=== PATIENT | male | born 1970 | race Caucasian/White ===

== ENCOUNTER → 2018-05-03 07:13 | Outpatient (CLI) | payer OTHER, MEDICAID, SELFPAY ==
[2018-05-03 08:32] LABS: Add Manual Diff / Slide Review NO; Basophils Percent Auto 0.5 % (0-2); Eosinophils Percent Auto 1.8 % (2-4); Hematocrit 37.7 % (41-53); Lymphocytes Percent Auto 32.8 % (25-40); Mean Corpuscular HGB Conc 31.7 % (30-36); Mean Corpuscular Volume 78.8 fL (80-100); Monocytes Percent Auto 7.7 % (3-14); Neutrophils Absolute Auto 6000 /uL (3000-5900); Neutrophils Percent Auto 57.2 % (50-75); Platelet Count 242 X10^3/uL (150-400); Red Blood Cell Count 4.79 X10^6/uL (4.5-5.9); Red Cell Distribution Width 16.2 % (11.6-14.8); White Blood Cell Count 10.5 X10^3/uL (4.5-11.0)
[2018-05-03 09:06] LABS: Alanine Aminotransferase 36 IU/L (21-72); Albumin 4.3 g/dL (3.5-5.0); Albumin Globulin Ratio 1.4 (1.0-2.8); Alkaline Phosphatase 90 U/L (38-126); Aspartate Aminotransferase 20 IU/L (17-59); Bilirubin Total 0.4 mg/dL (0.2-1.3); Blood Urea Nitrogen 20 mg/dL (9-20); Calcium 9.6 mg/dL (8.4-10.2); Carbon Dioxide 34 mmol/L (22-32); Chloride 99 mmol/L (98-107); Cholesterol 257 mg/dL (140-199); Estimated Glomerular Filt Rate > 60.0 mL/min (>60); Globulin 3.1 g/dL (1.7-4.1); Glucose 134 mg/dL (70-100); HDL Cholesterol 50 mg/dL (40-60); HEMOLYSIS < 15 (0-50); LDL Cholesterol Calculated 161 mg/dL (<100); Sodium 141 mmol/L (137-145); Total Protein 7.4 g/dL (6.3-8.2); Triglycerides 228 mg/dL (35-150)
[2018-05-03 09:20] LABS: Hemoglobin A1C% w Est Avg Glu 7.1 % (4.0-6.0)
[2018-05-03 09:35] LABS: Prostate Specific Antigen Scrn 0.573 ng/mL (0.1-4.0); Thyroid Stimulating Hormone 1.79 uIU/mL (0.47-4.68)
== END ==
PROVIDERS: PCP Family Medicine; Visit Provider Family Medicine
DX: E11.9 Type 2 diabetes mellitus without complications (principal)
CPT/HCPCS: 36415; 80053; 80061; 83036; 84443; 85025; G0103

== ENCOUNTER 2018-06-30 11:10 | Emergency (ER) | payer OTHER, MEDICAID, SELFPAY ==
[2018-06-30 11:20] VITALS: BP 183/95; PULSE 110; RESP 18; TEMP 37; O2SAT 98; BMI 51.5
--- NOTE | 2018-06-30 11:39 | ED.SKABFB ---
HPI - Skin/Abscess/Foreign Bdy General Chief complaint: Skin/Abscess/Foreign Body Stated complaint: BLEED OUT ON L LEG Time Seen by Provider: 06/30/18 11:29 Source: patient Mode of arrival: ambulatory Limitations: no limitations History of Present Illness HPI narrative: patient is a 48-year-old male here for evaluation of a bleeding varicose vein in his left lower extremity. Patient states that it started this morning when he is in the shower. States that it bled for approximately 30 min. He did put pressure over the area however blood through all the dressings that he had. He called 911 and they put a pressure dressing on it. Patient arrived here to the emergency department by POV. Related Data Home Medications Medication Instructions Recorded Confirmed mometasone-formoterol [Dulera] 2 spray INH BID #0 02/24/17 06/30/18 Disabled Parking Permit / . PRN 06/30/18 06/30/18 albuterol sulfate [ProAir HFA] 1 puff INHALATION DIRECTED 06/30/18 06/30/18 budesonide [Pulmicort Flexhaler] 1 puff INHALATION DIRECTED 06/30/18 06/30/18 cyclobenzaprine 10 mg PO TID PRN 06/30/18 06/30/18 furosemide 1 tab PO QDAY 06/30/18 06/30/18 glimepiride [Amaryl] 8 mg PO QDAY 06/30/18 06/30/18 metformin [Glucophage] 2 tab PO BIDCC 06/30/18 06/30/18 montelukast 1 tab PO DAILY 06/30/18 06/30/18 tiotropium bromide [Spiriva with 1 cap INHALATION DAILY 06/30/18 06/30/18 HandiHaler] Previous Rx's Medication Instructions Recorded Glucose: Test Strips str SQ TID #270 02/04/17 Lancets box SQ TID #3 02/04/17 Glucose: Home Monitor ea #1 02/05/17 nystatin 100,000 unit PO SEE INSTRUCTIONS 04/07/17 #140 ml Nebulizer: Home Unit units Q4HP PRN #1 05/06/17 epinephrine [EpiPen 2-Nura] 0.3 mg IM SEE INSTRUCTIONS #1 kit 07/13/17 prednisone 10 mg PO QDAY #100 tab 09/08/17 amlodipine 10 mg PO QDAY #90 tab 10/12/17 finasteride 5 mg PO QDAY #30 tab 10/19/17 omeprazole 40 mg PO QAM #90 cap 02/02/18 diazepam 5 mg tablet 5 mg PO BEDTIME #30 tab 03/07/18 oxycodone 20 mg tablet 20 mg PO QDAY #30 tab 03/07/18 losartan [Cozaar] 50 mg PO QDAY #90 tab 05/03/18 atorvastatin 20 mg tablet 20 mg PO HS #90 tab 05/09/18 gabapentin 300 mg capsule 900 mg PO TID #270 cap 05/09/18 ipratropium-albuterol 0.5 mg-3 3 ml INHALATION Q4HP PRN #90 each 05/09/18 mg(2.5 mg base)/3 mL nebulization soln fentanyl 12 mcg/hr transdermal 1 patch TOPICAL Q72H #5 patch 06/02/18 patch oxycodone-acetaminophen 10 mg-325 2 tab PO Q4H PRN #180 tab 06/02/18 mg tablet Allergies Allergy/AdvReac Type Severity Reaction Status Date / Time Cephalosporins Allergy Severe ANAPHYLAXIS Unverified 05/20/18 15:43 [CEPHALOSPORINS] Penicillins [PENICILLINS] Allergy Severe ANAPHYLAXIS Unverified 05/20/18 15:43 cephalexin [CEPHALEXIN] Allergy Mild FACIAL Unverified 05/20/18 15:43 SWELLING doxycycline [DOXYCYCLINE] Allergy Mild HIVES Unverified 05/20/18 15:43 terbinafine [TERBINAFINE] Allergy Unknown Unverified 05/20/18 15:43 Beta-Blockers AdvReac Mild ASTHMA Unverified 05/20/18 15:43 (Beta-Adrenergic Bloc nadolol [NADOLOL] AdvReac Mild AGGREVATES Unverified 05/20/18 15:43 ASTHMA Sulfa (Sulfonamide AdvReac Mild VOMITING Unverified 05/20/18 15:43 Antibiotics) [SULFA (SULFONAMIDE ANTIBIOTICS)] Review of Systems Musculoskeletal Denies myalgias and Denies arthralgias Integumentary/Breasts Comments: Bleeding varicose vein Neurologic Comments: no tingling left lower extremity Hematologic/Lymphatic Denies easy bleeding and Denies easy bruising PFSH Medical History Hyperlipidemia (Acute) Hypertension (Acute) Varicose vein of leg (Acute) Surgical History No pertinent past surgical history (Acute) Social History Smoking Status: Current every day smoker Exam Initial Vital Signs Initial Vital Signs: Vital Signs Temperature 98.6 F 06/30/18 11:20 Pulse Rate 110 H 06/30/18 11:20 Respiratory Rate 18 06/30/18 11:20 Blood Pressure 183/95 H 06/30/18 11:20 Pulse Oximetry 98 06/30/18 11:20 Const General: cooperative, healthy appearing, comfortable, well developed, well groomed and No acute distress Orientation: alert, awake and oriented x3 HENMT Head: normal to inspection and normocephalic Cardio Rate: tachycardic Pulses: dorsalis pedis present on the left Skin Other: multiple varicose veins however no new lesions Neuro Other: sensation intact to light touch left lower extremity Extrem General: normal to inspection and capillary refill normal Psych Appearance: grossly normal and well kempt Course Vital Signs - 8 hr 06/30/18 11:20 Temperature 98.6 F Pulse Rate 110 H Respiratory Rate 18 Blood Pressure 183/95 H Pulse Oximetry 98 MDM - Skin/Abscess/Foreign Bdy MDM Narrative Medical decision making narrative: removed the pressure dressing that was on his left lower extremity and there was no active bleeding. He was observed here in the emergency department for period of time with no return of the bleeding. Patient was given dressings just in case this happened again. He is given return precautions. He expressed understanding and agreement with plan. Discharge Plan Departure Patient Disposition: Home Clinical Impression: Varicose vein of leg Instructions: DI for Varicose Veins Activity Restrictions/Additional Instructions: if the bleeding starts again put pressure over the area like we discussed. Call your primary care doctor for a follow-up. Return to the emergency department for any new or worsening symptoms Prescriptions: No Action Glucose: Test Strips SQ TID Qty: 270 RF: 3 Lancets SQ TID Qty: 3 RF: 3 Glucose: Home Monitor Qty: 1 RF: 0 mometasone-formoterol [Dulera] 200 MCG/5 MCG HFA aerosol inhaler 2 spray INH BID Qty: 0 RF: 0 nystatin 100,000 UNIT/1 ML suspension 100,000 unit PO SEE INSTRUCTIONS Qty: 140 RF: 2 Nebulizer: Home Unit Q4HP PRNQty: 1 RF: 0 epinephrine [EpiPen 2-Nura] 0.3 MG/0.3 ML auto-injector 0.3 mg IM SEE INSTRUCTIONS Qty: 1 RF: 0 prednisone 10 MG tablet 10 mg PO QDAY Qty: 100 RF: 5 amlodipine 10 MG tablet 10 mg PO QDAY Qty: 90 RF: 3 finasteride 5 MG tablet 5 mg PO QDAY Qty: 30 RF: 11 omeprazole 40 mg capsule,delayed release(DR/EC) 40 mg PO QAM Qty: 90 RF: 3 losartan [Cozaar] 50 mg tablet 50 mg PO QDAY Qty: 90 RF: 3 gabapentin [Neurontin] 300 mg capsule 900 mg PO TID Qty: 270 RF: 5 ipratropium-albuterol 0.5 mg-3 mg(2.5 mg base)/3 mL solution for nebulization 3 ml INHALATION Q4HP PRN (Reason: shortness of breath, wheezing) Qty: 90 RF: 5 atorvastatin [Lipitor] 20 mg tablet 20 mg PO HS Qty: 90 RF: 1 diazepam [Valium] 5 mg tablet 5 mg PO BEDTIME Qty: 30 RF: 5 oxycodone 20 mg tablet 20 mg PO QDAY Qty: 30 RF: 0 oxycodone-acetaminophen 10-325 mg tablet 2 tab PO Q4H PRN (Reason: pain) Qty: 180 RF: 0 fentanyl 12 mcg/hr patch 72 hour 1 patch Topical Q72H Qty: 5 RF: 0 cyclobenzaprine 10 mg tablet 10 mg PO TID PRN (Reason: Spasms) RF: 0 montelukast 10 mg tablet 1 tab PO DAILY RF: 0 albuterol sulfate [ProAir HFA] 90 mcg/actuation HFA aerosol inhaler 1 puff Inhalation DIRECTED RF: 0 tiotropium bromide [Spiriva with HandiHaler] 18 mcg capsule, w/inhalation device 1 cap Inhalation DAILY RF: 0 budesonide [Pulmicort Flexhaler] 180 mcg/actuation aerosol powdr breath activated 1 puff Inhalation DIRECTED RF: 0 furosemide 40 mg tablet 1 tab PO QDAY RF: 0 metformin [Glucophage] 500 mg tablet 2 tab PO BIDCC RF: 0 glimepiride [Amaryl] 4 MG tablet 8 mg PO QDAY RF: 0 Disabled Parking Permit 1 / . PRN RF: 0
--- NOTE | 2018-06-30 11:49 | PC.NURSE ---
assisted in washing pts feet
--- NOTE | 2018-06-30 12:19 | PC.NURSE ---
pt has a varicose vein that popped on his left ankle. bleeding has stopped upon arrival to ER
[2018-06-30 12:21] VITALS: BP 158/104; PULSE 95; RESP 18; O2SAT 97
== END 2018-06-30 12:21 | disposition home or self-care (01) ==
PROVIDERS: Emergency Provider Emergency Medicine; Family Provider Family Medicine; PCP Family Medicine
DX: I83.92 Asymptomatic varicose veins of left lower extremity (principal)
CPT/HCPCS: 99282

== ENCOUNTER → 2018-12-29 10:50 | Outpatient (CLI) | payer OTHER, MEDICAID, SELFPAY | PROVIDERS: PCP Family Medicine; Visit Provider Family Medicine | DX: M54.12 Radiculopathy, cervical region (principal) | CPT/HCPCS: 95885; 95886; 95912 ==

== ENCOUNTER → 2019-02-03 09:29 | Outpatient (CLI) | payer OTHER, MEDICAID, SELFPAY ==
[2019-02-03 10:51] LABS: Add Manual Diff / Slide Review NO; Basophils Absolute Auto 100 /uL (0-100); Basophils Percent Auto 0.5 % (0-2); Eosinophils Absolute Auto 200 /uL (0-450); Eosinophils Percent Auto 1.9 % (2-4); Hematocrit 37.6 % (41-53); Lymphocytes Absolute Auto 3300 /uL (1100-4500); Lymphocytes Percent Auto 32.9 % (25-40); Mean Corpuscular HGB Conc 32.1 % (30-36); Mean Corpuscular Hemoglobin 24.9 PG (26-34); Mean Corpuscular Volume 77.8 fL (80-100); Monocytes Absolute Auto 800 /uL (0-900); Monocytes Percent Auto 7.7 % (3-14); Neutrophils Absolute Auto 5700 /uL (1500-7000); Platelet Count 239 X10^3/uL (150-400); Red Blood Cell Count 4.83 X10^6/uL (4.5-5.9); Red Cell Distribution Width 16.8 % (11.6-14.8); White Blood Cell Count 9.9 X10^3/uL (4.5-11.0)
[2019-02-03 10:52] LABS: Hemoglobin A1C% w Est Avg Glu 7.5 % (4.0-6.0)
[2019-02-03 11:05] LABS: Alanine Aminotransferase 35 IU/L (21-72); Albumin 4.3 g/dL (3.5-5.0); Albumin Globulin Ratio 1.4 (1.0-2.8); Alkaline Phosphatase 95 U/L (38-126); Aspartate Aminotransferase 18 IU/L (17-59); BUN Creatinine Ratio 26.3 (6-22); Bilirubin Total 0.4 mg/dL (0.2-1.3); Blood Urea Nitrogen 21 mg/dL (9-20); Calcium 9.7 mg/dL (8.4-10.2); Carbon Dioxide 33 mmol/L (22-32); Chloride 98 mmol/L (98-107); Cholesterol 275 mg/dL (140-199); Estimated Glomerular Filt Rate > 60.0 mL/min (>60); Globulin 3.1 g/dL (1.7-4.1); Glucose 150 mg/dL (70-100); HDL Cholesterol 47 mg/dL (40-60); HEMOLYSIS < 15 (0-50); LDL Cholesterol Calculated 175 mg/dL (<100); Potassium 4.1 mmol/L (3.4-5.1); Sodium 138 mmol/L (137-145); Total Protein 7.4 g/dL (6.3-8.2); Triglycerides 267 mg/dL (35-150)
[2019-02-03 11:37] LABS: Thyroid Stimulating Hormone 1.28 uIU/mL (0.47-4.68)
[2019-02-03 15:13] LABS: Creatinine Urine Random 52.9 mg/dL
[2019-02-03 15:36] LABS: Microalbumi Creatinin Ratio Ur 1865.7 ug/mg CR (<30); Microalbumin Urine Random 98.7 mg/dL (0-1.6)
== END ==
PROVIDERS: PCP Family Medicine; Visit Provider Family Medicine
DX: E11.9 Type 2 diabetes mellitus without complications (principal); Z12.5 Encounter for screening for malignant neoplasm of prostate
CPT/HCPCS: 36415; 80053; 80061; 82043; 82570; 83036; 84443; 85025; G0103

== ENCOUNTER → 2019-05-17 07:26 | Outpatient (CLI) | payer OTHER, MEDICAID, SELFPAY ==
[2019-05-17 08:33] LABS: Alanine Aminotransferase 31 IU/L (21-72); Albumin 4.3 g/dL (3.5-5.0); Albumin Globulin Ratio 1.4 (1.0-2.8); Alkaline Phosphatase 101 U/L (38-126); Aspartate Aminotransferase 20 IU/L (17-59); BUN Creatinine Ratio 28.6 (6-22); Bilirubin Total 0.4 mg/dL (0.2-1.3); Blood Urea Nitrogen 20 mg/dL (9-20); Calcium 9.7 mg/dL (8.4-10.2); Carbon Dioxide 32 mmol/L (22-32); Chloride 99 mmol/L (98-107); Cholesterol 270 mg/dL (140-199); Estimated Glomerular Filt Rate > 60.0 mL/min (>60); Globulin 3.1 g/dL (1.7-4.1); Glucose 135 mg/dL (70-100); HDL Cholesterol 47 mg/dL (40-60); HEMOLYSIS < 15 (0-50); LDL Cholesterol Calculated 168 mg/dL (<100); Potassium 3.9 mmol/L (3.4-5.1); Sodium 140 mmol/L (137-145); Total Protein 7.4 g/dL (6.3-8.2); Triglycerides 277 mg/dL (35-150)
[2019-05-17 08:41] LABS: Add Manual Diff / Slide Review NO; Basophils Absolute Auto 100 /uL (0-100); Basophils Percent Auto 0.6 % (0-2); Eosinophils Absolute Auto 300 /uL (0-450); Eosinophils Percent Auto 2.6 % (2-4); Hematocrit 36.7 % (41-53); Hemoglobin 11.7 g/dL (13.5-17.5); Lymphocytes Absolute Auto 3400 /uL (1100-4500); Lymphocytes Percent Auto 35.3 % (25-40); Mean Corpuscular Hemoglobin 24.2 PG (26-34); Mean Corpuscular Volume 75.7 fL (80-100); Monocytes Absolute Auto 700 /uL (0-900); Monocytes Percent Auto 6.7 % (3-14); Neutrophils Absolute Auto 5300 /uL (1500-7000); Neutrophils Percent Auto 54.8 % (50-75); Platelet Count 246 X10^3/uL (150-400); Red Blood Cell Count 4.85 X10^6/uL (4.5-5.9); Red Cell Distribution Width 17.1 % (11.6-14.8); White Blood Cell Count 9.7 X10^3/uL (4.5-11.0)
[2019-05-17 08:49] LABS: Hemoglobin A1C% w Est Avg Glu 7.9 % (4.0-6.0)
[2019-05-17 09:02] LABS: Prostate Specific Antigen Scrn 0.275 ng/mL (0.1-4.0)
[2019-05-17 09:11] LABS: Thyroid Stimulating Hormone 1.22 uIU/mL (0.47-4.68)
== END ==
PROVIDERS: PCP Family Medicine; Visit Provider Family Medicine
DX: E11.9 Type 2 diabetes mellitus without complications (principal)
CPT/HCPCS: 36415; 80053; 80061; 83036; 84443; 85025; G0103

== ENCOUNTER → 2019-08-25 07:06 | Outpatient (CLI) | payer OTHER, MEDICAID, SELFPAY ==
[2019-08-25 09:00] LABS: Hemoglobin A1C% w Est Avg Glu 7.8 % (4.0-6.0)
[2019-08-25 09:11] LABS: BUN Creatinine Ratio 27.5 (6-22); Blood Urea Nitrogen 22 mg/dL (9-20); Calcium 9.5 mg/dL (8.4-10.2); Carbon Dioxide 32 mmol/L (22-32); Chloride 98 mmol/L (98-107); Cholesterol 291 mg/dL (140-199); Estimated Glomerular Filt Rate > 60.0 mL/min (>60); Glucose 127 mg/dL (70-100); HDL Cholesterol 46 mg/dL (40-60); HEMOLYSIS < 15 (0-50); LDL Cholesterol Calculated 179 mg/dL (<100); Potassium 4.1 mmol/L (3.4-5.1); Sodium 138 mmol/L (137-145); Triglycerides 331 mg/dL (35-150)
[2019-08-25 09:39] LABS: Creatinine Urine Random 41.1 mg/dL
[2019-08-25 10:22] LABS: Microalbumi Creatinin Ratio Ur 2846.7 ug/mg CR (<30)
== END ==
PROVIDERS: PCP Family Medicine; Visit Provider Family Medicine
DX: E11.9 Type 2 diabetes mellitus without complications (principal)
CPT/HCPCS: 36415; 80048; 80061; 82043; 82570; 83036

== ENCOUNTER → 2020-03-12 09:46 | Outpatient (CLI) | payer OTHER, MEDICAID, SELFPAY ==
[2020-03-12 10:16] LABS: Hemoglobin A1C% w Est Avg Glu 8.3 % (4.0-6.0)
[2020-03-12 10:32] LABS: BUN Creatinine Ratio 23.4 (6-22); Blood Urea Nitrogen 18 mg/dL (9-20); Calcium 9.7 mg/dL (8.4-10.2); Carbon Dioxide 32 mmol/L (22-32); Chloride 101 mmol/L (98-107); Cholesterol 267 mg/dL (140-199); Estimated Glomerular Filt Rate > 60.0 mL/min (>60); Glucose 155 mg/dL (70-100); HDL Cholesterol 52 mg/dL (40-60); HEMOLYSIS < 15 (0-50); LDL Cholesterol Calculated 164 mg/dL (<100); Potassium 4.2 mmol/L (3.4-5.1); Sodium 137 mmol/L (137-145); Triglycerides 253 mg/dL (35-150)
== END ==
PROVIDERS: PCP Family Medicine; Referring Provider Family Medicine; Visit Provider Family Medicine
DX: E11.9 Type 2 diabetes mellitus without complications (principal)
CPT/HCPCS: 36415; 80048; 80061; 83036

== ENCOUNTER → 2020-08-30 11:41 | Outpatient (CLI) | payer OTHER, MEDICAID, SELFPAY ==
[2020-08-30 13:06] LABS: Hemoglobin A1C% w Est Avg Glu 8.9 % (4.0-6.0)
[2020-08-30 13:10] LABS: BUN Creatinine Ratio 28.9 (6-22); Blood Urea Nitrogen 24 mg/dL (9-20); Calcium 9.7 mg/dL (8.4-10.2); Carbon Dioxide 31 mmol/L (22-32); Chloride 99 mmol/L (98-107); Estimated Glomerular Filt Rate > 60.0 mL/min (>60); Glucose 198 mg/dL (70-100); HEMOLYSIS < 15 (0-50); Potassium 4.6 mmol/L (3.4-5.1); Sodium 136 mmol/L (137-145)
== END ==
PROVIDERS: PCP Family Medicine; Referring Provider Family Medicine; Visit Provider Family Medicine
DX: E11.9 Type 2 diabetes mellitus without complications (principal); M54.12 Radiculopathy, cervical region; M54.2 Cervicalgia
CPT/HCPCS: 36415; 80048; 83036

== ENCOUNTER 2022-12-16 13:45 | Outpatient (RCR) | payer OTHER, MEDICAID, SELFPAY ==
--- NOTE | 2022-11-11 17:57 | PT.OIE ---
Current Diagnoses Obesity, unspecified (11/11/22) Chronic pain syndrome (11/11/22) Spinal stenosis, cervical region (11/11/22) Past Medical History (Last Reviewed 11/12/22 @ 12:47 by JARON Hernandez) Cervical stenosis of spinal canal Chronic pain syndrome Hyperlipidemia Hypertension Myocarditis Varicose vein of leg Past Surgical History (Last Reviewed 11/12/22 @ 12:47 by JARON Hernandez) No pertinent past surgical history Visit Care Team Role Provider Type Ricardo Victoria MD Attending Provider Physician Family Provider Primary Care Provider Referring Provider Specialty: Family Practice Address: [address] [place] [address] Email: [email or web address] Physical Therapy Initial Evaluation PT-OP-A Visit Information Start: 11/11/22 17:59 Freq: Status: Active Protocol: Document 11/11/22 16:45 DCW (Rec: 11/11/22 18:05 DCW [id number]) Out-Patient Physical Therapy Visit Information Visit Information Visit Type Initial Evaluation Visit Start Time 16:45 Visit Stop Time 17:30 Total Visit Minutes 45 Visit Number 1 Number of MATURITY CHECKER Visits 0 Evaluation Information Evaluation Date 11/11/22 PT-OP-B Current Condition Start: 11/11/22 17:59 Freq: Status: Active Protocol: Document 11/11/22 16:45 DCW (Rec: 11/12/22 17:57 DCW [id number]) Current Condition History of Current Condition Onset Date Since at least 2009 Current Complaints Severe cervical and shoulder pain, immobility, worsening posture History of Current Condition Pt is a 52 year old male presenting with a 13+ year history of severe cervical pain, stiffness, shoulder pain , worsening posture, and general weakness. 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 Reports he is not a surgical candidate due to location of the bulges. Reports he has had a harder and harder time keeping his neck up straight. Reports pain is typically fairly consistently an 8-9/10, but will get breakthrough pain that is very severe and completely debilitating. Only thing at all pt reports to have found help with the pain is drugs. Gets small amounts of relief with ice packs. Pain limits his ability to lie on his back or right side, is only comfortable lying on his left side with good cervical support. Prior Treatments and Tests Pt notes he has attempted PT multiple times in the past. Treatment Goals Patient/Caregiver Goals Pt's goal is to work with therapy enough to get approval for a new MRI, but would love to get decreased tone in cervical spine, as well as improve forward head/rounded shoulder posture. PT-OP-C Subjective Start: 11/11/22 17:59 Freq: Status: Active Protocol: Document 11/11/22 16:45 DCW (Rec: 11/11/22 18:05 DCW [id number]) OP-PT Subjective Patient Comments Patient Comments Pt notes he has had PT in the past, but has always been asked to quit due to chronic pain issues. Patient Questionnaires Neck Disability Index NDI Score 42/50 = 84% Quick Dash- Upper Extremity Quick Dash UE Score 79.55% Quick Dash UE Impairment 60 to 79% Impaired (Score 60- 79) OP-PT Pain Assessment Pain Assessment Grid Paper Pain Assessment Grid Completed Yes Location Posterior Neck Intensity 9 Scale Used Numeric (0 - 10) Frequency Constant PT-OP-F Manual Assessment Start: 11/11/22 17:59 Freq: Status: Active Protocol: Document 11/11/22 16:45 DCW (Rec: 11/12/22 17:36 DCW [id number]) Manual Assessments Soft Tissue Assessment Soft Tissue Mobility Assessment Tenderness to Palpation: 4/4: Palpation not allowed bilateral suboccipitals, upper traps, levator scap. Tenderness to palpation 3/4: Wincing and withdraw bilateral rhomboids, parascapulars PT-OP-J Posture/Palpation/Skin Start: 11/11/22 17:59 Freq: Status: Active Protocol: Document 11/11/22 16:45 DCW (Rec: 11/12/22 17:36 DCW [id number]) Posture Evaluation Position Sitting Evaluation View Lateral Head/C-Spine Posture Forward Head T-Spine Posture Increased Kyphosis Shoulder Posture (L) Rounded,(R) Rounded PT-OP-K Range of Motion Start: 11/11/22 17:59 Freq: Status: Active Protocol: Document 11/11/22 16:45 DCW (Rec: 11/12/22 17:36 DCW [id number]) Cervical Spine Range of Motion Cervical Spine Active Degrees Testing Position Sitting Flexion 30 Extension 15 Rotation Left 23 Rotation Right 30 Lateral Flexion Left 18 Lateral Flexion Right 15 ROM Limitations Soft Tissue Tightness,Muscle Weakness,Muscle Tone,Pain Shoulder Goniometric Range of Motion Shoulder Right Active Shoulder ROM WFL No Testing Position Sitting Flexion 100 Abduction 110 Left Active Shoulder ROM WFL No Testing Position Sitting Flexion 90 Abduction 115 PT-OP-L Special Tests Start: 11/11/22 17:59 Freq: Status: Active Protocol: Document 11/11/22 16:45 DCW (Rec: 11/12/22 17:36 DCW [id number]) Special Tests Cervical Spine Special Tests Traction Test Results Positive for cervical pain Passive Neck Flexion Test Results Positive for cervical pain PT-OP-M Strength Start: 11/11/22 17:59 Freq: Status: Active Protocol: Document 11/11/22 16:45 DCW (Rec: 11/12/22 17:36 DCW [id number]) Shoulder Strength Shoulder Manual Muscle Testing Right Flexion 3- Fair- Abduction (C5) 3- Fair- External Rotation 3+ Fair+ Internal Rotation 3+ Fair+ Left Flexion 3- Fair- Abduction (C5) 3- Fair- External Rotation 3+ Fair+ Internal Rotation 3+ Fair+ PT-OP-Q Treatments Start: 11/11/22 17:59 Freq: Status: Active Protocol: Document 11/11/22 16:45 DCW (Rec: 11/11/22 18:05 DCW [id number]) Therapeutic Exercises Sitting Exercises Scapular retraction Sitting Exercise Name Scapular retraction Chin tucks Sitting Exercise Name Chin tucks PT-OP-T Assessment and Plan Start: 11/11/22 17:59 Freq: Status: Active Protocol: Document 11/11/22 16:45 DCW (Rec: 11/12/22 17:57 DCW [id number]) Physical Therapy Assessment Rehab Potential Rehabilitation Potential Fair Evaluation Complexity Number of Personal Factors/Comorbidities 3 or More Number of Body Systems Impaired 4 or More Clinical Presentation at Evaluation Unstable Impairments Impairments Activity Tolerance,Functional Activities,Functional Mobility ,Pain,Posture,ROM,Soft Tissue Mobility,Strength,Tone Goals Three Impairment Pt experiencing worsening forward head/rounded shoulder posture Retirement Goal (LTG) Pt to demonstrate improved cervical flexion and scapular retraction strength by presenting with a neutral cervical spine, eliminating current forward head/rounded shoulders posture LTG Duration 02/09/23 Two Impairment Pt unable to sleep through the night due to severe pain Retirement Goal (LTG) Pt to report reduction in average pain from an 8-9/10 to 5/10 in order to improve ability to sleep throughout a full night. LTG Duration 02/09/23 One Impairment Pt does not have an appropriate home exercise program Short Term Goal (STG) Pt to be independent and compliant with an appropriate HEP STG Duration 12/26/22 Assessment Summary Assessment Pt is a highly-complex patient suffering from chronic pain in his cervical spine and shoulder, limiting most daily functional activities. Biggest deficits, per initial evaluation, include a presentation of upper cross syndrome, severe tone with very high levels of pain throughout his cervical spine, limited ROM, global weakness, worsening mobility, and poor pain control. Pt should benefit from skilled therapy, initially focusing on improving posture, as well as gentle strengthening/ flexibility in an effort to decrease effects from upper cross syndrome. Pt would additionally benefit from MRI for comparison of prior MRI to determine level of degeneration over the past 6-7 years. If pt responds well to treatment, may eventually be able to initiate more involved strengthening and tone management to increase pt's participation in daily functional mobility. Physical Therapy Plan Frequency and Duration Frequency of Treatment 1-2x/week Plan of Care Start Date 11/11/22 Plan of Care End Date 02/09/23 Therapeutic Interventions Therapeutic Interventions Home Exercise Program,Joint Mobilizations,Manual Therapy, Neuromuscular Re-education, Patient/Caregiver Education, Self-Care/Home Management,Soft Tissue Mobilization, Therapeutic Activities, Therapeutic Exercises Modalities Cold Pack/Ice Massage,Hot Packs,Ultrasound Next Visit Focus/Plan Next Note Type Treatment Note Next Visit Plan Gentle STM, strengthening as tolerated
--- NOTE | 2022-11-11 17:57 | PT.OPPOC ---
Physical, Occupational & Speech Therapy At [facility] Current Diagnoses Obesity, unspecified (11/11/22) Chronic pain syndrome (11/11/22) Spinal stenosis, cervical region (11/11/22) Visit Care Team Role Provider Type Ricardo Victoria MD Attending Provider Physician Family Provider Primary Care Provider Referring Provider Specialty: Family Practice Address: [address] [place] [address] Email: [email or web address] Plan Of Care PT-OP-T Assessment and Plan Start: 11/11/22 17:59 Freq: Status: Active Protocol: Document 11/11/22 16:45 DCW (Rec: 11/12/22 17:57 DCW [id number]) Physical Therapy Assessment Rehab Potential Rehabilitation Potential Fair Evaluation Complexity Number of Personal Factors/Comorbidities 3 or More Number of Body Systems Impaired 4 or More Clinical Presentation at Evaluation Unstable Impairments Impairments Activity Tolerance,Functional Activities,Functional Mobility ,Pain,Posture,ROM,Soft Tissue Mobility,Strength,Tone Goals Three Impairment Pt experiencing worsening forward head/rounded shoulder posture Long-Term Goal (LTG) Pt to demonstrate improved cervical flexion and scapular retraction strength by presenting with a neutral cervical spine, eliminating current forward head/rounded shoulders posture LTG Duration 02/09/23 Two Impairment Pt unable to sleep through the night due to severe pain Long-Term Goal (LTG) Pt to report reduction in average pain from an 8-9/10 to 5/10 in order to improve ability to sleep throughout a full night. LTG Duration 02/09/23 One Impairment Pt does not have an appropriate home exercise program Short Term Goal (STG) Pt to be independent and compliant with an appropriate HEP STG Duration 12/26/22 Assessment Summary Assessment Pt is a highly-complex patient suffering from chronic pain in his cervical spine and shoulder, limiting most daily functional activities. Biggest deficits, per initial evaluation, include a presentation of upper cross syndrome, severe tone with very high levels of pain throughout his cervical spine, limited ROM, global weakness, worsening mobility, and poor pain control. Pt should benefit from skilled therapy, initially focusing on improving posture, as well as gentle strengthening/ flexibility in an effort to decrease effects from upper cross syndrome. Pt would additionally benefit from MRI for comparison of prior MRI to determine level of degeneration over the past 6-7 years. If pt responds well to treatment, may eventually be able to initiate more involved strengthening and tone management to increase pt's participation in daily functional mobility. Physical Therapy Plan Frequency and Duration Frequency of Treatment 1-2x/week Plan of Care Start Date 11/11/22 Plan of Care End Date 02/09/23 Therapeutic Interventions Therapeutic Interventions Home Exercise Program,Joint Mobilizations,Manual Therapy, Neuromuscular Re-education, Patient/Caregiver Education, Self-Care/Home Management,Soft Tissue Mobilization, Therapeutic Activities, Therapeutic Exercises Modalities Cold Pack/Ice Massage,Hot Packs,Ultrasound Next Visit Focus/Plan Next Note Type Treatment Note Next Visit Plan Gentle STM, strengthening as tolerated Plan of Care Dates Plan of Care Start Date 11/11/22 Plan of Care End Date 02/09/23 Electronically Signed by: Gerard Caicedo, PT 11/12/22 1371 If you are in agreement with this Plan of Care, please return a signed and dated copy. I have reviewed this Plan of Care and certify that the skilled therapy services above are required to meet the patient?s needs. Physician Signature Date Printed Name and Credentials Clinical Instructor Signature Printed Name and Credentials
--- NOTE | 2022-11-17 15:15 | PT.OTN ---
Current Diagnoses Obesity, unspecified (11/17/22) Chronic pain syndrome (11/17/22) Spinal stenosis, cervical region (11/17/22) Physical Therapy Treatment Note PT-OP-A Visit Information Start: 11/11/22 17:59 Freq: Status: Active Protocol: Document 11/17/22 14:31 DCW (Rec: 11/17/22 15:15 DCW [id number]) Out-Patient Physical Therapy Visit Information Visit Information Visit Type Treatment Note Visit Start Time 14:31 Visit Stop Time 15:15 Total Visit Minutes 44 Visit Number 2 Number of EDGE BANDER OPERATOR Visits 0 Evaluation Information Evaluation Date 11/11/22 PT-OP-B Current Condition Start: 11/11/22 17:59 Freq: Status: Active Protocol: Document 11/11/22 16:45 DCW (Rec: 11/12/22 17:57 DCW [id number]) Current Condition History of Current Condition Onset Date Since at least 2009 Current Complaints Severe cervical and shoulder pain, immobility, worsening posture History of Current Condition Pt is a 52 year old male presenting with a 13+ year history of severe cervical pain, stiffness, shoulder pain , worsening posture, and general weakness. 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 Reports he is not a surgical candidate due to location of the bulges. Reports he has had a harder and harder time keeping his neck up straight. Reports pain is typically fairly consistently an 8-9/10, but will get breakthrough pain that is very severe and completely debilitating. Only thing at all pt reports to have found help with the pain is drugs. Gets small amounts of relief with ice packs. Pain limits his ability to lie on his back or right side, is only comfortable lying on his left side with good cervical support. Prior Treatments and Tests Pt notes he has attempted PT multiple times in the past. Treatment Goals Patient/Caregiver Goals Pt's goal is to work with therapy enough to get approval for a new MRI, but would love to get decreased tone in cervical spine, as well as improve forward head/rounded shoulder posture. PT-OP-C Subjective Start: 11/11/22 17:59 Freq: Status: Active Protocol: Document 11/17/22 14:31 DCW (Rec: 11/17/22 15:15 DCW [id number]) OP-PT Subjective Patient Comments Patient Comments It always varies day to day, and today is kind of a rough one. PT-OP-F Manual Assessment Start: 11/11/22 17:59 Freq: Status: Active Protocol: Document 11/11/22 16:45 DCW (Rec: 11/12/22 17:36 DCW [id number]) Manual Assessments Soft Tissue Assessment Soft Tissue Mobility Assessment Tenderness to Palpation: 4/4: Palpation not allowed bilateral suboccipitals, upper traps, levator scap. Tenderness to palpation 3/4: Wincing and withdraw bilateral rhomboids, parascapulars PT-OP-J Posture/Palpation/Skin Start: 11/11/22 17:59 Freq: Status: Active Protocol: Document 11/11/22 16:45 DCW (Rec: 11/12/22 17:36 DCW [id number]) Posture Evaluation Position Sitting Evaluation View Lateral Head/C-Spine Posture Forward Head T-Spine Posture Increased Kyphosis Shoulder Posture (L) Rounded,(R) Rounded PT-OP-K Range of Motion Start: 11/11/22 17:59 Freq: Status: Active Protocol: Document 11/11/22 16:45 DCW (Rec: 11/12/22 17:36 DCW [id number]) Cervical Spine Range of Motion Cervical Spine Active Degrees Testing Position Sitting Flexion 30 Extension 15 Rotation Left 23 Rotation Right 30 Lateral Flexion Left 18 Lateral Flexion Right 15 ROM Limitations Soft Tissue Tightness,Muscle Weakness,Muscle Tone,Pain Shoulder Goniometric Range of Motion Shoulder Right Active Shoulder ROM WFL No Testing Position Sitting Flexion 100 Abduction 110 Left Active Shoulder ROM WFL No Testing Position Sitting Flexion 90 Abduction 115 PT-OP-L Special Tests Start: 11/11/22 17:59 Freq: Status: Active Protocol: Document 11/11/22 16:45 DCW (Rec: 11/12/22 17:36 DCW [id number]) Special Tests Cervical Spine Special Tests Traction Test Results Positive for cervical pain Passive Neck Flexion Test Results Positive for cervical pain PT-OP-M Strength Start: 11/11/22 17:59 Freq: Status: Active Protocol: Document 11/11/22 16:45 DCW (Rec: 11/12/22 17:36 DCW [id number]) Shoulder Strength Shoulder Manual Muscle Testing Right Flexion 3- Fair- Abduction (C5) 3- Fair- External Rotation 3+ Fair+ Internal Rotation 3+ Fair+ Left Flexion 3- Fair- Abduction (C5) 3- Fair- External Rotation 3+ Fair+ Internal Rotation 3+ Fair+ PT-OP-Q Treatments Start: 11/11/22 17:59 Freq: Status: Active Protocol: Document 11/17/22 14:31 DCW (Rec: 11/17/22 15:15 DCW [id number]) Therapeutic Exercises Standing Exercises IR Standing Exercise Name Shoulder IR Side bilateral Resistance Lv 2 Flexion Standing Exercise Name Shoulder Flexion Side bilateral Resistance 2# Abduction Standing Exercise Name Shoulder Abduction Side bilateral Resistance 2# Extension Standing Exercise Name Shoulder Extension Side bilateral Resistance Lv 2 Rows Standing Exercise Name Rows Side bilateral Resistance Lv 2 Other Exercises Resisted Ambulation Other Exercise Name Resisted UE side-stepping Resistance Yellow Manual Therapy Treatment Soft Tissue Mobilization Pecs Body Location B Pecs Mobilization Type Sustained Pressure,Trigger Point Release Body Position Semi-reclined Parascapulars Body Location B Parascapulars Mobilization Type Sustained Pressure,Trigger Point Release Body Position Semi-reclined Upper Trap Body Location B Upper Trap Mobilization Type Sustained Pressure,Trigger Point Release Body Position Semi-reclined PT-OP-T Assessment and Plan Start: 11/11/22 17:59 Freq: Status: Active Protocol: Document 11/17/22 14:31 DCW (Rec: 11/17/22 15:15 DCW [id number]) Physical Therapy Assessment Impairments Impairments Activity Tolerance,Functional Activities,Functional Mobility ,Pain,Posture,ROM,Soft Tissue Mobility,Strength,Tone Goals Three Impairment Pt experiencing worsening forward head/rounded shoulder posture Senior Care Goal (LTG) Pt to demonstrate improved cervical flexion and scapular retraction strength by presenting with a neutral cervical spine, eliminating current forward head/rounded shoulders posture LTG Duration 02/09/23 Two Impairment Pt unable to sleep through the night due to severe pain Associate Doctor Goal (LTG) Pt to report reduction in average pain from an 8-9/10 to 5/10 in order to improve ability to sleep throughout a full night. LTG Duration 02/09/23 One Impairment Pt does not have an appropriate home exercise program Short Term Goal (STG) Pt to be independent and compliant with an appropriate HEP STG Duration 12/26/22 Assessment Summary Assessment Pt tolerated treatment very well, noted some difficulty, but did not felt like anything was over done today, like he has had with prior attempts with PT. Will continue HEP from last visit, discuss next visit response to today's treatment. Physical Therapy Plan Frequency and Duration Frequency of Treatment 1-2x/week Plan of Care Start Date 11/11/22 Plan of Care End Date 02/09/23 Therapeutic Interventions Therapeutic Interventions Home Exercise Program,Joint Mobilizations,Manual Therapy, Neuromuscular Re-education, Patient/Caregiver Education, Self-Care/Home Management,Soft Tissue Mobilization, Therapeutic Activities, Therapeutic Exercises Modalities Cold Pack/Ice Massage,Hot Packs,Ultrasound Next Visit Focus/Plan Next Note Type Treatment Note Next Visit Plan Gentle STM, strengthening as tolerated
--- NOTE | 2022-11-19 16:44 | PT.OTN ---
Current Diagnoses Obesity, unspecified (11/19/22) Chronic pain syndrome (11/19/22) Spinal stenosis, cervical region (11/19/22) Physical Therapy Treatment Note PT-OP-A Visit Information Start: 11/11/22 17:59 Freq: Status: Active Protocol: Document 11/19/22 16:00 DCW (Rec: 11/19/22 16:44 DCW [id number]) Out-Patient Physical Therapy Visit Information Visit Information Visit Type Treatment Note Visit Start Time 16:00 Visit Stop Time 16:45 Total Visit Minutes 45 Visit Number 3 Number of TRENCH SHOVEL OPERATOR Visits 0 Evaluation Information Evaluation Date 11/11/22 PT-OP-B Current Condition Start: 11/11/22 17:59 Freq: Status: Active Protocol: Document 11/11/22 16:45 DCW (Rec: 11/12/22 17:57 DCW [id number]) Current Condition History of Current Condition Onset Date Since at least 2009 Current Complaints Severe cervical and shoulder pain, immobility, worsening posture History of Current Condition Pt is a 52 year old male presenting with a 13+ year history of severe cervical pain, stiffness, shoulder pain , worsening posture, and general weakness. 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 Reports he is not a surgical candidate due to location of the bulges. Reports he has had a harder and harder time keeping his neck up straight. Reports pain is typically fairly consistently an 8-9/10, but will get breakthrough pain that is very severe and completely debilitating. Only thing at all pt reports to have found help with the pain is drugs. Gets small amounts of relief with ice packs. Pain limits his ability to lie on his back or right side, is only comfortable lying on his left side with good cervical support. Prior Treatments and Tests Pt notes he has attempted PT multiple times in the past. Treatment Goals Patient/Caregiver Goals Pt's goal is to work with therapy enough to get approval for a new MRI, but would love to get decreased tone in cervical spine, as well as improve forward head/rounded shoulder posture. PT-OP-C Subjective Start: 11/11/22 17:59 Freq: Status: Active Protocol: Document 11/19/22 16:00 DCW (Rec: 11/19/22 16:44 DCW [id number]) OP-PT Subjective Patient Comments Patient Comments Pt admits he was just a tiny bit, not even worth mentioning more flared up after his last visit. Also notes that since he has been spacing out his fentynol patches, he has been experiencing increased pain. PT-OP-F Manual Assessment Start: 11/11/22 17:59 Freq: Status: Active Protocol: Document 11/11/22 16:45 DCW (Rec: 11/12/22 17:36 DCW [id number]) Manual Assessments Soft Tissue Assessment Soft Tissue Mobility Assessment Tenderness to Palpation: 4: Palpation not allowed bilateral suboccipitals, upper traps, levator scap. Tenderness to palpation 3/4: Wincing and withdraw bilateral rhomboids, parascapulars PT-OP-J Posture/Palpation/Skin Start: 11/11/22 17:59 Freq: Status: Active Protocol: Document 11/11/22 16:45 DCW (Rec: 11/12/22 17:36 DCW [id number]) Posture Evaluation Position Sitting Evaluation View Lateral Head/C-Spine Posture Forward Head T-Spine Posture Increased Kyphosis Shoulder Posture (L) Rounded,(R) Rounded PT-OP-K Range of Motion Start: 11/11/22 17:59 Freq: Status: Active Protocol: Document 11/11/22 16:45 DCW (Rec: 11/12/22 17:36 DCW [id number]) Cervical Spine Range of Motion Cervical Spine Active Degrees Testing Position Sitting Flexion 30 Extension 15 Rotation Left 23 Rotation Right 30 Lateral Flexion Left 18 Lateral Flexion Right 15 ROM Limitations Soft Tissue Tightness,Muscle Weakness,Muscle Tone,Pain Shoulder Goniometric Range of Motion Shoulder Right Active Shoulder ROM WFL No Testing Position Sitting Flexion 100 Abduction 110 Left Active Shoulder ROM WFL No Testing Position Sitting Flexion 90 Abduction 115 PT-OP-L Special Tests Start: 11/11/22 17:59 Freq: Status: Active Protocol: Document 11/11/22 16:45 DCW (Rec: 11/12/22 17:36 DCW [id number]) Special Tests Cervical Spine Special Tests Traction Test Results Positive for cervical pain Passive Neck Flexion Test Results Positive for cervical pain PT-OP-M Strength Start: 11/11/22 17:59 Freq: Status: Active Protocol: Document 11/11/22 16:45 DCW (Rec: 11/12/22 17:36 DCW [id number]) Shoulder Strength Shoulder Manual Muscle Testing Right Flexion 3- Fair- Abduction (C5) 3- Fair- External Rotation 3+ Fair+ Internal Rotation 3+ Fair+ Left Flexion 3- Fair- Abduction (C5) 3- Fair- External Rotation 3+ Fair+ Internal Rotation 3+ Fair+ PT-OP-Q Treatments Start: 11/11/22 17:59 Freq: Status: Active Protocol: Document 11/19/22 16:00 DCW (Rec: 11/19/22 16:44 DCW [id number]) Therapeutic Exercises Standing Exercises IR Standing Exercise Name Shoulder IR/ER Side bilateral Resistance Lv 2 Flexion Standing Exercise Name Shoulder Flexion Side bilateral Resistance 2# Abduction Standing Exercise Name Shoulder Abduction Side bilateral Resistance 2# Extension Standing Exercise Name Shoulder Extension Side bilateral Resistance Lv 2 Rows Standing Exercise Name Rows Side bilateral Resistance Lv 2 Manual Therapy Treatment Soft Tissue Mobilization Pecs Body Location B Pecs Mobilization Type Sustained Pressure,Trigger Point Release Body Position Semi-reclined Parascapulars Body Location B Parascapulars Mobilization Type Sustained Pressure,Trigger Point Release Body Position Semi-reclined Upper Trap Body Location B Upper Trap Mobilization Type Sustained Pressure,Trigger Point Release Body Position Semi-reclined PT-OP-T Assessment and Plan Start: 11/11/22 17:59 Freq: Status: Active Protocol: Document 11/19/22 16:00 DCW (Rec: 11/19/22 16:44 DCW [id number]) Physical Therapy Assessment Impairments Impairments Activity Tolerance,Functional Activities,Functional Mobility ,Pain,Posture,ROM,Soft Tissue Mobility,Strength,Tone Goals Three Impairment Pt experiencing worsening forward head/rounded shoulder posture Traffic Observer Goal (LTG) Pt to demonstrate improved cervical flexion and scapular retraction strength by presenting with a neutral cervical spine, eliminating current forward head/rounded shoulders posture LTG Duration 02/09/23 Two Impairment Pt unable to sleep through the night due to severe pain Fdc Goal (LTG) Pt to report reduction in average pain from an 8-9/10 to 5/10 in order to improve ability to sleep throughout a full night. LTG Duration 02/09/23 One Impairment Pt does not have an appropriate home exercise program Short Term Goal (STG) Pt to be independent and compliant with an appropriate HEP STG Duration 12/26/22 Assessment Summary Assessment Pt noted a sharp pain initially with his T-band exercises, but it went away quickly, and pt tolerated the rest of his exercise without complaint. Was a little more high-tone and was even displaying some protective spasming during STM, but was able to relax some. Physical Therapy Plan Frequency and Duration Frequency of Treatment 1-2x/week Plan of Care Start Date 11/11/22 Plan of Care End Date 02/09/23 Therapeutic Interventions Therapeutic Interventions Home Exercise Program,Joint Mobilizations,Manual Therapy, Neuromuscular Re-education, Patient/Caregiver Education, Self-Care/Home Management,Soft Tissue Mobilization, Therapeutic Activities, Therapeutic Exercises Modalities Cold Pack/Ice Massage,Hot Packs,Ultrasound Next Visit Focus/Plan Next Note Type Treatment Note Next Visit Plan Gentle STM, strengthening as tolerated
--- NOTE | 2022-11-24 16:44 | PT.OTN ---
Current Diagnoses Obesity, unspecified (11/24/22) Chronic pain syndrome (11/24/22) Spinal stenosis, cervical region (11/24/22) Physical Therapy Treatment Note PT-OP-A Visit Information Start: 11/11/22 17:59 Freq: Status: Active Protocol: Document 11/24/22 16:02 DCW (Rec: 11/24/22 16:44 DCW [id number]) Out-Patient Physical Therapy Visit Information Visit Information Visit Type Treatment Note Visit Start Time 16:02 Visit Stop Time 16:45 Total Visit Minutes 43 Visit Number 4 Number of TIE MILL OPERATOR Visits 0 Evaluation Information Evaluation Date 11/11/22 PT-OP-B Current Condition Start: 11/11/22 17:59 Freq: Status: Active Protocol: Document 11/11/22 16:45 DCW (Rec: 11/12/22 17:57 DCW [id number]) Current Condition History of Current Condition Onset Date Since at least 2009 Current Complaints Severe cervical and shoulder pain, immobility, worsening posture History of Current Condition Pt is a 52 year old male presenting with a 13+ year history of severe cervical pain, stiffness, shoulder pain , worsening posture, and general weakness. 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 Reports he is not a surgical candidate due to location of the bulges. Reports he has had a harder and harder time keeping his neck up straight. Reports pain is typically fairly consistently an 8-9/10, but will get breakthrough pain that is very severe and completely debilitating. Only thing at all pt reports to have found help with the pain is drugs. Gets small amounts of relief with ice packs. Pain limits his ability to lie on his back or right side, is only comfortable lying on his left side with good cervical support. Prior Treatments and Tests Pt notes he has attempted PT multiple times in the past. Treatment Goals Patient/Caregiver Goals Pt's goal is to work with therapy enough to get approval for a new MRI, but would love to get decreased tone in cervical spine, as well as improve forward head/rounded shoulder posture. PT-OP-C Subjective Start: 11/11/22 17:59 Freq: Status: Active Protocol: Document 11/24/22 16:02 DCW (Rec: 11/24/22 16:44 DCW [id number]) OP-PT Subjective Patient Comments Patient Comments Pt notes a little more tender , I don't know if is just that I'm moving it more, or what. PT-OP-F Manual Assessment Start: 11/11/22 17:59 Freq: Status: Active Protocol: Document 11/11/22 16:45 DCW (Rec: 11/12/22 17:36 DCW [id number]) Manual Assessments Soft Tissue Assessment Soft Tissue Mobility Assessment Tenderness to Palpation: 4/4: Palpation not allowed bilateral suboccipitals, upper traps, levator scap. Tenderness to palpation 3/4: Wincing and withdraw bilateral rhomboids, parascapulars PT-OP-J Posture/Palpation/Skin Start: 11/11/22 17:59 Freq: Status: Active Protocol: Document 11/11/22 16:45 DCW (Rec: 11/12/22 17:36 DCW [id number]) Posture Evaluation Position Sitting Evaluation View Lateral Head/C-Spine Posture Forward Head T-Spine Posture Increased Kyphosis Shoulder Posture (L) Rounded,(R) Rounded PT-OP-K Range of Motion Start: 11/11/22 17:59 Freq: Status: Active Protocol: Document 11/11/22 16:45 DCW (Rec: 11/12/22 17:36 DCW [id number]) Cervical Spine Range of Motion Cervical Spine Active Degrees Testing Position Sitting Flexion 30 Extension 15 Rotation Left 23 Rotation Right 30 Lateral Flexion Left 18 Lateral Flexion Right 15 ROM Limitations Soft Tissue Tightness,Muscle Weakness,Muscle Tone,Pain Shoulder Goniometric Range of Motion Shoulder Right Active Shoulder ROM WFL No Testing Position Sitting Flexion 100 Abduction 110 Left Active Shoulder ROM WFL No Testing Position Sitting Flexion 90 Abduction 115 PT-OP-L Special Tests Start: 11/11/22 17:59 Freq: Status: Active Protocol: Document 11/11/22 16:45 DCW (Rec: 11/12/22 17:36 DCW [id number]) Special Tests Cervical Spine Special Tests Traction Test Results Positive for cervical pain Passive Neck Flexion Test Results Positive for cervical pain PT-OP-M Strength Start: 11/11/22 17:59 Freq: Status: Active Protocol: Document 11/11/22 16:45 DCW (Rec: 11/12/22 17:36 DCW [id number]) Shoulder Strength Shoulder Manual Muscle Testing Right Flexion 3- Fair- Abduction (C5) 3- Fair- External Rotation 3+ Fair+ Internal Rotation 3+ Fair+ Left Flexion 3- Fair- Abduction (C5) 3- Fair- External Rotation 3+ Fair+ Internal Rotation 3+ Fair+ PT-OP-Q Treatments Start: 11/11/22 17:59 Freq: Status: Active Protocol: Document 11/24/22 16:02 DCW (Rec: 11/24/22 16:44 DC [id number]) Therapeutic Exercises Standing Exercises Pallof Press Standing Exercise Name Pallof Press Side bilateral Resistance Lv 2 IR Standing Exercise Name Shoulder IR/ER Side bilateral Resistance Lv 2 Flexion Standing Exercise Name Shoulder Flexion Side bilateral Resistance 2# Abduction Standing Exercise Name Shoulder Abduction Side bilateral Resistance 2# Extension Standing Exercise Name Shoulder Extension Side bilateral Resistance Lv 2 Rows Standing Exercise Name Rows Side bilateral Resistance Lv 2 Other Exercises Resisted Ambulation Other Exercise Name Resisted UE side-stepping Resistance Yellow Manual Therapy Treatment Soft Tissue Mobilization Pecs Body Location B Pecs Mobilization Type Sustained Pressure,Trigger Point Release Body Position Semi-reclined Parascapulars Body Location B Parascapulars Mobilization Type Sustained Pressure,Trigger Point Release Body Position Semi-reclined Upper Trap Body Location B Upper Trap Mobilization Type Sustained Pressure,Trigger Point Release Body Position Semi-reclined PT-OP-T Assessment and Plan Start: 11/11/22 17:59 Freq: Status: Active Protocol: Document 11/24/22 16:02 DCW (Rec: 11/24/22 16:44 [facility] [id number]) Physical Therapy Assessment Impairments Impairments Activity Tolerance,Functional Activities,Functional Mobility ,Pain,Posture,ROM,Soft Tissue Mobility,Strength,Tone Goals Three Impairment Pt experiencing worsening forward head/rounded shoulder posture Mcfp Goal (LTG) Pt to demonstrate improved cervical flexion and scapular retraction strength by presenting with a neutral cervical spine, eliminating current forward head/rounded shoulders posture LTG Duration 02/09/23 Two Impairment Pt unable to sleep through the night due to severe pain Mcfp Goal (LTG) Pt to report reduction in average pain from an 8-9/10 to 5/10 in order to improve ability to sleep throughout a full night. LTG Duration 02/09/23 One Impairment Pt does not have an appropriate home exercise program Short Term Goal (STG) Pt to be independent and compliant with an appropriate HEP STG Duration 12/26/22 Assessment Summary Assessment Pt tolerated treatment better today, no wincing or noticeable pain response with STM, improved quality of TherEx, will hopefully begin to notice a decrease in symptoms and better controlled pain with daily activity. Physical Therapy Plan Frequency and Duration Frequency of Treatment 1-2x/week Plan of Care Start Date 11/11/22 Plan of Care End Date 02/09/23 Therapeutic Interventions Therapeutic Interventions Home Exercise Program,Joint Mobilizations,Manual Therapy, Neuromuscular Re-education, Patient/Caregiver Education, Self-Care/Home Management,Soft Tissue Mobilization, Therapeutic Activities, Therapeutic Exercises Modalities Cold Pack/Ice Massage,Hot Packs,Ultrasound Next Visit Focus/Plan Next Note Type Treatment Note Next Visit Plan Gentle STM, strengthening as tolerated
--- NOTE | 2022-12-03 16:44 | PT.OTN ---
Current Diagnoses Obesity, unspecified (12/03/22) Chronic pain syndrome (12/03/22) Spinal stenosis, cervical region (12/03/22) Physical Therapy Treatment Note PT-OP-A Visit Information Start: 11/11/22 17:59 Freq: Status: Active Protocol: Document 12/03/22 16:00 DCW (Rec: 12/03/22 16:44 DCW [id number]) Out-Patient Physical Therapy Visit Information Visit Information Visit Type Treatment Note Visit Start Time 16:00 Visit Stop Time 16:45 Total Visit Minutes 45 Visit Number 6 Number of KNOCK UP ASSEMBLER Visits 0 Evaluation Information Evaluation Date 11/11/22 PT-OP-B Current Condition Start: 11/11/22 17:59 Freq: Status: Active Protocol: Document 11/11/22 16:45 DCW (Rec: 11/12/22 17:57 DCW [id number]) Current Condition History of Current Condition Onset Date Since at least 2009 Current Complaints Severe cervical and shoulder pain, immobility, worsening posture History of Current Condition Pt is a 52 year old male presenting with a 13+ year history of severe cervical pain, stiffness, shoulder pain , worsening posture, and general weakness. 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 Reports he is not a surgical candidate due to location of the bulges. Reports he has had a harder and harder time keeping his neck up straight. Reports pain is typically fairly consistently an 8-9/10, but will get breakthrough pain that is very severe and completely debilitating. Only thing at all pt reports to have found help with the pain is drugs. Gets small amounts of relief with ice packs. Pain limits his ability to lie on his back or right side, is only comfortable lying on his left side with good cervical support. Prior Treatments and Tests Pt notes he has attempted PT multiple times in the past. Treatment Goals Patient/Caregiver Goals Pt's goal is to work with therapy enough to get approval for a new MRI, but would love to get decreased tone in cervical spine, as well as improve forward head/rounded shoulder posture. PT-OP-C Subjective Start: 11/11/22 17:59 Freq: Status: Active Protocol: Document 12/03/22 16:00 DCW (Rec: 12/03/22 16:44 DCW [id number]) OP-PT Subjective Patient Comments Patient Comments Pt admits he is in the middle of a flare-up, feels like it really shuts me down. PT-OP-F Manual Assessment Start: 11/11/22 17:59 Freq: Status: Active Protocol: Document 11/11/22 16:45 DCW (Rec: 11/12/22 17:36 DCW [id number]) Manual Assessments Soft Tissue Assessment Soft Tissue Mobility Assessment Tenderness to Palpation: 4/4: Palpation not allowed bilateral suboccipitals, upper traps, levator scap. Tenderness to palpation 3/4: Wincing and withdraw bilateral rhomboids, parascapulars PT-OP-J Posture/Palpation/Skin Start: 11/11/22 17:59 Freq: Status: Active Protocol: Document 11/11/22 16:45 DCW (Rec: 11/12/22 17:36 DCW [id number]) Posture Evaluation Position Sitting Evaluation View Lateral Head/C-Spine Posture Forward Head T-Spine Posture Increased Kyphosis Shoulder Posture (L) Rounded,(R) Rounded PT-OP-K Range of Motion Start: 11/11/22 17:59 Freq: Status: Active Protocol: Document 11/11/22 16:45 DCW (Rec: 11/12/22 17:36 DCW [id number]) Cervical Spine Range of Motion Cervical Spine Active Degrees Testing Position Sitting Flexion 30 Extension 15 Rotation Left 23 Rotation Right 30 Lateral Flexion Left 18 Lateral Flexion Right 15 ROM Limitations Soft Tissue Tightness,Muscle Weakness,Muscle Tone,Pain Shoulder Goniometric Range of Motion Shoulder Right Active Shoulder ROM WFL No Testing Position Sitting Flexion 100 Abduction 110 Left Active Shoulder ROM WFL No Testing Position Sitting Flexion 90 Abduction 115 PT-OP-L Special Tests Start: 11/11/22 17:59 Freq: Status: Active Protocol: Document 11/11/22 16:45 DCW (Rec: 11/12/22 17:36 DCW [id number]) Special Tests Cervical Spine Special Tests Traction Test Results Positive for cervical pain Passive Neck Flexion Test Results Positive for cervical pain PT-OP-M Strength Start: 11/11/22 17:59 Freq: Status: Active Protocol: Document 11/11/22 16:45 DCW (Rec: 11/12/22 17:36 DCW [id number]) Shoulder Strength Shoulder Manual Muscle Testing Right Flexion 3- Fair- Abduction (C5) 3- Fair- External Rotation 3+ Fair+ Internal Rotation 3+ Fair+ Left Flexion 3- Fair- Abduction (C5) 3- Fair- External Rotation 3+ Fair+ Internal Rotation 3+ Fair+ PT-OP-Q Treatments Start: 11/11/22 17:59 Freq: Status: Active Protocol: Document 12/03/22 16:00 DCW (Rec: 12/03/22 16:44 DCW [id number]) Cardio Equipment Upper Body Ergometer (UBE) Duration (Minutes) 5 Seat Position 13 Height 3.5 Other 2.5' fwd, 2.5' bkwd Therapeutic Exercises Standing Exercises Pallof Press Standing Exercise Name Pallof Press Side bilateral Resistance Lv 3 Flexion Standing Exercise Name Shoulder Flexion Side bilateral Resistance 3# Abduction Standing Exercise Name Shoulder Abduction Side bilateral Resistance 3# Extension Standing Exercise Name Shoulder Extension Side bilateral Resistance Lv 3 Rows Standing Exercise Name Rows Side bilateral Resistance Lv 2 Other Exercises Wall push-ups Other Exercise Name Wall push-ups Reps/Minutes x10 each Comments <> and w hand positions Resisted Ambulation Other Exercise Name Resisted UE side-stepping Resistance Yellow Manual Therapy Treatment Soft Tissue Mobilization Pecs Body Location B Pecs Mobilization Type Sustained Pressure,Trigger Point Release Body Position Semi-reclined Parascapulars Body Location B Parascapulars Mobilization Type Sustained Pressure,Trigger Point Release Body Position Semi-reclined Upper Trap Body Location B Upper Trap Mobilization Type Sustained Pressure,Trigger Point Release Body Position Semi-reclined PT-OP-T Assessment and Plan Start: 11/11/22 17:59 Freq: Status: Active Protocol: Document 12/03/22 16:00 DCW (Rec: 12/03/22 16:44 [facility] [id number]) Physical Therapy Assessment Impairments Impairments Activity Tolerance,Functional Activities,Functional Mobility ,Pain,Posture,ROM,Soft Tissue Mobility,Strength,Tone Goals Three Impairment Pt experiencing worsening forward head/rounded shoulder posture Parking Lot Signaler Goal (LTG) Pt to demonstrate improved cervical flexion and scapular retraction strength by presenting with a neutral cervical spine, eliminating current forward head/rounded shoulders posture LTG Duration 02/09/23 Two Impairment Pt unable to sleep through the night due to severe pain Usp Goal (LTG) Pt to report reduction in average pain from an 8-9/10 to 5/10 in order to improve ability to sleep throughout a full night. LTG Duration 02/09/23 One Impairment Pt does not have an appropriate home exercise program Short Term Goal (STG) Pt to be independent and compliant with an appropriate HEP STG Duration 12/26/22 Assessment Summary Assessment Pt felt pretty good with the level of challenge given by the UBE, does note that despite his recent increases in pain, he doesn't feel like it is caused by his work in PT . Physical Therapy Plan Frequency and Duration Frequency of Treatment 1-2x/week Plan of Care Start Date 11/11/22 Plan of Care End Date 02/09/23 Therapeutic Interventions Therapeutic Interventions Home Exercise Program,Joint Mobilizations,Manual Therapy, Neuromuscular Re-education, Patient/Caregiver Education, Self-Care/Home Management,Soft Tissue Mobilization, Therapeutic Activities, Therapeutic Exercises Modalities Cold Pack/Ice Massage,Hot Packs,Ultrasound Next Visit Focus/Plan Next Note Type Treatment Note Next Visit Plan Gentle STM, strengthening as tolerated
--- NOTE | 2022-12-08 16:55 | PT.OTN ---
Current Diagnoses Obesity, unspecified (12/08/22) Chronic pain syndrome (12/08/22) Spinal stenosis, cervical region (12/08/22) Physical Therapy Treatment Note PT-OP-A Visit Information Start: 11/11/22 17:59 Freq: Status: Active Protocol: Document 12/08/22 16:01 NBM (Rec: 12/08/22 16:54 NBM [id number]) Out-Patient Physical Therapy Visit Information Visit Information Visit Type Treatment Note Visit Start Time 16:03 Visit Stop Time 16:43 Total Visit Minutes 40 Visit Number 7 Number of DUMP MOTORMAN Visits 1 PT-OP-B Current Condition Start: 11/11/22 17:59 Freq: Status: Active Protocol: Document 11/11/22 16:45 DCW (Rec: 11/12/22 17:57 DCW [id number]) Current Condition History of Current Condition Onset Date Since at least 2009 Current Complaints Severe cervical and shoulder pain, immobility, worsening posture History of Current Condition Pt is a 52 year old male presenting with a 13+ year history of severe cervical pain, stiffness, shoulder pain , worsening posture, and general weakness. 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 Reports he is not a surgical candidate due to location of the bulges. Reports he has had a harder and harder time keeping his neck up straight. Reports pain is typically fairly consistently an 8-9/10, but will get breakthrough pain that is very severe and completely debilitating. Only thing at all pt reports to have found help with the pain is drugs. Gets small amounts of relief with ice packs. Pain limits his ability to lie on his back or right side, is only comfortable lying on his left side with good cervical support. Prior Treatments and Tests Pt notes he has attempted PT multiple times in the past. Treatment Goals Patient/Caregiver Goals Pt's goal is to work with therapy enough to get approval for a new MRI, but would love to get decreased tone in cervical spine, as well as improve forward head/rounded shoulder posture. PT-OP-C Subjective Start: 11/11/22 17:59 Freq: Status: Active Protocol: Document 12/08/22 16:01 NBM (Rec: 12/08/22 16:54 NB [id number]) OP-PT Subjective Patient Comments Patient Comments Pt states he still feels like he's in a flare-up due to pain patch spacing - he starts next one tomorrow and wonders if he should coordinate PT with start days - I can do so much more. Pt states he did ex Sat and Sun but not [place] or yesterday. PT-OP-F Manual Assessment Start: 11/11/22 17:59 Freq: Status: Active Protocol: Document 11/11/22 16:45 DCW (Rec: 11/12/22 17:36 DCW [id number]) Manual Assessments Soft Tissue Assessment Soft Tissue Mobility Assessment Tenderness to Palpation: 44: Palpation not allowed bilateral suboccipitals, upper traps, levator scap. Tenderness to palpation 3/4: Wincing and withdraw bilateral rhomboids, parascapulars PT-OP-J Posture/Palpation/Skin Start: 11/11/22 17:59 Freq: Status: Active Protocol: Document 11/11/22 16:45 DCW (Rec: 11/12/22 17:36 DCW [id number]) Posture Evaluation Position Sitting Evaluation View Lateral Head/C-Spine Posture Forward Head T-Spine Posture Increased Kyphosis Shoulder Posture (L) Rounded,(R) Rounded PT-OP-K Range of Motion Start: 11/11/22 17:59 Freq: Status: Active Protocol: Document 11/11/22 16:45 DCW (Rec: 11/12/22 17:36 DCW [id number]) Cervical Spine Range of Motion Cervical Spine Active Degrees Testing Position Sitting Flexion 30 Extension 15 Rotation Left 23 Rotation Right 30 Lateral Flexion Left 18 Lateral Flexion Right 15 ROM Limitations Soft Tissue Tightness,Muscle Weakness,Muscle Tone,Pain Shoulder Goniometric Range of Motion Shoulder Right Active Shoulder ROM WFL No Testing Position Sitting Flexion 100 Abduction 110 Left Active Shoulder ROM WFL No Testing Position Sitting Flexion 90 Abduction 115 PT-OP-L Special Tests Start: 11/11/22 17:59 Freq: Status: Active Protocol: Document 11/11/22 16:45 DCW (Rec: 11/12/22 17:36 DCW [id number]) Special Tests Cervical Spine Special Tests Traction Test Results Positive for cervical pain Passive Neck Flexion Test Results Positive for cervical pain PT-OP-M Strength Start: 11/11/22 17:59 Freq: Status: Active Protocol: Document 11/11/22 16:45 DCW (Rec: 11/12/22 17:36 DCW [id number]) Shoulder Strength Shoulder Manual Muscle Testing Right Flexion 3- Fair- Abduction (C5) 3- Fair- External Rotation 3+ Fair+ Internal Rotation 3+ Fair+ Left Flexion 3- Fair- Abduction (C5) 3- Fair- External Rotation 3+ Fair+ Internal Rotation 3+ Fair+ PT-OP-Q Treatments Start: 11/11/22 17:59 Freq: Status: Active Protocol: Document 12/08/22 16:01 [facility] (Rec: 12/08/22 16:54 [facility] [id number]) Therapeutic Exercises Standing Exercises shoulder shrugs Standing Exercise Name fwd/bwd Pallof Press Standing Exercise Name Pallof Press Side bilateral Resistance Lv 3 IR Standing Exercise Name Shoulder IR/ER Side bilateral Resistance Lv 2 Extension Standing Exercise Name Shoulder Extension Side bilateral Resistance Lv 3 Rows Standing Exercise Name Rows Side bilateral Resistance Lv 2 Other Exercises Wall push-ups Other Exercise Name Wall push-ups Reps/Minutes x10 each Comments <> and w hand positions, cues for chin tuck Resisted Ambulation Other Exercise Name Resisted UE side-stepping Resistance Yellow Manual Therapy Treatment Soft Tissue Mobilization Upper Trap Body Location B Upper Trap Mobilization Type Sustained Pressure,Trigger Point Release Intensity/Depth Moderate Body Position Semi-reclined Self-Care/Home Management Treatment Education Patient Education Home Exercise Program,Pain Management,Posture Other Education Discussed role of chin tucks in improving forward head posture by strengthening cervical extensors and reducing pressure on cervical spine. PT-OP-T Assessment and Plan Start: 11/11/22 17:59 Freq: Status: Active Protocol: Document 12/08/22 16:01 [facility] (Rec: 12/08/22 16:54 [facility] [id number]) Physical Therapy Assessment Impairments Impairments Activity Tolerance,Functional Activities,Functional Mobility ,Pain,Posture,ROM,Soft Tissue Mobility,Strength,Tone Goals Three Impairment Pt experiencing worsening forward head/rounded shoulder posture Fire Protection Equipment Technician Goal (LTG) Pt to demonstrate improved cervical flexion and scapular retraction strength by presenting with a neutral cervical spine, eliminating current forward head/rounded shoulders posture LTG Duration 02/09/23 Two Impairment Pt unable to sleep through the night due to severe pain Fire Protection Equipment Technician Goal (LTG) Pt to report reduction in average pain from an 8-9/10 to 5/10 in order to improve ability to sleep throughout a full night. LTG Duration 02/09/23 One Impairment Pt does not have an appropriate home exercise program Short Term Goal (STG) Pt to be independent and compliant with an appropriate HEP STG Duration 12/26/22 Assessment Summary Assessment One visit scheduled 12/10. Bandar's treatment was pain- limited this session - pt due for new pain patch tomorrow and anticipates tolerating more activity next session. Shoulder flexion and abduction ex's not attempted today due to pt's complaint of increasing pain. Pt requires consistent cues for chin tuck and occasional cues for scapular setting prior to ex. R Upper trapezius spasm occurs with R shoulder IR. Discussed with pt the role of chin tucks in improving forward head posture by strengthening cervical extensors and reducing pressure on cervical spine. Physical Therapy Plan Frequency and Duration Frequency of Treatment 1-2x/week Plan of Care Start Date 11/11/22 Plan of Care End Date 02/09/23 Therapeutic Interventions Therapeutic Interventions Home Exercise Program,Joint Mobilizations,Manual Therapy, Neuromuscular Re-education, Patient/Caregiver Education, Self-Care/Home Management,Soft Tissue Mobilization, Therapeutic Activities, Therapeutic Exercises Modalities Cold Pack/Ice Massage,Hot Packs,Ultrasound Next Visit Focus/Plan Next Note Type Treatment Note Next Visit Plan Gentle STM, strengthening as tolerated
--- NOTE | 2022-12-10 16:45 | PT.OTN ---
Current Diagnoses Obesity, unspecified (12/10/22) Chronic pain syndrome (12/10/22) Spinal stenosis, cervical region (12/10/22) Physical Therapy Treatment Note PT-OP-A Visit Information Start: 11/11/22 17:59 Freq: Status: Active Protocol: Document 12/10/22 16:02 DCW (Rec: 12/10/22 16:45 DCW [id number]) Out-Patient Physical Therapy Visit Information Visit Information Visit Type Treatment Note Visit Start Time 16:02 Visit Stop Time 16:45 Total Visit Minutes 43 Visit Number 8 Number of BRIM FLEXER Visits 0 Evaluation Information Evaluation Date 11/11/22 PT-OP-B Current Condition Start: 11/11/22 17:59 Freq: Status: Active Protocol: Document 11/11/22 16:45 DCW (Rec: 11/12/22 17:57 DCW [id number]) Current Condition History of Current Condition Onset Date Since at least 2009 Current Complaints Severe cervical and shoulder pain, immobility, worsening posture History of Current Condition Pt is a 52 year old male presenting with a 13+ year history of severe cervical pain, stiffness, shoulder pain , worsening posture, and general weakness. 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 Reports he is not a surgical candidate due to location of the bulges. Reports he has had a harder and harder time keeping his neck up straight. Reports pain is typically fairly consistently an 8-9/10, but will get breakthrough pain that is very severe and completely debilitating. Only thing at all pt reports to have found help with the pain is drugs. Gets small amounts of relief with ice packs. Pain limits his ability to lie on his back or right side, is only comfortable lying on his left side with good cervical support. Prior Treatments and Tests Pt notes he has attempted PT multiple times in the past. Treatment Goals Patient/Caregiver Goals Pt's goal is to work with therapy enough to get approval for a new MRI, but would love to get decreased tone in cervical spine, as well as improve forward head/rounded shoulder posture. PT-OP-C Subjective Start: 11/11/22 17:59 Freq: Status: Active Protocol: Document 12/10/22 16:02 DCW (Rec: 12/10/22 16:45 DCW [id number]) OP-PT Subjective Patient Comments Patient Comments The pain is up there, but that's just kind of how it is, it's nothing abnormal. PT-OP-F Manual Assessment Start: 11/11/22 17:59 Freq: Status: Active Protocol: Document 11/11/22 16:45 DCW (Rec: 11/12/22 17:36 DCW [id number]) Manual Assessments Soft Tissue Assessment Soft Tissue Mobility Assessment Tenderness to Palpation: 4/4: Palpation not allowed bilateral suboccipitals, upper traps, levator scap. Tenderness to palpation 3/4: Wincing and withdraw bilateral rhomboids, parascapulars PT-OP-J Posture/Palpation/Skin Start: 11/11/22 17:59 Freq: Status: Active Protocol: Document 11/11/22 16:45 DCW (Rec: 11/12/22 17:36 DCW [id number]) Posture Evaluation Position Sitting Evaluation View Lateral Head/C-Spine Posture Forward Head T-Spine Posture Increased Kyphosis Shoulder Posture (L) Rounded,(R) Rounded PT-OP-K Range of Motion Start: 11/11/22 17:59 Freq: Status: Active Protocol: Document 11/11/22 16:45 DCW (Rec: 11/12/22 17:36 DCW [id number]) Cervical Spine Range of Motion Cervical Spine Active Degrees Testing Position Sitting Flexion 30 Extension 15 Rotation Left 23 Rotation Right 30 Lateral Flexion Left 18 Lateral Flexion Right 15 ROM Limitations Soft Tissue Tightness,Muscle Weakness,Muscle Tone,Pain Shoulder Goniometric Range of Motion Shoulder Right Active Shoulder ROM WFL No Testing Position Sitting Flexion 100 Abduction 110 Left Active Shoulder ROM WFL No Testing Position Sitting Flexion 90 Abduction 115 PT-OP-L Special Tests Start: 11/11/22 17:59 Freq: Status: Active Protocol: Document 11/11/22 16:45 DCW (Rec: 11/12/22 17:36 DCW [id number]) Special Tests Cervical Spine Special Tests Traction Test Results Positive for cervical pain Passive Neck Flexion Test Results Positive for cervical pain PT-OP-M Strength Start: 11/11/22 17:59 Freq: Status: Active Protocol: Document 11/11/22 16:45 DCW (Rec: 11/12/22 17:36 DCW [id number]) Shoulder Strength Shoulder Manual Muscle Testing Right Flexion 3- Fair- Abduction (C5) 3- Fair- External Rotation 3+ Fair+ Internal Rotation 3+ Fair+ Left Flexion 3- Fair- Abduction (C5) 3- Fair- External Rotation 3+ Fair+ Internal Rotation 3+ Fair+ PT-OP-Q Treatments Start: 11/11/22 17:59 Freq: Status: Active Protocol: Document 12/10/22 16:02 DCW (Rec: 12/10/22 16:45 DCW [id number]) Cardio Equipment Upper Body Ergometer (UBE) Duration (Minutes) 5 Seat Position 14 Height 3.5 Other 2.5' fwd, 2.5' bkwd Therapeutic Exercises Standing Exercises Pallof Press Standing Exercise Name Pallof Press Side bilateral Resistance Green LF Flexion Standing Exercise Name Shoulder Flexion Side bilateral Resistance 3# Abduction Standing Exercise Name Shoulder Abduction Side bilateral Resistance 3# Extension Standing Exercise Name Shoulder Extension Side bilateral Resistance Green LF Rows Standing Exercise Name Rows Side bilateral Resistance Green LF Other Exercises Wall Slides Other Exercise Name UE Wall slides Side bilateral Resistance Yellow Wall push-ups Other Exercise Name Wall push-ups Reps/Minutes x10 each Comments <> and w hand positions, cues for chin tuck Resisted Ambulation Other Exercise Name Resisted UE side-stepping Resistance Yellow Manual Therapy Treatment Soft Tissue Mobilization Pecs Body Location B Pecs Mobilization Type Sustained Pressure,Trigger Point Release Body Position Semi-reclined Parascapulars Body Location B Parascapulars Mobilization Type Sustained Pressure,Trigger Point Release Body Position Semi-reclined Upper Trap Body Location B Upper Trap Mobilization Type Sustained Pressure,Trigger Point Release Body Position Semi-reclined PT-OP-T Assessment and Plan Start: 11/11/22 17:59 Freq: Status: Active Protocol: Document 12/10/22 16:02 DCW (Rec: 12/10/22 16:45 [facility] [id number]) Physical Therapy Assessment Impairments Impairments Activity Tolerance,Functional Activities,Functional Mobility ,Pain,Posture,ROM,Soft Tissue Mobility,Strength,Tone Goals Three Impairment Pt experiencing worsening forward head/rounded shoulder posture Long-Term Goal (LTG) Pt to demonstrate improved cervical flexion and scapular retraction strength by presenting with a neutral cervical spine, eliminating current forward head/rounded shoulders posture LTG Duration 02/09/23 Two Impairment Pt unable to sleep through the night due to severe pain Sharepoint Administrator Goal (LTG) Pt to report reduction in average pain from an 8-9/10 to 5/10 in order to improve ability to sleep throughout a full night. LTG Duration 02/09/23 One Impairment Pt does not have an appropriate home exercise program Short Term Goal (STG) Pt to be independent and compliant with an appropriate HEP STG Duration 12/26/22 Assessment Summary Assessment Pt has made minimal overall progress, but was feeling slightly better with his mobility and participation in PT today with his pain level. Physical Therapy Plan Frequency and Duration Frequency of Treatment 1-2x/week Plan of Care Start Date 11/11/22 Plan of Care End Date 02/09/23 Therapeutic Interventions Therapeutic Interventions Home Exercise Program,Joint Mobilizations,Manual Therapy, Neuromuscular Re-education, Patient/Caregiver Education, Self-Care/Home Management,Soft Tissue Mobilization, Therapeutic Activities, Therapeutic Exercises Modalities Cold Pack/Ice Massage,Hot Packs,Ultrasound Next Visit Focus/Plan Next Note Type Treatment Note Next Visit Plan Gentle STM, strengthening as tolerated
--- NOTE | 2022-12-14 14:31 | PT.OTN ---
Current Diagnoses Obesity, unspecified (12/14/22) Chronic pain syndrome (12/14/22) Spinal stenosis, cervical region (12/14/22) Physical Therapy Treatment Note PT-OP-A Visit Information Start: 11/11/22 17:59 Freq: Status: Active Protocol: Document 12/14/22 13:45 DCW (Rec: 12/14/22 14:31 DCW [id number]) Out-Patient Physical Therapy Visit Information Visit Information Visit Type Treatment Note Visit Start Time 13:45 Visit Stop Time 14:30 Total Visit Minutes 45 Visit Number 9 Number of MACHINE FORMER Visits 0 Evaluation Information Evaluation Date 11/11/22 PT-OP-B Current Condition Start: 11/11/22 17:59 Freq: Status: Active Protocol: Document 11/11/22 16:45 DCW (Rec: 11/12/22 17:57 DCW [id number]) Current Condition History of Current Condition Onset Date Since at least 2009 Current Complaints Severe cervical and shoulder pain, immobility, worsening posture History of Current Condition Pt is a 52 year old male presenting with a 13+ year history of severe cervical pain, stiffness, shoulder pain , worsening posture, and general weakness. 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 Reports he is not a surgical candidate due to location of the bulges. Reports he has had a harder and harder time keeping his neck up straight. Reports pain is typically fairly consistently an 8-9/10, but will get breakthrough pain that is very severe and completely debilitating. Only thing at all pt reports to have found help with the pain is drugs. Gets small amounts of relief with ice packs. Pain limits his ability to lie on his back or right side, is only comfortable lying on his left side with good cervical support. Prior Treatments and Tests Pt notes he has attempted PT multiple times in the past. Treatment Goals Patient/Caregiver Goals Pt's goal is to work with therapy enough to get approval for a new MRI, but would love to get decreased tone in cervical spine, as well as improve forward head/rounded shoulder posture. PT-OP-C Subjective Start: 11/11/22 17:59 Freq: Status: Active Protocol: Document 12/14/22 13:45 DCW (Rec: 12/14/22 14:31 DCW [id number]) OP-PT Subjective Patient Comments Patient Comments It's hurting right now, but it comes and goes. PT-OP-F Manual Assessment Start: 11/11/22 17:59 Freq: Status: Active Protocol: Document 11/11/22 16:45 DCW (Rec: 11/12/22 17:36 DCW [id number]) Manual Assessments Soft Tissue Assessment Soft Tissue Mobility Assessment Tenderness to Palpation: 4/4: Palpation not allowed bilateral suboccipitals, upper traps, levator scap. Tenderness to palpation 3/4: Wincing and withdraw bilateral rhomboids, parascapulars PT-OP-J Posture/Palpation/Skin Start: 11/11/22 17:59 Freq: Status: Active Protocol: Document 11/11/22 16:45 DCW (Rec: 11/12/22 17:36 DCW [id number]) Posture Evaluation Position Sitting Evaluation View Lateral Head/C-Spine Posture Forward Head T-Spine Posture Increased Kyphosis Shoulder Posture (L) Rounded,(R) Rounded PT-OP-K Range of Motion Start: 11/11/22 17:59 Freq: Status: Active Protocol: Document 11/11/22 16:45 DCW (Rec: 11/12/22 17:36 DCW [id number]) Cervical Spine Range of Motion Cervical Spine Active Degrees Testing Position Sitting Flexion 30 Extension 15 Rotation Left 23 Rotation Right 30 Lateral Flexion Left 18 Lateral Flexion Right 15 ROM Limitations Soft Tissue Tightness,Muscle Weakness,Muscle Tone,Pain Shoulder Goniometric Range of Motion Shoulder Right Active Shoulder ROM WFL No Testing Position Sitting Flexion 100 Abduction 110 Left Active Shoulder ROM WFL No Testing Position Sitting Flexion 90 Abduction 115 PT-OP-L Special Tests Start: 11/11/22 17:59 Freq: Status: Active Protocol: Document 11/11/22 16:45 DCW (Rec: 11/12/22 17:36 DCW [id number]) Special Tests Cervical Spine Special Tests Traction Test Results Positive for cervical pain Passive Neck Flexion Test Results Positive for cervical pain PT-OP-M Strength Start: 11/11/22 17:59 Freq: Status: Active Protocol: Document 11/11/22 16:45 DCW (Rec: 11/12/22 17:36 DCW [id number]) Shoulder Strength Shoulder Manual Muscle Testing Right Flexion 3- Fair- Abduction (C5) 3- Fair- External Rotation 3+ Fair+ Internal Rotation 3+ Fair+ Left Flexion 3- Fair- Abduction (C5) 3- Fair- External Rotation 3+ Fair+ Internal Rotation 3+ Fair+ PT-OP-Q Treatments Start: 11/11/22 17:59 Freq: Status: Active Protocol: Document 12/14/22 13:45 DCW (Rec: 12/14/22 14:31 DCW [id number]) Cardio Equipment Upper Body Ergometer (UBE) Duration (Minutes) 6 Seat Position 14 Height 4 Other 2.5' fwd, 2.5' bkwd Therapeutic Exercises Supine Exercises press Supine Exercise Name press Side bilateral Resistance 5# AAROM Supine Exercise Name AAROM->AROM shoulder flexion / c PVC Side bilateral Resistance added 5# Comments Semi-recumbent Standing Exercises Pallof Press Standing Exercise Name Pallof Press Side bilateral Resistance Green LF Flexion Standing Exercise Name Shoulder Flexion Side bilateral Resistance 3# Abduction Standing Exercise Name Shoulder Abduction Side bilateral Resistance 3# Extension Standing Exercise Name Shoulder Extension Side bilateral Resistance Green LF Rows Standing Exercise Name Rows Side bilateral Resistance Green LF PT-OP-T Assessment and Plan Start: 11/11/22 17:59 Freq: Status: Active Protocol: Document 12/14/22 13:45 DCW (Rec: 12/14/22 14:31 DCW [id number]) Physical Therapy Assessment Impairments Impairments Activity Tolerance,Functional Activities,Functional Mobility ,Pain,Posture,ROM,Soft Tissue Mobility,Strength,Tone Goals Three Impairment Pt experiencing worsening forward head/rounded shoulder posture Vending Attendant Goal (LTG) Pt to demonstrate improved cervical flexion and scapular retraction strength by presenting with a neutral cervical spine, eliminating current forward head/rounded shoulders posture LTG Duration 02/09/23 Two Impairment Pt unable to sleep through the night due to severe pain Vending Attendant Goal (LTG) Pt to report reduction in average pain from an 8-9/10 to 5/10 in order to improve ability to sleep throughout a full night. LTG Duration 02/09/23 One Impairment Pt does not have an appropriate home exercise program Short Term Goal (STG) Pt to be independent and compliant with an appropriate HEP STG Duration 12/26/22 Assessment Summary Assessment Pt felt weaker today, struggled more with flexion and abduction bilaterally. Noticeably higher tone in left upper trap. Physical Therapy Plan Frequency and Duration Frequency of Treatment 1-2x/week Plan of Care Start Date 11/11/22 Plan of Care End Date 02/09/23 Therapeutic Interventions Therapeutic Interventions Home Exercise Program,Joint Mobilizations,Manual Therapy, Neuromuscular Re-education, Patient/Caregiver Education, Self-Care/Home Management,Soft Tissue Mobilization, Therapeutic Activities, Therapeutic Exercises Modalities Cold Pack/Ice Massage,Hot Packs,Ultrasound Next Visit Focus/Plan Next Note Type Treatment Note Next Visit Plan Gentle STM, strengthening as tolerated
--- NOTE | 2022-12-16 14:30 | PT.OTN ---
Current Diagnoses Obesity, unspecified (12/16/22) Chronic pain syndrome (12/16/22) Spinal stenosis, cervical region (12/16/22) Physical Therapy Treatment Note PT-OP-A Visit Information Start: 11/11/22 17:59 Freq: Status: Active Protocol: Document 12/16/22 13:50 DCW (Rec: 12/16/22 14:30 DCW [id number]) Out-Patient Physical Therapy Visit Information Visit Information Visit Type Discharge Summary Visit Start Time 13:50 Visit Stop Time 14:30 Total Visit Minutes 40 Visit Number 10 Number of GLASS BEVELLER Visits 0 Evaluation Information Evaluation Date 11/11/22 PT-OP-B Current Condition Start: 11/11/22 17:59 Freq: Status: Active Protocol: Document 11/11/22 16:45 DCW (Rec: 11/12/22 17:57 DCW [id number]) Current Condition History of Current Condition Onset Date Since at least 2009 Current Complaints Severe cervical and shoulder pain, immobility, worsening posture History of Current Condition Pt is a 52 year old male presenting with a 13+ year history of severe cervical pain, stiffness, shoulder pain , worsening posture, and general weakness. 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 Reports he is not a surgical candidate due to location of the bulges. Reports he has had a harder and harder time keeping his neck up straight. Reports pain is typically fairly consistently an 8-9/10, but will get breakthrough pain that is very severe and completely debilitating. Only thing at all pt reports to have found help with the pain is drugs. Gets small amounts of relief with ice packs. Pain limits his ability to lie on his back or right side, is only comfortable lying on his left side with good cervical support. Prior Treatments and Tests Pt notes he has attempted PT multiple times in the past. Treatment Goals Patient/Caregiver Goals Pt's goal is to work with therapy enough to get approval for a new MRI, but would love to get decreased tone in cervical spine, as well as improve forward head/rounded shoulder posture. PT-OP-C Subjective Start: 11/11/22 17:59 Freq: Status: Active Protocol: Document 12/16/22 13:50 DCW (Rec: 12/16/22 14:30 DCW [id number]) OP-PT Subjective Patient Comments Patient Comments Pt having difficulty with pain control, struggling to refill medications, just overall having a very hard time. PT-OP-F Manual Assessment Start: 11/11/22 17:59 Freq: Status: Active Protocol: Document 11/11/22 16:45 DCW (Rec: 11/12/22 17:36 DCW [id number]) Manual Assessments Soft Tissue Assessment Soft Tissue Mobility Assessment Tenderness to Palpation: 4/4: Palpation not allowed bilateral suboccipitals, upper traps, levator scap. Tenderness to palpation 3/4: Wincing and withdraw bilateral rhomboids, parascapulars PT-OP-J Posture/Palpation/Skin Start: 11/11/22 17:59 Freq: Status: Active Protocol: Document 11/11/22 16:45 DCW (Rec: 11/12/22 17:36 DCW [id number]) Posture Evaluation Position Sitting Evaluation View Lateral Head/C-Spine Posture Forward Head T-Spine Posture Increased Kyphosis Shoulder Posture (L) Rounded,(R) Rounded PT-OP-K Range of Motion Start: 11/11/22 17:59 Freq: Status: Active Protocol: Document 11/11/22 16:45 DCW (Rec: 11/12/22 17:36 DCW [id number]) Cervical Spine Range of Motion Cervical Spine Active Degrees Testing Position Sitting Flexion 30 Extension 15 Rotation Left 23 Rotation Right 30 Lateral Flexion Left 18 Lateral Flexion Right 15 ROM Limitations Soft Tissue Tightness,Muscle Weakness,Muscle Tone,Pain Shoulder Goniometric Range of Motion Shoulder Right Active Shoulder ROM WFL No Testing Position Sitting Flexion 100 Abduction 110 Left Active Shoulder ROM WFL No Testing Position Sitting Flexion 90 Abduction 115 PT-OP-L Special Tests Start: 11/11/22 17:59 Freq: Status: Active Protocol: Document 11/11/22 16:45 DCW (Rec: 11/12/22 17:36 DCW [id number]) Special Tests Cervical Spine Special Tests Traction Test Results Positive for cervical pain Passive Neck Flexion Test Results Positive for cervical pain PT-OP-M Strength Start: 11/11/22 17:59 Freq: Status: Active Protocol: Document 11/11/22 16:45 DCW (Rec: 11/12/22 17:36 DCW [id number]) Shoulder Strength Shoulder Manual Muscle Testing Right Flexion 3- Fair- Abduction (C5) 3- Fair- External Rotation 3+ Fair+ Internal Rotation 3+ Fair+ Left Flexion 3- Fair- Abduction (C5) 3- Fair- External Rotation 3+ Fair+ Internal Rotation 3+ Fair+ PT-OP-Q Treatments Start: 11/11/22 17:59 Freq: Status: Active Protocol: Document 12/16/22 13:50 DCW (Rec: 12/16/22 14:30 DCW [id number]) Cardio Equipment Upper Body Ergometer (UBE) Duration (Minutes) 6 Seat Position 14 Height 4 Other 3' fwd, 3' bkwd Gym Equipment Cable Column (Body Solid) Lat Pull Down Resistance 20# Therapeutic Exercises Standing Exercises Press Standing Exercise Name press Side bilateral Resistance 5# PVC Pallof Press Standing Exercise Name Pallof Press Side bilateral Resistance Green LF Flexion Standing Exercise Name Shoulder Flexion Side bilateral Resistance 5# PVC Abduction Standing Exercise Name Shoulder Abduction Side bilateral Resistance 3# Extension Standing Exercise Name Shoulder Extension Side bilateral Resistance Green LF Rows Standing Exercise Name Rows Side bilateral Resistance Green LF Manual Therapy Treatment Soft Tissue Mobilization Pecs Body Location B Pecs Mobilization Type Sustained Pressure,Trigger Point Release Body Position Semi-reclined Parascapulars Body Location B Parascapulars Mobilization Type Sustained Pressure,Trigger Point Release Body Position Semi-reclined Upper Trap Body Location B Upper Trap Mobilization Type Sustained Pressure,Trigger Point Release Body Position Semi-reclined PT-OP-T Assessment and Plan Start: 11/11/22 17:59 Freq: Status: Active Protocol: Document 12/16/22 13:50 DCW (Rec: 12/16/22 14:30 DCW [id number]) Physical Therapy Assessment Impairments Impairments Activity Tolerance,Functional Activities,Functional Mobility ,Pain,Posture,ROM,Soft Tissue Mobility,Strength,Tone Goals Three Impairment Pt experiencing worsening forward head/rounded shoulder posture Care Home Goal (LTG) Pt to demonstrate improved cervical flexion and scapular retraction strength by presenting with a neutral cervical spine, eliminating current forward head/rounded shoulders posture LTG Duration 02/09/23 Two Impairment Pt unable to sleep through the night due to severe pain Stage Settings Painter Goal (LTG) Pt to report reduction in average pain from an 8-9/10 to 5/10 in order to improve ability to sleep throughout a full night. LTG Duration 02/09/23 One Impairment Pt does not have an appropriate home exercise program Short Term Goal (STG) Pt to be independent and compliant with an appropriate HEP STG Duration 4/15/23 Progress Towards Goals Progress Towards Goals Slow Progress due to Medical Issues Assessment Summary Assessment Pt not responding well to PT, not progressing, significantly limited with severe pain levels. Recommend pt returning to PCP for next step, would likely benefit from up-dated imaging. Physical Therapy Plan Frequency and Duration Frequency of Treatment 1-2x/week Plan of Care Start Date 11/11/22 Plan of Care End Date 02/09/23 Therapeutic Interventions Therapeutic Interventions Home Exercise Program,Joint Mobilizations,Manual Therapy, Neuromuscular Re-education, Patient/Caregiver Education, Self-Care/Home Management,Soft Tissue Mobilization, Therapeutic Activities, Therapeutic Exercises Modalities Cold Pack/Ice Massage,Hot Packs,Ultrasound Discharge Physical Therapy Discharge Reasons Plateau in Progress Next Visit Focus/Plan Next Note Type Discharge Summary
== END 2022-12-17 11:37 | disposition home or self-care (01) ==
LOC: PHYS 13:45
PROVIDERS: Family Provider Family Medicine; PCP Family Medicine; Referring Provider Family Medicine; Visit Provider Family Medicine
DX: G89.4 Chronic pain syndrome (principal); M48.02 Spinal stenosis, cervical region; E66.9 Obesity, unspecified
CPT/HCPCS: 97110; 97140; 97163; 97535

== ENCOUNTER → 2023-02-17 06:57 | Outpatient (CLI) | payer OTHER, MEDICAID, SELFPAY ==
[2023-02-17 08:27] LABS: Add Manual Diff / Slide Review NO; Basophils Absolute Auto 100 /uL (0-100); Basophils Percent Auto 0.5 % (0-2); Eosinophils Absolute Auto 200 /uL (0-450); Eosinophils Percent Auto 1.8 % (2-4); Hematocrit 33.1 % (41-53); Hemoglobin 10.5 g/dL (13.5-17.5); Lymphocytes Absolute Auto 3500 /uL (1100-4500); Lymphocytes Percent Auto 34.2 % (25-40); Mean Corpuscular HGB Conc 31.7 % (30-36); Mean Corpuscular Hemoglobin 22.8 PG (26-34); Mean Corpuscular Volume 71.9 fL (80-100); Monocytes Absolute Auto 800 /uL (0-900); Monocytes Percent Auto 7.8 % (3-14); Neutrophils Absolute Auto 5700 /uL (1500-7000); Neutrophils Percent Auto 55.7 % (50-75); Platelet Count 269 X10^3/uL (150-400); Red Blood Cell Count 4.61 X10^6/uL (4.5-5.9); Red Cell Distribution Width 18.4 % (11.6-14.8); White Blood Cell Count 10.3 X10^3/uL (4.5-11.0)
[2023-02-17 08:46] LABS: Alanine Aminotransferase 27 IU/L (<50); Albumin 4.2 g/dL (3.5-5.0); Albumin Globulin Ratio 1.4 (1.0-2.8); Alkaline Phosphatase 107 U/L (38-126); Aspartate Aminotransferase 19 IU/L (17-59); Bilirubin Total 0.3 mg/dL (0.2-1.3); Blood Urea Nitrogen 23 mg/dL (9-20); Calcium 9.3 mg/dL (8.4-10.2); Carbon Dioxide 32 mmol/L (22-32); Chloride 93 mmol/L (98-107); Cholesterol 250 mg/dL (140-199); Estimated Glomerular Filt Rate > 60 mL/min (>60); Glucose 139 mg/dL (70-100); HDL Cholesterol 59 mg/dL (40-60); HEMOLYSIS < 15 (0-50); LDL Cholesterol Calculated 136 mg/dL (<100); Potassium 4.4 mmol/L (3.4-5.1); Sodium 133 mmol/L (137-145); Total Protein 7.2 g/dL (6.3-8.2); Triglycerides 274 mg/dL (35-150)
[2023-02-17 09:34] LABS: TSH w/ Reflex to FT4 1.11 uIU/mL (0.47-4.68)
[2023-02-17 12:29] LABS: Creatinine Urine Random 29.5 mg/dL
[2023-02-17 12:53] LABS: Microalbumi Creatinin Ratio Ur 1172.8 ug/mg CR (<30); Microalbumin Urine Random 34.6 mg/dL (0-1.6)
[2023-02-18 04:26] LABS: x Labcorp Estim. Avg Glu (eAG) 163 mg/dL (.); x Labcorp Hemoglobin A1c 7.3 % (4.8-5.6)
== END ==
PROVIDERS: Family Provider Family Medicine; PCP Family Medicine; Referring Provider Family Medicine; Visit Provider Family Medicine
DX: E11.9 Type 2 diabetes mellitus without complications (principal); E66.9 Obesity, unspecified; I10 Essential (primary) hypertension
CPT/HCPCS: 36415; 80053; 80061; 82043; 82570; 83036; 84443; 85025

== ENCOUNTER → 2023-09-15 11:45 | Outpatient (CLI) | payer OTHER, MEDICAID, SELFPAY ==
[2023-09-15 16:27] LABS: Protein (Total) Urine Random 118 mg/dL (0-12)
[2023-09-15 17:39] LABS: Creatinine Urine Random 43.2 mg/dL; Protein Creatinine Ratio Urine 2.73 GRAM/24H
== END ==
PROVIDERS: Family Provider Family Medicine; PCP Family Medicine; Referring Provider Internal Medicine Nephrology; Visit Provider Internal Medicine Nephrology
DX: E11.9 Type 2 diabetes mellitus without complications (principal); I10 Essential (primary) hypertension; R80.9 Proteinuria, unspecified
CPT/HCPCS: 82570; 84156

== ENCOUNTER 2023-11-22 00:12 | Emergency (ER) | payer OTHER, MEDICAID, SELFPAY ==
[2023-11-22] VITALS (13 sets, daily range): BP systolic 101–137; BP diastolic 55–68; PULSE 87–124; RESP 16–20; TEMP 36.8–37.4; O2SAT 92–98
--- NOTE | 2023-11-22 00:26 | ED.LOWEXIN ---
HPI - Extremity Injury (Lower) General Chief Complaint: Extremity Injury, Lower Stated Complaint: varicose vein popped. Time Seen by Provider: 11/22/23 00:15 Source: patient Mode of arrival: EMS History of Present Illness HPI Narrative: Spontaneous ruptured varicose vein just prior to arrival. Denies use of blood thinners. Copious bleeding. Bandage prior to arrival by EMS Related Data Home Medications Medication Instructions Recorded Confirmed Disabled Parking Permit / . PRN 06/30/18 11/23/23 dapagliflozin propanediol [Farxiga] PO 10/07/23 11/23/23 spironolactone PO 10/07/23 11/23/23 Previous Rx's Medication Instructions Recorded Glucose: Home Monitor ea ##1 02/05/17 Nebulizer: Home Unit units Q4HP PRN ##1 05/06/17 epinephrine 0.3 mg/0.3 mL 0.3 mg (0.3 mL) IM SEE 07/17/19 injection, auto-injector (EpiPen INSTRUCTIONS #2 ea 2-Nura) Glucose: Test Strips See Rx Instructions percutaneous 11/07/19 DAILY #100 strips Lancets See Rx Instructions percutaneous 11/07/19 DAILY #100 strips naloxone 0.4 mg/mL injection 0.4 mg IM ONCE #1 mL 10/04/20 syringe Parking Permit... #1 ea 11/28/21 furosemide 40 mg tablet See Rx Instructions .Route 11/05/22 .COMPLEX #180 tabs losartan 100 mg tablet 100 mg PO DAILY #90 tabs 03/22/23 albuterol sulfate 90 mcg/actuation See Rx Instructions .Route 09/07/23 aerosol inhaler .COMPLEX #8.5 grams prednisone 10 mg tablet 10 mg PO DAILY #100 tabs 09/09/23 tiotropium bromide 18 mcg capsule See Rx Instructions .Route 09/22/23 with inhalation device (Spiriva .COMPLEX #30 caps with HandiHaler) amlodipine 10 mg tablet See Rx Instructions .Route 10/05/23 .COMPLEX #90 tabs beclomethasone dipropionate 80 See Rx Instructions .Route 10/05/23 mcg/actuation HFA breath activated .COMPLEX #10.6 grams aerosol (Qvar RediHaler) metformin 500 mg tablet See Rx Instructions .Route 10/05/23 .COMPLEX #360 tabs bupropion HCl 150 mg 24 hr tablet, 150 mg PO QAM #90 tabs 10/07/23 extended release (Wellbutrin XL) diazepam 5 mg tablet See Rx Instructions .Route 10/07/23 .COMPLEX #15 tabs cyclobenzaprine 10 mg tablet See Rx Instructions .Route 10/08/23 .COMPLEX #270 tabs gabapentin 600 mg tablet 1,200 mg (2 x 600 mg) PO 3XD #240 10/08/23 tabs peg 3350-electrolytes 236 240 ml PO Q10M #4,000 mL 10/11/23 gram-22.74 gram-6.74 gram-5.86 gram solution (Golytely) glimepiride 4 mg tablet See Rx Instructions .Route 11/03/23 .COMPLEX #120 tabs mometasone-formoterol HFA 200 See Rx Instructions .Route 11/08/23 mcg-5 mcg/actuation aerosol .COMPLEX #13 grams inhaler (Dulera) finasteride 5 mg tablet See Rx Instructions .Route 11/18/23 .COMPLEX #90 tabs fentanyl 12 mcg/hr transdermal 1 patch transdermal Q96H #5 ea 11/23/23 patch fentanyl 12 mcg/hr transdermal 1 patch transdermal Q96H #5 ea 11/23/23 patch fentanyl 12 mcg/hr transdermal 1 patch transdermal Q96H #5 ea 11/23/23 patch ferrous gluconate 324 mg (37.5 mg 324 mg PO DAILY #90 tabs 11/23/23 iron) tablet oxycodone-acetaminophen 10 mg-325 See Rx Instructions PO .COMPLEX 11/23/23 mg tablet (Percocet) PRN pain #180 tabs oxycodone-acetaminophen 10 mg-325 See Rx Instructions PO .COMPLEX 11/23/23 mg tablet (Percocet) PRN pain #180 tabs Allergies Allergy/AdvReac Type Severity Reaction Status Date / Time Cephalosporins Allergy Severe ANAPHYLAXIS Verified 11/23/23 11:34 [CEPHALOSPORINS] Penicillins [PENICILLINS] Allergy Severe ANAPHYLAXIS Verified 11/23/23 11:34 cephalexin [CEPHALEXIN] Allergy Mild FACIAL Verified 11/23/23 11:34 SWELLING doxycycline [DOXYCYCLINE] Allergy Mild HIVES Verified 11/23/23 11:34 terbinafine [TERBINAFINE] Allergy Unknown Verified 11/23/23 11:34 nut - unspecified Allergy Verified 11/23/23 11:34 Beta-Blockers AdvReac Mild ASTHMA Verified 11/23/23 11:34 (Beta-Adrenergic Bloc nadolol [NADOLOL] AdvReac Mild AGGREVATES Verified 11/23/23 11:34 ASTHMA Sulfa (Sulfonamide AdvReac Mild VOMITING Verified 11/23/23 11:34 Antibiotics) [SULFA (SULFONAMIDE ANTIBIOTICS)] Review of Systems Review of Systems Narrative: Otherwise negative Patient History Medical History Cervical stenosis of spinal canal Chronic pain syndrome Hyperlipidemia Hypertension Myocarditis Varicose vein of leg Surgical History No pertinent past surgical history Social History (System 04/04/18 @ 15:39 by Billy Ramos) Smoking Status: Current every day smoker Smoking Status: Current every day smoker alcohol intake frequency: 0-2 drinks per day Substance Use Type: does not use Exam Initial Vital Signs Initial Vital Signs: Vital Signs Temperature 99.3 F 11/22/23 00:19 Pulse Rate 122 H 11/22/23 00:19 Respiratory Rate 20 11/22/23 00:19 Blood Pressure 126/55 L 11/22/23 00:19 Pulse Oximetry 98 11/22/23 00:19 Oxygen Delivery Method Room Air 11/22/23 00:19 Const: Awake, alert, anxious, nontoxic Cardiac: r tachycardia, regular rhythm RESP: unlabored, clear bilaterally, no wheezing GI: Soft, nontender, nondistended, no rebound, no guarding MSK: Extensive varicose veins Skin: Large Bleeding varicose vein inner left phillips Neuro: AO x3, CN II-XII grossly intact, moves all extremities Procedures Laceration Repair Laceration 1: Site: lower extremity Side (If applicable): left Size (cm): 1 Description: clean and other (bleeding varicose vein) Depth: simple, single layer Local Anesthetic: lidocaine 1% and with epi Amount of anesthesia used (mL): 5 Skin layer closed with: nylon Skin layer suture size: 3-0 Number of sutures: 1 Technique: other (figure of 8) Course Orders Ordered: ED Orders 11/22/23 00:51 HH [Hemoglobin and Hematocrit] Stat 11/22/23 02:54 HH [Hemoglobin and Hematocrit] Stat Vital Signs Vital signs: Vital Signs - 8 hr 11/22/23 00:19 11/22/23 00:22 11/22/23 00:45 Temperature 99.3 F Pulse Rate 122 H 124 H Pulse Rate [Left Dorsalis Pedis] 120 H Respiratory Rate 20 18 Blood Pressure 126/55 L 101/55 L Pulse Oximetry 98 96 Oxygen Delivery Method Room Air Room Air 11/22/23 01:00 11/22/23 01:56 11/22/23 02:00 Temperature Pulse Rate 113 H 103 H 102 H Pulse Rate [Left Dorsalis Pedis] Respiratory Rate 18 Blood Pressure 117/57 L Pulse Oximetry 96 95 96 Oxygen Delivery Method 11/22/23 02:00 11/22/23 02:36 11/22/23 02:36 Temperature Pulse Rate 107 H Pulse Rate [Left Dorsalis Pedis] Respiratory Rate Blood Pressure 106/58 L 118/62 Pulse Oximetry 97 Oxygen Delivery Method Room Air 11/22/23 03:00 11/22/23 03:00 11/22/23 03:30 Temperature Pulse Rate 95 H 93 H Pulse Rate [Left Dorsalis Pedis] Respiratory Rate Blood Pressure 110/65 Pulse Oximetry 96 97 Oxygen Delivery Method 11/22/23 03:30 11/22/23 04:00 11/22/23 04:00 Temperature Pulse Rate 87 Pulse Rate [Left Dorsalis Pedis] Respiratory Rate Blood Pressure 112/58 L 114/68 Pulse Oximetry 97 Oxygen Delivery Method 11/22/23 04:30 11/22/23 04:30 11/22/23 05:00 Temperature Pulse Rate 88 87 Pulse Rate [Left Dorsalis Pedis] Respiratory Rate Blood Pressure 118/64 Pulse Oximetry 94 95 Oxygen Delivery Method Room Air 11/22/23 05:00 11/22/23 05:30 11/22/23 05:30 Temperature 98.2 F Pulse Rate 100 H Pulse Rate [Left Dorsalis Pedis] Respiratory Rate 16 Blood Pressure 108/66 137/60 Pulse Oximetry 96 92 Oxygen Delivery Method Room Air 11/22/23 05:30 Temperature Pulse Rate Pulse Rate [Left Dorsalis Pedis] Respiratory Rate Blood Pressure 137/60 Pulse Oximetry Oxygen Delivery Method MDM - Extremity Injury (Lower) Differential Diagnosis Differential diagnosis: Likely ankle sprain and strain, acute internal derangement of knee and fracture of femur Lab Data 11/22/23 02:54 Labs: Lab Results 11/22/23 11/22/23 Range/Units 00:51 02:54 Hgb 9.3 L 8.6 L (13.5-17.5) g/dL Hct 29.6 L 27.3 L (41-53) % MDM Narrative Medical decision making narrative: Large bleeding varicose vein. Repaired per procedure note with figure of 8 stitch with excellent hemostasis. Patient was noted to be tachycardic with a heart rate variable between 110 and 120 beats per minute, however patient states that this is his baseline heart rate and he was always tachycardic. He states that he felt somewhat lightheaded and shaky. Patient did have down trending hemoglobin, however he did not meet transfusion threshold and the source of patient's blood loss has been sutured closed. Patient monitored for several hours, subsequently felt much better and ready to go home. Patient was counseled to follow up with vascular surgery for his varicose veins. ED return precautions discussed at bedside. Patient expressed understanding of the plan and is in agreement at this time. All questions answered at the time of discharge. Discharge Plan Departure Patient Disposition: Home Clinical Impression: Bleeding from varicose veins of right lower extremity Anemia Qualifiers: Anemia type: unspecified type Qualified Code(s): D64.9 - Anemia, unspecified Instructions: DI for Varicose Veins Activity Restrictions/Additional Instructions: Keep the suture area clean and dry. If you get it wet pat it, do not rub it. It should be removed in approximately 7-10 days, follow up with your primary care physician as well. Prescriptions: No Action Glucose: Home Monitor Qty: 1 0RF Nebulizer: Home Unit Q4HP PRNQty: 1 0RF (DME) Parking Permit... See Rx Instructions .Route .MEDSUPPLY Qty: 1 0RF Rx Instructions: I find this patient to be medically disabled and qualified for Disabled parking as indicated , and signed, on the accompanying Disabled Parking Application for Individuals. furosemide 40 mg tablet See Rx Instructions .ROUTE .COMPLEX Qty: 180 3RF Dose Instruction: take 1 to 2 tablets by mouth if needed for SWELLING Rx Instructions: take 1 to 2 tablets by mouth if needed for SWELLING losartan 100 mg tablet 100 mg PO DAILY Qty: 90 3RF albuterol sulfate 90 mcg/actuation HFA aerosol inhaler See Rx Instructions .ROUTE .COMPLEX Qty: 8.5 5RF Dose Instruction: inhale 2 puffs by mouth every 6 hours if needed for shortness of breath or wheezing Rx Instructions: inhale 2 puffs by mouth every 6 hours if needed for shortness of breath or wheezing prednisone 10 mg tablet 10 mg PO DAILY Qty: 100 0RF Spiriva with HandiHaler 18 mcg capsule, w/inhalation device See Rx Instructions .ROUTE .COMPLEX Qty: 30 3RF Dose Instruction: inhale THE contents of 1 capsule in THE HANDIHALER once daily Rx Instructions: inhale THE contents of 1 capsule in THE HANDIHALER once daily Qvar RediHaler 80 mcg/actuation HFA aerosol breath activated See Rx Instructions .ROUTE .COMPLEX Qty: 10.6 3RF Dose Instruction: inhale 1 puff by mouth every 12 hours Rx Instructions: inhale 1 puff by mouth every 12 hours metformin 500 mg tablet See Rx Instructions .ROUTE .COMPLEX Qty: 360 3RF Dose Instruction: take 2 tablets by mouth twice a day with meals Rx Instructions: take 2 tablets by mouth twice a day with meals amlodipine 10 mg tablet See Rx Instructions .ROUTE .COMPLEX Qty: 90 3RF Dose Instruction: take 1 tablet by mouth once daily Rx Instructions: take 1 tablet by mouth once daily cyclobenzaprine 10 mg tablet See Rx Instructions .ROUTE .COMPLEX Qty: 270 0RF Dose Instruction: take 1 tablet by mouth three times a day if needed for SPASM(S) Rx Instructions: take 1 tablet by mouth three times a day if needed for SPASM(S) gabapentin 600 mg tablet 1,200 mg PO 3XD Qty: 240 0RF peg 3350-electrolytes [Golytely] 236-22.74-6.74 -5.86 gram recon soln 240 ml PO Q10M Qty: 4000 0RF Rx Instructions: take as directed by Physician glimepiride 4 mg tablet See Rx Instructions .ROUTE .COMPLEX Qty: 120 0RF Dose Instruction: TAKE TWO TABLETS BY MOUTH TWICE DAILY Rx Instructions: TAKE TWO TABLETS BY MOUTH TWICE DAILY Dulera 200-5 mcg/actuation HFA aerosol inhaler See Rx Instructions .ROUTE .COMPLEX Qty: 13 6RF Dose Instruction: inhale 2 puffs by mouth and INTO THE LUNGS twice a day Rx Instructions: inhale 2 puffs by mouth and INTO THE LUNGS twice a day finasteride 5 mg tablet See Rx Instructions .ROUTE .COMPLEX Qty: 90 3RF Dose Instruction: take 1 tablet by mouth once daily Rx Instructions: take 1 tablet by mouth once daily epinephrine [EpiPen 2-Nura] 0.3 mg/0.3 mL auto-injector 0.3 mg IM SEE INSTRUCTIONS Qty: 2 5RF Glucose: Test Strips See Rx Instructions percutaneous DAILY Qty: 100 3RF Rx Instructions: percutaneous daily; Lancets See Rx Instructions percutaneous DAILY Qty: 100 3RF Rx Instructions: percutaneous daily; naloxone 0.4 mg/mL syringe 0.4 mg IM ONCE Qty: 1 0RF Rx Instructions: Inject if found down. dapagliflozin propanediol [Farxiga] PO spironolactone PO diazepam 5 mg tablet See Rx Instructions .ROUTE .COMPLEX Qty: 15 1RF Rx Instructions: Take 1 tablet at bedtime as needed for sleep. to last 30 days bupropion HCl [Wellbutrin XL] 150 mg tablet extended release 24 hr 150 mg PO QAM Qty: 90 1RF oxycodone-acetaminophen [Percocet] 10-325 mg tablet See Rx Instructions PO .COMPLEX PRN (Reason: pain) Qty: 180 0RF Rx Instructions: take 2 tablets by mouth every 4 hours if needed for pain. oxycodone-acetaminophen [Percocet] 10-325 mg tablet See Rx Instructions PO .COMPLEX PRN (Reason: pain) Qty: 180 0RF Rx Instructions: take 2 tablets by mouth every 4 hours if needed for pain. fentanyl 12 mcg/hr patch 72 hour 1 patch transdermal Q96H Qty: 5 0RF fentanyl 12 mcg/hr patch 72 hour 1 patch transdermal Q96H Qty: 5 0RF fentanyl 12 mcg/hr patch 72 hour 1 patch transdermal Q96H Qty: 5 0RF ferrous gluconate 324 mg (37.5 mg iron) tablet 324 mg PO DAILY Qty: 90 3RF Disabled Parking Permit . PRN Referrals: Ricardo Victoria MD [Primary Care Provider] - Stand Alone Forms: Patient Portal/API
[2023-11-22 01:01] LABS: Hematocrit 29.6 % (41-53); Hemoglobin 9.3 g/dL (13.5-17.5)
--- NOTE | 2023-11-22 02:02 | PC.NURSE ---
Pt stating he is still feeling slightly dizzy. MD aware. Pt is waiting until this feeling decreases.
--- NOTE | 2023-11-22 02:39 | PC.NURSE ---
Pt ambulated to doorway in room and after about 15second of standing still in doorway, stated he started to feel dizzy again. This is farther than he has been prior to now. VSS. MD Blackman aware.
[2023-11-22 03:03] LABS: Hematocrit 27.3 % (41-53); Hemoglobin 8.6 g/dL (13.5-17.5)
--- NOTE | 2023-11-22 03:52 | PC.NURSE ---
Attempted to have pt ambulate. Pt was able to stand still and states it s not as severe at before but does still have some dizziness. Pt instructed to sit back down. Pt is now resting in bed. MD Blackman aware. Pt vital signs stable.
== END 2023-11-22 05:39 | disposition home or self-care (01) ==
PROVIDERS: Emergency Provider Emergency Medicine; Family Provider Family Medicine; PCP Family Medicine
DX: I83.891 Varicose veins of right lower extremity with other complications (principal); D64.9 Anemia, unspecified
CPT/HCPCS: 12001; 36415; 85014; 85018; 99281; 99283

== ENCOUNTER → 2023-12-05 11:03 | Outpatient (CLI) | payer OTHER, MEDICAID, SELFPAY | PROVIDERS: Family Provider Family Medicine; PCP Family Medicine; Visit Provider Nurse Practitioner Family | DX: T14.8XXA Other injury of unspecified body region, initial encounter (principal) | CPT/HCPCS: 87070; 87075; 87077; 87186; 87205 ==

== ENCOUNTER 2023-12-09 09:47 | Emergency (ER) | payer OTHER, MEDICAID, SELFPAY ==
[2023-12-09 10:06] VITALS: BP 173/72; PULSE 101; RESP 18; TEMP 36.6; O2SAT 99; BMI 44.1
[2023-12-09 10:38] VITALS: BP 175/90
--- NOTE | 2023-12-09 10:42 | ED.SKABFB ---
HPI - Skin/Abscess/Foreign Bdy General Chief complaint: Skin/Abscess/Foreign Body Stated complaint: lt leg infection red Time Seen by Provider: 12/09/23 10:33 Source: patient Mode of arrival: Ambulatory History of Present Illness HPI narrative: 53-year-old male presents for evaluation of left leg redness. Patient was seen in the emergency department on 11/21 for popped varicose vein. This was sutured by myself and he was discharged after a close monitoring period. Patient was seen in the office on 12/02 for suture removal. Patient states that this took quite some time as the suture was difficult to remove. On 12/04 patient presented to the walk-in clinic out of concerns that it was red and swelling. A culture was taken of the wound but he was not discharged on any antibiotics. He states his leg has continued to become more red and he was concerned that there may be infection. Denies any further bleeding. Related Data Home Medications Medication Instructions Recorded Confirmed dapagliflozin propanediol [Farxiga] 10 mg PO DAILY 10/07/23 12/09/23 spironolactone PO 10/07/23 11/23/23 Previous Rx's Medication Instructions Recorded epinephrine 0.3 mg/0.3 mL 0.3 mg (0.3 mL) IM SEE 07/17/19 injection, auto-injector (EpiPen INSTRUCTIONS #2 ea 2-Nura) furosemide 40 mg tablet See Rx Instructions .Route 11/05/22 .COMPLEX #180 tabs losartan 100 mg tablet 100 mg PO DAILY #90 tabs 03/22/23 tiotropium bromide 18 mcg capsule See Rx Instructions .Route 09/22/23 with inhalation device (Spiriva .COMPLEX #30 caps with HandiHaler) amlodipine 10 mg tablet See Rx Instructions .Route 10/05/23 .COMPLEX #90 tabs beclomethasone dipropionate 80 See Rx Instructions .Route 10/05/23 mcg/actuation HFA breath activated .COMPLEX #10.6 grams aerosol (Qvar RediHaler) metformin 500 mg tablet See Rx Instructions .Route 10/05/23 .COMPLEX #360 tabs diazepam 5 mg tablet See Rx Instructions .Route 10/07/23 .COMPLEX #15 tabs cyclobenzaprine 10 mg tablet See Rx Instructions .Route 10/08/23 .COMPLEX #270 tabs gabapentin 600 mg tablet 1,200 mg (2 x 600 mg) PO 3XD #240 10/08/23 tabs mometasone-formoterol HFA 200 See Rx Instructions .Route 11/08/23 mcg-5 mcg/actuation aerosol .COMPLEX #13 grams inhaler (Dulera) finasteride 5 mg tablet See Rx Instructions .Route 11/18/23 .COMPLEX #90 tabs fentanyl 12 mcg/hr transdermal 1 patch transdermal Q96H #5 ea 11/23/23 patch ferrous gluconate 324 mg (37.5 mg 324 mg PO DAILY #90 tabs 11/23/23 iron) tablet oxycodone-acetaminophen 10 mg-325 See Rx Instructions PO .COMPLEX 11/23/23 mg tablet (Percocet) PRN pain #180 tabs glimepiride 4 mg tablet See Rx Instructions .Route 12/02/23 .COMPLEX #120 tabs prednisone 10 mg tablet 10 mg PO DAILY #100 tabs 12/06/23 albuterol sulfate 90 mcg/actuation See Rx Instructions .Route 12/08/23 aerosol inhaler .COMPLEX #8.5 grams Allergies Allergy/AdvReac Type Severity Reaction Status Date / Time Cephalosporins Allergy Severe ANAPHYLAXIS Verified 12/09/23 10:09 [CEPHALOSPORINS] Penicillins [PENICILLINS] Allergy Severe ANAPHYLAXIS Verified 12/09/23 10:09 cephalexin [CEPHALEXIN] Allergy Mild FACIAL Verified 12/09/23 10:09 SWELLING doxycycline [DOXYCYCLINE] Allergy Mild HIVES Verified 12/09/23 10:09 terbinafine [TERBINAFINE] Allergy Unknown Verified 12/09/23 10:09 nut - unspecified Allergy Verified 12/09/23 10:09 Beta-Blockers AdvReac Mild ASTHMA Verified 12/09/23 10:09 (Beta-Adrenergic Bloc nadolol [NADOLOL] AdvReac Mild AGGREVATES Verified 12/09/23 10:09 ASTHMA Sulfa (Sulfonamide AdvReac Mild VOMITING Verified 12/09/23 10:09 Antibiotics) [SULFA (SULFONAMIDE ANTIBIOTICS)] Review of Systems Review of Systems Narrative: Negative except as noted above Patient History Medical History Cervical stenosis of spinal canal Chronic pain syndrome Hyperlipidemia Hypertension Myocarditis Varicose vein of leg Surgical History No pertinent past surgical history Social History (System 04/04/18 @ 15:39 by Billy Ramos) Smoking Status: Current every day smoker Smoking Status: Current every day smoker alcohol intake frequency: other Substance Use Type: does not use Exam Initial Vital Signs Initial Vital Signs: Vital Signs Temperature 97.8 F 12/09/23 10:06 Pulse Rate 101 H 12/09/23 10:06 Respiratory Rate 18 12/09/23 10:06 Blood Pressure 173/72 H 12/09/23 10:06 Pulse Oximetry 99 12/09/23 10:06 Oxygen Delivery Method Room Air 12/09/23 10:06 Const: Awake, alert, no acute distress, nontoxic appearing MSK: Atraumatic, full range of motion, pulses equal Skin: Warm, Dry, mild erythema and warmth over medial aspect of left lower extremity Neuro: AO x3, CN II-XII grossly intact, moves all extremities Course Orders Ordered: ED Orders 12/09/23 10:58 BMP [Basic Metabolic Panel] Stat CBC Auto Diff [Complete Blood Count AUTO DIFF] Stat Vital Signs Vital signs: Vital Signs - 8 hr 12/09/23 10:06 12/09/23 10:38 12/09/23 11:00 Temperature 97.8 F Pulse Rate 101 H 98 H Respiratory Rate 18 Blood Pressure 173/72 H 175/90 H Pulse Oximetry 99 100 Oxygen Delivery Method Room Air 12/09/23 11:03 12/09/23 11:03 Temperature Pulse Rate 102 H Respiratory Rate Blood Pressure 131/62 Pulse Oximetry 100 Oxygen Delivery Method Room Air MDM - Skin/Abscess/Foreign Bdy Lab Data 12/09/23 10:58 12/09/23 10:58 Labs: Lab Results 12/09/23 Range/Units 10:58 WBC 8.8 (4.5-11.0) X10^3/uL RBC 3.66 L (4.5-5.9) X10^6/uL Hgb 8.2 L (13.5-17.5) g/dL Hct 26.7 L (41-53) % MCV 73.0 L (80-100) fL MCH 22.4 L (26-34) PG MCHC 30.6 (30-36) % RDW 18.1 H (11.6-14.8) % Plt Count 343 (150-400) X10^3/uL Neut % (Auto) 88.2 H (50-75) % Lymph % (Auto) 7.2 L (25-40) % [place] % (Auto) 3.9 (3-14) % Eos % (Auto) 0.2 L (2-4) % Baso % (Auto) 0.5 (0-2) % Neut # (Auto) 7700 H (9016-0370) /uL Lymph # (Auto) 600 L (5257-9405) /uL [place] # (Auto) 300 (0-900) /uL Eos # (Auto) 0 (0-450) /uL Baso # (Auto) 0 (0-100) /uL Sodium 135 L (137-145) mmol/L Potassium 4.9 (3.4-5.1) mmol/L Chloride 102 (98-107) mmol/L Carbon Dioxide 28 (22-32) mmol/L BUN 29 H (9-20) mg/dL Creatinine 0.93 (0.66-1.25) mg/dL Estimated GFR > 60 (>60) mL/min BUN/Creatinine Ratio 31.2 H (6-22) Glucose 207 H (70-100) mg/dL Calcium 9.8 (8.4-10.2) mg/dL MDM Narrative Medical decision making narrative: Patient presenting out of concern that he may have an infected suture removal site. On exam the area does appear to be somewhat erythematous with warmth. Also reports lightheadedness and is concerned that he may have an infection. Patient is being monitored for anemia and was started on iron supplements recently. Patient denies any further bleeding other than his varicose vein 2 weeks prior. Laboratory work is reviewed, hemoglobin has decreased from 8.6 to 8.2. Not transfusion threshold, patient was ambulatory to and from the bathroom without any difficulty. Patient was informed of his hemoglobin results. He was counseled to continue to take iron supplements as instructed by his primary care physician and to continue to follow up to see if they can get to the bottom of his anemia. Discharge Plan Departure Patient Disposition: Home Clinical Impression: Cellulitis Instructions: DI for Cellulitis -- Adult Activity Restrictions/Additional Instructions: Take all antibiotics as prescribed. Elevate your lower extremity to help prevent swelling. Your hemoglobin seems to be slowly downtrending. Keep taking the iron supplements your primary care doctor prescribed and follow up in their clinic. Prescriptions: No Action furosemide 40 mg tablet See Rx Instructions .ROUTE .COMPLEX Qty: 180 3RF Dose Instruction: take 1 to 2 tablets by mouth if needed for SWELLING Rx Instructions: take 1 to 2 tablets by mouth if needed for SWELLING losartan 100 mg tablet 100 mg PO DAILY Qty: 90 3RF Spiriva with HandiHaler 18 mcg capsule, w/inhalation device See Rx Instructions .ROUTE .COMPLEX Qty: 30 3RF Dose Instruction: inhale THE contents of 1 capsule in THE HANDIHALER once daily Rx Instructions: inhale THE contents of 1 capsule in THE HANDIHALER once daily Qvar RediHaler 80 mcg/actuation HFA aerosol breath activated See Rx Instructions .ROUTE .COMPLEX Qty: 10.6 3RF Dose Instruction: inhale 1 puff by mouth every 12 hours Rx Instructions: inhale 1 puff by mouth every 12 hours metformin 500 mg tablet See Rx Instructions .ROUTE .COMPLEX Qty: 360 3RF Dose Instruction: take 2 tablets by mouth twice a day with meals Rx Instructions: take 2 tablets by mouth twice a day with meals amlodipine 10 mg tablet See Rx Instructions .ROUTE .COMPLEX Qty: 90 3RF Dose Instruction: take 1 tablet by mouth once daily Rx Instructions: take 1 tablet by mouth once daily cyclobenzaprine 10 mg tablet See Rx Instructions .ROUTE .COMPLEX Qty: 270 0RF Dose Instruction: take 1 tablet by mouth three times a day if needed for SPASM(S) Rx Instructions: take 1 tablet by mouth three times a day if needed for SPASM(S) gabapentin 600 mg tablet 1,200 mg PO 3XD Qty: 240 0RF Dulera 200-5 mcg/actuation HFA aerosol inhaler See Rx Instructions .ROUTE .COMPLEX Qty: 13 6RF Dose Instruction: inhale 2 puffs by mouth and INTO THE LUNGS twice a day Rx Instructions: inhale 2 puffs by mouth and INTO THE LUNGS twice a day finasteride 5 mg tablet See Rx Instructions .ROUTE .COMPLEX Qty: 90 3RF Dose Instruction: take 1 tablet by mouth once daily Rx Instructions: take 1 tablet by mouth once daily glimepiride 4 mg tablet See Rx Instructions .ROUTE .COMPLEX Qty: 120 2RF Dose Instruction: TAKE TWO TABLETS BY MOUTH TWICE DAILY Rx Instructions: TAKE TWO TABLETS BY MOUTH TWICE DAILY prednisone 10 mg tablet 10 mg PO DAILY Qty: 100 3RF albuterol sulfate 90 mcg/actuation HFA aerosol inhaler See Rx Instructions .ROUTE .COMPLEX Qty: 8.5 5RF Dose Instruction: inhale 2 puffs by mouth every 6 hours if needed for shortness of breath or wheezing Rx Instructions: inhale 2 puffs by mouth every 6 hours if needed for shortness of breath or wheezing epinephrine [EpiPen 2-Nura] 0.3 mg/0.3 mL auto-injector 0.3 mg IM SEE INSTRUCTIONS Qty: 2 5RF dapagliflozin propanediol [Farxiga] 10 mg PO DAILY spironolactone PO diazepam 5 mg tablet See Rx Instructions .ROUTE .COMPLEX Qty: 15 1RF Rx Instructions: Take 1 tablet at bedtime as needed for sleep. to last 30 days oxycodone-acetaminophen [Percocet] 10-325 mg tablet See Rx Instructions PO .COMPLEX PRN (Reason: pain) Qty: 180 0RF Rx Instructions: take 2 tablets by mouth every 4 hours if needed for pain. fentanyl 12 mcg/hr patch 72 hour 1 patch transdermal Q96H Qty: 5 0RF ferrous gluconate 324 mg (37.5 mg iron) tablet 324 mg PO DAILY Qty: 90 3RF Referrals: Ricardo Victoria MD [Primary Care Provider] - Stand Alone Forms: Patient Portal/API
[2023-12-09 11:00] VITALS: PULSE 98; O2SAT 100
[2023-12-09 11:03] VITALS: BP 131/62; PULSE 102; O2SAT 100
[2023-12-09 11:03] LABS: Add Manual Diff / Slide Review NO; Basophils Absolute Auto 0 /uL (0-100); Basophils Percent Auto 0.5 % (0-2); Eosinophils Absolute Auto 0 /uL (0-450); Eosinophils Percent Auto 0.2 % (2-4); Hematocrit 26.7 % (41-53); Hemoglobin 8.2 g/dL (13.5-17.5); Lymphocytes Absolute Auto 600 /uL (1100-4500); Lymphocytes Percent Auto 7.2 % (25-40); Mean Corpuscular HGB Conc 30.6 % (30-36); Mean Corpuscular Hemoglobin 22.4 PG (26-34); Monocytes Absolute Auto 300 /uL (0-900); Monocytes Percent Auto 3.9 % (3-14); Neutrophils Absolute Auto 7700 /uL (1500-7000); Neutrophils Percent Auto 88.2 % (50-75); Platelet Count 343 X10^3/uL (150-400); Red Blood Cell Count 3.66 X10^6/uL (4.5-5.9); Red Cell Distribution Width 18.1 % (11.6-14.8); White Blood Cell Count 8.8 X10^3/uL (4.5-11.0)
--- NOTE | 2023-12-09 11:15 | PC.NURSE ---
Pt reports having a stitch put in 3x weeks ago, having stitch removed last wednesday. Since then pt reports nausea, redness and increased pain with ambulation. States fevers yesterday. Pt has a fentanyl patch on his left arm. Denies pain except when he walks, reports pain is worse with walking 4/10.
[2023-12-09 11:18] LABS: BUN Creatinine Ratio 31.2 (6-22); Blood Urea Nitrogen 29 mg/dL (9-20); Calcium 9.8 mg/dL (8.4-10.2); Carbon Dioxide 28 mmol/L (22-32); Chloride 102 mmol/L (98-107); Estimated Glomerular Filt Rate > 60 mL/min (>60); Glucose 207 mg/dL (70-100); HEMOLYSIS < 15 (0-50); Potassium 4.9 mmol/L (3.4-5.1); Sodium 135 mmol/L (137-145)
== END 2023-12-09 11:45 | disposition home or self-care (01) ==
PROVIDERS: Emergency Provider Emergency Medicine; Family Provider Family Medicine; PCP Family Medicine
DX: L03.116 Cellulitis of left lower limb (principal)
CPT/HCPCS: 36415; 80048; 85025; 99281; 99283

== ENCOUNTER → 2023-12-23 07:02 | Outpatient (CLI) | payer OTHER, MEDICAID, SELFPAY ==
[2023-12-23 08:14] LABS: Alanine Aminotransferase 22 IU/L (<50); Albumin 4.1 g/dL (3.5-5.0); Albumin Globulin Ratio 1.5 (1.0-2.8); Alkaline Phosphatase 99 U/L (38-126); Aspartate Aminotransferase 17 IU/L (17-59); BUN Creatinine Ratio 30.7 (6-22); Bilirubin Total 0.3 mg/dL (0.2-1.3); Blood Urea Nitrogen 27 mg/dL (9-20); Calcium 9.6 mg/dL (8.4-10.2); Carbon Dioxide 26 mmol/L (22-32); Chloride 104 mmol/L (98-107); Estimated Glomerular Filt Rate > 60 mL/min (>60); Globulin 2.7 g/dL (1.7-4.1); Glucose 142 mg/dL (70-100); HEMOLYSIS < 15 (0-50); Sodium 136 mmol/L (137-145); Total Protein 6.8 g/dL (6.3-8.2)
[2023-12-23 08:49] LABS: Ferritin 5 ng/mL (18-464)
[2023-12-23 08:58] LABS: HEMOLYSIS < 15 (0-50); Iron 29 ug/dL (49-181)
[2023-12-23 09:04] LABS: Hemoglobin A1C% w Est Avg Glu 6.5 % (4.0-6.0)
[2023-12-23 09:06] LABS: Hep C Virus Ab w/Reflex Quant NEGATIVE s/c (NEGATIVE)
[2023-12-23 09:13] LABS: Percent Iron Saturation 7 % (20-50); Total Iron Binding Capacity 414 ug/dL (261-462); Transferrin 337 mg/dL (206-381)
[2023-12-23 09:20] LABS: Add Manual Diff / Slide Review NO; Basophils Absolute Auto 100 /uL (0-100); Basophils Percent Auto 0.7 % (0-2); Eosinophils Absolute Auto 200 /uL (0-450); Hematocrit 27.4 % (41-53); Hemoglobin 8.2 g/dL (13.5-17.5); Lymphocytes Absolute Auto 3500 /uL (1100-4500); Lymphocytes Percent Auto 31.1 % (25-40); Mean Corpuscular Hemoglobin 21.9 PG (26-34); Mean Corpuscular Volume 72.8 fL (80-100); Monocytes Absolute Auto 1100 /uL (0-900); Monocytes Percent Auto 9.6 % (3-14); Neutrophils Absolute Auto 6300 /uL (1500-7000); Neutrophils Percent Auto 56.6 % (50-75); Platelet Count 329 X10^3/uL (150-400); Red Blood Cell Count 3.77 X10^6/uL (4.5-5.9); Red Cell Distribution Width 17.3 % (11.6-14.8); White Blood Cell Count 11.2 X10^3/uL (4.5-11.0)
== END ==
LOC: LAB 07:03
PROVIDERS: Physician Assistant; Family Provider Family Medicine; PCP Family Medicine; Referring Provider Family Medicine; Visit Provider Family Medicine
DX: E11.9 Type 2 diabetes mellitus without complications (principal); D64.9 Anemia, unspecified; E11.21 Type 2 diabetes mellitus with diabetic nephropathy; G89.4 Chronic pain syndrome; M48.02 Spinal stenosis, cervical region; F17.200 Nicotine dependence, unspecified, uncomplicated; M54.12 Radiculopathy, cervical region; F41.9 Anxiety disorder, unspecified
CPT/HCPCS: 36415; 80053; 82728; 83036; 83540; 83550; 85025; 86803

== ENCOUNTER → 2024-06-06 10:10 | Outpatient (CLI) | payer OTHER, MEDICAID, SELFPAY ==
[2024-06-06 10:43] LABS: Add Manual Diff / Slide Review NO; Basophils Absolute Auto 0 /uL (0-100); Basophils Percent Auto 0.2 % (0-2); Eosinophils Absolute Auto 0 /uL (0-450); Hematocrit 33.9 % (41-53); Hemoglobin 10.6 g/dL (13.5-17.5); Lymphocytes Absolute Auto 1400 /uL (1100-4500); Lymphocytes Percent Auto 13.6 % (25-40); Mean Corpuscular HGB Conc 31.3 % (30-36); Mean Corpuscular Hemoglobin 22.2 PG (26-34); Mean Corpuscular Volume 70.7 fL (80-100); Monocytes Absolute Auto 1000 /uL (0-900); Neutrophils Absolute Auto 8100 /uL (1500-7000); Neutrophils Percent Auto 77.2 % (50-75); Platelet Count 264 X10^3/uL (150-400); Red Blood Cell Count 4.79 X10^6/uL (4.5-5.9); Red Cell Distribution Width 18.9 % (11.6-14.8); White Blood Cell Count 10.5 X10^3/uL (4.5-11.0)
[2024-06-06 11:08] LABS: HEMOLYSIS < 15 (0-50); Iron 38 ug/dL (49-181)
[2024-06-06 11:11] LABS: Albumin 4.4 g/dL (3.5-5.0); BUN Creatinine Ratio 29.2 (6-22); Blood Urea Nitrogen 26 mg/dL (9-20); Calcium 9.7 mg/dL (8.4-10.2); Carbon Dioxide 26 mmol/L (22-32); Chloride 100 mmol/L (98-107); Estimated Glomerular Filt Rate > 60 mL/min (>60); Glucose 190 mg/dL (70-100); HEMOLYSIS < 15 (0-50); Potassium 4.7 mmol/L (3.4-5.1); Sodium 136 mmol/L (137-145)
[2024-06-06 11:12] LABS: Creatinine Urine Random 37.63 mg/dL; Protein (Total) Urine Random 37 mg/dL (0-12); Protein Creatinine Ratio Urine 0.98 GRAM/24H
[2024-06-06 11:17] LABS: Microalbumin Urine Random 16.3 mg/dL (0-1.6)
[2024-06-06 11:19] LABS: Percent Iron Saturation 10 % (20-50); Total Iron Binding Capacity 389 ug/dL (261-462); Transferrin 317 mg/dL (206-381)
[2024-06-06 16:34] LABS: Ferritin 6 ng/mL (18-464)
== END ==
PROVIDERS: Family Provider Family Medicine; PCP Family Medicine; Referring Provider Internal Medicine Nephrology; Visit Provider Internal Medicine Nephrology
DX: N18.1 Chronic kidney disease, stage 1 (principal); I83.90 Asymptomatic varicose veins of unspecified lower extremity; F17.200 Nicotine dependence, unspecified, uncomplicated; E11.9 Type 2 diabetes mellitus without complications; I10 Essential (primary) hypertension; D50.9 Iron deficiency anemia, unspecified
CPT/HCPCS: 36415; 80048; 82040; 82043; 82570; 82728; 83540; 83550; 84156; 85025

== ENCOUNTER 2024-06-10 18:55 | Inpatient (IN) | payer OTHER, MEDICAID, SELFPAY ==
[2024-06-10] VITALS (14 sets, daily range): BP systolic 124–175; BP diastolic 56–79; PULSE 114–133; RESP 17–46; TEMP 36.5–37.7; O2SAT 87–100; BMI 43.0
--- NOTE | 2024-06-10 19:04 | DI.RAD.S_ITS ---
PROCEDURE: XR CHEST 1V INDICATIONS: Shortness of breath TECHNIQUE: One view of the chest was acquired. COMPARISON: None. FINDINGS: Surgical changes and devices: None. Lungs and pleura: Increased interstitial markings may represent mild pulmonary edema. No focal dense airspace consolidation. No pleural effusions or pneumothorax. Mediastinum: Mediastinal contours appear normal. Heart size is normal. Bones and chest wall: No suspicious bony lesions. Overlying soft tissues appear unremarkable. IMPRESSION: Increased interstitial markings may represent mild pulmonary edema. No focal airspace consolidation. Approved by: Kriss Perdue M.D.,Ph.D. on 06/10/2024 at 19:57
--- NOTE | 2024-06-10 19:04 | EKG_ITS ---
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
--- NOTE | 2024-06-10 19:20 | ED.GENADULT ---
HPI - General Adult General Chief complaint: Shortness of Breath/Dyspnea Stated complaint: SOB Time Seen by Provider: 06/10/24 18:56 Source: patient Mode of arrival: Ambulatory Limitations: no limitations History of Present Illness HPI narrative: Patient is a 54-year-old male. Has a history of chronic neck and back pain, asthma, hypertension, anxiety, anemia, diabetes here for evaluation of shortness of breath. Patient states his symptoms started this morning. He does have a cough. No fevers. No chest pain. No change in any lower extremity edema. No abdominal pain or nausea or vomiting. He stated that he has been using his inhalers at home without improvement of symptoms. Also has sinus congestion but no sore throat. No skin rashes. Related Data Home Medications Medication Instructions Recorded Confirmed dapagliflozin propanediol [Farxiga] 10 mg PO DAILY 10/07/23 06/10/24 spironolactone 25 mg tablet 25 mg PO BID 12/28/23 06/10/24 amlodipine 10 mg tablet 10 mg PO DAILY 06/10/24 06/10/24 cyclobenzaprine 10 mg tablet 10 mg PO TID 06/10/24 06/10/24 diazepam 5 mg tablet 5 mg PO Q OTHER DAY 06/10/24 06/10/24 finasteride 5 mg tablet 5 mg PO DAILY 06/10/24 06/10/24 furosemide 40 mg tablet See Rx Instructions .Route 06/10/24 06/10/24 .COMPLEX PRN Swelling gabapentin 600 mg tablet 1,200 mg PO BID 06/10/24 06/10/24 metformin 500 mg tablet See Rx Instructions .Route .COMPLEX 06/10/24 06/10/24 oxycodone-acetaminophen 10 mg-325 10 - 325 tab PO Q4-5H PRN pain 06/10/24 06/10/24 mg tablet (Percocet) prednisone 10 mg tablet 10 mg PO BEDTIME 06/10/24 06/10/24 Previous Rx's Medication Instructions Recorded epinephrine 0.3 mg/0.3 mL 0.3 mg (0.3 mL) IM SEE 07/17/19 injection, auto-injector (EpiPen INSTRUCTIONS #2 ea 2-Nura) ferrous gluconate 324 mg (37.5 mg 324 mg PO DAILY #90 tabs 11/23/23 iron) tablet benralizumab 30 mg/mL subcutaneous 30 mg SUBCUT Q8W 12 months #1 mL 01/05/24 auto-injector (Fasenra Pen) beclomethasone dipropionate 80 See Rx Instructions .Route 02/11/24 mcg/actuation HFA breath activated .COMPLEX #10.6 grams aerosol (Qvar RediHaler) losartan 100 mg tablet 100 mg PO DAILY #90 tabs 02/11/24 albuterol sulfate 90 mcg/actuation See Rx Instructions .Route 03/20/24 aerosol inhaler .COMPLEX #8.5 grams tiotropium bromide 18 mcg capsule See Rx Instructions .Route 05/17/24 with inhalation device (Spiriva .COMPLEX #30 caps with HandiHaler) fentanyl 12 mcg/hr transdermal 1 patch transdermal Q96H #5 ea 05/25/24 patch glimepiride 4 mg tablet 8 mg (2 x 4 mg) PO BID #120 tabs 05/31/24 mometasone-formoterol HFA 200 See Rx Instructions .Route 06/10/24 mcg-5 mcg/actuation aerosol .COMPLEX #13 grams inhaler (Dulera) Allergies Allergy/AdvReac Type Severity Reaction Status Date / Time Cephalosporins Allergy Severe ANAPHYLAXIS Verified 05/01/24 13:25 [CEPHALOSPORINS] Penicillins [PENICILLINS] Allergy Severe ANAPHYLAXIS Verified 05/01/24 13:25 cephalexin [CEPHALEXIN] Allergy Mild FACIAL Verified 05/01/24 13:25 SWELLING doxycycline [DOXYCYCLINE] Allergy Mild HIVES Verified 05/01/24 13:25 terbinafine [TERBINAFINE] Allergy Unknown Verified 05/01/24 13:25 nut - unspecified Allergy Verified 05/01/24 13:25 Beta-Blockers AdvReac Mild ASTHMA Verified 05/01/24 13:25 (Beta-Adrenergic Bloc nadolol [NADOLOL] AdvReac Mild AGGREVATES Verified 05/01/24 13:25 ASTHMA Sulfa (Sulfonamide AdvReac Mild VOMITING Verified 05/01/24 13:25 Antibiotics) [SULFA (SULFONAMIDE ANTIBIOTICS)] Review of Systems Review of Systems ROS Unobtainable: All systems reviewed & are unremarkable except as noted in HPI and below Patient History Medical History 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 Iron deficiency anemia Chronic pain syndrome Cervical stenosis of spinal canal Hypertension Hyperlipidemia Varicose vein of leg Myocarditis Surgical History No pertinent past surgical history Social History household members: significant other Smoking Status: Current every day smoker Smoking Status: Current every day smoker alcohol intake frequency: other Substance Use Type: does not use Exam Initial Vital Signs Initial Vital Signs: Vital Signs Pulse Rate 128 H 06/10/24 19:00 Pulse Oximetry 89 L 06/10/24 19:00 Const General: cooperative, anxious and ill appearing (Chronically ill-appearing) HENMT Head: normal to inspection Resp Effort & Inspection: cough, no retractions and tachypneic Auscultation: clear to auscultation bilaterally Cardio Rate: tachycardic Rhythm: regular rhythm GI Inspection: non-distended Skin Other: No acute rashes. Does have slight cyanosis of both of his hands which he states happens when he ?gets sick? Neuro General: patient alert, patient awake and moves all extremities Extrem General: capillary refill normal Scores GCS [place] coma scale eye opening: Spontaneous [place] coma scale verbal response: Orientated [place] coma scale motor response: Obey commands [place] coma scale total score: 15 Course Orders Ordered: ED Orders 06/10/24 19:04 XR chest 1V Stat EKG-12 Lead Stat Measure peak expiratory flow ONCE RT Consult Eval and Treat NOW 06/10/24 19:25 Respiratory Panel (Film Array) Stat 06/10/24 19:27 Complete Blood Count AUTO DIFF Stat Comprehensive Metabolic Panel Stat D Dimer Stat Lactate (Lactic Acid) Stat NT-proBNP (BNP-Adult 18+) Stat Procalcitonin Stat Troponin & CK Cardiac Panel Stat 06/10/24 20:13 CT angio chest PE protocol Stat 06/10/24 20:40 Blood Culture Stat Albuterol (Albuterol 2.5 Mg/3 Ml Neb (Adult)) 2.5 mg INH Q2H PRN PRN Reason: Shortness Of Breath Albuterol (Albuterol 2.5 Mg/3 Ml Neb (Adult)) 2.5 mg INH Q4HRWA BC Albuterol/Ipratropium (Albuterol/Ipratropium 3 Ml Ampul) 3 ml INH RTQ6HR PRN PRN Reason: Shortness Of Breath Amlodipine Besylate (Amlodipine 5 Mg Tablet) 10 mg PO DAILY COUNTS INCLUDE 234 BEDS AT THE [facility] Budesonide (Budesonide 0.5 Mg/2 Ml Neb) 0.5 mg INH RTBID BC Cyclobenzaprine HCl (Cyclobenzaprine 10 Mg Tablet) 10 mg PO TID PRN PRN Reason: spasms Diazepam (Diazepam 5 Mg Tablet) 5 mg PO BEDTIME PRN PRN Reason: sleep Enoxaparin Sodium (Enoxaparin 40 Mg/0.4 Ml Syringe) 40 mg SUBCUT DAILY COUNTS INCLUDE 234 BEDS AT THE [facility] Fentanyl (Fentanyl 12 Mcg/Patch) mcg TOP Q96H COUNTS INCLUDE 234 BEDS AT THE [facility] Ferrous Sulfate (Ferrous Sulfate 325 Mg Tablet) 325 mg PO DAILY COUNTS INCLUDE 234 BEDS AT THE [facility] Finasteride (Finasteride 5 Mg Tablet) 5 mg PO DAILY COUNTS INCLUDE 234 BEDS AT THE [facility] Furosemide (Furosemide 40 Mg Tablet) 0 mg PO .COMPLEX PRN PRN Reason: Swelling Gabapentin (Gabapentin 600 Mg Tablet) 1,200 mg PO BID COUNTS INCLUDE 234 BEDS AT THE [facility] Last Admin: 06/11/24 00:58 Dose: 1,200 mg Documented By: ISHAN Glimepiride (Glimepiride 2 Mg Tablet) 8 mg PO BID COUNTS INCLUDE 234 BEDS AT THE [facility] Last Admin: 06/11/24 00:57 Dose: Not Given Documented By: ISHAN Levofloxacin (Levaquin) 500 mg in 100 mls @ 100 mls/hr IV Q24H COUNTS INCLUDE 234 BEDS AT THE [facility] Dextrose (D10w) 100 mls @ 999 mls/hr IV PRN PRN PRN Reason: Hypoglycemia Insulin Human Lispro (Insulin Lispro 100 Unit/Ml 3ml Vial) 0 unit SUBCUT ACHS BC; Protocol Ipratropium [place] (Ipratropium 0.5 Mg/2.5 Ml Neb) 0.5 mg INH Q4HRWA COUNTS INCLUDE 234 BEDS AT THE [facility] Ipratropium [place] (Ipratropium 0.5 Mg/2.5 Ml Neb) 0.5 mg INH Q2HR PRN PRN Reason: Shortness Of Breath Losartan Potassium (Losartan 50 Mg Tablet) 100 mg PO DAILY COUNTS INCLUDE 234 BEDS AT THE [facility] Methylprednisolone (Methylprednisolone 40 Mg/Ml Vial) 40 mg IV Q6HR BC Naloxone HCl (Naloxone 0.4 Mg/Ml Vial) 0.2 mg IV Q2MIN PRN PRN Reason: Opiate Reversal Non-Formulary Medication (Benralizumab [Fasenra Pen]) 30 mg SUBCUT Q8W BC (Dapagliflozin (Propanediol 10 Mg)) 10 mg PO DAILY COUNTS INCLUDE 234 BEDS AT THE [facility] Oxycodone HCl (Oxycodone Ir 5 Mg Tablet) 5 mg PO Q4HR PRN PRN Reason: Pain, Moderate (4-6) Oxycodone/Acetaminophen (Oxycodone/Acetaminophen 5/325 Tablet) 1 tab PO Q4HR PRN PRN Reason: Pain, Moderate (4-6) Prednisone (Prednisone 5 Mg Tablet) 10 mg PO BEDTIME BC Spironolactone (Spironolactone 25 Mg Tablet) 25 mg PO BID BC Discontinued Medications Acetaminophen (Acetaminophen 325 Mg Tablet) 650 mg PO Q6H PRN PRN Reason: Fever/Mild Pain (1-3) Sodium Chloride (Normal Saline 0.9%) 1,000 mls @ 1,000 mls/hr IV BOLUS ONE Stop: 06/10/24 20:53 Last Infusion: 06/10/24 22:57 Dose: Infused Documented By: Admin: 06/10/24 21:01 Dose: 1,000 mls/hr Documented By: OMER Azithromycin 500 mg/ Dextrose 250 mls @ 250 mls/hr IV NOW ONE Stop: 06/10/24 19:55 Last Infusion: 06/10/24 22:02 Dose: Infused Documented By: Admin: 06/10/24 21:00 Dose: 250 mls/hr Documented By: OMER Levofloxacin (Levaquin) 750 mg in 150 mls @ 100 mls/hr IV NOW ONE Stop: 06/10/24 22:40 Last Infusion: 06/11/24 00:22 Dose: Infused Documented By: Infusion: 06/10/24 23:00 Dose: 100 mls/hr Documented By: Infusion: 06/10/24 22:50 Dose: 0 mls/hr Documented By: Admin: 06/10/24 22:03 Dose: 100 mls/hr Documented By: TOMY Lorazepam (Lorazepam 2 Mg/Ml Inj) 1 mg IV NOW ONE Stop: 06/10/24 19:23 Last Admin: 06/10/24 19:34 Dose: 1 mg Documented By: TOMY Oxycodone HCl (Oxycodone Ir 5 Mg Tablet) 5 mg PO Q4HR PRN PRN Reason: Pain, Moderate (4-6) Oxycodone HCl (Oxycodone 5 Mg/5 Ml Oral Solution) 10 mg PO Q4HR PRN PRN Reason: Pain, Moderate (4-6) Oxycodone/Acetaminophen (Oxycodone/Acetaminophen 5/325 Tablet) 2 tab PO Q4HR PRN PRN Reason: Pain, Severe (7-10) Last Admin: 06/11/24 00:40 Dose: 2 tab Documented By: CM Vital Signs Vital signs: Vital Signs - 8 hr 06/10/24 19:00 06/10/24 19:01 06/10/24 19:01 Temperature Pulse Rate 128 H 130 H Respiratory Rate Blood Pressure 173/79 H Pulse Oximetry 89 L 91 Oxygen Delivery Method Oxygen Flow Rate 06/10/24 19:03 06/10/24 19:09 06/10/24 19:30 Temperature 97.7 F Pulse Rate 133 H 124 H Respiratory Rate 24 31 H Blood Pressure 173/79 H 143/56 H Pulse Oximetry 96 89 L Oxygen Delivery Method Room Air Oxygen Flow Rate 06/10/24 19:30 06/10/24 20:00 06/10/24 20:00 Temperature Pulse Rate 114 H Respiratory Rate 23 Blood Pressure 151/72 H 175/74 H Pulse Oximetry 89 L Oxygen Delivery Method Oxygen Flow Rate 06/10/24 20:30 06/10/24 20:59 06/10/24 20:59 Temperature Pulse Rate 120 H 123 H Respiratory Rate 28 H 32 H Blood Pressure 171/75 H Pulse Oximetry 89 L 90 L Oxygen Delivery Method Oxygen Flow Rate 06/10/24 21:00 06/10/24 21:30 06/10/24 22:00 Temperature Pulse Rate 122 H 128 H Respiratory Rate 46 H 27 H Blood Pressure 166/74 H Pulse Oximetry 90 L 87 L Oxygen Delivery Method Nasal Cannula Oxygen Flow Rate 3 06/10/24 22:00 Temperature Pulse Rate 128 H Respiratory Rate 26 H Blood Pressure Pulse Oximetry 95 Oxygen Delivery Method Heated High Flow Oxygen Flow Rate 50 Medical Decision Making Medical Records Medical records reviewed: Yes I reviewed the patient's medical records. Lab Data Lab results reviewed: Yes I reviewed the patient's lab results. 06/10/24 19:27 06/10/24 19:27 Labs: Lab Results 06/10/24 06/10/24 06/10/24 Range/Units 19:25 19:27 19:27 WBC 20.1 H (4.5-11.0) X10^3/uL RBC 5.06 (4.5-5.9) X10^6/uL Hgb 11.1 L (13.5-17.5) g/dL Hct 36.0 L (41-53) % MCV 71.2 L (80-100) fL MCH 21.9 L (26-34) PG MCHC 30.7 (30-36) % RDW 19.1 H (11.6-14.8) % Plt Count 300 (150-400) X10^3/uL Neut % (Auto) 86.6 H (50-75) % Lymph % (Auto) 7.2 L (25-40) % Reynolds % (Auto) 5.9 (3-14) % Eos % (Auto) 0.0 L (2-4) % Baso % (Auto) 0.3 (0-2) % Neut # (Auto) 85415 H (8741-3707) /uL Lymph # (Auto) 1400 (0934-3175) /uL Reynolds # (Auto) 1200 H (0-900) /uL Eos # (Auto) 0 (0-450) /uL Baso # (Auto) 100 (0-100) /uL D-Dimer 650 H (<500) ng/ml Sodium 138 (137-145) mmol/L Potassium 4.4 (3.4-5.1) mmol/L Chloride 102 (98-107) mmol/L Carbon Dioxide 27 (22-32) mmol/L BUN 29 H (9-20) mg/dL Creatinine 0.86 (0.66-1.25) mg/dL Estimated GFR > 60 (>60) mL/min BUN/Creatinine Ratio 33.7 H (6-22) Glucose 169 H (70-100) mg/dL Lactate 1.7 (0.7-2.1) mmol/L Calcium 9.8 (8.4-10.2) mg/dL Total Bilirubin 0.3 (0.2-1.3) mg/dL AST 20 (17-59) IU/L ALT 25 (<50) IU/L Alkaline Phosphatase 97 (38-126) U/L Total Creatine Kinase 63 (55-170) U/L Troponin I Cancelled < 0.012 NT-Pro-B Natriuret Pep 62 (<125) pg/mL Total Protein 8.1 (6.3-8.2) g/dL Albumin 4.8 (3.5-5.0) g/dL Globulin 3.3 (1.7-4.1) g/dL Albumin/Globulin Ratio 1.5 (1.0-2.8) Procalcitonin 0.058 (<0.5) ng/mL Chlamy pneumoniae PCR Not detected (Not Detect) Adenovirus (PCR) Not detected (Not Detect) B. pertussis DNA (PCR) Not detected (Not Detect) B.parapertussis DNA PCR Not detected (Not Detecte) Coronavirus OC43 (PCR) Not detected (Not Detect) Coronavirus HKU1 (PCR) Not detected (Not Detect) Coronavirus 229E (PCR) Not detected (Not Detect) SARS-CoV-2 (PCR) Not detected (Not Detecte) Coronavirus NL63 (PCR) Not detected (Not Detect) Human Metapneumovir PCR Not detected (Not Detect) Influenza Type A (PCR) Not detected (Not Detect) Influenza Type B (PCR) Not detected (Not Detect) M. pneumoniae (PCR) Not detected (Not Detect) Parainfluenza 1 (PCR) Not detected (Not Detect) Parainfluenza 2 (PCR) Not detected (Not Detect) Parainfluenza 3 (PCR) Not detected (Not Detect) Parainfluenza 4 (PCR) Not detected (Not Detect) RSV (PCR) Not detected (Not Detect) Entero/Rhino (PCR) Not detected (Not Detect) Imaging Data Chest x-ray: Radiologist's Impression: PROCEDURE: XR CHEST 1V INDICATIONS: Shortness of breath TECHNIQUE: One view of the chest was acquired. COMPARISON: None. FINDINGS: Surgical changes and devices: None. Lungs and pleura: Increased interstitial markings may represent mild pulmonary edema. No focal dense airspace consolidation. No pleural effusions or pneumothorax. Mediastinum: Mediastinal contours appear normal. Heart size is normal. Bones and chest wall: No suspicious bony lesions. Overlying soft tissues appear unremarkable. IMPRESSION: Increased interstitial markings may represent mild pulmonary edema. No focal airspace consolidation. CT scan - chest: Radiologist's Impression: PROCEDURE: CT ANGIO CHEST PE PROTOCOL INDICATIONS: Chest pain, shortness of breath, tachycardia TECHNIQUE: After the administration of intravenous contrast, 2 mm thick sections acquired from the pulmonary apices to the posterior costophrenic angles. 3-dimensional maximum intensity projection (MIP) coronal and sagittal reformats were then acquired through the thorax. For radiation dose reduction, the following was used: automated exposure control, adjustment of mA and/or kV according to patient size. COMPARISON: [facility], CR, XR CHEST 1V, 06/10/2024, 19:03. FINDINGS: Image quality: Suboptimal; poor opacification of the pulmonary arteries, aortic and pulmonary venous contamination Thyroid: The thyroid gland is within normal limits. Cardiac: The heart size is within normal limits. There is no pericardial effusion. Aorta: The thoracic aortic diameter is within normal limits. There is no aneurysmal dilatation or dissection. Pulmonary Artery: The main pulmonary artery diameter is within normal limits. There is no aneurysmal dilatation in the main pulmonary trunk or left/right pulmonary arteries. There is no large filling defect in the main pulmonary trunk or saddle region. Further distal evaluation is limited due to suboptimal opacification. Lungs: Areas of multifocal , nodular opacification are present in the anterior segment of the right upper lobe, (6/137), right middle lobe (6/237), lingula (6/163), and bilateral lower lobes (6/236). Pleura: There is no pneumothorax or pleural effusion. Airways: The trachea and mainstem bronchi are patent. Bibasilar, deep and and bronchiolectasis is present (6/224). Lymph Nodes: Multiple , nonenlarged mediastinal nodes are present. A few calcified right hilar nodes are present, likely secondary to prior granulomatous disease or infection. Esophagus: Mildly dilated and patulous esophagus. Bones: There is no acute osseous abnormality. Upper Abdomen: The visualized upper abdomen is within normal limits. IMPRESSION: 1. No pulmonary embolism in the main pulmonary trunk. Further evaluation is limited due to technical factors. 2. Bilateral parenchymal opacification, slightly patulous esophagus, bibasilar bronchiolectasis, and multiple non-enlarged mediastinal nodes. These constellation of findings can be seen in the setting of aspiration pneumonia. Consider CT chest with contrast follow-up in 2-3 months following clinical resolution to confirm resolution of the radiographic abnormalities. ECG Data Attestation: I personally reviewed and interpreted this ECG as follows: Interpretation: Sinus tachycardia Ventricular rate 118 Normal axis Normal QRS No ST T wave changes MDM Narrative Medical decision making narrative: He was in moderate respiratory distress with a oxygen saturation in the mid upper 80s and tachypnea. He was placed on oxygen by nasal cannula which did improve his saturations however during his time in the emergency department he needed an increase in is respiratory support to the point where he was placed on high-flow nasal cannula. He was obviously anxious upon arrival and he admitted to being anxious. Was given Ativan for anxiolysis. His heart rate improved with this. Has a leukocytosis. Normal lactate. Not hypotensive. Blood cultures obtained. Does have an elevated D-dimer. CT scan shows more infectious etiology. No pulmonary embolism. Nonischemic EKG. Denies chest pain. Respiratory panel was negative. Initially patient was given a dose of azithromycin however once he required increasing respiratory support and the multifocal pneumonia on the chest x-ray he was also given a dose of Levaquin. He was multiple drug allergies which does limit his antibiotics somewhat. Given the fact that the patient now is requiring oxygen to maintain saturations admission to the hospital was warranted. Discussed the case with Dr. Smith hospitalist on-call who will admit. Discussed the need for admission with the patient. He expressed understanding and agreement as well. Critical Care Time Critical Care Time Critical Care Time: Yes Total Critical Care Time: 40 Attestation: The high probability of a clinically significant, sudden or life threatening deterioration of the [respiratory] system(s) required my full and direct attention, intervention and personal management. The aggregate critical care time was [40] minutes. This time is in addition to time spent performing reported procedures but includes the following: [x] Data Review and interpretation [x] Patient assessment and monitoring of vital signs [x] Documentation [x] Medication orders and management Discharge Plan Departure Patient Disposition: Admitted As Inpatient Clinical Impression: Pneumonia, Hypoxia, Tachycardia, Anxiety Admit Date/Time: 06/10/24 22:29 Admit Provider: Francisco Smith
[2024-06-10] MEDS: LORazepam 2 MG/ML INJ 1 MG IV (19:34)
[2024-06-10 19:39] LABS: Add Manual Diff / Slide Review NO; Basophils Absolute Auto 100 /uL (0-100); Basophils Percent Auto 0.3 % (0-2); Eosinophils Absolute Auto 0 /uL (0-450); Hemoglobin 11.1 g/dL (13.5-17.5); Lymphocytes Absolute Auto 1400 /uL (1100-4500); Lymphocytes Percent Auto 7.2 % (25-40); Mean Corpuscular HGB Conc 30.7 % (30-36); Mean Corpuscular Hemoglobin 21.9 PG (26-34); Mean Corpuscular Volume 71.2 fL (80-100); Monocytes Absolute Auto 1200 /uL (0-900); Monocytes Percent Auto 5.9 % (3-14); Neutrophils Absolute Auto 17400 /uL (1500-7000); Neutrophils Percent Auto 86.6 % (50-75); Platelet Count 300 X10^3/uL (150-400); Red Blood Cell Count 5.06 X10^6/uL (4.5-5.9); Red Cell Distribution Width 19.1 % (11.6-14.8); White Blood Cell Count 20.1 X10^3/uL (4.5-11.0)
[2024-06-10 19:50] LABS: D Dimer 650 ng/ml (<500)
[2024-06-10 19:52] LABS: Creatine Kinase 63 U/L (55-170)
[2024-06-10 19:58] LABS: Alanine Aminotransferase 25 IU/L (<50); Albumin 4.8 g/dL (3.5-5.0); Albumin Globulin Ratio 1.5 (1.0-2.8); Alkaline Phosphatase 97 U/L (38-126); Aspartate Aminotransferase 20 IU/L (17-59); BUN Creatinine Ratio 33.7 (6-22); Bilirubin Total 0.3 mg/dL (0.2-1.3); Blood Urea Nitrogen 29 mg/dL (9-20); Calcium 9.8 mg/dL (8.4-10.2); Carbon Dioxide 27 mmol/L (22-32); Chloride 102 mmol/L (98-107); Estimated Glomerular Filt Rate > 60 mL/min (>60); Globulin 3.3 g/dL (1.7-4.1); Glucose 169 mg/dL (70-100); HEMOLYSIS < 15 (0-50); Potassium 4.4 mmol/L (3.4-5.1); Sodium 138 mmol/L (137-145); Total Protein 8.1 g/dL (6.3-8.2)
[2024-06-10 20:05] LABS: Troponin I < 0.012 ng/mL (0.01-0.034)
[2024-06-10 20:06] LABS: NT-proBNP (BNP-Adult 18+) 62 pg/mL (<125)
[2024-06-10 20:12] LABS: Lactate (Lactic Acid) 1.7 mmol/L (0.7-2.1)
--- NOTE | 2024-06-10 20:13 | DI.CT.S_ITS ---
PROCEDURE: CT ANGIO CHEST PE PROTOCOL INDICATIONS: Chest pain, shortness of breath, tachycardia TECHNIQUE: After the administration of intravenous contrast, 2 mm thick sections acquired from the pulmonary apices to the posterior costophrenic angles. 3-dimensional maximum intensity projection (MIP) coronal and sagittal reformats were then acquired through the thorax. For radiation dose reduction, the following was used: automated exposure control, adjustment of mA and/or kV according to patient size. COMPARISON: [facility], CR, XR CHEST 1V, 06/10/2024, 19:03. FINDINGS: Image quality: Suboptimal; poor opacification of the pulmonary arteries, aortic and pulmonary venous contamination Thyroid: The thyroid gland is within normal limits. Cardiac: The heart size is within normal limits. There is no pericardial effusion. Aorta: The thoracic aortic diameter is within normal limits. There is no aneurysmal dilatation or dissection. Pulmonary Artery: The main pulmonary artery diameter is within normal limits. There is no aneurysmal dilatation in the main pulmonary trunk or left/right pulmonary arteries. There is no large filling defect in the main pulmonary trunk or saddle region. Further distal evaluation is limited due to suboptimal opacification. Lungs: Areas of multifocal , nodular opacification are present in the anterior segment of the right upper lobe, (6/137), right middle lobe (6/237), lingula (6/163), and bilateral lower lobes (6/236). Pleura: There is no pneumothorax or pleural effusion. Airways: The trachea and mainstem bronchi are patent. Bibasilar, deep and and bronchiolectasis is present (6/224). Lymph Nodes: Multiple , nonenlarged mediastinal nodes are present. A few calcified right hilar nodes are present, likely secondary to prior granulomatous disease or infection. Esophagus: Mildly dilated and patulous esophagus. Bones: There is no acute osseous abnormality. Upper Abdomen: The visualized upper abdomen is within normal limits. IMPRESSION: 1. No pulmonary embolism in the main pulmonary trunk. Further evaluation is limited due to technical factors. 2. Bilateral parenchymal opacification, slightly patulous esophagus, bibasilar bronchiolectasis, and multiple non-enlarged mediastinal nodes. These constellation of findings can be seen in the setting of aspiration pneumonia. Consider CT chest with contrast follow-up in 2-3 months following clinical resolution to confirm resolution of the radiographic abnormalities. Dictated by: Dash Fish M.D. on 06/10/2024 at 21:36 Approved by: Dash Fish M.D. on 06/10/2024 at 21:47
[2024-06-10 20:30] LABS: Procalcitonin 0.058 ng/mL (<0.5)
[2024-06-10 20:33] LABS: Adenovirus Not Detected (Not Detect); B. parapertussis Not Detected (Not Detecte); Bordetella pertussis Not Detected (Not Detect); Chlamydophila pneumoniae Not Detected (Not Detect); Coronavirus 229E Not Detected (Not Detect); Coronavirus HKU1 Not Detected (Not Detect); Coronavirus NL 63 Not Detected (Not Detect); Coronavirus OC43 Not Detected (Not Detect); Human Metapneumovirus Not Detected (Not Detect); Human Rhinovirus/Enterovirus Not Detected (Not Detect); Influenza A Not Detected (Not Detect); Influenza B Not Detected (Not Detect); Mycoplasma pneumoniae Not Detected (Not Detect); Parainfluenza Virus 1 Not Detected (Not Detect); Parainfluenza Virus 2 Not Detected (Not Detect); Parainfluenza Virus 3 Not Detected (Not Detect); Parainfluenza Virus 4 Not Detected (Not Detect); Respiratory Syncytial Virus Not Detected (Not Detect); SARS- CoV-2 Not Detected (Not Detecte)
[2024-06-10] MEDS: AZITHROMYCIN 500 MG in DEXTROSE 5% IN WATER 250 ML 250 MG IV (21:00)
[2024-06-10] MEDS: SODIUM CHLORIDE 0.9% 1,000 ML 1000 ML IV (21:01)
[2024-06-10] MEDS: levoFLOXacin 750 MG/150 ML PIGGYBACK 100 MG IV (22:03)
[2024-06-11] VITALS (16 sets, daily range): BP systolic 122–151; BP diastolic 63–77; PULSE 92–110; RESP 12–25; TEMP 36.4–38.1; O2SAT 93–100
[2024-06-11] MEDS: OXYCODONE/ACETAMINOPHEN 5/325 TABLET 2 TAB PO ×4 (00:40→21:10)
[2024-06-11] MEDS: GABAPENTIN 600 MG TABLET 1200 MG PO ×3 (00:58→21:11)
--- NOTE | 2024-06-11 01:18 | PM.HP.1 ---
History of Present Illness History of Present Illness Chief complaint: SOB Narrative: 54 year old with past medical history of HTN, HLD, Asthma and BPH presents with complaints of shortness of breath. Per the patient's report, the patient started to have worsening shortness of breath since yesterday. The patient reports of a productive cough though he was not able to bring much up. The patient denies any chest pain, fever, chills, nausea, vomiting or diarrhea. In our ER, the patient was requiring high flow 50% FiO2. The patient WBC was 20 and D dimer was slightly elevated. CTA chest did not shows PE but did show findinng suggestive of possible aspiration pneumonia. The patient was given IV Levaquin and nebs. 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 Iron deficiency anemia Chronic pain syndrome Cervical stenosis of spinal canal Hypertension Hyperlipidemia Varicose vein of leg Myocarditis Surgical History No pertinent past surgical history Social History (System 04/04/18 @ 15:39 by Billy Ramos) household members: significant other Smoking Status: Current every day smoker Meds Home Medications and Allergies Home Medications Medication Instructions Recorded Confirmed Type epinephrine 0.3 mg/0.3 mL 0.3 mg (0.3 mL) IM SEE 07/17/19 06/10/24 Rx injection, auto-injector (EpiPen INSTRUCTIONS #2 ea 2-Nura) dapagliflozin propanediol [Farxiga] 10 mg PO DAILY 10/07/23 06/10/24 History ferrous gluconate 324 mg (37.5 mg 324 mg PO DAILY #90 tabs 11/23/23 06/10/24 Rx iron) tablet spironolactone 25 mg tablet 25 mg PO BID 12/28/23 06/10/24 History benralizumab 30 mg/mL subcutaneous 30 mg SUBCUT Q8W 12 months #1 mL 01/05/24 06/10/24 Rx auto-injector (Fasenra Pen) beclomethasone dipropionate 80 See Rx Instructions .Route 02/11/24 06/10/24 Rx mcg/actuation HFA breath activated .COMPLEX #10.6 grams aerosol (Qvar RediHaler) losartan 100 mg tablet 100 mg PO DAILY #90 tabs 02/11/24 06/10/24 Rx albuterol sulfate 90 mcg/actuation See Rx Instructions .Route 03/20/24 06/10/24 Rx aerosol inhaler .COMPLEX #8.5 grams tiotropium bromide 18 mcg capsule See Rx Instructions .Route 05/17/24 06/10/24 Rx with inhalation device (Spiriva .COMPLEX #30 caps with HandiHaler) fentanyl 12 mcg/hr transdermal 1 patch transdermal Q96H #5 ea 05/25/24 06/10/24 Rx patch glimepiride 4 mg tablet 8 mg (2 x 4 mg) PO BID #120 tabs 05/31/24 06/10/24 Rx amlodipine 10 mg tablet 10 mg PO DAILY 06/10/24 06/10/24 History cyclobenzaprine 10 mg tablet 10 mg PO TID 06/10/24 06/10/24 History diazepam 5 mg tablet 5 mg PO Q OTHER DAY 06/10/24 06/10/24 History finasteride 5 mg tablet 5 mg PO DAILY 06/10/24 06/10/24 History furosemide 40 mg tablet See Rx Instructions .Route 06/10/24 06/10/24 History .COMPLEX PRN Swelling gabapentin 600 mg tablet 1,200 mg PO BID 06/10/24 06/10/24 History metformin 500 mg tablet See Rx Instructions .Route .COMPLEX 06/10/24 06/10/24 History mometasone-formoterol HFA 200 See Rx Instructions .Route 06/10/24 06/10/24 Rx mcg-5 mcg/actuation aerosol .COMPLEX #13 grams inhaler (Dulera) oxycodone-acetaminophen 10 mg-325 10 - 325 tab PO Q4-5H PRN pain 06/10/24 06/10/24 History mg tablet (Percocet) prednisone 10 mg tablet 10 mg PO BEDTIME 06/10/24 06/10/24 History Allergies Allergy/AdvReac Type Severity Reaction Status Date / Time Cephalosporins Allergy Severe ANAPHYLAXIS Verified 05/01/24 13:25 [CEPHALOSPORINS] Penicillins [PENICILLINS] Allergy Severe ANAPHYLAXIS Verified 05/01/24 13:25 cephalexin [CEPHALEXIN] Allergy Mild FACIAL Verified 05/01/24 13:25 SWELLING doxycycline [DOXYCYCLINE] Allergy Mild HIVES Verified 05/01/24 13:25 terbinafine [TERBINAFINE] Allergy Unknown Verified 05/01/24 13:25 nut - unspecified Allergy Verified 05/01/24 13:25 Beta-Blockers AdvReac Mild ASTHMA Verified 05/01/24 13:25 (Beta-Adrenergic Bloc nadolol [NADOLOL] AdvReac Mild AGGREVATES Verified 05/01/24 13:25 ASTHMA Sulfa (Sulfonamide AdvReac Mild VOMITING Verified 05/01/24 13:25 Antibiotics) [SULFA (SULFONAMIDE ANTIBIOTICS)] Review of Systems Review of Systems ROS: Yes All systems reviewed with the patient and are negative except as otherwise documented Exam Vital Signs (past 8 hours): - 06/10/24 19:00 06/10/24 19:01 06/10/24 19:01 Temperature Pulse Rate 128 H 130 H Respiratory Rate Blood Pressure 173/79 H Pulse Oximetry 89 L 91 Oxygen Delivery Method Oxygen Flow Rate Fraction of Inspired Oxygen 06/10/24 19:03 06/10/24 19:09 06/10/24 19:30 Temperature 97.7 F Pulse Rate 133 H 124 H Respiratory Rate 24 31 H Blood Pressure 173/79 H 143/56 H Pulse Oximetry 96 89 L Oxygen Delivery Method Room Air Oxygen Flow Rate Fraction of Inspired Oxygen 06/10/24 19:30 06/10/24 20:00 06/10/24 20:00 Temperature Pulse Rate 114 H Respiratory Rate 23 Blood Pressure 151/72 H 175/74 H Pulse Oximetry 89 L Oxygen Delivery Method Oxygen Flow Rate Fraction of Inspired Oxygen 06/10/24 20:30 06/10/24 20:59 06/10/24 20:59 Temperature Pulse Rate 120 H 123 H Respiratory Rate 28 H 32 H Blood Pressure 171/75 H Pulse Oximetry 89 L 90 L Oxygen Delivery Method Oxygen Flow Rate Fraction of Inspired Oxygen 06/10/24 21:00 06/10/24 21:30 06/10/24 22:00 Temperature Pulse Rate 122 H 128 H Respiratory Rate 46 H 27 H Blood Pressure 166/74 H Pulse Oximetry 90 L 87 L Oxygen Delivery Method Nasal Cannula Oxygen Flow Rate 3 Fraction of Inspired Oxygen 06/10/24 22:00 06/10/24 22:30 06/10/24 22:35 Temperature Pulse Rate 128 H 118 H Respiratory Rate 26 H 17 Blood Pressure Pulse Oximetry 95 96 Oxygen Delivery Method Heated High Flow Heated High Flow Oxygen Flow Rate 50 Fraction of Inspired Oxygen 06/10/24 23:48 Temperature 99.8 F H Pulse Rate 118 H Respiratory Rate 24 Blood Pressure 124/76 Pulse Oximetry 100 Oxygen Delivery Method Oxygen Flow Rate 50 Fraction of Inspired Oxygen 50 Fraction of Inspired Oxygen 50 Oxygen Delivery Method Heated High Flow Oxygen Flow Rate 50 Objective Labs 06/10/24 19:27 06/10/24 19:27 Labs: Laboratory Results - last 24 hr 06/10/24 06/10/24 06/10/24 19:25 19:27 19:27 WBC 20.1 H RBC 5.06 Hgb 11.1 L Hct 36.0 L MCV 71.2 L MCH 21.9 L MCHC 30.7 RDW 19.1 H Plt Count 300 Neut % (Auto) 86.6 H Lymph % (Auto) 7.2 L [place] % (Auto) 5.9 Eos % (Auto) 0.0 L Baso % (Auto) 0.3 Neut # (Auto) 60853 H Lymph # (Auto) 1400 [place] # (Auto) 1200 H Eos # (Auto) 0 Baso # (Auto) 100 D-Dimer 650 H Sodium 138 Potassium 4.4 Chloride 102 Carbon Dioxide 27 BUN 29 H Creatinine 0.86 Estimated GFR > 60 BUN/Creatinine Ratio 33.7 H Glucose 169 H Lactate 1.7 Calcium 9.8 Total Bilirubin 0.3 AST 20 ALT 25 Alkaline Phosphatase 97 Total Creatine Kinase 63 Troponin I Cancelled < 0.012 NT-Pro-B Natriuret Pep 62 Total Protein 8.1 Albumin 4.8 Globulin 3.3 Albumin/Globulin Ratio 1.5 Procalcitonin 0.058 Chlamy pneumoniae PCR Not detected Adenovirus (PCR) Not detected B. pertussis DNA (PCR) Not detected B.parapertussis DNA PCR Not detected Coronavirus OC43 (PCR) Not detected Coronavirus HKU1 (PCR) Not detected Coronavirus 229E (PCR) Not detected SARS-CoV-2 (PCR) Not detected Coronavirus NL63 (PCR) Not detected Human Metapneumovir PCR Not detected Influenza Type A (PCR) Not detected Influenza Type B (PCR) Not detected M. pneumoniae (PCR) Not detected Parainfluenza 1 (PCR) Not detected Parainfluenza 2 (PCR) Not detected Parainfluenza 3 (PCR) Not detected Parainfluenza 4 (PCR) Not detected RSV (PCR) Not detected Entero/Rhino (PCR) Not detected Assessment & Plan Assessment & Plan narrative: Aspiration pneumonia. Admit to medical telemetry. NPO. IVF. Swallow evaluation and continue IV Levaquin. Possible asthma exacerbation. Likely triggered by above. Treat as above and also will give IV solumedrol and nebs. Acute respiratory failure with hypoxemia. Likely from above. Currently on 50% high flow FiO2. Treat as above and wean down O2 as able. NIDDM. Hold home Metformin. SQ insulin for now. HTN. Monitor BP and resume home medicaitons accordingly. DVT PPx Lovenox Code status full code Disposition home in 2-3 days Time-Based Coding :: [TOTAL MINUTES] spent with patient and on the chart (including review of chart, obtaining history, exam, reviewing outside data, placing orders, documenting exam and treatment plan, and counseling patient) on [DATE].
[2024-06-11] MEDS: CYCLOBENZAPRINE 10 MG TABLET PO (01:25)
--- NOTE | 2024-06-11 02:25 | PC.NURSE ---
Addendum entered by Oly López R.N. 06/11/24 05:00: Notified RT of SpO2 at 100%, titrating FiO2 until O2 target goal reached. Original Note: surveillance dual rate officer: Patient arrived @ approximately 2300 via wheelchair, able to ambulate with 1 PA & FWW. Patient is AxOx4, tachycardic at rest (HR 120's), MD notified. Denies chest pain. Cont tele placed. SpO2 in mid-high 90's on heated hi-flow. Reports that breathing has improved. Requesting pain medications for 04/22 chronic back pain. MD Smith spoke with patient, patient placed on NPO for speech eval in morning. Ice chips & meds with sips of water OK per MD. Patient sitting in chair rather than bed as requested, typically sleeps in recliner at home. Oriented to call-light, agrees to call when needing to get out of chair. Plan of care ongoing.
[2024-06-11 06:04] LABS: Add Manual Diff / Slide Review NO; Basophils Absolute Auto 0 /uL (0-100); Basophils Percent Auto 0.1 % (0-2); Eosinophils Absolute Auto 0 /uL (0-450); Hematocrit 35.9 % (41-53); Lymphocytes Absolute Auto 1800 /uL (1100-4500); Lymphocytes Percent Auto 8.3 % (25-40); Mean Corpuscular HGB Conc 30.5 % (30-36); Mean Corpuscular Hemoglobin 21.9 PG (26-34); Mean Corpuscular Volume 71.8 fL (80-100); Monocytes Absolute Auto 2200 /uL (0-900); Monocytes Percent Auto 9.9 % (3-14); Neutrophils Absolute Auto 18000 /uL (1500-7000); Neutrophils Percent Auto 81.7 % (50-75); Platelet Count 235 X10^3/uL (150-400); Red Blood Cell Count 5.01 X10^6/uL (4.5-5.9); Red Cell Distribution Width 18.3 % (11.6-14.8)
[2024-06-11 06:10] LABS: BUN Creatinine Ratio 25.9 (6-22); Blood Urea Nitrogen 21 mg/dL (9-20); Carbon Dioxide 26 mmol/L (22-32); Chloride 103 mmol/L (98-107); Estimated Glomerular Filt Rate > 60 mL/min (>60); Glucose 131 mg/dL (70-100); HEMOLYSIS < 15 (0-50); Potassium 4.4 mmol/L (3.4-5.1); Sodium 136 mmol/L (137-145)
[2024-06-11] MEDS: OXYCODONE/ACETAMINOPHEN 5/325 TABLET 1 TAB PO (06:40)
[2024-06-11] MEDS: OXYCODONE IR 5 MG TABLET PO (06:40)
[2024-06-11] MEDS: BUDESONIDE 0.5 MG/2 ML NEB INH ×2 (07:18→19:18)
[2024-06-11] MEDS: ALBUTEROL/IPRATROPIUM 3 ML AMPUL INH ×4 (07:18→23:13)
[2024-06-11] MEDS: OXYCODONE IR 10 MG TABLET PO ×4 (07:49→21:32)
[2024-06-11] MEDS: LOSARTAN 50 MG TABLET 100 MG PO (10:02)
[2024-06-11] MEDS: FERROUS SULFATE 325 MG TABLET PO (10:02)
[2024-06-11] MEDS: AMLODIPINE 5 MG TABLET 10 MG PO (10:02)
[2024-06-11] MEDS: SPIRONOLACTONE 25 MG TABLET PO ×2 (10:02→21:11)
[2024-06-11] MEDS: NICOTINE 14 PATCH 14 MG TOP (10:03)
[2024-06-11] MEDS: FINASTERIDE 5 MG TABLET PO (10:03)
[2024-06-11] MEDS: ENOXAPARIN 40 MG/0.4 ML SYRINGE SUBCUT ×2 (10:03→21:09)
[2024-06-11] MEDS: fentaNYL 12 MCG/PATCH TOP (10:04)
--- NOTE | 2024-06-11 11:01 | P.PN_ITS ---
Subjective Subjective Date Patient Seen: 06/11/24 Time Patient Seen: 07:40 Interval history: 54 year old with past medical history of HTN, HLD, Asthma and BPH presents with complaints of shortness of breath. Per the patient's report, the patient started to have worsening shortness of breath since yesterday. The patient reports of a productive cough though he was not able to bring much up. The patient denies any chest pain, fever, chills, nausea, vomiting or diarrhea. In our ER, the patient was requiring high flow 50% FiO2. The patient WBC was 20 and D dimer was slightly elevated. CTA chest did not shows PE but did show findinng suggestive of possible aspiration pneumonia. The patient was given IV Levaquin and nebs. Interval history: The patient states he is comfortable. He remains on high- flow oxygen. He denies episodes of aspiration, difficulty swallowing or excessive sedation. He has been on a stable regimen of chronic opioids for many years. He did have a coughing spell about 4 days ago when he had a small amount of water go down ?the wrong tube?, but says this resolved within 2 or 3 minutes and he felt fine afterwards until he developed symptoms he yesterday. He notes he has had several episodes of pneumonia in the past but none that have required hospitalization or oxygen. Exam Vital Signs (past 8 hours): - 06/11/24 04:45 06/11/24 05:01 06/11/24 06:21 Temperature 98.6 F Pulse Rate 92 H 92 H Respiratory Rate 20 20 Blood Pressure 151/77 H 151/77 H Pulse Oximetry 100 93 93 Oxygen Delivery Method Oxygen Flow Rate 50 50 Fraction of Inspired Oxygen 40 28 06/11/24 07:00 06/11/24 07:18 06/11/24 07:32 Temperature Pulse Rate 101 H 101 H Respiratory Rate 20 20 Blood Pressure 151/77 H Pulse Oximetry 97 97 Oxygen Delivery Method Heated High Flow Heated High Flow Oxygen Flow Rate Fraction of Inspired Oxygen 28 06/11/24 09:00 06/11/24 10:02 Temperature 97.6 F Pulse Rate 105 H 101 H Respiratory Rate 25 H Blood Pressure 151/77 H 151/77 H Pulse Oximetry 95 Oxygen Delivery Method Oxygen Flow Rate 50 Fraction of Inspired Oxygen 28 Fraction of Inspired Oxygen 28 SaO2/FiO2 Ratio 346 Oxygen Delivery Method Heated High Flow Oxygen Flow Rate 50 Narrative Exam Narrative: GENERAL: This is a pleasant obese male patient, high-flow oxygen in place, speaking 4-5 words between breath, no accessory muscle use. EYES: Pupils equal round and reactive. Extraocular motions intact. No scleral icterus. No injection or drainage. ENT: Mucous membranes pink and moist. NECK: Trachea midline. No JVD, bruits or lymphadenopathy. Supple, nontender, no meningeal signs. CARDIOVASCULAR: Regular rate and rhythm without murmurs, gallops, or rubs. RESPIRATORY: Decreased breath sounds and rhonchi bilateral bases. GASTROINTESTINAL: Abdomen soft, non-tender, nondistended. EXTREMITIES: Trace edema, with mild left leg chronic dependent rubor. NEUROLOGIC: Alert, oriented, speech fluent, full upper and lower motor strength, no focal deficits evident. DERMATOLOGIC: No rashes or skin lesions. Objective ECG Impression: Sinus tachycardia at 118bpm, no ischemic changes Imaging Chest x-ray: Radiologist's impression: Increased interstitial markings may represent mild pulmonary edema. No focal airspace consolidation. CT scan - chest: Radiologist's impression: 1. No pulmonary embolism in the main pulmonary trunk. Further evaluation is limited due to technical factors. 2. Bilateral parenchymal opacification, slightly patulous esophagus, bibasilar bronchiolectasis, and multiple non-enlarged mediastinal nodes. These constellation of findings can be seen in the setting of aspiration pneumonia. Consider CT chest with contrast follow-up in 2-3 months following clinical resolution to confirm resolution of the radiographic abnormalities. Labs 06/11/24 04:50 06/11/24 04:50 Labs: Laboratory Results - last 24 hr 06/10/24 06/10/24 06/10/24 19:25 19:27 19:27 WBC 20.1 H RBC 5.06 Hgb 11.1 L Hct 36.0 L MCV 71.2 L MCH 21.9 L MCHC 30.7 RDW 19.1 H Plt Count 300 Neut % (Auto) 86.6 H Lymph % (Auto) 7.2 L [place] % (Auto) 5.9 Eos % (Auto) 0.0 L Baso % (Auto) 0.3 Neut # (Auto) 54439 H Lymph # (Auto) 1400 [place] # (Auto) 1200 H Eos # (Auto) 0 Baso # (Auto) 100 D-Dimer 650 H Sodium 138 Potassium 4.4 Chloride 102 Carbon Dioxide 27 BUN 29 H Creatinine 0.86 Estimated GFR > 60 BUN/Creatinine Ratio 33.7 H Glucose 169 H Lactate 1.7 Calcium 9.8 Total Bilirubin 0.3 AST 20 ALT 25 Alkaline Phosphatase 97 Total Creatine Kinase 63 Troponin I Cancelled < 0.012 NT-Pro-B Natriuret Pep 62 Total Protein 8.1 Albumin 4.8 Globulin 3.3 Albumin/Globulin Ratio 1.5 Procalcitonin 0.058 Chlamy pneumoniae PCR Not detected Adenovirus (PCR) Not detected B. pertussis DNA (PCR) Not detected B.parapertussis DNA PCR Not detected Coronavirus OC43 (PCR) Not detected Coronavirus HKU1 (PCR) Not detected Coronavirus 229E (PCR) Not detected SARS-CoV-2 (PCR) Not detected Coronavirus NL63 (PCR) Not detected Human Metapneumovir PCR Not detected Influenza Type A (PCR) Not detected Influenza Type B (PCR) Not detected M. pneumoniae (PCR) Not detected Parainfluenza 1 (PCR) Not detected Parainfluenza 2 (PCR) Not detected Parainfluenza 3 (PCR) Not detected Parainfluenza 4 (PCR) Not detected RSV (PCR) Not detected Entero/Rhino (PCR) Not detected 06/11/24 04:50 WBC 22.0 H RBC 5.01 Hgb 11.0 L Hct 35.9 L MCV 71.8 L MCH 21.9 L MCHC 30.5 RDW 18.3 H Plt Count 235 Neut % (Auto) 81.7 H Lymph % (Auto) 8.3 L [place] % (Auto) 9.9 Eos % (Auto) 0.0 L Baso % (Auto) 0.1 Neut # (Auto) 82865 H Lymph # (Auto) 1800 [place] # (Auto) 2200 H Eos # (Auto) 0 Baso # (Auto) 0 D-Dimer Sodium 136 L Potassium 4.4 Chloride 103 Carbon Dioxide 26 BUN 21 H Creatinine 0.81 Estimated GFR > 60 BUN/Creatinine Ratio 25.9 H Glucose 131 H Lactate Calcium 9.0 Total Bilirubin AST ALT Alkaline Phosphatase Total Creatine Kinase Troponin I NT-Pro-B Natriuret Pep Total Protein Albumin Globulin Albumin/Globulin Ratio Procalcitonin Chlamy pneumoniae PCR Adenovirus (PCR) B. pertussis DNA (PCR) B.parapertussis DNA PCR Coronavirus OC43 (PCR) Coronavirus HKU1 (PCR) Coronavirus 229E (PCR) SARS-CoV-2 (PCR) Coronavirus NL63 (PCR) Human Metapneumovir PCR Influenza Type A (PCR) Influenza Type B (PCR) M. pneumoniae (PCR) Parainfluenza 1 (PCR) Parainfluenza 2 (PCR) Parainfluenza 3 (PCR) Parainfluenza 4 (PCR) RSV (PCR) Entero/Rhino (PCR) PFSH Medical History 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 Iron deficiency anemia Chronic pain syndrome Cervical stenosis of spinal canal Hypertension Hyperlipidemia Varicose vein of leg Myocarditis Surgical History No pertinent past surgical history Social History household members: significant other Smoking Status: Current every day smoker Assessment & Plan Assessment & Plan narrative: 1. Community-acquired pneumonia. Unlikely aspiration pneumonia despite radiographic impression. Admit to medical telemetry. Monitor for recurrent hypoxemia and consider swallowing evaluation if aspiration suspected clinically. Continue IV Levaquin. 2. Possible asthma exacerbation. Likely triggered by above. Treat as above and also will continue IV solumedrol and nebs. 3. Acute respiratory failure with hypoxemia. Likely from above. Currently on 50% high flow FiO2. Treat as above and wean down O2 as able. 4. NIDDM. Hold home Metformin. SQ insulin for now. 5. HTN. Monitor BP and resume home medicaitons accordingly. 6. DVT PPx Lovenox Plan: -IV antibiotics -IV steroids -oxygen -monitor clinically for evidence of aspiration, evaluate further as indicated -sliding scale insulin coverage -Lovenox -Code status full code. This is discussed with the patient and confirmed today. Disposition home in 2-3 days [facility] Charge codes Subsequent inpatient/observation care: [id number]
[2024-06-11] MEDS: INSULIN LISPRO 100 UNIT/ML 3ML VIAL SUBCUT ×3 (11:58→21:36)
--- NOTE | 2024-06-11 14:19 | CM.DANOTE ---
DCP Assessment note Pt is a 54yo M here with respiratory failure with pneumonia currently on IV abx, PCP Dr. Esme Edwards and Medicaid HYDRAULICS TEACHER reviewed EMR. pt on heated high flow oxygen. Per hospitalist in morning rounds, even though chest CT suggested it might be aspiration pneumonia, he thinks it is community-acquired pneumonia. Speech eval pending to confirm if any speech needs. likely here a few days. HYDRAULICS TEACHER met with pt in room. Pt confirms living with partner Silvestre ([phone]) in [place]. Is on chronic pain meds managed by PCP and is on disability. Denies any DCP/CM needs at this time. Anticipates home with partner to transport. P: anticipate home with partner to transport when stable and OP f/u. CM team will contact OP TCM team if needed closer to dc for f/u information. CM team will continue to follow closely OLIVER Caputo Discharge Planning/Care Management CM Discharge Assessment Start: 06/11/24 14:17 Freq: Status: Active Protocol: Document 06/11/24 14:17 (Rec: 06/11/24 14:19 [id number]) Discharge Planning Assessment Assigned Blanket Winder Operator OLIVER Fay DPOA/Assigned Designee Name Silvestre, partner Contact Information [phone] Advance Directives? No History Provided By Patient Prior Living Arrangements House Household Members significant other Independent with ADL's Yes Is patient alert and oriented? Yes Discharge Plan Home Referrals Initiated None needed Whiteboard Updated in Patient Room with Yes name and ext. # of Blanket Winder Operator Review Status In Process Please Provide Date Initial DC 06/11/24 Assessment Was Performed Next Review Type Continued Stay Review
[2024-06-11] MEDS: levoFLOXacin 500 MG/100 ML PIGGYBACK 100 MG IV (21:09)
[2024-06-11] MEDS: SODIUM CHLORIDE 0.9% FLUSH 10 ML IV (21:11)
[2024-06-11] MEDS: PANTOPRAZOLE DR 20 MG TABLET PO (21:21)
[2024-06-11] MEDS: diazePAM 5 MG TABLET PO (21:21)
[2024-06-12] VITALS: BP 118/61; PULSE 105; RESP 13; TEMP 36.6; O2SAT 97
[2024-06-12] MEDS: OXYCODONE/ACETAMINOPHEN 5/325 TABLET 2 TAB PO ×3 (01:40→09:36)
[2024-06-12] MEDS: OXYCODONE IR 10 MG TABLET PO ×3 (01:40→09:36)
[2024-06-12 04:00] VITALS: BP 121/71; PULSE 96; RESP 13; TEMP 36.6; O2SAT 97
[2024-06-12] MEDS: PANTOPRAZOLE DR 20 MG TABLET PO (05:35)
[2024-06-12 07:10] VITALS: PULSE 96; RESP 16; O2SAT 100
[2024-06-12] MEDS: ALBUTEROL/IPRATROPIUM 3 ML AMPUL INH (07:10)
[2024-06-12] MEDS: BUDESONIDE 0.5 MG/2 ML NEB INH (07:10)
[2024-06-12] MEDS: INSULIN LISPRO 100 UNIT/ML 3ML VIAL SUBCUT (07:59)
[2024-06-12 08:00] VITALS: BP 135/62; PULSE 95; RESP 12; TEMP 36.4; O2SAT 100
[2024-06-12] MEDS: INSULIN GLARGINE 100 UNIT/ML 3ML PEN 15 UNIT SUBCUT (08:00)
[2024-06-12 08:07] VITALS: BP 135/62; PULSE 101
[2024-06-12] MEDS: LOSARTAN 50 MG TABLET 100 MG PO (08:07)
[2024-06-12] MEDS: FERROUS SULFATE 325 MG TABLET PO (08:08)
[2024-06-12] MEDS: AMLODIPINE 5 MG TABLET 10 MG PO (08:08)
[2024-06-12] MEDS: GABAPENTIN 600 MG TABLET 1200 MG PO (08:08)
[2024-06-12] MEDS: SPIRONOLACTONE 25 MG TABLET PO (08:08)
[2024-06-12] MEDS: ENOXAPARIN 40 MG/0.4 ML SYRINGE SUBCUT (08:08)
[2024-06-12] MEDS: FINASTERIDE 5 MG TABLET PO (08:09)
[2024-06-12] MEDS: NICOTINE 14 PATCH 14 MG TOP (08:09)
[2024-06-12] MEDS: SODIUM CHLORIDE 0.9% FLUSH 10 ML IV (08:10)
[2024-06-12] MEDS: CYCLOBENZAPRINE 10 MG TABLET PO (08:17)
[2024-06-12] MEDS: polyethylene glycoL 3350 17 GM POWD.PACK PO (09:36)
--- NOTE | 2024-06-12 11:00 | P.DS_ITS ---
History of Present Illness History of Present Illness Chief complaint: SOB Narrative: From H&P: 54 year old with past medical history of HTN, HLD, Asthma and BPH presents with complaints of shortness of breath. Per the patient's report, the patient started to have worsening shortness of breath since yesterday. The patient reports of a productive cough though he was not able to bring much up. The patient denies any chest pain, fever, chills, nausea, vomiting or diarrhea. In our ER, the patient was requiring high flow 50% FiO2. The patient WBC was 20 and D dimer was slightly elevated. CTA chest did not shows PE but did show findinng suggestive of possible aspiration pneumonia. The patient was given IV Levaquin and nebs. Discharge Providers Provider Date of admission: 06/10/24 22:29 Discharge Date: 06/12/24 Primary care physician: Ricardo Victoria MD Consults: 06/11/24 01:20 Consult to Speech Therapy Evaluate & Treat Comment: Swallow eval due to concern of asp pneumonia Physician Instructions: Evaluate and treat Discharge provider: Tanner Kerr MD Summary Hospital Course Discharge Diagnosis: 1. Community-acquired pneumonia. Unlikely aspiration pneumonia despite radiographic impression. Present on admission and improved. 2. Possible asthma exacerbation. Present on admission and improved. 3. Acute respiratory failure with hypoxemia. Present on admission and resolved. 4. NIDDM. Hold home Metformin. SQ insulin for now. Present on admission and stable. 5. HTN. Monitor BP and resume home medicaitons accordingly. Present on admission and stable. 6. DVT PPx Lovenox Hospital Course: He was admitted for hypoxemia and pneumonia. He was treated with oxygen, and IV antibiotics. Rapidly came off from oxygen and in the morning of discharge felt at his baseline. He was also given prednisone 40 mg a day while in the hospital. He had no wheezing on exam in the day of discharge was able to speak and walk comfortably. Status at Discharge Cognitive/behavioral status at discharge: oriented Functional status at discharge: independent ambulation Overall status at discharge: patient is back to baseline Time Spent with Patient Time spent: Greater than 30 minutes Exam Vital Signs (past 8 hours): - 06/12/24 04:00 06/12/24 07:10 06/12/24 08:00 Temperature 97.8 F 97.5 F L Pulse Rate 96 H 96 H 95 H Respiratory Rate 13 16 12 Blood Pressure 121/71 135/62 Pulse Oximetry 97 100 100 Oxygen Delivery Method Room Air Oxygen Flow Rate 0 0 0 Fraction of Inspired Oxygen 21 06/12/24 08:07 Temperature Pulse Rate 101 H Respiratory Rate Blood Pressure 135/62 Pulse Oximetry Oxygen Delivery Method Oxygen Flow Rate Fraction of Inspired Oxygen Fraction of Inspired Oxygen 21 SaO2/FiO2 Ratio 476 Oxygen Delivery Method Room Air Oxygen Flow Rate 0 Narrative Exam Narrative: NAD, alert and oriented. Fluent speech. Lungs are clear, normal rate and effort. Heart is regular, no murmur gallop or rub. Abdomen is soft, non distended. Extremities are free of edema. Objective Imaging Multiple studies:: Radiologist's impression: Chest x-ray: Increased interstitial markings may represent mild pulmonary edema. No focal airspace consolidation. Chest CTA:. No pulmonary embolism in the main pulmonary trunk. Further evaluation is limited due to technical factors. 2. Bilateral parenchymal opacification, slightly patulous esophagus, bibasilar bronchiolectasis, and multiple non-enlarged mediastinal nodes. These constellation of findings can be seen in the setting of aspiration pneumonia. Consider CT chest with contrast follow-up in 2-3 months following clinical resolution to confirm resolution of the radiographic abnormalities. 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 Community-acquired pneumonia. Unlikely aspiration pneumonia despite radiographic impression. Present on admission and improved. 2. Possible asthma exacerbation. Present on admission and improved. 3. Acute respiratory failure with hypoxemia. Present on admission and resolved. 4. NIDDM. Hold home Metformin. SQ insulin for now. Present on admission and stable. 5. HTN. Monitor BP and resume home medicaitons accordingly. Present on admission and stable. 6. DVT PPx Lovenox Plan of Treatment: Stable for discharge home with ongoing antibiotics for total of 5 days and prednisone 40 mg daily for a total of 5 days. Discharge Plan Discharge Plan Patient Disposition: Home Provider Discharge Comment: Stable for discharge home, on room air. Follow up PCP within 6 days, 5 days of antibiotics will be completed as well as 5 days of prednisone. He was also given DuoNebs per his request. Discharge orders & Medications Prescriptions: New ipratropium-albuterol 0.5 mg-3 mg(2.5 mg base)/3 mL Solution For Nebulization 3 ml INH [id number] PRN (Reason: Shortness Of Breath) Qty: 120 2RF levofloxacin 750 mg tablet 750 mg PO DAILY Qty: 4 0RF prednisone 20 mg tablet 40 mg PO DAILY Qty: 10 0RF nicotine [Nicoderm CQ] 14 mg/24 hr patch 24 hour 1 patch transdermal DAILY Qty: 14 2RF Continued Qvar RediHaler 80 mcg/actuation HFA aerosol breath activated See Rx Instructions .ROUTE .COMPLEX Qty: 10.6 3RF Dose Instruction: inhale 1 puff by mouth every 12 hours Rx Instructions: inhale 1 puff by mouth every 12 hours losartan 100 mg tablet 100 mg PO DAILY Qty: 90 3RF albuterol sulfate 90 mcg/actuation HFA aerosol inhaler See Rx Instructions .ROUTE .COMPLEX Qty: 8.5 5RF Dose Instruction: inhale 2 puffs by mouth every 6 hours if needed for shortness of breath or wheezing Rx Instructions: inhale 2 puffs by mouth every 6 hours if needed for shortness of breath or wheezing Spiriva with HandiHaler 18 mcg capsule, w/inhalation device See Rx Instructions .ROUTE .COMPLEX Qty: 30 3RF Dose Instruction: inhale THE contents of 1 capsule in THE HANDIHALER once daily Rx Instructions: inhale THE contents of 1 capsule in THE HANDIHALER once daily fentanyl 12 mcg/hr patch 72 hour 1 patch transdermal Q96H Qty: 5 0RF Rx Instructions: Q4days glimepiride 4 mg tablet 8 mg PO BID Qty: 120 0RF Dulera 200-5 mcg/actuation HFA aerosol inhaler See Rx Instructions .ROUTE .COMPLEX Qty: 13 6RF Dose Instruction: inhale 2 puffs by mouth and INTO THE LUNGS twice a day Rx Instructions: inhale 2 puffs by mouth and INTO THE LUNGS twice a day epinephrine [EpiPen 2-Nura] 0.3 mg/0.3 mL auto-injector 0.3 mg IM SEE INSTRUCTIONS Qty: 2 5RF spironolactone 25 mg tablet 25 mg PO BID dapagliflozin propanediol [Farxiga] 10 mg PO DAILY ferrous gluconate 324 mg (37.5 mg iron) tablet 324 mg PO DAILY Qty: 90 3RF cyclobenzaprine 10 mg tablet 10 mg PO TID Rx Instructions: take 1 tablet by mouth three times a day if needed for SPASM(S) furosemide 40 mg tablet See Rx Instructions .ROUTE .COMPLEX PRN (Reason: Swelling) Rx Instructions: 1-2 tabs as needed for swelling metformin 500 mg tablet See Rx Instructions .ROUTE .COMPLEX Rx Instructions: take 2 tablets by mouth twice a day with meals prednisone 10 mg tablet 10 mg PO BEDTIME gabapentin 600 mg tablet 1,200 mg PO BID oxycodone-acetaminophen [Percocet] 10-325 mg tablet 10 - 325 tab PO Q4-5H PRN (Reason: pain) Rx Instructions: take 2 tablets by mouth every 4 hours if needed for pain. amlodipine 10 mg tablet 10 mg PO DAILY Rx Instructions: take 1 tablet by mouth once daily finasteride 5 mg tablet 5 mg PO DAILY Rx Instructions: take 1 tablet by mouth once daily diazepam 5 mg tablet 5 mg PO Q OTHER DAY Rx Instructions: Take 1 tablet at bedtime as needed for sleep. to last 30 days Fasenra Pen 30 mg/mL auto-injector 30 mg SUBCUT Q8W 360 Days Qty: 1 6RF Rx Instructions: to start after 3 loading doses Follow up/Referrals: Ricardo Victoria MD [Primary Care Provider] - Diet/Activity/Treatments Diet: Carb-consistent/Diabetic Activity: As tolerated Skin/Wound/Dressing Care Report to your healthcare provider any signs of infection, such as:: chills, fever Visit Report/Discharge Packet Instructions: DI for Pneumonia -- Adult Stand Alone Forms: Patient Portal/API, Stroke Signs & Symptoms Discharge Data Primary Care Provider: Ricardo Victoria
--- NOTE | 2024-06-12 11:40 | PC.NURSE ---
Day shift: Discharge instructions gone over with patient. All questions answered, patient stated understanding. PIV and tele removed prior to d/c. All belongings with patient. This RN escorted patient to main entrance via wheelchair where his partner picked him up.
== END 2024-06-12 11:35 | disposition home or self-care (01) | DRG 139 ==
LOC: ED 22:12 → AC 22:30
PROVIDERS: Admitting Provider Internal Medicine; Emergency Provider Emergency Medicine; Family Provider Family Medicine; PCP Family Medicine; Referring Provider Emergency Medicine; Visit Provider Internal Medicine
DX: J18.9 Pneumonia, unspecified organism (principal); J96.01 Acute respiratory failure with hypoxia; J45.901 Unspecified asthma with (acute) exacerbation; E11.9 Type 2 diabetes mellitus without complications; I10 Essential (primary) hypertension; N40.0 Benign prostatic hyperplasia without lower urinary tract symptoms; D50.9 Iron deficiency anemia, unspecified; F17.200 Nicotine dependence, unspecified, uncomplicated; Z79.84 Long term (current) use of oral hypoglycemic drugs; Z79.891 Long term (current) use of opiate analgesic
CPT/HCPCS: 36415; 71045; 71275; 80048; 80053; 82550; 82962; 83605; 83880; 84145; 84484; 85025; 85379; 87040; 87070; 87077; 87186; 87205; 87633; 93005; 93010; 94640; 94762; 96365; 96367; 96375; 99285; 99291; J1650; J1815; J1956; J2060; J2919; Q9967

== ENCOUNTER 2024-06-15 14:45 | Emergency (ER) | payer OTHER, MEDICAID, SELFPAY ==
[2024-06-10 22:35] VITALS: BMI 43.0
[2024-06-15 14:54] VITALS: BP 144/74; PULSE 117; RESP 24; TEMP 37.2; O2SAT 97; BMI 42.7
--- NOTE | 2024-06-15 14:59 | DI.RAD.S_ITS ---
PROCEDURE: XR CHEST 1V INDICATIONS: Shortness of breath TECHNIQUE: One view of the chest was acquired. COMPARISON: [facility], [place], XR CHEST 1V, 06/10/2024, 19:03. [facility], [place], CHEST 1 VIEW, 03/01/2017, 22:49. FINDINGS: Surgical changes and devices: None. Lungs and pleura: Opacity in the right mid and lower lung field consistent with pneumonia. No pleural effusions or pneumothorax. Mediastinum: Mediastinal contours appear normal. Heart size is normal. Bones and chest wall: No suspicious bony lesions. Overlying soft tissues appear unremarkable. IMPRESSION: Opacity in the right mid and lower lung field consistent with pneumonia. Recommend follow-up radiograph in 6-8 weeks to ensure resolution. Dictated by: Shlomo Coleman M.D. on 06/15/2024 at 16:13 Approved by: Shlomo Coleman M.D. on 06/15/2024 at 16:13
--- NOTE | 2024-06-15 15:31 | ED.SOB ---
HPI - SOB/Dyspnea General Chief Complaint: Shortness of Breath/Dyspnea Stated Complaint: diff breathing, fever 102 Time Seen by Provider: 06/15/24 15:25 Source: patient Mode of arrival: Ambulatory Limitations: no limitations History of Present Illness HPI Narrative: Patient is a 54-year-old male with a past medical history hypertension diabetes, presents to the emergency department for persistent shortness of breath fever. He states that he was recently seen and discharged from the hospital after being admitted for pneumonia a few days ago. States that he is completing his course of antibiotics for this pneumonia however today he noticed that he was having some shortness of breath again, noted a temperature of a 102? at home therefore decided come into the ED for further evaluation and treatment. He has not complaining of any other symptoms. Related Data Home Medications Medication Instructions Recorded Confirmed dapagliflozin propanediol [Farxiga] 10 mg PO DAILY 10/07/23 06/15/24 spironolactone 25 mg tablet 25 mg PO BID 12/28/23 06/15/24 amlodipine 10 mg tablet 10 mg PO DAILY 06/10/24 06/15/24 cyclobenzaprine 10 mg tablet 10 mg PO TID 06/10/24 06/15/24 diazepam 5 mg tablet 5 mg PO Q OTHER DAY 06/10/24 06/15/24 finasteride 5 mg tablet 5 mg PO DAILY 06/10/24 06/15/24 furosemide 40 mg tablet See Rx Instructions .Route 06/10/24 06/15/24 .COMPLEX PRN Swelling gabapentin 600 mg tablet 1,200 mg PO BID 06/10/24 06/15/24 metformin 500 mg tablet See Rx Instructions .Route .COMPLEX 06/10/24 06/15/24 oxycodone-acetaminophen 10 mg-325 10 - 325 tab PO Q4-5H PRN pain 06/10/24 06/15/24 mg tablet (Percocet) prednisone 10 mg tablet 10 mg PO BEDTIME 06/10/24 06/15/24 Previous Rx's Medication Instructions Recorded epinephrine 0.3 mg/0.3 mL 0.3 mg (0.3 mL) IM SEE 07/17/19 injection, auto-injector (EpiPen INSTRUCTIONS #2 ea 2-Nura) ferrous gluconate 324 mg (37.5 mg 324 mg PO DAILY #90 tabs 11/23/23 iron) tablet benralizumab 30 mg/mL subcutaneous 30 mg SUBCUT Q8W 12 months #1 mL 01/05/24 auto-injector (Fasenra Pen) losartan 100 mg tablet 100 mg PO DAILY #90 tabs 02/11/24 albuterol sulfate 90 mcg/actuation See Rx Instructions .Route 03/20/24 aerosol inhaler .COMPLEX #8.5 grams tiotropium bromide 18 mcg capsule See Rx Instructions .Route 05/17/24 with inhalation device (Spiriva .COMPLEX #30 caps with HandiHaler) glimepiride 4 mg tablet 8 mg (2 x 4 mg) PO BID #120 tabs 05/31/24 mometasone-formoterol HFA 200 See Rx Instructions .Route 06/10/24 mcg-5 mcg/actuation aerosol .COMPLEX #13 grams inhaler (Dulera) fentanyl 12 mcg/hr transdermal 1 patch transdermal Q96H #5 ea 06/12/24 patch ipratropium 0.5 mg-albuterol 3 mg 3 ml INH RTQ6HR PRN Shortness Of 06/12/24 (2.5 mg base)/3 mL nebulization Breath #120 doses soln levofloxacin 750 mg tablet 750 mg PO DAILY #4 tabs 06/12/24 nicotine 14 mg/24 hr daily 1 patch transdermal DAILY #14 ea 06/12/24 transdermal patch (Nicoderm CQ) prednisone 20 mg tablet 40 mg (2 x 20 mg) PO DAILY #10 tabs 06/12/24 beclomethasone dipropionate 80 See Rx Instructions .Route 06/13/24 mcg/actuation HFA breath activated .COMPLEX #10.6 grams aerosol (Qvar RediHaler) duloxetine 30 mg capsule,delayed 30 mg PO DAILY #90 caps 06/15/24 release levofloxacin 750 mg tablet 750 mg PO DAILY 5 days #5 tabs 06/15/24 varenicline 1 mg tablet (Chantix 1 mg PO BID #56 tabs 06/15/24 Continuing Month Box) Allergies Allergy/AdvReac Type Severity Reaction Status Date / Time cephalexin [CEPHALEXIN] Allergy Mild FACIAL Verified 06/15/24 08:26 SWELLING doxycycline [DOXYCYCLINE] Allergy Mild HIVES Verified 06/15/24 08:26 terbinafine [TERBINAFINE] Allergy Unknown Verified 06/15/24 08:26 nut - unspecified Allergy Verified 06/15/24 08:26 Cephalosporins AdvReac Intermediate Vomiting Verified 06/15/24 08:26 [CEPHALOSPORINS] Penicillins [PENICILLINS] AdvReac Intermediate Vomiting Verified 06/15/24 08:26 Beta-Blockers AdvReac Mild ASTHMA Verified 06/15/24 08:26 (Beta-Adrenergic Bloc nadolol [NADOLOL] AdvReac Mild AGGREVATES Verified 06/15/24 08:26 ASTHMA Sulfa (Sulfonamide AdvReac Mild VOMITING Verified 06/15/24 08:26 Antibiotics) [SULFA (SULFONAMIDE ANTIBIOTICS)] Review of Systems Review of Systems Narrative: General: Positive fever, denies chills, weight loss HEENT: Denies headache, eye drainage, eye irritation, head trauma, sore throat, voice change Cardiovascular: Denies any chest pain, palpitations, shortness of breath, tachycardia Respiratory: Positive shortness of breath, denies cough, wheeze, stridor GI/: Denies any abdominal pain, nausea, vomiting, diarrhea, bright red blood per rectum, melanotic stools, urinary frequency, urinary retention, dysuria, hematuria MSK: Denies any joint pain, muscle pains, swelling Skin: Denies any rashes, lesions, discoloration Neuro: Denies any headache, lightheadedness, dizziness, fainting, weakness Psych: Denies SI/HI Patient History Medical History 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 Iron deficiency anemia Chronic pain syndrome Cervical stenosis of spinal canal Hypertension Hyperlipidemia Varicose vein of leg Myocarditis Surgical History No pertinent past surgical history Social History household members: significant other Smoking Status: Current every day smoker Smoking Status: Current every day smoker tobacco type: cigarettes alcohol intake frequency: other Substance Use Type: does not use Exam Narrative Exam Narrative: General: Cooperative, comfortable, well-developed, not in acute distress HEENT: Normocephalic, atraumatic, PERRLA, normal sclera, eyelids normal, Neck: Active full range of motion, atraumatic Chest: Normal to inspection, negative crepitus, no overlying erythema ecchymosis Respiratory: Normal respiratory effort, not in acute respiratory distress, clear to auscultation bilaterally negative cough, wheeze, tachypnea, rhonchi, rales Cardiology: Regular rate rhythm negative gallop, murmur, rubs GI/: Normal to inspection, soft, nonrigid, no tenderness to palpation, exam deferred MSK: Full range of active range of motion of all 4 extremities, atraumatic Skin: No rashes lesions noted Neuro: Alert awake oriented x3, moves all 4 extremities spontaneously, cranial nerves intact, able to answer all questions appropriately follows commands appropriately Psych: Cooperative, negative suicidal or homicidal ideations Initial Vital Signs Initial Vital Signs: Vital Signs Temperature 98.9 F 06/15/24 14:54 Pulse Rate 117 H 06/15/24 14:54 Respiratory Rate 24 06/15/24 14:54 Blood Pressure 144/74 H 06/15/24 14:54 Pulse Oximetry 97 06/15/24 14:54 Oxygen Delivery Method Room Air 06/15/24 14:54 Scores CURB-65 Confusion: No BUN >19mg/dL (>7mmol/L): Yes Respiratory rate greater or equal to 30: No SBP <90mmHg or DBP less or equal to 60mmHg: No Age 65 or Older: No CURB-65 Total: 1 Score 0-1 Outpatient care, Score 2 Inpt vs. Obs, Score 3 or over Inpt admit with ICU for score of 4-5 Course Orders Ordered: ED Orders 06/15/24 14:59 XR chest 1V Stat EKG-12 Lead Stat Measure peak expiratory flow ONCE RT Consult Eval and Treat NOW 06/15/24 15:25 Complete Blood Count AUTO DIFF Stat Comprehensive Metabolic Panel Stat Lactate (Lactic Acid) Stat NT-proBNP (BNP-Adult 18+) Stat Prothrombin Time INR Stat Troponin I Stat Vital Signs Vital signs: Vital Signs - 8 hr 06/15/24 14:54 Temperature 98.9 F Pulse Rate 117 H Respiratory Rate 24 Blood Pressure 144/74 H Pulse Oximetry 97 Oxygen Delivery Method Room Air MDM - SOB/Dyspnea Differential Diagnosis Differential diagnosis: Likely congestive heart failure, community acquired pneumonia and other (Electrolyte abnormality,) Medical Records Attestation: I reviewed the patient's medical records. Lab Data Attestation: I reviewed the patient's lab results. 06/15/24 15:25 06/15/24 15:25 Labs: Lab Results 06/15/24 Range/Units 15:25 WBC 13.4 H (4.5-11.0) X10^3/uL RBC 4.45 L (4.5-5.9) X10^6/uL Hgb 9.7 L (13.5-17.5) g/dL Hct 31.3 L (41-53) % MCV 70.4 L (80-100) fL MCH 21.9 L (26-34) PG MCHC 31.1 (30-36) % RDW 18.7 H (11.6-14.8) % Plt Count 235 (150-400) X10^3/uL Neut % (Auto) 91.3 H (50-75) % Lymph % (Auto) 4.7 L (25-40) % Cherry % (Auto) 3.5 (3-14) % Eos % (Auto) 0.0 L (2-4) % Baso % (Auto) 0.5 (0-2) % Neut # (Auto) 40983 H (0587-3930) /uL Lymph # (Auto) 600 L (2007-1201) /uL Cherry # (Auto) 500 (0-900) /uL Eos # (Auto) 0 (0-450) /uL Baso # (Auto) 100 (0-100) /uL PT 12.6 H (9.4-12.5) SECONDS INR 1.1 (0.9-1.3) Sodium 134 L (137-145) mmol/L Potassium 4.8 (3.4-5.1) mmol/L Chloride 103 (98-107) mmol/L Carbon Dioxide 24 (22-32) mmol/L BUN 31 H (9-20) mg/dL Creatinine 0.86 (0.66-1.25) mg/dL Estimated GFR > 60 (>60) mL/min BUN/Creatinine Ratio 36.0 H (6-22) Glucose 328 H D (70-100) mg/dL Lactate 1.1 (0.7-2.1) mmol/L Calcium 9.4 (8.4-10.2) mg/dL Total Bilirubin 0.4 (0.2-1.3) mg/dL AST 21 (17-59) IU/L ALT 21 (<50) IU/L Alkaline Phosphatase 80 (38-126) U/L Troponin I < 0.012 (0.01-0.034) ng/mL NT-Pro-B Natriuret Pep 123 (<125) pg/mL Total Protein 7.4 (6.3-8.2) g/dL Albumin 4.1 (3.5-5.0) g/dL Globulin 3.3 (1.7-4.1) g/dL Albumin/Globulin Ratio 1.2 (1.0-2.8) Imaging Data Chest x-ray: Radiologist's Impression: PROCEDURE: XR CHEST 1V INDICATIONS: Shortness of breath TECHNIQUE: One view of the chest was acquired. COMPARISON: [facility], , XR CHEST 1V, 06/10/2024, 19:03. [facility], CR, CHEST 1 VIEW, 03/01/2017, 22:49. FINDINGS: Surgical changes and devices: None. Lungs and pleura: Opacity in the right mid and lower lung field consistent with pneumonia. No pleural effusions or pneumothorax. Mediastinum: Mediastinal contours appear normal. Heart size is normal. Bones and chest wall: No suspicious bony lesions. Overlying soft tissues appear unremarkable. IMPRESSION: Opacity in the right mid and lower lung field consistent with pneumonia. Recommend follow-up radiograph in 6-8 weeks to ensure resolution. [facility] Narrative Medical decision making narrative: Patient is a 54-year-old male who presented for shortness of breath fever after being discharged from this hospital for pneumonia. He had completed his antibiotic course yesterday. And noted that he was having shortness of breath again with fever therefore presented to the ED. at time of evaluation patient is afebrile not requiring any supplemental oxygen, well-appearing, nontoxic. Repeat lab work shows significant improvement of his leukocytosis on 06/11/2024 was 22 today it is 13.4. Chest x-ray was performed did show persistent pneumonia, patient with curb 65 score of 1, patient will be started on Levaquin for his pneumonia given allergies to multiple antibiotics. He was given strict return precautions he verbalized understanding of this and agrees to be discharged home with outpatient follow up. Discharge Plan Departure Patient Disposition: Home Clinical Impression: Pneumonia Activity Restrictions/Additional Instructions: Please read the discharge instructions sheet carefully and bring all papers to all doctor follow-up visits, as it may contain information that your doctor may want to see. Disease processes change and evolve, if your symptoms worsen or if you develop any new symptoms that are concerning to you please return for evaluation. Your evaluation today does not show any evidence of any life-threatening/serious illnesses requiring admission to the hospital or surgery. Please follow-up with your doctor for re-evaluation in approximately 1 day. Seek immediate medical attention for any worrisome symptoms. Prescriptions: New levofloxacin 750 mg tablet 750 mg PO DAILY 5 Days Qty: 5 0RF No Action losartan 100 mg tablet 100 mg PO DAILY Qty: 90 3RF albuterol sulfate 90 mcg/actuation HFA aerosol inhaler See Rx Instructions .ROUTE .COMPLEX Qty: 8.5 5RF Dose Instruction: inhale 2 puffs by mouth every 6 hours if needed for shortness of breath or wheezing Rx Instructions: inhale 2 puffs by mouth every 6 hours if needed for shortness of breath or wheezing Spiriva with HandiHaler 18 mcg capsule, w/inhalation device See Rx Instructions .ROUTE .COMPLEX Qty: 30 3RF Dose Instruction: inhale THE contents of 1 capsule in THE HANDIHALER once daily Rx Instructions: inhale THE contents of 1 capsule in THE HANDIHALER once daily glimepiride 4 mg tablet 8 mg PO BID Qty: 120 0RF Dulera 200-5 mcg/actuation HFA aerosol inhaler See Rx Instructions .ROUTE .COMPLEX Qty: 13 6RF Dose Instruction: inhale 2 puffs by mouth and INTO THE LUNGS twice a day Rx Instructions: inhale 2 puffs by mouth and INTO THE LUNGS twice a day fentanyl 12 mcg/hr patch 72 hour 1 patch transdermal Q96H Qty: 5 0RF Rx Instructions: Q4days Qvar RediHaler 80 mcg/actuation HFA aerosol breath activated See Rx Instructions .ROUTE .COMPLEX Qty: 10.6 3RF Dose Instruction: inhale 1 puff by mouth every 12 hours Rx Instructions: inhale 1 puff by mouth every 12 hours epinephrine [EpiPen 2-Nura] 0.3 mg/0.3 mL auto-injector 0.3 mg IM SEE INSTRUCTIONS Qty: 2 5RF spironolactone 25 mg tablet 25 mg PO BID dapagliflozin propanediol [Farxiga] 10 mg PO DAILY ferrous gluconate 324 mg (37.5 mg iron) tablet 324 mg PO DAILY Qty: 90 3RF duloxetine 30 mg capsule,delayed release(DR/EC) 30 mg PO DAILY Qty: 90 0RF varenicline [Chantix Continuing Month Box] 1 mg tablet 1 mg PO BID Qty: 56 0RF cyclobenzaprine 10 mg tablet 10 mg PO TID Rx Instructions: take 1 tablet by mouth three times a day if needed for SPASM(S) furosemide 40 mg tablet See Rx Instructions .ROUTE .COMPLEX PRN (Reason: Swelling) Rx Instructions: 1-2 tabs as needed for swelling metformin 500 mg tablet See Rx Instructions .ROUTE .COMPLEX Rx Instructions: take 2 tablets by mouth twice a day with meals prednisone 10 mg tablet 10 mg PO BEDTIME gabapentin 600 mg tablet 1,200 mg PO BID oxycodone-acetaminophen [Percocet] 10-325 mg tablet 10 - 325 tab PO Q4-5H PRN (Reason: pain) Rx Instructions: take 2 tablets by mouth every 4 hours if needed for pain. amlodipine 10 mg tablet 10 mg PO DAILY Rx Instructions: take 1 tablet by mouth once daily finasteride 5 mg tablet 5 mg PO DAILY Rx Instructions: take 1 tablet by mouth once daily diazepam 5 mg tablet 5 mg PO Q OTHER DAY Rx Instructions: Take 1 tablet at bedtime as needed for sleep. to last 30 days ipratropium-albuterol 0.5 mg-3 mg(2.5 mg base)/3 mL Solution For Nebulization 3 ml INH RTQ6HR PRN (Reason: Shortness Of Breath) Qty: 120 2RF levofloxacin 750 mg tablet 750 mg PO DAILY Qty: 4 0RF prednisone 20 mg tablet 40 mg PO DAILY Qty: 10 0RF nicotine [Nicoderm CQ] 14 mg/24 hr patch 24 hour 1 patch transdermal DAILY Qty: 14 2RF Fasenra Pen 30 mg/mL auto-injector 30 mg SUBCUT Q8W 360 Days Qty: 1 6RF Rx Instructions: to start after 3 loading doses Referrals: Ricardo Victoria MD [Primary Care Provider] - Stand Alone Forms: Patient Portal/API
[2024-06-15 15:34] LABS: Add Manual Diff / Slide Review NO; Basophils Absolute Auto 100 /uL (0-100); Basophils Percent Auto 0.5 % (0-2); Eosinophils Absolute Auto 0 /uL (0-450); Hematocrit 31.3 % (41-53); Hemoglobin 9.7 g/dL (13.5-17.5); Lymphocytes Absolute Auto 600 /uL (1100-4500); Lymphocytes Percent Auto 4.7 % (25-40); Mean Corpuscular HGB Conc 31.1 % (30-36); Mean Corpuscular Hemoglobin 21.9 PG (26-34); Mean Corpuscular Volume 70.4 fL (80-100); Monocytes Absolute Auto 500 /uL (0-900); Monocytes Percent Auto 3.5 % (3-14); Neutrophils Absolute Auto 12200 /uL (1500-7000); Neutrophils Percent Auto 91.3 % (50-75); Platelet Count 235 X10^3/uL (150-400); Red Blood Cell Count 4.45 X10^6/uL (4.5-5.9); Red Cell Distribution Width 18.7 % (11.6-14.8); White Blood Cell Count 13.4 X10^3/uL (4.5-11.0)
[2024-06-15 15:40] VITALS: PULSE 102; RESP 18; O2SAT 97
[2024-06-15 15:42] LABS: INR 1.1 (0.9-1.3); Prothrombin Time 12.6 SECONDS (9.4-12.5)
[2024-06-15 15:47] LABS: Alanine Aminotransferase 21 IU/L (<50); Albumin 4.1 g/dL (3.5-5.0); Albumin Globulin Ratio 1.2 (1.0-2.8); Alkaline Phosphatase 80 U/L (38-126); Aspartate Aminotransferase 21 IU/L (17-59); Bilirubin Total 0.4 mg/dL (0.2-1.3); Blood Urea Nitrogen 31 mg/dL (9-20); Calcium 9.4 mg/dL (8.4-10.2); Carbon Dioxide 24 mmol/L (22-32); Chloride 103 mmol/L (98-107); Estimated Glomerular Filt Rate > 60 mL/min (>60); Globulin 3.3 g/dL (1.7-4.1); Glucose 328 mg/dL (70-100); HEMOLYSIS 26 (0-50); Potassium 4.8 mmol/L (3.4-5.1); Sodium 134 mmol/L (137-145); Total Protein 7.4 g/dL (6.3-8.2)
[2024-06-15 15:48] LABS: Lactate (Lactic Acid) 1.1 mmol/L (0.7-2.1)
--- NOTE | 2024-06-15 15:53 | EKG_ITS ---
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
[2024-06-15 15:59] LABS: NT-proBNP (BNP-Adult 18+) 123 pg/mL (<125); Troponin I < 0.012 ng/mL (0.01-0.034)
[2024-06-15 19:10] VITALS: BP 142/70; PULSE 83; RESP 18; TEMP 36.9; O2SAT 98
== END 2024-06-15 19:11 | disposition home or self-care (01) ==
PROVIDERS: Emergency Provider Student in an Organized Health Care Education/Training Program; Family Provider Family Medicine; PCP Family Medicine
DX: J18.9 Pneumonia, unspecified organism (principal); R50.9 Fever, unspecified; R06.02 Shortness of breath; R79.89 Other specified abnormal findings of blood chemistry
CPT/HCPCS: 36415; 71045; 80053; 83605; 83880; 84484; 85025; 85610; 93005; 93010; 99283; 99284

== ENCOUNTER → 2024-07-05 09:03 | Outpatient (CLI) | payer OTHER, MEDICAID, SELFPAY ==
[2024-06-10 22:35] VITALS: BMI 43.0
[2024-07-05 10:04] LABS: Hemoglobin A1C% w Est Avg Glu 7.8 % (4.0-6.0)
== END ==
PROVIDERS: Family Provider Family Medicine; PCP Family Medicine; Referring Provider Family Medicine; Visit Provider Family Medicine
DX: F41.9 Anxiety disorder, unspecified (principal); R00.0 Tachycardia, unspecified; R09.02 Hypoxemia; G89.4 Chronic pain syndrome; E11.9 Type 2 diabetes mellitus without complications; I10 Essential (primary) hypertension
CPT/HCPCS: 36415; 83036

== ENCOUNTER 2024-07-23 17:54 | Emergency (ER) | payer OTHER, MEDICAID, SELFPAY ==
[2024-06-10 22:35] VITALS: BMI 43.0
[2024-07-23] VITALS (16 sets, daily range): BP systolic 114–161; BP diastolic 61–74; PULSE 87–117; RESP 12–30; TEMP 36.4–36.6; O2SAT 91–100; BMI 43.0
--- NOTE | 2024-07-23 17:56 | DI.RAD.S_ITS ---
PROCEDURE: XR CHEST 1V INDICATIONS: chest pain TECHNIQUE: One view of the chest was acquired. COMPARISON: [facility], CR, XR CHEST 1V, 06/15/2024, 15:20. [facility], CR, XR CHEST 1V, 06/10/2024, 19:03. FINDINGS: Surgical changes and devices: None. Lungs and pleura: There is improved aeration of the right middle lobe in the area of previous consolidation. Increased interstitial markings throughout are unchanged compared to multiple prior exams, as is pulmonary vascular prominence.. Mediastinum: Mediastinal contours appear normal. Heart size is normal. Bones and chest wall: No suspicious bony lesions. Overlying soft tissues appear unremarkable. IMPRESSION: Constellation of findings suggestive of pulmonary edema. Dictated by: Yamilet Carr M.D. on 07/23/2024 at 17:28 Approved by: Yamilet Carr M.D. on 07/23/2024 at 17:32
--- NOTE | 2024-07-23 18:03 | EKG_ITS ---
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
[2024-07-23 18:12] LABS: Add Manual Diff / Slide Review NO; Basophils Absolute Auto 0 /uL (0-100); Basophils Percent Auto 0.4 % (0-2); Eosinophils Absolute Auto 0 /uL (0-450); Hematocrit 35.4 % (41-53); Hemoglobin 10.9 g/dL (13.5-17.5); Lymphocytes Absolute Auto 1900 /uL (1100-4500); Lymphocytes Percent Auto 18.3 % (25-40); Mean Corpuscular HGB Conc 30.7 % (30-36); Mean Corpuscular Volume 71.5 fL (80-100); Monocytes Absolute Auto 700 /uL (0-900); Neutrophils Absolute Auto 7700 /uL (1500-7000); Neutrophils Percent Auto 74.3 % (50-75); Platelet Count 282 X10^3/uL (150-400); Red Blood Cell Count 4.95 X10^6/uL (4.5-5.9); Red Cell Distribution Width 18.1 % (11.6-14.8); White Blood Cell Count 10.4 X10^3/uL (4.5-11.0)
[2024-07-23 18:19] LABS: Prothrombin Time 11.3 SECONDS (9.4-12.5)
[2024-07-23 18:21] LABS: PTT Partial Thromboplastin Tim 41 SECONDS (25.1-36.5)
--- NOTE | 2024-07-23 18:21 | ED_ITS ---
HPI - Chest Pain General Chief Complaint: Chest Pain Stated Complaint: SOB, chest tightness Time Seen by Provider: 07/23/24 18:21 Source: patient Mode of arrival: Ambulatory Limitations: no limitations History of Present Illness HPI narrative: Patient is a 54-year-old male with a history of hypertension, diabetes, presents to the emergency department for persistent shortness of breath. He states that this started around Wednesday after he got his COVID vaccine. He states that since then he has been feeling flu-like symptoms. Describing shortness breath, palpitations as well as muscle aches. He states that he does use nebulizers at home for history of asthma. Patient states that he has been having intermittent diagnosis of pneumonia therefore he has had 2 take antibiotics last time was approximately 1 month ago. He has not on any blood thinners denies any other symptoms at this time. Related Data Home Medications Medication Instructions Recorded Confirmed dapagliflozin propanediol [Farxiga] 10 mg PO DAILY 10/07/23 07/07/24 spironolactone 25 mg tablet 25 mg PO BID 12/28/23 07/07/24 amlodipine 10 mg tablet 10 mg PO DAILY 06/10/24 07/07/24 cyclobenzaprine 10 mg tablet 10 mg PO TID 06/10/24 07/07/24 finasteride 5 mg tablet 5 mg PO DAILY 06/10/24 07/07/24 furosemide 40 mg tablet See Rx Instructions .Route 06/10/24 07/07/24 .COMPLEX PRN Swelling gabapentin 600 mg tablet 1,200 mg PO BID 06/10/24 07/07/24 metformin 500 mg tablet See Rx Instructions .Route .COMPLEX 06/10/24 07/07/24 prednisone 10 mg tablet 10 mg PO BEDTIME 06/10/24 07/07/24 Previous Rx's Medication Instructions Recorded epinephrine 0.3 mg/0.3 mL 0.3 mg (0.3 mL) IM SEE 07/17/19 injection, auto-injector (EpiPen INSTRUCTIONS #2 ea 2-Nura) ferrous gluconate 324 mg (37.5 mg 324 mg PO DAILY #90 tabs 11/23/23 iron) tablet benralizumab 30 mg/mL subcutaneous 30 mg SUBCUT Q8W 12 months #1 mL 01/05/24 auto-injector (Fasenra Pen) losartan 100 mg tablet 100 mg PO DAILY #90 tabs 02/11/24 tiotropium bromide 18 mcg capsule See Rx Instructions .Route 05/17/24 with inhalation device (Spiriva .COMPLEX #30 caps with HandiHaler) mometasone-formoterol HFA 200 See Rx Instructions .Route 06/10/24 mcg-5 mcg/actuation aerosol .COMPLEX #13 grams inhaler (Dulera) ipratropium 0.5 mg-albuterol 3 mg 3 ml INH RTQ6HR PRN Shortness Of 06/12/24 (2.5 mg base)/3 mL nebulization Breath #120 doses soln levofloxacin 750 mg tablet 750 mg PO DAILY #4 tabs 06/12/24 nicotine 14 mg/24 hr daily 1 patch transdermal DAILY #14 ea 06/12/24 transdermal patch (Nicoderm CQ) prednisone 20 mg tablet 40 mg (2 x 20 mg) PO DAILY #10 tabs 06/12/24 beclomethasone dipropionate 80 See Rx Instructions .Route 06/13/24 mcg/actuation HFA breath activated .COMPLEX #10.6 grams aerosol (Qvar RediHaler) duloxetine 30 mg capsule,delayed 30 mg PO DAILY #90 caps 06/15/24 release varenicline 1 mg tablet (Chantix 1 mg PO BID #56 tabs 06/15/24 Continuing Month Box) diazepam 5 mg tablet See Rx Instructions .Route 06/26/24 .COMPLEX #15 tabs glimepiride 4 mg tablet 8 mg (2 x 4 mg) PO BID #120 tabs 06/29/24 albuterol sulfate 90 mcg/actuation See Rx Instructions .Route 07/03/24 aerosol inhaler .COMPLEX #8.5 grams oxycodone-acetaminophen 10 mg-325 See Rx Instructions PO .COMPLEX 07/07/24 mg tablet (Percocet) PRN pain #180 tabs semaglutide 0.25 mg or 0.5 mg (2 0.25 mg (0.368 mL) SUBCUT QWEEK #3 07/07/24 mg/3 mL) subcutaneous pen injector mL (Ozempic) semaglutide 1 mg/dose (4 mg/3 mL) 1 mg (0.75 mL) SUBCUT QWEEK #3 mL 07/07/24 subcutaneous pen injector (Ozempic) fentanyl 12 mcg/hr transdermal 1 patch transdermal Q96H #5 ea 07/21/24 patch Allergies Allergy/AdvReac Type Severity Reaction Status Date / Time cephalexin [CEPHALEXIN] Allergy Mild FACIAL Verified 07/07/24 07:54 SWELLING doxycycline [DOXYCYCLINE] Allergy Mild HIVES Verified 07/07/24 07:54 terbinafine [TERBINAFINE] Allergy Unknown Verified 07/07/24 07:54 nut - unspecified Allergy Verified 07/07/24 07:54 Cephalosporins AdvReac Intermediate Vomiting Verified 07/07/24 07:54 [CEPHALOSPORINS] Penicillins [PENICILLINS] AdvReac Intermediate Vomiting Verified 07/07/24 07:54 Beta-Blockers AdvReac Mild ASTHMA Verified 07/07/24 07:54 (Beta-Adrenergic Bloc nadolol [NADOLOL] AdvReac Mild AGGREVATES Verified 07/07/24 07:54 ASTHMA Sulfa (Sulfonamide AdvReac Mild VOMITING Verified 07/07/24 07:54 Antibiotics) [SULFA (SULFONAMIDE ANTIBIOTICS)] Review of Systems Review of Systems Narrative: General: Positive myalgias, Denies fever, chills, weight loss HEENT: Denies headache, eye drainage, eye irritation, head trauma, sore throat, voice change Cardiovascular: Denies any chest pain, palpitations, shortness of breath, tachycardia Respiratory: Positive shortness of breath, denies cough, wheeze, stridor GI/: Denies any abdominal pain, nausea, vomiting, diarrhea, bright red blood per rectum, melanotic stools, urinary frequency, urinary retention, dysuria, hematuria MSK: Denies any joint pain, muscle pains, swelling Skin: Denies any rashes, lesions, discoloration Neuro: Denies any headache, lightheadedness, dizziness, fainting, weakness Psych: Denies SI/HI Patient History Medical History 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 Iron deficiency anemia Chronic pain syndrome Cervical stenosis of spinal canal Hypertension Hyperlipidemia Varicose vein of leg Myocarditis Surgical History No pertinent past surgical history Social History household members: significant other Smoking Status: Current every day smoker Smoking Status: Current every day smoker tobacco type: cigarettes alcohol intake frequency: other Substance Use Type: does not use Exam Narrative Exam Narrative: General: Cooperative, comfortable, well-developed, not in acute distress HEENT: Normocephalic, atraumatic, PERRLA, normal sclera, eyelids normal, Neck: Active full range of motion, atraumatic Chest: Normal to inspection, negative crepitus, no overlying erythema ecchymosis Respiratory: Normal respiratory effort, not in acute respiratory distress, clear to auscultation bilaterally negative cough, wheeze, tachypnea, rhonchi, rales Cardiology: Regular rate rhythm negative gallop, murmur, rubs GI/: Normal to inspection, soft, nonrigid, no tenderness to palpation, exam deferred MSK: Full range of active range of motion of all 4 extremities, atraumatic Skin: No rashes lesions noted Neuro: Alert awake oriented x3, moves all 4 extremities spontaneously, cranial nerves intact, able to answer all questions appropriately follows commands appropriately Psych: Cooperative, negative suicidal or homicidal ideations Initial Vital Signs Initial Vital Signs: Vital Signs Pulse Rate 114 H 07/23/24 18:01 Blood Pressure 161/74 H 07/23/24 18:01 Pulse Oximetry 100 07/23/24 18:01 Course Orders Ordered: ED Orders 07/23/24 17:56 XR chest 1V Stat EKG-12 Lead Stat 07/23/24 18:05 Complete Blood Count AUTO DIFF Stat Comprehensive Metabolic Panel Stat D Dimer Stat Lipase Stat Magnesium Stat NT-proBNP (BNP-Adult 18+) Stat PTT Partial Thromboplastin Emanuel Stat Prothrombin Time INR Stat Troponin & CK Cardiac Panel Stat 07/23/24 18:48 CT angio chest PE protocol Stat Discontinued Medications Albuterol/Ipratropium (Albuterol/Ipratropium 3 Ml Ampul) 3 ml INH NOW ONE Stop: 07/23/24 18:36 Last Admin: 07/23/24 18:49 Dose: 3 ml Documented By: DAWNA Vital Signs Vital signs: Vital Signs - 8 hr 07/23/24 18:01 07/23/24 18:01 07/23/24 18:02 Temperature 97.6 F Pulse Rate 114 H 117 H Respiratory Rate 22 Blood Pressure 161/74 H 161/74 H Pulse Oximetry 100 100 Oxygen Delivery Method Room Air 07/23/24 18:30 07/23/24 18:31 07/23/24 18:31 Temperature Pulse Rate 104 H 104 H Respiratory Rate 17 14 Blood Pressure 114/62 Pulse Oximetry 97 97 Oxygen Delivery Method 07/23/24 18:51 07/23/24 19:09 07/23/24 19:31 Temperature Pulse Rate 113 H 114 H 116 H Respiratory Rate 19 18 30 H Blood Pressure Pulse Oximetry 94 96 Oxygen Delivery Method 07/23/24 19:32 07/23/24 19:33 07/23/24 19:33 Temperature Pulse Rate 112 H 110 H Respiratory Rate Blood Pressure 131/61 Pulse Oximetry 96 95 Oxygen Delivery Method Room Air 07/23/24 20:00 07/23/24 20:30 07/23/24 21:00 Temperature Pulse Rate 110 H 97 H 92 H Respiratory Rate 23 13 Blood Pressure Pulse Oximetry 95 91 Oxygen Delivery Method MDM - Chest Pain Differential Diagnosis Differential diagnosis: Likely pneumothorax and other (ACS, pulmonary embolism, electrolyte abnormalities, pneumonia) Lab Data 07/23/24 18:05 07/23/24 18:05 Labs: Lab Results 07/23/24 Range/Units 18:05 WBC 10.4 (4.5-11.0) X10^3/uL RBC 4.95 (4.5-5.9) X10^6/uL Hgb 10.9 L (13.5-17.5) g/dL Hct 35.4 L (41-53) % MCV 71.5 L (80-100) fL MCH 22.0 L (26-34) PG MCHC 30.7 (30-36) % RDW 18.1 H (11.6-14.8) % Plt Count 282 (150-400) X10^3/uL Neut % (Auto) 74.3 (50-75) % Lymph % (Auto) 18.3 L (25-40) % [place] % (Auto) 7.0 (3-14) % Eos % (Auto) 0.0 L (2-4) % Baso % (Auto) 0.4 (0-2) % Neut # (Auto) 7700 H (1486-9805) /uL Lymph # (Auto) 1900 (9246-9868) /uL [place] # (Auto) 700 (0-900) /uL Eos # (Auto) 0 (0-450) /uL Baso # (Auto) 0 (0-100) /uL PT 11.3 (9.4-12.5) SECONDS INR 1.0 (0.9-1.3) APTT 41 H (25.1-36.5) SECONDS D-Dimer 554 H (<500) ng/ml Sodium 137 (137-145) mmol/L Potassium 4.0 (3.4-5.1) mmol/L Chloride 101 (98-107) mmol/L Carbon Dioxide 25 (22-32) mmol/L BUN 30 H (9-20) mg/dL Creatinine 0.91 (0.66-1.25) mg/dL Estimated GFR > 60 (>60) mL/min BUN/Creatinine Ratio 33.0 H (6-22) Glucose 171 H (70-100) mg/dL Calcium 9.9 (8.4-10.2) mg/dL Magnesium 1.6 (1.6-2.3) mg/dL Total Bilirubin 0.3 (0.2-1.3) mg/dL AST 21 (17-59) IU/L ALT 27 (<50) IU/L Alkaline Phosphatase 106 (38-126) U/L Total Creatine Kinase 59 (55-170) U/L Troponin I < 0.012 (0.01-0.034) ng/mL NT-Pro-B Natriuret Pep 47 (<125) pg/mL Total Protein 8.3 H (6.3-8.2) g/dL Albumin 4.7 (3.5-5.0) g/dL Globulin 3.6 (1.7-4.1) g/dL Albumin/Globulin Ratio 1.3 (1.0-2.8) Lipase 53 (23-300) U/L Imaging Data Chest x-ray: Radiologist's Impression: [address] [address] XRay Report Signed Patient: Bandar George MR#: [id number] : 1970 Acct:[id number] Age/Sex: 54 / M Date of Service: 07/23/24 Loc: ED Accession Number: [id number] Procedure: XR chest 1V Ordering Provider: Cait Bonilla D.O. PROCEDURE: XR CHEST 1V INDICATIONS: chest pain TECHNIQUE: One view of the chest was acquired. COMPARISON: [facility], CR, XR CHEST 1V, 06/15/2024, 15:20. [facility], CR, XR CHEST 1V, 06/10/2024, 19:03. FINDINGS: Surgical changes and devices: None. Lungs and pleura: There is improved aeration of the right middle lobe in the area of previous consolidation. Increased interstitial markings throughout are unchanged compared to multiple prior exams, as is pulmonary vascular prominence.. Mediastinum: Mediastinal contours appear normal. Heart size is normal. Bones and chest wall: No suspicious bony lesions. Overlying soft tissues appear unremarkable. IMPRESSION: Constellation of findings suggestive of pulmonary edema. CT scan - chest: Radiologist's Impression: Impression: No central pulmonary embolus. Distal branches can not be evaluated and small emboli can not be excluded. Borderline enlarged mediastinal lymph nodes. These could be reactive in nature MDM Narrative Medical decision making narrative: Patient is a 54-year-old male with history hypertension, diabetes, asthma, on chronic steroids, comes into the ED from home for evaluation of shortness of breath. States that this started several days ago after he got his COVID vaccine. States that he has been also complaining of some mild flu-like symptoms/myalgias. States that those have improved significantly over the past few days but he is noticed that he is having to use his inhaler little bit more than normal therefore decided come into the ED for further evaluation treatment. He states that he has been treated for pneumonia over the past several months he is worried he might have this again. He denies any fevers. Here in the emergency department CT without any indication/findings of pulmonary emboli. Patient not requiring any supplemental oxygen. Most likely patient experiencing shortness of breath secondary to his asthma. He had complete resolution of his symptoms after administration of breathing treatment here. He was instructed to follow up with his stone trimmer in his primary care doctor in outpatient setting he was given strict return precautions he is safe for discharge home with outpatient follow up Discharge Plan Departure Patient Disposition: Home Clinical Impression: Shortness of breath Activity Restrictions/Additional Instructions: Please follow up with pulmonology and primary care doctor Please read the discharge instructions sheet carefully and bring all papers to all doctor follow-up visits, as it may contain information that your doctor may want to see. Disease processes change and evolve, if your symptoms worsen or if you develop any new symptoms that are concerning to you please return for evaluation. Your evaluation today does not show any evidence of any life- threatening/serious illnesses requiring admission to the hospital or surgery. Please follow-up with your doctor for re-evaluation in approximately 1 day. Seek immediate medical attention for any worrisome symptoms. Prescriptions: No Action losartan 100 mg tablet 100 mg PO DAILY Qty: 90 3RF Spiriva with HandiHaler 18 mcg capsule, w/inhalation device See Rx Instructions .ROUTE .COMPLEX Qty: 30 3RF Dose Instruction: inhale THE contents of 1 capsule in THE HANDIHALER once daily Rx Instructions: inhale THE contents of 1 capsule in THE HANDIHALER once daily Dulera 200-5 mcg/actuation HFA aerosol inhaler See Rx Instructions .ROUTE .COMPLEX Qty: 13 6RF Dose Instruction: inhale 2 puffs by mouth and INTO THE LUNGS twice a day Rx Instructions: inhale 2 puffs by mouth and INTO THE LUNGS twice a day Qvar RediHaler 80 mcg/actuation HFA aerosol breath activated See Rx Instructions .ROUTE .COMPLEX Qty: 10.6 3RF Dose Instruction: inhale 1 puff by mouth every 12 hours Rx Instructions: inhale 1 puff by mouth every 12 hours diazepam 5 mg tablet See Rx Instructions .ROUTE .COMPLEX Qty: 15 1RF Rx Instructions: Take 1 tablet at bedtime as needed for sleep. to last 30 days glimepiride 4 mg tablet 8 mg PO BID Qty: 120 0RF albuterol sulfate 90 mcg/actuation HFA aerosol inhaler See Rx Instructions .ROUTE .COMPLEX Qty: 8.5 5RF Dose Instruction: inhale 2 puffs by mouth every 6 hours if needed for shortness of breath or wheezing Rx Instructions: inhale 2 puffs by mouth every 6 hours if needed for shortness of breath or wheezing fentanyl 12 mcg/hr patch 72 hour 1 patch transdermal Q96H Qty: 5 0RF Rx Instructions: Q4days epinephrine [EpiPen 2-Nura] 0.3 mg/0.3 mL auto-injector 0.3 mg IM SEE INSTRUCTIONS Qty: 2 5RF spironolactone 25 mg tablet 25 mg PO BID dapagliflozin propanediol [Farxiga] 10 mg PO DAILY ferrous gluconate 324 mg (37.5 mg iron) tablet 324 mg PO DAILY Qty: 90 3RF oxycodone-acetaminophen [Percocet] 10-325 mg tablet See Rx Instructions PO .COMPLEX PRN (Reason: pain) Qty: 180 0RF Rx Instructions: take 2 tablets by mouth every 4 hours if needed for pain. Ozempic 0.25 mg or 0.5 mg (2 mg/3 mL) pen injector 0.25 mg SUBCUT QWEEK Qty: 3 1RF Rx Instructions: for 4 weeks; then increase to 0.5 mg every week Ozempic 1 mg/dose (4 mg/3 mL) pen injector 1 mg SUBCUT QWEEK Qty: 3 1RF Rx Instructions: start after 1 month of 0.5mg ozempic duloxetine 30 mg capsule,delayed release(DR/EC) 30 mg PO DAILY Qty: 90 0RF varenicline [Chantix Continuing Month Box] 1 mg tablet 1 mg PO BID Qty: 56 0RF cyclobenzaprine 10 mg tablet 10 mg PO TID Rx Instructions: take 1 tablet by mouth three times a day if needed for SPASM(S) furosemide 40 mg tablet See Rx Instructions .ROUTE .COMPLEX PRN (Reason: Swelling) Rx Instructions: 1-2 tabs as needed for swelling metformin 500 mg tablet See Rx Instructions .ROUTE .COMPLEX Rx Instructions: take 2 tablets by mouth twice a day with meals prednisone 10 mg tablet 10 mg PO BEDTIME gabapentin 600 mg tablet 1,200 mg PO BID amlodipine 10 mg tablet 10 mg PO DAILY Rx Instructions: take 1 tablet by mouth once daily finasteride 5 mg tablet 5 mg PO DAILY Rx Instructions: take 1 tablet by mouth once daily ipratropium-albuterol 0.5 mg-3 mg(2.5 mg base)/3 mL Solution For Nebulization 3 ml INH RTQ6HR PRN (Reason: Shortness Of Breath) Qty: 120 2RF levofloxacin 750 mg tablet 750 mg PO DAILY Qty: 4 0RF prednisone 20 mg tablet 40 mg PO DAILY Qty: 10 0RF nicotine [Nicoderm CQ] 14 mg/24 hr patch 24 hour 1 patch transdermal DAILY Qty: 14 2RF Fasenra Pen 30 mg/mL auto-injector 30 mg SUBCUT Q8W 360 Days Qty: 1 6RF Rx Instructions: to start after 3 loading doses Referrals: Ricardo Victoria MD [Primary Care Provider] - Stand Alone Forms: Patient Portal/API/Survey
[2024-07-23 18:23] LABS: Alanine Aminotransferase 27 IU/L (<50); Albumin 4.7 g/dL (3.5-5.0); Albumin Globulin Ratio 1.3 (1.0-2.8); Alkaline Phosphatase 106 U/L (38-126); Aspartate Aminotransferase 21 IU/L (17-59); Bilirubin Total 0.3 mg/dL (0.2-1.3); Blood Urea Nitrogen 30 mg/dL (9-20); Calcium 9.9 mg/dL (8.4-10.2); Carbon Dioxide 25 mmol/L (22-32); Chloride 101 mmol/L (98-107); Creatine Kinase 59 U/L (55-170); Estimated Glomerular Filt Rate > 60 mL/min (>60); Globulin 3.6 g/dL (1.7-4.1); Glucose 171 mg/dL (70-100); HEMOLYSIS < 15 (0-50); Lipase 53 U/L (23-300); Magnesium 1.6 mg/dL (1.6-2.3); Sodium 137 mmol/L (137-145); Total Protein 8.3 g/dL (6.3-8.2)
[2024-07-23 18:35] LABS: NT-proBNP (BNP-Adult 18+) 47 pg/mL (<125); Troponin I < 0.012 ng/mL (0.01-0.034)
[2024-07-23 18:41] LABS: D Dimer 554 ng/ml (<500)
--- NOTE | 2024-07-23 18:48 | DI.CT.S_ITS ---
PROCEDURE: CT ANGIO CHEST PE PROTOCOL INDICATIONS: SOB positive ddimer TECHNIQUE: After the administration of intravenous contrast, 2 mm thick sections acquired from the pulmonary apices to the posterior costophrenic angles. 3-dimensional maximum intensity projection (MIP) coronal and sagittal reformats were then acquired through the thorax. For radiation dose reduction, the following was used: automated exposure control, adjustment of mA and/or kV according to patient size. COMPARISON: [facility], CT, CT ANGIO CHEST PE PROTOCOL, 06/10/2024, 20:34. FINDINGS: Image quality: Injection timing limits evaluation of segmental pulmonary branches. Pulmonary arteries: Pulmonary arteries are normal in size, and demonstrate no intraluminal filling defects to suggest central pulmonary embolism. Branches distal to the main pulmonary arteries are suboptimally evaluated secondary to injection timing. Lower Neck: No enlarged lymph nodes. Thyroid: No thyroid nodules which require sonographic follow up, per consensus guidelines. Axillae: No enlarged lymph nodes. Chest Wall: Unremarkable. Bones: Old posterior 10th rib fracture. Lungs and Pleura: No pneumothorax or pleural effusions. No consolidation or suspicious nodules. Heart: Heart size is normal. No pericardial effusion. Thoracic Vessels: No aortic aneurysm. Mediastinum and Lulu: Borderline enlarged mediastinal lymph nodes are present. Esophagus: No wall thickening. Mild hiatal hernia. Upper Abdomen: Visualized upper abdomen solid organs and bowel loops appear normal. IMPRESSION: No central pulmonary embolus. Distal branches cannot be evaluated and small emboli cannot be excluded. Borderline enlarged mediastinal lymph nodes. These could be reactive in nature. Dictated by: Natalie Lion M.D. on 07/23/2024 at 19:51 Approved by: Natalie Lion M.D. on 07/23/2024 at 19:56
[2024-07-23] MEDS: ALBUTEROL/IPRATROPIUM 3 ML AMPUL INH (18:49)
== END 2024-07-23 22:41 | disposition home or self-care (01) ==
PROVIDERS: Emergency Medicine; Emergency Provider Student in an Organized Health Care Education/Training Program; Family Provider Family Medicine; PCP Family Medicine
DX: R06.02 Shortness of breath (principal); R07.9 Chest pain, unspecified
CPT/HCPCS: 36415; 71045; 71275; 80053; 82550; 83690; 83735; 83880; 84484; 85025; 85379; 85610; 85730; 93005; 93010; 94640; 99284; Q9967

== ENCOUNTER 2024-09-02 21:06 | Emergency (ER) | payer OTHER, SELFPAY ==
[2024-06-10 22:35] VITALS: BMI 43.0
[2024-09-02 21:08] VITALS: BP 164/74; PULSE 95; RESP 18; TEMP 36.9; O2SAT 100; BMI 42.6
== END 2024-09-02 22:45 | disposition left against medical advice (07) ==
PROVIDERS: Emergency Provider Emergency Medicine; Family Provider Family Medicine; PCP Family Medicine
DX: R10.9 Unspecified abdominal pain (principal)
CPT/HCPCS: 99281

== ENCOUNTER 2024-09-03 13:32 | Emergency (ER) | payer OTHER, SELFPAY ==
[2024-06-10 22:35] VITALS: BMI 43.0
[2024-09-03] VITALS (7 sets, daily range): BP systolic 136–169; BP diastolic 64–77; PULSE 31–103; RESP 14–18; TEMP 36.6; O2SAT 92–100; BMI 42.6
--- NOTE | 2024-09-03 14:05 | DI.RAD.S_ITS ---
PROCEDURE: XR KUB INDICATIONS: constipation TECHNIQUE: One view of the abdomen acquired. COMPARISON: [facility], CT, CT ANGIO CHEST PE PROTOCOL, 07/23/2024, 18:56. [facility], CR, XR CHEST 1V, 07/23/2024, 17:54. FINDINGS: Surgical changes and devices: None. Bowel: No dilated loops of small bowel are seen. A moderate to prominent volume of stool is seen within the colon. Soft tissues: No suspicious abdominal calcifications. Visualized solid organ contours appear normal in size. Bones: No suspicious bony lesions. IMPRESSION: There is a moderate to prominent volume of stool seen within the colon, which is consistent with clinically suspected history of constipation. Dictated by: Theo Landa M.D. on 09/03/2024 at 13:41 Approved by: Theo Landa M.D. on 09/03/2024 at 13:42
[2024-09-03] MEDS: ONDANSETRON 4 MG/2 ML INJ IV (15:31)
[2024-09-03 15:35] LABS: Add Manual Diff / Slide Review NO; Basophils Absolute Auto 0 /uL (0-100); Basophils Percent Auto 0.4 % (0-2); Eosinophils Absolute Auto 0 /uL (0-450); Hematocrit 34.6 % (41-53); Hemoglobin 10.9 g/dL (13.5-17.5); Lymphocytes Absolute Auto 2300 /uL (1100-4500); Lymphocytes Percent Auto 21.1 % (25-40); Mean Corpuscular HGB Conc 31.4 % (30-36); Mean Corpuscular Hemoglobin 22.2 PG (26-34); Mean Corpuscular Volume 70.8 fL (80-100); Monocytes Absolute Auto 1000 /uL (0-900); Monocytes Percent Auto 9.5 % (3-14); Neutrophils Absolute Auto 7500 /uL (1500-7000); Platelet Count 299 X10^3/uL (150-400); Red Blood Cell Count 4.89 X10^6/uL (4.5-5.9); Red Cell Distribution Width 17.9 % (11.6-14.8); White Blood Cell Count 10.9 X10^3/uL (4.5-11.0)
[2024-09-03 15:47] LABS: Alanine Aminotransferase 36 IU/L (<50); Albumin 4.6 g/dL (3.5-5.0); Albumin Globulin Ratio 1.5 (1.0-2.8); Alkaline Phosphatase 107 U/L (38-126); Aspartate Aminotransferase 25 IU/L (17-59); BUN Creatinine Ratio 27.5 (6-22); Bilirubin Total 0.2 mg/dL (0.2-1.3); Blood Urea Nitrogen 25 mg/dL (9-20); Calcium 9.2 mg/dL (8.4-10.2); Carbon Dioxide 30 mmol/L (22-32); Chloride 95 mmol/L (98-107); Estimated Glomerular Filt Rate > 60 mL/min (>60); Glucose 170 mg/dL (70-100); HEMOLYSIS < 15 (0-50); Lipase 52 U/L (23-300); Potassium 4.4 mmol/L (3.4-5.1); Sodium 133 mmol/L (137-145); Total Protein 7.6 g/dL (6.3-8.2)
--- NOTE | 2024-09-03 15:59 | ED_ITS ---
HPI - Abdominal Pain <Tika Ojeda PA-C - Last Filed: 09/03/24 20:15> General Chief Complaint: Abdominal Pain Stated Complaint: stomach px BRBPR Time Seen by Provider: 09/03/24 14:52 Source: patient Mode of arrival: Ambulatory History of Present Illness HPI narrative: Mr. George is a very pleasant 54-year-old male with a past medical history of chronic pain on pain management, type 2 diabetes on Ozempic, asthma, anemia, hypertension, obesity who presents to the emergency department for 1 week of abdominal pain and constipation. Patient states because of his chronic opioid use he often suffers from constipation. He did not have a bowel movement for 1 week however he did pass small pellets earlier today and reports there were some bright red blood when wiping from hemorrhoids. He has been having some left- sided lower quadrant abdominal pain. States that yesterday he took magnesium citrate, Dulcolax. He does feel nauseous but no vomiting. He took last dose of Ozempic about 8 days ago. No fevers, chills, chest pain, shortness of breath, dysuria. Related Data Home Medications Medication Instructions Recorded Confirmed dapagliflozin propanediol [Farxiga] 10 mg PO DAILY 10/07/23 08/24/24 spironolactone 25 mg tablet 25 mg PO BID 12/28/23 08/24/24 cyclobenzaprine 10 mg tablet 10 mg PO TID 06/10/24 08/24/24 finasteride 5 mg tablet 5 mg PO DAILY 06/10/24 08/24/24 furosemide 40 mg tablet See Rx Instructions .Route 06/10/24 08/24/24 .COMPLEX PRN Swelling metformin 500 mg tablet See Rx Instructions .Route .COMPLEX 06/10/24 08/24/24 prednisone 10 mg tablet 10 mg PO BEDTIME 06/10/24 08/24/24 Previous Rx's Medication Instructions Recorded epinephrine 0.3 mg/0.3 mL 0.3 mg (0.3 mL) IM SEE 07/17/19 injection, auto-injector (EpiPen INSTRUCTIONS #2 ea 2-Nura) ferrous gluconate 324 mg (37.5 mg 324 mg PO DAILY #90 tabs 11/23/23 iron) tablet benralizumab 30 mg/mL subcutaneous 30 mg SUBCUT Q8W 12 months #1 mL 01/05/24 auto-injector (Fasenra Pen) losartan 100 mg tablet 100 mg PO DAILY #90 tabs 02/11/24 tiotropium bromide 18 mcg capsule See Rx Instructions .Route 05/17/24 with inhalation device (Spiriva .COMPLEX #30 caps with HandiHaler) mometasone-formoterol HFA 200 See Rx Instructions .Route 06/10/24 mcg-5 mcg/actuation aerosol .COMPLEX #13 grams inhaler (Dulera) ipratropium 0.5 mg-albuterol 3 mg 3 ml INH RTQ6HR PRN Shortness Of 06/12/24 (2.5 mg base)/3 mL nebulization Breath #120 doses soln levofloxacin 750 mg tablet 750 mg PO DAILY #4 tabs 06/12/24 nicotine 14 mg/24 hr daily 1 patch transdermal DAILY #14 ea 06/12/24 transdermal patch (Nicoderm CQ) prednisone 20 mg tablet 40 mg (2 x 20 mg) PO DAILY #10 tabs 06/12/24 albuterol sulfate 90 mcg/actuation See Rx Instructions .Route 07/03/24 aerosol inhaler .COMPLEX #8.5 grams semaglutide 1 mg/dose (4 mg/3 mL) 1 mg (0.75 mL) SUBCUT QWEEK #3 mL 07/07/24 subcutaneous pen injector (Ozempic) gabapentin 600 mg tablet 1,200 mg (2 x 600 mg) PO BID #240 07/27/24 tabs semaglutide 0.25 mg or 0.5 mg (2 0.25 mg (0.368 mL) SUBCUT QWEEK #3 07/28/24 mg/3 mL) subcutaneous pen injector mL (Ozempic) glimepiride 4 mg tablet 8 mg (2 x 4 mg) PO BID #120 tabs 07/30/24 beclomethasone dipropionate 80 See Rx Instructions .Route 08/02/24 mcg/actuation HFA breath activated .COMPLEX #10.6 grams aerosol (Qvar RediHaler) escitalopram oxalate 10 mg tablet See Rx Instructions .Route 08/16/24 (Lexapro) .COMPLEX #30 tabs dupilumab 300 mg/2 mL subcutaneous 300 mg (2 mL) SUBCUT Q2W #4 mL 08/18/24 pen injector (Dupixent) diazepam 5 mg tablet See Rx Instructions .Route 08/25/24 .COMPLEX #15 tabs fentanyl 12 mcg/hr transdermal 1 patch transdermal Q96H #5 ea 08/30/24 patch oxycodone-acetaminophen 10 mg-325 See Rx Instructions PO .COMPLEX 08/30/24 mg tablet (Percocet) PRN pain #180 tabs amlodipine 10 mg tablet 10 mg PO DAILY #90 tabs 09/01/24 ciprofloxacin HCl 500 mg tablet 500 mg PO Q12H 7 days #14 tabs 09/03/24 (Cipro) metronidazole 500 mg tablet 500 mg PO Q12H 7 days #14 tabs 09/03/24 Allergies Allergy/AdvReac Type Severity Reaction Status Date / Time cephalexin [CEPHALEXIN] Allergy Mild FACIAL Verified 08/24/24 09:16 SWELLING doxycycline [DOXYCYCLINE] Allergy Mild HIVES Verified 08/24/24 09:16 terbinafine [TERBINAFINE] Allergy Unknown Verified 08/24/24 09:16 nut - unspecified Allergy Verified 08/24/24 09:16 benralizumab [From Fasenra] AdvReac Severe SOB Verified 08/24/24 09:16 Cephalosporins AdvReac Intermediate Vomiting Verified 08/24/24 09:16 [CEPHALOSPORINS] Penicillins [PENICILLINS] AdvReac Intermediate Vomiting Verified 08/24/24 09:16 Beta-Blockers AdvReac Mild ASTHMA Verified 08/24/24 09:16 (Beta-Adrenergic Bloc nadolol [NADOLOL] AdvReac Mild AGGREVATES Verified 08/24/24 09:16 ASTHMA Sulfa (Sulfonamide AdvReac Mild VOMITING Verified 08/24/24 09:16 Antibiotics) [SULFA (SULFONAMIDE ANTIBIOTICS)] Review of Systems <Tika Ojeda PA-C - Last Filed: 09/03/24 20:15> Review of Systems ROS Unobtainable: All systems reviewed & are unremarkable except as noted in HPI and below Patient History <Tika Ojeda PA-C - Last Filed: 09/03/24 20:15> Medical History Tobacco use disorder EMA (generalized anxiety disorder) OCD (obsessive compulsive disorder) 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 Iron deficiency anemia Chronic pain syndrome Cervical stenosis of spinal canal Hypertension Hyperlipidemia Varicose vein of leg Myocarditis Surgical History No pertinent past surgical history Social History marital status: unmarried,single household members: significant other lives independently: Yes occupational status: disabled Smoking Status: Current every day smoker alcohol intake: never substance use type: does not use Smoking Status: Current every day smoker tobacco type: cigarettes alcohol intake frequency: other Exam <Tika Ojeda PA-C - Last Filed: 09/03/24 20:15> Narrative Exam Narrative: GENERAL: 54 year old patient appears stated age. Obese patient, in no acute distress. NECK: Trachea midline. Cervical ROM intact. CARDIOVASCULAR: Regular rate and rhythm. RESPIRATORY: ?Nonlabored respirations. ?Speaking in clear, full sentences. ?Clear to auscultation. Breath sounds equal bilaterally. No wheezes, rales, or rhonchi. ? GASTROINTESTINAL: Protuberant abdomen. Soft. Left lower quadrant tenderness. No rebound or guarding. Normal bowel sounds. : Patient gave consent for external rectal exam only. Nurse triage clinician present. No external hemorrhoids or anal fissure. EXTREMITIES: No edema or joint tenderness. NEURO: AOx3. ?Clear speech. ?Moves all 4 extremities appropriately. SKIN: No rash or erythema of visible areas Initial Vital Signs Initial Vital Signs: Vital Signs Temperature 97.8 F 09/03/24 13:55 Pulse Rate 100 H 09/03/24 13:55 Respiratory Rate 18 09/03/24 13:55 Blood Pressure 164/77 H 09/03/24 13:55 Pulse Oximetry 93 09/03/24 13:55 Oxygen Delivery Method Room Air 09/03/24 13:55 <Ramón Lopez MD - Last Filed: 09/03/24 20:26> Initial Vital Signs Initial Vital Signs: Vital Signs Temperature 97.8 F 09/03/24 13:55 Pulse Rate 100 H 09/03/24 13:55 Respiratory Rate 18 09/03/24 13:55 Blood Pressure 164/77 H 09/03/24 13:55 Pulse Oximetry 93 09/03/24 13:55 Oxygen Delivery Method Room Air 09/03/24 13:55 Course <Tika Ojeda PA-C - Last Filed: 09/03/24 20:15> Orders Ordered: ED Orders 09/03/24 14:05 XR KUB Stat 09/03/24 15:20 Complete Blood Count AUTO DIFF Stat Comprehensive Metabolic Panel Stat Lipase Stat 09/03/24 16:13 CT abdomen pelvis w con Stat 09/03/24 16:30 Chlamydia Gonorrhea PCR -URINE Stat Urine Microscopic Stat Discontinued Medications Ciprofloxacin (Ciprofloxacin 250 Mg Tablet) 500 mg PO NOW ONE Stop: 09/03/24 18:58 Last Admin: 09/03/24 19:09 Dose: 500 mg Documented By: JOJO Metronidazole (Metronidazole 500 Mg Tablet) 500 mg PO NOW ONE Stop: 09/03/24 18:58 Last Admin: 09/03/24 19:08 Dose: 500 mg Documented By: JOJO Morphine Sulfate (Morphine 4 Mg/Ml Inj) 4 mg IV NOW ONE Stop: 09/03/24 16:14 Last Admin: 09/03/24 16:40 Dose: 4 mg Documented By: MYNOR Ondansetron HCl (Ondansetron 4 Mg/2 Ml Inj) 4 mg IV NOW PRN PRN Reason: Nausea And Vomiting Last Admin: 09/03/24 15:31 Dose: 4 mg Documented By: Ondansetron HCl (Ondansetron 4 Mg Odt) 4 mg PO NOW PRN PRN Reason: Nausea And Vomiting Vital Signs Vital signs: Vital Signs - 8 hr 09/03/24 13:55 09/03/24 15:53 09/03/24 15:54 Temperature 97.8 F Pulse Rate 100 H 103 H Respiratory Rate 18 Blood Pressure 164/77 H 169/74 H Pulse Oximetry 93 99 Oxygen Delivery Method Room Air 09/03/24 15:54 09/03/24 16:00 09/03/24 16:00 Temperature Pulse Rate 100 H 87 Respiratory Rate Blood Pressure 159/64 H Pulse Oximetry 100 100 Oxygen Delivery Method Room Air 09/03/24 16:41 09/03/24 16:43 09/03/24 16:43 Temperature Pulse Rate 31 L 94 H Respiratory Rate Blood Pressure 148/73 H Pulse Oximetry 92 94 Oxygen Delivery Method 09/03/24 18:48 Temperature Pulse Rate 76 Respiratory Rate 14 Blood Pressure 136/72 Pulse Oximetry 100 Oxygen Delivery Method Room Air <Ramón Lopez MD - Last Filed: 09/03/24 20:26> Orders Ordered: ED Orders 09/03/24 14:05 XR KUB Stat 09/03/24 15:20 Complete Blood Count AUTO DIFF Stat Comprehensive Metabolic Panel Stat Lipase Stat 09/03/24 16:13 CT abdomen pelvis w con Stat 09/03/24 16:30 Chlamydia Gonorrhea PCR -URINE Stat Urine Microscopic Stat Discontinued Medications Ciprofloxacin (Ciprofloxacin 250 Mg Tablet) 500 mg PO NOW ONE Stop: 09/03/24 18:58 Last Admin: 09/03/24 19:09 Dose: 500 mg Documented By: JOJO Metronidazole (Metronidazole 500 Mg Tablet) 500 mg PO NOW ONE Stop: 09/03/24 18:58 Last Admin: 09/03/24 19:08 Dose: 500 mg Documented By: JOJO Morphine Sulfate (Morphine 4 Mg/Ml Inj) 4 mg IV NOW ONE Stop: 09/03/24 16:14 Last Admin: 09/03/24 16:40 Dose: 4 mg Documented By: MYNOR Ondansetron HCl (Ondansetron 4 Mg/2 Ml Inj) 4 mg IV NOW PRN PRN Reason: Nausea And Vomiting Last Admin: 09/03/24 15:31 Dose: 4 mg Documented By: Ondansetron HCl (Ondansetron 4 Mg Odt) 4 mg PO NOW PRN PRN Reason: Nausea And Vomiting Vital Signs Vital signs: Vital Signs - 8 hr 09/03/24 13:55 09/03/24 15:53 09/03/24 15:54 Temperature 97.8 F Pulse Rate 100 H 103 H Respiratory Rate 18 Blood Pressure 164/77 H 169/74 H Pulse Oximetry 93 99 Oxygen Delivery Method Room Air 09/03/24 15:54 09/03/24 16:00 09/03/24 16:00 Temperature Pulse Rate 100 H 87 Respiratory Rate Blood Pressure 159/64 H Pulse Oximetry 100 100 Oxygen Delivery Method Room Air 09/03/24 16:41 09/03/24 16:43 09/03/24 16:43 Temperature Pulse Rate 31 L 94 H Respiratory Rate Blood Pressure 148/73 H Pulse Oximetry 92 94 Oxygen Delivery Method 09/03/24 18:48 Temperature Pulse Rate 76 Respiratory Rate 14 Blood Pressure 136/72 Pulse Oximetry 100 Oxygen Delivery Method Room Air MDM - Abdominal Pain <Tika Ojeda PA-C - Last Filed: 09/03/24 20:15> Medical Records Attestation: I reviewed the patient's medical records. Lab Data 12/22/24 15:20 09/03/24 15:20 Labs: Lab Results 09/03/24 09/03/24 Range/Units 15:20 16:30 WBC 10.9 (4.5-11.0) X10^3/uL RBC 4.89 (4.5-5.9) X10^6/uL Hgb 10.9 L (13.5-17.5) g/dL Hct 34.6 L (41-53) % MCV 70.8 L (80-100) fL MCH 22.2 L (26-34) PG MCHC 31.4 (30-36) % RDW 17.9 H (11.6-14.8) % Plt Count 299 (150-400) X10^3/uL Neut % (Auto) 69.0 (50-75) % Lymph % (Auto) 21.1 L (25-40) % [place] % (Auto) 9.5 (3-14) % Eos % (Auto) 0.0 L (2-4) % Baso % (Auto) 0.4 (0-2) % Neut # (Auto) 7500 H (5507-8596) /uL Lymph # (Auto) 2300 (2275-8682) /uL [place] # (Auto) 1000 H (0-900) /uL Eos # (Auto) 0 (0-450) /uL Baso # (Auto) 0 (0-100) /uL Sodium 133 L (137-145) mmol/L Potassium 4.4 (3.4-5.1) mmol/L Chloride 95 L (98-107) mmol/L Carbon Dioxide 30 (22-32) mmol/L BUN 25 H (9-20) mg/dL Creatinine 0.91 (0.66-1.25) mg/dL Estimated GFR > 60 (>60) mL/min BUN/Creatinine Ratio 27.5 H (6-22) Glucose 170 H (70-100) mg/dL Calcium 9.2 (8.4-10.2) mg/dL Total Bilirubin 0.2 (0.2-1.3) mg/dL AST 25 (17-59) IU/L ALT 36 (<50) IU/L Alkaline Phosphatase 107 (38-126) U/L Total Protein 7.6 (6.3-8.2) g/dL Albumin 4.6 (3.5-5.0) g/dL Globulin 3.0 (1.7-4.1) g/dL Albumin/Globulin Ratio 1.5 (1.0-2.8) Lipase 52 (23-300) U/L Urine RBC None seen (0-5/HPF) Urine WBC None seen (0-5/HPF) Ur Squamous Epith Cells None seen (0-5/HPF) Urine Bacteria None seen (None) Ur Culture Indicated? Cult not indicated Vol Urine Centrifuged 10ml (spun) Ur Chlamydia DNA (PCR) Not detected N gonorrhoeae DNA (PCR) Not detected Point of care testing: Urine Dip Bedside Urine Glucose 250 mg/dl Bedside Urine Bilirubin - Negative Bedside Urine Ketone - Negative Urine Specific [place] 1.010 Bedside Urine Occult Blood - Negative Bedside Urine pH 6.5 Bedside Urine Protein +/- 15 Bedside Urine Urobilinogen - Negative Bedside Urine Nitrite - Negative Bedside Urine Leukocytes - Negative Esterase Imaging Data CT scan - abdomen/pelvis: Radiologist's Impression: PROCEDURE: CT ABDOMEN PELVIS W CON INDICATIONS: LLQ abd pain; constipation; BRB in stool TECHNIQUE: After the administration of intravenous contrast, axial sections acquired from the lung bases to the pubic symphysis. Coronal and sagittal reformats were performed. For radiation dose reduction, the following was used: automated exposure control, adjustment of mA and/or kV according to patient size. COMPARISON: [facility], CT, CT ANGIO CHEST PE PROTOCOL, 07/23/2024, 18:56. [facility], CR, XR KUB, 09/03/2024, 14:04. FINDINGS: Image quality: Diagnostic. Lower Chest: No significant findings. ABDOMEN: Liver: No solid mass. The liver is enlarged. Gallbladder: No radiopaque gallstones or wall thickening. Biliary ducts: No biliary dilation. Pancreas: No ductal dilation. Spleen: Size is within normal limits. Adrenal Glands: No adrenal nodules. Kidneys and Ureters: No hydronephrosis. No solid mass. No complex renal cystic lesion which requires follow up. Focal areas of volume loss can be seen involving the right kidney. Stomach and Bowel: A moderate volume of stool is seen within the colon. Moderate generalized wall thickening can be seen involving the rectum. No dilated loops of small bowel are seen. Normal appendix. Peritoneum: No abnormal intraperitoneal fluid. No free air. Ventral Wall: No significant ventral hernia. Abdominal Nodes: No retroperitoneal or mesenteric adenopathy by size criteria. Vessels: Aorta and inferior vena cava are normal in size. PELVIS: Pelvic Organs: Unremarkable. Bladder: No bladder wall thickening, accounting for underdistention. Pelvic Nodes: No enlarged lymph nodes. Miscellaneous: No inguinal hernias are seen. Bones: No aggressive osseous abnormality. IMPRESSION: Moderate generalized wall thickening can be seen involving the rectum. Please consider proctitis. Please consider lower endoscopy for further evaluation, when clinically appropriate. A moderate volume of stool seen within the colon, which is consistent with the given clinical history of constipation. There are focal areas of volume loss seen involving the right kidney. Please correlate with prior episodes of infarction or infection. Additional findings: Hepatomegaly Normal appendix MDM Narrative Medical decision making narrative: 54-year-old male with a past medical history of chronic pain on pain management, type 2 diabetes on Ozempic, asthma, anemia, hypertension, obesity who presents to the emergency department for 1 week of abdominal pain and constipation. Differential diagnosis includes but is not limited to constipation, diverticulitis, bowel obstruction, medication side effect, electrolyte abnormality, intra-abdominal abscess, other. On exam the patient is in no acute distress, nontoxic appearing. He is afebrile. He has a protuberant abdomen that is tender in the left lower quadrant with no rebound or guarding. Proceed with abdominal labs and CT abdomen pelvis. Labs revealed WBC count 10.9. Stable anemia hemoglobin 10.9 hematocrit 34.6. Sodium 133. Chloride 95. Potassium 4.4. BUN 25, creatinine 0.91. BUN down from 30 1 month ago. Glucose 170. Urinalysis negative. Urine GC negative. CT scan reveals moderate generalized wall thickening which can be seen involving the rectum. Consider proctitis. Moderate volume of stool seen within the colon which is consistent with given history of constipation. There are focal areas of volume loss seen involving the right kidney. Please correlate with prior episodes of infarction or infection. -- Patient does admit to a history of frequent right-sided kidney infections. He has been to a man for 23 years but denies any recent sexual intercourse, he also does not engage in receptive anal sex. Does not wish to be tested for STDs rectal at this time. Reports allergies to penicillins and doxycycline. External rectal exam normal. We will treat with Cipro Flagyl for suspected non STI related proctitis. First dose given in the ER. Discussed black box warning of fluoroquinolones with the patient. Encouraged avoiding exercise/heavy lifting until evaluated by primary care doctor after discontinuation of antibiotics. Patient did have a bowel movement during his ER stay. Pain improved significantly. Abdomen soft and nontender repeat examinations. Recommended MiraLax or magnesium citrate in addition to completing the full course of antibiotics. ER return precautions discussed. Patient verbalized understanding of all information and is stable for discharge home. <Ramón Lopez MD - Last Filed: 09/03/24 20:26> Lab Data Labs: Lab Results 09/03/24 09/03/24 Range/Units 15:20 16:30 WBC 10.9 (4.5-11.0) X10^3/uL RBC 4.89 (4.5-5.9) X10^6/uL Hgb 10.9 L (13.5-17.5) g/dL Hct 34.6 L (41-53) % MCV 70.8 L (80-100) fL MCH 22.2 L (26-34) PG MCHC 31.4 (30-36) % RDW 17.9 H (11.6-14.8) % Plt Count 299 (150-400) X10^3/uL Neut % (Auto) 69.0 (50-75) % Lymph % (Auto) 21.1 L (25-40) % [place] % (Auto) 9.5 (3-14) % Eos % (Auto) 0.0 L (2-4) % Baso % (Auto) 0.4 (0-2) % Neut # (Auto) 7500 H (7043-7687) /uL Lymph # (Auto) 2300 (7497-5211) /uL [place] # (Auto) 1000 H (0-900) /uL Eos # (Auto) 0 (0-450) /uL Baso # (Auto) 0 (0-100) /uL Sodium 133 L (137-145) mmol/L Potassium 4.4 (3.4-5.1) mmol/L Chloride 95 L (98-107) mmol/L Carbon Dioxide 30 (22-32) mmol/L BUN 25 H (9-20) mg/dL Creatinine 0.91 (0.66-1.25) mg/dL Estimated GFR > 60 (>60) mL/min BUN/Creatinine Ratio 27.5 H (6-22) Glucose 170 H (70-100) mg/dL Calcium 9.2 (8.4-10.2) mg/dL Total Bilirubin 0.2 (0.2-1.3) mg/dL AST 25 (17-59) IU/L ALT 36 (<50) IU/L Alkaline Phosphatase 107 (38-126) U/L Total Protein 7.6 (6.3-8.2) g/dL Albumin 4.6 (3.5-5.0) g/dL Globulin 3.0 (1.7-4.1) g/dL Albumin/Globulin Ratio 1.5 (1.0-2.8) Lipase 52 (23-300) U/L Urine RBC None seen (0-5/HPF) Urine WBC None seen (0-5/HPF) Ur Squamous Epith Cells None seen (0-5/HPF) Urine Bacteria None seen (None) Ur Culture Indicated? Cult not indicated Vol Urine Centrifuged 10ml (spun) Ur Chlamydia DNA (PCR) Not detected N gonorrhoeae DNA (PCR) Not detected Point of care testing: Urine Dip Bedside Urine Glucose 250 mg/dl Bedside Urine Bilirubin - Negative Bedside Urine Ketone - Negative Urine Specific [place] 1.010 Bedside Urine Occult Blood - Negative Bedside Urine pH 6.5 Bedside Urine Protein +/- 15 Bedside Urine Urobilinogen - Negative Bedside Urine Nitrite - Negative Bedside Urine Leukocytes - Negative Esterase Discharge Plan Departure Patient Disposition: Home Clinical Impression: Acute proctitis Constipation Qualifiers: Constipation type: unspecified constipation type Qualified Code(s): K59.00 - Constipation, unspecified Instructions: DI for Constipation Activity Restrictions/Additional Instructions: Today you were evaluated for abdominal pain and constipation. Your CT scan revealed proctitis which is inflammation/infection of the rectum. I have prescribed two antibiotics for you to take over the next week. You may also use MiraLax if needed for constipation. You may take 195 to 300 mL of magnesium citrate once daily if needed for constipation as well. Return to the ER if you have any new or worsening symptoms, fevers, severe pain, vomiting / inability to keep down antibiotics, any other concerns. Please follow up with your primary care doctor within the next 2-3 days for ER follow-up. (If you do not have a PCP you can call [phone]. to schedule an appointment with an [facility] Primary Care Provider) IF YOU DEVELOP ANY NEW OR WORSENING SYMPTOMS, RETURN TO THE ER! Please read the attached instructions, they highlight more specific treatments and interventions for you at home. Thank you for letting me participate in your care, Tika Ojeda PA-C Prescriptions: New ciprofloxacin HCl [Cipro] 500 mg tablet 500 mg PO Q12H 7 Days Qty: 14 0RF metronidazole 500 mg tablet 500 mg PO Q12H 7 Days Qty: 14 0RF No Action escitalopram oxalate [Lexapro] 10 mg tablet See Rx Instructions .Route .COMPLEX Qty: 30 2RF Rx Instructions: Take half a tablet (5mg) by mouth daily for 6 days, then increase to full tablet (10mg) by mouth daily thereafter; losartan 100 mg tablet 100 mg PO DAILY Qty: 90 3RF Spiriva with HandiHaler 18 mcg capsule, w/inhalation device See Rx Instructions .ROUTE .COMPLEX Qty: 30 3RF Dose Instruction: inhale THE contents of 1 capsule in THE HANDIHALER once daily Rx Instructions: inhale THE contents of 1 capsule in THE HANDIHALER once daily Dulera 200-5 mcg/actuation HFA aerosol inhaler See Rx Instructions .ROUTE .COMPLEX Qty: 13 6RF Dose Instruction: inhale 2 puffs by mouth and INTO THE LUNGS twice a day Rx Instructions: inhale 2 puffs by mouth and INTO THE LUNGS twice a day albuterol sulfate 90 mcg/actuation HFA aerosol inhaler See Rx Instructions .ROUTE .COMPLEX Qty: 8.5 5RF Dose Instruction: inhale 2 puffs by mouth every 6 hours if needed for shortness of breath or wheezing Rx Instructions: inhale 2 puffs by mouth every 6 hours if needed for shortness of breath or wheezing gabapentin 600 mg tablet 1,200 mg PO BID Qty: 240 0RF Ozempic 0.25 mg or 0.5 mg (2 mg/3 mL) pen injector 0.25 mg SUBCUT QWEEK Qty: 3 1RF Rx Instructions: for 4 weeks; then increase to 0.5 mg every week glimepiride 4 mg tablet 8 mg PO BID Qty: 120 0RF Qvar RediHaler 80 mcg/actuation HFA aerosol breath activated See Rx Instructions .ROUTE .COMPLEX Qty: 10.6 3RF Dose Instruction: inhale 1 puff by mouth every 12 hours Rx Instructions: inhale 1 puff by mouth every 12 hours diazepam 5 mg tablet See Rx Instructions .ROUTE .COMPLEX Qty: 15 1RF Rx Instructions: Take 1 tablet at bedtime as needed for sleep. to last 30 days oxycodone-acetaminophen [Percocet] 10-325 mg tablet See Rx Instructions PO .COMPLEX PRN (Reason: pain) Qty: 180 0RF Rx Instructions: take 2 tablets by mouth every 4 hours if needed for pain. fentanyl 12 mcg/hr patch 72 hour 1 patch transdermal Q96H Qty: 5 0RF Rx Instructions: Q4days amlodipine 10 mg tablet 10 mg PO DAILY Qty: 90 1RF Rx Instructions: take 1 tablet by mouth once daily epinephrine [EpiPen 2-Nura] 0.3 mg/0.3 mL auto-injector 0.3 mg IM SEE INSTRUCTIONS Qty: 2 5RF spironolactone 25 mg tablet 25 mg PO BID dapagliflozin propanediol [Farxiga] 10 mg PO DAILY ferrous gluconate 324 mg (37.5 mg iron) tablet 324 mg PO DAILY Qty: 90 3RF Ozempic 1 mg/dose (4 mg/3 mL) pen injector 1 mg SUBCUT QWEEK Qty: 3 1RF Rx Instructions: start after 1 month of 0.5mg ozempic cyclobenzaprine 10 mg tablet 10 mg PO TID Rx Instructions: take 1 tablet by mouth three times a day if needed for SPASM(S) furosemide 40 mg tablet See Rx Instructions .ROUTE .COMPLEX PRN (Reason: Swelling) Rx Instructions: 1-2 tabs as needed for swelling metformin 500 mg tablet See Rx Instructions .ROUTE .COMPLEX Rx Instructions: take 2 tablets by mouth twice a day with meals prednisone 10 mg tablet 10 mg PO BEDTIME finasteride 5 mg tablet 5 mg PO DAILY Rx Instructions: take 1 tablet by mouth once daily ipratropium-albuterol 0.5 mg-3 mg(2.5 mg base)/3 mL Solution For Nebulization 3 ml INH [id number] PRN (Reason: Shortness Of Breath) Qty: 120 2RF levofloxacin 750 mg tablet 750 mg PO DAILY Qty: 4 0RF prednisone 20 mg tablet 40 mg PO DAILY Qty: 10 0RF nicotine [Nicoderm CQ] 14 mg/24 hr patch 24 hour 1 patch transdermal DAILY Qty: 14 2RF Fasenra Pen 30 mg/mL auto-injector 30 mg SUBCUT Q8W 360 Days Qty: 1 6RF Rx Instructions: to start after 3 loading doses Dupixent Pen 300 mg/2 mL pen injector 300 mg SUBCUT Q2W Qty: 4 12RF Rx Instructions: 600 mg once then 300 mg every 2 weeks Referrals: Ricardo Victoria MD [Primary Care Provider] - Stand Alone Forms: Patient Portal/API/Survey ED Sign-out <Ramón Lopez MD - Last Filed: 09/03/24 20:26> Cosign ED Attending Cosignature Attestation: I was immediately available in the department for consultation. This documentation has been reviewed and I agree with assessment and plan. Supervised by Ramón Lopez MD
--- NOTE | 2024-09-03 16:13 | DI.CT.S_ITS ---
PROCEDURE: CT ABDOMEN PELVIS W CON INDICATIONS: LLQ abd pain; constipation; BRB in stool TECHNIQUE: After the administration of intravenous contrast, axial sections acquired from the lung bases to the pubic symphysis. Coronal and sagittal reformats were performed. For radiation dose reduction, the following was used: automated exposure control, adjustment of mA and/or kV according to patient size. COMPARISON: [facility], CT, CT ANGIO CHEST PE PROTOCOL, 07/23/2024, 18:56. [facility], CR, XR KUB, 09/03/2024, 14:04. FINDINGS: Image quality: Diagnostic. Lower Chest: No significant findings. ABDOMEN: Liver: No solid mass. The liver is enlarged. Gallbladder: No radiopaque gallstones or wall thickening. Biliary ducts: No biliary dilation. Pancreas: No ductal dilation. Spleen: Size is within normal limits. Adrenal Glands: No adrenal nodules. Kidneys and Ureters: No hydronephrosis. No solid mass. No complex renal cystic lesion which requires follow up. Focal areas of volume loss can be seen involving the right kidney. Stomach and Bowel: A moderate volume of stool is seen within the colon. Moderate generalized wall thickening can be seen involving the rectum. No dilated loops of small bowel are seen. Normal appendix. Peritoneum: No abnormal intraperitoneal fluid. No free air. Ventral Wall: No significant ventral hernia. Abdominal Nodes: No retroperitoneal or mesenteric adenopathy by size criteria. Vessels: Aorta and inferior vena cava are normal in size. PELVIS: Pelvic Organs: Unremarkable. Bladder: No bladder wall thickening, accounting for underdistention. Pelvic Nodes: No enlarged lymph nodes. Miscellaneous: No inguinal hernias are seen. Bones: No aggressive osseous abnormality. IMPRESSION: Moderate generalized wall thickening can be seen involving the rectum. Please consider proctitis. Please consider lower endoscopy for further evaluation, when clinically appropriate. A moderate volume of stool seen within the colon, which is consistent with the given clinical history of constipation. There are focal areas of volume loss seen involving the right kidney. Please correlate with prior episodes of infarction or infection. Additional findings: Hepatomegaly Normal appendix Dictated by: Theo Landa M.D. on 09/03/2024 at 15:48 Approved by: Theo Landa M.D. on 09/03/2024 at 15:51
[2024-09-03] MEDS: MORPHINE 4 MG/ML INJ IV (16:40)
[2024-09-03 18:38] LABS: Bacteria Urine None Seen; Culture Indicated Urine Cult Not Indicated; RBC Urine None Seen (0-5/HPF); Squamous Epithelial Cell Urine None Seen (0-5/HPF); Urine Volume 10mL (spun); WBC Urine None Seen (0-5/HPF)
[2024-09-03] MEDS: metroNIDAZOLE 500 MG TABLET PO (19:08)
[2024-09-03] MEDS: CIPROFLOXACIN 250 MG TABLET 500 MG PO (19:09)
[2024-09-03 19:57] LABS: Urine N gonorrhoeae NOT DETECTED
[2024-09-03 20:01] LABS: Urine Chlamydia NOT DETECTED
== END 2024-09-03 19:35 | disposition home or self-care (01) ==
PROVIDERS: Emergency Medicine; Emergency Provider Physician Assistant; Family Provider Family Medicine; PCP Family Medicine
DX: K59.00 Constipation, unspecified (principal); K62.89 Other specified diseases of anus and rectum; G89.29 Other chronic pain; Z79.891 Long term (current) use of opiate analgesic
CPT/HCPCS: 36415; 74018; 74177; 80053; 81003; 81015; 83690; 85025; 87491; 87591; 96374; 99284; J2270; J2405; Q9967

== ENCOUNTER → 2024-10-11 09:41 | Outpatient (CLI) | payer OTHER, SELFPAY ==
[2024-06-10 22:35] VITALS: BMI 43.0
[2024-10-13 20:40] LABS: Immunoglobulin E 66 IU/mL (6-495)
== END ==
PROVIDERS: Family Provider Family Medicine; PCP Family Medicine; Referring Provider Internal Medicine; Visit Provider Internal Medicine
DX: J45.50 Severe persistent asthma, uncomplicated (principal)
CPT/HCPCS: 36415; 82785

== ENCOUNTER 2024-11-19 11:29 | Emergency (ER) | payer OTHER, SELFPAY ==
[2024-06-10 22:35] VITALS: BMI 43.0
[2024-11-19 11:36] VITALS: BP 156/106; PULSE 104; RESP 17; TEMP 36.9; O2SAT 98; BMI 41.7
--- NOTE | 2024-11-19 13:09 | ED.WOUNDLAC ---
HPI - Wound/Laceration <Tika Ojeda PA-C - Last Filed: 11/19/24 15:18> General Chief Complaint: Wound/Laceration Stated Complaint: vein busted on left foot- bleeding Time Seen by Provider: 11/19/24 12:47 Source: patient Mode of arrival: Wheelchair History of Present Illness HPI narrative: Mr. George is a very pleasant 54-year-old male with a past medical history of bilateral lower extremity varicose veins, chronic pain, diabetes, hypertension who presents to the emergency department for bleeding varicose vein on his left foot that started this morning. Patient denies any direct trauma to the foot but states that after taking a shower and putting his socks on he noticed a vein started bleeding on the top of his left foot. He has had bleeding varicose veins in the past that have required cautery, suture closure and other management. He is currently in the process of seeing a vascular surgeon for definitive management of his varicose veins. At this time there is a pressure dressing on the left foot with no bleeding through. States that when it did start bleeding it was coming out quite rapidly. At this time he denies any pain, any lightheadedness shortness of breath or any other symptoms or concerns. He is not on any blood thinners. Related Data Home Medications Medication Instructions Recorded Confirmed dapagliflozin propanediol [Farxiga] 10 mg PO DAILY 10/07/23 10/03/24 spironolactone 25 mg tablet 25 mg PO BID 12/28/23 10/03/24 furosemide 40 mg tablet See Rx Instructions .Route 06/10/24 10/03/24 .COMPLEX PRN Swelling prednisone 10 mg tablet 10 mg PO BEDTIME 06/10/24 10/03/24 Previous Rx's Medication Instructions Recorded epinephrine 0.3 mg/0.3 mL 0.3 mg (0.3 mL) IM SEE 07/17/19 injection, auto-injector (EpiPen INSTRUCTIONS #2 ea 2-Nura) ferrous gluconate 324 mg (37.5 mg 324 mg PO DAILY #90 tabs 11/23/23 iron) tablet losartan 100 mg tablet 100 mg PO DAILY #90 tabs 02/11/24 ipratropium 0.5 mg-albuterol 3 mg 3 ml INH [id number] PRN Shortness Of 06/12/24 (2.5 mg base)/3 mL nebulization Breath #120 doses soln levofloxacin 750 mg tablet 750 mg PO DAILY #4 tabs 06/12/24 nicotine 14 mg/24 hr daily 1 patch transdermal DAILY #14 ea 06/12/24 transdermal patch (Nicoderm CQ) albuterol sulfate 90 mcg/actuation See Rx Instructions .Route 07/03/24 aerosol inhaler .COMPLEX #8.5 grams beclomethasone dipropionate 80 See Rx Instructions .Route 08/02/24 mcg/actuation HFA breath activated .COMPLEX #10.6 grams aerosol (Qvar RediHaler) dupilumab 300 mg/2 mL subcutaneous 300 mg (2 mL) SUBCUT Q2W #4 mL 08/18/24 pen injector (DupixDroid system master) amlodipine 10 mg tablet 10 mg PO DAILY #90 tabs 09/01/24 tiotropium bromide 18 mcg capsule See Rx Instructions .Route 09/05/24 with inhalation device (Spiriva .COMPLEX #30 caps with HandiHaler) metformin 500 mg tablet See Rx Instructions .Route 09/25/24 .COMPLEX #360 tabs tirzepatide 2.5 mg/0.5 mL 2.5 mg (0.5 mL) SUBCUT QWEEK #2 mL 10/03/24 subcutaneous pen injector (Mounjaro) tirzepatide 5 mg/0.5 mL 5 mg (0.5 mL) SUBCUT QWEEK #2 mL 10/03/24 subcutaneous pen injector (Mounjaro) escitalopram oxalate 20 mg tablet 20 mg PO DAILY #90 tabs 10/09/24 glimepiride 4 mg tablet 8 mg (2 x 4 mg) PO BID #120 tabs 10/25/24 diazepam 5 mg tablet See Rx Instructions .Route 10/27/24 .COMPLEX #15 tabs finasteride 5 mg tablet 5 mg PO DAILY #90 tabs 10/30/24 fentanyl 12 mcg/hr transdermal 1 patch transdermal Q96H #5 ea 11/02/24 patch gabapentin 600 mg tablet 1,200 mg (2 x 600 mg) PO BID #240 11/06/24 tabs cyclobenzaprine 10 mg tablet 10 mg PO TID #180 tabs 11/07/24 mometasone-formoterol HFA 200 See Rx Instructions .Route 11/14/24 mcg-5 mcg/actuation aerosol .COMPLEX #13 grams inhaler (Dulera) oxycodone-acetaminophen 10 mg-325 See Rx Instructions PO .COMPLEX 11/14/24 mg tablet (Percocet) PRN pain #180 tabs Allergies Allergy/AdvReac Type Severity Reaction Status Date / Time cephalexin [CEPHALEXIN] Allergy Mild FACIAL Verified 11/19/24 11:36 SWELLING terbinafine [TERBINAFINE] Allergy Unknown Unknown Verified 11/19/24 11:36 nut - unspecified Allergy Anaphylaxis Verified 11/19/24 11:36 benralizumab [From Fasenra] AdvReac Severe SOB Verified 11/19/24 11:36 Cephalosporins AdvReac Intermediate Vomiting Verified 11/19/24 11:36 [CEPHALOSPORINS] Penicillins [PENICILLINS] AdvReac Intermediate Vomiting Verified 11/19/24 11:36 Beta-Blockers AdvReac Mild ASTHMA Verified 11/19/24 11:36 (Beta-Adrenergic Bloc doxycycline [DOXYCYCLINE] AdvReac Mild HIVES Verified 11/19/24 11:36 nadolol [NADOLOL] AdvReac Mild AGGREVATES Verified 11/19/24 11:36 ASTHMA semaglutide [From Ozempic] AdvReac Mild CONSTIPATIO Verified 11/19/24 11:36 N Sulfa (Sulfonamide AdvReac Mild VOMITING Verified 11/19/24 11:36 Antibiotics) [SULFA (SULFONAMIDE ANTIBIOTICS)] Review of Systems <Tika Ojeda PA-C - Last Filed: 11/19/24 15:18> Review of Systems ROS Unobtainable: All systems reviewed & are unremarkable except as noted in HPI and below Patient History <Tika Ojeda PA-C - Last Filed: 11/19/24 15:18> Medical History Tobacco use disorder EMA (generalized anxiety disorder) OCD (obsessive compulsive disorder) 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 Iron deficiency anemia Chronic pain syndrome Cervical stenosis of spinal canal Hypertension Hyperlipidemia Varicose vein of leg Myocarditis Surgical History No pertinent past surgical history Social History marital status: unmarried,single household members: significant other lives independently: Yes occupational status: disabled Smoking Status: Current every day smoker alcohol intake: never substance use type: does not use Smoking Status: Current every day smoker tobacco type: cigarettes alcohol intake frequency: other Exam <MARCELLE Dawkins Last Filed: 11/19/24 15:18> Narrative Exam Narrative: GENERAL: 54 year old patient appears stated age. Overweight patient, in no acute distress. HEAD: Atraumatic. Normocephalic. RESPIRATORY: ?Nonlabored respirations. ?Speaking in clear, full sentences. EXTREMITIES: Extensive bilateral lower extremity varicose veins. On the dorsal lateral aspect of the left foot there is a pinpoint area of scabbing where patient had bleeding earlier today however it has stopped at this time. After cleansing this area and with some movement of the foot, slow bleeding trickle did resume. No pulsatile bleeding. There strong DP and PT pulses bilaterally and brisk capillary refills on the toes. NEURO: AOx3. ?Clear speech. ?Moves all 4 extremities appropriately. Sensation intact to light touch on distal toes. SKIN: No rash or erythema of visible areas Initial Vital Signs Initial Vital Signs: Vital Signs Temperature 98.5 F 11/19/24 11:36 Pulse Rate 104 H 11/19/24 11:36 Respiratory Rate 17 11/19/24 11:36 Blood Pressure 156/106 H 11/19/24 11:36 Pulse Oximetry 98 11/19/24 11:36 Oxygen Delivery Method Room Air 11/19/24 11:36 <Cait Bonilla DO - Last Filed: 11/20/24 08:33> Initial Vital Signs Initial Vital Signs: Vital Signs Temperature 98.5 F 11/19/24 11:36 Pulse Rate 104 H 11/19/24 11:36 Respiratory Rate 17 11/19/24 11:36 Blood Pressure 156/106 H 11/19/24 11:36 Pulse Oximetry 98 11/19/24 11:36 Oxygen Delivery Method Room Air 11/19/24 11:36 Procedures <Tika Ojeda PA-C - Last Filed: 11/19/24 15:18> [facility] [place] Procedure: Cessation of Varicose Vein Bleeding. Side (if applicable): left Location: dorsal foot Technique/Description of procedure performed: Dorsal aspect of the left foot was cleansed extensively with chlorhexidine. 1 mL of lidocaine 1% with epinephrine was used to anesthetize the wound. A 5-0 Ethilon suture was used to make a figure of 8 stitch to stop the bleeding varicose vein. There was immediate cessation of bleeding. Patient tolerated procedure well. Course <Tika Ojeda PA-C - Last Filed: 11/19/24 15:18> Vital Signs Vital signs: Vital Signs - 8 hr 11/19/24 11:36 11/19/24 14:05 Temperature 98.5 F Pulse Rate 104 H 85 Respiratory Rate 17 16 Blood Pressure 156/106 H 140/69 Pulse Oximetry 98 99 Oxygen Delivery Method Room Air Room Air <Cait Bonilla DO - Last Filed: 11/20/24 08:33> Vital Signs Vital signs: Vital Signs - 8 hr 11/19/24 11:36 11/19/24 14:05 Temperature 98.5 F Pulse Rate 104 H 85 Respiratory Rate 17 16 Blood Pressure 156/106 H 140/69 Pulse Oximetry 98 99 Oxygen Delivery Method Room Air Room Air MDM - Wound/Laceration <Tika Ojeda PA-C - Last Filed: 11/19/24 15:18> Medical Records Attestation: I reviewed the patient's medical records. MDM Narrative Medical decision making narrative: 54-year-old male with a past medical history of bilateral lower extremity varicose veins, chronic pain, diabetes, hypertension who presents to the emergency department for bleeding varicose vein on his left foot that started this morning. Differential diagnosis includes but isn't limited to bleeding varicose vein, wound, laceration, etc. On exam the patient is in no acute distress, nontoxic appearing. On his left dorsal foot there is a pinpoint scab, after having the patient move his foot around and after cleansing the foot this bleeding did resume. After shared decision-making with the patient, lidocaine with epinephrine was used to anesthetize the wound and then a [id number] stitch was used to stop the bleeding. There was immediate cessation of bleeding. Surgicel was then applied with a gentle pressure dressing. No return of bleeding during his ED stay. We discussed proper wound care, proper pressure dressing, signs and symptoms to return to ED for. Advised he have the suture removed in about a week. Patient is currently in the process of following up with a vascular surgeon for further management of his varicose veins. ED return precautions discussed. He verbalized understanding all information is agreeable to the plan. He is stable for discharge home. Discharge Plan Departure Patient Disposition: Home Clinical Impression: Bleeding from varicose veins of left lower extremity Instructions: How to Care for a Laceration After Repair Activity Restrictions/Additional Instructions: Today you had a bleeding varicose vein on the left foot. We have placed one figure of eight suture to stop they bleeding. This need to be removed in about 7 days. . You may do this in your doctor's office, the [id number], or here if necessary. Please keep the dressing on your wound clean, dry, and intact for the next 24 hours. After this time, you may remove the dressing and gently clean the wound with soap and water, then pat dry. Keep the wound clean and covered with antibiotic ointment and a pressure dressing at all times.. Avoid soaking the wound in any water such as a bath, pool, or the ocean. If you develop any signs of wound infection such as increased redness, pus drainage, streaking redness, or fevers, please return to the ER immediately for evaluation. Once sutures are removed and the wound has healed, apply sunscreen daily to reduce the appearance of scars. If your wound starts to bleed again, apply direct pressure for 15 minutes. If you continue to have profuse bleeding, come to the emergency department immediately. Please follow up with your primary care doctor within the next 2-3 days for ER follow-up. (If you do not have a PCP you can call [phone]. ?to schedule an appointment with an [facility] Primary Care Provider) IF YOU DEVELOP ANY NEW OR WORSENING SYMPTOMS, RETURN TO THE ER! Please read the attached instructions, they highlight more specific treatments and interventions for you at home. Thank you for letting me participate in your care, Tika Ojeda PA-C Prescriptions: No Action escitalopram oxalate 20 mg tablet 20 mg PO DAILY Qty: 90 1RF losartan 100 mg tablet 100 mg PO DAILY Qty: 90 3RF albuterol sulfate 90 mcg/actuation HFA aerosol inhaler See Rx Instructions .ROUTE .COMPLEX Qty: 8.5 5RF Dose Instruction: inhale 2 puffs by mouth every 6 hours if needed for shortness of breath or wheezing Rx Instructions: inhale 2 puffs by mouth every 6 hours if needed for shortness of breath or wheezing Qvar RediHaler 80 mcg/actuation HFA aerosol breath activated See Rx Instructions .ROUTE .COMPLEX Qty: 10.6 3RF Dose Instruction: inhale 1 puff by mouth every 12 hours Rx Instructions: inhale 1 puff by mouth every 12 hours amlodipine 10 mg tablet 10 mg PO DAILY Qty: 90 1RF Rx Instructions: take 1 tablet by mouth once daily tiotropium bromide [Spiriva with HandiHaler] 18 mcg capsule, w/inhalation device See Rx Instructions .ROUTE .COMPLEX Qty: 30 3RF Dose Instruction: inhale THE contents of 1 capsule in THE HANDIHALER once daily Rx Instructions: inhale THE contents of 1 capsule in THE HANDIHALER once daily metformin 500 mg tablet See Rx Instructions .ROUTE .COMPLEX Qty: 360 1RF Rx Instructions: take 2 tablets by mouth twice a day with meals glimepiride 4 mg tablet 8 mg PO BID Qty: 120 0RF diazepam 5 mg tablet See Rx Instructions .ROUTE .COMPLEX Qty: 15 0RF Rx Instructions: Take 1 tablet at bedtime as needed for sleep. to last 30 days finasteride 5 mg tablet 5 mg PO DAILY Qty: 90 1RF Rx Instructions: take 1 tablet by mouth once daily fentanyl 12 mcg/hr patch 72 hour 1 patch transdermal Q96H Qty: 5 0RF Rx Instructions: Q4days gabapentin 600 mg tablet 1,200 mg PO BID Qty: 240 0RF cyclobenzaprine 10 mg tablet 10 mg PO TID Qty: 180 0RF Rx Instructions: take 1 tablet by mouth three times a day if needed for SPASM(S) Dulera 200-5 mcg/actuation HFA aerosol inhaler See Rx Instructions .ROUTE .COMPLEX Qty: 13 6RF Dose Instruction: inhale 2 puffs by mouth and INTO THE LUNGS twice a day Rx Instructions: inhale 2 puffs by mouth and INTO THE LUNGS twice a day oxycodone-acetaminophen [Percocet] 10-325 mg tablet See Rx Instructions PO .COMPLEX PRN (Reason: pain) Qty: 180 0RF Rx Instructions: take 2 tablets by mouth every 4 hours if needed for pain. epinephrine [EpiPen 2-Nura] 0.3 mg/0.3 mL auto-injector 0.3 mg IM SEE INSTRUCTIONS Qty: 2 5RF spironolactone 25 mg tablet 25 mg PO BID Mounjaro 2.5 mg/0.5 mL pen injector 2.5 mg SUBCUT QWEEK Qty: 2 0RF Rx Instructions: for 4 weeks. Did not tolerate ozempic due to constipation Mounjaro 5 mg/0.5 mL pen injector 5 mg SUBCUT QWEEK Qty: 2 0RF Rx Instructions: take weekly after finishing 2.5mg dosage. dapagliflozin propanediol [Farxiga] 10 mg PO DAILY ferrous gluconate 324 mg (37.5 mg iron) tablet 324 mg PO DAILY Qty: 90 3RF furosemide 40 mg tablet See Rx Instructions .ROUTE .COMPLEX PRN (Reason: Swelling) Rx Instructions: 1-2 tabs as needed for swelling prednisone 10 mg tablet 10 mg PO BEDTIME ipratropium-albuterol 0.5 mg-3 mg(2.5 mg base)/3 mL Solution For Nebulization 3 ml INH RTQ6HR PRN (Reason: Shortness Of Breath) Qty: 120 2RF levofloxacin 750 mg tablet 750 mg PO DAILY Qty: 4 0RF nicotine [Nicoderm CQ] 14 mg/24 hr patch 24 hour 1 patch transdermal DAILY Qty: 14 2RF Dupixent Pen 300 mg/2 mL pen injector 300 mg SUBCUT Q2W Qty: 4 12RF Rx Instructions: 600 mg once then 300 mg every 2 weeks Referrals: Ricardo Victoria MD [Primary Care Provider] - Stand Alone Forms: Patient Portal/API/Survey ED Sign-out <Cait Bonilla DO - Last Filed: 11/20/24 08:33> Cosign ED Attending Cosignature Attestation: I was available for consultation.
[2024-11-19 14:05] VITALS: BP 140/69; PULSE 85; RESP 16; O2SAT 99
== END 2024-11-19 14:05 | disposition home or self-care (01) ==
PROVIDERS: Emergency Provider Physician Assistant; Family Provider Family Medicine; PCP Family Medicine
DX: I83.892 Varicose veins of left lower extremity with other complications (principal)
CPT/HCPCS: 37799; 99283; 99284

== ENCOUNTER → 2024-12-27 06:56 | Outpatient (CLI) | payer OTHER, SELFPAY ==
[2024-06-10 22:35] VITALS: BMI 43.0
[2024-12-27 07:40] LABS: Appearance Urine UA CLEAR; Bilirubin Urine UA NEGATIVE (NEGATIVE); Color Urine UA YELLOW; Glucose Urine UA 3+ g/dL (Negative); Ketones Urine UA NEGATIVE (NEGATIVE); Leukocyte Esterase Urine UA NEGATIVE (NEGATIVE); Nitrite Urine UA NEGATIVE (Negative); Occult Blood Urine UA NEGATIVE (Negative); Protein Urine UA NEGATIVE (Negative); Specific Gravity Urine UA <=1.005 (1.000-1.035); Urobilinogen Urine UA 0.2 E.U./dL (0.2)
[2024-12-27 07:44] LABS: Add Manual Diff / Slide Review NO; Basophils Absolute Auto 0 /uL (0-100); Basophils Percent Auto 0.4 % (0-2); Eosinophils Absolute Auto 100 /uL (0-450); Eosinophils Percent Auto 1.4 % (2-4); Hemoglobin 11.9 g/dL (13.5-17.5); Lymphocytes Absolute Auto 2900 /uL (1100-4500); Lymphocytes Percent Auto 27.6 % (25-40); Mean Corpuscular HGB Conc 32.2 % (30-36); Mean Corpuscular Hemoglobin 24.4 PG (26-34); Mean Corpuscular Volume 75.6 fL (80-100); Monocytes Absolute Auto 900 /uL (0-900); Monocytes Percent Auto 8.2 % (3-14); Neutrophils Absolute Auto 6600 /uL (1500-7000); Neutrophils Percent Auto 62.4 % (50-75); Platelet Count 249 X10^3/uL (150-400); Red Blood Cell Count 4.89 X10^6/uL (4.5-5.9); Red Cell Distribution Width 18.9 % (11.6-14.8); White Blood Cell Count 10.6 X10^3/uL (4.5-11.0)
[2024-12-27 07:45] LABS: Urine Volume 10mL (spun)
[2024-12-27 07:46] LABS: Bacteria Urine None Seen; RBC Urine None Seen (0-5/HPF); Squamous Epithelial Cell Urine None Seen (0-5/HPF); WBC Urine None Seen (0-5/HPF)
[2024-12-27 07:52] LABS: Hemoglobin A1C% w Est Avg Glu 7.9 % (4.0-6.0)
[2024-12-27 07:55] LABS: Creatinine Urine Random 43.87 mg/dL; Protein (Total) Urine Random 24 mg/dL (0-12); Protein Creatinine Ratio Urine 0.54 GRAM/24H
[2024-12-27 07:57] LABS: Albumin 4.4 g/dL (3.5-5.0); BUN Creatinine Ratio 25.8 (6-22); Blood Urea Nitrogen 24 mg/dL (9-20); Calcium 9.6 mg/dL (8.4-10.2); Carbon Dioxide 26 mmol/L (22-32); Chloride 98 mmol/L (98-107); Estimated Glomerular Filt Rate > 60 mL/min (>60); Glucose 187 mg/dL (70-100); HEMOLYSIS < 15 (0-50); Phosphorous 4.1 mg/dL (2.5-4.5); Potassium 4.7 mmol/L (3.4-5.1); Sodium 134 mmol/L (137-145)
[2024-12-27 07:59] LABS: Microalbumin Urine Random 7.7 mg/dL (0-1.6)
[2024-12-27 08:05] LABS: HEMOLYSIS < 15 (0-50); Iron 36 ug/dL (49-181)
[2024-12-27 08:06] LABS: Alanine Aminotransferase 24 IU/L (<50); Albumin 4.5 g/dL (3.5-5.0); Albumin Globulin Ratio 1.6 (1.0-2.8); Alkaline Phosphatase 124 U/L (38-126); Aspartate Aminotransferase 19 IU/L (17-59); BUN Creatinine Ratio 25.5 (6-22); Bilirubin Total 0.4 mg/dL (0.2-1.3); Blood Urea Nitrogen 24 mg/dL (9-20); Calcium 9.6 mg/dL (8.4-10.2); Carbon Dioxide 27 mmol/L (22-32); Chloride 98 mmol/L (98-107); Estimated Glomerular Filt Rate > 60 mL/min (>60); Globulin 2.8 g/dL (1.7-4.1); Glucose 187 mg/dL (70-100); HEMOLYSIS < 15 (0-50); Potassium 4.7 mmol/L (3.4-5.1); Sodium 134 mmol/L (137-145); Total Protein 7.3 g/dL (6.3-8.2)
[2024-12-27 08:15] LABS: Percent Iron Saturation 10 % (20-50); Total Iron Binding Capacity 347 ug/dL (261-462); Transferrin 291 mg/dL (206-381)
[2024-12-27 08:40] LABS: Ferritin 8 ng/mL (18-464)
== END ==
PROVIDERS: Family Provider Family Medicine; PCP Family Medicine; Referring Provider Internal Medicine Nephrology; Visit Provider Internal Medicine Nephrology
DX: R80.9 Proteinuria, unspecified (principal); E11.9 Type 2 diabetes mellitus without complications; I10 Essential (primary) hypertension; G89.4 Chronic pain syndrome; M48.02 Spinal stenosis, cervical region; J45.50 Severe persistent asthma, uncomplicated; D50.9 Iron deficiency anemia, unspecified
CPT/HCPCS: 36415; 80053; 80069; 81001; 82043; 82570; 82728; 83036; 83540; 83550; 84156; 85025

== ENCOUNTER 2025-01-24 10:31 | Emergency (ER) | payer OTHER, SELFPAY ==
[2024-06-10 22:35] VITALS: BMI 43.0
[2025-01-24 10:52] VITALS: BP 161/71; PULSE 101; RESP 18; TEMP 36.6; O2SAT 99; BMI 38.3
--- NOTE | 2025-01-24 11:43 | ED_ITS ---
<Statement entered by Tika Ojeda PA-C - 01/24/25 19:17> Please see my full H&P note from same day for patient encounter details. HPI - Neck Pain/Injury General Chief Complaint: Neck Pain/Injury Stated Complaint: Nausea, leg cramps ,neck pain x 2 weeks Time Seen by Provider: 01/24/25 11:43 Source: patient, RN notes reviewed and old records reviewed Mode of arrival: Ambulatory Limitations: no limitations Related Data Home Medications Medication Instructions Recorded Confirmed dapagliflozin propanediol [Farxiga] 10 mg PO DAILY 10/07/23 12/29/24 spironolactone 25 mg tablet 25 mg PO BID 12/28/23 12/29/24 furosemide 40 mg tablet See Rx Instructions .Route 06/10/24 12/29/24 .COMPLEX PRN Swelling Previous Rx's Medication Instructions Recorded epinephrine 0.3 mg/0.3 mL 0.3 mg (0.3 mL) IM SEE 07/17/19 injection, auto-injector (EpiPen INSTRUCTIONS #2 ea 2-Nura) ferrous gluconate 324 mg (37.5 mg 324 mg PO DAILY #90 tabs 11/23/23 iron) tablet losartan 100 mg tablet 100 mg PO DAILY #90 tabs 02/11/24 ipratropium 0.5 mg-albuterol 3 mg 3 ml INH RTQ6HR PRN Shortness Of 06/12/24 (2.5 mg base)/3 mL nebulization Breath #120 doses soln levofloxacin 750 mg tablet 750 mg PO DAILY #4 tabs 06/12/24 nicotine 14 mg/24 hr daily 1 patch transdermal DAILY #14 ea 06/12/24 transdermal patch (Nicoderm CQ) dupilumab 300 mg/2 mL subcutaneous 300 mg (2 mL) SUBCUT Q2W #4 mL 08/18/24 pen injector (Dupixent) metformin 500 mg tablet See Rx Instructions .Route 09/25/24 .COMPLEX #360 tabs escitalopram oxalate 20 mg tablet 20 mg PO DAILY #90 tabs 10/09/24 glimepiride 4 mg tablet 8 mg (2 x 4 mg) PO BID #120 tabs 10/25/24 finasteride 5 mg tablet 5 mg PO DAILY #90 tabs 10/30/24 gabapentin 600 mg tablet 1,200 mg (2 x 600 mg) PO BID #240 11/06/24 tabs cyclobenzaprine 10 mg tablet 10 mg PO TID #180 tabs 11/07/24 mometasone-formoterol HFA 200 See Rx Instructions .Route 11/14/24 mcg-5 mcg/actuation aerosol .COMPLEX #13 grams inhaler (Dulera) beclomethasone dipropionate 80 See Rx Instructions .Route 11/22/24 mcg/actuation HFA breath activated .COMPLEX #10.6 grams aerosol (Qvar RediHaler) varenicline tartrate 0.5 mg (11)-1 See Rx Instructions PO PER PKG DIR 12/04/24 mg (42) tablets in a dose pack #53 ea varenicline tartrate 1 mg tablet 1 mg PO BID #56 tabs 12/04/24 albuterol sulfate 90 mcg/actuation See Rx Instructions .Route 12/06/24 aerosol inhaler .COMPLEX #8.5 grams tirzepatide 7.5 mg/0.5 mL 7.5 mg (0.5 mL) SUBCUT QWEEK #2 mL 12/29/24 subcutaneous pen injector (Mounjaro) buprenorphine 2 mg-naloxone 0.5 mg See Rx Instructions buccal 01/04/25 sublingual film (Suboxone) .COMPLEX #30 ea amlodipine 10 mg tablet 10 mg PO DAILY #90 tabs 01/11/25 tiotropium bromide 18 mcg capsule See Rx Instructions .Route 01/11/25 with inhalation device (Spiriva .COMPLEX #30 caps with HandiHaler) oxycodone-acetaminophen 10 mg-325 See Rx Instructions PO .COMPLEX 01/19/25 mg tablet (Percocet) PRN pain #180 tabs prednisone 10 mg tablet 10 mg PO BEDTIME #90 tabs 01/19/25 diazepam 2 mg tablet 4 mg (2 x 2 mg) PO BEDTIME PRN 01/23/25 sleep #60 tabs lidocaine 5 % topical patch 1 patch topical DAILY #30 ea 01/24/25 (Lidoderm) ondansetron 4 mg disintegrating 4 mg PO Q8H PRN nausea and 01/24/25 tablet vomiting #14 tabs Allergies Allergy/AdvReac Type Severity Reaction Status Date / Time cephalexin [CEPHALEXIN] Allergy Mild FACIAL Verified 12/29/24 10:05 SWELLING terbinafine [TERBINAFINE] Allergy Unknown Unknown Verified 12/29/24 10:05 nut - unspecified Allergy Anaphylaxis Verified 12/29/24 10:05 benralizumab [From Fasenra] AdvReac Severe SOB Verified 12/29/24 10:05 Cephalosporins AdvReac Intermediate Vomiting Verified 12/29/24 10:05 [CEPHALOSPORINS] Penicillins [PENICILLINS] AdvReac Intermediate Vomiting Verified 12/29/24 10:05 Beta-Blockers AdvReac Mild ASTHMA Verified 12/29/24 10:05 (Beta-Adrenergic Bloc doxycycline [DOXYCYCLINE] AdvReac Mild HIVES Verified 12/29/24 10:05 nadolol [NADOLOL] AdvReac Mild AGGREVATES Verified 12/29/24 10:05 ASTHMA semaglutide [From Ozempic] AdvReac Mild CONSTIPATIO Verified 12/29/24 10:05 N Sulfa (Sulfonamide AdvReac Mild VOMITING Verified 12/29/24 10:05 Antibiotics) [SULFA (SULFONAMIDE ANTIBIOTICS)] Review of Systems Review of Systems ROS Unobtainable: All systems reviewed & are unremarkable except as noted in HPI and below Patient History Medical History Tobacco use disorder EMA (generalized anxiety disorder) OCD (obsessive compulsive disorder) 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 Iron deficiency anemia Chronic pain syndrome Cervical stenosis of spinal canal Hypertension Hyperlipidemia Varicose vein of leg Myocarditis Surgical History No pertinent past surgical history Social History marital status: unmarried,single household members: significant other lives independently: Yes occupational status: disabled alcohol intake: never substance use type: does not use tobacco type: cigarettes alcohol intake frequency: other Exam Initial Vital Signs Initial Vital Signs: Vital Signs Temperature 98 F 01/24/25 10:52 Pulse Rate 101 H 01/24/25 10:52 Respiratory Rate 18 01/24/25 10:52 Blood Pressure 161/71 H 01/24/25 10:52 Pulse Oximetry 99 01/24/25 10:52 Oxygen Delivery Method Room Air 01/24/25 10:52 Course Orders Ordered: Discontinued Medications Sodium Chloride (Normal Saline 0.9%) 1,000 mls @ 1,000 mls/hr IV BOLUS ONE Stop: 01/24/25 13:57 Last Infusion: 01/24/25 14:36 Dose: Infused Documented By: Admin: 01/24/25 13:34 Dose: 1,000 mls/hr Documented By: SHIRA Lidocaine (Lidocaine 5% Patch) 1 each TOP NOW ONE Stop: 01/24/25 12:07 Last Admin: 01/24/25 12:28 Dose: 1 each Documented By: MADELIN Ondansetron HCl (Ondansetron 4 Mg/2 Ml Inj) 4 mg IV NOW ONE Stop: 01/24/25 12:07 Last Admin: 01/24/25 12:27 Dose: 4 mg Documented By: MADELIN Vital Signs Vital signs: Vital Signs - 8 hr 01/24/25 10:52 Temperature 98 F Pulse Rate 101 H Respiratory Rate 18 Blood Pressure 161/71 H Pulse Oximetry 99 Oxygen Delivery Method Room Air MDM - Neck Pain/Injury Lab Data 01/24/25 12:20 01/24/25 12:20 Labs: Lab Results 01/24/25 Range/Units 12:20 WBC 10.6 (4.5-11.0) X10^3/uL RBC 4.62 (4.5-5.9) X10^6/uL Hgb 11.5 L (13.5-17.5) g/dL Hct 35.3 L (41-53) % MCV 76.5 L (80-100) fL MCH 24.9 L (26-34) PG MCHC 32.6 (30-36) % RDW 18.1 H (11.6-14.8) % Plt Count 257 (150-400) X10^3/uL Neut % (Auto) 86.9 H (50-75) % Lymph % (Auto) 7.4 L (25-40) % Luna % (Auto) 4.8 (3-14) % Eos % (Auto) 0.4 L (2-4) % Baso % (Auto) 0.5 (0-2) % Neut # (Auto) 9200 H (2703-5960) /uL Lymph # (Auto) 800 L (0870-4173) /uL Luna # (Auto) 500 (0-900) /uL Eos # (Auto) 0 (0-450) /uL Baso # (Auto) 100 (0-100) /uL Sodium 131 L (137-145) mmol/L Potassium 5.2 H (3.4-5.1) mmol/L Chloride 97 L (98-107) mmol/L Carbon Dioxide 24 (22-32) mmol/L BUN 29 H (9-20) mg/dL Creatinine 0.92 (0.66-1.25) mg/dL Estimated GFR > 60 (>60) mL/min BUN/Creatinine Ratio 31.5 H (6-22) Glucose 230 H (70-99) mg/dL Calcium 9.3 (8.4-10.2) mg/dL Magnesium 1.8 (1.6-2.3) mg/dL Total Bilirubin 0.3 (0.2-1.3) mg/dL AST 23 (17-59) IU/L ALT 29 (<50) IU/L Alkaline Phosphatase 114 (38-126) U/L Total Protein 7.6 (6.3-8.2) g/dL Albumin 4.5 (3.5-5.0) g/dL Globulin 3.1 (1.7-4.1) g/dL Albumin/Globulin Ratio 1.5 (1.0-2.8) Lipase 37 (23-300) U/L MDM Narrative Medical decision making narrative: Patient was not seen by myself. Was seen by PA and they have documented their encounter on a separate chart. Unable to cancel this document. Discharge Plan Departure Patient Disposition: Home Clinical Impression: Nausea, Bilateral leg cramps, Hyponatremia, Hyperkalemia Instructions: DI for Nausea -- Adult, DI for Nocturnal Leg Cramps Activity Restrictions/Additional Instructions: Dear Mr. George, Thank you for coming to the emergency department. Today you were evaluated for neck pain, nausea, leg cramping. Your lab work did reveal that your sodium was low and your potassium was slightly elevated. You received IV fluids, IV nausea medication. I would like you to use the prescribed nausea medication if needed for breakthrough nausea, and also make sure to hydrate frequently. I do recommend that you have repeat labs with your primary care doctor to recheck your electrolyte abnormalities. Please return to the ER if you develop any new or worsening symptoms, continue your home pain management regimen, use the nausea medication as needed you may also use topical lidocaine patches as well. Please follow up with your primary care doctor within the next 2-3 days for ER follow-up. (If you do not have a PCP you can call [phone]. ?to schedule an appointment with an [facility] Primary Care Provider) IF YOU DEVELOP ANY NEW OR WORSENING SYMPTOMS, RETURN TO THE ER! Please read the attached instructions, they highlight more specific treatments and interventions for you at home. Thank you for letting me participate in your care, Tkia Ojeda PA-C Prescriptions: New ondansetron 4 mg tablet,disintegrating 4 mg PO Q8H PRN (Reason: nausea and vomiting) Qty: 14 0RF lidocaine [Lidoderm] 5 % adhesive patch,medicated 1 patch topical DAILY Qty: 30 0RF Rx Instructions: leave on most painful area for up to 12 hrs No Action escitalopram oxalate 20 mg tablet 20 mg PO DAILY Qty: 90 1RF varenicline tartrate 0.5 mg (11)- 1 mg (42) tablets,dose pack See Rx Instructions PO PER PKG DIR Qty: 53 0RF Rx Instructions: PO PER PKG DIR varenicline tartrate 1 mg tablet 1 mg PO BID Qty: 56 2RF Rx Instructions: start after completing initial titration starter pack losartan 100 mg tablet 100 mg PO DAILY Qty: 90 3RF metformin 500 mg tablet See Rx Instructions .ROUTE .COMPLEX Qty: 360 1RF Rx Instructions: take 2 tablets by mouth twice a day with meals glimepiride 4 mg tablet 8 mg PO BID Qty: 120 0RF finasteride 5 mg tablet 5 mg PO DAILY Qty: 90 1RF Rx Instructions: take 1 tablet by mouth once daily gabapentin 600 mg tablet 1,200 mg PO BID Qty: 240 0RF cyclobenzaprine 10 mg tablet 10 mg PO TID Qty: 180 0RF Rx Instructions: take 1 tablet by mouth three times a day if needed for SPASM(S) Dulera 200-5 mcg/actuation HFA aerosol inhaler See Rx Instructions .ROUTE .COMPLEX Qty: 13 6RF Dose Instruction: inhale 2 puffs by mouth and INTO THE LUNGS twice a day Rx Instructions: inhale 2 puffs by mouth and INTO THE LUNGS twice a day Qvar RediHaler 80 mcg/actuation HFA aerosol breath activated See Rx Instructions .ROUTE .COMPLEX Qty: 10.6 3RF Dose Instruction: inhale 1 puff by mouth every 12 hours Rx Instructions: inhale 1 puff by mouth every 12 hours albuterol sulfate 90 mcg/actuation HFA aerosol inhaler See Rx Instructions .ROUTE .COMPLEX Qty: 8.5 5RF Dose Instruction: inhale 2 puffs by mouth every 6 hours if needed for shortness of breath or wheezing Rx Instructions: inhale 2 puffs by mouth every 6 hours if needed for shortness of breath or wheezing buprenorphine-naloxone [Suboxone] 2-0.5 mg film See Rx Instructions buccal .COMPLEX Qty: 30 0RF Rx Instructions: place 1/4 strip/tab under side of tongue twice daily for 1 week, then place 1/4 strip/tab under side of tongue three times daily for 1 week thereafter. Stop fentanyl. Patient under close supervision of PCP, specialist, and skilled nursing case manager tiotropium bromide [Spiriva with HandiHaler] 18 mcg capsule, w/inhalation device See Rx Instructions .ROUTE .COMPLEX Qty: 30 3RF Dose Instruction: inhale THE contents of 1 capsule in THE HANDIHALER once daily Rx Instructions: inhale THE contents of 1 capsule in THE HANDIHALER once daily amlodipine 10 mg tablet 10 mg PO DAILY Qty: 90 1RF Rx Instructions: take 1 tablet by mouth once daily prednisone 10 mg tablet 10 mg PO BEDTIME Qty: 90 3RF oxycodone-acetaminophen [Percocet] 10-325 mg tablet See Rx Instructions PO .COMPLEX PRN (Reason: pain) Qty: 180 0RF Rx Instructions: take 2 tablets by mouth every 4 hours if needed for pain. diazepam 2 mg tablet 4 mg PO BEDTIME PRN (Reason: sleep) Qty: 60 0RF epinephrine [EpiPen 2-Nura] 0.3 mg/0.3 mL auto-injector 0.3 mg IM SEE INSTRUCTIONS Qty: 2 5RF spironolactone 25 mg tablet 25 mg PO BID dapagliflozin propanediol [Farxiga] 10 mg PO DAILY ferrous gluconate 324 mg (37.5 mg iron) tablet 324 mg PO DAILY Qty: 90 3RF Mounjaro 7.5 mg/0.5 mL pen injector 7.5 mg SUBCUT QWEEK Qty: 2 1RF furosemide 40 mg tablet See Rx Instructions .ROUTE .COMPLEX PRN (Reason: Swelling) Rx Instructions: 1-2 tabs as needed for swelling ipratropium-albuterol 0.5 mg-3 mg(2.5 mg base)/3 mL Solution For Nebulization 3 ml INH RTQ6HR PRN (Reason: Shortness Of Breath) Qty: 120 2RF levofloxacin 750 mg tablet 750 mg PO DAILY Qty: 4 0RF nicotine [Nicoderm CQ] 14 mg/24 hr patch 24 hour 1 patch transdermal DAILY Qty: 14 2RF Dupixent Pen 300 mg/2 mL pen injector 300 mg SUBCUT Q2W Qty: 4 12RF Rx Instructions: 600 mg once then 300 mg every 2 weeks Referrals: Ricardo Victoria MD [Primary Care Provider] - Stand Alone Forms: Patient Portal/API/Survey
--- NOTE | 2025-01-24 12:06 | ED.NECK ---
HPI - Neck Pain/Injury <Tika Ojeda PA-C - Last Filed: 01/24/25 14:57> General Chief Complaint: Neck Pain/Injury Stated Complaint: Nausea, leg cramps ,neck pain x 2 weeks Time Seen by Provider: 01/24/25 11:43 Mode of arrival: Ambulatory Limitations: no limitations History of Present Illness HPI Narrative: Mr. George is a very pleasant 54-year-old gentleman with a past medical history of chronic pain, T2 DM on Mounjaro, anemia, hypertension, depression who presents to the emergency department for nausea, leg cramps, neck pain x2 weeks. Patient is concerned that his symptoms are related to opioid withdrawal as he was previously on fentanyl patch for 17 years but about 2.5 weeks ago his PCP discontinued his fentanyl patches and switched him to Suboxone in addition he has oxycodone every 4 hours. Patient also uses medications such as Flexeril, Valium. Patient presents to the ED as these symptoms have been extremely debilitating for the last 2 weeks and are preventing him from sleeping. He is less concerned about the neck pain and more concerned about the constant nausea and the lower leg cramps. Symptoms started about 3 days after his medication change. No chest pain, shortness of breath, fevers, chills, cough, flu-like symptoms. Related Data Home Medications Medication Instructions Recorded Confirmed dapagliflozin propanediol [Farxiga] 10 mg PO DAILY 10/07/23 12/29/24 spironolactone 25 mg tablet 25 mg PO BID 12/28/23 12/29/24 furosemide 40 mg tablet See Rx Instructions .Route 06/10/24 12/29/24 .COMPLEX PRN Swelling Previous Rx's Medication Instructions Recorded epinephrine 0.3 mg/0.3 mL 0.3 mg (0.3 mL) IM SEE 07/17/19 injection, auto-injector (EpiPen INSTRUCTIONS #2 ea 2-Nura) ferrous gluconate 324 mg (37.5 mg 324 mg PO DAILY #90 tabs 11/23/23 iron) tablet losartan 100 mg tablet 100 mg PO DAILY #90 tabs 02/11/24 ipratropium 0.5 mg-albuterol 3 mg 3 ml INH [id number] PRN Shortness Of 06/12/24 (2.5 mg base)/3 mL nebulization Breath #120 doses soln levofloxacin 750 mg tablet 750 mg PO DAILY #4 tabs 06/12/24 nicotine 14 mg/24 hr daily 1 patch transdermal DAILY #14 ea 06/12/24 transdermal patch (Nicoderm CQ) dupilumab 300 mg/2 mL subcutaneous 300 mg (2 mL) SUBCUT Q2W #4 mL 08/18/24 pen injector (Dupixent) metformin 500 mg tablet See Rx Instructions .Route 09/25/24 .COMPLEX #360 tabs escitalopram oxalate 20 mg tablet 20 mg PO DAILY #90 tabs 10/09/24 glimepiride 4 mg tablet 8 mg (2 x 4 mg) PO BID #120 tabs 10/25/24 finasteride 5 mg tablet 5 mg PO DAILY #90 tabs 10/30/24 gabapentin 600 mg tablet 1,200 mg (2 x 600 mg) PO BID #240 11/06/24 tabs cyclobenzaprine 10 mg tablet 10 mg PO TID #180 tabs 11/07/24 mometasone-formoterol HFA 200 See Rx Instructions .Route 11/14/24 mcg-5 mcg/actuation aerosol .COMPLEX #13 grams inhaler (Dulera) beclomethasone dipropionate 80 See Rx Instructions .Route 11/22/24 mcg/actuation HFA breath activated .COMPLEX #10.6 grams aerosol (Qvar RediHaler) varenicline tartrate 0.5 mg (11)-1 See Rx Instructions PO PER PKG DIR 12/04/24 mg (42) tablets in a dose pack #53 ea varenicline tartrate 1 mg tablet 1 mg PO BID #56 tabs 12/04/24 albuterol sulfate 90 mcg/actuation See Rx Instructions .Route 12/06/24 aerosol inhaler .COMPLEX #8.5 grams tirzepatide 7.5 mg/0.5 mL 7.5 mg (0.5 mL) SUBCUT QWEEK #2 mL 12/29/24 subcutaneous pen injector (Mounjaro) buprenorphine 2 mg-naloxone 0.5 mg See Rx Instructions buccal 01/04/25 sublingual film (Suboxone) .COMPLEX #30 ea amlodipine 10 mg tablet 10 mg PO DAILY #90 tabs 01/11/25 tiotropium bromide 18 mcg capsule See Rx Instructions .Route 01/11/25 with inhalation device (Spiriva .COMPLEX #30 caps with HandiHaler) oxycodone-acetaminophen 10 mg-325 See Rx Instructions PO .COMPLEX 01/19/25 mg tablet (Percocet) PRN pain #180 tabs prednisone 10 mg tablet 10 mg PO BEDTIME #90 tabs 01/19/25 diazepam 2 mg tablet 4 mg (2 x 2 mg) PO BEDTIME PRN 01/23/25 sleep #60 tabs lidocaine 5 % topical patch 1 patch topical DAILY #30 ea 01/24/25 (Lidoderm) ondansetron 4 mg disintegrating 4 mg PO Q8H PRN nausea and 01/24/25 tablet vomiting #14 tabs Allergies Allergy/AdvReac Type Severity Reaction Status Date / Time cephalexin [CEPHALEXIN] Allergy Mild FACIAL Verified 12/29/24 10:05 SWELLING terbinafine [TERBINAFINE] Allergy Unknown Unknown Verified 12/29/24 10:05 nut - unspecified Allergy Anaphylaxis Verified 12/29/24 10:05 benralizumab [From Fasenra] AdvReac Severe SOB Verified 12/29/24 10:05 Cephalosporins AdvReac Intermediate Vomiting Verified 12/29/24 10:05 [CEPHALOSPORINS] Penicillins [PENICILLINS] AdvReac Intermediate Vomiting Verified 12/29/24 10:05 Beta-Blockers AdvReac Mild ASTHMA Verified 12/29/24 10:05 (Beta-Adrenergic Bloc doxycycline [DOXYCYCLINE] AdvReac Mild HIVES Verified 12/29/24 10:05 nadolol [NADOLOL] AdvReac Mild AGGREVATES Verified 12/29/24 10:05 ASTHMA semaglutide [From Ozempic] AdvReac Mild CONSTIPATIO Verified 12/29/24 10:05 N Sulfa (Sulfonamide AdvReac Mild VOMITING Verified 12/29/24 10:05 Antibiotics) [SULFA (SULFONAMIDE ANTIBIOTICS)] Review of Systems <Tika Ojeda PA-C - Last Filed: 01/24/25 14:57> Review of Systems ROS Unobtainable: All systems reviewed & are unremarkable except as noted in HPI and below Patient History <Tika Ojeda PA-C - Last Filed: 01/24/25 14:57> Medical History Tobacco use disorder EMA (generalized anxiety disorder) OCD (obsessive compulsive disorder) 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 Well-developed patient, in no acute distress. HEAD: Atraumatic. Normocephalic. EYES: No scleral icterus. No injection or drainage. NECK: Trachea midline. Cervical ROM intact. CARDIOVASCULAR: Mildly increased rate and rhythm. RESPIRATORY: ?Nonlabored respirations. ?Speaking in clear, full sentences. ?Clear to auscultation. Breath sounds equal bilaterally. No wheezes, rales, or rhonchi. ? GASTROINTESTINAL: Abdomen soft, non-tender, nondistended. EXTREMITIES: Chronic bilateral varicose veins, no unilateral leg swelling or calf tenderness. NEURO: AOx3. ?Clear speech. ?Moves all 4 extremities appropriately. SKIN: No rash or erythema of visible areas Initial Vital Signs Initial Vital Signs: Vital Signs Temperature 98 F 01/24/25 10:52 Pulse Rate 101 H 01/24/25 10:52 Respiratory Rate 18 01/24/25 10:52 Blood Pressure 161/71 H 01/24/25 10:52 Pulse Oximetry 99 01/24/25 10:52 Oxygen Delivery Method Room Air 01/24/25 10:52 <Valeria Hunter DO - Last Filed: 01/26/25 10:23> Initial Vital Signs Initial Vital Signs: Vital Signs Temperature 98 F 01/24/25 10:52 Pulse Rate 101 H 01/24/25 10:52 Respiratory Rate 18 01/24/25 10:52 Blood Pressure 161/71 H 01/24/25 10:52 Pulse Oximetry 99 01/24/25 10:52 Oxygen Delivery Method Room Air 01/24/25 10:52 Course <Tika Ojeda PA-C - Last Filed: 01/24/25 14:57> Orders Ordered: Discontinued Medications Sodium Chloride (Normal Saline 0.9%) 1,000 mls @ 1,000 mls/hr IV BOLUS ONE Stop: 01/24/25 13:57 Last Infusion: 01/24/25 14:36 Dose: Infused Documented By: Admin: 01/24/25 13:34 Dose: 1,000 mls/hr Documented By: SHIRA Lidocaine (Lidocaine 5% Patch) 1 each TOP NOW ONE Stop: 01/24/25 12:07 Last Admin: 01/24/25 12:28 Dose: 1 each Documented By: MADELIN Ondansetron HCl (Ondansetron 4 Mg/2 Ml Inj) 4 mg IV NOW ONE Stop: 01/24/25 12:07 Last Admin: 01/24/25 12:27 Dose: 4 mg Documented By: MADELIN Vital Signs Vital signs: Vital Signs - 8 hr 01/24/25 10:52 01/24/25 14:55 Temperature 98 F Pulse Rate 101 H 80 Respiratory Rate 18 20 Blood Pressure 161/71 H 115/62 Pulse Oximetry 99 97 Oxygen Delivery Method Room Air <Valeria Hunter DO - Last Filed: 01/26/25 10:23> Orders Ordered: Discontinued Medications Sodium Chloride (Normal Saline 0.9%) 1,000 mls @ 1,000 mls/hr IV BOLUS ONE Stop: 01/24/25 13:57 Last Infusion: 01/24/25 14:36 Dose: Infused Documented By: Admin: 01/24/25 13:34 Dose: 1,000 mls/hr Documented By: SHIRA Lidocaine (Lidocaine 5% Patch) 1 each TOP NOW ONE Stop: 01/24/25 12:07 Last Admin: 01/24/25 12:28 Dose: 1 each Documented By: MADELIN Ondansetron HCl (Ondansetron 4 Mg/2 Ml Inj) 4 mg IV NOW ONE Stop: 01/24/25 12:07 Last Admin: 01/24/25 12:27 Dose: 4 mg Documented By: MADELIN Vital Signs Vital signs: Vital Signs - 8 hr 01/24/25 10:52 01/24/25 14:55 Temperature 98 F Pulse Rate 101 H 80 Respiratory Rate 18 20 Blood Pressure 161/71 H 115/62 Pulse Oximetry 99 97 Oxygen Delivery Method Room Air MDM - Neck Pain/Injury <Tika Ojeda PA-C - Last Filed: 01/24/25 14:57> Medical Records Attestation: I reviewed the patient's medical records. Lab Data 01/24/25 12:20 01/24/25 12:20 Labs: Lab Results 01/24/25 Range/Units 12:20 WBC 10.6 (4.5-11.0) X10^3/uL RBC 4.62 (4.5-5.9) X10^6/uL Hgb 11.5 L (13.5-17.5) g/dL Hct 35.3 L (41-53) % MCV 76.5 L (80-100) fL MCH 24.9 L (26-34) PG MCHC 32.6 (30-36) % RDW 18.1 H (11.6-14.8) % Plt Count 257 (150-400) X10^3/uL Neut % (Auto) 86.9 H (50-75) % Lymph % (Auto) 7.4 L (25-40) % [place] % (Auto) 4.8 (3-14) % Eos % (Auto) 0.4 L (2-4) % Baso % (Auto) 0.5 (0-2) % Neut # (Auto) 9200 H (6067-4155) /uL Lymph # (Auto) 800 L (5946-3343) /uL [place] # (Auto) 500 (0-900) /uL Eos # (Auto) 0 (0-450) /uL Baso # (Auto) 100 (0-100) /uL Sodium 131 L (137-145) mmol/L Potassium 5.2 H (3.4-5.1) mmol/L Chloride 97 L (98-107) mmol/L Carbon Dioxide 24 (22-32) mmol/L BUN 29 H (9-20) mg/dL Creatinine 0.92 (0.66-1.25) mg/dL Estimated GFR > 60 (>60) mL/min BUN/Creatinine Ratio 31.5 H (6-22) Glucose 230 H (70-99) mg/dL Calcium 9.3 (8.4-10.2) mg/dL Magnesium 1.8 (1.6-2.3) mg/dL Total Bilirubin 0.3 (0.2-1.3) mg/dL AST 23 (17-59) IU/L ALT 29 (<50) IU/L Alkaline Phosphatase 114 (38-126) U/L Total Protein 7.6 (6.3-8.2) g/dL Albumin 4.5 (3.5-5.0) g/dL Globulin 3.1 (1.7-4.1) g/dL Albumin/Globulin Ratio 1.5 (1.0-2.8) Lipase 37 (23-300) U/L [facility] Narrative Medical decision making narrative: 54-year-old gentleman with a past medical history of chronic pain, T2 DM on Mounjaro, anemia, hypertension, depression who presents to the emergency department for nausea, leg cramps, neck pain x2 weeks. Differential diagnosis includes but is not limited to medication side effect, medication withdrawal, electrolyte abnormality, [place], dehydration, etc. On exam patient is in no acute distress, nontoxic appearing, vital signs appropriate except for mildly elevated blood pressure and heart rate. Patient's abdomen is soft and nontender. His lower extremities so no signs of DVT or cellulitis. Concerned for possible withdrawal versus side effect versus electrolyte abnormality, we will check CBC, CMP, lipase, treat with IV Zofran, he is tolerating oral fluids. Labs reveal normal WBC count of 10.6, slightly low hemoglobin 11.5, decreased MCV 76.5, RDW elevated 18.1, consistent with microcytic anemia. Sodium is decreased at 131, potassium slightly increased at 5.2, chloride slightly decreased at 97, BUN elevated at 29, creatinine baseline is 0.92. Glucose elevated to 30. Normal calcium and magnesium. We will treat electrolyte abnormalities an elevated BUN creatinine ratio with 1 L IV fluids. Patient feeling extremely improved after ED treatment of 1 L IV fluids and Zofran & lidoderm. Prescribe him Zofran to use as needed, encouraged hydration and follow up with PCP for repeat labs and for further discussion of medication management. Patient is tolerating p.o. All VS WNL. Discussed strict ED return precautions. Patient verbalized understanding of all information and is agreeable with the plan, he is stable for discharge home. <Valeria Hunter, - Last Filed: 01/26/25 10:23> Lab Data Labs: Lab Results 01/24/25 Range/Units 12:20 WBC 10.6 (4.5-11.0) X10^3/uL RBC 4.62 (4.5-5.9) X10^6/uL Hgb 11.5 L (13.5-17.5) g/dL Hct 35.3 L (41-53) % MCV 76.5 L (80-100) fL MCH 24.9 L (26-34) PG MCHC 32.6 (30-36) % RDW 18.1 H (11.6-14.8) % Plt Count 257 (150-400) X10^3/uL Neut % (Auto) 86.9 H (50-75) % Lymph % (Auto) 7.4 L (25-40) % [place] % (Auto) 4.8 (3-14) % Eos % (Auto) 0.4 L (2-4) % Baso % (Auto) 0.5 (0-2) % Neut # (Auto) 9200 H (1808-2290) /uL Lymph # (Auto) 800 L (5601-6182) /uL [place] # (Auto) 500 (0-900) /uL Eos # (Auto) 0 (0-450) /uL Baso # (Auto) 100 (0-100) /uL Sodium 131 L (137-145) mmol/L Potassium 5.2 H (3.4-5.1) mmol/L Chloride 97 L (98-107) mmol/L Carbon Dioxide 24 (22-32) mmol/L BUN 29 H (9-20) mg/dL Creatinine 0.92 (0.66-1.25) mg/dL Estimated GFR > 60 (>60) mL/min BUN/Creatinine Ratio 31.5 H (6-22) Glucose 230 H (70-99) mg/dL Calcium 9.3 (8.4-10.2) mg/dL Magnesium 1.8 (1.6-2.3) mg/dL Total Bilirubin 0.3 (0.2-1.3) mg/dL AST 23 (17-59) IU/L ALT 29 (<50) IU/L Alkaline Phosphatase 114 (38-126) U/L Total Protein 7.6 (6.3-8.2) g/dL Albumin 4.5 (3.5-5.0) g/dL Globulin 3.1 (1.7-4.1) g/dL Albumin/Globulin Ratio 1.5 (1.0-2.8) Lipase 37 (23-300) U/L Discharge Plan Departure Patient Disposition: Home Clinical Impression: Nausea, Bilateral leg cramps, Hyponatremia, Hyperkalemia Instructions: DI for Nausea -- Adult, DI for Nocturnal Leg Cramps Activity Restrictions/Additional Instructions: Dear Mr. George, Thank you for coming to the emergency department. Today you were evaluated for neck pain, nausea, leg cramping. Your lab work did reveal that your sodium was low and your potassium was slightly elevated. You received IV fluids, IV nausea medication. I would like you to use the prescribed nausea medication if needed for breakthrough nausea, and also make sure to hydrate frequently. I do recommend that you have repeat labs with your primary care doctor to recheck your electrolyte abnormalities. Please return to the ER if you develop any new or worsening symptoms, continue your home pain management regimen, use the nausea medication as needed you may also use topical lidocaine patches as well. Please follow up with your primary care doctor within the next 2-3 days for ER follow-up. (If you do not have a PCP you can call [phone]. ?to schedule an appointment with an [facility] Primary Care Provider) IF YOU DEVELOP ANY NEW OR WORSENING SYMPTOMS, RETURN TO THE ER! Please read the attached instructions, they highlight more specific treatments and interventions for you at home. Thank you for letting me participate in your care, Tika Ojeda PA-C Prescriptions: New ondansetron 4 mg tablet,disintegrating 4 mg PO Q8H PRN (Reason: nausea and vomiting) Qty: 14 0RF lidocaine [Lidoderm] 5 % adhesive patch,medicated 1 patch topical DAILY Qty: 30 0RF Rx Instructions: leave on most painful area for up to 12 hrs No Action escitalopram oxalate 20 mg tablet 20 mg PO DAILY Qty: 90 1RF varenicline tartrate 0.5 mg (11)- 1 mg (42) tablets,dose pack See Rx Instructions PO PER PKG DIR Qty: 53 0RF Rx Instructions: PO PER PKG DIR varenicline tartrate 1 mg tablet 1 mg PO BID Qty: 56 2RF Rx Instructions: start after completing initial titration starter pack losartan 100 mg tablet 100 mg PO DAILY Qty: 90 3RF metformin 500 mg tablet See Rx Instructions .ROUTE .COMPLEX Qty: 360 1RF Rx Instructions: take 2 tablets by mouth twice a day with meals glimepiride 4 mg tablet 8 mg PO BID Qty: 120 0RF finasteride 5 mg tablet 5 mg PO DAILY Qty: 90 1RF Rx Instructions: take 1 tablet by mouth once daily gabapentin 600 mg tablet 1,200 mg PO BID Qty: 240 0RF cyclobenzaprine 10 mg tablet 10 mg PO TID Qty: 180 0RF Rx Instructions: take 1 tablet by mouth three times a day if needed for SPASM(S) Dulera 200-5 mcg/actuation HFA aerosol inhaler See Rx Instructions .ROUTE .COMPLEX Qty: 13 6RF Dose Instruction: inhale 2 puffs by mouth and INTO THE LUNGS twice a day Rx Instructions: inhale 2 puffs by mouth and INTO THE LUNGS twice a day Qvar RediHaler 80 mcg/actuation HFA aerosol breath activated See Rx Instructions .ROUTE .COMPLEX Qty: 10.6 3RF Dose Instruction: inhale 1 puff by mouth every 12 hours Rx Instructions: inhale 1 puff by mouth every 12 hours albuterol sulfate 90 mcg/actuation HFA aerosol inhaler See Rx Instructions .ROUTE .COMPLEX Qty: 8.5 5RF Dose Instruction: inhale 2 puffs by mouth every 6 hours if needed for shortness of breath or wheezing Rx Instructions: inhale 2 puffs by mouth every 6 hours if needed for shortness of breath or wheezing buprenorphine-naloxone [Suboxone] 2-0.5 mg film See Rx Instructions buccal .COMPLEX Qty: 30 0RF Rx Instructions: place 1/4 strip/tab under side of tongue twice daily for 1 week, then place 1/4 strip/tab under side of tongue three times daily for 1 week thereafter. Stop fentanyl. Patient under close supervision of PCP, specialist, and case advocate tiotropium bromide [Spiriva with HandiHaler] 18 mcg capsule, w/inhalation device See Rx Instructions .ROUTE .COMPLEX Qty: 30 3RF Dose Instruction: inhale THE contents of 1 capsule in THE HANDIHALER once daily Rx Instructions: inhale THE contents of 1 capsule in THE HANDIHALER once daily amlodipine 10 mg tablet 10 mg PO DAILY Qty: 90 1RF Rx Instructions: take 1 tablet by mouth once daily prednisone 10 mg tablet 10 mg PO BEDTIME Qty: 90 3RF oxycodone-acetaminophen [Percocet] 10-325 mg tablet See Rx Instructions PO .COMPLEX PRN (Reason: pain) Qty: 180 0RF Rx Instructions: take 2 tablets by mouth every 4 hours if needed for pain. diazepam 2 mg tablet 4 mg PO BEDTIME PRN (Reason: sleep) Qty: 60 0RF epinephrine [EpiPen 2-Nura] 0.3 mg/0.3 mL auto-injector 0.3 mg IM SEE INSTRUCTIONS Qty: 2 5RF spironolactone 25 mg tablet 25 mg PO BID dapagliflozin propanediol [Farxiga] 10 mg PO DAILY ferrous gluconate 324 mg (37.5 mg iron) tablet 324 mg PO DAILY Qty: 90 3RF Mounjaro 7.5 mg/0.5 mL pen injector 7.5 mg SUBCUT QWEEK Qty: 2 1RF furosemide 40 mg tablet See Rx Instructions .ROUTE .COMPLEX PRN (Reason: Swelling) Rx Instructions: 1-2 tabs as needed for swelling ipratropium-albuterol 0.5 mg-3 mg(2.5 mg base)/3 mL Solution For Nebulization 3 ml INH [id number] PRN (Reason: Shortness Of Breath) Qty: 120 2RF levofloxacin 750 mg tablet 750 mg PO DAILY Qty: 4 0RF nicotine [Nicoderm CQ] 14 mg/24 hr patch 24 hour 1 patch transdermal DAILY Qty: 14 2RF Dupixent Pen 300 mg/2 mL pen injector 300 mg SUBCUT Q2W Qty: 4 12RF Rx Instructions: 600 mg once then 300 mg every 2 weeks Referrals: Ricardo Victoria MD [Primary Care Provider] - Stand Alone Forms: Patient Portal/API/Survey ED Sign-out <Valeria Hunter DO - Last Filed: 01/26/25 10:23> Cosign ED Attending Cosignature Attestation: I was immediately available in the department for consultation.
[2025-01-24 12:27] LABS: Add Manual Diff / Slide Review NO; Basophils Absolute Auto 100 /uL (0-100); Basophils Percent Auto 0.5 % (0-2); Eosinophils Absolute Auto 0 /uL (0-450); Eosinophils Percent Auto 0.4 % (2-4); Hematocrit 35.3 % (41-53); Hemoglobin 11.5 g/dL (13.5-17.5); Lymphocytes Absolute Auto 800 /uL (1100-4500); Lymphocytes Percent Auto 7.4 % (25-40); Mean Corpuscular HGB Conc 32.6 % (30-36); Mean Corpuscular Hemoglobin 24.9 PG (26-34); Mean Corpuscular Volume 76.5 fL (80-100); Monocytes Absolute Auto 500 /uL (0-900); Monocytes Percent Auto 4.8 % (3-14); Neutrophils Absolute Auto 9200 /uL (1500-7000); Neutrophils Percent Auto 86.9 % (50-75); Platelet Count 257 X10^3/uL (150-400); Red Blood Cell Count 4.62 X10^6/uL (4.5-5.9); Red Cell Distribution Width 18.1 % (11.6-14.8); White Blood Cell Count 10.6 X10^3/uL (4.5-11.0)
[2025-01-24] MEDS: ONDANSETRON 4 MG/2 ML INJ IV (12:27)
[2025-01-24] MEDS: LIDOCAINE 5% PATCH 1 EACH TOP (12:28)
--- NOTE | 2025-01-24 12:29 | PC.NURSE ---
was present with student nurse during all treatments and reviewed all patient charting and agree with assessment.
[2025-01-24 12:49] LABS: Alanine Aminotransferase 29 IU/L (<50); Albumin 4.5 g/dL (3.5-5.0); Albumin Globulin Ratio 1.5 (1.0-2.8); Alkaline Phosphatase 114 U/L (38-126); Aspartate Aminotransferase 23 IU/L (17-59); BUN Creatinine Ratio 31.5 (6-22); Bilirubin Total 0.3 mg/dL (0.2-1.3); Blood Urea Nitrogen 29 mg/dL (9-20); Calcium 9.3 mg/dL (8.4-10.2); Carbon Dioxide 24 mmol/L (22-32); Chloride 97 mmol/L (98-107); Estimated Glomerular Filt Rate > 60 mL/min (>60); Globulin 3.1 g/dL (1.7-4.1); Glucose 230 mg/dL (70-99); HEMOLYSIS < 15 (0-50); Lipase 37 U/L (23-300); Potassium 5.2 mmol/L (3.4-5.1); Sodium 131 mmol/L (137-145); Total Protein 7.6 g/dL (6.3-8.2)
[2025-01-24 13:29] LABS: Magnesium 1.8 mg/dL (1.6-2.3)
[2025-01-24] MEDS: SODIUM CHLORIDE 0.9% 1,000 ML 1000 ML IV (13:34)
[2025-01-24 14:55] VITALS: BP 115/62; PULSE 80; RESP 20; O2SAT 97
== END 2025-01-24 15:16 | disposition home or self-care (01) ==
PROVIDERS: Emergency Provider Physician Assistant; Family Provider Family Medicine; PCP Family Medicine
DX: R25.2 Cramp and spasm (principal); R11.0 Nausea; E87.1 Hypo-osmolality and hyponatremia; E87.5 Hyperkalemia
CPT/HCPCS: 80053; 83690; 83735; 85025; 96361; 96374; 99283; 99284; J2405

== ENCOUNTER 2025-02-19 11:12 | Emergency (ER) | payer OTHER, SELFPAY ==
[2024-06-10 22:35] VITALS: BMI 43.0
[2025-02-19 11:16] VITALS: BP 145/93; PULSE 109; RESP 18; TEMP 37.1; O2SAT 99; BMI 38.7
[2025-02-19] MEDS: OXYCODONE/ACETAMINOPHEN 5/325 TABLET 4 TAB PO (12:06)
--- NOTE | 2025-02-19 12:13 | ED_ITS ---
HPI - Neck Pain/Injury <Thomas Bowling PA-C - Last Filed: 02/19/25 12:17> General Chief Complaint: Neck Pain/Injury Stated Complaint: Neck pain 3 Days Time Seen by Provider: 02/19/25 11:27 Mode of arrival: Ambulatory History of Present Illness HPI Narrative: 54-year-old male with chronic neck pain due to spinal stenosis presents to the ED with breakthrough neck pain for the last 3 days. Patient sees his PCP Dr. Victoria who is working with the patient to transition him off of fentanyl to Suboxone and Percocet. Patient has been following the titration plan that Dr. Victoria as outlined. However, patient noted that he started experiencing severe breakthrough pain over the last 3 days. No new injuries or trauma. No numbness, tingling, weakness. No other symptoms reported. Related Data Home Medications ?Medication ?Instructions ?Recorded ?Confirmed dapagliflozin propanediol [Farxiga] 10 mg PO DAILY 02/01/25 spironolactone 25 mg tablet 25 mg PO BID 12/28/2301/12 furosemide 40 mg tablet See Rx Instructions .Route 0 06/10/24 02/01/25 .COMPLEX PRN Swelling Previous Rx's ?Medication ?Instructions ?Recorded epinephrine 0.3 mg/0.3 mL 0.3 mg (0.3 mL) IM SEE 07/17 injection, auto-injector (EpiPen INSTRUCTIONS #2 ea 2-Nura) ipratropium 0.5 mg-albuterol 3 mg 3 ml INH RTQ6HR PRN Shortness Of 06/12/24 (2.5 mg base)/3 mL nebulization Breath #120 doses soln levofloxacin 750 mg tablet 750 mg PO DAILY #4 tabs nicotine 14 mg/24 hr daily 1 patch transdermal DAILY # 14 ea 06/12/24 transdermal patch (Nicoderm CQ) dupilumab 300 mg/2 mL subcutaneous 300 mg (2 mL) SUBCU T Q2W #4 mL 08/18/24 pen injector (Dupixent) escitalopram oxalate 20 mg tablet 20 mg PO DAILY #90 t abs 10/09/24 mometasone-formoterol HFA 200 See Rx Instructions .Rou te 11/14/24 mcg-5 mcg/actuation aerosol .COMPLEX #13 grams inhaler (Dulera) varenicline tartrate 0.5 mg (11)-1 See Rx Instructions PO PER PKG DIR 12/04/24 mg (42) tablets in a dose pack #53 ea varenicline tartrate 1 mg tablet 1 mg PO BID #56 tabs 12/04/24 tirzepatide 7.5 mg/0.5 mL 7.5 mg (0.5 mL) SUBCUT QWEEK #2 mL 12/29/24 subcutaneous pen injector (Maheshunjohnie) diazepam 2 mg tablet 4 mg (2 x 2 mg) PO BEDTIME P RN 01/23/25 sleep #60 tabs lidocaine 5 % topical patch 1 patch topical DAILY #30 ea 01/24/25 (Lidoderm) ondansetron 4 mg disintegrating 4 mg PO Q8H PRN nausea and 01/24/25 tablet vomiting #14 tabs albuterol sulfate 90 mcg/actuation See Rx Instructions .Route 01/31/25 aerosol inhaler .COMPLEX #8.5 grams amlodipine 10 mg tablet 10 mg PO DAILY #90 tabs 01/12 10/07 beclomethasone dipropionate 80 See Rx Instructions .Ro radha 01/31/25 mcg/actuation HFA breath activated .COMPLEX #10.6 gram s aerosol (Qvar RediHaler) ferrous gluconate 324 mg (37.5 mg 324 mg PO DAILY #90 tabs 01/31/25 iron) tablet finasteride 5 mg tablet 5 mg PO DAILY #90 tabs 01/31 gabapentin 600 mg tablet 1,200 mg (2 x 600 mg) PO BID #240 01/31/25 tabs glimepiride 4 mg tablet 8 mg (2 x 4 mg) PO BID #120 tabs 01/31/25 losartan 100 mg tablet 100 mg PO DAILY #90 tabs metformin 500 mg tablet See Rx Instructions .Route 0 01/31/25 .COMPLEX #360 tabs prednisone 10 mg tablet 10 mg PO BEDTIME #90 tabs tiotropium bromide 18 mcg capsule See Rx Instructions .Route 01/31/25 with inhalation device (Spiriva .COMPLEX #30 caps with HandiHaler) buprenorphine 2 mg-naloxone 0.5 mg See Rx Instructions buccal 02/01/25 sublingual film (Suboxone) .COMPLEX #30 ea cyclobenzaprine 10 mg tablet 10 mg PO TID PRN muscle s pasm #180 02/01/25 tabs oxycodone-acetaminophen 10 mg-325 See Rx Instructions PO .COMPLEX 02/06/25 mg tablet (Percocet) PRN pain #180 tabs Allergies Allergy/AdvReac Type Severity Reaction Status Date / Time cephalexin (CEPHALEXIN) Allergy Mild FACIAL Verified 02/01/25 13:56 SWELLING terbinafine (TERBINAFINE) Allergy Unknown Unknown Verified 02/01/25 13:56 nut - unspecified Allergy Anaphylaxis Verified 02/01/25 13:56 benralizumab (From Fasenra) AdvReac Severe SOB Verified 02/01/25 13:56 Cephalosporins AdvReac Intermediate Vomiting Verified 02/01/25 13:56 (CEPHALOSPORINS) Penicillins (PENICILLINS) AdvReac Intermediate Vomiting Verified 02/01/25 13:56 Beta-Blockers AdvReac Mild ASTHMA Verified 02/01/25 13:56 (Beta-Adrenergic Bloc doxycycline (DOXYCYCLINE) AdvReac Mild HIVES Verified 02/01/25 13:56 nadolol (NADOLOL) AdvReac Mild AGGREVATES Verified 02/01/25 13:56 ASTHMA semaglutide (From Ozempic) AdvReac Mild CONSTIPATIO Verified 02/01/25 13:56 N Sulfa (Sulfonamide AdvReac Mild VOMITING Verified 02/01/25 13:56 Antibiotics) (SULFA (SULFONAMIDE ANTIBIOTICS)) Review of Systems <Thomas Bowling PA-C - Last Filed: 02/19/25 12:17> Constitutional Constitutional: Denies chills, Denies fatigue, Denies fever(s), Denies frequent falls, Denies lethargy and Denies weakness Eyes Eyes: Denies change in vision, Denies eye discharge, Denies irritation and Denies loss of vision ENT Ears, Nose, Mouth, and Throat: Denies change in voice, Denies dizziness, Reports neck pain, Denies sore throat and Denies throat swelling Cardiovascular Cardiovascular: Denies chest pain, Denies irregular heart rhythm, Denies lightheadedness, Denies palpitations, Denies dyspnea, Denies dyspnea on exertion and Denies orthopnea Respiratory Respiratory: Denies cough, Denies dyspnea, Denies dyspnea on exertion and Denies wheezing Gastrointestinal Gastrointestinal: Denies abdominal pain, Denies change in bowel habits, Denies diarrhea, Denies nausea and Denies vomiting Musculoskeletal Musculoskeletal: Reports neck pain and Denies numbness Integumentary/Breasts Skin/Breast: Denies pruritus, Denies erythema, Denies rash and Denies wounds Neurologic Neurologic: Denies behavioral changes, Denies confusion, Denies dizziness, Denies frequent falls, Denies loss of vision, Denies numbness and Denies weakness Psychiatric Psychiatric: Denies anxiety, Denies behavioral changes, Denies confusion, Denies depression, Denies homicidal ideation and Denies suicidal ideation Endocrine Endocrine: Denies fatigue, Denies flushing and Denies palpitations Hematologic/Lymphatic Hematologic/Lymphatic: Denies easy bruising Allergic/Immunologic Allergic/Immunologic: Denies urticaria, Denies throat swelling and Denies wheezing Patient History <Thomas Bowling PA-C - Last Filed: 02/19/25 12:17> Medical History Tobacco use disorder EMA (generalized anxiety disorder) OCD (obsessive compulsive disorder) 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 Iron deficiency anemia Chronic pain syndrome Cervical stenosis of spinal canal Hypertension Hyperlipidemia Varicose vein of leg Myocarditis Surgical History No pertinent past surgical history Social History marital status: unmarried,single household members: significant other lives independently: Yes occupational status: disabled Smoking Status: Current every day smoker alcohol intake: never substance use type: does not use Smoking Status: Current every day smoker tobacco type: cigarettes alcohol intake frequency: other Exam <Thomas Bowling PA-C - Last Filed: 02/19/25 12:17> Narrative Exam Narrative: Const General:?cooperative, healthy appearing and comfortable [facility] Head:?normal to inspection Ears:?hearing grossly normal bilaterally Nose:?external nose normal Face and sinus:?normal facial exam and sinuses nontender Mouth:?oral mucosae normal Throat:?posterior oropharynx normal Eyes General:?appearance normal, both eyes and all related structures Neck Neck:?normal visual inspection and no lymphadenopathy noted; no midline tenderness to palpation; neurovascularly intact Resp Effort & Inspection:?normal respiratory effort Auscultation:?clear to auscultation bilaterally Cardio Rate:?regular rate Rhythm:?regular rhythm Neuro General:?patient alert, patient awake and patient oriented x3 Initial Vital Signs Initial Vital Signs: Vital Signs Temperature 98.8 F 02/19/25 11:16 Pulse Rate 109 H 02/19/25 11:16 Respiratory Rate 18 02/19/25 11:16 Blood Pressure 145/93 H 02/19/25 11:16 Pulse Oximetry 99 02/19/25 11:16 Oxygen Delivery Method Room Air 02/19/25 11:16 <Aldo Lee MD - Last Filed: 02/20/25 07:48> Initial Vital Signs Initial Vital Signs: Vital Signs Temperature 98.8 F 02/19/25 11:16 Pulse Rate 109 H 02/19/25 11:16 Respiratory Rate 18 02/19/25 11:16 Blood Pressure 145/93 H 02/19/25 11:16 Pulse Oximetry 99 02/19/25 11:16 Oxygen Delivery Method Room Air 02/19/25 11:16 Course <Thomas Bowling PA-C - Last Filed: 02/19/25 12:17> Orders Ordered: Discontinued Medications Oxycodone/Acetaminophen (Oxycodone/Acetaminophen 5/325 Tablet) 4 tab PO NOW ONE Stop: 02/19/25 12:00 Last Admin: 02/19/25 12:06 Dose: 4 tab Documented By: JACKIE Vital Signs Vital signs: Vital Signs - 8 hr 02/19/25 11:16 Temperature 98.8 F Pulse Rate 109 H Respiratory Rate 18 Blood Pressure 145/93 H Pulse Oximetry 99 Oxygen Delivery Method Room Air <Aldo Lee MD - Last Filed: 02/20/25 07:48> Orders Ordered: Discontinued Medications Oxycodone/Acetaminophen (Oxycodone/Acetaminophen 5/325 Tablet) 4 tab PO NOW ONE Stop: 02/19/25 12:00 Last Admin: 02/19/25 12:06 Dose: 4 tab Documented By: JACKIE Vital Signs Vital signs: Vital Signs - 8 hr 02/19/25 11:16 Temperature 98.8 F Pulse Rate 109 H Respiratory Rate 18 Blood Pressure 145/93 H Pulse Oximetry 99 Oxygen Delivery Method Room Air MDM - Neck Pain/Injury <Thomas Bowling PA-C - Last Filed: 02/19/25 12:17> MDM Narrative Medical decision making narrative: 54-year-old male with chronic neck pain due to spinal stenosis presents to the ED with breakthrough neck pain for the last 3 days. It is reassuring to note that there is no new trauma or injuries. Pain most likely breakthrough from titrating the medications down. Patient is advised to up the Percocet back to the levels that he was taking last week prior to the reductions. Recommend follow-up with Dr. Victoria for further evaluation. ED return precautions discussed with patient. Patient verbalized understanding. Medical records reviewed: Yes Discharge Plan Departure Patient Disposition: Home Clinical Impression: Neck pain Instructions: Chronic Neck Pain Activity Restrictions/Additional Instructions: You were evaluated in the ED today for breakthrough neck pain. You were given a dose of Percocet in the ED. It is advisable for you to go back to the Percocet dose you were on prior to last week's dose reduction. Please also follow up with your PCP Dr. Victoria as soon as possible for further evaluation. Return to the ED if you have worsening symptoms, tingling, numbness, weakness. Prescriptions: No Action escitalopram oxalate 20 mg tablet 20 mg PO DAILY Qty: 90 1RF varenicline tartrate 0.5 mg (11)- 1 mg (42) tablets,dose pack See Rx Instructions PO PER PKG DIR Qty: 53 0RF Rx Instructions: PO PER PKG DIR varenicline tartrate 1 mg tablet 1 mg PO BID Qty: 56 2RF Rx Instructions: start after completing initial titration starter pack Dulera 200-5 mcg/actuation HFA aerosol inhaler See Rx Instructions .ROUTE .COMPLEX Qty: 13 6RF Dose Instruction: inhale 2 puffs by mouth and INTO THE LUNGS twice a day Rx Instructions: inhale 2 puffs by mouth and INTO THE LUNGS twice a day diazepam 2 mg tablet 4 mg PO BEDTIME PRN (Reason: sleep) Qty: 60 0RF albuterol sulfate 90 mcg/actuation HFA aerosol inhaler See Rx Instructions .ROUTE .COMPLEX Qty: 8.5 5RF Dose Instruction: inhale 2 puffs by mouth every 6 hours if needed for shortness of breath or wheezing Rx Instructions: inhale 2 puffs by mouth every 6 hours if needed for shortness of breath or wheezing Qvar RediHaler 80 mcg/actuation HFA aerosol breath activated See Rx Instructions .ROUTE .COMPLEX Qty: 10.6 3RF Dose Instruction: inhale 1 puff by mouth every 12 hours Rx Instructions: inhale 1 puff by mouth every 12 hours amlodipine 10 mg tablet 10 mg PO DAILY Qty: 90 1RF Rx Instructions: take 1 tablet by mouth once daily ferrous gluconate 324 mg (37.5 mg iron) tablet 324 mg PO DAILY Qty: 90 3RF finasteride 5 mg tablet 5 mg PO DAILY Qty: 90 1RF Rx Instructions: take 1 tablet by mouth once daily gabapentin 600 mg tablet 1,200 mg PO BID Qty: 240 0RF glimepiride 4 mg tablet 8 mg PO BID Qty: 120 0RF losartan 100 mg tablet 100 mg PO DAILY Qty: 90 3RF metformin 500 mg tablet See Rx Instructions .ROUTE .COMPLEX Qty: 360 1RF Rx Instructions: take 2 tablets by mouth twice a day with meals prednisone 10 mg tablet 10 mg PO BEDTIME Qty: 90 3RF tiotropium bromide [Spiriva with HandiHaler] 18 mcg capsule, w/inhalation device See Rx Instructions .ROUTE .COMPLEX Qty: 30 3RF Dose Instruction: inhale THE contents of 1 capsule in THE HANDIHALER once daily Rx Instructions: inhale THE contents of 1 capsule in THE HANDIHALER once daily oxycodone-acetaminophen [Percocet] 10-325 mg tablet See Rx Instructions PO .COMPLEX PRN (Reason: pain) Qty: 180 0RF Rx Instructions: take 2 tablets by mouth every 4 hours if needed for pain for 1 week, then start tapering schedule as discussed with provider epinephrine [EpiPen 2-Nura] 0.3 mg/0.3 mL auto-injector 0.3 mg IM SEE INSTRUCTIONS Qty: 2 5RF spironolactone 25 mg tablet 25 mg PO BID cyclobenzaprine 10 mg tablet 10 mg PO TID PRN (Reason: muscle spasm) Qty: 180 3RF Rx Instructions: take 1 tablet by mouth three times a day if needed for SPASM(S) buprenorphine-naloxone [Suboxone] 2-0.5 mg film See Rx Instructions buccal .COMPLEX Qty: 30 0RF Rx Instructions: then place 1/4 strip/tab under side of tongue three times daily for 2 weeks, then place 1/2 strip/tab under side of tongue three times daily for 2 weeks until you see provider. Patient under close supervision of PCP, specialist, and case monitor dapagliflozin propanediol [Farxiga] 10 mg PO DAILY Mounjaro 7.5 mg/0.5 mL pen injector 7.5 mg SUBCUT QWEEK Qty: 2 1RF furosemide 40 mg tablet See Rx Instructions .ROUTE .COMPLEX PRN (Reason: Swelling) Rx Instructions: 1-2 tabs as needed for swelling ipratropium-albuterol 0.5 mg-3 mg(2.5 mg base)/3 mL Solution For Nebulization 3 ml INH RTQ6HR PRN (Reason: Shortness Of Breath) Qty: 120 2RF levofloxacin 750 mg tablet 750 mg PO DAILY Qty: 4 0RF nicotine [Nicoderm CQ] 14 mg/24 hr patch 24 hour 1 patch transdermal DAILY Qty: 14 2RF ondansetron 4 mg tablet,disintegrating 4 mg PO Q8H PRN (Reason: nausea and vomiting) Qty: 14 0RF lidocaine [Lidoderm] 5 % adhesive patch,medicated 1 patch topical DAILY Qty: 30 0RF Rx Instructions: leave on most painful area for up to 12 hrs Dupixent Pen 300 mg/2 mL pen injector 300 mg SUBCUT Q2W Qty: 4 12RF Rx Instructions: 600 mg once then 300 mg every 2 weeks Referrals: Ricardo Victoria MD [Primary Care Provider, Family Practice] Stand Alone Forms: Patient Portal/API ED Sign-out <Aldo Lee MD - Last Filed: 02/20/25 07:48> Cosign ED Attending Cosignature Attestation: I was immediately available in the department for consultation. ?This documentation has been reviewed and I agree with assessment and plan. Supervised by Aldo Lee MD
== END 2025-02-19 12:17 | disposition home or self-care (01) ==
PROVIDERS: Emergency Provider Student in an Organized Health Care Education/Training Program; Family Provider Family Medicine; PCP Family Medicine
DX: M54.2 Cervicalgia (principal)
CPT/HCPCS: 99283

== ENCOUNTER → 2025-03-30 11:07 | Outpatient (CLI) | payer OTHER, SELFPAY ==
[2024-06-10 22:35] VITALS: BMI 43.0
--- NOTE | 2025-03-30 11:08 | DI.RAD.S_ITS ---
PROCEDURE: XR CERVICAL SPINE 4V OR 5V INDICATIONS: NECK PAIN TECHNIQUE: 6 views of the cervical spine acquired. COMPARISON: [facility], CR, SPINE CERVICAL MIN 4VW, 10/25/2014, 14:59. FINDINGS: Bones: No acute fractures or dislocations to the superior endplate of T1 level. Oblique images demonstrate no bony foraminal stenoses. Mild spondylitic changes at C4-5 and C6-7. Craniocervical junction appears intact. C1-C2 relationship is maintained. Soft tissues: No prevertebral soft tissue swelling. IMPRESSION: Cervical spine without acute fracture or traumatic malalignment. Mild multilevel cervical spondylosis not significantly changed compared to prior imaging. Dictated by: González Machuca M.D. on 03/30/2025 at 12:21 Approved by: González Machuca M.D. on 03/30/2025 at 12:23
== END ==
PROVIDERS: PCP Family Medicine; Referring Provider Physical Medicine & Rehabilitation; Visit Provider Physical Medicine & Rehabilitation
DX: M47.22 Other spondylosis with radiculopathy, cervical region (principal); M48.02 Spinal stenosis, cervical region
CPT/HCPCS: 72050

== ENCOUNTER → 2025-04-25 07:52 | Outpatient (CLI) | payer OTHER, SELFPAY ==
[2024-06-10 22:35] VITALS: BMI 43.0
[2025-04-25 09:05] LABS: Add Manual Diff / Slide Review NO; Hematocrit 36.6 % (41-53); Hemoglobin 11.9 g/dL (13.5-17.5); Lymphocytes Absolute Auto 2500 /uL (1100-4500); Mean Corpuscular HGB Conc 32.7 % (30-36); Mean Corpuscular Hemoglobin 26.1 PG (26-34); Mean Corpuscular Volume 79.9 fL (80-100); Platelet Count 258 X10^3/uL (150-400)
[2025-04-25 09:28] LABS: Cholesterol 188 mg/dL (140-199); HDL Cholesterol 57 mg/dL (40-60); HEMOLYSIS < 15 (0-50); Iron 37 ug/dL (49-181); Triglycerides 167 mg/dL (35-150)
[2025-04-25 09:39] LABS: Hemoglobin A1C% w Est Avg Glu 8.0 % (4.0-6.0)
[2025-04-25 09:40] LABS: Percent Iron Saturation 11 % (20-50); Total Iron Binding Capacity 337 ug/dL (261-462); Transferrin 285 mg/dL (206-381)
[2025-04-25 10:01] LABS: Thyroid Stimulating Hormone 0.495 uIU/mL (0.47-4.68)
[2025-04-25 10:04] LABS: Ferritin 10 ng/mL (18-464)
== END ==
PROVIDERS: PCP Family Medicine; Referring Provider Family Medicine; Visit Provider Family Medicine
DX: Z00.00 Encounter for general adult medical examination without abnormal findings (principal); D50.9 Iron deficiency anemia, unspecified; E11.9 Type 2 diabetes mellitus without complications; I10 Essential (primary) hypertension; E66.9 Obesity, unspecified; Z68.43 Body mass index [BMI] 50.0-59.9, adult; Z12.5 Encounter for screening for malignant neoplasm of prostate
CPT/HCPCS: 36415; 80061; 82728; 83036; 83540; 83550; 84443; 85025; G0103

== ENCOUNTER 2025-05-18 10:00 | Inpatient (IN) | payer MEDICAID, OTHER, SELFPAY ==
[2024-06-10 22:35] VITALS: BMI 43.0
[2025-05-18 10:24] VITALS: BP 133/66; PULSE 75; RESP 18; TEMP 38.2; O2SAT 92; BMI 37.3
--- NOTE | 2025-05-18 11:33 | ED_ITS ---
<Statement entered by Dereck Renee, DO - 05/18/25 18:45> Dr. Renee cosign statement attestation: I was available for consultation during this patient's emergency department visit. This chart is being signed by myself for administrative purposes only. I did not have direct contact with this patient during this visit. They were seen independently by the [facility] HPI - Skin/Abscess/Foreign Bdy General Chief complaint: Skin/Abscess/Foreign Body Stated complaint: Left leg red and swollen Time Seen by Provider: 05/18/25 10:06 Source: patient Mode of arrival: Family Vehicle Limitations: no limitations History of Present Illness HPI narrative: 55-year-old male, with history of diabetes and chronic pain syndrome, presents to the emergency department with complaints of left lower leg redness, warmth and swelling upon wakening. Patient denies any trauma to that leg or history of blood clots. Patient was recently seen in the walk-in clinic for suspected right hand cellulitis on May 14 and placed on clindamycin. Patient presented to the emergency department on May 15 with worsening swelling accompanied with a fever. Assessment did not reveal anything new and recommended continued use of the clindamycin. Patient has been adding Tylenol and occasional ibuprofen to treat his fever. Patient with 100.8 fever today. Related Data Home Medications ?Medication ?Instructions ?Recorded ?Confirmed dapagliflozin propanediol [Farxiga] 10 mg PO DAILY 05/14/25 spironolactone 25 mg tablet 25 mg PO BID 12/28/2310/07 furosemide 40 mg tablet See Rx Instructions .Route 0 06/10/24 05/14/25 .COMPLEX PRN Swelling Previous Rx's ?Medication ?Instructions ?Recorded epinephrine 0.3 mg/0.3 mL 0.3 mg (0.3 mL) IM SEE 07/17 injection, auto-injector (EpiPen INSTRUCTIONS #2 ea 2-Nura) ipratropium 0.5 mg-albuterol 3 mg 3 ml INH RTQ6HR PRN Shortness Of 06/12/24 (2.5 mg base)/3 mL nebulization Breath #120 doses soln levofloxacin 750 mg tablet 750 mg PO DAILY #4 tabs nicotine 14 mg/24 hr daily 1 patch transdermal DAILY # 14 ea 06/12/24 transdermal patch (Nicoderm CQ) dupilumab 300 mg/2 mL subcutaneous 300 mg (2 mL) SUBCU T Q2W #4 mL 08/18/24 pen injector (Dupixent) ondansetron 4 mg disintegrating 4 mg PO Q8H PRN nausea and 01/24/25 tablet vomiting #14 tabs albuterol sulfate 90 mcg/actuation See Rx Instructions .Route 01/31/25 aerosol inhaler .COMPLEX #8.5 grams beclomethasone dipropionate 80 See Rx Instructions .Ro radha 01/31/25 mcg/actuation HFA breath activated .COMPLEX #10.6 gram s aerosol (Qvar RediHaler) ferrous gluconate 324 mg (37.5 mg 324 mg PO DAILY #90 tabs 01/31/25 iron) tablet finasteride 5 mg tablet 5 mg PO DAILY #90 tabs 01/31 glimepiride 4 mg tablet 8 mg (2 x 4 mg) PO BID #120 tabs 01/31/25 losartan 100 mg tablet 100 mg PO DAILY #90 tabs prednisone 10 mg tablet 10 mg PO BEDTIME #90 tabs cyclobenzaprine 10 mg tablet 10 mg PO TID PRN muscle s pasm #180 02/01/25 tabs gabapentin 600 mg tablet 1,200 mg (2 x 600 mg) PO TID #240 02/27/25 tabs lidocaine 5 % topical patch 1 patch topical DAILY #30 ea 02/27/25 (Lidoderm) metformin 500 mg tablet See Rx Instructions .Route 0 03/07/25 .COMPLEX #360 tabs diazepam 2 mg tablet 4 mg (2 x 2 mg) PO BEDTIME P RN 04/10/25 sleep #60 tabs venlafaxine 75 mg tablet,extended 225 mg (3 x 75 mg) P O DAILY #90 04/10/25 release 24 hr tabs tirzepatide 10 mg/0.5 mL 10 mg (0.5 mL) SUBCUT QWEEK #2 mL 04/26/25 subcutaneous pen injector (Mounjaro) tirzepatide 12.5 mg/0.5 mL 12.5 mg (0.5 mL) SUBCUT QWE EK #2 mL 04/26/25 subcutaneous pen injector (Mounjaro) amlodipine 10 mg tablet 10 mg PO DAILY #90 tabs 08 5/25 mometasone-formoterol HFA 200 See Rx Instructions .Rou te 05/07/25 mcg-5 mcg/actuation aerosol .COMPLEX #13 grams inhaler (Dulera) tiotropium bromide 18 mcg capsule See Rx Instructions .Route 05/07/25 with inhalation device (Spiriva .COMPLEX #30 caps with HandiHaler) oxycodone-acetaminophen 10 mg-325 See Rx Instructions PO .COMPLEX 05/10/25 mg tablet (Percocet) PRN pain #180 tabs clindamycin HCl 300 mg capsule 300 mg PO BID #14 caps 05/14/25 mupirocin 2 % topical ointment 1 applic topical TID #1 5 grams 05/14/25 nicotine (polacrilex) 2 mg buccal 2 mg buccal Q2-4H TN N nicotine 05/16/25 mini lozenge cravings #81 ea nicotine 14 mg/24 hr daily 1 patch transdermal DAILY # 28 ea 05/16/25 transdermal patch trazodone 150 mg tablet 150 mg PO BEDTIME PRN insomn ia #30 05/16/25 tabs buprenorphine 2 mg-naloxone 0.5 mg See Rx Instructions buccal 05/18/25 sublingual film (Suboxone) .COMPLEX #30 ea Allergies Allergy/AdvReac Type Severity Reaction Status Date / Time cephalexin (CEPHALEXIN) Allergy Mild FACIAL Verified 05/18/25 10:25 SWELLING terbinafine (TERBINAFINE) Allergy Unknown Unknown Verified 05/18/25 10:25 nut - unspecified Allergy Anaphylaxis Verified 05/18/25 10:25 benralizumab (From Fasenra) AdvReac Severe SOB Verified 05/18/25 10:25 Cephalosporins AdvReac Intermediate Vomiting Verified 05/18/25 10:25 (CEPHALOSPORINS) Penicillins (PENICILLINS) AdvReac Intermediate Vomiting Verified 05/18/25 10:25 Beta-Blockers AdvReac Mild ASTHMA Verified 05/18/25 10:25 (Beta-Adrenergic Bloc doxycycline (DOXYCYCLINE) AdvReac Mild HIVES Verified 05/18/25 10:25 nadolol (NADOLOL) AdvReac Mild AGGREVATES Verified 05/18/25 10:25 ASTHMA semaglutide (From Ozempic) AdvReac Mild CONSTIPATIO Verified 05/18/25 10:25 N Sulfa (Sulfonamide AdvReac Mild VOMITING Verified 05/18/25 10:25 Antibiotics) (SULFA (SULFONAMIDE ANTIBIOTICS)) Review of Systems Review of Systems Narrative: Narrative: See HPI. GENERAL: Denies chills, fatigue, sweats. Endorses fever. HEENT: Denies sinus pain, ear pain, sore throat, difficulty swallowing, dizziness. RESPIRATORY: Denies dyspnea, cough, wheezing, sputum. CARDIOVASCULAR: Denies chest pain, palpitations, edema. GASTROINTESTINAL: Denies vomiting, abdominal pain, diarrhea, constipation. Endorses mild nausea. : Denies dysuria, frequency, incontinence, hematuria, urinary retention, flank pain. MSK: Denies weakness, joint pain, or bony pain. SKIN: Denies rash, skin lesions, or pruritis. Endorses redness, warmth and swelling of left lower leg. NEUROLOGIC: Denies weakness, dizziness, headache, numbness, confusion. Patient History Medical History Tobacco use disorder EMA (generalized anxiety disorder) OCD (obsessive compulsive disorder) 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 Iron deficiency anemia Chronic pain syndrome Cervical stenosis of spinal canal Hypertension Hyperlipidemia Varicose vein of leg Myocarditis Surgical History No pertinent past surgical history Social History marital status: unmarried,single household members: significant other lives independently: Yes occupational status: disabled Smoking Status: Current every day smoker alcohol intake: never substance use type: does not use Smoking Status: Current every day smoker tobacco type: cigarettes alcohol intake frequency: other Exam Narrative Exam Narrative: Exam Narrative: GENERAL: This is a well-nourished, well-developed patient, in no acute distress. HEAD: Atraumatic. Normocephalic. EYES: Pupils equal round and reactive. Extraocular motions intact. No scleral icterus, injection or drainage. ENT: Nose without bleeding, purulent drainage. Airway patent. NECK: Trachea midline. No JVD or lymphadenopathy. Nontender. CARDIOVASCULAR: Regular rate and rhythm without murmurs, peripheral pulses intact, cap refill <2 sec. RESPIRATORY: Breath sounds equal and clear bilaterally. No wheezes, rales, or rhonchi. No cough. No increased respiratory effort. No accessory muscle use. GASTROINTESTINAL: Abdomen soft, non-tender, nondistended without guarding or rebound. No suprapubic pain. MSK: Moves all extremities. Normal range of motion, no clubbing or edema. Neurovascularly intact. NEURO: A&O x 3. SKIN: Warm, dry, no rashes or lesions noted. Left lower leg is red, warm and swollen from mid calf down to ankle. No signs of trauma or break in skin. Initial Vital Signs Initial Vital Signs: Vital Signs Temperature 100.8 F H 05/18/25 10:24 Pulse Rate 75 05/18/25 10:24 Respiratory Rate 18 05/18/25 10:24 Blood Pressure 133/66 05/18/25 10:24 Pulse Oximetry 92 05/18/25 10:24 Oxygen Delivery Method Room Air 05/18/25 10:24 Reviewed Course Orders Ordered: ED Orders 05/18/25 11:18 CBC Auto Diff [Complete Blood Count AUTO DIFF] Stat CMP [Comprehensive Metabolic Panel] Stat CRP [C-Reactive Protein Quant] Stat Lactate (Lactic Acid) Stat 05/18/25 11:20 Blood Culture Stat 05/18/25 12:17 US periph venous low extrem lt Stat 05/18/25 12:18 XR tibia fibula LT 2V Stat 05/18/25 13:14 ESR [Erythrocyte Sedimentation Rate] Stat Discontinued Medications Ibuprofen (Ibuprofen 400 Mg Tablet) 400 mg PO NOW ONE Stop: 05/18/25 11:37 Last Admin: 05/18/25 11:44 Dose: 400 mg Documented By: SB Consultations Consultation #1: Dr. Welch, Hospitalist. Accepted for admission. Vital Signs Vital signs: Vital Signs - 8 hr 05/18/25 10:24 05/18/25 12:28 Temperature 100.8 F H 98.0 F Pulse Rate 75 99 H Respiratory Rate 18 18 Blood Pressure 133/66 123/63 Pulse Oximetry 92 96 Oxygen Delivery Method Room Air Room Air MDM - Skin/Abscess/Foreign Bdy Differential Diagnosis Differential diagnosis: Likely cellulitis and other (sepsis) Lab Data 05/18/25 11:18 05/18/25 11:18 Labs: Lab Results 05/18/25 05/18/25 Range/Units 11:18 13:14 WBC 9.4 (4.5-11.0) X10^3/uL RBC 4.32 L (4.5-5.9) X10^6/uL Hgb 11.8 L (13.5-17.5) g/dL Hct 34.6 L (41-53) % MCV 80.0 (80-100) fL MCH 27.3 (26-34) PG MCHC 34.1 (30-36) % RDW 16.1 H (11.6-14.8) % Plt Count 169 (150-400) X10^3/uL Neut % (Auto) 85.3 H (50-75) % Lymph % (Auto) 4.3 L (25-40) % [place] % (Auto) 8.7 (3-14) % Eos % (Auto) 1.3 L (2-4) % Baso % (Auto) 0.4 (0-2) % Neut # (Auto) 8000 H (3983-1811) /uL Lymph # (Auto) 400 L (0284-1986) /uL [place] # (Auto) 800 (0-900) /uL Eos # (Auto) 100 (0-450) /uL Baso # (Auto) 0 (0-100) /uL ESR 56 H (0-15) MM/HR Sodium 123 L (137-145) mmol/L Potassium 5.1 (3.4-5.1) mmol/L Chloride 89 L (98-107) mmol/L Carbon Dioxide 23 (22-32) mmol/L BUN 23 H (9-20) mg/dL Creatinine 0.84 (0.66-1.25) mg/dL Estimated GFR > 60 (>60) mL/min BUN/Creatinine Ratio 27.4 H (6-22) Glucose 163 H (70-99) mg/dL Lactate 1.2 (0.7-2.1) mmol/L Calcium 8.7 (8.4-10.2) mg/dL Total Bilirubin 0.3 (0.2-1.3) mg/dL AST 32 (17-59) IU/L ALT 22 (<50) IU/L Alkaline Phosphatase 99 (38-126) U/L C-Reactive Protein 17.6 H (<1.0) mg/dL Total Protein 7.6 (6.3-8.2) g/dL Albumin 4.4 (3.5-5.0) g/dL Globulin 3.2 (1.7-4.1) g/dL Albumin/Globulin Ratio 1.4 (1.0-2.8) Imaging Data Extremity x-ray #1: Radiologist's Impression: [address] [address] XRay Report Signed Patient: Bandar George MR#: [id number] : 1970 Acct:[id number] Age/Sex: 55 / M Date of Service: 05/18/25 Loc: ED Accession Number: [id number] Procedure: XR tibia fibula LT 2V Ordering Provider: Maico Burns PROCEDURE: XR TIBIA FIBULA LT 2V INDICATIONS: Left lower leg pain. TECHNIQUE: 2 views of the tibia and fibula were acquired. COMPARISON: None. FINDINGS: Bones: No fractures or dislocations. No suspicious bony lesions. Medial and lateral compartment degenerative arthrosis of the knee. Small plantar calcaneal spur can be seen with plantar fasciitis in the appropriate context. Soft tissues: No suspicious soft tissue calcifications or masses. Soft tissue swelling of the lower leg without radiopaque retained foreign body or gas foci. Varicose veins. IMPRESSION: No acute bony abnormality. Dictated by: Mehul Contreras M.D. on 05/18/2025 at 13:10 Approved by: Mehul Contreras M.D. on 05/18/2025 at 13:10 US - DVT: Radiologist's Impression: [address] [address] Ultrasound Report Signed Patient: Bandar George MR#: [id number] : 1970 Acct:[id number] Age/Sex: 55 / M Date of Service: 05/18/25 Loc: 90A-1 Accession Number: [id number] Procedure: US periph venous low extrem lt Ordering Provider: Maico Bruns PROCEDURE: US PERIPH VENOUS LOW EXTREM LT INDICATIONS: SWELLING TECHNIQUE: Real-time imaging, as well as color and pulse Doppler interrogation, were performed of the lower extremity deep veins from the inguinal ligament to the popliteal fossa, with documentation of the visualized calf veins. COMPARISON: [facility], , XR TIBIA FIBULA LT 2V, 05/18/2025, 12:34. FINDINGS: The common femoral, femoral, popliteal, and the visualized calf veins are normally compressible, and free of intraluminal thrombus. Color and pulse Doppler demonstrate normal phasic intraluminal flow. There is normal augmentation response to distal compression maneuver. Distal soft tissue edema can be seen. IMPRESSION: No findings of lower extremity deep venous thrombosis. Dictated by: Theo Landa M.D. on 05/18/2025 at 13:28 Approved by: Theo Landa M.D. on 05/18/2025 at 13:28 MDM Narrative Medical decision making narrative: 55-year-old male with left lower leg redness, warmth and swelling. Clinical findings were consistent with cellulitis. As patient appears to have developed cellulitis of a different extremity, and is already on clindamycin, will obtain baseline labs and cultures. Discussed case with Dr. Renee. Once we have the results, will contact the hospitalist for admission. Concerning labs reveal a sodium of 123, chloride of 89, ESR of 56 and CRP of 17.6. Left tib-fib x-ray was negative. Ultrasound for DVT was negative. Contacted hospitalist, Dr. Welch, who will accept the patient for admission. Discharge Plan Departure Patient Disposition: Admitted As Inpatient Clinical Impression: Cellulitis Qualifiers: Site of cellulitis: extremity Site of cellulitis of extremity: lower extremity Laterality: left Qualified Code(s): L03.116 - Cellulitis of left lower limb Admit Date/Time: 05/18/25 14:19 Admit Provider: Baltazar Welch V
[2025-05-18] MEDS: IBUPROFEN 400 MG TABLET PO (11:44)
[2025-05-18 11:46] LABS: Add Manual Diff / Slide Review NO; Hematocrit 34.6 % (41-53); Hemoglobin 11.8 g/dL (13.5-17.5); Lymphocytes Absolute Auto 400 /uL (1100-4500); Mean Corpuscular HGB Conc 34.1 % (30-36); Mean Corpuscular Hemoglobin 27.3 PG (26-34); Mean Corpuscular Volume 80.0 fL (80-100); Platelet Count 169 X10^3/uL (150-400)
[2025-05-18 11:56] LABS: Lactate (Lactic Acid) 1.2 mmol/L (0.7-2.1)
[2025-05-18 11:58] LABS: Alanine Aminotransferase 22 IU/L (<50); Albumin 4.4 g/dL (3.5-5.0); Albumin Globulin Ratio 1.4 (1.0-2.8); Alkaline Phosphatase 99 U/L (38-126); Blood Urea Nitrogen 23 mg/dL (9-20); Calcium 8.7 mg/dL (8.4-10.2); Carbon Dioxide 23 mmol/L (22-32); Chloride 89 mmol/L (98-107); Estimated Glomerular Filt Rate > 60 mL/min (>60); Globulin 3.2 g/dL (1.7-4.1); Glucose 163 mg/dL (70-99); HEMOLYSIS < 15 (0-50); Potassium 5.1 mmol/L (3.4-5.1); Sodium 123 mmol/L (137-145); Total Protein 7.6 g/dL (6.3-8.2)
--- NOTE | 2025-05-18 12:17 | DI.US.S_ITS ---
PROCEDURE: US PERIPH VENOUS LOW EXTREM LT INDICATIONS: SWELLING TECHNIQUE: Real-time imaging, as well as color and pulse Doppler interrogation, were performed of the lower extremity deep veins from the inguinal ligament to the popliteal fossa, with documentation of the visualized calf veins. COMPARISON: [facility], CR, XR TIBIA FIBULA LT 2V, 05/18/2025, 12:34. FINDINGS: The common femoral, femoral, popliteal, and the visualized calf veins are normally compressible, and free of intraluminal thrombus. Color and pulse Doppler demonstrate normal phasic intraluminal flow. There is normal augmentation response to distal compression maneuver. Distal soft tissue edema can be seen. IMPRESSION: No findings of lower extremity deep venous thrombosis. Dictated by: Theo Landa M.D. on 05/18/2025 at 13:28 Approved by: Theo Landa M.D. on 05/18/2025 at 13:28
--- NOTE | 2025-05-18 12:18 | DI.RAD.S_ITS ---
PROCEDURE: XR TIBIA FIBULA LT 2V INDICATIONS: Left lower leg pain. TECHNIQUE: 2 views of the tibia and fibula were acquired. COMPARISON: None. FINDINGS: Bones: No fractures or dislocations. No suspicious bony lesions. Medial and lateral compartment degenerative arthrosis of the knee. Small plantar calcaneal spur can be seen with plantar fasciitis in the appropriate context. Soft tissues: No suspicious soft tissue calcifications or masses. Soft tissue swelling of the lower leg without radiopaque retained foreign body or gas foci. Varicose veins. IMPRESSION: No acute bony abnormality. Dictated by: Mehul Contreras M.D. on 05/18/2025 at 13:10 Approved by: Mehul Contreras M.D. on 05/18/2025 at 13:10
[2025-05-18 12:28] VITALS: BP 123/63; PULSE 99; RESP 18; TEMP 36.7; O2SAT 96
[2025-05-18 15:12] VITALS: BMI 37.7
[2025-05-18 15:30] VITALS: BP 116/62; PULSE 94; RESP 16; TEMP 35.6; O2SAT 91
--- NOTE | 2025-05-18 17:15 | P.HP_ITS ---
History of Present Illness History of Present Illness Date Patient Seen: 05/18/25 Chief complaint: Left leg red and swollen Narrative: Chief complaint: Painful redness and swelling of left lower leg due to cellulitis History of present illness: 55-year-old with multiple chronic medical problems morbid obesity chronic venous insufficiency 5 days ago developed a hand cellulitis after a skin abrasion on his right forearm treated with oral clindamycin outpatient. The hand cellulitis seemed to improve but 5 days after developed this redness swelling and pain of his left lower leg. Today he developed temperature to 100.8 has been using Tylenol and ibuprofen to treat his fever Patient has multiple medication allergies In the emergency department: Labs reveal a sodium of 123, chloride of 89, ESR of 56 and CRP of 17.6. Left tib-fib x-ray was negative. Ultrasound for DVT was negative. Past medical history: Chronic pain on chronic opiates Tobacco use disorder EMA (generalized anxiety disorder) OCD (obsessive compulsive disorder) 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 Iron deficiency anemia Chronic pain syndrome Cervical stenosis of spinal canal Hypertension Hyperlipidemia Varicose vein of leg Myocarditis Review of systems: No unusual weight loss or weight No chest pain shortness for breath No nausea vomiting diarrhea no abdominal pain No paresthesia paresis No urinary symptoms Physical exam: Obese chronically ill-appearing male with apparent dramatic recent weight loss HEENT unremarkable Heart rate and rhythm regular no murmurs Lungs clear to auscultation Abdomen nondistended Neuro nonfocal Extremities: Right upper extremities some minimal and residual cellulitis of the right upper extremity Bilateral lower extremities have extensive very large varicose veins Left lower leg has above the calf to the ankle erythema edema without bullus formation For objective laboratory and imaging studies please see the bottom of the note: Assessment and plan: Cellulitis of left lower leg 5 days after cellulitis of the right hand; the hand improved with clindamycin however this other cellulitis of left leg appeared afterwards suggesting development of resistance * Vancomycin for MRSA coverage * Ciprofloxacin for Pseudomonas coverage * Blood cultures * Multiple allergies to cephalosporins and penicillins * Consider imipenem if there is not response * Consider daptomycin if there is not response Hyponatremia with infection and while taking ibuprofen, spironolactone and losartan which could all inhibits sodium retention * Hold losartan spironolactone and ibuprofen until sodium normalizes * Gentle hydration with normal saline * Daily monitoring of basic metabolic Chronic Medical problems: * Chronic pain on chronic opiates * Tobacco use disorder * EMA (generalized anxiety disorder) * OCD (obsessive compulsive disorder) * 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 * Iron deficiency anemia * Chronic pain syndrome * Cervical stenosis of spinal canal * Hypertension * Hyperlipidemia * Varicose vein of leg * Myocarditis DVT prophylaxis: * Subcutaneous heparin PFSH Medical History Tobacco use disorder EMA (generalized anxiety disorder) OCD (obsessive compulsive disorder) 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 Iron deficiency anemia Chronic pain syndrome Cervical stenosis of spinal canal Hypertension Hyperlipidemia Varicose vein of leg Myocarditis Surgical History No pertinent past surgical history Social History marital status: unmarried,single household members: significant other lives independently: Yes occupational status: disabled Smoking Status: Current every day smoker alcohol intake: never substance use type: does not use Meds Home Medications and Allergies Home Medications ?Medication ?Instructions ?Recorded ?Confirmed ?Type epinephrine 0.3 mg/0.3 mL 0.3 mg (0.3 mL) IM SEE 07/1705/18/25 Rx injection, auto-injector (EpiPen INSTRUCTIONS #2 ea 2-Nura) spironolactone 25 mg tablet 25 mg PO BID 12/28/2302/04 History furosemide 40 mg tablet See Rx Instructions .Route 0 06/10/24 05/18/25 History .COMPLEX PRN Swelling ipratropium 0.5 mg-albuterol 3 mg 3 ml INH RTQ6HR PRN Shortness Of 06/12/24 05/18/25 Rx (2.5 mg base)/3 mL nebulization Breath #120 doses soln nicotine 14 mg/24 hr daily 1 patch transdermal DAILY # 14 ea 06/12/24 05/18/25 Rx transdermal patch (Nicoderm CQ) ondansetron 4 mg disintegrating 4 mg PO Q8H PRN nausea and 01/24/25 05/18/25 Rx tablet vomiting #14 tabs albuterol sulfate 90 mcg/actuation See Rx Instructions .Route 01/31/25 05/18/25 Rx aerosol inhaler .COMPLEX #8.5 grams ferrous gluconate 324 mg (37.5 mg 324 mg PO DAILY #90 tabs 01/31/25 05/18/25 Rx iron) tablet finasteride 5 mg tablet 5 mg PO DAILY #90 tabs 01/3105/18/25 Rx losartan 100 mg tablet 100 mg PO DAILY #90 tabs 05/18/25 Rx prednisone 10 mg tablet 10 mg PO BEDTIME #90 tabs 05/18/25 Rx cyclobenzaprine 10 mg tablet 10 mg PO TID PRN muscle s pasm #180 02/01/25 05/18/25 Rx tabs gabapentin 600 mg tablet 1,200 mg (2 x 600 mg) PO TID #240 02/27/25 05/18/25 Rx tabs lidocaine 5 % topical patch 1 patch topical DAILY #30 ea 02/27/25 05/18/25 Rx (Lidoderm) metformin 500 mg tablet See Rx Instructions .Route 0 03/07/25 05/18/25 Rx .COMPLEX #360 tabs diazepam 2 mg tablet 4 mg (2 x 2 mg) PO BEDTIME P RN 04/10/25 05/18/25 Rx sleep #60 tabs tirzepatide 10 mg/0.5 mL 10 mg (0.5 mL) SUBCUT QWEEK #2 mL 04/26/25 05/18/25 Rx subcutaneous pen injector (Mounjaro) amlodipine 10 mg tablet 10 mg PO DAILY #90 tabs 04/1405/18/25 Rx mometasone-formoterol HFA 200 See Rx Instructions .Rou te 05/07/25 05/18/25 Rx mcg-5 mcg/actuation aerosol .COMPLEX #13 grams inhaler (Dulera) oxycodone-acetaminophen 10 mg-325 See Rx Instructions PO .COMPLEX 05/10/25 05/18/25 Rx mg tablet (Percocet) PRN pain #180 tabs mupirocin 2 % topical ointment 1 applic topical TID #1 5 grams 05/14/25 05/18/25 Rx nicotine (polacrilex) 2 mg buccal 2 mg buccal Q2-4H NH N nicotine 05/16/25 05/18/25 Rx mini lozenge cravings #81 ea nicotine 14 mg/24 hr daily 1 patch transdermal DAILY # 28 ea 05/16/25 05/18/25 Rx transdermal patch trazodone 150 mg tablet 150 mg PO BEDTIME PRN insomn ia #30 05/16/25 05/18/25 Rx tabs beclomethasone dipropionate 80 See Rx Instructions .Ro radha .COMPLEX 05/18/25 05/18/25 History mcg/actuation HFA breath activated aerosol (Qvar RediHaler) buprenorphine 2 mg-naloxone 0.5 mg See Rx Instructions buccal 05/18/25 05/18/25 Rx sublingual film (Suboxone) .COMPLEX #30 ea tiotropium bromide 18 mcg capsule See Rx Instructions .Route .COMPLEX 05/18/25 05/18/25 History with inhalation device (Spiriva with HandiHaler) venlafaxine 75 mg tablet,extended 25 mg PO DAILY 05/1805/18/25 History release 24 hr Allergies Allergy/AdvReac Type Severity Reaction Status Date / Time cephalexin (CEPHALEXIN) Allergy Mild FACIAL Verified 05/18/25 10:25 SWELLING terbinafine (TERBINAFINE) Allergy Unknown Unknown Verified 05/18/25 10:25 nut - unspecified Allergy Anaphylaxis Verified 05/18/25 10:25 benralizumab (From Fasenra) AdvReac Severe SOB Verified 05/18/25 10:25 Cephalosporins AdvReac Intermediate Vomiting Verified 05/18/25 10:25 (CEPHALOSPORINS) Penicillins (PENICILLINS) AdvReac Intermediate Vomiting Verified 05/18/25 10:25 Beta-Blockers AdvReac Mild ASTHMA Verified 05/18/25 10:25 (Beta-Adrenergic Bloc doxycycline (DOXYCYCLINE) AdvReac Mild HIVES Verified 05/18/25 10:25 nadolol (NADOLOL) AdvReac Mild AGGREVATES Verified 05/18/25 10:25 ASTHMA semaglutide (From Ozempic) AdvReac Mild CONSTIPATIO Verified 05/18/25 10:25 N Sulfa (Sulfonamide AdvReac Mild VOMITING Verified 05/18/25 10:25 Antibiotics) (SULFA (SULFONAMIDE ANTIBIOTICS)) Exam Vital Signs (past 8 hours): - 05/18/25 10:24 05/18/25 12:28 05/18/25 16:00 Temperature 100.8 F H 98.0 F Pulse Rate 75 99 H Respiratory Rate 18 18 Blood Pressure 133/66 123/63 Pulse Oximetry 92 96 Oxygen Delivery Method Room Air Room Air Room Air Oxygen Delivery Method Room Air Objective Labs 05/18/25 11:18 05/18/25 11:18 Labs: Laboratory Results - last 24 hr 05/18/25 05/18/25 11:18 13:14 WBC 9.4 RBC 4.32 L Hgb 11.8 L Hct 34.6 L MCV 80.0 MCH 27.3 MCHC 34.1 RDW 16.1 H Plt Count 169 Neut % (Auto) 85.3 H Lymph % (Auto) 4.3 L [place] % (Auto) 8.7 Eos % (Auto) 1.3 L Baso % (Auto) 0.4 Neut # (Auto) 8000 H Lymph # (Auto) 400 L [place] # (Auto) 800 Eos # (Auto) 100 Baso # (Auto) 0 ESR 56 H Sodium 123 L Potassium 5.1 Chloride 89 L Carbon Dioxide 23 BUN 23 H Creatinine 0.84 Estimated GFR > 60 BUN/Creatinine Ratio 27.4 H Glucose 163 H Lactate 1.2 Calcium 8.7 Total Bilirubin 0.3 AST 32 ALT 22 Alkaline Phosphatase 99 C-Reactive Protein 17.6 H Total Protein 7.6 Albumin 4.4 Globulin 3.2 Albumin/Globulin Ratio 1.4 Assessment & Plan Time-Based Coding :: [TOTAL MINUTES] spent with patient and on the chart (including review of chart, obtaining history, exam, reviewing outside data, placing orders, documenting exam and treatment plan, and counseling patient) on [DATE]. Quality VTE Deep Vein Thrombosis/Pulmonary Embolism Present on Admission: No
[2025-05-18] MEDS: CIPROFLOXACIN 400 MG/200 ML PIGGYBACK 200 MG IV (17:27)
[2025-05-18] MEDS: SODIUM CHLORIDE 0.9% 1,000 ML 84 ML IV (18:02)
--- NOTE | 2025-05-18 18:13 | PC.ADMIT ---
[email or web address] Admission Note: The patient,Bandar George,55 y/o, was given written information regarding hospital policies, unit procedures and contact persons. Patient's smoking status: Current every day smoker. Vital Signs - 8 hr 05/18/25 10:24 05/18/25 12:28 05/18/25 16:00 Temperature 100.8 F H 98.0 F Pulse Rate 75 99 H Respiratory Rate 18 18 Blood Pressure 133/66 123/63 Pulse Oximetry 92 96 Oxygen Delivery Method Room Air Room Air Room Air PT ARRIVED FROM ED AT 1528. 91% SPO2 ON ROOM AIR. NO C/O SOB OR S/S OF RESPI DISTRESS. ALERT/ ORIENTEDX4. R FA AC IV. PT WITH HOME MEDICATIONS IN MED MINDER AT BEDSIDE/ REFUSING PLACEMENT OF MEDS IN PHARMACY SAFE. EDUCATED PT ON HOME MEDICATION POLICY AND IMPORTANCE OF NOT TAKING HOME MEDS FOR SAFETY. ORIENTED TO ROOM. DR VILLARREAL MADE AWARE OF PT ARRIVAL. STATES DR RILEY IS TO COME IN AND REVIEW PATIENT CHART. [id number] MADE MD RILEY AWARE OF PATIENT WITH NO ORDERS ON CHART AND PT REQUESTING PAIN MEDICATIONS BE RESTARTED D/T CHRONIC PAIN AND EXTENSIVE PAIN MED REGIMEN. TO REVIEW AND PLACE ORDERS. ROSEMARY ROUNDED ON PATIENT AND DISCUSSED POC.
[2025-05-18 18:28] VITALS: BP 106/51; PULSE 79; RESP 16; TEMP 35.9; O2SAT 93
[2025-05-18] MEDS: VANCOMYCIN 1,250 MG/250 ML PIGGYBACK 250 MG IV (18:59)
[2025-05-18 20:00] VITALS: BP 100/54; PULSE 79; RESP 17; TEMP 36.5; O2SAT 91
[2025-05-18] MEDS: BUPRENORPHINE NALOXONE 1 EACH SL (20:49)
[2025-05-18] MEDS: GABAPENTIN 600 MG TABLET 1200 MG PO (20:49)
[2025-05-18] MEDS: CYCLOBENZAPRINE 10 MG TABLET PO (20:50)
[2025-05-18] MEDS: HEPARIN 5,000 UNIT/ML VIAL 5000 UNIT SUBCUT (20:51)
[2025-05-18] MEDS: BUDESONIDE 0.5 MG/2 ML NEB INH (20:57)
[2025-05-18] MEDS: ALBUTEROL/IPRATROPIUM 3 ML AMPUL INH (20:57)
[2025-05-18 20:59] VITALS: PULSE 92; RESP 16; O2SAT 95
[2025-05-19] VITALS (11 sets, daily range): BP systolic 114–129; BP diastolic 44–66; PULSE 66–120; RESP 14–20; TEMP 36.2–39.6; O2SAT 91–95
[2025-05-19] MEDS: VANCOMYCIN 1,250 MG/250 ML PIGGYBACK 250 MG IV ×3 (02:44→18:47)
[2025-05-19] MEDS: SODIUM CHLORIDE 0.9% 1,000 ML 84 ML IV ×2 (04:22→15:58)
[2025-05-19] MEDS: CIPROFLOXACIN 400 MG/200 ML PIGGYBACK 200 MG IV ×2 (04:23→17:05)
[2025-05-19] MEDS: NICOTINE 14 PATCH 14 MG TOP (04:26)
[2025-05-19] MEDS: BUPRENORPHINE NALOXONE 1 EACH SL ×3 (06:48→20:25)
[2025-05-19] MEDS: INSULIN LISPRO 100 UNIT/ML 3ML VIAL SUBCUT ×3 (08:56→17:05)
[2025-05-19] MEDS: FERROUS SULFATE 325 MG TABLET PO (08:57)
[2025-05-19] MEDS: HEPARIN 5,000 UNIT/ML VIAL 5000 UNIT SUBCUT ×2 (08:58→20:24)
[2025-05-19] MEDS: BUDESONIDE 0.5 MG/2 ML NEB INH ×2 (08:58→19:32)
[2025-05-19] MEDS: FINASTERIDE 5 MG TABLET PO (08:58)
[2025-05-19] MEDS: ALBUTEROL/IPRATROPIUM 3 ML AMPUL INH ×4 (08:58→23:36)
[2025-05-19] MEDS: GABAPENTIN 600 MG TABLET 1200 MG PO ×2 (08:58→15:48)
[2025-05-19] MEDS: CYCLOBENZAPRINE 10 MG TABLET PO ×2 (09:11→15:49)
--- NOTE | 2025-05-19 09:22 | P.PN_ITS ---
Subjective Subjective Date Patient Seen: 05/19/25 Interval history: Chief complaint: Painful redness and swelling of left lower leg due to cellulitis History of present illness: 55-year-old with multiple chronic medical problems morbid obesity chronic venous insufficiency 5 days ago developed a hand cellulitis after a skin abrasion on his right forearm treated with oral clindamycin outpatient. The hand cellulitis seemed to improve but 5 days after developed this redness swelling and pain of his left lower leg. Today he developed temperature to 100.8 has been using Tylenol and ibuprofen to treat his fever Patient has multiple medication allergies In the emergency department: Labs reveal a sodium of 123, chloride of 89, ESR of 56 and CRP of 17.6. Left tib-fib x-ray was negative. Ultrasound for DVT was negative. Hospital course: 05/19: Patient is feeling better tolerating diet sodium improved to 128 leg has less pain Review of systems: No unusual weight loss or weight No chest pain shortness for breath No nausea vomiting diarrhea no abdominal pain No paresthesia paresis No urinary symptoms Physical exam: Obese chronically ill-appearing male with apparent dramatic recent weight loss HEENT unremarkable Heart rate and rhythm regular no murmurs Lungs clear to auscultation Abdomen nondistended Neuro nonfocal Extremities: Right upper extremities some minimal and residual cellulitis of the right upper extremity Bilateral lower extremities have extensive very large varicose veins Left lower leg has above the calf to the ankle erythema edema less edema today without bullus formation For objective laboratory and imaging studies please see the bottom of the note: Assessment and plan: Cellulitis of left lower leg 5 days after cellulitis of the right hand; the hand improved with clindamycin however this other cellulitis of left leg appeared afterwards suggesting development of resistance * Vancomycin for MRSA coverage * Ciprofloxacin for Pseudomonas coverage * Blood cultures no growth in 24 hour * Multiple allergies to cephalosporins and penicillins * Consider imipenem if there is not response * Consider daptomycin if there is not response * At time of discharge may do well on doxycycline ciprofloxacin Hyponatremia with infection and while taking ibuprofen, spironolactone and losartan which could all inhibits sodium retention * Hold losartan spironolactone and ibuprofen until sodium normalizes * Gentle hydration with normal saline * Daily monitoring of basic metabolic Chronic Medical problems: * Chronic pain on chronic opiates * Tobacco use disorder * EMA (generalized anxiety disorder) * OCD (obsessive compulsive disorder) * 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 * Iron deficiency anemia * Chronic pain syndrome * Cervical stenosis of spinal canal * Hypertension * Hyperlipidemia * Varicose vein of leg * Myocarditis DVT prophylaxis: * Subcutaneous heparin Disposition: * Anticipate 24-48 hours with probable discharge either a 05/20 or 05/21/2005 Code status: * Full code blue Time based billin minutes were involved in the management of this patient including [id number] evaluation with the patient direct physical examination review of objective findings and discussion with nursing team Exam Vital Signs (past 8 hours): - 05/19/25 06:00 05/19/25 08:01 05/19/25 08:58 Temperature 97.2 F L 97.7 F Pulse Rate 88 94 H 99 H Respiratory Rate 16 18 14 Blood Pressure 114/60 120/56 L Pulse Oximetry 92 95 93 Oxygen Delivery Method Room Air Oxygen Flow Rate 0 Fraction of Inspired Oxygen 21 SaO2/FiO2 Ratio 457 Oxygen Delivery Method Room Air Oxygen Flow Rate 0 Objective Labs 05/18/25 11:18 05/18/25 11:18 Labs: Laboratory Results - last 24 hr 05/18/25 05/18/25 05/18/25 11:18 13:14 20:43 WBC 9.4 RBC 4.32 L Hgb 11.8 L Hct 34.6 L MCV 80.0 MCH 27.3 MCHC 34.1 RDW 16.1 H Plt Count 169 Neut % (Auto) 85.3 H Lymph % (Auto) 4.3 L [place] % (Auto) 8.7 Eos % (Auto) 1.3 L Baso % (Auto) 0.4 Neut # (Auto) 8000 H Lymph # (Auto) 400 L [place] # (Auto) 800 Eos # (Auto) 100 Baso # (Auto) 0 ESR 56 H Sodium 123 L Potassium 5.1 Chloride 89 L Carbon Dioxide 23 BUN 23 H Creatinine 0.84 Estimated GFR > 60 BUN/Creatinine Ratio 27.4 H Glucose 163 H POC Whole Bld Glucose 121 H Lactate 1.2 Calcium 8.7 Total Bilirubin 0.3 AST 32 ALT 22 Alkaline Phosphatase 99 C-Reactive Protein 17.6 H Total Protein 7.6 Albumin 4.4 Globulin 3.2 Albumin/Globulin Ratio 1.4 05/19/25 08:20 WBC RBC Hgb Hct MCV MCH MCHC RDW Plt Count Neut % (Auto) Lymph % (Auto) [place] % (Auto) Eos % (Auto) Baso % (Auto) Neut # (Auto) Lymph # (Auto) [place] # (Auto) Eos # (Auto) Baso # (Auto) ESR Sodium Potassium Chloride Carbon Dioxide BUN Creatinine Estimated GFR BUN/Creatinine Ratio Glucose POC Whole Bld Glucose 155 H Lactate Calcium Total Bilirubin AST ALT Alkaline Phosphatase C-Reactive Protein Total Protein Albumin Globulin Albumin/Globulin Ratio PFSH Medical History Tobacco use disorder EMA (generalized anxiety disorder) OCD (obsessive compulsive disorder) 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 Iron deficiency anemia Chronic pain syndrome Cervical stenosis of spinal canal Hypertension Hyperlipidemia Varicose vein of leg Myocarditis Surgical History No pertinent past surgical history Social History marital status: unmarried,single household members: significant other lives independently: Yes occupational status: disabled Smoking Status: Current every day smoker alcohol intake: never substance use type: does not use Assessment & Plan Time-Based Coding :: [TOTAL MINUTES] spent with patient and on the chart (including review of chart, obtaining history, exam, reviewing outside data, placing orders, documenting exam and treatment plan, and counseling patient) on [DATE]. Quality VTE Deep Vein Thrombosis/Pulmonary Embolism Present on Admission: No
[2025-05-19 09:25] LABS: Blood Urea Nitrogen 14 mg/dL (9-20); Calcium 8.6 mg/dL (8.4-10.2); Carbon Dioxide 23 mmol/L (22-32); Chloride 95 mmol/L (98-107); Estimated Glomerular Filt Rate > 60 mL/min (>60); Glucose 170 mg/dL (70-99); HEMOLYSIS < 15 (0-50); Potassium 4.2 mmol/L (3.4-5.1); Sodium 128 mmol/L (137-145)
--- NOTE | 2025-05-19 18:30 | PC.NURSE ---
PATIENT REMAINED A/OX4 ON ROOM AIR WITH NO C/O SOB OR S/S OF RESPI DISTRESS NOTED. L LEG APPEARS LESS RED/ SWOLLEN UPON ASSESSMENT. PT STATES RELIEF OF PAIN TO LEG. SNEDECKER/ KOTAL ROUNDED ON PATIENT. BLOOD PRESSURE MEDICATIONS HELD. IV ATBX CONTINUED. SEE EMAR FOR MEDICATIONS GIVEN. PATIENT RECEIVING HOME DOSE OF PAIN MEDICATIONS. ROBERT IN PHARMACY NOTIFIED OF ERROR WITH SUBOXONE LABEL WHEN SCANNING. PT IS TO RECIEVE 1/2 THE FILM IN PACKAGING. ROBERT TO ADJUST MEDICATION. POSSIBLE D/C HOME TOMORROW. 1828: PHARMACY OUT OF PATIENT'S HOME SUBOXONE MEDICATION AFTER NIGHT DOSE ON 05/19. PATIENT'S PARTNER BROUGHT TWO MORE FILMS FROM HOME. PHARMACY GONE FOR THE DAY AND UNABLE TO LABEL. MEDICATION PLACED IN COORDINATOR OFFICE LOCKED SAFE BY FRANCIA SANDOVAL AND ROBERT IN PHARMACY WILL LABEL IN AM.
[2025-05-19] MEDS: VANCOMYCIN TROUGH 1 REQUEST MISC (18:45)
[2025-05-20] VITALS (44 sets, daily range): BP systolic 113–158; BP diastolic 55–69; PULSE 98–132; RESP 10–47; TEMP 31.1–39.4; O2SAT 77–99
[2025-05-20] MEDS: ACETAMINOPHEN 325 MG TABLET 650 MG PO (00:08)
--- NOTE | 2025-05-20 00:13 | PC.NURSE ---
2000: Patient febrile with oral temp of 101-102. Patient stated he felt better besides feeling flushed. Contacted Dr. Rojas and PRN acetaminophen ordered and administered. Patient resting comfortably in reclining chair with call light within reach. 2345: Patient febrile with oral temp of 103. Applied cool wash cloths and icepacks and patient given ice cold water. Patient stated he feels fine other than being warm. Notified Dr. Rojas of increased temp and advised to continue with current cooling methods. Notified patient of MD communication. Patient was increasingly anxious due to elevated temp. Diazepam offered for patient to rest more comfortably, patient accepted. Patient now resting in reclining chair comfortably.
[2025-05-20] MEDS: VANCOMYCIN 1,250 MG/250 ML PIGGYBACK 250 MG IV ×3 (02:19→17:31)
[2025-05-20] MEDS: CIPROFLOXACIN 400 MG/200 ML PIGGYBACK 200 MG IV (04:46)
[2025-05-20 07:11] LABS: Blood Urea Nitrogen 13 mg/dL (9-20); Calcium 8.7 mg/dL (8.4-10.2); Carbon Dioxide 19 mmol/L (22-32); Chloride 94 mmol/L (98-107); Estimated Glomerular Filt Rate > 60 mL/min (>60); Glucose 197 mg/dL (70-99); HEMOLYSIS < 15 (0-50); Potassium 4.4 mmol/L (3.4-5.1); Sodium 125 mmol/L (137-145)
[2025-05-20] MEDS: BUDESONIDE 0.5 MG/2 ML NEB INH ×2 (08:25→19:08)
[2025-05-20] MEDS: ALBUTEROL/IPRATROPIUM 3 ML AMPUL INH ×5 (08:25→23:08)
[2025-05-20] MEDS: HEPARIN 5,000 UNIT/ML VIAL 5000 UNIT SUBCUT ×2 (08:26→19:51)
[2025-05-20] MEDS: GABAPENTIN 600 MG TABLET 1200 MG PO ×3 (08:27→19:50)
[2025-05-20] MEDS: FINASTERIDE 5 MG TABLET PO (08:27)
[2025-05-20] MEDS: FERROUS SULFATE 325 MG TABLET PO (08:27)
[2025-05-20] MEDS: FUROSEMIDE 40 MG/4 ML VIAL IV ×2 (08:29→14:58)
[2025-05-20] MEDS: INSULIN LISPRO 100 UNIT/ML 3ML VIAL SUBCUT ×4 (08:30→20:17)
[2025-05-20] MEDS: NICOTINE 14 PATCH 14 MG TOP (08:31)
[2025-05-20] MEDS: BUPRENORPHINE NALOXONE 1 EACH SL ×3 (09:38→19:50)
--- NOTE | 2025-05-20 09:48 | DI.CT.S_ITS ---
PROCEDURE: CT ANGIO CHEST PE PROTOCOL INDICATIONS: hypoxia TECHNIQUE: After the administration of intravenous contrast, 2 mm thick sections acquired from the pulmonary apices to the posterior costophrenic angles. This patient was scanned twice, secondary to bolus timing. 3-dimensional maximum intensity projection (MIP) coronal and sagittal reformats were then acquired through the thorax. For radiation dose reduction, the following was used: automated exposure control, adjustment of mA and/or kV according to patient size. COMPARISON: [facility], US, US PERIPH VENOUS LOW EXTREM LT, 05/18/2025, 14:00. [facility], CT, CT ANGIO CHEST PE PROTOCOL, 07/23/2024, 18:56. FINDINGS: Image quality: Limited by bolus timing. Pulmonary arteries: The pulmonary arteries are poorly opacified. No large or central pulmonary embolism can be seen. The pulmonary arteries demonstrate normal size. Lower Neck: No enlarged lymph nodes. Thyroid: No thyroid nodules which require sonographic follow up, per consensus guidelines. Axillae: No enlarged lymph nodes. Chest Wall: Unremarkable. Bones: Unremarkable. Lungs and Pleura: Extensive patchy pulmonary infiltrates are seen with dense consolidation with air bronchograms within the left lower lobe. Heart: Heart size is normal. No pericardial effusion. Mild coronary artery calcification can be seen. Thoracic Vessels: No aortic aneurysm. Mediastinum and Lulu: Enlarged mediastinal lymph nodes are seen, including a precarinal lymph node measuring 15 x 13 mm. Esophagus: No wall thickening. No hiatal hernia. Upper Abdomen: The liver is enlarged. Irregularity is seen of the right kidney. The visualized portions of the upper abdominal structures are otherwise unremarkable for imaging technique. IMPRESSION: Study limited by bolus timing, yet without a large or central pulmonary embolism. Extensive pulmonary infiltrates are seen, including dense consolidation within the left lower lobe. - Followup chest chest CT in 4-8 weeks would be recommended to monitor for resolution. Mildly enlarged mediastinal lymph nodes are seen, which may be reactive. Additional findings: Mild coronary artery calcification Hepatomegaly Dictated by: Theo Landa M.D. on 05/20/2025 at 10:48 Approved by: Theo Landa M.D. on 05/20/2025 at 10:51
[2025-05-20] MEDS: SODIUM CHLORIDE 0.9% 1,000 ML 84 ML IV (12:01)
--- NOTE | 2025-05-20 12:49 | P.PN_ITS ---
Subjective Subjective Date Patient Seen: 05/20/25 Time Patient Seen: 07:50 Interval history: Chief complaint: Painful redness and swelling of left lower leg due to cellulitis History of present illness: 55-year-old with multiple chronic medical problems morbid obesity chronic venous insufficiency 5 days ago developed a hand cellulitis after a skin abrasion on his right forearm treated with oral clindamycin outpatient. The hand cellulitis seemed to improve but 5 days after developed this redness swelling and pain of his left lower leg. Today he developed temperature to 100.8 has been using Tylenol and ibuprofen to treat his fever Patient has multiple medication allergies In the emergency department: Labs reveal a sodium of 123, chloride of 89, ESR of 56 and CRP of 17.6. Left tib-fib x-ray was negative. Ultrasound for DVT was negative. Hospital course: 05/19: Patient is feeling better tolerating diet sodium improved to 128 leg has less pain 05/20: The patient is noted to be hypoxic this morning, with oxygen saturations of 85% on 6 L nasal cannula oxygen. He denies any cough, shortness breath or aspiration events but does note that he feels weak and lightheaded today. Feels his cellulitis has resolved. His sodium was 125. He had over 5 L of fluid intake yesterday. He was administered 40 of IV furosemide and a CT angiogram obtained which showed diffuse bilateral infiltrates worse on the left. He has a history of cervical myelopathy and has been determined to be a nonsurgical candidate. He denies dysphagia symptoms but states he has trouble swallowing pills sometimes. He continues on high-dose opioid therapy. He is seen with his partner at bedside. They are unaware of excessive sedation or aspiration events. Exam Vital Signs (past 8 hours): - 05/20/25 05:00 05/20/25 08:25 05/20/25 08:56 Temperature 98.9 F 98.9 F Pulse Rate 102 H 107 H Respiratory Rate 16 25 H Blood Pressure 127/66 Pulse Oximetry 99 97 Oxygen Delivery Method Nasal Cannula Oxygen Flow Rate 3.5 05/20/25 11:56 05/20/25 12:26 Temperature Pulse Rate 98 H 107 H Respiratory Rate 20 18 Blood Pressure 140/65 Pulse Oximetry 91 88 L Oxygen Delivery Method Nasal Cannula Oxygen Flow Rate 3.5 Fraction of Inspired Oxygen 3 SaO2/FiO2 Ratio 3066 Oxygen Delivery Method Nasal Cannula Oxygen Flow Rate 3.5 Narrative Exam Narrative: Chronically ill-appearing male in mild respiratory distress HEENT unremarkable Heart rate and rhythm regular no murmurs Lungs diffuse coars rhonchi, crackles posteriorly and anteriorly Abdomen nondistended Neuro nonfocal Extremities: Right upper extremities some minimal and residual cellulitis of the right upper extremity Bilateral lower extremities have extensive very large varicose veins Left lower leg has mild distal erythema anteriorly. Objective Imaging *: Radiologist's impression: 1. Left leg venous ultrasound 05/18/2025: No findings of lower extremity deep venous thrombosis. 2. Tibia-fibula x-ray 05/18/2025: No acute bony abnormality. 3. Chest CTA 05/20/2025: Study limited by bolus timing, yet without a large or central pulmonary embolism. Extensive pulmonary infiltrates are seen, including dense consolidation within the left lower lobe. - Followup chest chest CT in 4-8 weeks would be recommended to monitor for resolution. Mildly enlarged mediastinal lymph nodes are seen, which may be reactive. Additional findings: Mild coronary artery calcification Hepatomegaly Labs 05/18/25 11:18 05/20/25 06:45 Labs: Laboratory Results - last 24 hr 05/19/25 05/19/25 05/19/25 16:35 17:45 20:14 Sodium Potassium Chloride Carbon Dioxide BUN Creatinine Estimated GFR BUN/Creatinine Ratio Glucose POC Whole Bld Glucose 165 H 102 H Calcium Vancomycin Trough 12.9 05/20/25 05/20/25 05/20/25 00:07 06:45 08:08 Sodium 125 L Potassium 4.4 Chloride 94 L Carbon Dioxide 19 L BUN 13 Creatinine 0.78 Estimated GFR > 60 BUN/Creatinine Ratio 16.7 Glucose 197 H POC Whole Bld Glucose 161 H 188 H Calcium 8.7 Vancomycin Trough 05/20/25 11:46 Sodium Potassium Chloride Carbon Dioxide BUN Creatinine Estimated GFR BUN/Creatinine Ratio Glucose POC Whole Bld Glucose 235 H Calcium Vancomycin Trough [facility] Medical History Cervical stenosis of spinal canal Chronic pain syndrome EMA (generalized anxiety disorder) 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 Hyperlipidemia Hypertension Iron deficiency anemia Myocarditis OCD (obsessive compulsive disorder) Tobacco use disorder Varicose vein of leg Surgical History No pertinent past surgical history Social History marital status: unmarried,single household members: significant other lives independently: Yes occupational status: disabled alcohol intake: never substance use type: does not use Assessment & Plan Assessment & Plan narrative: 1. Cellulitis of left lower leg 5 days after cellulitis of the right hand; the hand improved with clindamycin however this other cellulitis of left leg appeared afterwards suggesting development of resistance * Vancomycin for MRSA coverage * Ciprofloxacin for Pseudomonas coverage - switch to Moxifloxacin 05/20 for aspiration coverage - see below * Multiple allergies to cephalosporins and penicillins * Much improved and essentially resolved. 2. Hyponatremia with infection and while taking ibuprofen, spironolactone and losartan which could all inhibits sodium retention * Hold losartan spironolactone and ibuprofen until sodium normalizes * Furosemide 40mg IV x 1 today * Daily monitoring 3. Bilateral pulmonary infiltrates, new onset 05/20 likely silent aspiration event * Probable aspiration related to cervical myelopathy, possibly related to chronic high dose opioid therapy * Transfer to ICU * Swallowing evaluation * Switch Ciprofloxacin to Moxifloxacin 400mg IV daily on 05/20 4. Acute hypoxemic respiratory failure due to presumed aspiration * Transfer to ICU * ABG, RT consult * BiPAP/CPAP, possible intubation if worsening or refractory 5. Dysphagia * Consult speech therapy * Wean chronic oxycodone dosing * Note he continues on chronic Suboxone therapy which may need to be adjusted Chronic Medical problems: * Chronic pain on chronic opiates * Tobacco use disorder * EMA (generalized anxiety disorder) * OCD (obsessive compulsive disorder) * 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 * Iron deficiency anemia * Chronic pain syndrome * Cervical stenosis of spinal canal * Hypertension * Hyperlipidemia * Varicose vein of leg * Myocarditis DVT prophylaxis: * Subcutaneous heparin Disposition: * Anticipate prolonged hospitalization given onset of acute aspiration and hypoxemic respiratory failure Code status: * Full code. Care was reviewed with his partner Silvestre Croft at bedside who is his Surrogate decision maker. Time-Based Coding :: 60 minutes spent of critical care time spent. Quality VTE Deep Vein Thrombosis/Pulmonary Embolism Present on Admission: No IH PROFEE Fashion Coordinator Document charge(s): No
--- NOTE | 2025-05-20 13:01 | CM.DANOTE ---
Initial DCP Assessment Note Pt is a 55 yo male, resident of [place], admitted for leg cellulitis. Patient is moving from rm 225-->227 today due to resp failure, suspected PNA. PCP: Ricadro Victoria Payer: Jerry Reviewed chart, Patient lives independently with partner Silvestre who is able to assist as needed with IADLS- meal prep, chores, driving/errands and med management as needed. Patient is disabled and suffers from severe spinal cord stenosis in the cervical spine as well as radiculopathy for which he is on Suboxone (started recently). PMH includes OCD and Generalized Anxiety Disorder. Patient plans to return home upon discharge, w/partner. Patient is likely not considered homebound; if HH is recommended by provider, discuss with patient and SO closer to DC. No barriers identified at this time to patient's safe discharge home w/SO to assist as needed; close outpatient f/u recommended. Social work team will plan to follow clinical course closely in case any DC needs or concerns arise. OLIVER Ramachandran Discharge Planning/Care Management CM Discharge Assessment Start: 05/18/25 14:21 Freq: Status: Active Protocol: Document 05/20/25 12:57 CASSIE (Rec: 05/20/25 13:01 CASSIE [id number]) Discharge Planning Assessment Assigned Discharge OLIVER [facility] Applications Analyst Provider Ricardo Victoria Insurance Comment Jerry DPOA/Assigned Silvestre Lang, partner Designee Name Contact Information P [phone] home P [phone] work Advance Directives? No History Provided By Patient,Family Member,Medical Record Expected Length of 4 Stay Prior Living House Arrangements Household Members significant other Type of Relies on Others transporation used prior to admit Independent with ADL Yes 's Is patient alert and Yes oriented? Needs Assistance Meal Prep,Home Chores / Shopping With Discharge Plan Home Transportation Partner Arrangement Referrals Initiated None needed
--- NOTE | 2025-05-20 13:11 | PC.NURSE ---
Patient is alert and oriented x4. His sats have been in the low 80s to about 88% on 3.5-5L of oxygen. Lung sounds are decreased. Patient down and back from CT to r/o PE earlier. Results given to patient by . Patient has been struggling to catch his breath this morning. Given 10mg of oxycodone and 10mg of po percocet for discomfort, patient takes 20mg of po percocet at home throughout the day, this is his home routine.new He is also on Suboxone and that has been given this morning. Patient just recently moved to ICU, where he can be monitored closely.
[2025-05-20 13:12] LABS: Base Excess VBG -1.3 mmol/L (0-4); HCO3 VBG 22 mmol/L (24-28); Oxygen Saturation VBG 87 % (70-75); PCO2 VBG 31.0 mmHg (45-50); PO2 VBG 50 mmHg (35-45); Total CO2 VBG 20 mmol/L (24-29); pH VBG 7.45 (7.33-7.43)
--- NOTE | 2025-05-20 13:35 | PC.NURSE ---
Addendum entered by Olivia Michelle RN 05/20/25 17:53: Pt intermittently on BiPAP. On 6L NC during dinner for approximately 45 mins, saturations 86%-94%. On BiPAP at 1750, tolerating. Oxygentation currently 90%, RT notified. Pt preferring to sit in chair d/t chronic back discomfort. Call light within reach. Care ongoing. Original Note: Transfer to room 227 in ICU. Pt A&Ox4, tachypneic, RR 30, o2 88% on 6L NC, HR elevated. Pt endorses SOB and back pain. provider at bedside. Pt oriented to room. Care ongoing.
--- NOTE | 2025-05-20 14:18 | PM.CN.EICU ---
History of Present Illness Consult details IF CAMERA ACTIVATED, patient seen via real-time interactive audiovisual communication: Camera activated Chief complaint: Left leg red and swollen Consent obtained for tele-corporate risk analyst care: Yes Patient Location: ICU Provider location (State): Other participants/roles: RN, RT Narrative: 55-year-old with H/O, morbid obesity, cervical myelopathy, on high-dose opioid therapy, chronic venous insufficiency, admitted 05/18 for LLE cellulites, improved after treated with antibiotic , today pt was found to be hypoxic requiring 6 L of N[place] , CTA chest showed diffuse bilateral infiltrates worse on the left concerning for aspiration PNA, pt was transferred to ICU for close monitoring. Acute hypoxemic resp failure, Aspiration PNA/ HAP Hyponatremai 2/2 hypervolemic VS SIADH Sepsis 2/2 PNA & LLE cellulites Morbid obesity Cervical myelopathy on high-dose opioid therapy chronic venous insufficiency High flow o2 for sat goal >92% Adding flagyl to vanc, switching Cipro to levaquin for tinight as pt is orderd Moxifloxacin but will be available tomorrow, follow up blood abd resp cx Additional IV lasix 40 mg x 1 Check 2 D echo Heparin for VTE ppx BMP Q12H PFSH Medical History Cervical stenosis of spinal canal Chronic pain syndrome EMA (generalized anxiety disorder) 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 Hyperlipidemia Hypertension Iron deficiency anemia Myocarditis OCD (obsessive compulsive disorder) Tobacco use disorder Varicose vein of leg Surgical History No pertinent past surgical history Social History marital status: unmarried,single household members: significant other lives independently: Yes occupational status: disabled Smoking Status: Current every day smoker alcohol intake: never substance use type: does not use Current Medications Current Medications Medications: Home Medications epinephrine 0.3 mg/0.3 mL injection, auto-injector (EpiPen 2-Nura) 0.3 mg (0.3 mL) IM SEE INSTRUCTIONS #2 ea 07/17/19 [Rx Confirmed 05/18/25] spironolactone 25 mg tablet 25 mg PO BID 12/28/23 [History Confirmed 05/18/25] furosemide 40 mg tablet See Rx Instructions .Route .COMPLEX PRN Swelling 06/10/24 [History Confirmed 05/18/25] ipratropium 0.5 mg-albuterol 3 mg (2.5 mg base)/3 mL nebulization soln 3 ml INH [id number] PRN Shortness Of Breath #120 doses 06/12/24 [Rx Confirmed 05/18/25] nicotine 14 mg/24 hr daily transdermal patch (Nicoderm CQ) 1 patch transdermal DAILY #14 ea 06/12/24 [Rx Confirmed 05/18/25] ondansetron 4 mg disintegrating tablet 4 mg PO Q8H PRN nausea and vomiting #14 tabs 01/24/25 [Rx Confirmed 05/18/25] albuterol sulfate 90 mcg/actuation aerosol inhaler See Rx Instructions .Route .COMPLEX #8.5 grams 01/31/25 [Rx Confirmed 05/18/25] ferrous gluconate 324 mg (37.5 mg iron) tablet 324 mg PO DAILY #90 tabs 01/31/25 [Rx Confirmed 05/18/25] finasteride 5 mg tablet 5 mg PO DAILY #90 tabs 01/31/25 [Rx Confirmed 05/18/25] losartan 100 mg tablet 100 mg PO DAILY #90 tabs 01/31/25 [Rx Confirmed 05/18/25] prednisone 10 mg tablet 10 mg PO BEDTIME #90 tabs 01/31/25 [Rx Confirmed 05/18/25] cyclobenzaprine 10 mg tablet 10 mg PO TID PRN muscle spasm #180 tabs 02/01/25 [Rx Confirmed 05/18/25] gabapentin 600 mg tablet 1,200 mg (2 x 600 mg) PO TID #240 tabs 02/27/25 [Rx Confirmed 05/18/25] lidocaine 5 % topical patch (Lidoderm) 1 patch topical DAILY #30 ea 02/27/25 [Rx Confirmed 05/18/25] metformin 500 mg tablet See Rx Instructions .Route .COMPLEX #360 tabs 03/07/25 [Rx Confirmed 05/18/25] diazepam 2 mg tablet 4 mg (2 x 2 mg) PO BEDTIME PRN sleep #60 tabs 04/10/25 [Rx Confirmed 05/18/25] tirzepatide 10 mg/0.5 mL subcutaneous pen injector (Mounjaro) 10 mg (0.5 mL) SUBCUT QWEEK #2 mL 04/26/25 [Rx Confirmed 05/18/25] amlodipine 10 mg tablet 10 mg PO DAILY #90 tabs 05/07/25 [Rx Confirmed 05/18/25] mometasone-formoterol HFA 200 mcg-5 mcg/actuation aerosol inhaler (Dulera) See Rx Instructions .Route .COMPLEX #13 grams 05/07/25 [Rx Confirmed 05/18/25] oxycodone-acetaminophen 10 mg-325 mg tablet (Percocet) See Rx Instructions PO .COMPLEX PRN pain #180 tabs 05/10/25 [Rx Confirmed 05/18/25] mupirocin 2 % topical ointment 1 applic topical TID #15 grams 05/14/25 [Rx Confirmed 05/18/25] nicotine (polacrilex) 2 mg buccal mini lozenge 2 mg buccal Q2-4H PRN nicotine cravings #81 ea 05/16/25 [Rx Confirmed 05/18/25] nicotine 14 mg/24 hr daily transdermal patch 1 patch transdermal DAILY #28 ea 05/16/25 [Rx Confirmed 05/18/25] trazodone 150 mg tablet 150 mg PO BEDTIME PRN insomnia #30 tabs 05/16/25 [Rx Confirmed 05/18/25] beclomethasone dipropionate 80 mcg/actuation HFA breath activated aerosol (Qvar RediHaler) See Rx Instructions .Route .COMPLEX 05/18/25 [History Confirmed 05/18/25] buprenorphine 2 mg-naloxone 0.5 mg sublingual film (Suboxone) See Rx Instructions buccal .COMPLEX #30 ea 05/18/25 [Rx Confirmed 05/18/25] tiotropium bromide 18 mcg capsule with inhalation device (Spiriva with HandiHaler) See Rx Instructions .Route .COMPLEX 05/18/25 [History Confirmed 05/18/25] venlafaxine 75 mg tablet,extended release 24 hr 25 mg PO DAILY 05/18/25 [History Confirmed 05/18/25] Visit Medications (administered) Generic Name Dose Route Start Last Admin Trade Name Freq PRN Reason Stop Dose Admin Acetaminophen 650 mg 05/19/25 20:22 05/20/25 00:08 Acetaminophen 325 Mg Tablet PO 650 mg Q4H PRN Administration Fever/Mild Pain (1-3) Albuterol/Ipratropium 3 ml 05/18/25 19:00 05/20/25 14:08 Albuterol/Ipratropium 3 Ml Ampul INH 3 ml [id number] BC Administration Amlodipine Besylate 10 mg 05/19/25 09:00 05/20/25 08:27 Amlodipine 5 Mg Tablet PO 10 mg DAILY BC Administration Budesonide 0.5 mg 05/18/25 20:00 05/20/25 08:25 Budesonide 0.5 Mg/2 Ml Neb INH 0.5 mg RTBID BC Administration Cyclobenzaprine HCl 10 mg 05/18/25 16:56 05/19/25 15:49 Cyclobenzaprine 10 Mg Tablet PO 10 mg TID PRN Administration Muscle Spasm Diazepam 4 mg 05/18/25 16:56 05/20/25 00:08 Diazepam 2 Mg Tablet PO 4 mg BEDTIME PRN Administration Sleep Ferrous Sulfate 325 mg 05/19/25 09:00 05/20/25 08:27 Ferrous Sulfate 325 Mg Tablet PO 325 mg DAILY BC Administration Finasteride 5 mg 05/19/25 09:00 05/20/25 08:27 Finasteride 5 Mg Tablet PO 5 mg DAILY BC Administration Gabapentin 1,200 mg 05/18/25 17:00 05/20/25 08:27 Gabapentin 600 Mg Tablet PO 1,200 mg TID BC Administration Heparin Sodium (Porcine) 5,000 unit 05/18/25 21:00 05/20/25 08:26 Heparin 5,000 Unit/Ml Vial SUBCUT 5,000 unit BID BC Administration Hydralazine HCl 25 mg 05/19/25 08:00 05/20/25 08:27 Hydralazine 25 Mg Tablet PO 25 mg BIDWM BC Administration Ciprofloxacin 400 mg in 200 mls @ 200 mls/hr 05/18/25 17:01 05/20/25 06:08 Cipro IV Infused Q12H BC Infusion Sodium Chloride 1,000 mls @ 84 mls/hr 05/18/25 17:30 05/20/25 12:01 Normal Saline 0.9% IV 84 mls/hr CONT BC Administration Vancomycin HCl 1,250 mg in 250 mls @ 250 mls/hr 05/18/25 18:00 05/20/25 13:32 Vancomycin IV Infused Q8H BC Infusion Insulin Human Lispro 0 unit 05/18/25 21:00 05/20/25 11:57 Insulin Lispro 100 Unit/Ml 3ml Vial SUBCUT 2 unit ACHS BC Administration Protocol Lidocaine 1 each 05/19/25 09:00 05/20/25 08:31 Lidocaine 5% Patch TOP Not Given DAILY BC Nicotine 14 mg 05/19/25 03:59 05/20/25 08:31 Nicotine 14 Patch TOP 14 mg DAILY BC Administration Buprenorphine- 1 mg 05/18/25 21:00 05/20/25 09:38 Naloxone [Suboxone] SL 1 mg 2-0.5 Mg Film TID BC Administration Oxycodone HCl 10 mg 05/18/25 17:40 05/20/25 08:26 Oxycodone Ir 10 Mg Tablet PO 10 mg Q4H PRN Administration Pain, Moderate (4-6) Prednisone 10 mg 05/18/25 21:00 05/19/25 20:24 Prednisone 5 Mg Tablet PO 10 mg BEDTIME BC Administration Exam Vital Signs (past 8 hours): - 05/20/25 08:25 05/20/25 08:56 05/20/25 11:56 Temperature 98.9 F Pulse Rate 102 H 107 H 98 H Respiratory Rate 16 25 H 20 Blood Pressure 127/66 Pulse Oximetry 99 97 91 Oxygen Delivery Method Nasal Cannula Nasal Cannula Oxygen Flow Rate 3.5 3.5 05/20/25 12:26 05/20/25 13:59 Temperature 102.2 F H Pulse Rate 107 H Respiratory Rate 18 Blood Pressure 140/65 Pulse Oximetry 88 L Oxygen Delivery Method Oxygen Flow Rate Fraction of Inspired Oxygen 3 SaO2/FiO2 Ratio 3066 Oxygen Delivery Method Nasal Cannula Oxygen Flow Rate 3.5 Objective Labs 05/20/25 14:18 05/20/25 14:18 Labs: Laboratory Results - last 24 hr 05/19/25 05/19/25 05/19/25 16:35 17:45 20:14 VBG pH VBG pCO2 VBG pO2 VBG HCO3 VBG Total CO2 VBG O2 Saturation VBG Base Excess Sodium Potassium Chloride Carbon Dioxide BUN Creatinine Estimated GFR BUN/Creatinine Ratio Glucose POC Whole Bld Glucose 165 H 102 H Calcium Vancomycin Trough 12.9 05/20/25 05/20/25 05/20/25 00:07 06:45 08:08 VBG pH VBG pCO2 VBG pO2 VBG HCO3 VBG Total CO2 VBG O2 Saturation VBG Base Excess Sodium 125 L Potassium 4.4 Chloride 94 L Carbon Dioxide 19 L BUN 13 Creatinine 0.78 Estimated GFR > 60 BUN/Creatinine Ratio 16.7 Glucose 197 H POC Whole Bld Glucose 161 H 188 H Calcium 8.7 Vancomycin Trough 05/20/25 05/20/25 11:46 13:08 VBG pH 7.45 H VBG pCO2 31.0 L VBG pO2 50 H VBG HCO3 22 L VBG Total CO2 20 L VBG O2 Saturation 87 H VBG Base Excess -1.3 L Sodium Potassium Chloride Carbon Dioxide BUN Creatinine Estimated GFR BUN/Creatinine Ratio Glucose POC Whole Bld Glucose 235 H Calcium Vancomycin Trough Assessment & Plan Time-Based Coding :: [TOTAL MINUTES] spent with patient and on the chart (including review of chart, obtaining history, exam, reviewing outside data, placing orders, documenting exam and treatment plan, and counseling patient) on [DATE].
[2025-05-20 14:30] LABS: Add Manual Diff / Slide Review NO; Hematocrit 35.2 % (41-53); Hemoglobin 11.8 g/dL (13.5-17.5); Lymphocytes Absolute Auto 700 /uL (1100-4500); Mean Corpuscular HGB Conc 33.4 % (30-36); Mean Corpuscular Hemoglobin 26.5 PG (26-34); Mean Corpuscular Volume 79.1 fL (80-100); Platelet Count 182 X10^3/uL (150-400)
[2025-05-20 14:34] LABS: Blood Urea Nitrogen 11 mg/dL (9-20); Calcium 7.5 mg/dL (8.4-10.2); Carbon Dioxide 19 mmol/L (22-32); Chloride 97 mmol/L (98-107); Estimated Glomerular Filt Rate > 60 mL/min (>60); Glucose 178 mg/dL (70-99); HEMOLYSIS < 15 (0-50); Potassium 3.1 mmol/L (3.4-5.1); Sodium 126 mmol/L (137-145)
--- NOTE | 2025-05-20 14:42 | DI.ECHO.S_ITS ---
:Name: MARISELA MONSALVE Study Date: 05/21/2025 Height: 70 in : :Hospital Reading Location: Weight: 263 lb : : Gender: Male BSA: 2.3 m2 : :: 1970 Age: 55 yrs BP: 142/67 mmHg: :Reason For Study: HYPOXIA : :Ordering Physician: LYNDSEY FORRESTER Performed By: Dean Peterson : :Referring: [email or web address] : + + Interpretation Summary The study quality was technically difficult. The patient was in sinus tachycardia with heart rates between 102-104 bpm during the exam. The ejection fraction is estimated to be 45-50%. Grade I diastolic dysfunction with normal left atrial pressure. The right ventricle is mildly dilated. The right ventricular systolic function is normal. Pulmonary artery pressures cannot be estimated because of the lack of a measurable TR jet velocity but the IVC suggests a CVP of around 8 mmHg. Compared to the prior study 02/24/2017, the left ventricle appears less dynamic. Procedure: A two-dimensional transthoracic echocardiogram with color flow and Doppler was performed. A contrast injection of Definity was performed to improve assessment of LV function. The study quality was technically difficult. Comparison is made with the echocardiogram of 02/24/2017. The patient was in sinus tachycardia with heart rates between 102-104 bpm during the exam. Left Ventricle: The left ventricle is normal in size. There is normal left ventricular wall thickness. There is no ventricular septal defect visualized. The ejection fraction is estimated to be 45-50%. There is mild global hypokinesis of the left ventricle. Grade I diastolic dysfunction with normal left atrial pressure. Right Ventricle: The right ventricle is mildly dilated. The right ventricular systolic function is normal. Atria: The left atrial size is normal. Right atrial size is normal. The interatrial septum is not well visualized. Mitral Valve: The mitral valve leaflets appear mildly thickened. There is no mitral regurgitation noted. Aortic Valve: The aortic valve is mildly calcified. The aortic valve opens well. There is no aortic valve stenosis. No aortic regurgitation is present. Tricuspid Valve: The tricuspid valve leaflets are thin and pliable. No tricuspid regurgitation. Pulmonary artery pressures cannot be estimated because of the lack of a measurable TR jet velocity but the IVC suggests a CVP of around 8 mmHg. Pulmonic Valve: The pulmonic valve leaflets are thin and pliable; valve motion is normal. There is no pulmonic valvular regurgitation. Great Vessels: The aortic root is normal size. The dimensions of the ascending aorta are normal. The pulmonary artery is normal size. The IVC is dilated (diameter is greater than 2.1 cm) yet it collapses greater than 50% with a sniff. This suggests a right atrial pressure of 8 mm Hg. Pericardium/ Pleura There is no pericardial effusion. MMode/2D Measurements & Calculations LVIDd: 5.7 cm LVOT diam: 2.4 cm LVIDs: 4.5 cm Ao root diam: 4.0 cm FS: 21.4 % asc Aorta Diam: 3.5 cm EPSS: 0.83 cm IVSd: 0.94 cm LVPWd: 0.75 cm LV aguilera. diameter/BSA (cm/m^2): 2.4 LV sys. diameter/BSA (cm/m^2): 1.9 LA A2 area: 22.6 cm2 RA long axis: 5.4 cm LA A4 area: 18.2 cm2 RA area: 17.0 cm2 LA length (vol): 5.2 cm RA vol: 45.7 ml LA vol: 66.7 ml RA : 19.5 ml/m2 LA vol index: 28.5 ml/m2 IVC diam: 2.4 cm RVD1 (basal): 4.5 cm RVD2 (mid): 3.6 cm TAPSE: 3.4 cm Doppler Measurements & Calculations Ao V2 max: 203.9 cm/sec LVOT Max Handy: 132.3 cm/sec Ao V2 mean: 155.3 cm/sec LV V1 max P.0 mmHg Ao max P.6 mmHg LV V1 VTI: 35.0 cm Ao mean P.4 mmHg LINUS(I,D): 4.0 cm2 Ao V2 VTI: 37.8 cm LINUS(V,D): 2.8 cm2 sev ratio: 0.92 LINUS indexed to BSA (cm^2/m^2): 1.7 MV E max handy: 105.6 cm/sec PA V2 max: 160.8 cm/sec MV A max handy: 113.7 cm/sec PA V2 mean: 123.3 cm/sec MV E/A: 0.93 PA mean P.7 mmHg Med Peak E' Handy: 11.8 cm/sec PA pr(Accel): 37.9 mmHg E/E' med: 8.9 Lat Peak E' Handy: 12.2 cm/sec E/E' lat: 8.7 E/e' average: 8.8 MV dec time: 0.18 sec SV(LVOT): 152.0 ml Reading Physician:09:43 AM
[2025-05-20] MEDS: metroNIDAZOLE 500 MG/100 ML PIGGYBACK 100 MG IV ×2 (14:58→22:53)
[2025-05-20 15:03] LABS: Lactate (Lactic Acid) 1.1 mmol/L (0.7-2.1)
[2025-05-20] MEDS: POTASSIUM CHLORIDE 20 MEQ/15 ML UDC 40 MEQ PO (15:26)
[2025-05-20] MEDS: CYCLOBENZAPRINE 10 MG TABLET PO (20:16)
[2025-05-21] VITALS (58 sets, daily range): BP systolic 109–154; BP diastolic 59–92; PULSE 93–128; RESP 10–31; TEMP 31–37.2; O2SAT 77–100
[2025-05-21] MEDS: VANCOMYCIN 1,250 MG/250 ML PIGGYBACK 250 MG IV ×3 (01:13→17:38)
[2025-05-21] MEDS: IPRATROPIUM 0.5 MG/2.5 ML NEB INH (03:24)
--- NOTE | 2025-05-21 05:05 | RT ---
Patient tolerated BIPAP all shift. FIO2 increased from 35% to 55% after SPO2 probe moved from ear to finger and SPO2 dropped to 85%. SPO2 verified on 2nd site and FIOw subsequently increased. All other settings the same. ST back up rate of 10 breathing 22-25, IPAP of 14, EPAP of 10 with tidal volumes of 550-950 with good leak. Heat turned off at first check of shift due to patient complaining of being to warm and wanting to remove mask. Tolerated much better with heat off. BS with fine crackels and diminished bases at start of shift. Increasing to rhonchi to bases and then just course. Duoneb given in line via aerogen Q4W/A and Albuterol given at 0320.
[2025-05-21 05:31] LABS: Add Manual Diff / Slide Review NO; Hematocrit 36.1 % (41-53); Hemoglobin 11.9 g/dL (13.5-17.5); Lymphocytes Absolute Auto 700 /uL (1100-4500); Mean Corpuscular HGB Conc 33.0 % (30-36); Mean Corpuscular Hemoglobin 26.4 PG (26-34); Mean Corpuscular Volume 79.9 fL (80-100); Platelet Count 170 X10^3/uL (150-400)
[2025-05-21 05:43] LABS: Alanine Aminotransferase 22 IU/L (<50); Albumin 3.7 g/dL (3.5-5.0); Albumin Globulin Ratio 1.2 (1.0-2.8); Alkaline Phosphatase 72 U/L (38-126); Blood Urea Nitrogen 16 mg/dL (9-20); Calcium 8.3 mg/dL (8.4-10.2); Carbon Dioxide 18 mmol/L (22-32); Chloride 96 mmol/L (98-107); Estimated Glomerular Filt Rate > 60 mL/min (>60); Globulin 3.2 g/dL (1.7-4.1); Glucose 183 mg/dL (70-99); HEMOLYSIS 31 (0-50); Potassium 4.0 mmol/L (3.4-5.1); Sodium 126 mmol/L (137-145); Total Protein 6.9 g/dL (6.3-8.2)
[2025-05-21] MEDS: CYCLOBENZAPRINE 10 MG TABLET PO ×3 (05:45→20:21)
--- NOTE | 2025-05-21 06:52 | PC.NURSE ---
pt very restless and anxious at start of shift, c/o pain/spasms in back, prn meds given with effect, BIPAP on and pt tolerated well with trazadone given at HS, O2 sats 90-94%, pt desats to low 80s off bipap with oximask at 10L, pt requested to sleep in recliner for comfort, voiding large amts of clear corina urine in urinal while standing with SBY assist, meds and labs as ordered, call andre within reach, care on going
[2025-05-21] MEDS: GABAPENTIN 600 MG TABLET 1200 MG PO ×3 (08:03→20:21)
[2025-05-21] MEDS: metroNIDAZOLE 500 MG/100 ML PIGGYBACK 100 MG IV (08:03)
[2025-05-21] MEDS: HEPARIN 5,000 UNIT/ML VIAL 5000 UNIT SUBCUT ×2 (08:03→20:19)
[2025-05-21] MEDS: FERROUS SULFATE 325 MG TABLET PO (08:03)
--- NOTE | 2025-05-21 08:03 | P.PN_ITS ---
Subjective Subjective Interval history: Hospital course: 05/19: Patient is feeling better tolerating diet sodium improved to 128 leg has less pain 05/20: The patient is noted to be hypoxic this morning, with oxygen saturations of 85% on 6 L nasal cannula oxygen. He denies any cough, shortness breath or aspiration events but does note that he feels weak and lightheaded today. Feels his cellulitis has resolved. His sodium was 125. He had over 5 L of fluid intake yesterday. He was administered 40 of IV furosemide and a CT angiogram obtained which showed diffuse bilateral infiltrates worse on the left. He has a history of cervical myelopathy and has been determined to be a nonsurgical candidate. He denies dysphagia symptoms but states he has trouble swallowing pills sometimes. He continues on high-dose opioid therapy. He is seen with his partner at bedside. They are unaware of excessive sedation or aspiration events. S: He was on BiPAP overnight, it was on high-flow this morning. He was relatively comfortable. He was still coughing, primarily unproductive. His leg redness has improved. O: NAD, alert and oriented. Fluent speech. Lungs are clear, normal rate and effort. Heart is regular, no murmur gallop or rub. Abdomen is soft, non distended. Extremities are free of edema. A/P: 1. Cellulitis of left lower leg 5 days after cellulitis of the right hand; the hand improved with clindamycin however this other cellulitis of left leg appeared afterwards. * Vancomycin for MRSA coverage * Ciprofloxacin for Pseudomonas coverage - switch to Levoquin (moxy not on formulary or obtainable). * Multiple allergies to cephalosporins and penicillins (reports of nausea) 2. Hyponatremia with infection and while taking ibuprofen, spironolactone and losartan which could all inhibits sodium retention * Hold losartan spironolactone and ibuprofen until sodium normalizes (remains at 126). * Furosemide 40mg IV 05/20. * Daily monitoring, check Ur Na. 3. Bilateral pulmonary infiltrates, new onset 05/20 likely silent aspiration event * Probable aspiration related to cervical myelopathy, possibly related to chronic high dose opioid therapy * Transfer to ICU * [place] [place] * Switch Ciprofloxacin to Levoquin 750 IV QD. 4. Acute hypoxemic respiratory failure due to presumed aspiration * Transfer to ICU * ABG, RT consult * BiPAP/CPAP, possible intubation if worsening or refractory. High flow for periods of time as requested. 5. Dysphagia * Consult speech therapy * Wean chronic oxycodone dosing * Note he continues on chronic Suboxone therapy which may need to be adjusted Chronic Medical problems: * Chronic pain on chronic opiates * Tobacco use disorder * EMA (generalized anxiety disorder) * OCD (obsessive compulsive disorder) * 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 * Iron deficiency anemia * Chronic pain syndrome * Cervical stenosis of spinal canal * Hypertension * Hyperlipidemia * Varicose vein of leg * Myocarditis PLAN: -continue IV antibiotics. -check urine sodium. -elevate leg. -BiPAP as needed, wean FiO2 as able. DVT prophylaxis: * Subcutaneous heparin Disposition: * Anticipate prolonged hospitalization given onset of acute aspiration and hypoxemic respiratory failure Code status: * Full code. Care was reviewed with his partner Silvestre Croft at bedside who is his Surrogate decision maker. Exam Vital Signs (past 8 hours): - 05/21/25 00:30 05/21/25 01:00 05/21/25 01:30 Temperature Pulse Rate 104 H 101 H 108 H Respiratory Rate 22 22 25 H Blood Pressure Pulse Oximetry 93 94 92 Oxygen Delivery Method Fraction of Inspired Oxygen 05/21/25 02:00 05/21/25 02:01 05/21/25 02:01 Temperature Pulse Rate 103 H 104 H Respiratory Rate 23 21 Blood Pressure 154/70 H Pulse Oximetry 92 91 Oxygen Delivery Method Fraction of Inspired Oxygen 05/21/25 02:30 05/21/25 03:00 05/21/25 03:20 Temperature Pulse Rate 103 H 108 H Respiratory Rate 22 24 Blood Pressure 154/70 H Pulse Oximetry 94 86 L Oxygen Delivery Method Fraction of Inspired Oxygen 55 05/21/25 03:30 05/21/25 04:00 05/21/25 04:00 Temperature 98.6 F Pulse Rate 98 H Respiratory Rate 19 Blood Pressure 146/66 H Pulse Oximetry 93 Oxygen Delivery Method BiPAP Fraction of Inspired Oxygen 05/21/25 04:00 05/21/25 04:30 05/21/25 05:00 Temperature Pulse Rate 100 H 97 H 94 H Respiratory Rate 19 21 20 Blood Pressure Pulse Oximetry 91 95 89 L Oxygen Delivery Method Fraction of Inspired Oxygen 05/21/25 05:30 05/21/25 06:00 05/21/25 06:00 Temperature Pulse Rate 93 H 100 H Respiratory Rate 21 25 H Blood Pressure 142/67 H Pulse Oximetry 92 79 L Oxygen Delivery Method Fraction of Inspired Oxygen 05/21/25 06:30 Temperature Pulse Rate 94 H Respiratory Rate 23 Blood Pressure Pulse Oximetry 100 Oxygen Delivery Method Fraction of Inspired Oxygen Fraction of Inspired Oxygen 55 SaO2/FiO2 Ratio 268 Oxygen Delivery Method BiPAP Oxygen Flow Rate 6 Objective Labs 05/21/25 04:44 05/21/25 04:44 Labs: Laboratory Results - last 24 hr 05/20/25 05/20/25 05/20/25 08:08 11:46 13:08 WBC RBC Hgb Hct MCV MCH MCHC RDW Plt Count Neut % (Auto) Lymph % (Auto) [place] % (Auto) Eos % (Auto) Baso % (Auto) Neut # (Auto) Lymph # (Auto) [place] # (Auto) Eos # (Auto) Baso # (Auto) VBG pH 7.45 H VBG pCO2 31.0 L VBG pO2 50 H VBG HCO3 22 L VBG Total CO2 20 L VBG O2 Saturation 87 H VBG Base Excess -1.3 L Sodium Potassium Chloride Carbon Dioxide BUN Creatinine Estimated GFR BUN/Creatinine Ratio Glucose POC Whole Bld Glucose 188 H 235 H Lactate Calcium Total Bilirubin AST ALT Alkaline Phosphatase Total Protein Albumin Globulin Albumin/Globulin Ratio 05/20/25 05/20/25 05/20/25 14:18 14:30 16:55 WBC 12.5 H RBC 4.45 L Hgb 11.8 L Hct 35.2 L MCV 79.1 L MCH 26.5 MCHC 33.4 RDW 16.6 H Plt Count 182 Neut % (Auto) 89.3 H Lymph % (Auto) 5.8 L [place] % (Auto) 4.4 Eos % (Auto) 0.1 L Baso % (Auto) 0.4 Neut # (Auto) 02713 H Lymph # (Auto) 700 L [place] # (Auto) 600 Eos # (Auto) 0 Baso # (Auto) 0 VBG pH VBG pCO2 VBG pO2 VBG HCO3 VBG Total CO2 VBG O2 Saturation VBG Base Excess Sodium 126 L Potassium 3.1 L D Chloride 97 L Carbon Dioxide 19 L BUN 11 Creatinine 0.77 Estimated GFR > 60 BUN/Creatinine Ratio 14.3 Glucose 178 H POC Whole Bld Glucose 213 H Lactate 1.1 Calcium 7.5 L Total Bilirubin AST ALT Alkaline Phosphatase Total Protein Albumin Globulin Albumin/Globulin Ratio 05/20/25 05/21/25 05/21/25 20:05 04:44 07:57 WBC 12.6 H RBC 4.52 Hgb 11.9 L Hct 36.1 L MCV 79.9 L MCH 26.4 MCHC 33.0 RDW 16.3 H Plt Count 170 Neut % (Auto) 87.7 H Lymph % (Auto) 5.4 L [place] % (Auto) 6.7 Eos % (Auto) 0.0 L Baso % (Auto) 0.2 Neut # (Auto) 05806 H Lymph # (Auto) 700 L [place] # (Auto) 800 Eos # (Auto) 0 Baso # (Auto) 0 VBG pH VBG pCO2 VBG pO2 VBG HCO3 VBG Total CO2 VBG O2 Saturation VBG Base Excess Sodium 126 L Potassium 4.0 Chloride 96 L Carbon Dioxide 18 L BUN 16 Creatinine 0.99 Estimated GFR > 60 BUN/Creatinine Ratio 16.2 Glucose 183 H POC Whole Bld Glucose 241 H 193 H Lactate Calcium 8.3 L Total Bilirubin 0.5 AST 44 ALT 22 Alkaline Phosphatase 72 Total Protein 6.9 Albumin 3.7 Globulin 3.2 Albumin/Globulin Ratio 1.2 PFSH Medical History Cervical stenosis of spinal canal Chronic pain syndrome EMA (generalized anxiety disorder) 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 Hyperlipidemia Hypertension Iron deficiency anemia Myocarditis OCD (obsessive compulsive disorder) Tobacco use disorder Varicose vein of leg Surgical History No pertinent past surgical history Social History marital status: unmarried,single household members: significant other lives independently: Yes occupational status: disabled Smoking Status: Current every day smoker alcohol intake: never substance use type: does not use Assessment & Plan Time-Based Coding :: [TOTAL MINUTES] spent with patient and on the chart (including review of chart, obtaining history, exam, reviewing outside data, placing orders, documenting exam and treatment plan, and counseling patient) on [DATE]. Quality VTE Deep Vein Thrombosis/Pulmonary Embolism Present on Admission: No
[2025-05-21] MEDS: INSULIN LISPRO 100 UNIT/ML 3ML VIAL SUBCUT ×4 (08:04→20:22)
[2025-05-21] MEDS: NICOTINE 14 PATCH 14 MG TOP (08:21)
[2025-05-21] MEDS: BUDESONIDE 0.5 MG/2 ML NEB INH ×2 (08:55→18:16)
[2025-05-21] MEDS: ALBUTEROL/IPRATROPIUM 3 ML AMPUL INH ×5 (08:55→22:25)
--- NOTE | 2025-05-21 09:24 | PM.PN.EICU ---
Subjective Subjective IF CAMERA ACTIVATED, patient seen via real-time interactive audiovisual communication: Camera activated Date Patient Seen: 05/21/25 Consent obtained for tele-pad machine offbearer care: Yes Patient Location: ICU Provider location (State): [place] Other participants/roles: RN, patient Interval history: Following up on this 55-year-old M with H/O, morbid obesity, cervical myelopathy, on high-dose opioid therapy, chronic venous insufficiency, admitted 05/18 for LLE cellulitis, improved after treated with antibiotic , subsequently developed resp failure requiring 6 L of [place] - escalating to bipap yesterday-, CTA chest showed diffuse bilateral infiltrates worse on the left concerning for aspiration PNA, pt was transferred to ICU for close monitoring. Today is off bipap, on NC, but still satting in high 80's is awake/alert and appears to be ventilating well no conversational dyspnea NAD Current Medications Current Medications Medications: Home Medications epinephrine 0.3 mg/0.3 mL injection, auto-injector (EpiPen 2-Nura) 0.3 mg (0.3 mL) IM SEE INSTRUCTIONS #2 ea 07/17/19 [Rx Confirmed 05/18/25] spironolactone 25 mg tablet 25 mg PO BID 12/28/23 [History Confirmed 05/18/25] furosemide 40 mg tablet See Rx Instructions .Route .COMPLEX PRN Swelling 06/10/24 [History Confirmed 05/18/25] ipratropium 0.5 mg-albuterol 3 mg (2.5 mg base)/3 mL nebulization soln 3 ml INH [id number] PRN Shortness Of Breath #120 doses 06/12/24 [Rx Confirmed 05/18/25] nicotine 14 mg/24 hr daily transdermal patch (Nicoderm CQ) 1 patch transdermal DAILY #14 ea 06/12/24 [Rx Confirmed 05/18/25] ondansetron 4 mg disintegrating tablet 4 mg PO Q8H PRN nausea and vomiting #14 tabs 01/24/25 [Rx Confirmed 05/18/25] albuterol sulfate 90 mcg/actuation aerosol inhaler See Rx Instructions .Route .COMPLEX #8.5 grams 01/31/25 [Rx Confirmed 05/18/25] ferrous gluconate 324 mg (37.5 mg iron) tablet 324 mg PO DAILY #90 tabs 01/31/25 [Rx Confirmed 05/18/25] finasteride 5 mg tablet 5 mg PO DAILY #90 tabs 01/31/25 [Rx Confirmed 05/18/25] losartan 100 mg tablet 100 mg PO DAILY #90 tabs 01/31/25 [Rx Confirmed 05/18/25] prednisone 10 mg tablet 10 mg PO BEDTIME #90 tabs 01/31/25 [Rx Confirmed 05/18/25] cyclobenzaprine 10 mg tablet 10 mg PO TID PRN muscle spasm #180 tabs 02/01/25 [Rx Confirmed 05/18/25] gabapentin 600 mg tablet 1,200 mg (2 x 600 mg) PO TID #240 tabs 02/27/25 [Rx Confirmed 05/18/25] lidocaine 5 % topical patch (Lidoderm) 1 patch topical DAILY #30 ea 02/27/25 [Rx Confirmed 05/18/25] metformin 500 mg tablet See Rx Instructions .Route .COMPLEX #360 tabs 03/07/25 [Rx Confirmed 05/18/25] diazepam 2 mg tablet 4 mg (2 x 2 mg) PO BEDTIME PRN sleep #60 tabs 04/10/25 [Rx Confirmed 05/18/25] tirzepatide 10 mg/0.5 mL subcutaneous pen injector (Mounjaro) 10 mg (0.5 mL) SUBCUT QWEEK #2 mL 04/26/25 [Rx Confirmed 05/18/25] amlodipine 10 mg tablet 10 mg PO DAILY #90 tabs 05/07/25 [Rx Confirmed 05/18/25] mometasone-formoterol HFA 200 mcg-5 mcg/actuation aerosol inhaler (Dulera) See Rx Instructions .Route .COMPLEX #13 grams 05/07/25 [Rx Confirmed 05/18/25] oxycodone-acetaminophen 10 mg-325 mg tablet (Percocet) See Rx Instructions PO .COMPLEX PRN pain #180 tabs 05/10/25 [Rx Confirmed 05/18/25] mupirocin 2 % topical ointment 1 applic topical TID #15 grams 05/14/25 [Rx Confirmed 05/18/25] nicotine (polacrilex) 2 mg buccal mini lozenge 2 mg buccal Q2-4H PRN nicotine cravings #81 ea 05/16/25 [Rx Confirmed 05/18/25] nicotine 14 mg/24 hr daily transdermal patch 1 patch transdermal DAILY #28 ea 05/16/25 [Rx Confirmed 05/18/25] trazodone 150 mg tablet 150 mg PO BEDTIME PRN insomnia #30 tabs 05/16/25 [Rx Confirmed 05/18/25] beclomethasone dipropionate 80 mcg/actuation HFA breath activated aerosol (Qvar RediHaler) See Rx Instructions .Route .COMPLEX 05/18/25 [History Confirmed 05/18/25] buprenorphine 2 mg-naloxone 0.5 mg sublingual film (Suboxone) See Rx Instructions buccal .COMPLEX #30 ea 05/18/25 [Rx Confirmed 05/18/25] tiotropium bromide 18 mcg capsule with inhalation device (Spiriva with HandiHaler) See Rx Instructions .Route .COMPLEX 05/18/25 [History Confirmed 05/18/25] venlafaxine 75 mg tablet,extended release 24 hr 25 mg PO DAILY 05/18/25 [History Confirmed 05/18/25] Visit Medications (administered) Generic Name Dose Route Start Last Admin Trade Name Freq PRN Reason Stop Dose Admin Acetaminophen 650 mg 05/19/25 20:22 05/20/25 00:08 Acetaminophen 325 Mg Tablet PO 650 mg Q4H PRN Administration Fever/Mild Pain (1-3) Albuterol/Ipratropium 3 ml 05/18/25 19:00 05/21/25 08:55 Albuterol/Ipratropium 3 Ml Ampul INH 3 ml [id number] BC Administration Amlodipine Besylate 10 mg 05/19/25 09:00 05/21/25 08:03 Amlodipine 5 Mg Tablet PO 10 mg DAILY BC Administration Budesonide 0.5 mg 05/18/25 20:00 05/21/25 08:55 Budesonide 0.5 Mg/2 Ml Neb INH 0.5 mg RTBID BC Administration Cyclobenzaprine HCl 10 mg 05/18/25 16:56 05/21/25 05:45 Cyclobenzaprine 10 Mg Tablet PO 10 mg TID PRN Administration Muscle Spasm Diazepam 4 mg 05/18/25 16:56 05/21/25 01:13 Diazepam 2 Mg Tablet PO 4 mg BEDTIME PRN Administration Sleep Ferrous Sulfate 325 mg 05/19/25 09:00 05/21/25 08:03 Ferrous Sulfate 325 Mg Tablet PO 325 mg DAILY BC Administration Finasteride 5 mg 05/19/25 09:00 05/20/25 08:27 Finasteride 5 Mg Tablet PO 5 mg DAILY BC Administration Gabapentin 1,200 mg 05/18/25 17:00 05/21/25 08:03 Gabapentin 600 Mg Tablet PO 1,200 mg TID BC Administration Heparin Sodium (Porcine) 5,000 unit 05/18/25 21:00 05/21/25 08:03 Heparin 5,000 Unit/Ml Vial SUBCUT 5,000 unit BID BC Administration Hydralazine HCl 25 mg 05/19/25 08:00 05/21/25 08:22 Hydralazine 25 Mg Tablet PO Not Given BIDWM BC Vancomycin HCl 1,250 mg in 250 mls @ 250 mls/hr 05/18/25 18:00 05/21/25 02:13 Vancomycin IV Infused Q8H BC Infusion Metronidazole 500 mg in 100 mls @ 100 mls/hr 05/20/25 15:00 05/21/25 08:03 Flagyl IV 100 mls/hr Q8H [facility] Administration Insulin Human Lispro 0 unit 05/18/25 21:00 05/21/25 08:04 Insulin Lispro 100 Unit/Ml 3ml Vial SUBCUT 2 unit ACHS [facility] Administration Protocol Ipratropium [place] 0.5 mg 05/18/25 17:14 05/21/25 03:24 Ipratropium 0.5 Mg/2.5 Ml Neb INH 0.5 mg Q2H PRN Administration Shortness Of Breath Lidocaine 1 each 05/19/25 09:00 05/21/25 08:24 Lidocaine 5% Patch TOP Not Given DAILY BC Nicotine 14 mg 05/19/25 03:59 05/21/25 08:21 Nicotine 14 Patch TOP 14 mg DAILY BC Administration Buprenorphine- 1 mg 05/18/25 21:00 05/20/25 19:50 Naloxone [Suboxone] SL 1 mg 2-0.5 Mg Film TID [facility] Administration Oxycodone HCl 10 mg 05/18/25 17:40 05/21/25 05:44 Oxycodone Ir 10 Mg Tablet PO 10 mg Q4H PRN Administration Pain, Moderate (4-6) Pantoprazole Sodium 20 mg 05/20/25 21:00 05/20/25 21:[address] 20 Mg Tablet PO Not Given 2100 [facility] Prednisone 10 mg 05/18/25 21:00 05/20/25 19:50 Prednisone 5 Mg Tablet PO 10 mg BEDTIME BC Administration Trazodone HCl 150 mg 05/18/25 16:56 05/20/25 19:50 Trazodone 50 Mg Tablet PO 150 mg BEDTIME PRN Administration Insomnia Objective Labs 05/21/25 04:44 05/21/25 04:44 Labs: Laboratory Results - last 24 hr 05/20/25 05/20/25 05/20/25 11:46 13:08 14:18 WBC 12.5 H RBC 4.45 L Hgb 11.8 L Hct 35.2 L MCV 79.1 L MCH 26.5 MCHC 33.4 RDW 16.6 H Plt Count 182 Neut % (Auto) 89.3 H Lymph % (Auto) 5.8 L [place] % (Auto) 4.4 Eos % (Auto) 0.1 L Baso % (Auto) 0.4 Neut # (Auto) 37080 H Lymph # (Auto) 700 L [place] # (Auto) 600 Eos # (Auto) 0 Baso # (Auto) 0 VBG pH 7.45 H VBG pCO2 31.0 L VBG pO2 50 H VBG HCO3 22 L VBG Total CO2 20 L VBG O2 Saturation 87 H VBG Base Excess -1.3 L Sodium 126 L Potassium 3.1 L D Chloride 97 L Carbon Dioxide 19 L BUN 11 Creatinine 0.77 Estimated GFR > 60 BUN/Creatinine Ratio 14.3 Glucose 178 H POC Whole Bld Glucose 235 H Lactate Calcium 7.5 L Total Bilirubin AST ALT Alkaline Phosphatase Total Protein Albumin Globulin Albumin/Globulin Ratio 05/20/25 05/20/25 05/20/25 14:30 16:55 20:05 WBC RBC Hgb Hct MCV MCH MCHC RDW Plt Count Neut % (Auto) Lymph % (Auto) [place] % (Auto) Eos % (Auto) Baso % (Auto) Neut # (Auto) Lymph # (Auto) [place] # (Auto) Eos # (Auto) Baso # (Auto) VBG pH VBG pCO2 VBG pO2 VBG HCO3 VBG Total CO2 VBG O2 Saturation VBG Base Excess Sodium Potassium Chloride Carbon Dioxide BUN Creatinine Estimated GFR BUN/Creatinine Ratio Glucose POC Whole Bld Glucose 213 H 241 H Lactate 1.1 Calcium Total Bilirubin AST ALT Alkaline Phosphatase Total Protein Albumin Globulin Albumin/Globulin Ratio 05/21/25 05/21/25 04:44 07:57 WBC 12.6 H RBC 4.52 Hgb 11.9 L Hct 36.1 L MCV 79.9 L MCH 26.4 MCHC 33.0 RDW 16.3 H Plt Count 170 Neut % (Auto) 87.7 H Lymph % (Auto) 5.4 L [place] % (Auto) 6.7 Eos % (Auto) 0.0 L Baso % (Auto) 0.2 Neut # (Auto) 79051 H Lymph # (Auto) 700 L [place] # (Auto) 800 Eos # (Auto) 0 Baso # (Auto) 0 VBG pH VBG pCO2 VBG pO2 VBG HCO3 VBG Total CO2 VBG O2 Saturation VBG Base Excess Sodium 126 L Potassium 4.0 Chloride 96 L Carbon Dioxide 18 L BUN 16 Creatinine 0.99 Estimated GFR > 60 BUN/Creatinine Ratio 16.2 Glucose 183 H POC Whole Bld Glucose 193 H Lactate Calcium 8.3 L Total Bilirubin 0.5 AST 44 ALT 22 Alkaline Phosphatase 72 Total Protein 6.9 Albumin 3.7 Globulin 3.2 Albumin/Globulin Ratio 1.2 Exam Vital Signs (past 8 hours): - 05/21/25 01:30 05/21/25 02:00 05/21/25 02:01 Temperature Pulse Rate 108 H 103 H 104 H Respiratory Rate 25 H 23 21 Blood Pressure Pulse Oximetry 92 92 91 Oxygen Delivery Method Oxygen Flow Rate Fraction of Inspired Oxygen 05/21/25 02:01 05/21/25 02:30 05/21/25 03:00 Temperature Pulse Rate 103 H 108 H Respiratory Rate 22 24 Blood Pressure 154/70 H Pulse Oximetry 94 86 L Oxygen Delivery Method Oxygen Flow Rate Fraction of Inspired Oxygen 05/21/25 03:20 05/21/25 03:30 05/21/25 04:00 Temperature Pulse Rate 98 H Respiratory Rate 19 Blood Pressure 154/70 H Pulse Oximetry 93 Oxygen Delivery Method BiPAP Oxygen Flow Rate Fraction of Inspired Oxygen 55 05/21/25 04:00 05/21/25 04:00 05/21/25 04:30 Temperature 98.6 F Pulse Rate 100 H 97 H Respiratory Rate 19 21 Blood Pressure 146/66 H Pulse Oximetry 91 95 Oxygen Delivery Method Oxygen Flow Rate Fraction of Inspired Oxygen 05/21/25 05:00 05/21/25 05:30 05/21/25 06:00 Temperature Pulse Rate 94 H 93 H Respiratory Rate 20 21 Blood Pressure 142/67 H Pulse Oximetry 89 L 92 Oxygen Delivery Method Oxygen Flow Rate Fraction of Inspired Oxygen 05/21/25 06:00 05/21/25 06:30 05/21/25 07:00 Temperature Pulse Rate 100 H 94 H 96 H Respiratory Rate 25 H 23 19 Blood Pressure Pulse Oximetry 79 L 100 98 Oxygen Delivery Method Oxygen Flow Rate Fraction of Inspired Oxygen 05/21/25 07:30 05/21/25 08:00 05/21/25 08:00 Temperature Pulse Rate 103 H 112 H Respiratory Rate 21 27 H Blood Pressure 134/62 Pulse Oximetry 98 99 Oxygen Delivery Method Oxygen Flow Rate Fraction of Inspired Oxygen 05/21/25 08:30 05/21/25 08:55 05/21/25 08:57 Temperature 98.7 F Pulse Rate 111 H 118 H Respiratory Rate 31 H 20 Blood Pressure 134/62 Pulse Oximetry 84 L 96 Oxygen Delivery Method Heated High Flow Oxygen Flow Rate 45 Fraction of Inspired Oxygen 55 Fraction of Inspired Oxygen 55 SaO2/FiO2 Ratio 172 Oxygen Delivery Method Heated High Flow Oxygen Flow Rate 45 Narrative Exam Narrative: states he is feeling better breathing comfortably, less SOB sore from hospital bed/lying around Resp Other: non labored breathing Quality TeleICU VTE Deep Vein Thrombosis/Pulmonary Embolism Present on Admission: No Assessment & Plan Assessment & Plan narrative: Acute hypoxemic resp failure, Aspiration PNA/ HAP Hyponatremia 2/2 hypervolemic VS SIADH Sepsis 2/2 PNA & LLE cellulitis Morbid obesity Cervical myelopathy on high-dose opioid therapy, suboxone chronic venous insufficiency High flow o2 for sat goal >92% continue nebs check vbg this am on high flow would continue bipap for sleeping continue broad spectrum abx: flagyl vanc, Moxifloxacin , follow up blood abd resp cx consider additonal dose of lasix today check BNp follow up repeat CXR Check 2 D echo- done, result pending Heparin for VTE ppx ppi BMP Q12H trend cr, uop replete lytes prn Time-Based Coding :: [30 minutes] spent with patient and on the chart (including review of chart, obtaining history, exam, reviewing outside data, placing orders, documenting exam and treatment plan, and counseling patient) on 05/21/25].
--- NOTE | 2025-05-21 09:37 | DI.RAD.S_ITS ---
PROCEDURE: XR CHEST 1V INDICATIONS: follow up PNA TECHNIQUE: One view of the chest was acquired. COMPARISON: [facility], CT, CT ANGIO CHEST PE PROTOCOL, 05/20/2025, 11:18. [facility], CR, XR CHEST 1V, 07/23/2024, 17:54. FINDINGS: Surgical changes and devices: None. Lungs and pleura: Extensive airspace opacities are noted throughout bilateral lung johnson. No pleural effusions or pneumothorax. Mediastinum: Mediastinal contours appear normal. Heart size is enlarged. Bones and chest wall: No suspicious bony lesions. Overlying soft tissues appear unremarkable. IMPRESSION: Extensive bilateral pulmonary infiltrates not significantly changed from previous CT angiogram of chest study. No gross pneumothorax. No significant pleural effusion. Dictated by: Juice Hankins M.D. on 05/21/2025 at 10:04 Approved by: Juice Hankins M.D. on 05/21/2025 at 10:06
[2025-05-21] MEDS: FINASTERIDE 5 MG TABLET PO (09:41)
[2025-05-21 09:51] LABS: Allen Test for ABG Passed? Positive; Blood Gas Collection Site Right Radial; HCO3 ABG 22 mmol/L (23-27); Oxygen Saturation ABG 87 % (95-100); PCO2 ABG 31.0 mmHg (35-45); PO2 ABG 50 mmHg (80-100); TCO2 ABG 20 mmol/L (23-27)
[2025-05-21 10:08] LABS: NT-proBNP (BNP-Adult 18+) 826 pg/mL (<125)
[2025-05-21 10:15] LABS: Coronavirus NL 63 Not Detected (Not Detect); SARS- CoV-2 Not Detected (Not Detecte)
[2025-05-21] MEDS: BUPRENORPHINE NALOXONE 1 EACH SL ×3 (10:54→20:21)
--- NOTE | 2025-05-21 11:20 | PC.NURSE ---
Addendum entered by Shelby Millan RN 05/21/25 12:04: Disregard previous note. Entered in error. Original Note: Skin note: large area of excoriation over groin and buttocks. Zinc barrier cream, mepilex applied, turns q2hr. Unstageable pressure injuries noted to R and L heels, see pictures. R > L. Heels floated with offloading devices. Area of blanchable erythema noted on L elbow, mepilex applied and elbow floated.
--- NOTE | 2025-05-21 12:04 | CM.DPNOTE ---
YAHIR Cont Reviewed chart. Patient discussed in multidisciplinary rounds. Patient expected to remain admitted for at least 48hrs for continued medical management. Now ICU status. Plan remains discharge home w/SO w/close outpatient follow up. Social work team following clinical course closely in case any discharge needs or concerns arise. CASSIE
--- NOTE | 2025-05-21 12:27 | ST.IPCSEOM ---
Visit Care Team Role Provider Type Ricardo Victoria MD Primary Care Provider Physician Specialty: Family Practice Address: [address] [place] [address], [address] Email: [email or web address] Shante Ocampo MD Other Providers Physician Specialty: Medical Address: Phone: Fax: Email: Yesi Courtney MD Other Providers Physician Specialty: Medical Address: Phone: Fax: Email: JARON Handley Other Providers Registered Nurse Specialty: Nursing Address: Phone: Fax: Email: Sia Ramirez MD Other Providers Physician Specialty: Anesthesiology Address: Phone: Fax: Email: JARON Marcano Other Providers Registered Nurse Specialty: Nursing Address: [address], [place], [address] Fax: Email: Maryanne Celeste LPN Other Providers Licensed Practical Nurse Specialty: Nursing Address: [address], [place], [address] Phone: Fax: Email: Mika Hamilton MD Other Providers Physician Specialty: Medical Address: [facility] [place], [address] Phone: Fax: Email: JARON Anna Other Providers Registered Nurse Specialty: Nursing Address: [address] [place] [address], [address] Fax: Email: Gail Elaine DO Other Providers Physician Specialty: Internal Medicine Address: [address] [place] [address], [address] Phone: Fax: Email: Cleopatra Noonan MD Other Providers Physician Specialty: Internal Medicine Address: Phone: Fax: Email: JARON Sampson Other Providers Registered Nurse Specialty: Nursing Address: [address], [place], [address] Fax: Email: Maico Noonan MD Other Providers Physician Specialty: Medical Address: Phone: Fax: Email: Davon Shahid MD Other Providers Physician Specialty: Internal Medicine Address: [address] [place] [address], [address] Fax: Email: Sue Woods DO Other Providers Physician Specialty: Internal Medicine Address: [address] [place], [address] Phone: Fax: Email: Leia Dubose MD Other Providers Physician Specialty: Anesthesiology Internal Medicine Address: [address] [place] [address], [address] Fax: Email: [email or web address] JARON Templeton Other Providers Advanced Software Sales Manager Specialty: Nursing Address: [address], [place], [address] Fax: Email: Kenny Forde DO Other Providers Physician Specialty: Hospitalist Address: Phone: Fax: Email: Fernanda Aaron MD Other Providers Physician Specialty: Internal Medicine Address: [address] [place], [address] Phone: Fax: Email: [email or web address] Sylvester MD Other Providers Physician Specialty: Internal Medicine Address: Phone: Fax: Email: Deyvi Westbrook MD Other Providers Physician Specialty: Pulmonology Address: [address] , [place], [address] Phone: Fax: Email: [email or web address] Eileen Vanegas MD Other Providers Physician Specialty: Anesthesiology Address: [address], [place], [address] Fax: Email: Subhsah Bhatt MD Other Providers Physician Specialty: Medical Address: Phone: Fax: Email: Talat Hdez MD Other Providers Physician Specialty: Internal Medicine Address: [address] [place], [address] Phone: Fax: Email: Juancarlos Anderson MD Other Providers Physician Specialty: Medical Address: [address], [address] Phone: Fax: Email: Nani Bae MD Other Providers Physician Specialty: Medical Address: Phone: Fax: Email: JARON Rehman Other Providers Advanced Software Sales Manager Specialty: Nursing Address: [address] [place] [address], [address] Phone: Fax: Email: Eri Gotti Other Providers Physician Specialty: Medical Address: Phone: Fax: Email: JARON Mcmanus Other Providers Advanced Software Sales Manager Specialty: Nursing Address: [address], [place], [address] Fax: Email: Claudine Ortiz MD Other Providers Physician Specialty: Internal Medicine Address: Phone: Fax: Email: Sohail Govea MD Other Providers Physician Specialty: Internal Medicine Address: [address], [place], [address] Fax: Email: Augustus Levin MD Other Providers Physician Specialty: Hospitalist Address: [address] [place] [address], [address] Phone: Fax: Email: David Hill MD Other Providers Physician Specialty: Anesthesiology Address: Phone: Fax: Email: JARON Llanos Other Providers Registered Nurse Specialty: Nursing Address: [address] [place] [address], [address] Phone: Fax: Email: JARON Hernandez Emergency Provider Advanced Software Sales Manager Referring Provider Specialty: Emergency Medicine Address: [facility] [place], [address] Email: [email or web address] Attending Provider Physician Other Providers Specialty: Internal Medicine Address: [address] [place] [address], [address] Email: [email or web address] Maico Rojas MD Admit Provider Physician Specialty: Internal Medicine Address: [address] [place] [address], [address] Fax: Email: [email or web address] Current Diagnoses Cellulitis of left lower limb (05/18/25) Past Medical History (Last Reviewed 05/20/25 @ 12:56 by Baltazar Welch MD) Cervical stenosis of spinal canal (Medical) Chronic pain syndrome (Medical) EMA (generalized anxiety disorder) (Medical) 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 (Medical) Hyperlipidemia (Medical) Hypertension (Medical) Iron deficiency anemia (Medical) Myocarditis (Medical) OCD (obsessive compulsive disorder) (Medical) Tobacco use disorder (Medical) Varicose vein of leg (Medical) Speech-Language Pathology Swallow Evaluation PANEL EDGE PAINTER Clinical Swallow Evaluation Start: 05/21/25 12:12 Freq: Status: Active Protocol: Document 05/21/25 12:13 MA (Rec: 05/21/25 12:27 MA Desktop) Clinical Swallow Evaluation Session Time Visit Start Time 11:00 Visit Stop Time 11:20 Total Visit Minutes 20 Visit Information Visit Number [address] Welch Reason for Referral Possible aspiration PNA Setting Assessment Location Acute Care Visit Type Note Type Initial evaluation Next Note Type Next Note Type Treatment Note Patient Information Identification Type Name,Wristband History Per H&P: 05/19: Patient is feeling better tolerating diet sodium improved to 128 leg has less pain 05/20: The patient is noted to be hypoxic this morning, with oxygen saturations of 85% on 6 L nasal cannula oxygen. He denies any cough, shortness breath or aspiration events but does note that he feels weak and lightheaded today. Feels his cellulitis has resolved. His sodium was 125. He had over 5 L of fluid intake yesterday. He was administered 40 of IV furosemide and a CT angiogram obtained which showed diffuse bilateral infiltrates worse on the left. He has a history of cervical myelopathy and has been determined to be a nonsurgical candidate. He denies dysphagia symptoms but states he has trouble swallowing pills sometimes. He continues on high-dose opioid therapy. He is seen with his partner at bedside. They are unaware of excessive sedation or aspiration events O: NAD, alert and oriented. Fluent speech. Lungs are clear, normal rate and effort. Heart is regular, no murmur gallop or rub. Abdomen is soft, non distended. Extremities are free of edema. A/P: 1. Cellulitis of left lower leg 5 days after cellulitis of the right hand; the hand improved with clindamycin however this other cellulitis of left leg appeared afterwards suggesting development of resistance Vancomycin for MRSA coverage Ciprofloxacin for Pseudomonas coverage - switch to Moxifloxacin 05/20 for aspiration coverage - see below Multiple allergies to cephalosporins and penicillins Much improved and essentially resolved. 2. Hyponatremia with infection and while taking ibuprofen, spironolactone and losartan which could all inhibits sodium retention Hold losartan spironolactone and ibuprofen until sodium normalizes Furosemide 40mg IV x 1 today Daily monitoring 3. Bilateral pulmonary infiltrates, new onset 05/20 likely silent aspiration event Probable aspiration related to cervical myelopathy, possibly related to chronic high dose opioid therapy Transfer to ICU Swallowing evaluation Switch Ciprofloxacin to Moxifloxacin 400mg IV daily on 05/20 4. Acute hypoxemic respiratory failure due to presumed aspiration Transfer to ICU ABG, RT consult BiPAP/CPAP, possible intubation if worsening or refractory 5. Dysphagia Consult speech therapy Wean chronic oxycodone dosing Note he continues on chronic Suboxone therapy which may need to be adjusted ST referred for ST evaluation d/t Pt reporting sometimes difficulties swallowing pills and Pt with left lower lob infiltrates shown on CT scan d/t Pt O2 sats dropping. Subjective Pt sitting upright in room with O2 in place via nasal Observations cannula. Pt had a visitor sitting on EOB. Pt Ox3 and denies any swallowing difficulties at home, except for occasional trouble with his Metformin medication. Pt compliant with swallow evaluation. ST reviewed Pt's chart prior to evaluation and spoke with his nurse who states he is negative for COVID and reports Pt has spinal stenosis, which may cause him to not have his head postured in neutral position when swallowing. Reported by Patient/Caregiver Current Diet Regular (IDDSI 7) Baseline Feeding Independent in self-feeding Method The IDDSI Framework Protocol: IDDSI.1 Objective Assessment Mental Status Alert,Responsive,Cooperative Oral Integrity WFL Dentition Within normal limits Comment Oral motor exam WFL. Food and Liquid Trials Position During Upright (90 degrees) Assessment Liquids Trialed Thin (IDDSI 0) Solid Trials Regular (IDDSI 7) Administration Type Straw,Self-feeding Oral Impairment Within functional limits Oral Phase Comments Pt consumed jeanie crackers and thin water via straw. Pt able to feed self, however slight tremor. Pt visitor reports he has always had a slight tremor. For jeanie cracker, Pt exhibited adequate bite size and rate, adequate mastication time, mild oral residue, no overt s/s of aspiration such as choking or coughing with clear vocal quality post swallow. Pt denied any swallow difficulties. For thin water via straw Pt exhibited adequate suction, good oral acceptance and containment, clear vocal quality post swallow, no overt s/s of aspiration. Pt head in neutral position for all PO trials. Pharyngeal Within functional limits Impairment Pharyngeal Phase See oral phase comments. Comments Fatigue/Endurance Endurance WNL The IDDSI Framework Protocol: IDDSI.1 Findings Swallowing Function Within functional limits Severity of Swallow Within functional limits Impairment Prognosis Good Recommendations Instrumental Yes Assessment Swallowing Treatment Yes Frequency 1x/f/u following MBS Recommended Solids Regular (IDDSI 7) Recommended Liquids Thin (IDDSI 0) Other ST recommends IDDSI 7 and IDDSI 0. Pt did not exhibit Recommendations any s/s of aspiration such as choking or coughing or reports of food feeling stuck in throat. ST cannot result out aspiration PNA without an instrumental. ST recommends Modified Barium Swallow ordered in order to rule out aspiration. ST communicated recommendation with MD. ST educated Pt on safe swallowing strategies, such as remaining upright for all meals, and for at least 30 minutes after eating, small bites, slow sip, alternating liquids/solids. Safety Precautions/ Remain upright (90 degrees) during all oral intake, Swallowing Upright position at least 30 minutes after meals,Small Recommendations bites and sips when eating,Slow rate; swallow between bites,Alternate liquids and solids Medication As Tolerated Recommendations Education Patient/Caregiver Described results of evaluation,Patient expressed Education understanding of evaluation,Patient expressed agreement with goals & treatment plans,Patient requires further education/training,Family/caregivers require further education/training Goals Short-term Goals STG 1: Pt will participate in MBS in order to further analyze oral and pharyngeal phases of the swallow. STG 2: Pt will tolerate prescribed diet with <5% overt s/s of aspiration/dysphagia with use of compensatory swallowing strategies and minimal cues. Long-term Goals LTG 1: Patient will consume safest and most efficient least restrictive diet with no clinical s/s of aspiration or dysphagia 100% of the time in order to meet primary nutrition/hydration needs.
--- NOTE | 2025-05-21 16:09 | PC.NURSE ---
Day shift: Pt A&Ox4 up in chair, declining the bed at this time due to chronic back pain and discomfort. On BiPAP at change of shift and until breakfast. Tolerating meals. On heated high flow per eICU recommendation. Pt denies dizziness upon standing but does report mild SOB. Oxygenation decreasing to low 80's pulse oximetry, RT notified and changes made by RT. Pt oxygenation currently 88%-91% on heated high flow, Stach HR, BP 115/92. Care ongoing.
[2025-05-21] MEDS: INSULIN GLARGINE 100 UNIT/ML 3ML PEN 10 UNIT SUBCUT (20:21)
[2025-05-21] MEDS: PANTOPRAZOLE DR 20 MG TABLET PO (21:06)
[2025-05-22] VITALS (64 sets, daily range): BP systolic 119–140; BP diastolic 60–64; PULSE 101–122; RESP 10–27; TEMP 36.5–37.1; O2SAT 82–99
[2025-05-22] MEDS: VANCOMYCIN 1,250 MG/250 ML PIGGYBACK 250 MG IV (01:29)
[2025-05-22] MEDS: CYCLOBENZAPRINE 10 MG TABLET PO ×3 (06:04→20:19)
--- NOTE | 2025-05-22 07:47 | P.PN_ITS ---
Subjective Subjective Interval history: Hospital course: 05/19: Patient is feeling better tolerating diet sodium improved to 128 leg has less pain 05/20: The patient is noted to be hypoxic this morning, with oxygen saturations of 85% on 6 L nasal cannula oxygen. He denies any cough, shortness breath or aspiration events but does note that he feels weak and lightheaded today. Feels his cellulitis has resolved. His sodium was 125. He had over 5 L of fluid intake yesterday. He was administered 40 of IV furosemide and a CT angiogram obtained which showed diffuse bilateral infiltrates worse on the left. He has a history of cervical myelopathy and has been determined to be a nonsurgical candidate. He denies dysphagia symptoms but states he has trouble swallowing pills sometimes. He continues on high-dose opioid therapy. He is seen with his partner at bedside. They are unaware of excessive sedation or aspiration events. 05/21: Stable on a combination of BiPAP at night and HFO2 during the day. S: He was on BiPAP overnight, and is on high-flow this morning. He did desaturate requiring a transient increase in FiO2 but now as had lowered settings in his feeling relatively good. ICU team did add IV Lasix this morning and a blood gas for several hours from now to prove stability of ventilation on high-flow. He otherwise feels well in his still coughing, this is primarily dry. O: VS below. NAD, alert and oriented. Fluent speech. Lungs are clear, normal rate and effort. Heart is regular, no murmur gallop or rub. Abdomen is soft, non distended. Extremities are free of edema. A/P: 1. Cellulitis of left lower leg 5 days after cellulitis of the right hand; the hand improved with clindamycin however this other cellulitis of left leg appeared afterwards. * Vancomycin for MRSA coverage * Ciprofloxacin for Pseudomonas coverage - switch to Levoquin 05/21 (moxy not on formulary or obtainable). * Multiple allergies to cephalosporins and penicillins (reports of nausea) 2. Hyponatremia with infection and while taking ibuprofen, spironolactone and losartan which could all inhibits sodium retention. 126 to 127. * Hold losartan spironolactone and ibuprofen until sodium normalizes (remains at 126). * Furosemide 40mg IV 05/20. * Daily monitoring, check Ur Na. 3. Bilateral pulmonary infiltrates (pneumonia), new onset 05/20 likely silent aspiration event * Probable aspiration related to cervical myelopathy, possibly related to chronic high dose opioid therapy * Transfer to ICU * Swallowing evaluation ([facility] 05/22). * Switch Ciprofloxacin to Levoquin 750 IV QD. 4. Acute hypoxemic respiratory failure due to presumed aspiration. * ABG, RT consult * BiPAP/CPAP, possible intubation if worsening or refractory. High flow for periods of time as requested. 5. Dysphagia * Consult speech therapy, they felt he was low risk of aspiration but did recommend a modified barium study when he was improved clinically. * Wean chronic oxycodone dosing * Note he continues on chronic Suboxone therapy which may need to be adjusted Chronic Medical problems: * Chronic pain on chronic opiates * Tobacco use disorder * EMA (generalized anxiety disorder) * OCD (obsessive compulsive disorder) * 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 * Iron deficiency anemia * Chronic pain syndrome * Cervical stenosis of spinal canal * Hypertension * Hyperlipidemia * Varicose vein of leg * Myocarditis PLAN: -continue IV antibiotics. -check urine sodium. -elevate leg. -BiPAP as needed, wean FiO2 as able. -Ur Na DVT prophylaxis: * Subcutaneous heparinDisposition: * Anticipate prolonged hospitalization given onset of acute aspiration and hypoxemic respiratory failureCode status: * Full code. Care was reviewed with his partner Silvestre Croft at bedside who is his Surrogate decision maker. Exam Vital Signs (past 8 hours): - 05/22/25 00:00 05/22/25 00:00 05/22/25 00:30 Temperature Pulse Rate 115 H 117 H Respiratory Rate 23 22 Blood Pressure Pulse Oximetry 91 89 L Oxygen Delivery Method BiPAP Fraction of Inspired Oxygen 05/22/25 01:00 05/22/25 01:29 05/22/25 01:30 Temperature Pulse Rate 116 H 117 H Respiratory Rate 21 21 Blood Pressure Pulse Oximetry 86 L 91 Oxygen Delivery Method Fraction of Inspired Oxygen 75 05/22/25 02:00 05/22/25 02:30 05/22/25 03:00 Temperature 97.9 F Pulse Rate 116 H 114 H 114 H Respiratory Rate 22 22 22 Blood Pressure Pulse Oximetry 93 93 92 Oxygen Delivery Method Fraction of Inspired Oxygen 05/22/25 03:17 05/22/25 03:17 05/22/25 03:30 Temperature Pulse Rate 114 H 113 H Respiratory Rate 23 23 Blood Pressure 123/61 Pulse Oximetry 93 92 Oxygen Delivery Method Fraction of Inspired Oxygen 05/22/25 04:00 05/22/25 04:00 05/22/25 04:30 Temperature Pulse Rate 115 H 115 H Respiratory Rate 23 22 Blood Pressure Pulse Oximetry 92 92 Oxygen Delivery Method BiPAP Fraction of Inspired Oxygen 05/22/25 05:00 05/22/25 05:30 05/22/25 06:00 Temperature Pulse Rate 113 H 112 H 122 H Respiratory Rate 22 22 23 Blood Pressure Pulse Oximetry 93 93 88 L Oxygen Delivery Method Fraction of Inspired Oxygen Fraction of Inspired Oxygen 75 SaO2/FiO2 Ratio 170 Oxygen Delivery Method BiPAP Oxygen Flow Rate 50 Objective Labs 05/21/25 04:44 05/22/25 09:39 Labs: Laboratory Results - last 24 hr 05/20/25 05/21/25 05/21/25 13:08 04:44 07:57 ABG Sample Site Right radial ABG pH 7.45 ABG pCO2 31.0 L ABG pO2 50 L ABG HCO3 22 L ABG Total CO2 20 L ABG O2 Saturation 87 L ABG Base Excess -1.3 Tanner Test Positive POC Whole Bld Glucose 193 H NT-Pro-B Natriuret Pep 826 H Chlamy pneumoniae PCR Adenovirus (PCR) B. pertussis DNA (PCR) B.parapertussis DNA PCR Coronavirus OC43 (PCR) Coronavirus HKU1 (PCR) Coronavirus 229E (PCR) SARS-CoV-2 (PCR) Coronavirus NL63 (PCR) Human Metapneumovir PCR Influenza Type A (PCR) Influenza Type B (PCR) M. pneumoniae (PCR) Parainfluenza 1 (PCR) Parainfluenza 2 (PCR) Parainfluenza 3 (PCR) Parainfluenza 4 (PCR) RSV (PCR) Entero/Rhino (PCR) 05/21/25 05/21/25 05/21/25 09:00 11:55 16:41 ABG Sample Site ABG pH ABG pCO2 ABG pO2 ABG HCO3 ABG Total CO2 ABG O2 Saturation ABG Base Excess Tanner Test POC Whole Bld Glucose 211 H 244 H NT-Pro-B Natriuret Pep Chlamy pneumoniae PCR Not detected Adenovirus (PCR) Not detected B. pertussis DNA (PCR) Not detected B.parapertussis DNA PCR Not detected Coronavirus OC43 (PCR) Not detected Coronavirus HKU1 (PCR) Not detected Coronavirus 229E (PCR) Not detected SARS-CoV-2 (PCR) Not detected Coronavirus NL63 (PCR) Not detected Human Metapneumovir PCR Not detected Influenza Type A (PCR) Not detected Influenza Type B (PCR) Not detected M. pneumoniae (PCR) Not detected Parainfluenza 1 (PCR) Not detected Parainfluenza 2 (PCR) Not detected Parainfluenza 3 (PCR) Not detected Parainfluenza 4 (PCR) Not detected RSV (PCR) Not detected Entero/Rhino (PCR) Not detected 05/21/25 20:13 ABG Sample Site ABG pH ABG pCO2 ABG pO2 ABG HCO3 ABG Total CO2 ABG O2 Saturation ABG Base Excess Tanner Test POC Whole Bld Glucose 237 H NT-Pro-B Natriuret Pep Chlamy pneumoniae PCR Adenovirus (PCR) B. pertussis DNA (PCR) B.parapertussis DNA PCR Coronavirus OC43 (PCR) Coronavirus HKU1 (PCR) Coronavirus 229E (PCR) SARS-CoV-2 (PCR) Coronavirus NL63 (PCR) Human Metapneumovir PCR Influenza Type A (PCR) Influenza Type B (PCR) M. pneumoniae (PCR) Parainfluenza 1 (PCR) Parainfluenza 2 (PCR) Parainfluenza 3 (PCR) Parainfluenza 4 (PCR) RSV (PCR) Entero/Rhino (PCR) [facility] Medical History Cervical stenosis of spinal canal Chronic pain syndrome EMA (generalized anxiety disorder) 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 Hyperlipidemia Hypertension Iron deficiency anemia Myocarditis OCD (obsessive compulsive disorder) Tobacco use disorder Varicose vein of leg Surgical History No pertinent past surgical history Social History marital status: unmarried,single household members: significant other lives independently: Yes occupational status: disabled Smoking Status: Current every day smoker alcohol intake: never substance use type: does not use Assessment & Plan Time-Based Coding :: [TOTAL MINUTES] spent with patient and on the chart (including review of chart, obtaining history, exam, reviewing outside data, placing orders, documenting exam and treatment plan, and counseling patient) on [DATE]. Quality VTE Deep Vein Thrombosis/Pulmonary Embolism Present on Admission: No
[2025-05-22] MEDS: BUDESONIDE 0.5 MG/2 ML NEB INH ×2 (07:50→19:25)
[2025-05-22] MEDS: ALBUTEROL/IPRATROPIUM 3 ML AMPUL INH ×4 (07:50→19:25)
--- NOTE | 2025-05-22 08:19 | PC.NURSE ---
Day shift: Pt reporting increased SOB, fatigue, and concern over oxygenation. RT at bedside adjusting HHF, pt reports mild improvement in symptoms. Provider at bedside, oxygenation 89% on increased HHF settings of 70% 50L. Pt up in chair, agreeable to potential BiPAP after breakfast. Care ongoing.
[2025-05-22] MEDS: GABAPENTIN 600 MG TABLET 1200 MG PO ×3 (08:36→20:20)
[2025-05-22] MEDS: HEPARIN 5,000 UNIT/ML VIAL 5000 UNIT SUBCUT ×3 (08:36→21:13)
[2025-05-22] MEDS: INSULIN LISPRO 100 UNIT/ML 3ML VIAL SUBCUT ×4 (08:36→21:12)
[2025-05-22] MEDS: FINASTERIDE 5 MG TABLET PO (08:37)
[2025-05-22] MEDS: NICOTINE 14 PATCH 14 MG TOP (08:39)
[2025-05-22] MEDS: SODIUM CHLORIDE 0.9% FLUSH 10 ML IV ×2 (08:39→21:13)
[2025-05-22] MEDS: BUPRENORPHINE NALOXONE 1 EACH SL ×3 (09:30→20:20)
[2025-05-22] MEDS: FERROUS SULFATE 325 MG TABLET PO (09:31)
--- NOTE | 2025-05-22 09:43 | PM.PN.EICU ---
Subjective Subjective IF CAMERA ACTIVATED, patient seen via real-time interactive audiovisual communication: Camera activated Consent obtained for tele-commercial real estate manager care: Yes Patient Location: ICU Provider location (State): [place] Other participants/roles: RN Interval history: Following up on this 55 yo M w/ acute hypoxic respiratory failure due to postulated CHF exacerbation +/- aspiration pneumonia as well as LLE cellulitis. INTERIM EVENTS: (-) 1250 mL Current Medications Current Medications Medications: Home Medications epinephrine 0.3 mg/0.3 mL injection, auto-injector (EpiPen 2-Nura) 0.3 mg (0.3 mL) IM SEE INSTRUCTIONS #2 ea 07/17/19 [Rx Confirmed 05/18/25] spironolactone 25 mg tablet 25 mg PO BID 12/28/23 [History Confirmed 05/18/25] furosemide 40 mg tablet See Rx Instructions .Route .COMPLEX PRN Swelling 06/10/24 [History Confirmed 05/18/25] ipratropium 0.5 mg-albuterol 3 mg (2.5 mg base)/3 mL nebulization soln 3 ml INH [id number] PRN Shortness Of Breath #120 doses 06/12/24 [Rx Confirmed 05/18/25] nicotine 14 mg/24 hr daily transdermal patch (Nicoderm CQ) 1 patch transdermal DAILY #14 ea 06/12/24 [Rx Confirmed 05/18/25] ondansetron 4 mg disintegrating tablet 4 mg PO Q8H PRN nausea and vomiting #14 tabs 01/24/25 [Rx Confirmed 05/18/25] albuterol sulfate 90 mcg/actuation aerosol inhaler See Rx Instructions .Route .COMPLEX #8.5 grams 01/31/25 [Rx Confirmed 05/18/25] ferrous gluconate 324 mg (37.5 mg iron) tablet 324 mg PO DAILY #90 tabs 01/31/25 [Rx Confirmed 05/18/25] finasteride 5 mg tablet 5 mg PO DAILY #90 tabs 01/31/25 [Rx Confirmed 05/18/25] losartan 100 mg tablet 100 mg PO DAILY #90 tabs 01/31/25 [Rx Confirmed 05/18/25] prednisone 10 mg tablet 10 mg PO BEDTIME #90 tabs 01/31/25 [Rx Confirmed 05/18/25] cyclobenzaprine 10 mg tablet 10 mg PO TID PRN muscle spasm #180 tabs 02/01/25 [Rx Confirmed 05/18/25] gabapentin 600 mg tablet 1,200 mg (2 x 600 mg) PO TID #240 tabs 02/27/25 [Rx Confirmed 05/18/25] lidocaine 5 % topical patch (Lidoderm) 1 patch topical DAILY #30 ea 02/27/25 [Rx Confirmed 05/18/25] metformin 500 mg tablet See Rx Instructions .Route .COMPLEX #360 tabs 03/07/25 [Rx Confirmed 05/18/25] diazepam 2 mg tablet 4 mg (2 x 2 mg) PO BEDTIME PRN sleep #60 tabs 04/10/25 [Rx Confirmed 05/18/25] tirzepatide 10 mg/0.5 mL subcutaneous pen injector (Mounjaro) 10 mg (0.5 mL) SUBCUT QWEEK #2 mL 04/26/25 [Rx Confirmed 05/18/25] amlodipine 10 mg tablet 10 mg PO DAILY #90 tabs 05/07/25 [Rx Confirmed 05/18/25] mometasone-formoterol HFA 200 mcg-5 mcg/actuation aerosol inhaler (Dulera) See Rx Instructions .Route .COMPLEX #13 grams 05/07/25 [Rx Confirmed 05/18/25] oxycodone-acetaminophen 10 mg-325 mg tablet (Percocet) See Rx Instructions PO .COMPLEX PRN pain #180 tabs 05/10/25 [Rx Confirmed 05/18/25] mupirocin 2 % topical ointment 1 applic topical TID #15 grams 05/14/25 [Rx Confirmed 05/18/25] nicotine (polacrilex) 2 mg buccal mini lozenge 2 mg buccal Q2-4H PRN nicotine cravings #81 ea 05/16/25 [Rx Confirmed 05/18/25] nicotine 14 mg/24 hr daily transdermal patch 1 patch transdermal DAILY #28 ea 05/16/25 [Rx Confirmed 05/18/25] trazodone 150 mg tablet 150 mg PO BEDTIME PRN insomnia #30 tabs 05/16/25 [Rx Confirmed 05/18/25] beclomethasone dipropionate 80 mcg/actuation HFA breath activated aerosol (Qvar RediHaler) See Rx Instructions .Route .COMPLEX 05/18/25 [History Confirmed 05/18/25] buprenorphine 2 mg-naloxone 0.5 mg sublingual film (Suboxone) See Rx Instructions buccal .COMPLEX #30 ea 05/18/25 [Rx Confirmed 05/18/25] tiotropium bromide 18 mcg capsule with inhalation device (Spiriva with HandiHaler) See Rx Instructions .Route .COMPLEX 05/18/25 [History Confirmed 05/18/25] venlafaxine 75 mg tablet,extended release 24 hr 25 mg PO DAILY 05/18/25 [History Confirmed 05/18/25] Visit Medications (administered) Generic Name Dose Route Start Last Admin Trade Name Freq PRN Reason Stop Dose Admin Acetaminophen 650 mg 05/19/25 20:22 05/20/25 00:08 Acetaminophen 325 Mg Tablet PO 650 mg Q4H PRN Administration Fever/Mild Pain (1-3) Albuterol/Ipratropium 3 ml 05/18/25 19:00 05/22/25 07:50 Albuterol/Ipratropium 3 Ml Ampul INH 3 ml [id number] BC Administration Amlodipine Besylate 10 mg 05/19/25 09:00 05/21/25 08:03 Amlodipine 5 Mg Tablet PO 10 mg DAILY BC Administration Budesonide 0.5 mg 05/18/25 20:00 05/22/25 07:50 Budesonide 0.5 Mg/2 Ml Neb INH 0.5 mg RTBID BC Administration Cyclobenzaprine HCl 10 mg 05/18/25 16:56 05/22/25 06:04 Cyclobenzaprine 10 Mg Tablet PO 10 mg TID PRN Administration Muscle Spasm Diazepam 4 mg 05/18/25 16:56 05/21/25 01:13 Diazepam 2 Mg Tablet PO 4 mg BEDTIME PRN Administration Sleep Ferrous Sulfate 325 mg 05/19/25 09:00 05/22/25 09:31 Ferrous Sulfate 325 Mg Tablet PO 325 mg DAILY BC Administration Finasteride 5 mg 05/19/25 09:00 05/22/25 08:37 Finasteride 5 Mg Tablet PO 5 mg DAILY BC Administration Gabapentin 1,200 mg 05/18/25 17:00 05/22/25 08:36 Gabapentin 600 Mg Tablet PO 1,200 mg TID BC Administration Heparin Sodium (Porcine) 5,000 unit 05/18/25 21:00 05/22/25 08:36 Heparin 5,000 Unit/Ml Vial SUBCUT 5,000 unit BID BC Administration Hydralazine HCl 25 mg 05/19/25 08:00 05/21/25 17:48 Hydralazine 25 Mg Tablet PO Not Given BIDWM BC Vancomycin HCl 1,250 mg in 250 mls @ 250 mls/hr 05/18/25 18:00 05/22/25 02:29 Vancomycin IV Infused Q8H BC Infusion Levofloxacin 750 mg in 150 mls @ 100 mls/hr 05/21/25 13:30 05/21/25 15:05 Levaquin IV Infused Q24H BC Infusion Insulin Glargine 10 unit 05/21/25 21:00 05/21/25 20:21 Insulin Glargine 100 Unit/Ml 3ml Pen SUBCUT 10 unit BEDTIME BC Administration Insulin Human Lispro 0 unit 05/18/25 21:00 05/22/25 08:36 Insulin Lispro 100 Unit/Ml 3ml Vial SUBCUT 3 unit ACHS BC Administration Protocol Ipratropium [place] 0.5 mg 05/18/25 17:14 05/21/25 03:24 Ipratropium 0.5 Mg/2.5 Ml Neb INH 0.5 mg Q2H PRN Administration Shortness Of Breath Lidocaine 1 each 05/19/25 09:00 05/22/25 09:16 Lidocaine 5% Patch TOP Not Given DAILY BC Nicotine 14 mg 05/19/25 03:59 05/22/25 08:39 Nicotine 14 Patch TOP 14 mg DAILY BC Administration Buprenorphine- 1 mg 05/18/25 21:00 05/22/25 09:30 Naloxone [Suboxone] SL 1 mg 2-0.5 Mg Film TID BC Administration Oxycodone HCl 10 mg 05/18/25 17:40 05/22/25 06:04 Oxycodone Ir 10 Mg Tablet PO 10 mg Q4H PRN Administration Pain, Moderate (4-6) Pantoprazole Sodium 20 mg 05/20/25 21:00 05/21/25 21:[address] 20 Mg Tablet PO 20 mg 2100 BC Administration Prednisone 10 mg 05/22/25 09:00 05/22/25 08:37 Prednisone 5 Mg Tablet PO 10 mg DAILY BC Administration Sodium Chloride 10 ml 05/22/25 09:00 05/22/25 08:39 Sodium Chloride 0.9% Flush IV 10 ml BID BC Administration Trazodone HCl 150 mg 05/18/25 16:56 05/21/25 20:20 Trazodone 50 Mg Tablet PO 150 mg BEDTIME PRN Administration Insomnia Objective Labs 05/21/25 04:44 05/21/25 04:44 Labs: Laboratory Results - last 24 hr 05/20/25 05/21/25 05/21/25 13:08 04:44 09:00 ABG Sample Site Right radial ABG pH 7.45 ABG pCO2 31.0 L ABG pO2 50 L ABG HCO3 22 L ABG Total CO2 20 L ABG O2 Saturation 87 L ABG Base Excess -1.3 Tanner Test Positive POC Whole Bld Glucose NT-Pro-B Natriuret Pep 826 H Chlamy pneumoniae PCR Not detected Adenovirus (PCR) Not detected B. pertussis DNA (PCR) Not detected B.parapertussis DNA PCR Not detected Coronavirus OC43 (PCR) Not detected Coronavirus HKU1 (PCR) Not detected Coronavirus 229E (PCR) Not detected SARS-CoV-2 (PCR) Not detected Coronavirus NL63 (PCR) Not detected Human Metapneumovir PCR Not detected Influenza Type A (PCR) Not detected Influenza Type B (PCR) Not detected M. pneumoniae (PCR) Not detected Parainfluenza 1 (PCR) Not detected Parainfluenza 2 (PCR) Not detected Parainfluenza 3 (PCR) Not detected Parainfluenza 4 (PCR) Not detected RSV (PCR) Not detected Entero/Rhino (PCR) Not detected 05/21/25 05/21/25 05/21/25 11:55 16:41 20:13 ABG Sample Site ABG pH ABG pCO2 ABG pO2 ABG HCO3 ABG Total CO2 ABG O2 Saturation ABG Base Excess Tanner Test POC Whole Bld Glucose 211 H 244 H 237 H NT-Pro-B Natriuret Pep Chlamy pneumoniae PCR Adenovirus (PCR) B. pertussis DNA (PCR) B.parapertussis DNA PCR Coronavirus OC43 (PCR) Coronavirus HKU1 (PCR) Coronavirus 229E (PCR) SARS-CoV-2 (PCR) Coronavirus NL63 (PCR) Human Metapneumovir PCR Influenza Type A (PCR) Influenza Type B (PCR) M. pneumoniae (PCR) Parainfluenza 1 (PCR) Parainfluenza 2 (PCR) Parainfluenza 3 (PCR) Parainfluenza 4 (PCR) RSV (PCR) Entero/Rhino (PCR) 05/22/25 07:47 ABG Sample Site ABG pH ABG pCO2 ABG pO2 ABG HCO3 ABG Total CO2 ABG O2 Saturation ABG Base Excess Tanner Test POC Whole Bld Glucose 255 H NT-Pro-B Natriuret Pep Chlamy pneumoniae PCR Adenovirus (PCR) B. pertussis DNA (PCR) B.parapertussis DNA PCR Coronavirus OC43 (PCR) Coronavirus HKU1 (PCR) Coronavirus 229E (PCR) SARS-CoV-2 (PCR) Coronavirus NL63 (PCR) Human Metapneumovir PCR Influenza Type A (PCR) Influenza Type B (PCR) M. pneumoniae (PCR) Parainfluenza 1 (PCR) Parainfluenza 2 (PCR) Parainfluenza 3 (PCR) Parainfluenza 4 (PCR) RSV (PCR) Entero/Rhino (PCR) Exam Vital Signs (past 8 hours): - 05/22/25 02:00 05/22/25 02:30 05/22/25 03:00 Temperature 97.9 F Pulse Rate 116 H 114 H 114 H Respiratory Rate 22 22 22 Blood Pressure Pulse Oximetry 93 93 92 Oxygen Delivery Method Fraction of Inspired Oxygen 05/22/25 03:17 05/22/25 03:17 05/22/25 03:30 Temperature Pulse Rate 114 H 113 H Respiratory Rate 23 23 Blood Pressure 123/61 Pulse Oximetry 93 92 Oxygen Delivery Method Fraction of Inspired Oxygen 05/22/25 04:00 05/22/25 04:00 05/22/25 04:30 Temperature Pulse Rate 115 H 115 H Respiratory Rate 23 22 Blood Pressure Pulse Oximetry 92 92 Oxygen Delivery Method BiPAP Fraction of Inspired Oxygen 05/22/25 05:00 05/22/25 05:30 05/22/25 06:00 Temperature Pulse Rate 113 H 112 H 122 H Respiratory Rate 22 22 23 Blood Pressure Pulse Oximetry 93 93 88 L Oxygen Delivery Method Fraction of Inspired Oxygen 05/22/25 07:00 05/22/25 07:10 05/22/25 07:20 Temperature Pulse Rate 114 H 113 H 112 H Respiratory Rate 19 18 18 Blood Pressure Pulse Oximetry 87 L 88 L 88 L Oxygen Delivery Method Fraction of Inspired Oxygen 05/22/25 07:30 05/22/25 07:40 05/22/25 07:50 Temperature Pulse Rate 109 H 107 H 112 H Respiratory Rate 20 20 24 Blood Pressure Pulse Oximetry 87 L 88 L 86 L Oxygen Delivery Method Fraction of Inspired Oxygen 05/22/25 07:53 05/22/25 08:00 05/22/25 08:10 Temperature Pulse Rate 111 H 110 H 118 H Respiratory Rate 18 21 27 H Blood Pressure Pulse Oximetry 92 92 84 L Oxygen Delivery Method Heated High Flow Fraction of Inspired Oxygen 70 05/22/25 08:20 Temperature Pulse Rate 114 H Respiratory Rate 21 Blood Pressure Pulse Oximetry 90 L Oxygen Delivery Method Fraction of Inspired Oxygen Fraction of Inspired Oxygen 70 SaO2/FiO2 Ratio 128 Oxygen Delivery Method Heated High Flow Oxygen Flow Rate 50 Const General: cooperative and comfortable Resp Effort & Inspection: normal respiratory effort and able to speak in complete sentences Cardio Rate: tachycardic Rhythm: regular rhythm Neuro General: patient alert, patient awake and patient oriented x3 Other: RASS 0, clear speech Quality TeleICU VTE Deep Vein Thrombosis/Pulmonary Embolism Present on Admission: No Assessment & Plan Assessment and plan (1) Acute hypoxic respiratory failure: Status: Acute Plan: -Wean HFNC as tolerated -Continue diuresis given elevated BNP in 800s; target negative 1 to 2 L/day-->ordered Lasix 40 mg IVP x 1; follow up 2D echo -Check MRSA status -Continue vancomycin/levofloxacin -Continue Duonebs -Continue prednisone 10 mg/day (2) Cellulitis of left leg: Status: Acute Plan: -See antibiotics/MRSA screen above (3) Hyperglycemia: Status: Acute Plan: -Increase glargine to 14 units QHS given suboptimal control Time-Based Coding :: I spent a total of 35 minutes of aggregate critical care time on this patient's care today; this time includes chart review, obtaining history, exam, reviewing outside data, placing orders, documenting exam and treatment plan, and counseling patient and excludes all procedural time.
[2025-05-22 10:05] LABS: Blood Urea Nitrogen 24 mg/dL (9-20); Calcium 8.8 mg/dL (8.4-10.2); Carbon Dioxide 18 mmol/L (22-32); Chloride 97 mmol/L (98-107); Estimated Glomerular Filt Rate > 60 mL/min (>60); Glucose 234 mg/dL (70-99); HEMOLYSIS < 15 (0-50); Potassium 4.2 mmol/L (3.4-5.1); Sodium 127 mmol/L (137-145)
[2025-05-22] MEDS: FUROSEMIDE 40 MG/4 ML VIAL IV (10:50)
[2025-05-22] MEDS: VANCOMYCIN TROUGH 1 REQUEST MISC (10:51)
[2025-05-22 12:55] LABS: MRSA (Nasal) PCR NOT DETECTED (Not Detect)
--- NOTE | 2025-05-22 14:40 | ST.IPDYTX ---
Visit Care Team Role Provider Type Ricardo Victoria MD Primary Care Provider Physician Specialty: Family Practice Address: [address] [place] [address], [address] Email: [email or web address] Shante Ocampo MD Other Providers Physician Specialty: Medical Address: Phone: Fax: Email: Yesi Courtney MD Other Providers Physician Specialty: Medical Address: Phone: Fax: Email: JARON Handley Other Providers Registered Nurse Specialty: Nursing Address: Phone: Fax: Email: Sia Ramirez MD Other Providers Physician Specialty: Anesthesiology Address: Phone: Fax: Email: JARON Marcano Other Providers Registered Nurse Specialty: Nursing Address: [address], [place], [address] Fax: Email: Maryanne Celeste LPN Other Providers Licensed Practical Nurse Specialty: Nursing Address: [address], [place], [address] Phone: Fax: Email: Mika Hamilton MD Other Providers Physician Specialty: Medical Address: [facility] [place], [address] Phone: Fax: Email: JARON Anna Other Providers Registered Nurse Specialty: Nursing Address: [address] [place] [address], [address] Fax: Email: Gail Elaine DO Other Providers Physician Specialty: Internal Medicine Address: [address] [place] [address], [address] Phone: Fax: Email: Cleopatra Noonan MD Other Providers Physician Specialty: Internal Medicine Address: Phone: Fax: Email: JARON Sampson Other Providers Registered Nurse Specialty: Nursing Address: [address], [place], [address] Fax: Email: Maico Noonan MD Other Providers Physician Specialty: Medical Address: Phone: Fax: Email: Davon Shahid MD Other Providers Physician Specialty: Internal Medicine Address: [address] [place] [address], [address] Fax: Email: Sue Woods DO Other Providers Physician Specialty: Internal Medicine Address: [address] [place], [address] Phone: Fax: Email: Leia Dubose MD Other Providers Physician Specialty: Anesthesiology Internal Medicine Address: [address] [place] [address], [address] Fax: Email: [email or web address] JARON Templeton Other Providers Advanced Nursing Professor Specialty: Nursing Address: [address], [place], [address] Fax: Email: Kenny Forde DO Other Providers Physician Specialty: Hospitalist Address: Phone: Fax: Email: Fernanda Aaron MD Other Providers Physician Specialty: Internal Medicine Address: [address] [place], [address] Phone: Fax: Email: [email or web address] Sylvester MD Other Providers Physician Specialty: Internal Medicine Address: Phone: Fax: Email: Deyvi Westbrook MD Other Providers Physician Specialty: Pulmonology Address: [address] , [place], [address] Phone: Fax: Email: [email or web address] Eileen Vanegas MD Other Providers Physician Specialty: Anesthesiology Address: [address], [place], [address] Fax: Email: Subhash Bhatt MD Other Providers Physician Specialty: Medical Address: Phone: Fax: Email: Talat Hdez MD Other Providers Physician Specialty: Internal Medicine Address: [address] [place], [address] Phone: Fax: Email: Juancarlos Anderson MD Other Providers Physician Specialty: Medical Address: [address], [address] Phone: Fax: Email: Nani Bae MD Other Providers Physician Specialty: Medical Address: Phone: Fax: Email: JARON Rehman Other Providers Advanced Nursing Professor Specialty: Nursing Address: [address] [place] [address], [address] Phone: Fax: Email: Eri Gotti Other Providers Physician Specialty: Medical Address: Phone: Fax: Email: JARON Mcmanus Other Providers Advanced Nursing Professor Specialty: Nursing Address: [address], [place], [address] Fax: Email: Claudine Ortiz MD Other Providers Physician Specialty: Internal Medicine Address: Phone: Fax: Email: Sohail Govea MD Other Providers Physician Specialty: Internal Medicine Address: [address], [place], [address] Fax: Email: Augustus Levin MD Other Providers Physician Specialty: Hospitalist Address: [address] [place] [address], [address] Phone: Fax: Email: David Hill MD Other Providers Physician Specialty: Anesthesiology Address: Phone: Fax: Email: JARON Llanos Other Providers Registered Nurse Specialty: Nursing Address: [address] [place] [address], [address] Phone: Fax: Email: JARON Hernandez Emergency Provider Advanced Nursing Professor Referring Provider Specialty: Emergency Medicine Address: [facility] [place], [address] Email: [email or web address] Welch MD Attending Provider Physician Other Providers Specialty: Internal Medicine Address: [address] [place] [address], [address] Email: [email or web address] Maico Rojas MD Admit Provider Physician Specialty: Internal Medicine Address: [address] [place] [address], [address] Fax: Email: [email or web address] 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 Pt denies any swallowing difficulties. Nurse present during session. ST communicated with Pt MD's recommendations to hold off on MBS at this time d/t the Pt's medical status. Pt verbalized understanding. Pt with lunch tray on tray table in front of him upon ST entering room. Treatment Liquids Trialed Thin (IDDSI 0) Solids Trialed Regular (IDDSI 7) Administration Type Straw Oral Strategies Upright at 90 degrees Treatment Activities Assessment of swallow function with PO trials of regular solids and thin liquids in order to determine safest and most efficient least restrictive diet The IDDSI Framework Protocol: IDDSI.1 Assessment Patient Response to Excellent Treatment Rehab Potential Excellent Assessment of Pt consumed some macaroni and cheese and a cheeseburger Improvement without the bun and thin water via straw. He was able to feed self, however slow with hand tremor. High flow nasal cannula in place during meal. Pt with open mouth posture while eating d/t him breathing through mouth during meals d/t nasal cannula. Pt with small bites and slow rate with all trials, adequate bolus formation and control, minimal oral stasis, no overt s/s of aspiration with all PO trials such as coughing or choking. For thin water via straw, Pt exhibited adequate suction, good oral acceptance and containment, clear vocal quality, no overt s/s of aspiration. ST recommends Pt participate in MBS when cleared to do so. ST recommends continuation of current diet. Recommendations Recommendations Continue Current Diet Liquids Order Thin (IDDSI 0) Diet Order Regular (IDDSI 7) Medication As Tolerated Recommendations
--- NOTE | 2025-05-22 15:16 | CM.DPNOTE ---
DCP note DOCUMENT SPECIALIST reviewed EMR per RN, pt on heated high flow. may likely need to be intubated. no new CM needs at this time. potentially per spouse has a caregiver at home? P: anticiapte return home with spouse when medically stable. will continue to follow closely in case any DCP needs should arise Ethel Reich, OLIVER
[2025-05-22 15:56] LABS: Allen Test for ABG Passed? Negative; Blood Gas Collection Site Right Radial; Delivery System High Flow Nas Cannul; HCO3 ABG 20 mmol/L (23-27); Oxygen Saturation ABG 85 % (95-100); PCO2 ABG 36.5 mmHg (35-45); PO2 ABG 52 mmHg (80-100); TCO2 ABG 19 mmol/L (23-27)
[2025-05-22] MEDS: VANCOMYCIN 2,000 MG/400 ML PIGGYBACK 200 MG IV (17:50)
--- NOTE | 2025-05-22 20:13 | PM.ICURNDS ---
- Date Patient Seen: 05/22/25 Time Patient Seen: 20:14 :: This patient was seen via real time interactive two-way audiovisual telecommunication. Note: patient seen on camera chart/labs/imaging reviewed sleeping on high flow, no distress no acute change per nurse would do precedex over benzos for agiation and low threhold for intubatoin consider pulmonary eval in am please call eICU if condition changes total ccm time 20 mins
[2025-05-22] MEDS: PANTOPRAZOLE DR 20 MG TABLET PO (20:20)
[2025-05-22] MEDS: INSULIN GLARGINE 100 UNIT/ML 3ML PEN 14 UNIT SUBCUT (21:12)
[2025-05-23] VITALS (55 sets, daily range): BP systolic 91–151; BP diastolic 50–73; PULSE 96–119; RESP 10–35; TEMP 32–38.2; O2SAT 76–98
[2025-05-23] MEDS: ALBUTEROL/IPRATROPIUM 3 ML AMPUL INH ×5 (01:38→19:34)
[2025-05-23] MEDS: dexmedeTOMIDine in 0.9 % NaCL 400 MCG/100 ML PLAST..BAG 5.965 MCG IV (03:21)
[2025-05-23] MEDS: HEPARIN 5,000 UNIT/ML VIAL 5000 UNIT SUBCUT ×2 (05:53→15:24)
--- NOTE | 2025-05-23 06:37 | PC.NURSE ---
pt initially on HHF with sats in the 80s, pt not able to keep mouth closed when sleeping on HHF, RT placed him on BIPAP at HS after med pass, pt requesting multiple breaks from mask for drinks and attempting to stand up for back pain relief, pt desats to 70s off of bipap and very SOBOE, HR 120s and BP 150s/80s, RR 20-30s,EICU injection molding operator update and orders recieved to start precedex, precedex started and pt became more relaxed in the recliner, HR in 100s, BP lowered, RR 15-20, and pt more compliant with mask, call andre within reach, meds and labs as ordered, care on going
[2025-05-23 07:34] LABS: Add Manual Diff / Slide Review NO; Hematocrit 32.4 % (41-53); Hemoglobin 10.5 g/dL (13.5-17.5); Lymphocytes Absolute Auto 500 /uL (1100-4500); Mean Corpuscular HGB Conc 32.6 % (30-36); Mean Corpuscular Hemoglobin 25.9 PG (26-34); Mean Corpuscular Volume 79.6 fL (80-100); Platelet Count 212 X10^3/uL (150-400)
[2025-05-23 07:49] LABS: Blood Urea Nitrogen 36 mg/dL (9-20); Calcium 8.6 mg/dL (8.4-10.2); Carbon Dioxide 17 mmol/L (22-32); Chloride 99 mmol/L (98-107); Estimated Glomerular Filt Rate 52 mL/min (>60); Glucose 213 mg/dL (70-99); HEMOLYSIS < 15 (0-50); Potassium 4.1 mmol/L (3.4-5.1); Sodium 127 mmol/L (137-145)
--- NOTE | 2025-05-23 08:40 | DI.RAD.S_ITS ---
PROCEDURE: XR CHEST 1V INDICATIONS: pna pulmonary edema TECHNIQUE: One view of the chest was acquired. COMPARISON: [facility], CR, XR CHEST 1V, 05/21/2025, 9:36. FINDINGS: Surgical changes and devices: None. Lungs and pleura: Extensive airspace opacities are again noted throughout bilateral lung johnson. No pleural effusions or pneumothorax. Mediastinum: Mediastinal contours appear normal. Heart size is enlarged. Bones and chest wall: No suspicious bony lesions. Overlying soft tissues appear unremarkable. IMPRESSION: Extensive bilateral airspace opacities suggestive of extensive pulmonary infiltrates versus pulmonary edema. No pleural effusion or pneumothorax. Dictated by: Juice Hankins M.D. on 05/23/2025 at 9:13 Approved by: Juice Hankins M.D. on 05/23/2025 at 9:14
[2025-05-23] MEDS: BUDESONIDE 0.5 MG/2 ML NEB INH ×2 (08:49→19:34)
--- NOTE | 2025-05-23 09:19 | P.TELICUPN_ITS ---
Subjective Subjective IF CAMERA ACTIVATED, patient seen via real-time interactive audiovisual communication: Camera activated Consent obtained for tele-sand mixer care: Yes Patient Location: ICU Provider location (State): [place] Other participants/roles: RN Interval history: Following up on this 55 yo M w/ acute hypoxic respiratory failure due to postulated CHF exacerbation +/- pneumonia as well as LLE cellulitis. Was on bipap overnight, required low dose precedex gtt for anxiety- Turned precedex off this am, as patient too somnolent- Transitioned to high flow NC 60% /50 L this am, sat 93%, planning to obtain abg on these settings Cr uptrending with diuresis. diuretic held today cxr with continued bilateral opacities MRSA neg Current Medications Current Medications Medications: Home Medications epinephrine 0.3 mg/0.3 mL injection, auto-injector (EpiPen 2-Nura) 0.3 mg (0.3 mL) IM SEE INSTRUCTIONS #2 ea 07/17/19 [Rx Confirmed 05/18/25] spironolactone 25 mg tablet 25 mg PO BID 12/28/23 [History Confirmed 05/18/25] furosemide 40 mg tablet See Rx Instructions .Route .COMPLEX PRN Swelling 06/10/24 [History Confirmed 05/18/25] ipratropium 0.5 mg-albuterol 3 mg (2.5 mg base)/3 mL nebulization soln 3 ml INH RTQ6HR PRN Shortness Of Breath #120 doses 06/12/24 [Rx Confirmed 05/18/25] nicotine 14 mg/24 hr daily transdermal patch (Nicoderm CQ) 1 patch transdermal DAILY #14 ea 06/12/24 [Rx Confirmed 05/18/25] ondansetron 4 mg disintegrating tablet 4 mg PO Q8H PRN nausea and vomiting #14 tabs 01/24/25 [Rx Confirmed 05/18/25] albuterol sulfate 90 mcg/actuation aerosol inhaler See Rx Instructions .Route .COMPLEX #8.5 grams 01/31/25 [Rx Confirmed 05/18/25] ferrous gluconate 324 mg (37.5 mg iron) tablet 324 mg PO DAILY #90 tabs 01/31/25 [Rx Confirmed 05/18/25] finasteride 5 mg tablet 5 mg PO DAILY #90 tabs 01/31/25 [Rx Confirmed 05/18/25] losartan 100 mg tablet 100 mg PO DAILY #90 tabs 01/31/25 [Rx Confirmed 05/18/25] prednisone 10 mg tablet 10 mg PO BEDTIME #90 tabs 01/31/25 [Rx Confirmed 05/18/25] cyclobenzaprine 10 mg tablet 10 mg PO TID PRN muscle spasm #180 tabs 02/01/25 [Rx Confirmed 05/18/25] gabapentin 600 mg tablet 1,200 mg (2 x 600 mg) PO TID #240 tabs 02/27/25 [Rx Confirmed 05/18/25] lidocaine 5 % topical patch (Lidoderm) 1 patch topical DAILY #30 ea 02/27/25 [Rx Confirmed 05/18/25] metformin 500 mg tablet See Rx Instructions .Route .COMPLEX #360 tabs 03/07/25 [Rx Confirmed 05/18/25] diazepam 2 mg tablet 4 mg (2 x 2 mg) PO BEDTIME PRN sleep #60 tabs 04/10/25 [Rx Confirmed 05/18/25] tirzepatide 10 mg/0.5 mL subcutaneous pen injector (Mounjaro) 10 mg (0.5 mL) SUBCUT QWEEK #2 mL 04/26/25 [Rx Confirmed 05/18/25] amlodipine 10 mg tablet 10 mg PO DAILY #90 tabs 05/07/25 [Rx Confirmed 05/18/25] mometasone-formoterol HFA 200 mcg-5 mcg/actuation aerosol inhaler (Dulera) See Rx Instructions .Route .COMPLEX #13 grams 05/07/25 [Rx Confirmed 05/18/25] oxycodone-acetaminophen 10 mg-325 mg tablet (Percocet) See Rx Instructions PO .COMPLEX PRN pain #180 tabs 05/10/25 [Rx Confirmed 05/18/25] mupirocin 2 % topical ointment 1 applic topical TID #15 grams 05/14/25 [Rx Confirmed 05/18/25] nicotine (polacrilex) 2 mg buccal mini lozenge 2 mg buccal Q2-4H PRN nicotine cravings #81 ea 05/16/25 [Rx Confirmed 05/18/25] nicotine 14 mg/24 hr daily transdermal patch 1 patch transdermal DAILY #28 ea 05/16/25 [Rx Confirmed 05/18/25] trazodone 150 mg tablet 150 mg PO BEDTIME PRN insomnia #30 tabs 05/16/25 [Rx Confirmed 05/18/25] beclomethasone dipropionate 80 mcg/actuation HFA breath activated aerosol (Qvar RediHaler) See Rx Instructions .Route .COMPLEX 05/18/25 [History Confirmed 05/18/25] buprenorphine 2 mg-naloxone 0.5 mg sublingual film (Suboxone) See Rx Instructions buccal .COMPLEX #30 ea 05/18/25 [Rx Confirmed 05/18/25] tiotropium bromide 18 mcg capsule with inhalation device (Spiriva with HandiHaler) See Rx Instructions .Route .COMPLEX 05/18/25 [History Confirmed 05/18/25] venlafaxine 75 mg tablet,extended release 24 hr 25 mg PO DAILY 05/18/25 [History Confirmed 05/18/25] Visit Medications (administered) Generic Name Dose Route Start Last Admin Trade Name Freq PRN Reason Stop Dose Admin Acetaminophen 650 mg 05/19/25 20:22 05/20/25 00:08 Acetaminophen 325 Mg Tablet PO 650 mg Q4H PRN Administration Fever/Mild Pain (1-3) Albuterol/Ipratropium 3 ml 05/18/25 19:00 05/23/25 08:49 Albuterol/Ipratropium 3 Ml Ampul INH 3 ml [id number] BC Administration Amlodipine Besylate 10 mg 05/19/25 09:00 05/23/25 08:50 Amlodipine 5 Mg Tablet PO Not Given DAILY BC Budesonide 0.5 mg 05/18/25 20:00 05/23/25 08:49 Budesonide 0.5 Mg/2 Ml Neb INH 0.5 mg RTBID BC Administration Cyclobenzaprine HCl 10 mg 05/18/25 16:56 05/22/25 20:19 Cyclobenzaprine 10 Mg Tablet PO 10 mg TID PRN Administration Muscle Spasm Diazepam 4 mg 05/18/25 16:56 05/22/25 23:45 Diazepam 2 Mg Tablet PO 4 mg BEDTIME PRN Administration Sleep Ferrous Sulfate 325 mg 05/19/25 09:00 05/22/25 09:31 Ferrous Sulfate 325 Mg Tablet PO 325 mg DAILY BC Administration Finasteride 5 mg 05/19/25 09:00 05/22/25 08:37 Finasteride 5 Mg Tablet PO 5 mg DAILY BC Administration Gabapentin 1,200 mg 05/18/25 17:00 05/22/25 20:20 Gabapentin 600 Mg Tablet PO 1,200 mg TID BC Administration Heparin Sodium (Porcine) 5,000 unit 05/22/25 14:00 05/23/25 05:53 Heparin 5,000 Unit/Ml Vial SUBCUT 5,000 unit Q8HR BC Administration Hydralazine HCl 25 mg 05/19/25 08:00 05/23/25 08:50 Hydralazine 25 Mg Tablet PO Not Given BIDWM BC Levofloxacin 750 mg in 150 mls @ 100 mls/hr 05/21/25 13:30 05/22/25 15:57 Levaquin IV Infused Q24H BC Infusion Vancomycin HCl/Dextrose 2,000 mg in 400 mls @ 200 mls/hr 05/22/25 18:00 05/22/25 19:50 Vancomycin IV Infused Q18H BC Infusion dexmedeTOMIDine in 0.9 % NaCL 400 mcg in 100 mls @ 5.965 mls/hr 05/23/25 03:15 05/23/25 08:51 Precedex IV 0.1 mcg/kg/hr TITRATE BC 2.982 mls/hr Protocol Titration 0.2 MCG/KG/HR Insulin Glargine 14 unit 05/22/25 09:48 05/22/25 21:12 Insulin Glargine 100 Unit/Ml 3ml Pen SUBCUT 14 unit BEDTIME BC Administration Insulin Human Lispro 0 unit 05/18/25 21:00 05/22/25 21:12 Insulin Lispro 100 Unit/Ml 3ml Vial SUBCUT 1 unit ACHS [facility] Administration Protocol Ipratropium [place] 0.5 mg 05/18/25 17:14 05/21/25 03:24 Ipratropium 0.5 Mg/2.5 Ml Neb INH 0.5 mg Q2H PRN Administration Shortness Of Breath Lidocaine 1 each 05/19/25 09:00 05/23/25 08:50 Lidocaine 5% Patch TOP Not Given DAILY [facility] Nicotine 14 mg 05/19/25 03:59 05/22/25 08:39 Nicotine 14 Patch TOP 14 mg DAILY BC Administration Buprenorphine- 1 mg 05/18/25 21:00 05/22/25 20:20 Naloxone [Suboxone] SL 1 mg 2-0.5 Mg Film TID BC Administration Oxycodone HCl 10 mg 05/18/25 17:40 05/22/25 23:49 Oxycodone Ir 10 Mg Tablet PO 10 mg Q4H PRN Administration Pain, Moderate (4-6) Pantoprazole Sodium 20 mg 05/20/25 21:00 05/22/25 20:[address] 20 Mg Tablet PO 20 mg 2100 BC Administration Prednisone 10 mg 05/22/25 09:00 05/22/25 08:37 Prednisone 5 Mg Tablet PO 10 mg DAILY BC Administration Sodium Chloride 10 ml 05/22/25 09:00 05/22/25 21:13 Sodium Chloride 0.9% Flush IV 10 ml BID BC Administration Trazodone HCl 150 mg 05/18/25 16:56 05/22/25 20:20 Trazodone 50 Mg Tablet PO 150 mg BEDTIME PRN Administration Insomnia Objective Labs 05/23/25 06:50 05/23/25 06:50 Labs: Laboratory Results - last 24 hr 05/22/25 05/22/25 05/22/25 09:39 10:45 11:48 WBC RBC Hgb Hct MCV MCH MCHC RDW Plt Count Neut % (Auto) Lymph % (Auto) [place] % (Auto) Eos % (Auto) Baso % (Auto) Neut # (Auto) Lymph # (Auto) [place] # (Auto) Eos # (Auto) Baso # (Auto) ABG Sample Site ABG pH ABG pCO2 ABG pO2 ABG HCO3 ABG Total CO2 ABG O2 Saturation ABG Base Excess Tanner Test O2 Delivery Device FiO2 % Sodium 127 L Potassium 4.2 Chloride 97 L Carbon Dioxide 18 L BUN 24 H Creatinine 1.35 H Estimated GFR > 60 BUN/Creatinine Ratio 17.8 Glucose 234 H POC Whole Bld Glucose 248 H Calcium 8.8 Ur Random Sodium Nasal Screen MRSA (PCR) Not detected Vancomycin Trough 22.8 H* 05/22/25 05/22/25 05/22/25 13:49 17:01 20:30 WBC RBC Hgb Hct MCV MCH MCHC RDW Plt Count Neut % (Auto) Lymph % (Auto) [place] % (Auto) Eos % (Auto) Baso % (Auto) Neut # (Auto) Lymph # (Auto) [place] # (Auto) Eos # (Auto) Baso # (Auto) ABG Sample Site Right radial ABG pH 7.35 ABG pCO2 36.5 ABG pO2 52 L ABG HCO3 20 L ABG Total CO2 19 L ABG O2 Saturation 85 L* ABG Base Excess -5.1 L Tanner Test Negative O2 Delivery Device High flow melissa cannul FiO2 % 40 % Sodium Potassium Chloride Carbon Dioxide BUN Creatinine Estimated GFR BUN/Creatinine Ratio Glucose POC Whole Bld Glucose 242 H 198 H Calcium Ur Random Sodium Nasal Screen MRSA (PCR) Vancomycin Trough 05/23/25 05/23/25 05/23/25 02:55 05:14 06:50 WBC 12.4 H RBC 4.07 L Hgb 10.5 L Hct 32.4 L MCV 79.6 L MCH 25.9 L MCHC 32.6 RDW 16.5 H Plt Count 212 Neut % (Auto) 89.0 H Lymph % (Auto) 4.1 L [place] % (Auto) 6.0 Eos % (Auto) 0.7 L Baso % (Auto) 0.2 Neut # (Auto) 13712 H Lymph # (Auto) 500 L [place] # (Auto) 700 Eos # (Auto) 100 Baso # (Auto) 0 ABG Sample Site ABG pH ABG pCO2 ABG pO2 ABG HCO3 ABG Total CO2 ABG O2 Saturation ABG Base Excess Tanner Test O2 Delivery Device FiO2 % Sodium 127 L Potassium 4.1 Chloride 99 Carbon Dioxide 17 L BUN 36 H Creatinine 1.56 H Estimated GFR 52 L BUN/Creatinine Ratio 23.1 H Glucose 213 H POC Whole Bld Glucose 216 H Calcium 8.6 Ur Random Sodium 26 L Nasal Screen MRSA (PCR) Vancomycin Trough 05/23/25 07:56 WBC RBC Hgb Hct MCV MCH MCHC RDW Plt Count Neut % (Auto) Lymph % (Auto) [place] % (Auto) Eos % (Auto) Baso % (Auto) Neut # (Auto) Lymph # (Auto) [place] # (Auto) Eos # (Auto) Baso # (Auto) ABG Sample Site ABG pH ABG pCO2 ABG pO2 ABG HCO3 ABG Total CO2 ABG O2 Saturation ABG Base Excess Tanner Test O2 Delivery Device FiO2 % Sodium Potassium Chloride Carbon Dioxide BUN Creatinine Estimated GFR BUN/Creatinine Ratio Glucose POC Whole Bld Glucose 210 H Calcium Ur Random Sodium Nasal Screen MRSA (PCR) Vancomycin Trough Exam Vital Signs (past 8 hours): - 05/23/25 01:30 05/23/25 01:39 05/23/25 02:00 Temperature Pulse Rate 119 H 102 H 115 H Respiratory Rate 26 H 22 22 Blood Pressure Pulse Oximetry 76 L 97 96 Oxygen Delivery Method High Flow Nasal Cannula Oxygen Flow Rate 50 Fraction of Inspired Oxygen 55 05/23/25 02:30 05/23/25 03:00 05/23/25 03:29 Temperature Pulse Rate 117 H 118 H 117 H Respiratory Rate 21 20 21 Blood Pressure Pulse Oximetry 96 98 97 Oxygen Delivery Method Oxygen Flow Rate Fraction of Inspired Oxygen 05/23/25 03:29 05/23/25 03:30 05/23/25 04:00 Temperature Pulse Rate 117 H 110 H Respiratory Rate 19 19 Blood Pressure 135/62 Pulse Oximetry 95 97 Oxygen Delivery Method Oxygen Flow Rate Fraction of Inspired Oxygen 05/23/25 04:00 05/23/25 04:00 05/23/25 04:00 Temperature Pulse Rate Respiratory Rate Blood Pressure 121/60 Pulse Oximetry Oxygen Delivery Method BiPAP Oxygen Flow Rate Fraction of Inspired Oxygen 50 05/23/25 04:30 05/23/25 05:00 05/23/25 05:00 Temperature Pulse Rate 107 H 106 H Respiratory Rate 18 18 Blood Pressure 113/59 L Pulse Oximetry 97 96 Oxygen Delivery Method Oxygen Flow Rate Fraction of Inspired Oxygen 05/23/25 05:13 05/23/25 05:13 05/23/25 05:30 Temperature Pulse Rate 115 H 109 H Respiratory Rate 20 20 Blood Pressure 104/57 L Pulse Oximetry 95 95 Oxygen Delivery Method Oxygen Flow Rate Fraction of Inspired Oxygen 05/23/25 06:00 05/23/25 06:00 05/23/25 06:00 Temperature 100.7 F H Pulse Rate 104 H Respiratory Rate 19 Blood Pressure 110/57 L Pulse Oximetry 96 Oxygen Delivery Method Oxygen Flow Rate Fraction of Inspired Oxygen 05/23/25 06:30 05/23/25 07:00 05/23/25 07:00 Temperature Pulse Rate 103 H 101 H Respiratory Rate 17 18 Blood Pressure 111/56 L Pulse Oximetry 96 96 Oxygen Delivery Method Oxygen Flow Rate Fraction of Inspired Oxygen 05/23/25 07:30 05/23/25 08:49 Temperature Pulse Rate 100 H 101 H Respiratory Rate 17 20 Blood Pressure Pulse Oximetry 97 92 Oxygen Delivery Method Heated High Flow Oxygen Flow Rate 50 Fraction of Inspired Oxygen 60 Fraction of Inspired Oxygen 60 SaO2/FiO2 Ratio 153 Oxygen Delivery Method Heated High Flow Oxygen Flow Rate 50 Narrative Exam Narrative: somnolent, but breathign non labored,- not tachypneic- wearing high flow NC- sat 93%, HR 100 SR on monitor Quality TeleICU VTE Deep Vein Thrombosis/Pulmonary Embolism Present on Admission: No Assessment & Plan Assessment and plan (1) Acute hypoxic respiratory failure: Status: Acute Plan: -Wean HFNC as tolerated -Hold diuresis today, given uptrending of cr past 2 days, elevated vanco level- - follow up 2D echo- has been done, but still not read -Check MRSA status- can consider d/c vanco if negative -try to obtain sputum sample if able- if no true allergy to pCN would broaden him to zosyn abx -Continue Duonebs -Continue prednisone 10 mg/day -repeat covid 19 r/o -pulm consult- if unable to obtain, consider transfer out to higher LOC -depending on echo may also need cardiology consult - continue to trend cxr, abg's, BNP (2) Cellulitis of left leg: Status: Acute Plan: -See antibiotics/MRSA screen above (3) Hyperglycemia: Status: Acute Plan: -continue to uptitrate long acting insulin PRN to maintain bg <180- -ISS (4) SCARLETT (acute kidney injury): Status: Acute Plan: hold lasix today- renally dose meds vanco level is high, dose adjust if too sleepy for urinal will need catheter placed for i/o Plan PPX: heparin SQ PPI- for GERD Time-Based Coding :: [34 min] spent with patient and on the chart (including review of chart, obtaining history, exam, reviewing outside data, placing orders, documenting exam and treatment plan, and counseling patient) on [05/23/25].
[2025-05-23 09:46] LABS: Procalcitonin 7.94 ng/mL (<0.5)
[2025-05-23] MEDS: INSULIN LISPRO 100 UNIT/ML 3ML VIAL SUBCUT ×5 (10:00→17:42)
[2025-05-23] MEDS: SODIUM CHLORIDE 0.9% FLUSH 10 ML IV (10:02)
[2025-05-23] MEDS: FERROUS SULFATE 325 MG TABLET PO (10:02)
[2025-05-23] MEDS: FINASTERIDE 5 MG TABLET PO (10:02)
[2025-05-23] MEDS: GABAPENTIN 600 MG TABLET 1200 MG PO ×2 (10:02→15:25)
[2025-05-23] MEDS: BUPRENORPHINE NALOXONE 1 EACH SL ×2 (10:03→15:25)
[2025-05-23] MEDS: NICOTINE 14 PATCH 14 MG TOP (10:03)
[2025-05-23 10:44] LABS: Allen Test for ABG Passed? Positive; Blood Gas Collection Site Left Radial; Delivery System HHFNC 50L; HCO3 ABG 21 mmol/L (23-27); Oxygen Saturation ABG 88 % (95-100); PCO2 ABG 40.5 mmHg (35-45); PO2 ABG 59 mmHg (80-100); TCO2 ABG 20 mmol/L (23-27)
[2025-05-23 10:49] LABS: Influenza A - CEPHEID Flu A NEGATIVE (NEGATIVE); Influenza B - CEPHEID Flu B NEGATIVE (NEGATIVE)
[2025-05-23 10:51] LABS: COVID-19 CEPHEID 4-PLEX PCR Negative (Negative)
[2025-05-23] MEDS: PIPERACILLIN/TAZO 4.5 GM in SODIUM CHLORIDE 0.9% 100 ML IV (12:57)
[2025-05-23] MEDS: methylPREDNISolone succ 125 MG/2 ML VIAL 60 MG IV ×2 (12:57→17:37)
--- NOTE | 2025-05-23 14:14 | SLP.IPNOTE ---
Pt not seen this date d/t ST recommending Pt have MBS when clinically able. Pt with no overt s/s of aspiration during bedside treatment, however cannot rule out silent aspiration without use of an instrumental.
--- NOTE | 2025-05-23 15:06 | DIET.CONS ---
Dietary Consultation Note Admission Date: 05/18/2025 14:19 Assessment: 55 y M admitted for resp failure/cellulitis. Dietitian screened for MNA. EMR reviewed, pt on Elevated BG, lantus is being titrated up per protocol, on prednisone. A1c 8.0%. Per PCP note review - pt on Mon[place]aro likely resulting in weight loss seen below. Low recorded PO intakes, 25-50%. DFM reviewed for meal composition. Ht: 177.8 cm Wt: 119.295 kg BMI: 37.7 UBW: 150 kg in 2022, 134-138 kg in 2023, 136.645 kg on 10/03/24 (-13% weight loss in 8 months, non-severe), 124.738 kg on 01/24/25 (-4% weight loss in 4 months, non-severe), 04/06/25 at 117.934 kg Last BM: 05/18/25 (05/18/25 15:12) MNA: 8 Sean Score: 15 Diet: 05/22/25 Breakfast Carbohydrate Consistent Diet Diet Modifications: Carbohydrate level: Large (4 CHO) Reflex DM orders: No Food Texture: Level 7 - Regular Liquid Consistency: Level 0 - Thin Nutrition Percent Meal Consumed 25% 05/22/25 18:06 Percent Meal Consumed 50% 05/22/25 13:00 Percent Meal Consumed 25% 05/22/25 09:30 Percent Meal Consumed 50% 05/21/25 18:00 Labs: RBC 4.07 X10^6/uL (4.5-5.9) L 05/23/25 06:50 Hgb 10.5 g/dL (13.5-17.5) L 05/23/25 06:50 Hct 32.4 % (41-53) L 05/23/25 06:50 Creatinine 1.56 mg/dL (0.66-1.25) H 05/23/25 06:50 Lactate 1.1 mmol/L (0.7-2.1) 05/20/25 14:30 NT-Pro-B Natriuret Pep 826 pg/mL (<125) H 05/21/25 04:44 Nutrition Diagnosis: Altered nutrition related lab values (A1c, BG) r/t endocrine dysfunction aeb A1c 8.0% Interventions: -Diet was changed to carb consistent 05/22 -Ensure max BID added to help supplement kcal/protein needs EER: 95g protein (1.2 g/kg of adjusted IBW per ICU) Monitoring/Evaluations: PO intakes, BG, f/u for DM educ when appropriate Electronically Signed by: Meena Stephenson 05/23/25 15:06 Clinical Dietitian [address] [id number]
--- NOTE | 2025-05-23 15:13 | P.PN_ITS ---
Subjective Subjective Date Patient Seen: 05/23/25 Interval history: Hospital course: 05/19: Patient is feeling better tolerating diet sodium improved to 128 leg has less pain 05/20: The patient is noted to be hypoxic this morning, with oxygen saturations of 85% on 6 L nasal cannula oxygen. He denies any cough, shortness breath or aspiration events but does note that he feels weak and lightheaded today. Feels his cellulitis has resolved. His sodium was 125. He had over 5 L of fluid intake yesterday. He was administered 40 of IV furosemide and a CT angiogram obtained which showed diffuse bilateral infiltrates worse on the left. He has a history of cervical myelopathy and has been determined to be a nonsurgical candidate. He denies dysphagia symptoms but states he has trouble swallowing pills sometimes. He continues on high-dose opioid therapy. He is seen with his partner at bedside. They are unaware of excessive sedation or aspiration events. 05/21: Stable on a combination of BiPAP at night and HFO2 during the day. 05/22: He was on BiPAP overnight, and is on high-flow this morning. He did desaturate requiring a transient increase in FiO2 but now as had lowered settings in his feeling relatively good. ICU team did add IV Lasix this morning and a blood gas for several hours from now to prove stability of ventilation on high-flow. He otherwise feels well in his still coughing, this is primarily dry. 05/23: Has been managed per ER ICU does now on heated high-flow at 50 L and 60% FiO2 sputum came back with Gram-negative rods and yeast antibiotics changed to Zosyn and Diflucan started on Solu-Medrol 60 and referred for transfer to a facility with pulmonology service A/P: 1. Cellulitis of left lower leg 5 days after cellulitis of the right hand; the hand improved with clindamycin however this other cellulitis of left leg appeared afterwards. * Vancomycin for MRSA coverage * Ciprofloxacin for Pseudomonas coverage - switch to Levoquin 05/21 (moxy not on formulary or obtainable). * Multiple allergies to cephalosporins and penicillins (reports of nausea)2. Hyponatremia with infection and while taking ibuprofen, spironolactone and losartan which could all inhibits sodium retention. 126 to 127. * Hold losartan spironolactone and ibuprofen until sodium normalizes (remains at 126). * Furosemide 40mg IV 05/20. * Daily monitoring, check Ur Na. 3. Bilateral pulmonary infiltrates (pneumonia), new onset 05/20 likely silent aspiration event * Probable aspiration related to cervical myelopathy, possibly related to chronic high dose opioid therapy * Transfer to ICU * Swallowing evaluation ([facility] 05/22). * Switch Ciprofloxacin to Levoquin 750 IV QD.4. Acute hypoxemic respiratory failure due to presumed aspiration. * ABG, RT consult * BiPAP/CPAP, possible intubation if worsening or refractory. High flow for periods of time as requested. 5. Dysphagia * Consult speech therapy, they felt he was low risk of aspiration but did recommend a modified barium study when he was improved clinically. * Wean chronic oxycodone dosing * Note he continues on chronic Suboxone therapy which may need to be adjusted Chronic Medical problems: * Chronic pain on chronic opiates * Tobacco use disorder * EMA (generalized anxiety disorder) * OCD (obsessive compulsive disorder) * 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 * Iron deficiency anemia * Chronic pain syndrome * Cervical stenosis of spinal canal * Hypertension * Hyperlipidemia * Varicose vein of leg * MyocarditisPLAN: -continue IV antibiotics. -check urine sodium. -elevate leg. -BiPAP as needed, wean FiO2 as able. -Ur Na DVT prophylaxis: * Subcutaneous heparinDisposition: * Anticipate prolonged hospitalization given onset of acute aspiration and hypoxemic respiratory failureCode status: * Full code. Care was reviewed with his partner Silvestre Croft at bedside who is his Surrogate decision maker. Exam Vital Signs (past 8 hours): - 05/23/25 07:30 05/23/25 07:56 05/23/25 07:56 Temperature Pulse Rate 100 H 100 H Respiratory Rate 17 21 Blood Pressure 104/57 L Pulse Oximetry 97 97 Oxygen Delivery Method Oxygen Flow Rate Fraction of Inspired Oxygen 05/23/25 08:00 05/23/25 08:00 05/23/25 08:30 Temperature Pulse Rate 100 H 99 H Respiratory Rate 18 19 Blood Pressure 99/50 L Pulse Oximetry 97 97 Oxygen Delivery Method Oxygen Flow Rate Fraction of Inspired Oxygen 05/23/25 08:49 05/23/25 09:00 05/23/25 09:00 Temperature Pulse Rate 101 H 101 H Respiratory Rate 20 20 Blood Pressure 102/55 L Pulse Oximetry 92 85 L Oxygen Delivery Method Heated High Flow Oxygen Flow Rate 50 Fraction of Inspired Oxygen 60 05/23/25 09:00 05/23/25 09:30 05/23/25 10:00 Temperature Pulse Rate 105 H Respiratory Rate 18 Blood Pressure 100/55 L Pulse Oximetry 90 L Oxygen Delivery Method Heated High Flow BiPAP Oxygen Flow Rate Fraction of Inspired Oxygen 05/23/25 10:00 05/23/25 10:28 05/23/25 10:30 Temperature Pulse Rate 98 H 99 H 101 H Respiratory Rate 19 20 21 Blood Pressure 100/55 L Pulse Oximetry 91 93 88 L Oxygen Delivery Method Heated High Flow Oxygen Flow Rate 50 Fraction of Inspired Oxygen 60 05/23/25 11:00 05/23/25 11:30 05/23/25 11:58 Temperature Pulse Rate 106 H 112 H Respiratory Rate 19 27 H Blood Pressure 103/73 Pulse Oximetry 90 L 91 Oxygen Delivery Method Oxygen Flow Rate Fraction of Inspired Oxygen 05/23/25 11:58 05/23/25 12:00 05/23/25 12:00 Temperature Pulse Rate 101 H 101 H Respiratory Rate 17 18 Blood Pressure 91/54 L Pulse Oximetry 92 92 Oxygen Delivery Method Oxygen Flow Rate Fraction of Inspired Oxygen 05/23/25 12:30 05/23/25 13:00 05/23/25 13:00 Temperature Pulse Rate 103 H 100 H Respiratory Rate 30 H 19 Blood Pressure Pulse Oximetry 94 91 Oxygen Delivery Method Heated High Flow BiPAP Oxygen Flow Rate Fraction of Inspired Oxygen 05/23/25 13:01 05/23/25 13:01 05/23/25 13:30 Temperature Pulse Rate 101 H 104 H Respiratory Rate 21 24 Blood Pressure 108/56 L Pulse Oximetry 91 92 Oxygen Delivery Method Oxygen Flow Rate Fraction of Inspired Oxygen 05/23/25 13:40 05/23/25 14:00 05/23/25 14:00 Temperature Pulse Rate 101 H 107 H Respiratory Rate 20 25 H Blood Pressure 103/56 L 122/52 L Pulse Oximetry 92 88 L Oxygen Delivery Method Heated High Flow Oxygen Flow Rate 50 Fraction of Inspired Oxygen 60 05/23/25 14:10 Temperature 99.1 F Pulse Rate Respiratory Rate Blood Pressure Pulse Oximetry Oxygen Delivery Method Oxygen Flow Rate Fraction of Inspired Oxygen Fraction of Inspired Oxygen 60 SaO2/FiO2 Ratio 148 Oxygen Delivery Method Heated High Flow Oxygen Flow Rate 50 Objective Labs 05/23/25 06:50 05/23/25 06:50 Labs: Laboratory Results - last 24 hr 09/06/0705/22/25 05/22/25 13:49 17:01 20:30 WBC RBC Hgb Hct MCV MCH MCHC RDW Plt Count Neut % (Auto) Lymph % (Auto) [place] % (Auto) Eos % (Auto) Baso % (Auto) Neut # (Auto) Lymph # (Auto) [place] # (Auto) Eos # (Auto) Baso # (Auto) ABG Sample Site Right radial ABG pH 7.35 ABG pCO2 36.5 ABG pO2 52 L ABG HCO3 20 L ABG Total CO2 19 L ABG O2 Saturation 85 L* ABG Base Excess -5.1 L Tanner Test Negative O2 Delivery Device High flow melissa cannul FiO2 % 40 % Sodium Potassium Chloride Carbon Dioxide BUN Creatinine Estimated GFR BUN/Creatinine Ratio Glucose POC Whole Bld Glucose 242 H 198 H Calcium Procalcitonin Ur Random Sodium SARS-CoV-2 (PCR) Influenza A (RT-PCR) Influenza B (RT-PCR) 05/23/25 05/23/25 05/23/25 02:55 05:14 06:50 WBC 12.4 H RBC 4.07 L Hgb 10.5 L Hct 32.4 L MCV 79.6 L MCH 25.9 L MCHC 32.6 RDW 16.5 H Plt Count 212 Neut % (Auto) 89.0 H Lymph % (Auto) 4.1 L [place] % (Auto) 6.0 Eos % (Auto) 0.7 L Baso % (Auto) 0.2 Neut # (Auto) 76944 H Lymph # (Auto) 500 L [place] # (Auto) 700 Eos # (Auto) 100 Baso # (Auto) 0 ABG Sample Site ABG pH ABG pCO2 ABG pO2 ABG HCO3 ABG Total CO2 ABG O2 Saturation ABG Base Excess Tanner Test O2 Delivery Device FiO2 % Sodium 127 L Potassium 4.1 Chloride 99 Carbon Dioxide 17 L BUN 36 H Creatinine 1.56 H Estimated GFR 52 L BUN/Creatinine Ratio 23.1 H Glucose 213 H POC Whole Bld Glucose 216 H Calcium 8.6 Procalcitonin 7.94 H Ur Random Sodium 26 L SARS-CoV-2 (PCR) Influenza A (RT-PCR) Influenza B (RT-PCR) 05/23/25 05/23/25 05/23/25 07:56 09:33 10:40 WBC RBC Hgb Hct MCV MCH MCHC RDW Plt Count Neut % (Auto) Lymph % (Auto) [place] % (Auto) Eos % (Auto) Baso % (Auto) Neut # (Auto) Lymph # (Auto) [place] # (Auto) Eos # (Auto) Baso # (Auto) ABG Sample Site Left radial ABG pH 7.33 L ABG pCO2 40.5 ABG pO2 59 L ABG HCO3 21 L ABG Total CO2 20 L ABG O2 Saturation 88 L ABG Base Excess -4.5 L Tanner Test Positive O2 Delivery Device Hhfnc 50l FiO2 % 60.0 % Sodium Potassium Chloride Carbon Dioxide BUN Creatinine Estimated GFR BUN/Creatinine Ratio Glucose POC Whole Bld Glucose 210 H Calcium Procalcitonin Ur Random Sodium SARS-CoV-2 (PCR) Negative Influenza A (RT-PCR) Flu a negative Influenza B (RT-PCR) Flu b negative 05/23/25 11:56 WBC RBC Hgb Hct MCV MCH MCHC RDW Plt Count Neut % (Auto) Lymph % (Auto) [place] % (Auto) Eos % (Auto) Baso % (Auto) Neut # (Auto) Lymph # (Auto) [place] # (Auto) Eos # (Auto) Baso # (Auto) ABG Sample Site ABG pH ABG pCO2 ABG pO2 ABG HCO3 ABG Total CO2 ABG O2 Saturation ABG Base Excess Tanner Test O2 Delivery Device FiO2 % Sodium Potassium Chloride Carbon Dioxide BUN Creatinine Estimated GFR BUN/Creatinine Ratio Glucose POC Whole Bld Glucose 180 H Calcium Procalcitonin Ur Random Sodium SARS-CoV-2 (PCR) Influenza A (RT-PCR) Influenza B (RT-PCR) [facility] Medical History Cervical stenosis of spinal canal Chronic pain syndrome EMA (generalized anxiety disorder) 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 Hyperlipidemia Hypertension Iron deficiency anemia Myocarditis OCD (obsessive compulsive disorder) Tobacco use disorder Varicose vein of leg Surgical History No pertinent past surgical history Social History marital status: unmarried,single household members: significant other lives independently: Yes occupational status: disabled Smoking Status: Current every day smoker alcohol intake: never substance use type: does not use Assessment & Plan Time-Based Coding :: [TOTAL MINUTES] spent with patient and on the chart (including review of chart, obtaining history, exam, reviewing outside data, placing orders, documenting exam and treatment plan, and counseling patient) on [DATE]. Quality VTE Deep Vein Thrombosis/Pulmonary Embolism Present on Admission: No
[2025-05-23] MEDS: PIPERACILLIN/TAZO 3.375 GM in SODIUM CHLORIDE 0.9% 100 ML IV (15:24)
[2025-05-23] MEDS: CYCLOBENZAPRINE 10 MG TABLET PO (16:07)
[2025-05-23] MEDS: FLUCONAZOLE 400 MG/200 ML PIGGYBACK 100 MG IV (17:38)
--- NOTE | 2025-05-23 18:19 | P.DS_ITS ---
History of Present Illness History of Present Illness Date Patient Seen: 05/23/25 Chief complaint: Left leg red and swollen Narrative: Chief complaint: Acute respiratory distress syndrome preceded by isolated Painful redness and swelling of left lower leg due to cellulitis History of present illness: 55-year-old with multiple chronic medical problems morbid obesity chronic venous insufficiency 5 days ago developed a hand cellulitis after a skin abrasion on his right forearm treated with oral clindamycin outpatient. The hand cellulitis seemed to improve but 5 days after developed this redness swelling and pain of his left lower leg. Today he developed temperature to 100.8 has been using Tylenol and ibuprofen to treat his fever Patient has multiple medication allergies In the emergency department: Labs reveal a sodium of 123, chloride of 89, ESR of 56 and CRP of 17.6. Left tib-fib x-ray was negative. Ultrasound for DVT was negative. Hospital course: 05/19: Patient is feeling better tolerating diet sodium improved to 128 leg has less pain 05/20: The patient is noted to be hypoxic this morning, with oxygen saturations of 85% on 6 L nasal cannula oxygen. He denies any cough, shortness breath or aspiration events but does note that he feels weak and lightheaded today. Feels his cellulitis has resolved. His sodium was 125. He had over 5 L of fluid intake yesterday. He was administered 40 of IV furosemide and a CT angiogram obtained which showed diffuse bilateral infiltrates worse on the left. He has a history of cervical myelopathy and has been determined to be a nonsurgical candidate. He denies dysphagia symptoms but states he has trouble swallowing pills sometimes. He continues on high-dose opioid therapy. He is seen with his partner at bedside. They are unaware of excessive sedation or aspiration events. 05/21: Stable on a combination of BiPAP at night and HFO2 during the day. Hypoxia escalated during the night 05/22: He was on BiPAP overnight, and is on high-flow this morning. He did desaturate requiring a transient increase in FiO2 but now as had lowered settings in his feeling relatively good. ICU team did add IV Lasix this morning and a blood gas for several hours from now to prove stability of ventilation on high-flow. He otherwise feels well in his still coughing, this is primarily dry. Arterial blood gas pH 7.35 pCO2 36.5 PO2 52 85% saturation Sodium 127 potassium 4.2 BUN 24 creatinine 1.35 Chest x-ray is an ARDS pattern 05/23: required BiPAP overnight but was switched over to heated high-flow. In the morning patient was at 40 L and 60% throughout the day patient developed progressive central cyanosis requiring increasing incrementally to 50 L and 60% FiO2 arterial blood gas was obtained Arterial blood gas pH 7.33 pCO2 40 PO2 59 bicarb 21 oxygen saturation 88 % Sodium 127 potassium 4.1 CO2 17 BUN 36 and creatinine 1.56 Chest x-ray some ARDS pattern Sputum showed Gram-positive rods and budding yeast patient given 400 mg of IV Diflucan and started on 60 mg q.6 of Solu-Medrol Case discussed with Dr. Michelle Arroyo in [place] and accepted in transfer patient will go by ALS on high-flow nasal cannula Physical exam: Awake alert conversant and interactive HEENT with has been periods of central cyanosis Marked diminished lung sounds bilaterally Heart sounds distant Abdomen benign Extremities no edema Minimal erythema of left lower extremity seems more chronic at this time Neurologic is nonfocal Assessment and plan: Acute respiratory distress syndrome with progressively increasing oxygen demand without pulmonology on-site * Change anti-infectives to Zosyn and Diflucan based on preliminary sputum culture * Continue high-flow 50 L at 60% FiO2 * Solu-Medrol 60 mg IV q.6 * Transfer to tertiary center for higher level of care * Avoid intubation if possible * Consider HIV testing Cellulitis of left lower leg 5 days after cellulitis of the right hand; the hand improved with clindamycin however this other cellulitis of left leg appeared afterwards suggesting development of resistance * Resolved Hyponatremia with infection and while taking ibuprofen, spironolactone and losartan which could all inhibits sodium retention * Hold Cecil ARB and sodium wasting diuretics Chronic Medical problems: * Chronic pain on chronic opiates * Tobacco use disorder * EMA (generalized anxiety disorder) * OCD (obsessive compulsive disorder) * 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 * Iron deficiency anemia * Chronic pain syndrome * Cervical stenosis of spinal canal * Hypertension * Hyperlipidemia * Varicose vein of leg * Myocarditis DVT prophylaxis: * Subcutaneous heparin Disposition: * Accepted in transfer to the ICU to the service of Dr. Martinez at [facility] in [place] 75 minutes were involved in the management of this patient including [id number] evaluation of the patient discussion and review with multiple specialists and intensivists Discharge Providers Provider Date of admission: 05/18/25 14:19 Discharge Date: 05/23/25 Primary care physician: Ricardo Victoria MD Consults: 05/20/25 13:05 Consult to Speech Therapy Evaluate & Treat Comment: aspiration/ MBS study Physician Instructions: Evaluate and treat 05/20/25 13:39 Consult to Tele-home economics extension worker Routine Comment: Consulting Provider: Jonathan Tele-intensivists Reason for consultation: Applied Anthropologist services Has provider been notified: No Discharge provider: Nicolás Rodriguez MD Exam Vital Signs (past 8 hours): - 05/23/25 10:28 05/23/25 10:30 05/23/25 11:00 Temperature Pulse Rate 99 H 101 H 106 H Respiratory Rate 20 21 19 Blood Pressure 100/55 L Pulse Oximetry 93 88 L 90 L Oxygen Delivery Method Heated High Flow Oxygen Flow Rate 50 Fraction of Inspired Oxygen 60 05/23/25 11:30 05/23/25 11:58 05/23/25 11:58 Temperature Pulse Rate 112 H 101 H Respiratory Rate 27 H 17 Blood Pressure 103/73 Pulse Oximetry 91 92 Oxygen Delivery Method Oxygen Flow Rate Fraction of Inspired Oxygen 05/23/25 12:00 05/23/25 12:00 05/23/25 12:30 Temperature Pulse Rate 101 H 103 H Respiratory Rate 18 30 H Blood Pressure 91/54 L Pulse Oximetry 92 94 Oxygen Delivery Method Oxygen Flow Rate Fraction of Inspired Oxygen 05/23/25 13:00 05/23/25 13:00 05/23/25 13:01 Temperature Pulse Rate 100 H 101 H Respiratory Rate 19 21 Blood Pressure Pulse Oximetry 91 91 Oxygen Delivery Method Heated High Flow BiPAP Oxygen Flow Rate Fraction of Inspired Oxygen 05/23/25 13:01 05/23/25 13:30 05/23/25 13:40 Temperature Pulse Rate 104 H 101 H Respiratory Rate 24 20 Blood Pressure 108/56 L 103/56 L Pulse Oximetry 92 92 Oxygen Delivery Method Heated High Flow Oxygen Flow Rate 50 Fraction of Inspired Oxygen 60 05/23/25 14:00 05/23/25 14:00 05/23/25 14:10 Temperature 99.1 F Pulse Rate 107 H Respiratory Rate 25 H Blood Pressure 122/52 L Pulse Oximetry 88 L Oxygen Delivery Method Oxygen Flow Rate Fraction of Inspired Oxygen 05/23/25 14:30 05/23/25 15:00 05/23/25 15:00 Temperature Pulse Rate 106 H 103 H Respiratory Rate 20 19 Blood Pressure 112/55 L Pulse Oximetry 89 L 86 L Oxygen Delivery Method Oxygen Flow Rate Fraction of Inspired Oxygen 05/23/25 15:30 05/23/25 15:51 05/23/25 16:00 Temperature Pulse Rate 108 H 96 H Respiratory Rate 20 16 Blood Pressure 124/59 L Pulse Oximetry 92 91 Oxygen Delivery Method Heated High Flow Oxygen Flow Rate Fraction of Inspired Oxygen 05/23/25 16:00 05/23/25 16:30 05/23/25 17:00 Temperature Pulse Rate 107 H 107 H Respiratory Rate 17 18 Blood Pressure Pulse Oximetry 92 88 L Oxygen Delivery Method Heated High Flow BiPAP Oxygen Flow Rate Fraction of Inspired Oxygen 05/23/25 17:00 05/23/25 17:00 05/23/25 17:12 Temperature Pulse Rate 108 H Respiratory Rate 24 Blood Pressure 113/56 L 113/56 L Pulse Oximetry 84 L Oxygen Delivery Method Oxygen Flow Rate Fraction of Inspired Oxygen 35 05/23/25 17:30 05/23/25 18:00 05/23/25 18:00 Temperature Pulse Rate 106 H 112 H Respiratory Rate 20 20 Blood Pressure 128/66 Pulse Oximetry 94 95 Oxygen Delivery Method Oxygen Flow Rate Fraction of Inspired Oxygen 05/23/25 18:10 Temperature Pulse Rate 115 H Respiratory Rate 20 Blood Pressure Pulse Oximetry 94 Oxygen Delivery Method Heated High Flow Oxygen Flow Rate 50 Fraction of Inspired Oxygen 60 Fraction of Inspired Oxygen 60 SaO2/FiO2 Ratio 156 Oxygen Delivery Method Heated High Flow Oxygen Flow Rate 50 Objective Labs 05/23/25 06:50 05/23/25 06:50 Labs: Laboratory Results - last 24 hr 05/22/25 05/23/25 05/23/25 20:30 02:55 05:14 WBC RBC Hgb Hct MCV MCH MCHC RDW Plt Count Neut % (Auto) Lymph % (Auto) [place] % (Auto) Eos % (Auto) Baso % (Auto) Neut # (Auto) Lymph # (Auto) [place] # (Auto) Eos # (Auto) Baso # (Auto) ABG Sample Site ABG pH ABG pCO2 ABG pO2 ABG HCO3 ABG Total CO2 ABG O2 Saturation ABG Base Excess Tanner Test O2 Delivery Device FiO2 % Sodium Potassium Chloride Carbon Dioxide BUN Creatinine Estimated GFR BUN/Creatinine Ratio Glucose POC Whole Bld Glucose 198 H 216 H Calcium Procalcitonin Ur Random Sodium 26 L SARS-CoV-2 (PCR) Influenza A (RT-PCR) Influenza B (RT-PCR) 05/23/25 05/23/25 05/23/25 06:50 07:56 09:33 WBC 12.4 H RBC 4.07 L Hgb 10.5 L Hct 32.4 L MCV 79.6 L MCH 25.9 L MCHC 32.6 RDW 16.5 H Plt Count 212 Neut % (Auto) 89.0 H Lymph % (Auto) 4.1 L [place] % (Auto) 6.0 Eos % (Auto) 0.7 L Baso % (Auto) 0.2 Neut # (Auto) 47510 H Lymph # (Auto) 500 L [place] # (Auto) 700 Eos # (Auto) 100 Baso # (Auto) 0 ABG Sample Site ABG pH ABG pCO2 ABG pO2 ABG HCO3 ABG Total CO2 ABG O2 Saturation ABG Base Excess Tanner Test O2 Delivery Device FiO2 % Sodium 127 L Potassium 4.1 Chloride 99 Carbon Dioxide 17 L BUN 36 H Creatinine 1.56 H Estimated GFR 52 L BUN/Creatinine Ratio 23.1 H Glucose 213 H POC Whole Bld Glucose 210 H Calcium 8.6 Procalcitonin 7.94 H Ur Random Sodium SARS-CoV-2 (PCR) Negative Influenza A (RT-PCR) Flu a negative Influenza B (RT-PCR) Flu b negative 05/23/25 05/23/25 05/23/25 10:40 11:56 17:12 WBC RBC Hgb Hct MCV MCH MCHC RDW Plt Count Neut % (Auto) Lymph % (Auto) [place] % (Auto) Eos % (Auto) Baso % (Auto) Neut # (Auto) Lymph # (Auto) [place] # (Auto) Eos # (Auto) Baso # (Auto) ABG Sample Site Left radial ABG pH 7.33 L ABG pCO2 40.5 ABG pO2 59 L ABG HCO3 21 L ABG Total CO2 20 L ABG O2 Saturation 88 L ABG Base Excess -4.5 L Tanner Test Positive O2 Delivery Device Hhfnc 50l FiO2 % 60.0 % Sodium Potassium Chloride Carbon Dioxide BUN Creatinine Estimated GFR BUN/Creatinine Ratio Glucose POC Whole Bld Glucose 180 H 284 H D Calcium Procalcitonin Ur Random Sodium SARS-CoV-2 (PCR) Influenza A (RT-PCR) Influenza B (RT-PCR) [facility] Medical History Cervical stenosis of spinal canal Chronic pain syndrome EMA (generalized anxiety disorder) 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 Hyperlipidemia Hypertension Iron deficiency anemia Myocarditis OCD (obsessive compulsive disorder) Tobacco use disorder Varicose vein of leg Surgical History No pertinent past surgical history Social History marital status: unmarried,single household members: significant other lives independently: Yes occupational status: disabled Smoking Status: Current every day smoker alcohol intake: never substance use type: does not use Discharge Plan Discharge Plan Patient Disposition: General Acute Hospital Other facility: [facility] Under care of provider: Dr. Martinez Discharge Data Primary Care Provider: Ricardo Victoria Quality VTE Deep Vein Thrombosis/Pulmonary Embolism Present on Admission: No
--- NOTE | 2025-05-23 18:33 | PC.NURSE ---
Addendum entered by Kay Oliva RN 05/23/25 19:29: Report given to [facility] receiving nurse. All questions answered. Original Note: Day Shift Note Patient initially on bipap this morning and very drowsy but awakened to touch and was able to answer questions. RT placed pt on heated HFNC 50L 60% FiO2 and precedex turned off. Pt remaining on heated high flow majority of shift with SpO2 90-94%, desatting with activity (such as urinal use) and 100% o2 flush utilized to keep SpO2 90 and above. Denies pain, denies nausea. This afternoon pt experiencing sustained desats at rest down to the low 80s and so placed on bipap for an hour before dinner, tolerated well with FIo2 35%, 26/06, sPo2 mid-90s. Currently awaiting transport time to [facility]. Partner Don updated and in room. Pt's home meds (suboxone and inhalers) retrieved from pharmacy and with pt belongings.
--- NOTE | 2025-05-23 19:38 | PC.NURSE ---
Addendum entered by Desirae Null RN 05/23/25 20:32: 2026 Patient off unit at this time. Belongings in possession. Patient transport with discharge paperwork. Addendum entered by Desirae Null RN 05/23/25 19:55: 1954 Transport and RT at the bedside. Report given to transport. Original Note: 1929 Report received from brandin FELDMAN. Patient AAO x's 4. Able to [facility]. Complaining of generalized pain 02/20 requesting pain medication. Patient awaiting transport to [facility]. Family at the bedside. Patient belongings in posession. 1939 Pain medication administered.
== END 2025-05-23 20:36 | disposition short-term general hospital (02) | DRG 871 ==
LOC: ED 11:22 → AC 14:20 → ICU 05-20 12:51
PROVIDERS: Anesthesiology Critical Care Medicine; Family Medicine; Hospitalist; Internal Medicine; Internal Medicine Critical Care Medicine; Admitting Provider Internal Medicine; Emergency Provider Registered Nurse; PCP Family Medicine; Referring Provider Registered Nurse; Visit Provider Internal Medicine
DX: A41.9 Sepsis, unspecified organism (principal); J18.9 Pneumonia, unspecified organism; J69.0 Pneumonitis due to inhalation of food and vomit; J80 Acute respiratory distress syndrome; L03.116 Cellulitis of left lower limb; E87.1 Hypo-osmolality and hyponatremia; L03.113 Cellulitis of right upper limb; G95.89 Other specified diseases of spinal cord; N17.9 Acute kidney failure, unspecified; F17.200 Nicotine dependence, unspecified, uncomplicated; I83.93 Asymptomatic varicose veins of bilateral lower extremities; R13.10 Dysphagia, unspecified; E66.01 Morbid (severe) obesity due to excess calories; I87.2 Venous insufficiency (chronic) (peripheral); R73.9 Hyperglycemia, unspecified; I50.9 Heart failure, unspecified; F41.9 Anxiety disorder, unspecified; Z88.0 Allergy status to penicillin; Z68.37 Body mass index [BMI] 37.0-37.9, adult
CPT/HCPCS: 36415; 36600; 71045; 71275; 73590; 80048; 80053; 80202; 82805; 82962; 83605; 83880; 84145; 84300; 85025; 85651; 86140; 87040; 87070; 87077; 87205; 87633; 87635; 87797; 92526; 92610; 93971; 94640; 94660; 99233; 99283; 99284; C8929; J0744; J1450; J1644; J1815; J1938; J1956; J2543; J2919; J3375; Q9957

== ENCOUNTER 2025-06-07 20:58 | Emergency (ER) | payer OTHER, SELFPAY ==
[2025-05-23 17:12] VITALS: PULSE 106; RESP 24; O2SAT 94
[2025-06-07 21:01] VITALS: BP 97/50; PULSE 109; RESP 20; TEMP 37.6; O2SAT 97; BMI 35.2
--- NOTE | 2025-06-07 21:09 | EKG_ITS ---
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
--- NOTE | 2025-06-07 21:09 | DI.RAD.S_ITS ---
PROCEDURE: XR CHEST 1V INDICATIONS: suspected sepsis TECHNIQUE: One view of the chest was acquired. COMPARISON: [facility], , XR CHEST 1V, 05/23/2025, 8:36. FINDINGS: Surgical changes and devices: None. Lungs and pleura: No pleural effusion or pneumothorax. Decreasing bilateral consolidations. Mediastinum: Mediastinal contours appear normal. Heart size is normal. Bones and chest wall: No suspicious bony lesions. Overlying soft tissues appear unremarkable. IMPRESSION: Compared to prior radiograph 05/23/2025, decreasing bilateral consolidations. Approved by: Kriss Perdue M.D.,Ph.D. on 06/07/2025 at 21:35
--- NOTE | 2025-06-07 21:23 | ED.WOUNDLAC ---
HPI - Wound/Laceration General Chief Complaint: Wound/Laceration Stated Complaint: dizzy, fever Time Seen by Provider: 06/07/25 21:09 Source: patient Mode of arrival: Wheelchair Related Data Home Medications ?Medication ?Instructions ?Recorded ?Confirmed spironolactone 25 mg tablet 25 mg PO BID 12/28/23 06/06/25 furosemide 40 mg tablet See Rx Instructions .Route 06/10/24 06/06/25 .COMPLEX PRN Swelling beclomethasone dipropionate 80 See Rx Instructions .Route .COMPLEX 05/18/25 06/06/25 mcg/actuation HFA breath activated aerosol (Qvar RediHaler) tiotropium bromide 18 mcg capsule See Rx Instructions .Route .COMPLEX 05/18/25 06/06/25 with inhalation device (Spiriva with HandiHaler) venlafaxine 75 mg tablet,extended 25 mg PO DAILY 05/18/25 06/06/25 release 24 hr Previous Rx's ?Medication ?Instructions ?Recorded epinephrine 0.3 mg/0.3 mL 0.3 mg (0.3 mL) IM SEE 07/17/19 injection, auto-injector (EpiPen INSTRUCTIONS #2 ea 2-Nura) ipratropium 0.5 mg-albuterol 3 mg 3 ml INH RTQ6HR PRN Shortness Of 06/12/24 (2.5 mg base)/3 mL nebulization Breath #120 doses soln nicotine 14 mg/24 hr daily 1 patch transdermal DAILY #14 ea 06/12/24 transdermal patch (Nicoderm CQ) ondansetron 4 mg disintegrating 4 mg PO Q8H PRN nausea and 01/24/25 tablet vomiting #14 tabs albuterol sulfate 90 mcg/actuation See Rx Instructions .Route 01/31/25 aerosol inhaler .COMPLEX #8.5 grams ferrous gluconate 324 mg (37.5 mg 324 mg PO DAILY #90 tabs 01/31/25 iron) tablet finasteride 5 mg tablet 5 mg PO DAILY #90 tabs 01/31/25 losartan 100 mg tablet 100 mg PO DAILY #90 tabs 01/31/25 prednisone 10 mg tablet 10 mg PO BEDTIME #90 tabs 01/31/25 cyclobenzaprine 10 mg tablet 10 mg PO TID PRN muscle spasm #180 02/01/25 tabs gabapentin 600 mg tablet 1,200 mg (2 x 600 mg) PO TID #240 02/27/25 tabs lidocaine 5 % topical patch 1 patch topical DAILY #30 ea 02/27/25 (Lidoderm) metformin 500 mg tablet See Rx Instructions .Route 03/07/25 .COMPLEX #360 tabs diazepam 2 mg tablet 4 mg (2 x 2 mg) PO BEDTIME PRN 04/10/25 sleep #60 tabs tirzepatide 10 mg/0.5 mL 10 mg (0.5 mL) SUBCUT QWEEK #2 mL 04/26/25 subcutaneous pen injector (Mounjaro) amlodipine 10 mg tablet 10 mg PO DAILY #90 tabs 05/07/25 mometasone-formoterol HFA 200 See Rx Instructions .Route 05/07/25 mcg-5 mcg/actuation aerosol .COMPLEX #13 grams inhaler (Dulera) oxycodone-acetaminophen 10 mg-325 See Rx Instructions PO .COMPLEX 05/10/25 mg tablet (Percocet) PRN pain #180 tabs mupirocin 2 % topical ointment 1 applic topical TID #15 grams 05/14/25 nicotine (polacrilex) 2 mg buccal 2 mg buccal Q2-4H PRN nicotine 05/16/25 mini lozenge cravings #81 ea nicotine 14 mg/24 hr daily 1 patch transdermal DAILY #28 ea 05/16/25 transdermal patch trazodone 150 mg tablet 150 mg PO BEDTIME PRN insomnia #30 05/16/25 tabs buprenorphine 2 mg-naloxone 0.5 mg See Rx Instructions buccal 05/18/25 sublingual film (Suboxone) .COMPLEX #30 ea Allergies Allergy/AdvReac Type Severity Reaction Status Date / Time clindamycin Allergy Intermediate Verified 06/06/25 10:12 cephalexin (CEPHALEXIN) Allergy Mild FACIAL Verified 06/06/25 10:12 SWELLING terbinafine (TERBINAFINE) Allergy Unknown Unknown Verified 06/06/25 10:12 nut - unspecified Allergy Anaphylaxis Verified 06/06/25 10:12 benralizumab (From Fasenra) AdvReac Severe SOB Verified 06/06/25 10:12 Penicillins (PENICILLINS) AdvReac Severe Facial/mouth Verified 06/06/25 10:12 numbness, mouth/lip swelling Cephalosporins AdvReac Intermediate Vomiting Verified 06/06/25 10:12 (CEPHALOSPORINS) Beta-Blockers AdvReac Mild ASTHMA Verified 06/06/25 10:12 (Beta-Adrenergic Bloc doxycycline (DOXYCYCLINE) AdvReac Mild HIVES Verified 06/06/25 10:12 nadolol (NADOLOL) AdvReac Mild AGGREVATES Verified 06/06/25 10:12 ASTHMA semaglutide (From Ozempic) AdvReac Mild CONSTIPATIO Verified 06/06/25 10:12 N Sulfa (Sulfonamide AdvReac Mild VOMITING Verified 06/06/25 10:12 Antibiotics) (SULFA (SULFONAMIDE ANTIBIOTICS)) Patient History Medical History Cervical stenosis of spinal canal Chronic pain syndrome EMA (generalized anxiety disorder) 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 Hyperlipidemia Hypertension Iron deficiency anemia Myocarditis OCD (obsessive compulsive disorder) Tobacco use disorder Varicose vein of leg Surgical History No pertinent past surgical history Social History marital status: unmarried,single household members: significant other lives independently: Yes occupational status: disabled alcohol intake: never substance use type: does not use tobacco type: cigarettes alcohol intake frequency: other Exam Initial Vital Signs Initial Vital Signs: Vital Signs Temperature 99.6 F 06/07/25 21:01 Pulse Rate 109 H 06/07/25 21:01 Respiratory Rate 20 06/07/25 21:01 Blood Pressure 97/50 L 06/07/25 21:01 Pulse Oximetry 97 06/07/25 21:01 Oxygen Delivery Method Room Air 06/07/25 21:01 Course Orders Ordered: ED Orders 06/07/25 21:09 XR chest 1V Stat Blood Culture Stat Complete Blood Count AUTO DIFF Stat Comprehensive Metabolic Panel Stat Lactate (Lactic Acid) Stat Lipase Stat PTT Partial Thromboplastin Emanuel Stat Procalcitonin Stat Prothrombin Time INR Stat EKG-12 Lead Stat RT Consult Eval and Treat NOW Sodium Chloride (Normal Saline 0.9%) 1,000 mls @ 1,000 mls/hr IV BOLUS ONE Stop: 06/07/25 22:08 Ondansetron HCl (Ondansetron 4 Mg/2 Ml Inj) 4 mg IV NOW PRN PRN Reason: Nausea And Vomiting Ondansetron HCl (Ondansetron 4 Mg Odt) 4 mg PO NOW PRN PRN Reason: Nausea And Vomiting Discontinued Medications Ceftriaxone Sodium 2,000 mg/ (Sodium Chloride) 100 mls @ 200 mls/hr IV NOW ONE Stop: 06/07/25 21:18 Vital Signs Vital signs: Vital Signs - 8 hr 06/07/25 21:01 Temperature 99.6 F Pulse Rate 109 H Respiratory Rate 20 Blood Pressure 97/50 L Pulse Oximetry 97 Oxygen Delivery Method Room Air Discharge Plan Departure Prescriptions: No Action mupirocin 2 % ointment 1 applic topical TID Qty: 15 0RF diazepam 2 mg tablet 4 mg PO BEDTIME PRN (Reason: sleep) Qty: 60 1RF trazodone 150 mg tablet 150 mg PO BEDTIME PRN (Reason: insomnia) Qty: 30 2RF nicotine 14 mg/24 hr patch 24 hour 1 patch transdermal DAILY Qty: 28 2RF Rx Instructions: remove one hour before bedtime nicotine (polacrilex) 2 mg mini lozenge 2 mg buccal Q2-4H PRN (Reason: nicotine cravings) Qty: 81 2RF albuterol sulfate 90 mcg/actuation HFA aerosol inhaler See Rx Instructions .ROUTE .COMPLEX Qty: 8.5 5RF Dose Instruction: inhale 2 puffs by mouth every 6 hours if needed for shortness of breath or wheezing Rx Instructions: inhale 2 puffs by mouth every 6 hours if needed for shortness of breath or wheezing ferrous gluconate 324 mg (37.5 mg iron) tablet 324 mg PO DAILY Qty: 90 3RF finasteride 5 mg tablet 5 mg PO DAILY Qty: 90 1RF Rx Instructions: take 1 tablet by mouth once daily losartan 100 mg tablet 100 mg PO DAILY Qty: 90 3RF prednisone 10 mg tablet 10 mg PO BEDTIME Qty: 90 3RF metformin 500 mg tablet See Rx Instructions .ROUTE .COMPLEX Qty: 360 1RF Rx Instructions: take 2 tablets by mouth twice a day with meals amlodipine 10 mg tablet 10 mg PO DAILY Qty: 90 1RF Rx Instructions: take 1 tablet by mouth once daily Dulera 200-5 mcg/actuation HFA aerosol inhaler See Rx Instructions .ROUTE .COMPLEX Qty: 13 6RF Dose Instruction: inhale 2 puffs by mouth and INTO THE LUNGS twice a day Rx Instructions: inhale 2 puffs by mouth and INTO THE LUNGS twice a day oxycodone-acetaminophen [Percocet] 10-325 mg tablet See Rx Instructions PO .COMPLEX PRN (Reason: pain) Qty: 180 0RF Rx Instructions: take 2 tablets by mouth every 4 hours if needed for pain buprenorphine-naloxone [Suboxone] 2-0.5 mg film See Rx Instructions buccal .COMPLEX Qty: 30 0RF Rx Instructions: place 1/2 strip/tab under side of tongue three times daily until you see provider. Patient under close supervision of PCP, specialist, and family preservation caseworker epinephrine [EpiPen 2-Nura] 0.3 mg/0.3 mL auto-injector 0.3 mg IM SEE INSTRUCTIONS Qty: 2 5RF spironolactone 25 mg tablet 25 mg PO BID cyclobenzaprine 10 mg tablet 10 mg PO TID PRN (Reason: muscle spasm) Qty: 180 3RF Rx Instructions: take 1 tablet by mouth three times a day if needed for SPASM(S) gabapentin 600 mg tablet 1,200 mg PO TID Qty: 240 3RF lidocaine [Lidoderm] 5 % adhesive patch,medicated 1 patch topical DAILY Qty: 30 2RF Rx Instructions: leave on most painful area for up to 12 hrs Mounjaro 10 mg/0.5 mL pen injector 10 mg SUBCUT QWEEK Qty: 2 0RF Rx Instructions: take for 4 weeks then switch to 12.5mg dosage furosemide 40 mg tablet See Rx Instructions .ROUTE .COMPLEX PRN (Reason: Swelling) Rx Instructions: 1-2 tabs as needed for swelling ipratropium-albuterol 0.5 mg-3 mg(2.5 mg base)/3 mL Solution For Nebulization 3 ml INH RTQ6HR PRN (Reason: Shortness Of Breath) Qty: 120 2RF nicotine [Nicoderm CQ] 14 mg/24 hr patch 24 hour 1 patch transdermal DAILY Qty: 14 2RF ondansetron 4 mg tablet,disintegrating 4 mg PO Q8H PRN (Reason: nausea and vomiting) Qty: 14 0RF tiotropium bromide [Spiriva with HandiHaler] 18 mcg capsule, w/inhalation device See Rx Instructions .ROUTE .COMPLEX Rx Instructions: inhale THE contents of 1 capsule in THE HANDIHALER once daily x2 puffs am and x2 puffs hs venlafaxine 75 mg tablet extended release 24hr 25 mg PO DAILY Qvar RediHaler 80 mcg/actuation HFA aerosol breath activated See Rx Instructions .ROUTE .COMPLEX Rx Instructions: inhale 2 puff by mouth every 12 hours Referrals: Ricardo Victoria MD [Primary Care Provider, Family Practice]
--- NOTE | 2025-06-07 21:24 | ED.SEPSIS ---
HPI - Sepsis General Chief Complaint: Wound/Laceration Mode of arrival: Wheelchair Source: patient Limitations: no limitations Evaluation Sepsis Screen: No Definite Risk Sepsis Infection Criteria Present: Suspected New Infection Narrative: 55-year-old male your diabetes, and chronic pain syndrome presents with evaluation for fever 101-102 at home for which he took Tylenol, feeling dizzy, confused, nauseated today but no blood in the stool or urine or vomiting blood. He was initially admitted for cellulitis and required blood transfusion and discharged from [facility] this past Wednesday whereby multiple subspecialities . Other than what is stated 14 point review of system is negative. 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 Well-developed patient, in mild distress. HEAD: Atraumatic. Normocephalic. EYES: Pupils equal round and reactive. Extraocular motions intact. No scleral icterus. No injection or drainage. ENT: Nose without bleeding, purulent drainage. Throat without erythema, tonsillar hypertrophy or exudate. Airway patent. NECK: Trachea midline. Non tender CARDIOVASCULAR: Regular rate and rhythm without murmurs, gallops, or rubs. RESPIRATORY: Clear to auscultation. Breath sounds equal bilaterally. No wheezes, rales, or rhonchi. GASTROINTESTINAL: Abdomen soft, non-tender, nondistended. EXTREMITIES: Left lower leg swelling warmth and redness below the left knee with minimal tenderness motor sensory intact +2 DP +2 PT cap refill less than 2 seconds BACK: Nontender without deformity or crepitance. No flank tenderness. NEURO: AOx3. SKIN: No rash or erythema of visible areas Initial Vital Signs Initial Vital Signs: Vital Signs Temperature 99.6 F 06/07/25 21:01 Pulse Rate 109 H 06/07/25 21:01 Respiratory Rate 20 06/07/25 21:01 Blood Pressure 97/50 L 06/07/25 21:01 Pulse Oximetry 97 06/07/25 21:01 Oxygen Delivery Method Room Air 06/07/25 21:01 Course Orders Ordered: Discontinued Medications Hydrocodone Bitart/Acetaminophen (Hydrocodone/Acet 5/325 Tablet) 2 tab PO NOW ONE Stop: 06/08/25 02:17 Last Admin: 06/08/25 02:48 Dose: 2 tab Documented By: ISRAEL Cyclobenzaprine HCl (Cyclobenzaprine 10 Mg Tablet) 10 mg PO NOW ONE Stop: 06/08/25 02:17 Last Admin: 06/08/25 02:49 Dose: 10 mg Documented By: ISRAEL Cyclobenzaprine HCl (Cyclobenzaprine 10 Mg Tablet) 10 mg PO NOW ONE Stop: 06/08/25 09:17 Last Admin: 06/08/25 09:44 Dose: 10 mg Documented By: MARY KATE Cyclobenzaprine HCl (Cyclobenzaprine 10 Mg Tablet) 10 mg PO NOW ONE Stop: 06/08/25 14:46 Last Admin: 06/08/25 14:59 Dose: 10 mg Documented By: MARY KATE Gabapentin (Gabapentin 600 Mg Tablet) 600 mg PO NOW ONE Stop: 06/08/25 02:17 Last Admin: 06/08/25 02:49 Dose: 600 mg Documented By: ISRAEL Gabapentin (Gabapentin 600 Mg Tablet) 1,200 mg PO TID BC Last Admin: 06/08/25 14:57 Dose: 1,200 mg Documented By: MARY KATE Admin: 06/08/25 09:42 Dose: 1,200 mg Documented By: MARY KATE Sodium Chloride (Normal Saline 0.9%) 1,000 mls @ 1,000 mls/hr IV BOLUS ONE Stop: 06/07/25 22:08 Last Infusion: 06/07/25 23:18 Dose: Infused Documented By: Admin: 06/07/25 21:45 Dose: 1,000 mls/hr Documented By: OTTONIEL Ceftriaxone Sodium 2,000 mg/ (Sodium Chloride) 100 mls @ 200 mls/hr IV NOW ONE Stop: 06/07/25 21:18 Last Infusion: 06/07/25 23:03 Dose: Infused Documented By: Admin: 06/07/25 22:12 Dose: 200 mls/hr Documented By: OTTONIEL Vancomycin HCl 1,750 mg/ (Sodium Chloride) 500 mls @ 250 mls/hr IV NOW ONE Stop: 06/07/25 22:45 Last Admin: 06/08/25 00:17 Dose: Not Given Documented By: OTTONIEL Vancomycin HCl (Vancomycin) 1,000 mg in 200 mls @ 200 mls/hr IV NOW ONE Stop: 06/08/25 01:00 Last Admin: 06/08/25 00:17 Dose: Not Given Documented By: OTTONIEL Vancomycin HCl (Vancomycin) 750 mg in 150 mls @ 150 mls/hr IV NOW ONE Stop: 06/08/25 01:01 Last Admin: 06/08/25 00:17 Dose: Not Given Documented By: OTTONIEL Vancomycin HCl/Dextrose (Vancomycin) 1,500 mg in 300 mls @ 200 mls/hr IV NOW ONE Stop: 06/08/25 01:33 Last Infusion: 06/08/25 01:54 Dose: Infused Documented By: Admin: 06/08/25 00:08 Dose: 200 mls/hr Documented By: ISRAEL Lactated Ringer's (Lactated Ringers) 1,000 mls @ 1,000 mls/hr IV BOLUS ONE Stop: 06/08/25 01:08 Last Infusion: 06/08/25 01:04 Dose: Infused Documented By: Admin: 06/08/25 00:25 Dose: 1,000 mls/hr Documented By: ISRAEL Losartan Potassium (Losartan 50 Mg Tablet) 100 mg PO NOW ONE Stop: 06/08/25 09:17 Last Admin: 06/08/25 09:50 Dose: Not Given Documented By: MARY KATE Nicotine (Nicotine 14 Patch) 14 mg TOP NOW ONE Stop: 06/08/25 09:17 Last Admin: 06/08/25 09:42 Dose: 14 mg Documented By: MARY KATE Ondansetron HCl (Ondansetron 4 Mg/2 Ml Inj) 4 mg IV NOW PRN PRN Reason: Nausea And Vomiting Ondansetron HCl (Ondansetron 4 Mg Odt) 4 mg PO NOW PRN PRN Reason: Nausea And Vomiting Oxycodone/Acetaminophen (Oxycodone/Acetaminophen 5/325 Tablet) 2 tab PO NOW ONE Stop: 06/08/25 09:15 Last Admin: 06/08/25 09:42 Dose: 2 tab Documented By: MARY KATE Oxycodone/Acetaminophen (Oxycodone/Acetaminophen 5/325 Tablet) 2 tab PO NOW ONE Stop: 06/08/25 14:46 Last Admin: 06/08/25 14:57 Dose: 2 tab Documented By: MARY KATE Vital Signs Vital signs: Vital Signs - 8 hr 06/07/25 21:01 06/07/25 22:16 06/07/25 22:17 Temperature 99.6 F Pulse Rate 109 H 98 H Respiratory Rate 20 Blood Pressure 97/50 L 90/53 L Pulse Oximetry 97 97 Oxygen Delivery Method Room Air 06/07/25 22:30 06/07/25 22:30 06/08/25 00:07 Temperature Pulse Rate 98 H 92 H Respiratory Rate Blood Pressure 94/51 L Pulse Oximetry 94 94 Oxygen Delivery Method 06/08/25 00:21 06/08/25 00:21 06/08/25 00:30 Temperature Pulse Rate 97 H Respiratory Rate Blood Pressure 115/58 L 105/55 L Pulse Oximetry 100 Oxygen Delivery Method 06/08/25 00:30 06/08/25 00:34 06/08/25 00:40 Temperature 99.1 F Pulse Rate 92 H 93 H 96 H Respiratory Rate 20 16 19 Blood Pressure 105/55 L Pulse Oximetry 100 88 L Oxygen Delivery Method 06/08/25 00:40 06/08/25 00:45 06/08/25 00:45 Temperature Pulse Rate 92 H Respiratory Rate 15 Blood Pressure 109/58 L 114/56 L Pulse Oximetry 98 Oxygen Delivery Method Sepsis Evaluation (ED) Triage Screening Sepsis Screen: No Definite Risk Level 1 - Infection Sepsis Infection Criteria Present: Suspected New Infection Response It is my opinion that this patient have a likely infectious etiology for meeting sepsis criteria: Does Fluid calculation based on 30 mL/kg within 1hr of criteria: ABW used Antibiotics initiated within 1 hr of Sepis dx: Yes Tissue Perfusion Reassessed within 6 hrs of infusion start time: No MDM - Sepsis Lab Data 06/08/25 07:03 06/07/25 21:35 Labs: Lab Results 06/07/25 06/08/2525 Range/Units 21:35 00:20 07:03 WBC 10.7 9.7 (4.5-11.0) X10^3/uL RBC 2.60 L 2.82 L (4.5-5.9) X10^6/uL Hgb 7.6 L 8.2 L (13.5-17.5) g/dL Hct 22.9 L 24.3 L (41-53) % MCV 87.9 86.3 (80-100) fL MCH 29.1 29.1 (26-34) PG MCHC 33.1 33.7 (30-36) % RDW 21.0 H 19.9 H (11.6-14.8) % Plt Count 216 205 (150-400) X10^3/uL Neut % (Auto) 78.1 H 73.0 (50-75) % Lymph % (Auto) 10.8 L 13.1 L (25-40) % [place] % (Auto) 9.3 11.9 (3-14) % Eos % (Auto) 0.9 L 1.1 L (2-4) % Baso % (Auto) 0.9 0.9 (0-2) % Neut # (Auto) 8300 H 7100 H (1040-5863) /uL Lymph # (Auto) 1200 1300 (9412-0118) /uL [place] # (Auto) 1000 H 1200 H (0-900) /uL Eos # (Auto) 100 100 (0-450) /uL Baso # (Auto) 100 100 (0-100) /uL RBC Morphology See below Anisocytosis 1+ H PT 12.4 (9.4-12.5) SECONDS INR 1.1 (0.9-1.3) APTT 30 (25.1-36.5) SECONDS Sodium 128 L (137-145) mmol/L Potassium 4.4 (3.4-5.1) mmol/L Chloride 96 L (98-107) mmol/L Carbon Dioxide 29 (22-32) mmol/L BUN 35 H (9-20) mg/dL Creatinine 1.24 (0.66-1.25) mg/dL Estimated GFR > 60 (>60) mL/min BUN/Creatinine Ratio 28.2 H (6-22) Glucose 199 H (70-99) mg/dL POC Whole Bld Glucose (70-99) mg/dL Lactate 1.6 (0.7-2.1) mmol/L Calcium 8.2 L (8.4-10.2) mg/dL Total Bilirubin 0.7 (0.2-1.3) mg/dL AST 21 (17-59) IU/L ALT 23 (<50) IU/L Alkaline Phosphatase 92 (38-126) U/L Total Protein 6.1 L (6.3-8.2) g/dL Albumin 3.3 L (3.5-5.0) g/dL Globulin 2.8 (1.7-4.1) g/dL Albumin/Globulin Ratio 1.2 (1.0-2.8) Lipase 26 (23-300) U/L Procalcitonin 0.551 H (<0.5) ng/mL Blood Type O Positive Antibody Screen Negative Crossmatch See Detail 06/08/25 Range/Units 08:55 WBC (4.5-11.0) X10^3/uL RBC (4.5-5.9) X10^6/uL Hgb (13.5-17.5) g/dL Hct (41-53) % MCV (80-100) fL MCH (26-34) PG MCHC (30-36) % RDW (11.6-14.8) % Plt Count (150-400) X10^3/uL Neut % (Auto) (50-75) % Lymph % (Auto) (25-40) % [place] % (Auto) (3-14) % Eos % (Auto) (2-4) % Baso % (Auto) (0-2) % Neut # (Auto) (1735-4584) /uL Lymph # (Auto) (7730-8720) /uL [place] # (Auto) (0-900) /uL Eos # (Auto) (0-450) /uL Baso # (Auto) (0-100) /uL RBC Morphology Anisocytosis PT (9.4-12.5) SECONDS INR (0.9-1.3) APTT (25.1-36.5) SECONDS Sodium (137-145) mmol/L Potassium (3.4-5.1) mmol/L Chloride (98-107) mmol/L Carbon Dioxide (22-32) mmol/L BUN (9-20) mg/dL Creatinine (0.66-1.25) mg/dL Estimated GFR (>60) mL/min BUN/Creatinine Ratio (6-22) Glucose (70-99) mg/dL POC Whole Bld Glucose 109 H (70-99) mg/dL Lactate (0.7-2.1) mmol/L Calcium (8.4-10.2) mg/dL Total Bilirubin (0.2-1.3) mg/dL AST (17-59) IU/L ALT (<50) IU/L Alkaline Phosphatase (38-126) U/L Total Protein (6.3-8.2) g/dL Albumin (3.5-5.0) g/dL Globulin (1.7-4.1) g/dL Albumin/Globulin Ratio (1.0-2.8) Lipase (23-300) U/L Procalcitonin (<0.5) ng/mL Blood Type Antibody Screen Crossmatch Point of Care Testing Stool Occult Blood Positive Urine Dip Bedside Urine Glucose 500 mg/dl Bedside Urine Bilirubin - Negative Bedside Urine Ketone - Negative Urine Specific [place] 1.010 Bedside Urine Occult Blood - Negative Bedside Urine pH 5.5 Bedside Urine Protein - Negative Bedside Urine Urobilinogen - Negative Bedside Urine Nitrite - Negative Bedside Urine Leukocytes - Negative Esterase Imaging Data CT scan - abdomen/pelvis: Radiologist's Impression: PROCEDURE: CT ANGIO ABD/PEL GI BLEED INDICATIONS: GI bleed TECHNIQUE: After the administration of intravenous contrast, 2.5 mm thick sections acquired from the diaphragm to the symphysis. 10 mm maximum-intensity projection (MIP) reformats were then acquired. For radiation dose reduction, the following was used: automated exposure control. COMPARISON: None. FINDINGS: Image Quality: Diagnostic. Abdominal aorta: No aortic aneurysm or evidence of acute aortic syndrome. Mesenteric arteries: Patent without hemodynamically significant stenosis. Renal arteries: Patent without hemodynamically significant stenosis. OTHER: Lower Chest: Lung consolidation. Calcified subcarinal lymph node likely representing healed granulomatous disease. Liver: No solid mass. Punctate calcified granulomas Gallbladder: No radiopaque gallstones or wall thickening. Biliary ducts: No biliary dilation. Pancreas: No ductal dilation. Spleen: Size is within normal limits. Adrenal Glands: No adrenal nodules. Kidneys and Ureters: No hydronephrosis. No solid mass. No complex renal cystic lesion which requires follow up. Stomach and Bowel: Normal colonic caliber, without significant wall thickening. Moderate fecal stasis. Peritoneum: No abnormal intraperitoneal fluid. No free air. Ventral Wall: No hernia. Abdominal Nodes: No retroperitoneal or mesenteric adenopathy by size criteria. Vessels: Aorta and inferior vena cava are normal in size. PELVIS: Pelvic Organs: Unremarkable. Bladder: Unremarkable. Pelvic Nodes: No enlarged lymph nodes. Miscellaneous: No inguinal hernias are seen. Bones: No aggressive osseous abnormality. IMPRESSION: 1. No CT evidence of gastrointestinal bleed. 2. Left lower lung consolidation concerning for pneumonia. 3. Moderate fecal stasis may represent constipation. 4. Punctate hepatic granulomas and calcified mediastinal lymph node most consistent with chronic granulomatous disease. Extremity x-ray #1: Radiologist's Impression: [address] [address] [address] Scan Report Signed Patient: Bandar George MR#: [id number] : 1970 Acct:[id number] Age/Sex: 55 / M Date of Service: 06/07/25 Loc: ED Accession Number: [id number] Procedure: CT LE LT w con Ordering Provider: Dereck Renee D.O. PROCEDURE: CT LE LT W CON INDICATIONS: Left leg pain and swellling TECHNIQUE: After the administration of intravenous contrast, 3 mm axial sections acquired of the left lower extremity , with coronal and sagittal reformats. COMPARISON: None. FINDINGS: Image quality: Excellent. Bones: No acute fracture or traumatic subluxation. No suspicious osseous abnormality. Soft tissues: Vascular structures are intact. No joint effusion. There is subcutaneous circumferential soft tissue edema of the lower extremity predominantly starting at the level of the mid tibia/fibula extending to the ankle. No subcutaneous emphysema. No organized fluid collection. IMPRESSION: Subcutaneous soft tissue edema predominantly at the level of the mid calf to the ankle most consistent with cellulitis. No evidence of deep space infection. No organized fluid collection or subcutaneous emphysema. MDM Narrative Medical decision making narrative: All lab work, vital signs, nurse triage note, medication list, previous ER visits, and all imaging studies reviewed. WBC 10.7 hemoglobin 7.6 platelet 216 INR 1.1 sodium 128 potassium 4.4 chloride 96 CO2 29 BUN 35 creatinine 1.24 glucose 199 take acid 1.[address] lower extremity showed subcutaneous soft tissue edema predominantly at the level of the mid calf to the ankle most consistent with cellulitis. No evidence of deep space infection. No organized fluid collection or subcutaneous emphysema. CT abdomen and pelvis. Showed no evidence of GI bleed. Left lung consolidation concerning for pneumonia. Moderate fecal stasis may represent constipation. Punctate hepatic granuloma and calcified mediastinal lymph node most consistent with chronic granulomatous disease. Patient given LR 1 L bolus x1 initially and then patient became hypotensive 90s over 50s given 2 L of lactated ringer bolus and started on blood transfusion. Vancomycin and Rocephin was given here. Transfuse 2 units of cross-matched blood. Case discussed with Dr. Adi Vivas Hospitalist at [facility] who has graciously accepted the patient for inpatient admission with telemetry bed. Discharge Plan Departure Patient Disposition: [facility] Clinical Impression: Anemia Qualifiers: Anemia type: unspecified type Qualified Code(s): D64.9 - Anemia, unspecified Fever Qualifiers: Fever type: unspecified Qualified Code(s): R50.9 - Fever, unspecified Pneumonia Qualifiers: Pneumonia type: due to unspecified organism Laterality: left Lung location: lower lobe of lung Qualified Code(s): J18.9 - Pneumonia, unspecified organism Prescriptions: No Action diazepam 2 mg tablet 4 mg PO BEDTIME PRN (Reason: sleep) Qty: 60 1RF trazodone 150 mg tablet 150 mg PO BEDTIME PRN (Reason: insomnia) Qty: 30 2RF nicotine 14 mg/24 hr patch 24 hour 1 patch transdermal DAILY Qty: 28 2RF Rx Instructions: remove one hour before bedtime nicotine (polacrilex) 2 mg mini lozenge 2 mg buccal Q2-4H PRN (Reason: nicotine cravings) Qty: 81 2RF albuterol sulfate 90 mcg/actuation HFA aerosol inhaler See Rx Instructions .ROUTE .COMPLEX Qty: 8.5 5RF Dose Instruction: inhale 2 puffs by mouth every 6 hours if needed for shortness of breath or wheezing Rx Instructions: inhale 2 puffs by mouth every 6 hours if needed for shortness of breath or wheezing ferrous gluconate 324 mg (37.5 mg iron) tablet 324 mg PO DAILY Qty: 90 3RF finasteride 5 mg tablet 5 mg PO DAILY Qty: 90 1RF Rx Instructions: take 1 tablet by mouth once daily losartan 100 mg tablet 100 mg PO DAILY Qty: 90 3RF prednisone 10 mg tablet 10 mg PO BEDTIME Qty: 90 3RF metformin 500 mg tablet See Rx Instructions .ROUTE .COMPLEX Qty: 360 1RF Rx Instructions: take 2 tablets by mouth twice a day with meals amlodipine 10 mg tablet 10 mg PO DAILY Qty: 90 1RF Rx Instructions: take 1 tablet by mouth once daily Dulera 200-5 mcg/actuation HFA aerosol inhaler See Rx Instructions .ROUTE .COMPLEX Qty: 13 6RF Dose Instruction: inhale 2 puffs by mouth and INTO THE LUNGS twice a day Rx Instructions: inhale 2 puffs by mouth and INTO THE LUNGS twice a day oxycodone-acetaminophen [Percocet] 10-325 mg tablet See Rx Instructions PO .COMPLEX PRN (Reason: pain) Qty: 180 0RF Rx Instructions: take 2 tablets by mouth every 4 hours if needed for pain buprenorphine-naloxone [Suboxone] 2-0.5 mg film See Rx Instructions buccal .COMPLEX Qty: 30 0RF Rx Instructions: place 1/2 strip/tab under side of tongue three times daily until you see provider. Patient under close supervision of PCP, specialist, and counseling case manager epinephrine [EpiPen 2-Nura] 0.3 mg/0.3 mL auto-injector 0.3 mg IM SEE INSTRUCTIONS Qty: 2 5RF spironolactone 25 mg tablet 25 mg PO BID cyclobenzaprine 10 mg tablet 10 mg PO TID PRN (Reason: muscle spasm) Qty: 180 3RF Rx Instructions: take 1 tablet by mouth three times a day if needed for SPASM(S) gabapentin 600 mg tablet 1,200 mg PO TID Qty: 240 3RF lidocaine [Lidoderm] 5 % adhesive patch,medicated 1 patch topical DAILY Qty: 30 2RF Rx Instructions: leave on most painful area for up to 12 hrs Mounjaro 10 mg/0.5 mL pen injector 10 mg SUBCUT QWEEK Qty: 2 0RF Rx Instructions: take for 4 weeks then switch to 12.5mg dosage furosemide 40 mg tablet See Rx Instructions .ROUTE .COMPLEX PRN (Reason: Swelling) Rx Instructions: 1-2 tabs as needed for swelling ipratropium-albuterol 0.5 mg-3 mg(2.5 mg base)/3 mL Solution For Nebulization 3 ml INH RTQ6HR PRN (Reason: Shortness Of Breath) Qty: 120 2RF nicotine [Nicoderm CQ] 14 mg/24 hr patch 24 hour 1 patch transdermal DAILY Qty: 14 2RF ondansetron 4 mg tablet,disintegrating 4 mg PO Q8H PRN (Reason: nausea and vomiting) Qty: 14 0RF tiotropium bromide [Spiriva with HandiHaler] 18 mcg capsule, w/inhalation device See Rx Instructions .ROUTE .COMPLEX Rx Instructions: inhale THE contents of 1 capsule in THE HANDIHALER once daily x2 puffs am and x2 puffs hs venlafaxine 75 mg tablet extended release 24hr 25 mg PO DAILY Qvar RediHaler 80 mcg/actuation HFA aerosol breath activated See Rx Instructions .ROUTE .COMPLEX Rx Instructions: inhale 2 puff by mouth every 12 hours Referrals: Ricardo Victoria MD [Primary Care Provider, Family Practice]
[2025-06-07] MEDS: SODIUM CHLORIDE 0.9% 1,000 ML 1000 ML IV (21:45)
--- NOTE | 2025-06-07 21:45 | PC.NURSE ---
pt feels disoriented but answers questions appropriately, moving without difficulty, recently d/c from [place],
[2025-06-07 21:51] LABS: Add Manual Diff / Slide Review NO; Hematocrit 22.9 % (41-53); Hemoglobin 7.6 g/dL (13.5-17.5); Lymphocytes Absolute Auto 1200 /uL (1100-4500); Mean Corpuscular HGB Conc 33.1 % (30-36); Mean Corpuscular Hemoglobin 29.1 PG (26-34); Mean Corpuscular Volume 87.9 fL (80-100); Platelet Count 216 X10^3/uL (150-400)
[2025-06-07 22:03] LABS: INR 1.1 (0.9-1.3); Prothrombin Time 12.4 SECONDS (9.4-12.5)
[2025-06-07 22:05] LABS: PTT Partial Thromboplastin Tim 30 SECONDS (25.1-36.5)
[2025-06-07 22:06] LABS: Alanine Aminotransferase 23 IU/L (<50); Albumin 3.3 g/dL (3.5-5.0); Albumin Globulin Ratio 1.2 (1.0-2.8); Alkaline Phosphatase 92 U/L (38-126); Blood Urea Nitrogen 35 mg/dL (9-20); Calcium 8.2 mg/dL (8.4-10.2); Carbon Dioxide 29 mmol/L (22-32); Chloride 96 mmol/L (98-107); Estimated Glomerular Filt Rate > 60 mL/min (>60); Globulin 2.8 g/dL (1.7-4.1); Glucose 199 mg/dL (70-99); HEMOLYSIS < 15 (0-50); Lipase 26 U/L (23-300); Potassium 4.4 mmol/L (3.4-5.1); Sodium 128 mmol/L (137-145); Total Protein 6.1 g/dL (6.3-8.2)
[2025-06-07 22:07] LABS: Lactate (Lactic Acid) 1.6 mmol/L (0.7-2.1)
[2025-06-07] MEDS: cefTRIAXone 2,000 MG in SODIUM CHLORIDE 0.9% 100 ML 200 MG IV (22:12)
[2025-06-07 22:16] VITALS: BP 90/53
[2025-06-07 22:17] VITALS: PULSE 98; O2SAT 97
[2025-06-07 22:23] LABS: Procalcitonin 0.551 ng/mL (<0.5)
[2025-06-07 22:30] VITALS: BP 94/51; PULSE 98; O2SAT 94
[2025-06-07 22:31] LABS: Anisocytosis 1+
--- NOTE | 2025-06-07 22:43 | DI.US.S_ITS ---
PROCEDURE: [facility] VENOUS LOW EXTREM LT INDICATIONS: Left leg pain and swelling TECHNIQUE: Real-time imaging, as well as color and pulse Doppler interrogation, were performed of the lower extremity deep veins from the inguinal ligament to the popliteal fossa, with documentation of the visualized calf veins. COMPARISON: [facility], , [facility] VENOUS LOW EXTREM LT, 05/18/2025, 14:00. FINDINGS: The common femoral, femoral, popliteal, and the visualized calf veins are normally compressible, and free of intraluminal thrombus. Color and pulse Doppler demonstrate normal phasic intraluminal flow. There is normal augmentation response to distal compression maneuver. Multiple varices seen throughout the calf some of which demonstrate occlusive and nonocclusive thrombi. IMPRESSION: No findings of lower extremity deep venous thrombosis. Superficial variceal occlusive and nonocclusive thrombi. Approved by: Kriss Perdue M.D.,Ph.D. on 06/08/2025 at 1:24
--- NOTE | 2025-06-07 22:43 | DI.CT.S_ITS ---
PROCEDURE: CT LE LT W CON INDICATIONS: Left leg pain and swellling TECHNIQUE: After the administration of intravenous contrast, 3 mm axial sections acquired of the left lower extremity , with coronal and sagittal reformats. COMPARISON: None. FINDINGS: Image quality: Excellent. Bones: No acute fracture or traumatic subluxation. No suspicious osseous abnormality. Soft tissues: Vascular structures are intact. No joint effusion. There is subcutaneous circumferential soft tissue edema of the lower extremity predominantly starting at the level of the mid tibia/fibula extending to the ankle. No subcutaneous emphysema. No organized fluid collection. IMPRESSION: Subcutaneous soft tissue edema predominantly at the level of the mid calf to the ankle most consistent with cellulitis. No evidence of deep space infection. No organized fluid collection or subcutaneous emphysema. Approved by: Kriss Perdue M.D.,Ph.D. on 06/08/2025 at 0:52
--- NOTE | 2025-06-07 22:50 | DI.CT.S_ITS ---
PROCEDURE: CT ANGIO ABD/PEL GI BLEED INDICATIONS: GI bleed TECHNIQUE: After the administration of intravenous contrast, 2.5 mm thick sections acquired from the diaphragm to the symphysis. 10 mm maximum-intensity projection (MIP) reformats were then acquired. For radiation dose reduction, the following was used: automated exposure control. COMPARISON: None. FINDINGS: Image Quality: Diagnostic. Abdominal aorta: No aortic aneurysm or evidence of acute aortic syndrome. Mesenteric arteries: Patent without hemodynamically significant stenosis. Renal arteries: Patent without hemodynamically significant stenosis. OTHER: Lower Chest: Lung consolidation. Calcified subcarinal lymph node likely representing healed granulomatous disease. Liver: No solid mass. Punctate calcified granulomas Gallbladder: No radiopaque gallstones or wall thickening. Biliary ducts: No biliary dilation. Pancreas: No ductal dilation. Spleen: Size is within normal limits. Adrenal Glands: No adrenal nodules. Kidneys and Ureters: No hydronephrosis. No solid mass. No complex renal cystic lesion which requires follow up. Stomach and Bowel: Normal colonic caliber, without significant wall thickening. Moderate fecal stasis. Peritoneum: No abnormal intraperitoneal fluid. No free air. Ventral Wall: No hernia. Abdominal Nodes: No retroperitoneal or mesenteric adenopathy by size criteria. Vessels: Aorta and inferior vena cava are normal in size. PELVIS: Pelvic Organs: Unremarkable. Bladder: Unremarkable. Pelvic Nodes: No enlarged lymph nodes. Miscellaneous: No inguinal hernias are seen. Bones: No aggressive osseous abnormality. IMPRESSION: 1. No CT evidence of gastrointestinal bleed. 2. Left lower lung consolidation concerning for pneumonia. 3. Moderate fecal stasis may represent constipation. 4. Punctate hepatic granulomas and calcified mediastinal lymph node most consistent with chronic granulomatous disease. Approved by: Kriss Perdue M.D.,Ph.D. on 06/08/2025 at 1:00
[2025-06-08] VITALS (79 sets, daily range): BP systolic 89–147; BP diastolic 42–81; PULSE 82–110; RESP 10–27; TEMP 36.6–37.3; O2SAT 88–100
[2025-06-08] MEDS: VANCOMYCIN 1,500 MG/300 ML PIGGYBACK 200 MG IV (00:08)
--- NOTE | 2025-06-08 00:10 | PC.NURSE ---
Took over care for pt. Pt moved from Rm 13 to Rm 10. pt hypotensive initially. Upon starting 2nd bag of LR, pt's BP started to rise. Pt aox4 in no signs of distress
[2025-06-08] MEDS: LACTATED RINGERS 1,000 ML 1000 ML IV (00:25)
--- NOTE | 2025-06-08 00:46 | PC.NURSE ---
Prior to RN starting emergency pRBC transfusion, lab called and reported having an immediate blood reaction with the type and screen. Recommended not to use. Blood sent back to lab with other RN. Provider aware. Pt sitting comfortable in bed. Reports he just wants a drink of pop
--- NOTE | 2025-06-08 00:47 | PC.NURSE ---
Had verified blood with primary nurse. Before blood was attached to the pt, lab called stating blood had an immediate reaction with pt's blood. Took unit back to lab. Pt did not receive any of the unmatched blood.
--- NOTE | 2025-06-08 01:07 | PC.NURSE ---
In room as fur tinter for rectal exam. Positive guiack test taken.
--- NOTE | 2025-06-08 01:22 | PC.NURSE ---
Pt with notable bruising/discoloration noted to R Elbow to wrist that he reports happened at [facility] [place] after having blood infiltrate from his IV.
--- NOTE | 2025-06-08 02:20 | INF.NOTE ---
Pt placed on recliner for comfort
[2025-06-08] MEDS: GABAPENTIN 600 MG TABLET PO (02:49)
[2025-06-08] MEDS: CYCLOBENZAPRINE 10 MG TABLET PO ×3 (02:49→14:59)
--- NOTE | 2025-06-08 02:51 | PC.NURSE ---
Pt tolerating blood administration well. Denies SOB, anxiety, pain to lower back, flushed feeling or any other symptoms
--- NOTE | 2025-06-08 04:49 | PC.NURSE ---
Pt with cough that has been ongoing for about a week per patient. Denies SOB or cough getting worse with blood administration
--- NOTE | 2025-06-08 06:01 | PC.NURSE ---
Pt resting, states he was finally able to get a little bit of sleep. Denies any issues, states I feel fine
--- NOTE | 2025-06-08 06:10 | PC.NURSE ---
Pt states accidentally pulling his R IV out while sleeping. Bleeding controlled, patients L upper IV still in use. Pt switched into new gown
[2025-06-08 07:10] LABS: Add Manual Diff / Slide Review NO; Hematocrit 24.3 % (41-53); Hemoglobin 8.2 g/dL (13.5-17.5); Lymphocytes Absolute Auto 1300 /uL (1100-4500); Mean Corpuscular HGB Conc 33.7 % (30-36); Mean Corpuscular Hemoglobin 29.1 PG (26-34); Mean Corpuscular Volume 86.3 fL (80-100); Platelet Count 205 X10^3/uL (150-400)
--- NOTE | 2025-06-08 07:38 | PC.NURSE ---
This RN met this patient. Patient denies any pain at this time. Patient able to stand independently and use urinal. Patient had 600ml output that was dumped and recorded by this RN. Call light in reach of patient.
[2025-06-08] MEDS: GABAPENTIN 600 MG TABLET 1200 MG PO ×2 (09:42→14:57)
[2025-06-08] MEDS: NICOTINE 14 PATCH 14 MG TOP (09:42)
--- NOTE | 2025-06-08 09:54 | PC.NURSE ---
Pt received medications for pain confirmed from home list and ok'ed by provider. Pain reported as 9/10 in neck. Losartan held per protocol after pt had low BP of 110/56. Pt denied any further needs at this time.
--- NOTE | 2025-06-08 10:29 | PC.NURSE ---
Patient has been having 90 saturation on oxygen. Patient placed on 2L of oxygen. Provider notified. Provider reviewed patient and ordered an additional unit of blood. This RN reviewed patient chart and noted patient does have signed consent for blood. Patient notified of provider addition blood order and approved of additional transfusion. Blood bank called and notified.
--- NOTE | 2025-06-08 10:48 | PC.NURSE ---
Patient was given 10-325mg oxycodone due to chronic pain. Patient has an order at home for every 4 hours as needed. This RN verified patient medications and informed Dr. Lee who gave this RN verbal orders for medications. Preceptee administered medications. This RN rechecked pain score after 30 minutes and patient informed this RN that it was still an 8. Patient states that it normally takes an hour to an hour an a half to work after taking. This RN will recheck pain score at that time to see if there is improvement in pain.
--- NOTE | 2025-06-08 11:49 | PC.NURSE ---
Blood transfusion started 16 minutes post administration due to need to get warmer prepped and added for patient blood infusion.
--- NOTE | 2025-06-08 15:00 | PC.NURSE ---
Addendum entered by Peterson Mejia RN 06/08/25 15:38: Help desk was able to eliminate the previous blockage to patient blood ending documentation being completed. Documentation was completed. Original Note: This RN attempted to end patient blood infusion at 14:50. Chart comes up with error The data listed below did not file into [facility] use this screen to reprocess the data in an attempt to send it to [facility] again. It lists last set of vitals that was charted for the end of the infusion. Infusion is complete at that time. No adverse reactions were noted or reported during this administration. When this RN attempted to fix or reprocess the patient blood to complete it and states the requisition is locked. Charge informed. Help desk contacted.
--- NOTE | 2025-06-08 15:09 | PC.NURSE ---
Pt received afternoon medications for pain. Reported pain 9/10 in neck and 10/10 in back. Pt informed of plan to transfer to [facility] where he was recently d/c'ed from. Pt had repeated low saturation reading on VS machine that resolved with pt performing slow and deep breathing. This RN encouraged pt to continue this to maintain O2 sat.
--- NOTE | 2025-06-08 16:28 | PC.NURSE ---
Pt discharged at 1620 with all belongings and remaining on 2L of O2. Report given to ambrose Childers prior to D/C. This RN called Dina Granda and gave report to FRANCIA Urena at 1625 after pt had discharged.
== END 2025-06-08 16:20 | disposition short-term general hospital (02) ==
PROVIDERS: Emergency Provider Family Medicine; PCP Family Medicine
DX: D64.9 Anemia, unspecified (principal); R50.9 Fever, unspecified; J18.9 Pneumonia, unspecified organism; L03.116 Cellulitis of left lower limb
CPT/HCPCS: 36415; 36430; 71045; 73701; 74174; 80053; 81003; 82272; 82962; 83605; 83690; 84145; 85025; 85610; 85730; 86850; 86900; 86901; 87040; 93005; 93010; 93971; 96365; 96366; 96367; 99285; P9016; J0696; J3375; Q9967

== ENCOUNTER 2025-06-14 22:52 | Emergency (ER) | payer OTHER, SELFPAY ==
[2025-05-23 17:12] VITALS: PULSE 106; RESP 24; O2SAT 94
[2025-06-14 23:05] VITALS: BP 108/68; PULSE 109; RESP 20; TEMP 37.3; O2SAT 98; BMI 37.3
--- NOTE | 2025-06-14 23:32 | DI.RAD.S_ITS ---
PROCEDURE: XR CHEST 1V INDICATIONS: Chest Pain TECHNIQUE: One view of the chest was acquired. COMPARISON: [facility], CR, XR CHEST 1V, 06/07/2025, 21:11. [facility], CR, XR CHEST 1V, 05/23/2025, 8:36. FINDINGS: Surgical changes and devices: None. Lungs and pleura: Suspect mild opacity at the lung bases. Not significantly changed. No pleural effusions or pneumothorax. Mediastinum: Mediastinal contours appear unchanged. Heart size is within normal limits. Bones and chest wall: No suspicious bony lesions. Overlying soft tissues appear unremarkable. IMPRESSION: Suspect mild opacity at the lung bases. Not significantly changed. Dictated by: Rio Giles M.D. on 06/15/2025 at 2:11 Approved by: Rio Giles M.D. on 06/15/2025 at 2:12
--- NOTE | 2025-06-14 23:37 | EKG_ITS ---
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
[2025-06-14 23:48] LABS: Add Manual Diff / Slide Review NO; Hematocrit 31.4 % (41-53); Hemoglobin 10.3 g/dL (13.5-17.5); Lymphocytes Absolute Auto 1600 /uL (1100-4500); Mean Corpuscular HGB Conc 32.8 % (30-36); Mean Corpuscular Hemoglobin 28.2 PG (26-34); Mean Corpuscular Volume 86.1 fL (80-100); Platelet Count 240 X10^3/uL (150-400)
[2025-06-14 23:52] LABS: INR 1.2 (0.9-1.3); Prothrombin Time 13.3 SECONDS (9.4-12.5)
[2025-06-14 23:55] LABS: PTT Partial Thromboplastin Tim 35 SECONDS (25.1-36.5)
[2025-06-15 00:02] LABS: Alanine Aminotransferase 18 IU/L (<50); Albumin 3.8 g/dL (3.5-5.0); Albumin Globulin Ratio 1.2 (1.0-2.8); Alkaline Phosphatase 113 U/L (38-126); Blood Urea Nitrogen 25 mg/dL (9-20); Calcium 8.4 mg/dL (8.4-10.2); Carbon Dioxide 29 mmol/L (22-32); Chloride 98 mmol/L (98-107); Creatine Kinase 49 U/L (55-170); Estimated Glomerular Filt Rate > 60 mL/min (>60); Globulin 3.2 g/dL (1.7-4.1); Glucose 182 mg/dL (70-99); HEMOLYSIS < 15 (0-50); Lipase 28 U/L (23-300); Magnesium 1.0 mg/dL (1.6-2.3); Potassium 3.7 mmol/L (3.4-5.1); Sodium 135 mmol/L (137-145); Total Protein 7.0 g/dL (6.3-8.2)
[2025-06-15 00:12] LABS: NT-proBNP (BNP-Adult 18+) 291 pg/mL (<125); Troponin I < 0.012 ng/mL (0.01-0.034)
[2025-06-15 01:42] VITALS: BP 147/72; PULSE 105; RESP 18; O2SAT 95
--- NOTE | 2025-06-15 01:43 | ED.DIZZY ---
HPI - Dizziness General Chief Complaint: Dizziness Stated Complaint: weakness , nausea Time Seen by Provider: 06/15/25 01:22 Source: patient Mode of arrival: Wheelchair History of Present Illness HPI Narrative: 55-year-old male patient with a history of chronic venous insufficiency/stasis along with anxiety/depression and OCD who complains of feeling short of breath and lightheaded earlier this evening for about an hour which has now resolved. He was worried about being anemic in his lab work because recently he had lengthy hospitalization both here and at [facility] in [place] for cellulitis of the lower extremities and anemia requiring transfusion for which he is being worked up. There is plans for a bone marrow biopsy. He is quite anxious about that. Currently feels better and not having shortness of breath or lightheadedness. Related Data Home Medications ?Medication ?Instructions ?Recorded ?Confirmed spironolactone 25 mg tablet 25 mg PO BID 12/28/23 06/14/25 furosemide 40 mg tablet See Rx Instructions .Route 06/10/24 06/14/25 .COMPLEX PRN Swelling beclomethasone dipropionate 80 See Rx Instructions .Route .COMPLEX 05/18/25 06/14/25 mcg/actuation HFA breath activated aerosol (Qvar RediHaler) tiotropium bromide 18 mcg capsule See Rx Instructions .Route .COMPLEX 05/18/25 06/14/25 with inhalation device (Spiriva with HandiHaler) venlafaxine 75 mg tablet,extended 25 mg PO DAILY 05/18/25 06/14/25 release 24 hr dapagliflozin propanediol 10 mg 10 mg PO DAILY 06/14/25 06/14/25 tablet dupilumab 300 mg/2 mL subcutaneous 300 mg SUBCUT Q2W 06/14/25 06/14/25 pen injector famotidine 20 mg tablet 20 mg PO BID 06/14/25 06/14/25 levofloxacin 250 mg tablet 250 mg PO DAILY 06/14/25 06/14/25 varenicline tartrate 0.5 mg (11)-1 See Rx Instructions PO PER PKG DIR 06/14/25 06/14/25 mg (42) tablets in a dose pack Previous Rx's ?Medication ?Instructions ?Recorded epinephrine 0.3 mg/0.3 mL 0.3 mg (0.3 mL) IM SEE 11/04/19 injection, auto-injector (EpiPen INSTRUCTIONS #2 ea 2-Nura) nicotine 14 mg/24 hr daily 1 patch transdermal DAILY #14 ea 06/12/24 transdermal patch (Nicoderm CQ) albuterol sulfate 90 mcg/actuation See Rx Instructions .Route 01/31/25 aerosol inhaler .COMPLEX #8.5 grams ferrous gluconate 324 mg (37.5 mg 324 mg PO DAILY #90 tabs 01/31/25 iron) tablet finasteride 5 mg tablet 5 mg PO DAILY #90 tabs 01/31/25 losartan 100 mg tablet 100 mg PO DAILY #90 tabs 01/31/25 Held on 06/14/25. Instructions: Home Medication placed on hold at Doctor's office prednisone 10 mg tablet 10 mg PO BEDTIME #90 tabs 01/31/25 cyclobenzaprine 10 mg tablet 10 mg PO TID PRN muscle spasm #180 02/01/25 tabs gabapentin 600 mg tablet 1,200 mg (2 x 600 mg) PO TID #240 02/27/25 tabs lidocaine 5 % topical patch 1 patch topical DAILY #30 ea 02/27/25 (Lidoderm) metformin 500 mg tablet See Rx Instructions .Route 03/07/25 .COMPLEX #360 tabs diazepam 2 mg tablet 4 mg (2 x 2 mg) PO BEDTIME PRN 04/10/25 sleep #60 tabs tirzepatide 10 mg/0.5 mL 10 mg (0.5 mL) SUBCUT QWEEK #2 mL 04/26/25 subcutaneous pen injector (Brunilda) amlodipine 10 mg tablet 10 mg PO DAILY #90 tabs 05/07/25 mometasone-formoterol HFA 200 See Rx Instructions .Route 05/07/25 mcg-5 mcg/actuation aerosol .COMPLEX #13 grams inhaler (Dulera) nicotine (polacrilex) 2 mg buccal 2 mg buccal Q2-4H PRN nicotine 05/16/25 mini lozenge cravings #81 ea nicotine 14 mg/24 hr daily 1 patch transdermal DAILY #28 ea 05/16/25 transdermal patch trazodone 150 mg tablet 150 mg PO BEDTIME PRN insomnia #30 05/16/25 tabs buprenorphine 2 mg-naloxone 0.5 mg See Rx Instructions buccal 05/18/25 sublingual film (Suboxone) .COMPLEX #30 ea buprenorphine 2 mg-naloxone 0.5 mg See Rx Instructions buccal 06/14/25 sublingual film (Suboxone) .COMPLEX #30 ea oxycodone-acetaminophen 10 mg-325 See Rx Instructions PO .COMPLEX 06/14/25 mg tablet (Percocet) PRN pain #120 tabs Allergies Allergy/AdvReac Type Severity Reaction Status Date / Time clindamycin Allergy Intermediate Verified 06/14/25 11:31 cephalexin (CEPHALEXIN) Allergy Mild FACIAL Verified 06/14/25 11:31 SWELLING terbinafine (TERBINAFINE) Allergy Unknown Unknown Verified 06/14/25 11:31 nut - unspecified Allergy Anaphylaxis Verified 06/14/25 11:31 benralizumab (From Fasenra) AdvReac Severe SOB Verified 06/14/25 11:31 Penicillins (PENICILLINS) AdvReac Severe Facial/mouth Verified 06/14/25 11:31 numbness, mouth/lip swelling Cephalosporins AdvReac Intermediate Vomiting Verified 06/14/25 11:31 (CEPHALOSPORINS) Beta-Blockers AdvReac Mild ASTHMA Verified 06/14/25 11:31 (Beta-Adrenergic Bloc doxycycline (DOXYCYCLINE) AdvReac Mild HIVES Verified 06/14/25 11:31 nadolol (NADOLOL) AdvReac Mild AGGREVATES Verified 06/14/25 11:31 ASTHMA semaglutide (From Ozempic) AdvReac Mild CONSTIPATIO Verified 06/14/25 11:31 N Sulfa (Sulfonamide AdvReac Mild VOMITING Verified 06/14/25 11:31 Antibiotics) (SULFA (SULFONAMIDE ANTIBIOTICS)) Review of Systems Review of Systems ROS Unobtainable: All systems reviewed & are unremarkable except as noted in HPI and below Cardiovascular Cardiovascular: Reports as per HPI Respiratory Respiratory: Reports as per HPI Psychiatric Psychiatric: Reports as per HPI Patient History Medical History Cervical stenosis of spinal canal Chronic pain syndrome EMA (generalized anxiety disorder) 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 Hyperlipidemia Hypertension Iron deficiency anemia Myocarditis OCD (obsessive compulsive disorder) Tobacco use disorder Varicose vein of leg Surgical History No pertinent past surgical history Social History marital status: unmarried,single household members: significant other lives independently: Yes occupational status: disabled alcohol intake: never substance use type: does not use Smoking Status: Former smoker tobacco type: cigarettes alcohol intake frequency: other Exam Narrative Exam Narrative: General: Alert and conversant. No distress. Mild anxiety. Appears well nourished and well hydrated Neck: No tenderness or adenopathy. No meningismus. No JVD Lungs: Clear to auscultation with good air movement. No wheezing, rales or rhonchi. No respiratory distress Cardiac: Regular rate and rhythm with no appreciable murmur or gallop Abdomen: Soft, nontender with no distention or masses. Normal bowel sounds. No rebound or guarding Neuro: Alert and oriented. Cranial nerves, motor, sensory and cerebellar all grossly intact. No focal deficit Skin: Warm and normal color. No rashes Psychological: Mild anxiety but otherwise Normal affect and interaction. No evidence of delusion or psychosis. Normal mood. Initial Vital Signs Initial Vital Signs: Vital Signs Temperature 99.1 F 06/14/25 23:05 Pulse Rate 109 H 06/14/25 23:05 Respiratory Rate 20 06/14/25 23:05 Blood Pressure 108/68 06/14/25 23:05 Pulse Oximetry 98 06/14/25 23:05 Oxygen Delivery Method Room Air 06/14/25 23:05 Course Orders Ordered: ED Orders 06/14/25 23:25 Complete Blood Count AUTO DIFF Stat Comprehensive Metabolic Panel Stat Lipase Stat Magnesium Stat NT-proBNP (BNP-Adult 18+) Stat PTT Partial Thromboplastin Emanuel Stat Prothrombin Time INR Stat Troponin & CK Cardiac Panel Stat 06/14/25 23:32 XR chest 1V Stat EKG-12 Lead Stat Vital Signs Vital signs: Vital Signs - 8 hr 06/14/25 23:05 06/15/25 01:42 Temperature 99.1 F Pulse Rate 109 H 105 H Respiratory Rate 20 18 Blood Pressure 108/68 147/72 H Pulse Oximetry 98 95 Oxygen Delivery Method Room Air Room Air MDM - Dizziness Differential Diagnosis Differential diagnosis: Likely adverse reaction to drug, orthostatic hypotension, vertebral basilar insufficiency and transient cerebral ischemia Medical Records Attestation: I reviewed the patient's medical records. Medical records narrative: History of admissions and visits. Most recently admitted for anemia, cellulitis along with anxiety. He required transfer to [facility]. Lab Data Attestation: I reviewed the patient's lab results. Lab results narrative: Improving anemia with hemoglobin 10.3. CMP with glucose of 182 but otherwise unremarkable. Troponin negative 06/14/25 23:25 06/14/25 23:25 Labs: Lab Results 06/14/25 Range/Units 23:25 WBC 6.7 (4.5-11.0) X10^3/uL RBC 3.65 L (4.5-5.9) X10^6/uL Hgb 10.3 L (13.5-17.5) g/dL Hct 31.4 L (41-53) % MCV 86.1 (80-100) fL MCH 28.2 (26-34) PG MCHC 32.8 (30-36) % RDW 18.9 H (11.6-14.8) % Plt Count 240 (150-400) X10^3/uL Neut % (Auto) 60.0 (50-75) % Lymph % (Auto) 24.8 L (25-40) % Collier % (Auto) 11.2 (3-14) % Eos % (Auto) 3.0 (2-4) % Baso % (Auto) 1.0 (0-2) % Neut # (Auto) 4000 (7038-9408) /uL Lymph # (Auto) 1600 (3180-9362) /uL Collier # (Auto) 700 (0-900) /uL Eos # (Auto) 200 (0-450) /uL Baso # (Auto) 100 (0-100) /uL PT 13.3 H (9.4-12.5) SECONDS INR 1.2 (0.9-1.3) APTT 35 (25.1-36.5) SECONDS Sodium 135 L (137-145) mmol/L Potassium 3.7 (3.4-5.1) mmol/L Chloride 98 (98-107) mmol/L Carbon Dioxide 29 (22-32) mmol/L BUN 25 H (9-20) mg/dL Creatinine 1.14 (0.66-1.25) mg/dL Estimated GFR > 60 (>60) mL/min BUN/Creatinine Ratio 21.9 (6-22) Glucose 182 H (70-99) mg/dL Calcium 8.4 (8.4-10.2) mg/dL Magnesium 1.0 L (1.6-2.3) mg/dL Total Bilirubin 0.4 (0.2-1.3) mg/dL AST 22 (17-59) IU/L ALT 18 (<50) IU/L Alkaline Phosphatase 113 (38-126) U/L Total Creatine Kinase 49 L (55-170) U/L Troponin I < 0.012 (0.01-0.034) ng/mL NT-Pro-B Natriuret Pep 291 H (<125) pg/mL Total Protein 7.0 (6.3-8.2) g/dL Albumin 3.8 (3.5-5.0) g/dL Globulin 3.2 (1.7-4.1) g/dL Albumin/Globulin Ratio 1.2 (1.0-2.8) Lipase 28 (23-300) U/L Imaging Data Chest x-ray: Attestation: I personally reviewed and interpreted this imaging study as follows: My Impression: No acute disease ECG Data Attestation: I personally reviewed and interpreted this ECG as follows: (Normal sinus rhythm. Poor R-wave progression. Rate 99. Normal axis and intervals otherwise) MDM Narrative Medical decision making narrative: Patient had symptoms consistent with probable anxiety or panic attack. Patient's EKG, lab work and physical exam overall reassuring. Does not appear to be an exacerbation of his anemia or illness that needs further workup or admission. Patient feels much better after calming down and talking about the results and his symptoms. He will monitor symptoms and follow up with his providers. Return to the ER if worse. Discharge Plan Departure Patient Disposition: Home Clinical Impression: Panic attack Instructions: Panic Disorder, DI for Dizziness-Nonvertigo Activity Restrictions/Additional Instructions: Plan: Hydration rest and anxiety/stress reduction. Monitor symptoms and follow up with your providers. Return to the ER if worse Prescriptions: No Action diazepam 2 mg tablet 4 mg PO BEDTIME PRN (Reason: sleep) Qty: 60 1RF trazodone 150 mg tablet 150 mg PO BEDTIME PRN (Reason: insomnia) Qty: 30 2RF nicotine 14 mg/24 hr patch 24 hour 1 patch transdermal DAILY Qty: 28 2RF Rx Instructions: remove one hour before bedtime nicotine (polacrilex) 2 mg mini lozenge 2 mg buccal Q2-4H PRN (Reason: nicotine cravings) Qty: 81 2RF albuterol sulfate 90 mcg/actuation HFA aerosol inhaler See Rx Instructions .ROUTE .COMPLEX Qty: 8.5 5RF Dose Instruction: inhale 2 puffs by mouth every 6 hours if needed for shortness of breath or wheezing Rx Instructions: inhale 2 puffs by mouth every 6 hours if needed for shortness of breath or wheezing ferrous gluconate 324 mg (37.5 mg iron) tablet 324 mg PO DAILY Qty: 90 3RF finasteride 5 mg tablet 5 mg PO DAILY Qty: 90 1RF Rx Instructions: take 1 tablet by mouth once daily losartan 100 mg tablet 100 mg PO DAILY Qty: 90 3RF prednisone 10 mg tablet 10 mg PO BEDTIME Qty: 90 3RF metformin 500 mg tablet See Rx Instructions .ROUTE .COMPLEX Qty: 360 1RF Rx Instructions: take 2 tablets by mouth twice a day with meals amlodipine 10 mg tablet 10 mg PO DAILY Qty: 90 1RF Rx Instructions: take 1 tablet by mouth once daily Dulera 200-5 mcg/actuation HFA aerosol inhaler See Rx Instructions .ROUTE .COMPLEX Qty: 13 6RF Dose Instruction: inhale 2 puffs by mouth and INTO THE LUNGS twice a day Rx Instructions: inhale 2 puffs by mouth and INTO THE LUNGS twice a day buprenorphine-naloxone [Suboxone] 2-0.5 mg film See Rx Instructions buccal .COMPLEX Qty: 30 0RF Rx Instructions: place 1/2 strip/tab under side of tongue three times daily until you see provider. Patient under close supervision of PCP, specialist, and case supervisor epinephrine [EpiPen 2-Nura] 0.3 mg/0.3 mL auto-injector 0.3 mg IM SEE INSTRUCTIONS Qty: 2 5RF spironolactone 25 mg tablet 25 mg PO BID cyclobenzaprine 10 mg tablet 10 mg PO TID PRN (Reason: muscle spasm) Qty: 180 3RF Rx Instructions: take 1 tablet by mouth three times a day if needed for SPASM(S) gabapentin 600 mg tablet 1,200 mg PO TID Qty: 240 3RF lidocaine [Lidoderm] 5 % adhesive patch,medicated 1 patch topical DAILY Qty: 30 2RF Rx Instructions: leave on most painful area for up to 12 hrs Mounjaro 10 mg/0.5 mL pen injector 10 mg SUBCUT QWEEK Qty: 2 0RF Rx Instructions: take for 4 weeks then switch to 12.5mg dosage levofloxacin 250 mg tablet 250 mg PO DAILY famotidine 20 mg tablet 20 mg PO BID varenicline tartrate 0.5 mg (11)- 1 mg (42) tablets,dose pack See Rx Instructions PO PER PKG DIR Rx Instructions: PO PER PKG DIR dapagliflozin propanediol 10 mg tablet 10 mg PO DAILY dupilumab 300 mg/2 mL pen injector 300 mg SUBCUT Q2W buprenorphine-naloxone [Suboxone] 2-0.5 mg film See Rx Instructions buccal .COMPLEX Qty: 30 0RF Rx Instructions: place 1/2 strip/tab under side of tongue three times daily until you see provider. Patient under close supervision of PCP, specialist, and case supervisor oxycodone-acetaminophen [Percocet] 10-325 mg tablet See Rx Instructions PO .COMPLEX PRN (Reason: pain) Qty: 120 0RF Rx Instructions: take 2 tablets by mouth every 6 hours if needed for pain furosemide 40 mg tablet See Rx Instructions .ROUTE .COMPLEX PRN (Reason: Swelling) Rx Instructions: 1-2 tabs as needed for swelling nicotine [Nicoderm CQ] 14 mg/24 hr patch 24 hour 1 patch transdermal DAILY Qty: 14 2RF tiotropium bromide [Spiriva with HandiHaler] 18 mcg capsule, w/inhalation device See Rx Instructions .ROUTE .COMPLEX Rx Instructions: inhale THE contents of 1 capsule in THE HANDIHALER once daily x2 puffs am and x2 puffs hs venlafaxine 75 mg tablet extended release 24hr 25 mg PO DAILY Qvar RediHaler 80 mcg/actuation HFA aerosol breath activated See Rx Instructions .ROUTE .COMPLEX Rx Instructions: inhale 2 puff by mouth every 12 hours Referrals: Ricardo Victoria MD [Primary Care Provider, Family Practice] Stand Alone Forms: Patient Portal/API
== END 2025-06-15 01:53 | disposition home or self-care (01) ==
PROVIDERS: Emergency Provider Emergency Medicine; PCP Family Medicine
DX: F41.0 Panic disorder [episodic paroxysmal anxiety] (principal)
CPT/HCPCS: 36415; 71045; 80053; 82550; 83690; 83735; 83880; 84484; 85025; 85610; 85730; 93005; 99283; 99284

== ENCOUNTER 2025-06-18 19:26 | Emergency (ER) | payer OTHER, SELFPAY ==
[2025-05-23 17:12] VITALS: PULSE 106; RESP 24; O2SAT 94
[2025-06-18 19:36] VITALS: BP 137/68; PULSE 97; RESP 17; TEMP 36.5; O2SAT 100; BMI 37.5
[2025-06-18 21:40] VITALS: BP 115/67; O2SAT 97
[2025-06-18 22:00] VITALS: BP 121/69; PULSE 89; RESP 16; O2SAT 99
[2025-06-18 22:30] VITALS: BP 133/65; PULSE 82; RESP 20; O2SAT 98
[2025-06-18 23:00] VITALS: BP 124/61; PULSE 84; O2SAT 92
--- NOTE | 2025-06-18 23:09 | ED.LOWEXIN ---
HPI - Extremity Injury (Lower) General Chief Complaint: Extremity Injury, Lower Stated Complaint: left leg possible infection Time Seen by Provider: 06/18/25 19:51 History of Present Illness HPI Narrative: 55-year-old male with history of chronic bilateral [id number]-right lower extremity edema, history of anemia with workup at [place] including bone marrow biopsy with results pending for follow up, had infection treatment left lower extremity with course of levofloxacin, 5 day course completed Wednesday 2 days ago. Increasing redness to the left lower extremity, some discomfort left medial thigh. Denies chest pain or shortness of breath. Denies fevers and chills. [facility], believes he had x-ray of the left lower extremity done a few days ago, no concerns known to him from the radiograph. More weeping and redness to his left leg. Allergies: Has numerous antibacterial drug allergies including to cephalosporins, sulfa antibiotics, doxycycline, clindamycin, penicillins. He has had levofloxacin before and recently as above. Related Data Home Medications ?Medication ?Instructions ?Recorded ?Confirmed spironolactone 25 mg tablet 25 mg PO BID 12/28/23 06/14/25 furosemide 40 mg tablet See Rx Instructions .Route 06/10/24 06/14/25 .COMPLEX PRN Swelling beclomethasone dipropionate 80 See Rx Instructions .Route .COMPLEX 05/18/25 06/14/25 mcg/actuation HFA breath activated aerosol (Qvar RediHaler) tiotropium bromide 18 mcg capsule See Rx Instructions .Route .COMPLEX 05/18/25 06/14/25 with inhalation device (Spiriva with HandiHaler) venlafaxine 75 mg tablet,extended 25 mg PO DAILY 05/18/25 06/14/25 release 24 hr dapagliflozin propanediol 10 mg 10 mg PO DAILY 06/14/25 06/14/25 tablet dupilumab 300 mg/2 mL subcutaneous 300 mg SUBCUT Q2W 06/14/25 06/14/25 pen injector famotidine 20 mg tablet 20 mg PO BID 06/14/25 06/14/25 levofloxacin 250 mg tablet 250 mg PO DAILY 06/14/25 06/14/25 varenicline tartrate 0.5 mg (11)-1 See Rx Instructions PO PER PKG DIR 06/14/25 06/14/25 mg (42) tablets in a dose pack Previous Rx's ?Medication ?Instructions ?Recorded epinephrine 0.3 mg/0.3 mL 0.3 mg (0.3 mL) IM SEE 07/17/19 injection, auto-injector (EpiPen INSTRUCTIONS #2 ea 2-Nura) nicotine 14 mg/24 hr daily 1 patch transdermal DAILY #14 ea 06/12/24 transdermal patch (Nicoderm CQ) albuterol sulfate 90 mcg/actuation See Rx Instructions .Route 01/31/25 aerosol inhaler .COMPLEX #8.5 grams ferrous gluconate 324 mg (37.5 mg 324 mg PO DAILY #90 tabs 01/31/25 iron) tablet finasteride 5 mg tablet 5 mg PO DAILY #90 tabs 01/31/25 losartan 100 mg tablet 100 mg PO DAILY #90 tabs 01/31/25 Held on 06/14/25. Instructions: Home Medication placed on hold at Doctor's office prednisone 10 mg tablet 10 mg PO BEDTIME #90 tabs 01/31/25 cyclobenzaprine 10 mg tablet 10 mg PO TID PRN muscle spasm #180 02/01/25 tabs gabapentin 600 mg tablet 1,200 mg (2 x 600 mg) PO TID #240 02/27/25 tabs lidocaine 5 % topical patch 1 patch topical DAILY #30 ea 02/27/25 (Lidoderm) metformin 500 mg tablet See Rx Instructions .Route 03/07/25 .COMPLEX #360 tabs diazepam 2 mg tablet 4 mg (2 x 2 mg) PO BEDTIME PRN 04/10/25 sleep #60 tabs tirzepatide 10 mg/0.5 mL 10 mg (0.5 mL) SUBCUT QWEEK #2 mL 04/26/25 subcutaneous pen injector (Brunilda) amlodipine 10 mg tablet 10 mg PO DAILY #90 tabs 05/07/25 mometasone-formoterol HFA 200 See Rx Instructions .Route 05/07/25 mcg-5 mcg/actuation aerosol .COMPLEX #13 grams inhaler (Dulera) nicotine (polacrilex) 2 mg buccal 2 mg buccal Q2-4H PRN nicotine 05/16/25 mini lozenge cravings #81 ea nicotine 14 mg/24 hr daily 1 patch transdermal DAILY #28 ea 05/16/25 transdermal patch trazodone 150 mg tablet 150 mg PO BEDTIME PRN insomnia #30 05/16/25 tabs buprenorphine 2 mg-naloxone 0.5 mg See Rx Instructions buccal 05/18/25 sublingual film (Suboxone) .COMPLEX #30 ea buprenorphine 2 mg-naloxone 0.5 mg See Rx Instructions buccal 06/14/25 sublingual film (Suboxone) .COMPLEX #30 ea oxycodone-acetaminophen 10 mg-325 See Rx Instructions PO .COMPLEX 06/14/25 mg tablet (Percocet) PRN pain #120 tabs apixaban 5 mg tablet (Eliquis) 5 mg PO BID #180 tabs 06/19/25 levofloxacin 500 mg tablet 500 mg PO DAILY #7 tabs 06/19/25 levofloxacin 500 mg tablet 500 mg PO DAILY 5 days #5 tabs 06/19/25 Allergies Allergy/AdvReac Type Severity Reaction Status Date / Time clindamycin Allergy Intermediate Verified 06/18/25 19:36 cephalexin (CEPHALEXIN) Allergy Mild FACIAL Verified 06/18/25 19:36 SWELLING terbinafine (TERBINAFINE) Allergy Unknown Unknown Verified 06/18/25 19:36 nut - unspecified Allergy Anaphylaxis Verified 06/18/25 19:36 benralizumab (From Fasenra) AdvReac Severe SOB Verified 06/18/25 19:36 Penicillins (PENICILLINS) AdvReac Severe Facial/mouth Verified 06/18/25 19:36 numbness, mouth/lip swelling Cephalosporins AdvReac Intermediate Vomiting Verified 06/18/25 19:36 (CEPHALOSPORINS) Beta-Blockers AdvReac Mild ASTHMA Verified 06/18/25 19:36 (Beta-Adrenergic Bloc doxycycline (DOXYCYCLINE) AdvReac Mild HIVES Verified 06/18/25 19:36 nadolol (NADOLOL) AdvReac Mild AGGREVATES Verified 06/18/25 19:36 ASTHMA semaglutide (From Ozempic) AdvReac Mild CONSTIPATIO Verified 06/18/25 19:36 N Sulfa (Sulfonamide AdvReac Mild VOMITING Verified 06/18/25 19:36 Antibiotics) (SULFA (SULFONAMIDE ANTIBIOTICS)) Patient History Medical History Cervical stenosis of spinal canal Chronic pain syndrome EMA (generalized anxiety disorder) 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 HEAD: Atraumatic. Normocephalic. EYES: Pupils equal round and reactive. Extraocular motions intact. No scleral icterus. No injection or drainage. ENT: Nose without bleeding, purulent drainage. Throat without erythema, tonsillar hypertrophy or exudate. Airway patent. NECK: Trachea midline. Non tender CARDIOVASCULAR: Regular rate and rhythm without murmurs, gallops, or rubs. RESPIRATORY: Clear to auscultation. Breath sounds equal bilaterally. No wheezes, rales, or rhonchi. GASTROINTESTINAL: Abdomen soft, non-tender, nondistended. EXTREMITIES: No edema or joint tenderness. BACK: Nontender without deformity or crepitance. No flank tenderness. NEURO: AOx3. Motor functions grossly nonfocal. SKIN: No rash or erythema of visible areas Initial Vital Signs Initial Vital Signs: Vital Signs Temperature 97.7 F 06/18/25 19:36 Pulse Rate 97 H 06/18/25 19:36 Respiratory Rate 17 06/18/25 19:36 Blood Pressure 137/68 06/18/25 19:36 Pulse Oximetry 100 06/18/25 19:36 Oxygen Delivery Method Room Air 06/18/25 19:36 Course Orders Ordered: ED Orders 06/18/25 23:32 CBC Auto Diff [Complete Blood Count AUTO DIFF] Stat CMP [Comprehensive Metabolic Panel] Stat CRP [C-Reactive Protein Quant] Stat ESR [Erythrocyte Sedimentation Rate] Stat 06/19/25 00:11 US periph venous low extrem lt Stat Discontinued Medications Apixaban (Apixaban 5 Mg Tablet) 5 mg PO NOW ONE Stop: 06/19/25 01:53 Last Admin: 06/19/25 02:12 Dose: 5 mg Documented By: [facility] Levofloxacin (Levofloxacin 250 Mg Tablet) 500 mg PO NOW ONE Stop: 06/19/25 00:16 Last Admin: 06/19/25 00:40 Dose: 500 mg Documented By: VALDO Vital Signs Vital signs: Vital Signs - 8 hr 06/18/25 21:40 06/18/25 21:40 06/18/25 22:00 Pulse Rate Respiratory Rate Blood Pressure 115/67 121/69 Pulse Oximetry 97 06/18/25 22:00 06/18/25 22:30 06/18/25 22:30 Pulse Rate 89 82 Respiratory Rate 16 Blood Pressure 133/65 Pulse Oximetry 99 98 06/18/25 22:30 06/18/25 22:30 06/18/25 23:00 Pulse Rate Respiratory Rate 20 Blood Pressure 133/65 133/65 124/61 Pulse Oximetry 06/18/25 23:00 06/18/25 23:30 06/19/25 00:00 Pulse Rate 84 74 86 Respiratory Rate 16 Blood Pressure Pulse Oximetry 92 95 98 06/19/25 01:18 06/19/25 01:19 06/19/25 01:19 Pulse Rate 86 Respiratory Rate 20 Blood Pressure 129/63 Pulse Oximetry 99 98 MDM - Extremity Injury (Lower) Lab Data Attestation: I reviewed the patient's lab results. Lab results narrative: White blood cell count 8900, hemoglobin 9.9, platelets adequate. Glucose 190. BUN 31 with creatinine 1.01. Serum CO2 32, potassium 4.0, sodium 135. Liver functions unremarkable. C-reactive protein 3.7 mildly elevated. ESR 46 mildly elevated. 06/19/25 00:25 06/19/25 00:25 Labs: Lab Results 06/19/25 Range/Units 00:25 WBC 8.9 (4.5-11.0) X10^3/uL RBC 3.51 L (4.5-5.9) X10^6/uL Hgb 9.9 L (13.5-17.5) g/dL Hct 29.7 L (41-53) % MCV 84.8 (80-100) fL MCH 28.2 (26-34) PG MCHC 33.3 (30-36) % RDW 18.9 H (11.6-14.8) % Plt Count 289 (150-400) X10^3/uL Neut % (Auto) 59.5 (50-75) % Lymph % (Auto) 25.5 (25-40) % Irion % (Auto) 12.2 (3-14) % Eos % (Auto) 2.0 (2-4) % Baso % (Auto) 0.8 (0-2) % Neut # (Auto) 5300 (6583-0931) /uL Lymph # (Auto) 2300 (2389-3908) /uL Irion # (Auto) 1100 H (0-900) /uL Eos # (Auto) 200 (0-450) /uL Baso # (Auto) 100 (0-100) /uL ESR 46 H (0-15) MM/HR Sodium 135 L (137-145) mmol/L Potassium 4.0 (3.4-5.1) mmol/L Chloride 95 L (98-107) mmol/L Carbon Dioxide 32 (22-32) mmol/L BUN 31 H (9-20) mg/dL Creatinine 1.01 (0.66-1.25) mg/dL Estimated GFR > 60 (>60) mL/min BUN/Creatinine Ratio 30.7 H (6-22) Glucose 190 H (70-99) mg/dL Calcium 8.3 L (8.4-10.2) mg/dL Total Bilirubin 0.2 (0.2-1.3) mg/dL AST 20 (17-59) IU/L ALT 19 (<50) IU/L Alkaline Phosphatase 124 (38-126) U/L C-Reactive Protein 3.7 H (<1.0) mg/dL Total Protein 6.7 (6.3-8.2) g/dL Albumin 3.7 (3.5-5.0) g/dL Globulin 3.0 (1.7-4.1) g/dL Albumin/Globulin Ratio 1.2 (1.0-2.8) MDM Narrative Medical decision making narrative: 55-year-old male with chronic lower extremity edema [facility], increased redness and some pain and swelling to the left medial thigh, increased redness to distal extremity and weeping. Afebrile, sirs screen negative. Recently completed course of oral levofloxacin, multiple classes of antibiotic drug allergies noted. Clinically suspect cellulitis. Has tolerated oral Levaquin, given oral dose, prescription for 5 days more. Labs pending. Ultrasound left lower extremity venous Doppler ordered. Ultrasound left lower extremity venous Doppler, shows clot in greater saphenous vein superficial system, however it does extend just 2.8 cm from the junction to deep system, high-risk due to less than 3 cm from junction. We will treat same as for DVT. Patient does not have obvious contraindications to oral anticoagulation. First dose Eliquis given, prescription sent to his pharmacy for 1st 90 days supply. Advised recheck later this week or early next week with PCP, consider repeat Doppler ultrasound to see if patient is responding to therapy. Recheck earlier if increasing swelling, chest pain, shortness of breath, any concerns. Answered patient questions. Discharged home. Follow up as above with PCP. Return precautions discussed. Discharge Plan Departure Patient Disposition: Home Clinical Impression: Superficial thrombophlebitis of left leg, Cellulitis Activity Restrictions/Additional Instructions: Chronic leg edema with weeping, followed by wound care clinic with elastic wrapping compression dressings. Recent course of antibiotics for cellulitis completed a few days ago. Increased redness and swelling to the proximal leg and sore spot in the medial upper gluteal region. Clinically suspicious for possible superficial thrombophlebitis blood clot by physical exam. Ultrasound venous Doppler did confirm clot in the greater saphenous vein, which is considered to be a superficial vein, however the clot does extend to less than 3 cm from the junction to the deep vein system. It is therefore treated clinically like a deep vein thrombosis, which is associated with increased risks, as blood clots can break off and travel to the lungs and cause chest pain and drop in blood pressure and even . Treatment is with anticoagulation such as Eliquis oral tablet. First dose Eliquis given in the emergency department, prescription for twice daily Eliquis dosing sent to your pharmacy. Treatment tends to for 3-6 months' duration. We will give initial 90 day supply. Advised recheck clinical exam later this week or early next week with your regular provider to make sure that treatment is working, sometimes repeat ultrasound study is done to make sure there was no progression of clot. Recheck if you have chest pain or trouble breathing. Return to this/nearest emergency department for any change worsening symptoms or any concerns. Superficial venous thrombosis clinical information given from up-to-date database. We reference the page that described high-risk clot in the greater saphenous vein less than 3 cm from junction to the deep venous system. Physical copy printed for you for discharge. Prescriptions: New levofloxacin 500 mg tablet 500 mg PO DAILY 5 Days Qty: 5 0RF Eliquis 5 mg tablet 5 mg PO BID Qty: 180 0RF levofloxacin 500 mg tablet 500 mg PO DAILY Qty: 7 0RF No Action diazepam 2 mg tablet 4 mg PO BEDTIME PRN (Reason: sleep) Qty: 60 1RF trazodone 150 mg tablet 150 mg PO BEDTIME PRN (Reason: insomnia) Qty: 30 2RF nicotine 14 mg/24 hr patch 24 hour 1 patch transdermal DAILY Qty: 28 2RF Rx Instructions: remove one hour before bedtime nicotine (polacrilex) 2 mg mini lozenge 2 mg buccal Q2-4H PRN (Reason: nicotine cravings) Qty: 81 2RF albuterol sulfate 90 mcg/actuation HFA aerosol inhaler See Rx Instructions .ROUTE .COMPLEX Qty: 8.5 5RF Dose Instruction: inhale 2 puffs by mouth every 6 hours if needed for shortness of breath or wheezing Rx Instructions: inhale 2 puffs by mouth every 6 hours if needed for shortness of breath or wheezing ferrous gluconate 324 mg (37.5 mg iron) tablet 324 mg PO DAILY Qty: 90 3RF finasteride 5 mg tablet 5 mg PO DAILY Qty: 90 1RF Rx Instructions: take 1 tablet by mouth once daily losartan 100 mg tablet 100 mg PO DAILY Qty: 90 3RF prednisone 10 mg tablet 10 mg PO BEDTIME Qty: 90 3RF metformin 500 mg tablet See Rx Instructions .ROUTE .COMPLEX Qty: 360 1RF Rx Instructions: take 2 tablets by mouth twice a day with meals amlodipine 10 mg tablet 10 mg PO DAILY Qty: 90 1RF Rx Instructions: take 1 tablet by mouth once daily Dulera 200-5 mcg/actuation HFA aerosol inhaler See Rx Instructions .ROUTE .COMPLEX Qty: 13 6RF Dose Instruction: inhale 2 puffs by mouth and INTO THE LUNGS twice a day Rx Instructions: inhale 2 puffs by mouth and INTO THE LUNGS twice a day buprenorphine-naloxone [Suboxone] 2-0.5 mg film See Rx Instructions buccal .COMPLEX Qty: 30 0RF Rx Instructions: place 1/2 strip/tab under side of tongue three times daily until you see provider. Patient under close supervision of PCP, specialist, and dependency case manager epinephrine [EpiPen 2-Nura] 0.3 mg/0.3 mL auto-injector 0.3 mg IM SEE INSTRUCTIONS Qty: 2 5RF spironolactone 25 mg tablet 25 mg PO BID cyclobenzaprine 10 mg tablet 10 mg PO TID PRN (Reason: muscle spasm) Qty: 180 3RF Rx Instructions: take 1 tablet by mouth three times a day if needed for SPASM(S) gabapentin 600 mg tablet 1,200 mg PO TID Qty: 240 3RF lidocaine [Lidoderm] 5 % adhesive patch,medicated 1 patch topical DAILY Qty: 30 2RF Rx Instructions: leave on most painful area for up to 12 hrs Mounjaro 10 mg/0.5 mL pen injector 10 mg SUBCUT QWEEK Qty: 2 0RF Rx Instructions: take for 4 weeks then switch to 12.5mg dosage levofloxacin 250 mg tablet 250 mg PO DAILY famotidine 20 mg tablet 20 mg PO BID varenicline tartrate 0.5 mg (11)- 1 mg (42) tablets,dose pack See Rx Instructions PO PER PKG DIR Rx Instructions: PO PER PKG DIR dapagliflozin propanediol 10 mg tablet 10 mg PO DAILY dupilumab 300 mg/2 mL pen injector 300 mg SUBCUT Q2W buprenorphine-naloxone [Suboxone] 2-0.5 mg film See Rx Instructions buccal .COMPLEX Qty: 30 0RF Rx Instructions: place 1/2 strip/tab under side of tongue three times daily until you see provider. Patient under close supervision of PCP, specialist, and dependency case manager oxycodone-acetaminophen [Percocet] 10-325 mg tablet See Rx Instructions PO .COMPLEX PRN (Reason: pain) Qty: 120 0RF Rx Instructions: take 2 tablets by mouth every 6 hours if needed for pain furosemide 40 mg tablet See Rx Instructions .ROUTE .COMPLEX PRN (Reason: Swelling) Rx Instructions: 1-2 tabs as needed for swelling nicotine [Nicoderm CQ] 14 mg/24 hr patch 24 hour 1 patch transdermal DAILY Qty: 14 2RF tiotropium bromide [Spiriva with HandiHaler] 18 mcg capsule, w/inhalation device See Rx Instructions .ROUTE .COMPLEX Rx Instructions: inhale THE contents of 1 capsule in THE HANDIHALER once daily x2 puffs am and x2 puffs hs venlafaxine 75 mg tablet extended release 24hr 25 mg PO DAILY Qvar RediHaler 80 mcg/actuation HFA aerosol breath activated See Rx Instructions .ROUTE .COMPLEX Rx Instructions: inhale 2 puff by mouth every 12 hours Referrals: Ricardo Victoria MD [Primary Care Provider, Family Practice] Stand Alone Forms: Patient Portal/API
[2025-06-18 23:30] VITALS: PULSE 74; O2SAT 95
[2025-06-19] VITALS: PULSE 86; RESP 16; O2SAT 98
--- NOTE | 2025-06-19 00:11 | DI.US.S_ITS ---
PROCEDURE: US PERIP VENOUS LOW EXTREM LT INDICATIONS: LLE swelling, increasing TECHNIQUE: Real-time imaging, as well as color and pulse Doppler interrogation, were performed of the lower extremity deep veins from the inguinal ligament to the popliteal fossa, with documentation of the visualized calf veins. COMPARISON: [facility], , [facility] VENOUS LOW EXTREM LT, 06/07/2025, 23:43. FINDINGS: The common femoral, femoral, popliteal, and the visualized calf veins are normally compressible, and free of intraluminal thrombus. Color and pulse Doppler demonstrate normal phasic intraluminal flow. Superficial venous thrombosis in the proximal greater saphenous vein 2.8 cm from the confluence with the common femoral vein. Varicose veins with superficial venous thrombosis. IMPRESSION: No findings of lower extremity deep venous thrombosis. Superficial venous thrombosis in the proximal greater saphenous vein 2.8 cm from the confluence with the common femoral vein. Dictated by: Mehul Contreras M.D. on 06/19/2025 at 1:16 Approved by: Mehul Contreras M.D. on 06/19/2025 at 1:18
[2025-06-19 00:39] LABS: Add Manual Diff / Slide Review NO; Hematocrit 29.7 % (41-53); Hemoglobin 9.9 g/dL (13.5-17.5); Lymphocytes Absolute Auto 2300 /uL (1100-4500); Mean Corpuscular HGB Conc 33.3 % (30-36); Mean Corpuscular Hemoglobin 28.2 PG (26-34); Mean Corpuscular Volume 84.8 fL (80-100); Platelet Count 289 X10^3/uL (150-400)
[2025-06-19 01:17] LABS: Alanine Aminotransferase 19 IU/L (<50); Albumin 3.7 g/dL (3.5-5.0); Albumin Globulin Ratio 1.2 (1.0-2.8); Alkaline Phosphatase 124 U/L (38-126); Blood Urea Nitrogen 31 mg/dL (9-20); Calcium 8.3 mg/dL (8.4-10.2); Carbon Dioxide 32 mmol/L (22-32); Chloride 95 mmol/L (98-107); Estimated Glomerular Filt Rate > 60 mL/min (>60); Globulin 3.0 g/dL (1.7-4.1); Glucose 190 mg/dL (70-99); HEMOLYSIS < 15 (0-50); Potassium 4.0 mmol/L (3.4-5.1); Sodium 135 mmol/L (137-145); Total Protein 6.7 g/dL (6.3-8.2)
[2025-06-19 01:18] VITALS: O2SAT 99
[2025-06-19 01:19] VITALS: BP 129/63; PULSE 86; RESP 20; O2SAT 98
[2025-06-19] MEDS: APIXABAN 5 MG TABLET PO (02:12)
== END 2025-06-19 02:14 | disposition home or self-care (01) ==
PROVIDERS: Emergency Provider Emergency Medicine; PCP Family Medicine
DX: I80.02 Phlebitis and thrombophlebitis of superficial vessels of left lower extremity (principal); L03.116 Cellulitis of left lower limb
CPT/HCPCS: 80053; 85025; 85651; 86140; 93971; 99283; 99284

== ENCOUNTER → 2025-06-20 09:16 | Outpatient (CLI) | payer OTHER, SELFPAY ==
[2025-05-23 17:12] VITALS: PULSE 106; RESP 24; O2SAT 94
[2025-06-20 09:44] LABS: Add Manual Diff / Slide Review NO; Hematocrit 30.9 % (41-53); Hemoglobin 10.1 g/dL (13.5-17.5); Lymphocytes Absolute Auto 1200 /uL (1100-4500); Mean Corpuscular HGB Conc 32.6 % (30-36); Mean Corpuscular Hemoglobin 28.0 PG (26-34); Mean Corpuscular Volume 85.9 fL (80-100); Platelet Count 328 X10^3/uL (150-400)
[2025-06-20 09:55] LABS: Alanine Aminotransferase 21 IU/L (<50); Albumin 4.1 g/dL (3.5-5.0); Albumin Globulin Ratio 1.3 (1.0-2.8); Alkaline Phosphatase 119 U/L (38-126); Blood Urea Nitrogen 34 mg/dL (9-20); Calcium 8.4 mg/dL (8.4-10.2); Carbon Dioxide 28 mmol/L (22-32); Chloride 95 mmol/L (98-107); Estimated Glomerular Filt Rate > 60 mL/min (>60); Globulin 3.2 g/dL (1.7-4.1); Glucose 264 mg/dL (70-99); HEMOLYSIS < 15 (0-50); Potassium 4.8 mmol/L (3.4-5.1); Sodium 132 mmol/L (137-145); Total Protein 7.3 g/dL (6.3-8.2)
== END ==
PROVIDERS: PCP Family Medicine; Referring Provider Student in an Organized Health Care Education/Training Program; Visit Provider Student in an Organized Health Care Education/Training Program
DX: D59.12 Cold autoimmune hemolytic anemia (principal)
CPT/HCPCS: 36415; 80053; 83615; 85025

== ENCOUNTER → 2025-06-26 12:56 | Outpatient (CLI) | payer OTHER, SELFPAY ==
[2025-05-23 17:12] VITALS: PULSE 106; RESP 24; O2SAT 94
== END ==
LOC: WC 12:59
PROVIDERS: Family Provider Family Medicine; PCP Family Medicine; Referring Provider Physician Assistant; Visit Provider Surgery
DX: L89.893 Pressure ulcer of other site, stage 3 (principal); R60.0 Localized edema; I87.2 Venous insufficiency (chronic) (peripheral); E11.628 Type 2 diabetes mellitus with other skin complications; Z79.01 Long term (current) use of anticoagulants
CPT/HCPCS: 11042; 99213

== ENCOUNTER 2025-07-01 21:15 | Observation (INO) | payer OTHER, SELFPAY ==
[2025-05-23 17:12] VITALS: PULSE 106; RESP 24; O2SAT 94
[2025-07-01 21:45] VITALS: BP 112/66; PULSE 107; RESP 18; TEMP 36.7; O2SAT 95; BMI 37.7
[2025-07-02] VITALS (9 sets, daily range): BP systolic 110–134; BP diastolic 62–84; PULSE 82–99; RESP 16–18; TEMP 36.1–36.9; O2SAT 92–100; BMI 37.7
--- NOTE | 2025-07-02 00:43 | ED.WEAKNESS ---
HPI - Weakness General Chief complaint: Weakness Stated complaint: Agglutinin dz, dizzy, fatigue Time Seen by Provider: 07/01/25 22:11 Source: patient Mode of arrival: Wheelchair History of Present Illness HPI Narrative: 55-year-old gentleman history of LLE dx 2 weeks ago with dvt on eliquis, recent diagnosis of cold agglutinin disease, was at [facility] for over 3.5 weeks with 5 units of blood transfusion and also treated pneumonia presents with fatigue and weakness for 2 days sleeping for the past 24-48 hours with no energy. Patient denies chest pain, shortness breath, dyspnea on exertion, fever, chills, body aches, urinary complaints, rash. Other than what is stated 14 point review of system is negative. Related Data Home Medications ?Medication ?Instructions ?Recorded ?Confirmed spironolactone 25 mg tablet 25 mg PO BID 12/28/23 06/14/25 furosemide 40 mg tablet See Rx Instructions .Route 06/10/24 06/14/25 .COMPLEX PRN Swelling beclomethasone dipropionate 80 See Rx Instructions .Route .COMPLEX 05/18/25 06/14/25 mcg/actuation HFA breath activated aerosol (Qvar RediHaler) tiotropium bromide 18 mcg capsule See Rx Instructions .Route .COMPLEX 05/18/25 06/14/25 with inhalation device (Spiriva with HandiHaler) dapagliflozin propanediol 10 mg 10 mg PO DAILY 06/14/25 06/14/25 tablet dupilumab 300 mg/2 mL subcutaneous 300 mg SUBCUT Q2W 06/14/25 06/14/25 pen injector famotidine 20 mg tablet 20 mg PO BID 06/14/25 06/14/25 levofloxacin 250 mg tablet 250 mg PO DAILY 06/14/25 06/14/25 varenicline tartrate 0.5 mg (11)-1 See Rx Instructions PO PER PKG DIR 06/14/25 06/14/25 mg (42) tablets in a dose pack Previous Rx's ?Medication ?Instructions ?Recorded epinephrine 0.3 mg/0.3 mL 0.3 mg (0.3 mL) IM SEE 07/17/19 injection, auto-injector (EpiPen INSTRUCTIONS #2 ea 2-Nura) nicotine 14 mg/24 hr daily 1 patch transdermal DAILY #14 ea 06/12/24 transdermal patch (Nicoderm CQ) albuterol sulfate 90 mcg/actuation See Rx Instructions .Route 01/31/25 aerosol inhaler .COMPLEX #8.5 grams ferrous gluconate 324 mg (37.5 mg 324 mg PO DAILY #90 tabs 01/31/25 iron) tablet finasteride 5 mg tablet 5 mg PO DAILY #90 tabs 01/31/25 losartan 100 mg tablet 100 mg PO DAILY #90 tabs 01/31/25 Held on 06/14/25. Instructions: Home Medication placed on hold at Doctor's office prednisone 10 mg tablet 10 mg PO BEDTIME #90 tabs 01/31/25 cyclobenzaprine 10 mg tablet 10 mg PO TID PRN muscle spasm #180 02/01/25 tabs gabapentin 600 mg tablet 1,200 mg (2 x 600 mg) PO TID #240 02/27/25 tabs lidocaine 5 % topical patch 1 patch topical DAILY #30 ea 02/27/25 (Lidoderm) metformin 500 mg tablet See Rx Instructions .Route 03/07/25 .COMPLEX #360 tabs tirzepatide 10 mg/0.5 mL 10 mg (0.5 mL) SUBCUT QWEEK #2 mL 04/26/25 subcutaneous pen injector (Maheshunapplero) amlodipine 10 mg tablet 10 mg PO DAILY #90 tabs 05/07/25 mometasone-formoterol HFA 200 See Rx Instructions .Route 05/07/25 mcg-5 mcg/actuation aerosol .COMPLEX #13 grams inhaler (Dulera) nicotine (polacrilex) 2 mg buccal 2 mg buccal Q2-4H PRN nicotine 05/16/25 mini lozenge cravings #81 ea nicotine 14 mg/24 hr daily 1 patch transdermal DAILY #28 ea 05/16/25 transdermal patch trazodone 150 mg tablet 150 mg PO BEDTIME PRN insomnia #30 05/16/25 tabs buprenorphine 2 mg-naloxone 0.5 mg See Rx Instructions buccal 05/18/25 sublingual film (Suboxone) .COMPLEX #30 ea buprenorphine 2 mg-naloxone 0.5 mg See Rx Instructions buccal 06/14/25 sublingual film (Suboxone) .COMPLEX #30 ea apixaban 5 mg tablet (Eliquis) 5 mg PO BID #180 tabs 06/19/25 levofloxacin 500 mg tablet 500 mg PO DAILY #7 tabs 06/19/25 oxycodone-acetaminophen 10 mg-325 See Rx Instructions PO .COMPLEX 06/26/25 mg tablet (Percocet) PRN pain #120 tabs diazepam 2 mg tablet 4 mg (2 x 2 mg) PO BEDTIME PRN 06/27/25 sleep #60 tabs venlafaxine 75 mg tablet,extended See Rx Instructions .Route 06/27/25 release 24 hr .COMPLEX #90 tabs Allergies Allergy/AdvReac Type Severity Reaction Status Date / Time clindamycin Allergy Intermediate Verified 07/01/25 21:45 cephalexin (CEPHALEXIN) Allergy Mild FACIAL Verified 07/01/25 21:45 SWELLING terbinafine (TERBINAFINE) Allergy Unknown Unknown Verified 07/01/25 21:45 nut - unspecified Allergy Anaphylaxis Verified 07/01/25 21:45 benralizumab (From Fasenra) AdvReac Severe SOB Verified 07/01/25 21:45 Penicillins (PENICILLINS) AdvReac Severe Facial/mouth Verified 07/01/25 21:45 numbness, mouth/lip swelling Cephalosporins AdvReac Intermediate Vomiting Verified 07/01/25 21:45 (CEPHALOSPORINS) Beta-Blockers AdvReac Mild ASTHMA Verified 07/01/25 21:45 (Beta-Adrenergic Bloc doxycycline (DOXYCYCLINE) AdvReac Mild HIVES Verified 07/01/25 21:45 nadolol (NADOLOL) AdvReac Mild AGGREVATES Verified 07/01/25 21:45 ASTHMA semaglutide (From Ozempic) AdvReac Mild CONSTIPATIO Verified 07/01/25 21:45 N Sulfa (Sulfonamide AdvReac Mild VOMITING Verified 07/01/25 21:45 Antibiotics) (SULFA (SULFONAMIDE ANTIBIOTICS)) Review of Systems Review of Systems ROS Unobtainable: All systems reviewed & are unremarkable except as noted in HPI and below Patient History Medical History Cervical stenosis of spinal canal Chronic pain syndrome EMA (generalized anxiety disorder) 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 Well-developed patient, in mild distress. HEAD: Atraumatic. Normocephalic. EYES: Pupils equal round and reactive. Extraocular motions intact. No scleral icterus. No injection or drainage. ENT: Nose without bleeding, purulent drainage. Throat without erythema, tonsillar hypertrophy or exudate. Airway patent. NECK: Trachea midline. Non tender CARDIOVASCULAR: Regular rate and rhythm without murmurs, gallops, or rubs. RESPIRATORY: Clear to auscultation. Breath sounds equal bilaterally. No wheezes, rales, or rhonchi. GASTROINTESTINAL: Abdomen soft, non-tender, nondistended. EXTREMITIES: No edema or joint tenderness. BACK: Nontender without deformity or crepitance. No flank tenderness. NEURO: AOx3. SKIN: No rash or erythema of visible areas Initial Vital Signs Initial Vital Signs: Vital Signs Temperature 98.0 F 07/01/25 21:45 Pulse Rate 107 H 07/01/25 21:45 Respiratory Rate 18 07/01/25 21:45 Blood Pressure 112/66 07/01/25 21:45 Pulse Oximetry 95 07/01/25 21:45 Oxygen Delivery Method Room Air 07/01/25 21:45 Course Vital Signs Vital signs: Vital Signs - 8 hr 07/01/25 21:45 Temperature 98.0 F Pulse Rate 107 H Respiratory Rate 18 Blood Pressure 112/66 Pulse Oximetry 95 Oxygen Delivery Method Room Air MDM - Weakness Imaging Data Chest x-ray: Radiologist Impression: Patient: Bandar George MR#: [id number] : 1970 Acct:[id number] Age/Sex: 55 / M Date of Service: 07/02/25 Loc: ED Accession Number: [id number] Procedure: XR chest 2V Ordering Provider: Dereck Renee D.O. PROCEDURE: XR CHEST 2V INDICATIONS: weakness TECHNIQUE: 2 views of the chest were acquired. COMPARISON: [facility], CR, XR CHEST 1V, 06/14/2025, 23:42. [facility], CR, XR CHEST 1V, 06/07/2025, 21:11. FINDINGS: Surgical changes and devices: None. Lungs and pleura: No consolidation. No pleural effusions or pneumothorax. Mediastinum: Mediastinal contours are unchanged. Heart size is normal. Bones and chest wall: No suspicious bony abnormalities. Soft tissues appear unremarkable. IMPRESSION: No acute cardiopulmonary abnormality is seen. Dictated by: Rio Giles M.D. on 07/02/2025 at 2:26 Approved by: Rio Giles M.D. on 07/02/2025 at 2:27 MDM Narrative Medical decision making narrative: Vital signs, nurse triage note, medication list, previous ER visits, and all imaging studies reviewed. Chest x-ray showed no acute cardiopulmonary abnormality. WBC 16.1 hemoglobin 11.7 platelet 260. Sodium 132 potassium 4.1 chloride 93 CO2 31 BUN 53 creatinine 1.09 glucose 158 magnesium 1 lactic acid 0.9 LFTs normal troponin less than 0.012 BNP 111 lipase 30. Urine shows no acute process. Patient given lactated ringer 1 L bolus, magnesium sulfate 2 g IV x1, Levaquin 750 mg IV x1. Differential diagnosis sepsis, UTI, pneumonia, dehydration, COVID flu RSV. Case discussed with who has graciously accepted the patient for inpatient admission Discharge Plan Departure Patient Disposition: Admitted as Observation Clinical Impression: Weak Admit Date/Time: 07/02/25 03:03 Admit Provider: Francisco Smith
[2025-07-02 01:14] LABS: Add Manual Diff / Slide Review NO; Hematocrit 35.3 % (41-53); Hemoglobin 11.7 g/dL (13.5-17.5); Lymphocytes Absolute Auto 1900 /uL (1100-4500); Mean Corpuscular HGB Conc 33.2 % (30-36); Mean Corpuscular Hemoglobin 28.1 PG (26-34); Mean Corpuscular Volume 84.9 fL (80-100); Platelet Count 260 X10^3/uL (150-400)
--- NOTE | 2025-07-02 01:22 | DI.RAD.S_ITS ---
PROCEDURE: XR CHEST 2V INDICATIONS: weakness TECHNIQUE: 2 views of the chest were acquired. COMPARISON: [facility], , XR CHEST 1V, 06/14/2025, 23:42. [facility], CR, XR CHEST 1V, 06/07/2025, 21:11. FINDINGS: Surgical changes and devices: None. Lungs and pleura: No consolidation. No pleural effusions or pneumothorax. Mediastinum: Mediastinal contours are unchanged. Heart size is normal. Bones and chest wall: No suspicious bony abnormalities. Soft tissues appear unremarkable. IMPRESSION: No acute cardiopulmonary abnormality is seen. Dictated by: Rio Giles M.D. on 07/02/2025 at 2:26 Approved by: Rio Giles M.D. on 07/02/2025 at 2:27
[2025-07-02 01:41] LABS: Alanine Aminotransferase 17 IU/L (<50); Albumin 4.5 g/dL (3.5-5.0); Albumin Globulin Ratio 1.4 (1.0-2.8); Alkaline Phosphatase 113 U/L (38-126); Blood Urea Nitrogen 53 mg/dL (9-20); Calcium 9.4 mg/dL (8.4-10.2); Carbon Dioxide 31 mmol/L (22-32); Chloride 93 mmol/L (98-107); Creatine Kinase < 20 U/L (55-170); Estimated Glomerular Filt Rate > 60 mL/min (>60); Globulin 3.3 g/dL (1.7-4.1); Glucose 158 mg/dL (70-99); HEMOLYSIS 17 (0-50); Lipase 30 U/L (23-300); Magnesium 1.0 mg/dL (1.6-2.3); Potassium 4.1 mmol/L (3.4-5.1); Sodium 132 mmol/L (137-145); Total Protein 7.8 g/dL (6.3-8.2)
[2025-07-02 01:52] LABS: NT-proBNP (BNP-Adult 18+) 111 pg/mL (<125); Troponin I < 0.012 ng/mL (0.01-0.034)
[2025-07-02] MEDS: LACTATED RINGERS 1,000 ML 1000 ML IV (02:00)
[2025-07-02 02:47] LABS: Lactate (Lactic Acid) 0.9 mmol/L (0.7-2.1)
[2025-07-02] MEDS: MAGNESIUM SULFATE 2 GM/50 ML PIGGYBACK IV (03:06)
[2025-07-02 04:02] LABS: Influenza A - CEPHEID Flu A NEGATIVE (NEGATIVE); Influenza B - CEPHEID Flu B NEGATIVE (NEGATIVE)
[2025-07-02 04:03] LABS: COVID-19 CEPHEID 4-PLEX PCR Negative (Negative)
[2025-07-02] MEDS: SODIUM CHLORIDE 0.9% 1,000 ML 100 ML IV ×2 (04:12→15:37)
--- NOTE | 2025-07-02 05:50 | PM.HP.1 ---
History of Present Illness History of Present Illness Date Patient Seen: 07/02/25 Time Patient Seen: 01:24 Chief complaint: Agglutinin dz, dizzy, fatigue Narrative: 55 year old male with past medical history of asthma, anxiety/depression, and recent diagnosis of left lower extremity DVT on Eliquis as well as cold agglutinin disease presents with complaint of fatigue and lightheadedness. Per the patient's report, the patient was seen at [facility] 3-1/2 weeks ago and was diagnosed with cold glutenin disease in the setting of anemia requiring blood transfusion. The patient at that time was also treated for pneumonia. The patient also recently had a living the patient states that he has increasing fatigue and generalized weakness but denies any fever, chills, body aches, diarrhea, chest pain or shortness of breath. In the emergency room, the patient remains hemodynamically stable and afebrile. Labs were relatively benign except for WBC of 16,000. Hemoglobin 11.7. Sodium 132 magnesium 1.0. Viral respiratory negative. UA and chest x-ray were reported negative without any sign of infection. As patient has multiple allergies to antibiotic including penicillin which might have caused him to have cold agglutinin disease per his report. 2 g of mag sulfate was also ordered. Blood cultures were drawn after IV antibiotic. [facility] Medical History Cervical stenosis of spinal canal Chronic pain syndrome EMA (generalized anxiety disorder) 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 Hyperlipidemia Hypertension Iron deficiency anemia Myocarditis OCD (obsessive compulsive disorder) Tobacco use disorder Varicose vein of leg Surgical History No pertinent past surgical history Social History marital status: unmarried,single household members: significant other lives independently: Yes occupational status: disabled alcohol intake: never substance use type: does not use Meds Home Medications and Allergies Home Medications ?Medication ?Instructions ?Recorded ?Confirmed ?Type epinephrine 0.3 mg/0.3 mL 0.3 mg (0.3 mL) IM SEE 07/17/19 06/14/25 Rx injection, auto-injector (EpiPen INSTRUCTIONS #2 ea 2-Nura) spironolactone 25 mg tablet 25 mg PO BID 12/28/23 06/14/25 History furosemide 40 mg tablet See Rx Instructions .Route 06/10/24 06/14/25 History .COMPLEX PRN Swelling nicotine 14 mg/24 hr daily 1 patch transdermal DAILY #14 ea 06/12/24 06/14/25 Rx transdermal patch (Nicoderm CQ) albuterol sulfate 90 mcg/actuation See Rx Instructions .Route 01/31/25 06/14/25 Rx aerosol inhaler .COMPLEX #8.5 grams ferrous gluconate 324 mg (37.5 mg 324 mg PO DAILY #90 tabs 01/31/25 06/14/25 Rx iron) tablet finasteride 5 mg tablet 5 mg PO DAILY #90 tabs 01/31/25 06/14/25 Rx losartan 100 mg tablet 100 mg PO DAILY #90 tabs 01/31/25 06/14/25 Rx Held on 06/14/25. Instructions: Home Medication placed on hold at Doctor's office prednisone 10 mg tablet 10 mg PO BEDTIME #90 tabs 01/31/25 06/14/25 Rx cyclobenzaprine 10 mg tablet 10 mg PO TID PRN muscle spasm #180 02/01/25 06/14/25 Rx tabs gabapentin 600 mg tablet 1,200 mg (2 x 600 mg) PO TID #240 02/27/25 06/14/25 Rx tabs lidocaine 5 % topical patch 1 patch topical DAILY #30 ea 02/27/25 06/14/25 Rx (Lidoderm) metformin 500 mg tablet See Rx Instructions .Route 03/07/25 06/14/25 Rx .COMPLEX #360 tabs tirzepatide 10 mg/0.5 mL 10 mg (0.5 mL) SUBCUT QWEEK #2 mL 04/26/25 06/14/25 Rx subcutaneous pen injector (Mounapplero) amlodipine 10 mg tablet 10 mg PO DAILY #90 tabs 05/07/25 06/14/25 Rx mometasone-formoterol HFA 200 See Rx Instructions .Route 05/07/25 06/14/25 Rx mcg-5 mcg/actuation aerosol .COMPLEX #13 grams inhaler (Dulera) nicotine (polacrilex) 2 mg buccal 2 mg buccal Q2-4H PRN nicotine 05/16/25 06/14/25 Rx mini lozenge cravings #81 ea nicotine 14 mg/24 hr daily 1 patch transdermal DAILY #28 ea 05/16/25 06/14/25 Rx transdermal patch trazodone 150 mg tablet 150 mg PO BEDTIME PRN insomnia #30 05/16/25 06/27/25 Rx tabs beclomethasone dipropionate 80 See Rx Instructions .Route .COMPLEX 05/18/25 06/14/25 History mcg/actuation HFA breath activated aerosol (Qvar RediHaler) buprenorphine 2 mg-naloxone 0.5 mg See Rx Instructions buccal 05/18/25 06/14/25 Rx sublingual film (Suboxone) .COMPLEX #30 ea tiotropium bromide 18 mcg capsule See Rx Instructions .Route .COMPLEX 05/18/25 06/14/25 History with inhalation device (Spiriva with HandiHaler) buprenorphine 2 mg-naloxone 0.5 mg See Rx Instructions buccal 06/14/25 06/14/25 Rx sublingual film (Suboxone) .COMPLEX #30 ea dapagliflozin propanediol 10 mg 10 mg PO DAILY 06/14/25 06/14/25 History tablet dupilumab 300 mg/2 mL subcutaneous 300 mg SUBCUT Q2W 06/14/25 06/14/25 History pen injector famotidine 20 mg tablet 20 mg PO BID 06/14/25 06/14/25 History levofloxacin 250 mg tablet 250 mg PO DAILY 06/14/25 06/14/25 History varenicline tartrate 0.5 mg (11)-1 See Rx Instructions PO PER PKG DIR 06/14/25 06/14/25 History mg (42) tablets in a dose pack apixaban 5 mg tablet (Eliquis) 5 mg PO BID #180 tabs 06/19/25 Rx levofloxacin 500 mg tablet 500 mg PO DAILY #7 tabs 06/19/25 Rx oxycodone-acetaminophen 10 mg-325 See Rx Instructions PO .COMPLEX 06/26/25 Rx mg tablet (Percocet) PRN pain #120 tabs diazepam 2 mg tablet 4 mg (2 x 2 mg) PO BEDTIME PRN 06/27/25 06/27/25 Rx sleep #60 tabs venlafaxine 75 mg tablet,extended See Rx Instructions .Route 06/27/25 06/27/25 Rx release 24 hr .COMPLEX #90 tabs Allergies Allergy/AdvReac Type Severity Reaction Status Date / Time clindamycin Allergy Intermediate Verified 07/01/25 21:45 cephalexin (CEPHALEXIN) Allergy Mild FACIAL Verified 07/01/25 21:45 SWELLING terbinafine (TERBINAFINE) Allergy Unknown Unknown Verified 07/01/25 21:45 nut - unspecified Allergy Anaphylaxis Verified 07/01/25 21:45 benralizumab (From Fasenra) AdvReac Severe SOB Verified 07/01/25 21:45 Penicillins (PENICILLINS) AdvReac Severe Facial/mouth Verified 07/01/25 21:45 numbness, mouth/lip swelling Cephalosporins AdvReac Intermediate Vomiting Verified 07/01/25 21:45 (CEPHALOSPORINS) Beta-Blockers AdvReac Mild ASTHMA Verified 07/01/25 21:45 (Beta-Adrenergic Bloc doxycycline (DOXYCYCLINE) AdvReac Mild HIVES Verified 07/01/25 21:45 nadolol (NADOLOL) AdvReac Mild AGGREVATES Verified 07/01/25 21:45 ASTHMA semaglutide (From Ozempic) AdvReac Mild CONSTIPATIO Verified 07/01/25 21:45 N Sulfa (Sulfonamide AdvReac Mild VOMITING Verified 07/01/25 21:45 Antibiotics) (SULFA (SULFONAMIDE ANTIBIOTICS)) Review of Systems Review of Systems ROS: Yes All systems reviewed with the patient and are negative except as otherwise documented Exam Vital Signs (past 8 hours): - 07/02/25 03:50 07/02/25 04:00 07/02/25 04:00 Pulse Rate 94 H 93 H Respiratory Rate 18 18 Blood Pressure 120/69 125/66 Pulse Oximetry 96 92 Oxygen Delivery Method Room Air Room Air Oxygen Delivery Method Room Air Narrative Exam Narrative: Physical Exam: GENERAL: The patient is not in any acute distressed. Awake and alert. HEENT: Nonicteric sclerae, PERRLA, EOMI. Oropharynx clear. Moist mucous membranes. Conjunctivae appear well perfused. HEART: Regular rate and rhythm without murmurs. No lower extremities edema. LUNGS: Clear to auscultation bilaterally. No wheezing, crackles or rhonchi ABDOMEN: Soft, positive bowel sounds, nontender. SKIN: No rash, no excessive bruising, petechiae, or purpura. NEUROLOGIC: AxO x 3. Cranial nerves II-XII intact without motor/sensory deficit. Objective Labs 07/02/25 00:55 07/02/25 00:55 Labs: Laboratory Results - last 24 hr 07/02/25 07/02/25 07/02/25 00:55 02:15 02:37 WBC 16.1 H RBC 4.16 L Hgb 11.7 L Hct 35.3 L MCV 84.9 MCH 28.1 MCHC 33.2 RDW 18.3 H Plt Count 260 Neut % (Auto) 76.4 H Lymph % (Auto) 11.6 L Garrett % (Auto) 10.6 Eos % (Auto) 0.4 L Baso % (Auto) 1.0 Neut # (Auto) 76865 H Lymph # (Auto) 1900 Garrett # (Auto) 1700 H Eos # (Auto) 100 Baso # (Auto) 200 H Sodium 132 L Potassium 4.1 Chloride 93 L Carbon Dioxide 31 BUN 53 H Creatinine 1.09 Estimated GFR > 60 BUN/Creatinine Ratio 48.6 H Glucose 158 H Lactate 0.9 Calcium 9.4 Magnesium 1.0 L Total Bilirubin 0.2 AST 20 ALT 17 Alkaline Phosphatase 113 Total Creatine Kinase < 20 L Troponin I < 0.012 NT-Pro-B Natriuret Pep 111 Total Protein 7.8 Albumin 4.5 Globulin 3.3 Albumin/Globulin Ratio 1.4 Lipase 30 SARS-CoV-2 (PCR) Negative Influenza A (RT-PCR) Flu a negative Influenza B (RT-PCR) Flu b negative RSV (PCR) Negative Assessment & Plan Assessment & Plan narrative: Generalized weakness with hypomagnesemia. Admit the patient to medical telemetry under observation. Replace magnesium and monitor level. PT OT. Patient could possibly have underlying infection though not clear at this time by my contribution to generalized weakness. Leukocytosis. WBC 16,000. No clear sign of infection as UA and chest x-ray shows no UTI or pneumonia respectively. Patient was given empiric IV. Cultures from blood that was drawn and de-escalate antibiotic accordingly. Dehydration. IVF. Recent left lower extremity DVT. Resume home Eliquis. Depression anxiety. Resume home medication. DVT prophylaxis Eliquis. CODE STATUS full code. Disposition likely home in 1 to 2 days - As the provider of this telehealth evaluation, requested by the patient's evaluating physician, I attest that I introduced myself to the patient, provided my credentials and determined that telemedicine via a real-time, 2 way interactive audio and video platform is an appropriate and effective means of providing this service. - I reviewed the patient's chart and had a discussion with the member of the patient's treatment team. - The patient and I mutually agreed with continuation of this evaluation via telemedicine. The patient consented for the telemedicine evaluation. - This virtual encounter was taken place from [place] by Dr. Francisco Smith. The patient was evaluated at [facility]. The encounter was approximately 35 minutes. The nurse was present during the entire time of the encounter and was able assists with the stethoscope to listen to the patients. Time-Based Coding :: [TOTAL MINUTES] spent with patient and on the chart (including review of chart, obtaining history, exam, reviewing outside data, placing orders, documenting exam and treatment plan, and counseling patient) on [DATE].
[2025-07-02] MEDS: CYCLOBENZAPRINE 10 MG TABLET PO ×3 (09:50→21:30)
[2025-07-02] MEDS: APIXABAN 5 MG TABLET PO ×2 (09:50→21:30)
[2025-07-02] MEDS: GABAPENTIN 600 MG TABLET 1200 MG PO ×3 (09:51→21:30)
[2025-07-02] MEDS: VENLAFAXINE ER 75 MG CAP PO (10:07)
--- NOTE | 2025-07-02 14:34 | CM.DANOTE ---
Patient is a 55 yo male who was admitted OBS Status on 07/02/25 today for Hypomagnesemia/Weakness. Pt has [employer] AGGARWAL for insurance and his PCP is Dr. Ricardo Victoria at [facility]. EMR was reviewed. Per MD, pt with recent DVT and PNA and was here in May 2025 and transferred to [facility] for higher level of care needs. Pt began having increased weakness and fatigue and admitted with higher white count, possibly from cellulitis, and getting IV abx. SW met bedside with pt and explained role and he confirms he lives at home in [place] with his Life Partner Silvestre. Don works from home and pt was at [facility] for 3.5 weeks before discharging home about 2 weeks ago. Pt has no hx of HH or SNF but states he feels HH may have been helpful when he discharged home. Pt hired [facility] (maybe from [facility]) 3xs a week for 4hrs for additional assist while Don is working. Pt has chronic pain/injury that has caused him to be disabled' and unable to work but has been able to ambulate independently. Pt also now established with [facility] from pressure ulcer after being in the hospital for a few weeks and has only had one appointment so far. Pt confirms preference is to d/c home with Don and PP CGs and wants to see how he is feeling tomorrow to determine if PT eval needed and if he feels HH needed at d/c. OLIVER Ascencio Discharge Planning/Care Management CM Discharge Assessment Start: 07/02/25 04:28 Freq: Status: Active Protocol: Document 07/02/25 14:31 BF (Rec: 07/02/25 14:34 BF [email or web address]) Discharge Planning Assessment Assigned Discharge OLIVER [place] Area Field Worker Provider Ricardo Victoria Insurance Jerry SIMMS/Assigned spouse Don Designee Name Contact Information [phone] Advance Directives? Yes Advance Directives No on File History Provided By Patient,Family Member,Medical Record Has Patient been No admitted in last 30 days? Comment Here in May 2025 and transferred to [facility] Prior Living House Arrangements Household Members significant other Type of Drives own vehicle transporation used prior to admit Independent with ADL Yes: mostly, does have assist when needed 's Is patient alert and Yes oriented? Needs Assistance Home Chores / Shopping With Caregiver for No Another Comment Has private CG agency (he couldn't recall the name) 3x week for 4 hrs DME Already Rented / FWW / Walker Owned Patient/Family Home with Home Health Preference Barriers to No Discharge Discharge Plan Home with Home Health Transportation Partner Arrangement Additional Comment Pt anticipates possible HH Medicare Choice List Yes Provided Medicare choice list patient reviewed on electronic tablet with Whiteboard Updated Yes in Patient Room with name and ext. # of Stencil Maker Review Status In Process Please Provide Date 07/02/25 Initial DC Assessment Was Performed Next Review Type Continued Stay Review
--- NOTE | 2025-07-02 15:17 | PM.HP.1 ---
History of Present Illness History of Present Illness Date Patient Seen: 07/02/25 Chief complaint: Agglutinin dz, dizzy, fatigue Narrative: Chief complaint: Malaise leukocytosis and chronic leg wound in the setting of cold agglutinin (IgM) History of present illness: 07/02: 55 year old male with past medical history of asthma, anxiety/depression, and recent diagnosis of left lower extremity DVT on Eliquis as well as cold agglutinin disease presents with complaint of fatigue and lightheadedness. Per the patient's report, the patient was seen at [facility] 3-1/2 weeks ago and was diagnosed with cold glutenin disease in the setting of anemia requiring blood transfusion. The patient at that time was also treated for pneumonia. The patient also recently had a living the patient states that he has increasing fatigue and generalized weakness but denies any fever, chills, body aches, diarrhea, chest pain or shortness of breath. In the emergency room, the patient remains hemodynamically stable and afebrile. Labs were relatively benign except for WBC of 16,000. Hemoglobin 11.7. Sodium 132 magnesium 1.0. Viral respiratory negative. UA and chest x-ray were reported negative without any sign of infection. As patient has multiple allergies to antibiotic including penicillin which might have caused him to have cold agglutinin disease per his report. 2 g of mag sulfate was also ordered. Blood cultures were drawn after IV antibiotic. Hospital course: Later in the afternoon patient is feeling much better after 1st dose of Levaquin. Review of systems: Less fatigued No rigors or chills overnight No chest pain palpitations shortness for breath No nausea vomiting diarrhea Physical exam: Alert cogent oriented no acute distress HEENT unremarkable No labored respiration Chronic erythema and ulceration left ankle with chronic brawny edema Slightly erythematous areas skin in the para perineal area Assessment and plan: ?Medication ?Instructions ?Recorded ?Confirmed ?Type epinephrine 0.3 mg/0.3 mL 0.3 mg (0.3 mL) IM SEE 07/17/19 06/14/25 Rx injection, auto-injector (EpiPen INSTRUCTIONS #2 ea 2-Nura) spironolactone 25 mg tablet 25 mg PO BID 12/28/23 06/14/25 History furosemide 40 mg tablet See Rx Instructions .Route 06/10/24 06/14/25 History .COMPLEX PRN Swelling nicotine 14 mg/24 hr daily 1 patch transdermal DAILY #14 ea 06/12/24 06/14/25 Rx transdermal patch (Nicoderm CQ) albuterol sulfate 90 mcg/actuation See Rx Instructions .Route 01/31/25 06/14/25 Rx aerosol inhaler .COMPLEX #8.5 grams ferrous gluconate 324 mg (37.5 mg 324 mg PO DAILY #90 tabs 01/31/25 06/14/25 Rx iron) tablet finasteride 5 mg tablet 5 mg PO DAILY #90 tabs 01/31/25 06/14/25 Rx losartan 100 mg tablet 100 mg PO DAILY #90 tabs 01/31/25 06/14/25 Rx Held on 06/14/25. Instructions: Home Medication placed on hold at Doctor's office prednisone 10 mg tablet 10 mg PO BEDTIME #90 tabs 01/31/25 06/14/25 Rx cyclobenzaprine 10 mg tablet 10 mg PO TID PRN muscle spasm #180 02/01/25 06/14/25 Rx tabs gabapentin 600 mg tablet 1,200 mg (2 x 600 mg) PO TID #240 02/27/25 06/14/25 Rx tabs lidocaine 5 % topical patch 1 patch topical DAILY #30 ea 02/27/25 06/14/25 Rx (Lidoderm) metformin 500 mg tablet See Rx Instructions .Route 03/07/25 06/14/25 Rx .COMPLEX #360 tabs tirzepatide 10 mg/0.5 mL 10 mg (0.5 mL) SUBCUT QWEEK #2 mL 04/26/25 06/14/25 Rx subcutaneous pen injector (Mounjaro) amlodipine 10 mg tablet 10 mg PO DAILY #90 tabs 05/07/25 06/14/25 Rx mometasone-formoterol HFA 200 See Rx Instructions .Route 05/07/25 06/14/25 Rx mcg-5 mcg/actuation aerosol .COMPLEX #13 grams inhaler (Dulera) nicotine (polacrilex) 2 mg buccal 2 mg buccal Q2-4H PRN nicotine 05/16/25 06/14/25 Rx mini lozenge cravings #81 ea nicotine 14 mg/24 hr daily 1 patch transdermal DAILY #28 ea 05/16/25 06/14/25 Rx transdermal patch trazodone 150 mg tablet 150 mg PO BEDTIME PRN insomnia #30 05/16/25 06/27/25 Rx tabs beclomethasone dipropionate 80 See Rx Instructions .Route .COMPLEX 05/18/25 06/14/25 History mcg/actuation HFA breath activated aerosol (Qvar RediHaler) buprenorphine 2 mg-naloxone 0.5 mg See Rx Instructions buccal 05/18/25 06/14/25 Rx sublingual film (Suboxone) .COMPLEX #30 ea tiotropium bromide 18 mcg capsule See Rx Instructions .Route .COMPLEX 05/18/25 06/14/25 History with inhalation device (Spiriva with HandiHaler) buprenorphine 2 mg-naloxone 0.5 mg See Rx Instructions buccal 06/14/25 06/14/25 Rx sublingual film (Suboxone) .COMPLEX #30 ea dapagliflozin propanediol 10 mg 10 mg PO DAILY 06/14/25 06/14/25 History tablet dupilumab 300 mg/2 mL subcutaneous 300 mg SUBCUT Q2W 06/14/25 06/14/25 History pen injector famotidine 20 mg tablet 20 mg PO BID 06/14/25 06/14/25 History levofloxacin 250 mg tablet 250 mg PO DAILY 06/14/25 06/14/25 History varenicline tartrate 0.5 mg (11)-1 See Rx Instructions PO PER PKG DIR 06/14/25 06/14/25 History mg (42) tablets in a dose pack apixaban 5 mg tablet (Eliquis) 5 mg PO BID #180 tabs 06/19/25 Rx levofloxacin 500 mg tablet 500 mg PO DAILY #7 tabs 06/19/25 Rx oxycodone-acetaminophen 10 mg-325 See Rx Instructions PO .COMPLEX 06/26/25 Rx mg tablet (Percocet) PRN pain #120 tabs diazepam 2 mg tablet 4 mg (2 x 2 mg) PO BEDTIME PRN 06/27/25 06/27/25 Rx sleep #60 tabs venlafaxine 75 mg tablet,extended See Rx Instructions .Route 06/27/25 06/27/25 Rx release 24 hr .COMPLEX #90 tabs Allergies Allergy/AdvReac Type Severity Reaction Status Date / Time clindamycin Allergy Intermediate Verified 07/01/25 21:45 cephalexin (CEPHALEXIN) Allergy Mild FACIAL Verified 07/01/25 21:45 SWELLING terbinafine (TERBINAFINE) Allergy Unknown Unknown Verified 07/01/25 21:45 nut - unspecified Allergy Anaphylaxis Verified 07/01/25 21:45 benralizumab (From Fasenra) AdvReac Severe SOB Verified 07/01/25 21:45 Penicillins (PENICILLINS) AdvReac Severe Facial/mouth Verified 07/01/25 21:45 numbness, mouth/lip swelling Cephalosporins AdvReac Intermediate Vomiting Verified 07/01/25 21:45 (CEPHALOSPORINS) Beta-Blockers AdvReac Mild ASTHMA Verified 07/01/25 21:45 (Beta-Adrenergic Bloc doxycycline (DOXYCYCLINE) AdvReac Mild HIVES Verified 07/01/25 21:45 nadolol (NADOLOL) AdvReac Mild AGGREVATES Verified 07/01/25 21:45 ASTHMA semaglutide (From Ozempic) AdvReac Mild CONSTIPATIO Verified 07/01/25 21:45 N Sulfa (Sulfonamide AdvReac Mild VOMITING Verified 07/01/25 21:45 Antibiotics) (SULFA (SULFONAMIDE ANTIBIOTICS)) Labs: Laboratory Results - last 24 hr 07/02/25 07/02/25 07/02/25 00:55 02:15 02:37 WBC 16.1 H RBC 4.16 L Hgb 11.7 L Hct 35.3 L MCV 84.9 MCH 28.1 MCHC 33.2 RDW 18.3 H Plt Count 260 Neut % (Auto) 76.4 H Lymph % (Auto) 11.6 L [place] % (Auto) 10.6 Eos % (Auto) 0.4 L Baso % (Auto) 1.0 Neut # (Auto) 73321 H Lymph # (Auto) 1900 [place] # (Auto) 1700 H Eos # (Auto) 100 Baso # (Auto) 200 H Sodium 132 L Potassium 4.1 Chloride 93 L Carbon Dioxide 31 BUN 53 H Creatinine 1.09 Estimated GFR > 60 BUN/Creatinine Ratio 48.6 H Glucose 158 H Lactate 0.9 Calcium 9.4 Magnesium 1.0 L Total Bilirubin 0.2 AST 20 ALT 17 Alkaline Phosphatase 113 Total Creatine Kinase < 20 L Troponin I < 0.012 NT-Pro-B Natriuret Pep 111 Total Protein 7.8 Albumin 4.5 Globulin 3.3 Albumin/Globulin Ratio 1.4 Lipase 30 SARS-CoV-2 (PCR) Negative Influenza A (RT-PCR) Flu a negative Influenza B (RT-PCR) Flu b negative RSV (PCR) Negative Assessment & Plan Generalized weakness with hypomagnesemia. Admit the patient to medical telemetry under observation. Replace magnesium and monitor level. Leukocytosis. WBC 16,000. No clear sign of infection as UA and chest x-ray shows no UTI or pneumonia respectively. Patient was given empiric IV. Continue another 24 hour Cultures from blood that was drawn and de-escalate antibiotic accordingly. Dehydration. IVF. Cold agglutinin: Follow up with Hematology Recent left lower extremity DVT. Resume home Eliquis. Depression anxiety. Resume home medication. 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 CODE STATUS Full code. Disposition Likely home in 1 to 2 days Time based billin minutes were involved this patient [id number] evaluation discussion with the patient's review objective laboratory and imaging data discussion with care management team [facility] Medical History Cervical stenosis of spinal canal Chronic pain syndrome EMA (generalized anxiety disorder) 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 Hyperlipidemia Hypertension Iron deficiency anemia Myocarditis OCD (obsessive compulsive disorder) Tobacco use disorder Varicose vein of leg Surgical History No pertinent past surgical history Social History marital status: unmarried,single household members: significant other lives independently: Yes occupational status: disabled alcohol intake: never substance use type: does not use Meds Home Medications and Allergies Home Medications ?Medication ?Instructions ?Recorded ?Confirmed ?Type epinephrine 0.3 mg/0.3 mL 0.3 mg (0.3 mL) IM SEE 07/17/19 07/02/25 Rx injection, auto-injector (EpiPen INSTRUCTIONS #2 ea 2-Nura) spironolactone 25 mg tablet 25 mg PO BID 12/28/23 07/02/25 History furosemide 40 mg tablet See Rx Instructions .Route 06/10/24 07/02/25 History .COMPLEX PRN Swelling albuterol sulfate 90 mcg/actuation See Rx Instructions .Route 01/31/25 07/02/25 Rx aerosol inhaler .COMPLEX #8.5 grams ferrous gluconate 324 mg (37.5 mg 324 mg PO DAILY #90 tabs 01/31/25 07/02/25 Rx iron) tablet finasteride 5 mg tablet 5 mg PO DAILY #90 tabs 01/31/25 07/02/25 Rx losartan 100 mg tablet 100 mg PO DAILY #90 tabs 01/31/25 07/02/25 Rx Held on 06/14/25. Instructions: Home Medication placed on hold at Doctor's office cyclobenzaprine 10 mg tablet 10 mg PO TID PRN muscle spasm #180 02/01/25 07/02/25 Rx tabs gabapentin 600 mg tablet 1,200 mg (2 x 600 mg) PO TID #240 02/27/25 07/02/25 Rx tabs lidocaine 5 % topical patch 1 patch topical DAILY #30 ea 02/27/25 07/02/25 Rx (Lidoderm) amlodipine 10 mg tablet 10 mg PO DAILY #90 tabs 05/07/25 07/02/25 Rx Held on 07/02/25. Instructions: low blood pressure mometasone-formoterol HFA 200 See Rx Instructions .Route 05/07/25 07/02/25 Rx mcg-5 mcg/actuation aerosol .COMPLEX #13 grams inhaler (Dulera) nicotine 14 mg/24 hr daily 1 patch transdermal DAILY #28 ea 05/16/25 07/02/25 Rx transdermal patch trazodone 150 mg tablet 150 mg PO BEDTIME PRN insomnia #30 05/16/25 07/02/25 Rx tabs beclomethasone dipropionate 80 See Rx Instructions .Route .COMPLEX 05/18/25 07/02/25 History mcg/actuation HFA breath activated aerosol (Qvar RediHaler) buprenorphine 2 mg-naloxone 0.5 mg See Rx Instructions buccal 05/18/25 06/14/25 Rx sublingual film (Suboxone) .COMPLEX #30 ea tiotropium bromide 18 mcg capsule See Rx Instructions .Route .COMPLEX 05/18/25 07/02/25 History with inhalation device (Spiriva with HandiHaler) buprenorphine 2 mg-naloxone 0.5 mg See Rx Instructions buccal 06/14/25 06/14/25 Rx sublingual film (Suboxone) .COMPLEX #30 ea dapagliflozin propanediol 10 mg 10 mg PO DAILY 06/14/25 07/02/25 History tablet famotidine 20 mg tablet 20 mg PO BID 06/14/25 07/02/25 History apixaban 5 mg tablet (Eliquis) 5 mg PO BID #180 tabs 06/19/25 07/02/25 Rx oxycodone-acetaminophen 10 mg-325 See Rx Instructions PO .COMPLEX 06/26/25 07/02/25 Rx mg tablet (Percocet) PRN pain #120 tabs diazepam 2 mg tablet 4 mg (2 x 2 mg) PO BEDTIME PRN 06/27/25 07/02/25 Rx sleep #60 tabs venlafaxine 75 mg tablet,extended See Rx Instructions .Route 06/27/25 07/02/25 Rx release 24 hr .COMPLEX #90 tabs metformin 500 mg tablet See Rx Instructions .Route .COMPLEX 07/02/25 07/02/25 History prednisone 10 mg tablet 10 mg PO DAILY 07/02/25 07/02/25 History tirzepatide 10 mg/0.5 mL 10 mg (0.5 mL) SUBCUT QWEEK #2 mL 07/02/25 Rx subcutaneous pen injector (Brunilda) Allergies Allergy/AdvReac Type Severity Reaction Status Date / Time clindamycin Allergy Intermediate Verified 07/01/25 21:45 cephalexin (CEPHALEXIN) Allergy Mild FACIAL Verified 07/01/25 21:45 SWELLING terbinafine (TERBINAFINE) Allergy Unknown Unknown Verified 07/01/25 21:45 nut - unspecified Allergy Anaphylaxis Verified 07/01/25 21:45 benralizumab (From Fasenra) AdvReac Severe SOB Verified 07/01/25 21:45 Penicillins (PENICILLINS) AdvReac Severe Facial/mouth Verified 07/01/25 21:45 numbness, mouth/lip swelling Cephalosporins AdvReac Intermediate Vomiting Verified 07/01/25 21:45 (CEPHALOSPORINS) Beta-Blockers AdvReac Mild ASTHMA Verified 07/01/25 21:45 (Beta-Adrenergic Bloc doxycycline (DOXYCYCLINE) AdvReac Mild HIVES Verified 07/01/25 21:45 nadolol (NADOLOL) AdvReac Mild AGGREVATES Verified 07/01/25 21:45 ASTHMA semaglutide (From Ozempic) AdvReac Mild CONSTIPATIO Verified 07/01/25 21:45 N Sulfa (Sulfonamide AdvReac Mild VOMITING Verified 07/01/25 21:45 Antibiotics) (SULFA (SULFONAMIDE ANTIBIOTICS)) Exam Vital Signs (past 8 hours): - 07/02/25 07:50 07/02/25 11:50 Temperature 97.4 F L 97.8 F Pulse Rate 93 H 96 H Respiratory Rate 18 18 Blood Pressure 110/66 119/62 Pulse Oximetry 98 100 Oxygen Delivery Method Room Air Oxygen Flow Rate 0 Objective Labs 07/02/25 00:55 07/02/25 00:55 Labs: Laboratory Results - last 24 hr 07/02/25 07/02/25 07/02/25 00:55 02:15 02:37 WBC 16.1 H RBC 4.16 L Hgb 11.7 L Hct 35.3 L MCV 84.9 MCH 28.1 MCHC 33.2 RDW 18.3 H Plt Count 260 Neut % (Auto) 76.4 H Lymph % (Auto) 11.6 L [place] % (Auto) 10.6 Eos % (Auto) 0.4 L Baso % (Auto) 1.0 Neut # (Auto) 01132 H Lymph # (Auto) 1900 [place] # (Auto) 1700 H Eos # (Auto) 100 Baso # (Auto) 200 H Sodium 132 L Potassium 4.1 Chloride 93 L Carbon Dioxide 31 BUN 53 H Creatinine 1.09 Estimated GFR > 60 BUN/Creatinine Ratio 48.6 H Glucose 158 H Lactate 0.9 Calcium 9.4 Magnesium 1.0 L Total Bilirubin 0.2 AST 20 ALT 17 Alkaline Phosphatase 113 Total Creatine Kinase < 20 L Troponin I < 0.012 NT-Pro-B Natriuret Pep 111 Total Protein 7.8 Albumin 4.5 Globulin 3.3 Albumin/Globulin Ratio 1.4 Lipase 30 SARS-CoV-2 (PCR) Negative Influenza A (RT-PCR) Flu a negative Influenza B (RT-PCR) Flu b negative RSV (PCR) Negative Assessment & Plan Time-Based Coding :: [TOTAL MINUTES] spent with patient and on the chart (including review of chart, obtaining history, exam, reviewing outside data, placing orders, documenting exam and treatment plan, and counseling patient) on [DATE].
[2025-07-02] MEDS: ONDANSETRON 4 MG/2 ML INJ IV (15:20)
[2025-07-02] MEDS: FUROSEMIDE 40 MG TABLET PO (15:42)
[2025-07-02] MEDS: SPIRONOLACTONE 25 MG TABLET PO ×2 (15:43→21:30)
[2025-07-02] MEDS: FAMOTIDINE 20 MG TABLET PO ×2 (15:43→21:30)
[2025-07-02] MEDS: FINASTERIDE 5 MG TABLET PO (15:43)
[2025-07-02] MEDS: NICOTINE 14 PATCH 14 MG TOP (15:43)
[2025-07-02] MEDS: SUBOXONE 0.5 EACH SL ×2 (15:44→21:30)
--- NOTE | 2025-07-02 16:33 | PC.WOUNDPHOT ---
Wound Photo Picture taken by Nona Villa RN.
[2025-07-02] MEDS: BECLOMETHASONE 2 EACH INH (21:29)
[2025-07-02] MEDS: FORMOTEROL INH (21:46)
[2025-07-02] MEDS: MOMETASONE INH (21:46)
[2025-07-02] MEDS: ALBUTEROL 2.5 MG/3 ML NEB (ADULT) INH (22:38)
[2025-07-03] MEDS: SODIUM CHLORIDE 0.9% 1,000 ML 100 ML IV (01:02)
[2025-07-03] MEDS: levoFLOXacin 500 MG/100 ML PIGGYBACK 100 MG IV (02:12)
[2025-07-03 02:48] VITALS: BP 108/65; PULSE 98; RESP 16; O2SAT 91
[2025-07-03 05:57] LABS: Add Manual Diff / Slide Review NO; Hematocrit 32.9 % (41-53); Hemoglobin 11.0 g/dL (13.5-17.5); Lymphocytes Absolute Auto 1100 /uL (1100-4500); Mean Corpuscular HGB Conc 33.3 % (30-36); Mean Corpuscular Hemoglobin 28.5 PG (26-34); Mean Corpuscular Volume 85.5 fL (80-100); Platelet Count 229 X10^3/uL (150-400)
[2025-07-03 06:11] LABS: Blood Urea Nitrogen 30 mg/dL (9-20); Calcium 8.6 mg/dL (8.4-10.2); Carbon Dioxide 27 mmol/L (22-32); Chloride 96 mmol/L (98-107); Estimated Glomerular Filt Rate > 60 mL/min (>60); Glucose 179 mg/dL (70-99); HEMOLYSIS < 15 (0-50); Potassium 4.0 mmol/L (3.4-5.1); Sodium 131 mmol/L (137-145)
[2025-07-03] MEDS: APIXABAN 5 MG TABLET PO (10:34)
[2025-07-03] MEDS: FINASTERIDE 5 MG TABLET PO (10:35)
[2025-07-03] MEDS: FERROUS SULFATE 325 MG TABLET PO (10:36)
[2025-07-03] MEDS: SPIRONOLACTONE 25 MG TABLET PO (10:37)
--- NOTE | 2025-07-03 10:37 | PM.DS.1 ---
History of Present Illness History of Present Illness Date Patient Seen: 07/03/25 Chief complaint: Agglutinin dz, dizzy, fatigue Narrative: Chief complaint: Malaise leukocytosis and chronic leg wound in the setting of cold agglutinin (IgM) History of present illness: 07/02: 55 year old male with past medical history of asthma, anxiety/depression, and recent diagnosis of left lower extremity DVT on Eliquis as well as cold agglutinin disease presents with complaint of fatigue and lightheadedness. Per the patient's report, the patient was seen at [facility] 3-1/2 weeks ago and was diagnosed with cold glutenin disease in the setting of anemia requiring blood transfusion. The patient at that time was also treated for pneumonia. The patient also recently had a living the patient states that he has increasing fatigue and generalized weakness but denies any fever, chills, body aches, diarrhea, chest pain or shortness of breath. In the emergency room, the patient remains hemodynamically stable and afebrile. Labs were relatively benign except for WBC of 16,000. Hemoglobin 11.7. Sodium 132 magnesium 1.0. Viral respiratory negative. UA and chest x-ray were reported negative without any sign of infection. As patient has multiple allergies to antibiotic including penicillin which might have caused him to have cold agglutinin disease per his report. 2 g of mag sulfate was also ordered. Blood cultures were drawn after IV antibiotic. Hospital course: Later in the afternoon patient is feeling much better after 1st dose of Levaquin. Review of systems: Less fatigued No rigors or chills overnight No chest pain palpitations shortness for breath No nausea vomiting diarrhea Physical exam: Alert cogent oriented no acute distress HEENT unremarkable No labored respiration Chronic erythema and ulceration left ankle with chronic brawny edema Slightly erythematous areas skin in the para perineal area Assessment and plan: ?Medication ?Instructions ?Recorded ?Confirmed ?Type epinephrine 0.3 mg/0.3 mL 0.3 mg (0.3 mL) IM SEE 07/17/19 06/14/25 Rx injection, auto-injector (EpiPen INSTRUCTIONS #2 ea 2-Nura) spironolactone 25 mg tablet 25 mg PO BID 12/28/23 06/14/25 History furosemide 40 mg tablet See Rx Instructions .Route 06/10/24 06/14/25 History .COMPLEX PRN Swelling nicotine 14 mg/24 hr daily 1 patch transdermal DAILY #14 ea 06/12/24 06/14/25 Rx transdermal patch (Nicoderm CQ) albuterol sulfate 90 mcg/actuation See Rx Instructions .Route 01/31/25 06/14/25 Rx aerosol inhaler .COMPLEX #8.5 grams ferrous gluconate 324 mg (37.5 mg 324 mg PO DAILY #90 tabs 01/31/25 06/14/25 Rx iron) tablet finasteride 5 mg tablet 5 mg PO DAILY #90 tabs 01/31/25 06/14/25 Rx losartan 100 mg tablet 100 mg PO DAILY #90 tabs 01/31/25 06/14/25 Rx Held on 06/14/25. Instructions: Home Medication placed on hold at Doctor's office prednisone 10 mg tablet 10 mg PO BEDTIME #90 tabs 01/31/25 06/14/25 Rx cyclobenzaprine 10 mg tablet 10 mg PO TID PRN muscle spasm #180 02/01/25 06/14/25 Rx tabs gabapentin 600 mg tablet 1,200 mg (2 x 600 mg) PO TID #240 02/27/25 06/14/25 Rx tabs lidocaine 5 % topical patch 1 patch topical DAILY #30 ea 02/27/25 06/14/25 Rx (Lidoderm) metformin 500 mg tablet See Rx Instructions .Route 03/07/25 06/14/25 Rx .COMPLEX #360 tabs tirzepatide 10 mg/0.5 mL 10 mg (0.5 mL) SUBCUT QWEEK #2 mL 04/26/25 06/14/25 Rx subcutaneous pen injector (Mounjaro) amlodipine 10 mg tablet 10 mg PO DAILY #90 tabs 05/07/25 06/14/25 Rx mometasone-formoterol HFA 200 See Rx Instructions .Route 05/07/25 06/14/25 Rx mcg-5 mcg/actuation aerosol .COMPLEX #13 grams inhaler (Dulera) nicotine (polacrilex) 2 mg buccal 2 mg buccal Q2-4H PRN nicotine 05/16/25 06/14/25 Rx mini lozenge cravings #81 ea nicotine 14 mg/24 hr daily 1 patch transdermal DAILY #28 ea 05/16/25 06/14/25 Rx transdermal patch trazodone 150 mg tablet 150 mg PO BEDTIME PRN insomnia #30 05/16/25 06/27/25 Rx tabs beclomethasone dipropionate 80 See Rx Instructions .Route .COMPLEX 05/18/25 06/14/25 History mcg/actuation HFA breath activated aerosol (Qvar RediHaler) buprenorphine 2 mg-naloxone 0.5 mg See Rx Instructions buccal 05/18/25 06/14/25 Rx sublingual film (Suboxone) .COMPLEX #30 ea tiotropium bromide 18 mcg capsule See Rx Instructions .Route .COMPLEX 05/18/25 06/14/25 History with inhalation device (Spiriva with HandiHaler) buprenorphine 2 mg-naloxone 0.5 mg See Rx Instructions buccal 06/14/25 06/14/25 Rx sublingual film (Suboxone) .COMPLEX #30 ea dapagliflozin propanediol 10 mg 10 mg PO DAILY 06/14/25 06/14/25 History tablet dupilumab 300 mg/2 mL subcutaneous 300 mg SUBCUT Q2W 06/14/25 06/14/25 History pen injector famotidine 20 mg tablet 20 mg PO BID 06/14/25 06/14/25 History levofloxacin 250 mg tablet 250 mg PO DAILY 06/14/25 06/14/25 History varenicline tartrate 0.5 mg (11)-1 See Rx Instructions PO PER PKG DIR 06/14/25 06/14/25 History mg (42) tablets in a dose pack apixaban 5 mg tablet (Eliquis) 5 mg PO BID #180 tabs 06/19/25 Rx levofloxacin 500 mg tablet 500 mg PO DAILY #7 tabs 06/19/25 Rx oxycodone-acetaminophen 10 mg-325 See Rx Instructions PO .COMPLEX 06/26/25 Rx mg tablet (Percocet) PRN pain #120 tabs diazepam 2 mg tablet 4 mg (2 x 2 mg) PO BEDTIME PRN 06/27/25 06/27/25 Rx sleep #60 tabs venlafaxine 75 mg tablet,extended See Rx Instructions .Route 06/27/25 06/27/25 Rx release 24 hr .COMPLEX #90 tabs Allergies Allergy/AdvReac Type Severity Reaction Status Date / Time clindamycin Allergy Intermediate Verified 07/01/25 21:45 cephalexin (CEPHALEXIN) Allergy Mild FACIAL Verified 07/01/25 21:45 SWELLING terbinafine (TERBINAFINE) Allergy Unknown Unknown Verified 07/01/25 21:45 nut - unspecified Allergy Anaphylaxis Verified 07/01/25 21:45 benralizumab (From Fasenra) AdvReac Severe SOB Verified 07/01/25 21:45 Penicillins (PENICILLINS) AdvReac Severe Facial/mouth Verified 07/01/25 21:45 numbness, mouth/lip swelling Cephalosporins AdvReac Intermediate Vomiting Verified 07/01/25 21:45 (CEPHALOSPORINS) Beta-Blockers AdvReac Mild ASTHMA Verified 07/01/25 21:45 (Beta-Adrenergic Bloc doxycycline (DOXYCYCLINE) AdvReac Mild HIVES Verified 07/01/25 21:45 nadolol (NADOLOL) AdvReac Mild AGGREVATES Verified 07/01/25 21:45 ASTHMA semaglutide (From Ozempic) AdvReac Mild CONSTIPATIO Verified 07/01/25 21:45 N Sulfa (Sulfonamide AdvReac Mild VOMITING Verified 07/01/25 21:45 Antibiotics) (SULFA (SULFONAMIDE ANTIBIOTICS)) Labs: Laboratory Results - last 24 hr 07/02/25 07/02/25 07/02/25 00:55 02:15 02:37 WBC 16.1 H RBC 4.16 L Hgb 11.7 L Hct 35.3 L MCV 84.9 MCH 28.1 MCHC 33.2 RDW 18.3 H Plt Count 260 Neut % (Auto) 76.4 H Lymph % (Auto) 11.6 L [place] % (Auto) 10.6 Eos % (Auto) 0.4 L Baso % (Auto) 1.0 Neut # (Auto) 99969 H Lymph # (Auto) 1900 [place] # (Auto) 1700 H Eos # (Auto) 100 Baso # (Auto) 200 H Sodium 132 L Potassium 4.1 Chloride 93 L Carbon Dioxide 31 BUN 53 H Creatinine 1.09 Estimated GFR > 60 BUN/Creatinine Ratio 48.6 H Glucose 158 H Lactate 0.9 Calcium 9.4 Magnesium 1.0 L Total Bilirubin 0.2 AST 20 ALT 17 Alkaline Phosphatase 113 Total Creatine Kinase < 20 L Troponin I < 0.012 NT-Pro-B Natriuret Pep 111 Total Protein 7.8 Albumin 4.5 Globulin 3.3 Albumin/Globulin Ratio 1.4 Lipase 30 SARS-CoV-2 (PCR) Negative Influenza A (RT-PCR) Flu a negative Influenza B (RT-PCR) Flu b negative RSV (PCR) Negative Assessment & Plan Generalized weakness with hypomagnesemia. Admit the patient to medical telemetry under observation. Replace magnesium and monitor level. Leukocytosis. WBC 16,000. No clear sign of infection as UA and chest x-ray shows no UTI or pneumonia respectively. Patient was given empiric IV. Continue another 24 hour Cultures from blood that was drawn and de-escalate antibiotic accordingly. Dehydration. IVF. Cold agglutinin: Follow up with Hematology Recent left lower extremity DVT. Resume home Eliquis. Depression anxiety. Resume home medication. 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 CODE STATUS Full code. Disposition Discharge to home on oral Levaquin Time based billin minutes were involved this patient [id number] evaluation discussion with the patient's review objective laboratory and imaging data discussion with care management team Discharge Providers Provider Date of admission: 07/02/25 03:03 Discharge Date: 07/03/25 Primary care physician: Ricardo Victoria MD Discharge provider: Nicolás Rodriguez MD Exam Vital Signs (past 8 hours): - 07/03/25 02:48 Pulse Rate 98 H Respiratory Rate 16 Blood Pressure 108/65 Pulse Oximetry 91 Fraction of Inspired Oxygen 21 SaO2/FiO2 Ratio 438 Oxygen Delivery Method Room Air Oxygen Flow Rate 0 Objective Labs 07/03/25 05:24 07/03/25 05:24 Labs: Laboratory Results - last 24 hr 07/03/25 05:24 WBC 10.9 RBC 3.85 L Hgb 11.0 L Hct 32.9 L MCV 85.5 MCH 28.5 MCHC 33.3 RDW 18.1 H Plt Count 229 Neut % (Auto) 75.1 H Lymph % (Auto) 9.6 L [place] % (Auto) 14.1 H Eos % (Auto) 0.9 L Baso % (Auto) 0.3 Neut # (Auto) 8200 H Lymph # (Auto) 1100 [place] # (Auto) 1500 H Eos # (Auto) 100 Baso # (Auto) 0 Sodium 131 L Potassium 4.0 Chloride 96 L Carbon Dioxide 27 BUN 30 H Creatinine 0.90 Estimated GFR > 60 BUN/Creatinine Ratio 33.3 H Glucose 179 H Calcium 8.6 PFSH Medical History Cervical stenosis of spinal canal Chronic pain syndrome EMA (generalized anxiety disorder) 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 Hyperlipidemia Hypertension Iron deficiency anemia Myocarditis OCD (obsessive compulsive disorder) Tobacco use disorder Varicose vein of leg Surgical History No pertinent past surgical history Social History marital status: unmarried,single household members: significant other lives independently: Yes occupational status: disabled alcohol intake: never substance use type: does not use Discharge Plan Discharge Plan Patient Disposition: Home Discharge orders & Medications Prescriptions: New levofloxacin 750 mg tablet 750 mg PO DAILY Qty: 7 0RF Continued trazodone 150 mg tablet 150 mg PO BEDTIME PRN (Reason: insomnia) Qty: 30 2RF nicotine 14 mg/24 hr patch 24 hour 1 patch transdermal DAILY Qty: 28 2RF Rx Instructions: remove one hour before bedtime diazepam 2 mg tablet 4 mg PO BEDTIME PRN (Reason: sleep) Qty: 60 1RF venlafaxine 75 mg tablet extended release 24hr See Rx Instructions .ROUTE .COMPLEX Qty: 90 2RF Rx Instructions: Take one tablet by mouth every morning for one week, then increase to two tablets by mouth every morning for one week, then increase to three tablets by mouth every morning thereafter albuterol sulfate 90 mcg/actuation HFA aerosol inhaler See Rx Instructions .ROUTE .COMPLEX Qty: 8.5 5RF Dose Instruction: inhale 2 puffs by mouth every 6 hours if needed for shortness of breath or wheezing Rx Instructions: inhale 2 puffs by mouth every 6 hours if needed for shortness of breath or wheezing ferrous gluconate 324 mg (37.5 mg iron) tablet 324 mg PO DAILY Qty: 90 3RF finasteride 5 mg tablet 5 mg PO DAILY Qty: 90 1RF Rx Instructions: take 1 tablet by mouth once daily losartan 100 mg tablet 100 mg PO DAILY Qty: 90 3RF amlodipine 10 mg tablet 10 mg PO DAILY Qty: 90 1RF Rx Instructions: take 1 tablet by mouth once daily Dulera 200-5 mcg/actuation HFA aerosol inhaler See Rx Instructions .ROUTE .COMPLEX Qty: 13 6RF Dose Instruction: inhale 2 puffs by mouth and INTO THE LUNGS twice a day Rx Instructions: inhale 2 puffs by mouth and INTO THE LUNGS twice a day buprenorphine-naloxone [Suboxone] 2-0.5 mg film See Rx Instructions buccal .COMPLEX Qty: 30 0RF Rx Instructions: place 1/2 strip/tab under side of tongue three times daily until you see provider. Patient under close supervision of PCP, specialist, and hospice case manager oxycodone-acetaminophen [Percocet] 10-325 mg tablet See Rx Instructions PO .COMPLEX PRN (Reason: pain) Qty: 120 0RF Rx Instructions: take 2 tablets by mouth every 6 hours if needed for pain Mounjaro 10 mg/0.5 mL pen injector 10 mg SUBCUT QWEEK Qty: 2 0RF Rx Instructions: take for 4 weeks then switch to 12.5mg dosage epinephrine [EpiPen 2-Nura] 0.3 mg/0.3 mL auto-injector 0.3 mg IM SEE INSTRUCTIONS Qty: 2 5RF spironolactone 25 mg tablet 25 mg PO BID cyclobenzaprine 10 mg tablet 10 mg PO TID PRN (Reason: muscle spasm) Qty: 180 3RF Rx Instructions: take 1 tablet by mouth three times a day if needed for SPASM(S) gabapentin 600 mg tablet 1,200 mg PO TID Qty: 240 3RF lidocaine [Lidoderm] 5 % adhesive patch,medicated 1 patch topical DAILY Qty: 30 2RF Rx Instructions: leave on most painful area for up to 12 hrs famotidine 20 mg tablet 20 mg PO BID dapagliflozin propanediol 10 mg tablet 10 mg PO DAILY buprenorphine-naloxone [Suboxone] 2-0.5 mg film See Rx Instructions buccal .COMPLEX Qty: 30 0RF Rx Instructions: place 1/2 strip/tab under side of tongue three times daily until you see provider. Patient under close supervision of PCP, specialist, and hospice case manager Eliquis 5 mg tablet 5 mg PO BID Qty: 180 0RF furosemide 40 mg tablet See Rx Instructions .ROUTE .COMPLEX PRN (Reason: Swelling) Rx Instructions: 1-2 tabs as needed for swelling tiotropium bromide [Spiriva with HandiHaler] 18 mcg capsule, w/inhalation device See Rx Instructions .ROUTE .COMPLEX Rx Instructions: inhale THE contents of 1 capsule in THE HANDIHALER once daily x2 puffs am and x2 puffs hs Qvar RediHaler 80 mcg/actuation HFA aerosol breath activated See Rx Instructions .ROUTE .COMPLEX Rx Instructions: inhale 2 puff by mouth every 12 hours metformin 500 mg tablet See Rx Instructions .ROUTE .COMPLEX Patient Comments: three tablets in the a.m. Rx Instructions: take 2 tablets by mouth 1700 prednisone 10 mg tablet 10 mg PO DAILY Follow up/Referrals: Ricardo Victoria MD [Primary Care Provider, Family Practice] Visit Report/Discharge Packet Stand Alone Forms: Patient Portal/API, Stroke Signs & Symptoms Discharge Data Primary Care Provider: Ricardo Victoria Attending Provider: Francisco Smith Admit Date/Time: 07/02/25 03:03
[2025-07-03] MEDS: GABAPENTIN 600 MG TABLET 1200 MG PO (10:38)
[2025-07-03] MEDS: BECLOMETHASONE 2 EACH INH (10:39)
[2025-07-03] MEDS: TIOTROPIUM 1 EACH INH (10:39)
[2025-07-03] MEDS: MOMETASONE INH (10:40)
[2025-07-03] MEDS: FORMOTEROL INH (10:40)
[2025-07-03] MEDS: SUBOXONE 0.5 EACH SL (10:56)
--- NOTE | 2025-07-03 11:12 | CM.DPNOTE ---
DCP Continued: Reviewed EMR and team rounds for pt?s medical status. Per hospitalist, pt cleared for discharge home; orders placed. No discharge needs anticipated. Plan: Anticipating discharge home with Partner, Don, to transport. CM Team will continue to follow for coordination of discharge plans. SANGEETA Victor
--- NOTE | 2025-07-03 11:55 | PC.NURSE ---
Discharge instructions given and understood by pt. PIV and telemetry device removed. Pt's own medications returned. Pt discharged with pt's friend via private vehicle, escorted to the entrance via wheelchair.
== END 2025-07-03 11:40 | disposition home or self-care (01) ==
LOC: ED 22:11 → AC 07-02 03:04
PROVIDERS: Admitting Provider Internal Medicine; Emergency Provider Family Medicine; Family Provider Family Medicine; PCP Family Medicine; Referring Provider Family Medicine; Visit Provider Internal Medicine
DX: R53.83 Other fatigue (principal); R42 Dizziness and giddiness; D59.12 Cold autoimmune hemolytic anemia; E86.0 Dehydration; E83.42 Hypomagnesemia; L97.329 Non-pressure chronic ulcer of left ankle with unspecified severity; I83.92 Asymptomatic varicose veins of left lower extremity; J45.909 Unspecified asthma, uncomplicated; F32.A Depression, unspecified; F41.9 Anxiety disorder, unspecified; G89.4 Chronic pain syndrome; M48.02 Spinal stenosis, cervical region; I10 Essential (primary) hypertension; E78.5 Hyperlipidemia, unspecified; Z86.718 Personal history of other venous thrombosis and embolism; Z79.01 Long term (current) use of anticoagulants; F17.210 Nicotine dependence, cigarettes, uncomplicated; T36.0X5A Adverse effect of penicillins, initial encounter
CPT/HCPCS: 36415; 71046; 80048; 80053; 81003; 82550; 83605; 83690; 83735; 83880; 84484; 85025; 87040; 87637; 94640; 96361; 96365; 96366; 96367; 96375; 99284; G0378; A9270; J1956; J2405; J3475; J7030; J7120; J7613

== ENCOUNTER → 2025-07-05 09:54 | Outpatient (CLI) | payer OTHER, SELFPAY ==
[2025-05-23 17:12] VITALS: PULSE 106; RESP 24; O2SAT 94
[2025-07-02 04:28] VITALS: BMI 37.7
[2025-07-05 11:03] LABS: Add Manual Diff / Slide Review NO; Hematocrit 33.7 % (41-53); Hemoglobin 11.1 g/dL (13.5-17.5); Lymphocytes Absolute Auto 900 /uL (1100-4500); Mean Corpuscular HGB Conc 33.0 % (30-36); Mean Corpuscular Hemoglobin 28.0 PG (26-34); Mean Corpuscular Volume 85.0 fL (80-100); Platelet Count 243 X10^3/uL (150-400)
[2025-07-05 11:06] LABS: Reticulocyte Count, Percent 1.3 % (0.9-2.6)
[2025-07-05 11:21] LABS: Alanine Aminotransferase 13 IU/L (<50); Albumin 4.0 g/dL (3.5-5.0); Albumin Globulin Ratio 1.5 (1.0-2.8); Alkaline Phosphatase 102 U/L (38-126); Blood Urea Nitrogen 34 mg/dL (9-20); Calcium 9.4 mg/dL (8.4-10.2); Carbon Dioxide 25 mmol/L (22-32); Chloride 96 mmol/L (98-107); Estimated Glomerular Filt Rate > 60 mL/min (>60); Globulin 2.7 g/dL (1.7-4.1); Glucose 247 mg/dL (70-99); HEMOLYSIS < 15 (0-50); Potassium 4.8 mmol/L (3.4-5.1); Sodium 132 mmol/L (137-145); Total Protein 6.7 g/dL (6.3-8.2)
[2025-07-06 18:11] LABS: Free Kappa Lt Chains, Serum 32.1 mg/L (3.3-19.4); Free Lambda Lt Chains,Serum 24.1 mg/L (5.7-26.3)
== END ==
PROVIDERS: Family Provider Family Medicine; PCP Family Medicine; Referring Provider Student in an Organized Health Care Education/Training Program; Visit Provider Student in an Organized Health Care Education/Training Program
DX: D47.2 Monoclonal gammopathy (principal); D59.12 Cold autoimmune hemolytic anemia
CPT/HCPCS: 36415; 80053; 83615; 83883; 85025; 85045

== ENCOUNTER → 2025-07-05 11:12 | Outpatient (CLI) | payer OTHER, SELFPAY ==
[2025-05-23 17:12] VITALS: PULSE 106; RESP 24; O2SAT 94
[2025-07-02 04:28] VITALS: BMI 37.7
== END ==
PROVIDERS: Family Provider Family Medicine; PCP Family Medicine; Referring Provider Family Medicine; Visit Provider Surgery
DX: R60.0 Localized edema (principal); R23.3 Spontaneous ecchymoses; E11.628 Type 2 diabetes mellitus with other skin complications; I87.2 Venous insufficiency (chronic) (peripheral)
CPT/HCPCS: 99213

== ENCOUNTER → 2025-07-12 11:21 | Outpatient (CLI) | payer OTHER, SELFPAY ==
[2025-05-23 17:12] VITALS: PULSE 106; RESP 24; O2SAT 94
[2025-07-02 04:28] VITALS: BMI 37.7
== END ==
LOC: WC 11:23
PROVIDERS: Family Provider Family Medicine; PCP Family Medicine; Referring Provider Family Medicine; Visit Provider Surgery
DX: Z09 Encounter for follow-up examination after completed treatment for conditions other than malignant neoplasm (principal); Z87.828 Personal history of other (healed) physical injury and trauma
CPT/HCPCS: 99213

== ENCOUNTER 2025-07-14 08:46 | Emergency (ER) | payer OTHER, SELFPAY ==
[2025-05-23 17:12] VITALS: PULSE 106; RESP 24; O2SAT 94
[2025-07-02 04:28] VITALS: BMI 37.7
[2025-07-14] VITALS (19 sets, daily range): BP systolic 96–134; BP diastolic 55–67; PULSE 99–141; RESP 11–30; TEMP 37–37.3; O2SAT 91–98; BMI 35.7
--- NOTE | 2025-07-14 08:57 | ED_ITS ---
HPI - Abdominal Pain General Chief Complaint: Shortness of Breath/Dyspnea Stated Complaint: Blood clot LT Leg/vomiting/SOB Time Seen by Provider: 07/14/25 08:57 History of Present Illness HPI narrative: Patient is a 55-year-old male history of cold agglutinin, current DVT on Eliquis, asthma, anxiety depression with multiple admissions recently presenting today with variety of symptoms. He states that last night and yesterday he had a low-grade temp of 100?. He has been feeling nauseous and has thrown up a couple of times. When this happens he does get some radiating chest pain. He has noticed some shortness of breath with exertion as well. He has had a couple episodes of diarrhea all nonbloody. He has some left upper quadrant pain in his abdomen. 05/18-05/23 or left lower leg and cellulitis. Hospital stay complicated with hypoxia, required BiPAP ultimately transferred to [facility] 05/23-06/05 at [facility] required high-flow nasal cannula I do not see that he was intubated. He does have a history of asthma. Ultimately discharged 06/07/25 ED visit thought to have a new infection with fever of 101-102 at home,, possible sepsis and GI bleed ultimately transferred to [facility] 06/08-06/12 admitted at , with cold agglutinin hemolytic anemia left lower leg cellulitis and anemia met sepsis criteria with mild hypotension and tachycardia. Discharged with anemia improving left lower leg cellulitis, steroid dependent asthma, and hypertension 07/02-07/03 admitted for leukocytosis and weakness. Related Data Home Medications ?Medication ?Instructions ?Recorded ?Confirmed spironolactone 25 mg tablet 25 mg PO BID 12/28/2306/14 furosemide 40 mg tablet See Rx Instructions .Route 0 06/10/24 07/04/25 .COMPLEX PRN Swelling beclomethasone dipropionate 80 See Rx Instructions .Ro radha .COMPLEX 05/18/25 07/04/25 mcg/actuation HFA breath activated aerosol (Qvar RediHaler) tiotropium bromide 18 mcg capsule See Rx Instructions .Route .COMPLEX 05/18/25 07/04/25 with inhalation device (Spiriva with HandiHaler) dapagliflozin propanediol 10 mg 10 mg PO DAILY 5 07/04/25 tablet famotidine 20 mg tablet 20 mg PO BID 06/14/25 metformin 500 mg tablet See Rx Instructions .Route . COMPLEX 07/02/25 07/04/25 prednisone 10 mg tablet 10 mg PO DAILY 07/02/2506/14 Previous Rx's ?Medication ?Instructions ?Recorded epinephrine 0.3 mg/0.3 mL 0.3 mg (0.3 mL) IM SEE 07/17 injection, auto-injector (EpiPen INSTRUCTIONS #2 ea 2-Nura) albuterol sulfate 90 mcg/actuation See Rx Instructions .Route 01/31/25 aerosol inhaler .COMPLEX #8.5 grams ferrous gluconate 324 mg (37.5 mg 324 mg PO DAILY #90 tabs 01/31/25 iron) tablet finasteride 5 mg tablet 5 mg PO DAILY #90 tabs 01/31 losartan 100 mg tablet 100 mg PO DAILY #90 tabs cyclobenzaprine 10 mg tablet 10 mg PO TID PRN muscle s pasm #180 02/01/25 tabs gabapentin 600 mg tablet 1,200 mg (2 x 600 mg) PO TID #240 02/27/25 tabs lidocaine 5 % topical patch 1 patch topical DAILY #30 ea 02/27/25 (Lidoderm) amlodipine 10 mg tablet 10 mg PO DAILY #90 tabs 04/14 02/04 mometasone-formoterol HFA 200 See Rx Instructions .Rou te 05/07/25 mcg-5 mcg/actuation aerosol .COMPLEX #13 grams inhaler (Dulera) nicotine 14 mg/24 hr daily 1 patch transdermal DAILY # 28 ea 05/16/25 transdermal patch trazodone 150 mg tablet 150 mg PO BEDTIME PRN insomn ia #30 05/16/25 tabs apixaban 5 mg tablet (Eliquis) 5 mg PO BID #180 tabs 1 diazepam 2 mg tablet 4 mg (2 x 2 mg) PO BEDTIME P RN 06/27/25 sleep #60 tabs venlafaxine 75 mg tablet,extended See Rx Instructions .Route 06/27/25 release 24 hr .COMPLEX #90 tabs tirzepatide 10 mg/0.5 mL 10 mg (0.5 mL) SUBCUT QWEEK #2 mL 07/02/25 subcutaneous pen injector (Mounjaro) levofloxacin 750 mg tablet 750 mg PO DAILY #7 tabs buprenorphine 2 mg-naloxone 0.5 mg See Rx Instructions buccal 07/05/25 sublingual film (Suboxone) .COMPLEX #30 ea oxycodone-acetaminophen 10 mg-325 See Rx Instructions PO .COMPLEX 07/10/25 mg tablet (Percocet) PRN pain #120 tabs Allergies Allergy/AdvReac Type Severity Reaction Status Date / Time clindamycin Allergy Intermediate Verified 07/14/25 08:55 cephalexin (CEPHALEXIN) Allergy Mild FACIAL Verified 07/14/25 08:55 SWELLING terbinafine (TERBINAFINE) Allergy Unknown Unknown Verified 07/14/25 08:55 nut - unspecified Allergy Anaphylaxis Verified 07/14/25 08:55 benralizumab (From Fasenra) AdvReac Severe SOB Verified 07/14/25 08:55 Penicillins (PENICILLINS) AdvReac Severe Facial/mouth Verified 07/14/25 08:55 numbness, mouth/lip swelling Cephalosporins AdvReac Intermediate Vomiting Verified 07/14/25 08:55 (CEPHALOSPORINS) Beta-Blockers AdvReac Mild ASTHMA Verified 07/14/25 08:55 (Beta-Adrenergic Bloc doxycycline (DOXYCYCLINE) AdvReac Mild HIVES Verified 07/14/25 08:55 nadolol (NADOLOL) AdvReac Mild AGGREVATES Verified 07/14/25 08:55 ASTHMA semaglutide (From Ozempic) AdvReac Mild CONSTIPATIO Verified 07/14/25 08:55 N Sulfa (Sulfonamide AdvReac Mild VOMITING Verified 07/14/25 08:55 Antibiotics) (SULFA (SULFONAMIDE ANTIBIOTICS)) Patient History Medical History Tobacco use disorder EMA (generalized anxiety disorder) OCD (obsessive compulsive disorder) 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 Iron deficiency anemia Chronic pain syndrome Cervical stenosis of spinal canal Hypertension Hyperlipidemia Varicose vein of leg Myocarditis Surgical History No pertinent past surgical history Social History marital status: unmarried,single household members: significant other lives independently: Yes occupational status: disabled alcohol intake: never substance use type: does not use tobacco type: cigarettes alcohol intake frequency: other Exam Initial Vital Signs Initial Vital Signs: Vital Signs Pulse Rate 118 H 07/14/25 08:54 Respiratory Rate 29 H 07/14/25 08:54 Pulse Oximetry 95 07/14/25 08:54 GENERAL: Alert 55-year-old male appears older than stated age and in no acute distress. HEENT: Head atraumatic,EOMI, pupils reactive, face symmetric, moist mucous membranes CARDIOVASCULAR: Tachycardic regular RESPIRATORY: Breath sounds equal bilaterally, no wheezes rales or rhonchi. ABDOMEN: Soft, left upper quadrant pain no significant guarding or rebound negative Thomas's sign no epigastric pain EXTREMITIES: Normal range of motion, no clubbing or edema. Neurovascularly intact NEUROLOGICAL: Alert and oriented x4.Normal gait and speech. Cranial nerves II through XII grossly intact. SKIN: Left lower leg is swollen with improved infection s. Course Orders Ordered: ED Orders 07/14/25 08:58 CT abdomen pelvis w con Stat CT angio chest PE protocol Stat 07/14/25 08:59 EKG-12 Lead Stat 07/14/25 09:10 Complete Blood Count AUTO DIFF Stat Comprehensive Metabolic Panel Stat Covid-19 + FLU A/B + RSV - PCR Stat Lactate (Lactic Acid) Stat Lipase Stat NT-proBNP (BNP-Adult 18+) Stat Procalcitonin Stat Troponin & CK Cardiac Panel Stat 07/14/25 09:52 Blood Culture Stat 07/14/25 11:10 GI Panel (Film Array) Stat 07/14/25 13:00 Urinalysis and Microscopic Stat Hydromorphone HCl (Hydromorphone 1 Mg/Ml Syringe) 1 mg IV Q2HR PRN PRN Reason: Pain, Moderate (4-6) Last Admin: 07/14/25 11:24 Dose: 1 mg Documented By: SGF Sodium Chloride (Normal Saline 0.9%) 1,000 mls @ 125 mls/hr IV CONT BC Last Admin: 07/14/25 13:23 Dose: 125 mls/hr Documented By: SGF Sodium Chloride (Normal Saline 0.9%) 2,190 mls @ 730 mls/hr 30 ml/kg infuse over 3 hr (2190 ml) IV NOW ONE Stop: 07/14/25 16:45 Last Infusion: 07/14/25 14:55 Dose: Infused Documented By: Admin: 07/14/25 14:00 Dose: 730 mls/hr Documented By: ISRAEL Discontinued Medications Apixaban (Apixaban 5 Mg Tablet) 5 mg PO NOW ONE Stop: 07/14/25 14:46 Last Admin: 07/14/25 14:58 Dose: 5 mg Documented By: SGF Cyclobenzaprine HCl (Cyclobenzaprine 10 Mg Tablet) 10 mg PO NOW ONE Stop: 07/14/25 14:46 Last Admin: 07/14/25 14:59 Dose: 10 mg Documented By: SGF Cefepime HCl 2 gm/ Sodium (Chloride) 100 mls @ 200 mls/hr IV NOW ONE Stop: 07/14/25 09:50 Last Admin: 07/14/25 10:04 Dose: Not Given Documented By: ISRAEL Levofloxacin (Levaquin) 750 mg in 150 mls @ 100 mls/hr IV NOW ONE Stop: 07/14/25 11:22 Last Infusion: 07/14/25 11:59 Dose: Infused Documented By: Admin: 07/14/25 10:30 Dose: 100 mls/hr Documented By: ISRAEL Vancomycin HCl/Dextrose (Vancomycin) 2,000 mg in 400 mls @ 200 mls/hr IV NOW ONE Stop: 07/14/25 11:54 Last Infusion: 07/14/25 12:19 Dose: Infused Documented By: Admin: 07/14/25 10:05 Dose: 200 mls/hr Documented By: ISRAEL Sodium Chloride (Normal Saline 0.9%) 1,000 mls @ 1,000 mls/hr IV BOLUS ONE Stop: 07/14/25 10:54 Last Infusion: 07/14/25 11:23 Dose: Infused Documented By: Admin: 07/14/25 10:05 Dose: 1,000 mls/hr Documented By: ISRAEL Ondansetron HCl (Ondansetron 4 Mg/2 Ml Inj) 4 mg IV NOW ONE Stop: 07/14/25 08:59 Last Admin: 07/14/25 09:26 Dose: 4 mg Documented By: ISRAEL Oxycodone HCl (Oxycodone Ir 10 Mg Tablet) 10 mg PO Q4HR PRN PRN Reason: Pain, Severe (7-10) Oxycodone HCl (Oxycodone Ir 5 Mg Tablet) 10 mg PO Q4H PRN PRN Reason: Pain, Severe (7-10) Last Admin: 07/14/25 13:27 Dose: 10 mg Documented By: ISRAEL Oxycodone HCl (Oxycodone Ir 5 Mg Tablet) 20 mg PO NOW ONE Stop: 07/14/25 13:30 Last Admin: 07/14/25 13:36 Dose: 10 mg Documented By: ISRAEL Pantoprazole Sodium (Pantoprazole 40 Mg Vial) 40 mg IV NOW ONE Stop: 07/14/25 08:59 Last Admin: 07/14/25 09:26 Dose: 40 mg Documented By: ISRAEL Vital Signs Vital signs: Vital Signs - 8 hr 07/14/25 08:54 07/14/25 08:55 07/14/25 09:00 Temperature 98.9 F Pulse Rate 118 H 118 H Respiratory Rate 29 H 22 Blood Pressure 118/67 114/65 Pulse Oximetry 95 94 Oxygen Delivery Method Room Air 07/14/25 09:00 07/14/25 09:30 07/14/25 09:33 Temperature Pulse Rate 109 H 106 H 104 H Respiratory Rate 11 L 18 16 Blood Pressure Pulse Oximetry 94 95 93 Oxygen Delivery Method 07/14/25 09:34 07/14/25 09:34 07/14/25 10:00 Temperature Pulse Rate 104 H 104 H Respiratory Rate 17 15 Blood Pressure 134/57 L Pulse Oximetry 95 91 Oxygen Delivery Method 07/14/25 10:00 07/14/25 10:30 07/14/25 10:30 Temperature Pulse Rate 99 H Respiratory Rate 15 Blood Pressure 109/55 L 111/62 Pulse Oximetry 93 Oxygen Delivery Method 07/14/25 11:00 07/14/25 11:00 07/14/25 11:30 Temperature Pulse Rate 99 H Respiratory Rate 16 Blood Pressure 111/58 L 119/66 Pulse Oximetry 95 Oxygen Delivery Method 07/14/25 11:30 07/14/25 12:00 07/14/25 12:00 Temperature 99.2 F Pulse Rate 105 H Respiratory Rate 14 Blood Pressure 112/56 L Pulse Oximetry 96 Oxygen Delivery Method 07/14/25 12:00 07/14/25 12:30 07/14/25 12:30 Temperature Pulse Rate 104 H 110 H Respiratory Rate 15 30 H Blood Pressure 96/59 L Pulse Oximetry 94 95 Oxygen Delivery Method 07/14/25 13:12 07/14/25 13:13 07/14/25 13:13 Temperature Pulse Rate 141 H 112 H Respiratory Rate 13 Blood Pressure 109/57 L Pulse Oximetry 93 Oxygen Delivery Method 07/14/25 13:29 07/14/25 13:30 07/14/25 13:30 Temperature Pulse Rate 108 H 104 H Respiratory Rate 17 12 Blood Pressure 99/58 L Pulse Oximetry 94 95 Oxygen Delivery Method 07/14/25 14:00 07/14/25 14:00 07/14/25 14:30 Temperature Pulse Rate 103 H Respiratory Rate 13 Blood Pressure 110/57 L 105/55 L Pulse Oximetry 98 Oxygen Delivery Method 07/14/25 14:30 07/14/25 15:00 07/14/25 15:00 Temperature 98.6 F Pulse Rate 101 H 106 H Respiratory Rate 15 19 Blood Pressure 116/63 Pulse Oximetry 94 97 Oxygen Delivery Method MDM - Abdominal Pain Lab Data 07/14/25 09:10 07/14/25 09:10 Labs: Lab Results 07/14/25 07/14/25 Range/Units 09:10 13:00 WBC 35.7 H* (4.5-11.0) X10^3/uL RBC 4.32 L (4.5-5.9) X10^6/uL Hgb 12.0 L (13.5-17.5) g/dL Hct 36.2 L (41-53) % MCV 83.7 (80-100) fL MCH 27.7 (26-34) PG MCHC 33.1 (30-36) % RDW 17.2 H (11.6-14.8) % Plt Count 238 (150-400) X10^3/uL Neut % (Auto) 89.6 H (50-75) % Lymph % (Auto) 3.1 L (25-40) % [place] % (Auto) 7.0 (3-14) % Eos % (Auto) 0.2 L (2-4) % Baso % (Auto) 0.1 (0-2) % Neut # (Auto) 89901 H (7760-3572) /uL Lymph # (Auto) 1100 (4619-7115) /uL [place] # (Auto) 2500 H (0-900) /uL Eos # (Auto) 100 (0-450) /uL Baso # (Auto) 0 (0-100) /uL Sodium 126 L (137-145) mmol/L Potassium 4.2 (3.4-5.1) mmol/L Chloride 94 L (98-107) mmol/L Carbon Dioxide 21 L (22-32) mmol/L BUN 47 H (9-20) mg/dL Creatinine 1.17 (0.66-1.25) mg/dL Estimated GFR > 60 (>60) mL/min BUN/Creatinine Ratio 40.2 H (6-22) Glucose 329 H (70-99) mg/dL Lactate 1.4 (0.7-2.1) mmol/L Calcium 7.3 L (8.4-10.2) mg/dL Total Bilirubin 0.4 (0.2-1.3) mg/dL AST 14 L (17-59) IU/L ALT 12 (<50) IU/L Alkaline Phosphatase 93 (38-126) U/L Total Creatine Kinase < 20 L (55-170) U/L Troponin I < 0.012 (0.01-0.034) ng/mL NT-Pro-B Natriuret Pep 275 H (<125) pg/mL Total Protein 6.0 L (6.3-8.2) g/dL Albumin 3.3 L (3.5-5.0) g/dL Globulin 2.7 (1.7-4.1) g/dL Albumin/Globulin Ratio 1.2 (1.0-2.8) Lipase 12 L (23-300) U/L Procalcitonin 0.699 H (<0.5) ng/mL Urine Color Yellow Urine Appearance Clear Urine pH 5.5 (4.5-8.0) Ur Specific [place] <=1.005 (1.000-1.035) Urine Protein Negative (Negative) Urine Glucose (UA) 3+ H (Negative) g/dL Urine Ketones Negative (NEGATIVE) Urine Occult Blood Negative (Negative) Urine Nitrate Negative (Negative) Urine Bilirubin Negative (NEGATIVE) Urine Urobilinogen 0.2 (0.2) E.U./dL Ur Leukocyte Esterase Negative (NEGATIVE) Urine RBC None seen (0-5/HPF) Urine WBC None seen (0-5/HPF) Ur Squamous Epith Cells 0-1 /hpf (0-5/HPF) Urine Bacteria None seen (None) Vol Urine Centrifuged 10ml (spun) SARS-CoV-2 (PCR) Negative (Negative) Influenza A (RT-PCR) Flu a negative (NEGATIVE) Influenza B (RT-PCR) Flu b negative (NEGATIVE) RSV (PCR) Negative (Negative) Imaging Data CT scan - chest: Radiologist's Impression: PROCEDURE: CT ANGIO CHEST PE PROTOCOL INDICATIONS: short of breath chest pain TECHNIQUE: After the administration of intravenous contrast, 2 mm thick sections acquired from the pulmonary apices to the posterior costophrenic angles. MIP reformats of the arterial vasculature were utilized. For radiation dose reduction, the following was used: automated exposure control, adjustment of mA and/or kV according to patient size. COMPARISON: [facility], CT, CT ANGIO CHEST PE PROTOCOL, 05/20/2025, 11:18. FINDINGS: Image quality: Diagnostic. Pulmonary arteries: Pulmonary arteries are normal in size, and demonstrate no intraluminal filling defects to suggest central pulmonary embolism. Lower Neck: No enlarged lymph nodes. Thyroid: No thyroid nodules which require sonographic follow up, per consensus guidelines. Axillae: No enlarged lymph nodes. Chest Wall: Bilateral gynecomastia Bones: Unremarkable. Lungs and Pleura: No pneumothorax or pleural effusions. No consolidation or suspicious nodules. Heart: Heart size is normal. No pericardial effusion. Thoracic Vessels: No aortic aneurysm. Mediastinum and Lulu: Improving mild mediastinal lymph nodes. Subcarinal calcified node reflects prior granulomatous disease Esophagus: No wall thickening. No hiatal hernia. Upper Abdomen: Visualized upper abdomen solid organs and bowel loops appear normal. IMPRESSION: No evidence of pulmonary emboli, aortic dissection or aneurysm. Left lower lobe platelike atelectasis or scarring does have a slightly nodular appearance. Consider six-month follow-up Approved by: Bebeto Guerrier M.D. on 07/14/2025 at 9:36 CT scan - abdomen/pelvis: Radiologist's Impression: PROCEDURE: CT ABDOMEN PELVIS W CON INDICATIONS: pain with vomiting TECHNIQUE: After the administration of intravenous contrast, axial sections acquired from the lung bases to the pubic symphysis. Coronal and sagittal reformats were performed. For radiation dose reduction, the following was used: automated exposure control, adjustment of mA and/or kV according to patient size. COMPARISON: [facility], CT, CT ABDOMEN PELVIS W CON, 09/03/2024, 16:14. FINDINGS: Image quality: Diagnostic. Lower Chest: No significant findings. ABDOMEN: Liver: The liver is diffusely decreased in attenuation without focal mass lesion. Liver is enlarged at 28 0.0 cm. No focal mass lesion. Gallbladder: No radiopaque gallstones or wall thickening. Biliary ducts: No biliary dilation. Pancreas: No ductal dilation. Spleen: Size is within normal limits. Adrenal Glands: No adrenal nodules. Kidneys and Ureters: No hydronephrosis. Bilateral renal scarring. Small right renal simple cyst Stomach and Bowel: Colonic wall thickening with pericolonic inflammatory changes noted particularly involving the right and transverse colon. Moderate fecal debris throughout the colon present. Unorganized free fluid in the pelvis. Peritoneum: No abnormal intraperitoneal fluid. No free air. Ventral Wall: No significant ventral hernia. Abdominal Nodes: No retroperitoneal or mesenteric adenopathy by size criteria. Vessels: Aorta and inferior vena cava are normal in size. PELVIS: Pelvic Organs: Unremarkable. Bladder: No bladder wall thickening, accounting for underdistention. Pelvic Nodes: No enlarged lymph nodes. Miscellaneous: No inguinal hernias are seen. Bones: No aggressive osseous abnormality. IMPRESSION: Colitis predominantly involving the right and transverse colon. Infectious/inflammatory etiologies would be primary differential. Large amount of fecal debris throughout the colon and free fluid in the pelvis. No evidence of organized abscess or perforation. No obstruction. Hepatomegaly with steatosis. No focal mass lesion. Approved by: Bebeto Guerrier M.D. on 07/14/2025 at 9:41 ECG Data Attestation: I personally reviewed and interpreted this ECG as follows: Prior ECG tracings: available for review Interpretation: Sinus tachycardia rate 114 MS interval 204 QRS [address] changes MDM Narrative Medical decision making narrative: MDM CC: Abdominal pain diarrhea chest pain shortness of Complicating co-morbidities: Type 2 diabetes cold hemoglobin in DVT on Eliquis asthma obesity Data collected from: Patient multiple records reviewed Medical records reviewed: See HPI multiple records reviewed Differential considered: C diff colitis, sepsis, inflammatory colitis Exam documented above, pertinent findings include: Obese 55-year-old male abdomen is mildly tender but no peritoneal signs breath sounds are clear no significant respiratory distress left leg is definitely more swollen than the right with what appears to be a healing cellulitis Lab Test results independently reviewed as above. Pertinent findings: WBC 35.7 Lactate 1.4 Procalcitonin 0.699 Sodium is 126, potassium 3.4 chloride 94 carbon dioxide 21 BUN 47 creatinine 1.17 Independently reviewed EKG as above Sinus rhythm no ischemia Imaging studies independently reviewed: CT angio no pulmonary embolism left lower lobe platelike atelectasis CT abdomen pelvis colitis predominantly involving right and transverse colon infections and inflammatory Consultations: Dr. Rodriguez, hospitalist, updated patient's symptoms test results has reviewed records based on his prior history patient frequently decompensates and patient will likely require higher level of care. Dr. Hayward, hospitalist at [facility] updated patient's symptoms test results concerns of our hospitalist kindly accepts patient Attempted calling [email or web address] system unfortunately long time to return call. Finally did talk to hospitalist who recommended keeping the patient there at [place] Dr. Rodriguez, hospitalist updated on [facility] concerns at this time he still does not accept patient Patient is accepted at [facility] and agrees to go to [facility] by ambulance Treatments: Sepsis fluids, Levaquin and vancomycin. Patient has significant allergies penicillin and cephalosporin. Home dose of oxycodone and home dose of Flexeril along with his home Eliquis Re-evaluations: Patient blood pressure is up and down and somewhat labile. His tachycardia has improved with IV fluids and pain medications. He overall appears nontoxic. He has been unable to provide a stool sample in the emergency department Discussion: Patient 55-year-old male multiple comorbidities medical problems presenting today with variety of symptoms. He is found to have significant leukocytosis of [address] abdomen pelvis which shows colitis. He has a normal lactate no concern for ischemic bowel pain is also not out of proportion. Concern in high suspicion for C diff colitis however not able to collect a stool sample. He is given IV vancomycin. At this time blood pressure is responsive to fluids no need for vasopressors. Critical Care Time Critical Care Time Critical Care Time: Yes Total Critical Care Time: 35 Attestation: The high probability of a clinically significant, sudden or life threatening deterioration of the [cardiovascular] system(s) required my full and direct attention, intervention and personal management. The aggregate critical care time was 35 minutes. This time is in addition to time spent performing reported procedures but includes the following: [x] Data Review and interpretation [x] Patient assessment and monitoring of vital signs [x] Documentation [x] Medication orders and management Discharge Plan Departure Patient Disposition: [facility] Clinical Impression: Colitis, Sepsis Prescriptions: No Action trazodone 150 mg tablet 150 mg PO BEDTIME PRN (Reason: insomnia) Qty: 30 2RF nicotine 14 mg/24 hr patch 24 hour 1 patch transdermal DAILY Qty: 28 2RF Rx Instructions: remove one hour before bedtime diazepam 2 mg tablet 4 mg PO BEDTIME PRN (Reason: sleep) Qty: 60 1RF venlafaxine 75 mg tablet extended release 24hr See Rx Instructions .ROUTE .COMPLEX Qty: 90 2RF Rx Instructions: Take one tablet by mouth every morning for one week, then increase to two tablets by mouth every morning for one week, then increase to three tablets by mouth every morning thereafter albuterol sulfate 90 mcg/actuation HFA aerosol inhaler See Rx Instructions .ROUTE .COMPLEX Qty: 8.5 5RF Dose Instruction: inhale 2 puffs by mouth every 6 hours if needed for shortness of breath or wheezing Rx Instructions: inhale 2 puffs by mouth every 6 hours if needed for shortness of breath or wheezing ferrous gluconate 324 mg (37.5 mg iron) tablet 324 mg PO DAILY Qty: 90 3RF finasteride 5 mg tablet 5 mg PO DAILY Qty: 90 1RF Rx Instructions: take 1 tablet by mouth once daily losartan 100 mg tablet 100 mg PO DAILY Qty: 90 3RF amlodipine 10 mg tablet 10 mg PO DAILY Qty: 90 1RF Rx Instructions: take 1 tablet by mouth once daily Dulera 200-5 mcg/actuation HFA aerosol inhaler See Rx Instructions .ROUTE .COMPLEX Qty: 13 6RF Dose Instruction: inhale 2 puffs by mouth and INTO THE LUNGS twice a day Rx Instructions: inhale 2 puffs by mouth and INTO THE LUNGS twice a day Mounjaro 10 mg/0.5 mL pen injector 10 mg SUBCUT QWEEK Qty: 2 0RF Rx Instructions: take for 4 weeks then switch to 12.5mg dosage buprenorphine-naloxone [Suboxone] 2-0.5 mg film See Rx Instructions buccal .COMPLEX Qty: 30 0RF Rx Instructions: place 1/2 strip/tab under side of tongue three times daily until you see provider. Patient under close supervision of PCP, specialist, and casey saw operator oxycodone-acetaminophen [Percocet] 10-325 mg tablet See Rx Instructions PO .COMPLEX PRN (Reason: pain) Qty: 120 0RF Rx Instructions: take 2 tablets by mouth every 6 hours if needed for pain epinephrine [EpiPen 2-Nura] 0.3 mg/0.3 mL auto-injector 0.3 mg IM SEE INSTRUCTIONS Qty: 2 5RF spironolactone 25 mg tablet 25 mg PO BID cyclobenzaprine 10 mg tablet 10 mg PO TID PRN (Reason: muscle spasm) Qty: 180 3RF Rx Instructions: take 1 tablet by mouth three times a day if needed for SPASM(S) gabapentin 600 mg tablet 1,200 mg PO TID Qty: 240 3RF lidocaine [Lidoderm] 5 % adhesive patch,medicated 1 patch topical DAILY Qty: 30 2RF Rx Instructions: leave on most painful area for up to 12 hrs famotidine 20 mg tablet 20 mg PO BID dapagliflozin propanediol 10 mg tablet 10 mg PO DAILY Eliquis 5 mg tablet 5 mg PO BID Qty: 180 0RF furosemide 40 mg tablet See Rx Instructions .ROUTE .COMPLEX PRN (Reason: Swelling) Rx Instructions: 1-2 tabs as needed for swelling tiotropium bromide [Spiriva with HandiHaler] 18 mcg capsule, w/inhalation device See Rx Instructions .ROUTE .COMPLEX Rx Instructions: inhale THE contents of 1 capsule in THE HANDIHALER once daily x2 puffs am and x2 puffs hs Qvar RediHaler 80 mcg/actuation HFA aerosol breath activated See Rx Instructions .ROUTE .COMPLEX Rx Instructions: inhale 2 puff by mouth every 12 hours metformin 500 mg tablet See Rx Instructions .ROUTE .COMPLEX Patient Comments: three tablets in the a.m. Rx Instructions: take 2 tablets by mouth 1700 prednisone 10 mg tablet 10 mg PO DAILY levofloxacin 750 mg tablet 750 mg PO DAILY Qty: 7 0RF Referrals: Ricardo Victoria MD [Primary Care Provider, Family Practice]
--- NOTE | 2025-07-14 08:58 | EKG_ITS ---
[place] [id number] [place] [id number] Test Date: 2025-07-14 Pat Name: Bandar George Department: Room: Gender: Male [employer]: SUNDAR : 1970 Requested By: Order Number: [id number] Reading MD: Dereck Kwan MD Measurements Intervals [place] Rate: 114 P: 63 [place]: 204 QRS: 29 QRSD: 82 T: 74 QT: 316 QTc: 435 Interpretive Statements Sinus tachycardia with premature supraventricular complexes Cannot rule out Inferior infarct , age undetermined Cannot rule out Anterior infarct , age undetermined Electronically Signed On 07-22-2025 9:02:01 PST by Dereck Kwan MD
--- NOTE | 2025-07-14 09:25 | PC.NURSE ---
pt to CT
[2025-07-14] MEDS: PANTOPRAZOLE 40 MG VIAL IV (09:26)
[2025-07-14] MEDS: ONDANSETRON 4 MG/2 ML INJ IV ×2 (09:26→15:48)
[2025-07-14 09:39] LABS: Alanine Aminotransferase 12 IU/L (<50); Albumin 3.3 g/dL (3.5-5.0); Albumin Globulin Ratio 1.2 (1.0-2.8); Alkaline Phosphatase 93 U/L (38-126); Blood Urea Nitrogen 47 mg/dL (9-20); Calcium 7.3 mg/dL (8.4-10.2); Carbon Dioxide 21 mmol/L (22-32); Chloride 94 mmol/L (98-107); Creatine Kinase < 20 U/L (55-170); Estimated Glomerular Filt Rate > 60 mL/min (>60); Globulin 2.7 g/dL (1.7-4.1); Glucose 329 mg/dL (70-99); HEMOLYSIS < 15 (0-50); Potassium 4.2 mmol/L (3.4-5.1); Sodium 126 mmol/L (137-145); Total Protein 6.0 g/dL (6.3-8.2)
[2025-07-14 09:43] LABS: Add Manual Diff / Slide Review NO; Hematocrit 36.2 % (41-53); Hemoglobin 12.0 g/dL (13.5-17.5); Lipase 12 U/L (23-300); Lymphocytes Absolute Auto 1100 /uL (1100-4500); Mean Corpuscular HGB Conc 33.1 % (30-36); Mean Corpuscular Hemoglobin 27.7 PG (26-34); Mean Corpuscular Volume 83.7 fL (80-100); Platelet Count 238 X10^3/uL (150-400)
[2025-07-14 09:51] LABS: Troponin I < 0.012 ng/mL (0.01-0.034)
[2025-07-14 09:54] LABS: NT-proBNP (BNP-Adult 18+) 275 pg/mL (<125)
[2025-07-14 09:56] LABS: Procalcitonin 0.699 ng/mL (<0.5)
[2025-07-14 09:58] LABS: Lactate (Lactic Acid) 1.4 mmol/L (0.7-2.1)
[2025-07-14] MEDS: SODIUM CHLORIDE 0.9% 1,000 ML 1000 ML IV (10:05)
[2025-07-14] MEDS: VANCOMYCIN 2,000 MG/400 ML PIGGYBACK 200 MG IV (10:05)
[2025-07-14 10:06] LABS: Influenza A - CEPHEID Flu A NEGATIVE (NEGATIVE); Influenza B - CEPHEID Flu B NEGATIVE (NEGATIVE)
[2025-07-14 10:15] LABS: COVID-19 CEPHEID 4-PLEX PCR Negative (Negative)
--- NOTE | 2025-07-14 11:24 | PC.NURSE ---
[facility] transfer requested @0880. Spoke with FRANCIA Freed at transfer center to initiate. [facility] hospitalist being paged @[phone].
--- NOTE | 2025-07-14 11:47 | PC.NURSE ---
Pt states starting to feel better after pain medication. Pt states frustration that he needs to stay in the hospital setting but is understanding
--- NOTE | 2025-07-14 12:44 | PC.NURSE ---
pt up to restroom on own
[2025-07-14 13:06] LABS: Appearance Urine UA CLEAR; Bilirubin Urine UA NEGATIVE (NEGATIVE); Color Urine UA YELLOW; Glucose Urine UA 3+ g/dL (Negative); Ketones Urine UA NEGATIVE (NEGATIVE); Leukocyte Esterase Urine UA NEGATIVE (NEGATIVE); Nitrite Urine UA NEGATIVE (Negative); Occult Blood Urine UA NEGATIVE (Negative); Protein Urine UA NEGATIVE (Negative); Specific Gravity Urine UA <=1.005 (1.000-1.035); Urobilinogen Urine UA 0.2 E.U./dL (0.2); pH Urine UA 5.5 (4.5-8.0)
[2025-07-14] MEDS: SODIUM CHLORIDE 0.9% 1,000 ML 125 ML IV (13:23)
--- NOTE | 2025-07-14 13:30 | PC.NURSE ---
When giving patient his medication he mentioned he had a difference medication regimine. Pt states 20 mg oxycodone every 4 horus. Provider aware
--- NOTE | 2025-07-14 13:38 | PC.NURSE ---
[facility] transfer requested @ 2998. Spoke with Basia and passed the call to to give report on patient. transfer center stated they would call back.
[2025-07-14] MEDS: SODIUM CHLORIDE 0.9% 2,190 ML 730 ML IV (14:00)
[2025-07-14] MEDS: APIXABAN 5 MG TABLET PO (14:58)
[2025-07-14] MEDS: CYCLOBENZAPRINE 10 MG TABLET PO (14:59)
--- NOTE | 2025-07-14 15:16 | PC.NURSE ---
pt given jello, pudding and turkey sandwich per request. Provider approved
--- NOTE | 2025-07-14 15:28 | PC.NURSE ---
attempted to call nurse at [facility] for report. Jazmín, from reported the nurse would call me back when they get out of a room for report
--- NOTE | 2025-07-14 15:30 | PC.NURSE ---
report given to [facility]
== END 2025-07-14 15:42 | disposition short-term general hospital (02) ==
PROVIDERS: Emergency Provider Emergency Medicine; Family Provider Family Medicine; PCP Family Medicine
DX: K52.9 Noninfective gastroenteritis and colitis, unspecified (principal); A41.9 Sepsis, unspecified organism; R50.9 Fever, unspecified; R10.12 Left upper quadrant pain; R06.02 Shortness of breath; Z79.01 Long term (current) use of anticoagulants; E11.9 Type 2 diabetes mellitus without complications
CPT/HCPCS: 36415; 71275; 74177; 80053; 81001; 82550; 83605; 83690; 83880; 84145; 84484; 85025; 87040; 87637; 93005; 96361; 96365; 96366; 96367; 96375; 96376; 99284; 99291; J1171; J1956; J2405; J2470; J3375; J7030; Q9967

== ENCOUNTER → 2025-07-20 09:28 | Outpatient (CLI) | payer OTHER, SELFPAY ==
[2025-05-23 17:12] VITALS: PULSE 106; RESP 24; O2SAT 94
[2025-07-02 04:28] VITALS: BMI 37.7
[2025-07-20 11:03] LABS: Reticulocyte Count, Percent 0.9 % (0.9-2.6)
[2025-07-20 11:05] LABS: Add Manual Diff / Slide Review NO; Hematocrit 32.8 % (41-53); Hemoglobin 10.8 g/dL (13.5-17.5); Lymphocytes Absolute Auto 1100 /uL (1100-4500); Mean Corpuscular HGB Conc 32.9 % (30-36); Mean Corpuscular Hemoglobin 27.7 PG (26-34); Mean Corpuscular Volume 84.4 fL (80-100); Platelet Count 469 X10^3/uL (150-400)
[2025-07-20 11:15] LABS: Hemoglobin A1C% w Est Avg Glu 7.5 % (4.0-6.0)
[2025-07-20 11:47] LABS: Alanine Aminotransferase 12 IU/L (<50); Albumin 3.0 g/dL (3.5-5.0); Albumin Globulin Ratio 1.3 (1.0-2.8); Alkaline Phosphatase 150 U/L (38-126); Blood Urea Nitrogen 45 mg/dL (9-20); Calcium 8.3 mg/dL (8.4-10.2); Carbon Dioxide 21 mmol/L (22-32); Chloride 94 mmol/L (98-107); Estimated Glomerular Filt Rate > 60 mL/min (>60); Globulin 2.3 g/dL (1.7-4.1); Glucose 283 mg/dL (70-99); HEMOLYSIS < 15 (0-50); Magnesium 1.6 mg/dL (1.6-2.3); Sodium 125 mmol/L (137-145); Total Protein 5.3 g/dL (6.3-8.2)
[2025-07-20 11:50] LABS: Potassium 5.9 mmol/L (3.4-5.1)
[2025-07-24 13:11] LABS: Free Kappa Lt Chains, Serum 32.6 mg/L (3.3-19.4); Free Lambda Lt Chains,Serum 32.3 mg/L (5.7-26.3)
== END ==
LOC: LAB 09:31
PROVIDERS: Family Provider Family Medicine; PCP Family Medicine; Referring Provider Student in an Organized Health Care Education/Training Program; Visit Provider Student in an Organized Health Care Education/Training Program
DX: D47.2 Monoclonal gammopathy (principal); D59.12 Cold autoimmune hemolytic anemia; A04.72 Enterocolitis due to Clostridium difficile, not specified as recurrent; K52.9 Noninfective gastroenteritis and colitis, unspecified; E87.1 Hypo-osmolality and hyponatremia; E83.42 Hypomagnesemia; E11.9 Type 2 diabetes mellitus without complications
CPT/HCPCS: 36415; 80053; 83036; 83615; 83735; 83883; 85025; 85045

== ENCOUNTER → 2025-07-23 09:05 | Outpatient (CLI) | payer OTHER, SELFPAY ==
[2025-05-23 17:12] VITALS: PULSE 106; RESP 24; O2SAT 94
[2025-07-02 04:28] VITALS: BMI 37.7
== END ==
LOC: WC 09:05
PROVIDERS: Family Provider Family Medicine; PCP Family Medicine; Referring Provider Family Medicine; Visit Provider Surgery
DX: L89.893 Pressure ulcer of other site, stage 3 (principal); E11.628 Type 2 diabetes mellitus with other skin complications; I87.2 Venous insufficiency (chronic) (peripheral); Z87.891 Personal history of nicotine dependence; Z79.01 Long term (current) use of anticoagulants
CPT/HCPCS: 11042; 99213

== ENCOUNTER → 2025-07-25 10:20 | Outpatient (CLI) | payer OTHER, SELFPAY ==
[2025-05-23 17:12] VITALS: PULSE 106; RESP 24; O2SAT 94
[2025-07-02 04:28] VITALS: BMI 37.7
[2025-07-25 11:08] LABS: Add Manual Diff / Slide Review NO; Hematocrit 33.1 % (41-53); Hemoglobin 10.6 g/dL (13.5-17.5); Lymphocytes Absolute Auto 1600 /uL (1100-4500); Mean Corpuscular HGB Conc 32.0 % (30-36); Mean Corpuscular Hemoglobin 27.7 PG (26-34); Mean Corpuscular Volume 86.7 fL (80-100); Platelet Count 494 X10^3/uL (150-400)
[2025-07-25 11:23] LABS: Alanine Aminotransferase 15 IU/L (<50); Albumin 3.6 g/dL (3.5-5.0); Albumin Globulin Ratio 1.6 (1.0-2.8); Alkaline Phosphatase 165 U/L (38-126); Blood Urea Nitrogen 37 mg/dL (9-20); Calcium 8.8 mg/dL (8.4-10.2); Carbon Dioxide 28 mmol/L (22-32); Chloride 88 mmol/L (98-107); Estimated Glomerular Filt Rate > 60 mL/min (>60); Globulin 2.3 g/dL (1.7-4.1); HEMOLYSIS < 15 (0-50); Sodium 127 mmol/L (137-145); Total Protein 5.9 g/dL (6.3-8.2)
[2025-07-25 11:48] LABS: Potassium 5.4 mmol/L (3.4-5.1)
[2025-07-25 11:52] LABS: Glucose 668 mg/dL (70-99)
== END ==
PROVIDERS: Family Provider Family Medicine; PCP Family Medicine; Referring Provider Family Medicine; Visit Provider Family Medicine
DX: D59.12 Cold autoimmune hemolytic anemia (principal); E87.5 Hyperkalemia
CPT/HCPCS: 36415; 80053; 85025

== ENCOUNTER 2025-07-25 13:24 | Observation (INO) | payer OTHER, SELFPAY ==
[2025-05-23 17:12] VITALS: PULSE 106; RESP 24; O2SAT 94
[2025-07-02 04:28] VITALS: BMI 37.7
[2025-07-25] VITALS (7 sets, daily range): BP systolic 113–140; BP diastolic 58–86; PULSE 88–105; RESP 17–18; TEMP 35.7–36.6; O2SAT 95–98; BMI 38.0
[2025-07-25 13:47] LABS: Hematocrit 34.2 % (41-53); Hemoglobin 10.9 g/dL (13.5-17.5); Lymphocytes Absolute Auto 1000 /uL (1100-4500); Mean Corpuscular HGB Conc 31.9 % (30-36); Mean Corpuscular Hemoglobin 27.6 PG (26-34); Mean Corpuscular Volume 86.4 fL (80-100); Platelet Count 499 X10^3/uL (150-400)
[2025-07-25 13:52] LABS: Base Excess VBG 2.6 mmol/L (0-4); HCO3 VBG 28 mmol/L (24-28); Oxygen Saturation VBG 82 % (70-75); PCO2 VBG 42.8 mmHg (45-50); PO2 VBG 46 mmHg (35-45); Total CO2 VBG 26 mmol/L (24-29); pH VBG 7.42 (7.33-7.43)
[2025-07-25 13:56] LABS: HEMOLYSIS < 15 (0-50)
[2025-07-25 14:01] LABS: Alanine Aminotransferase 18 IU/L (<50); Albumin 4.0 g/dL (3.5-5.0); Albumin Globulin Ratio 1.4 (1.0-2.8); Alkaline Phosphatase 192 U/L (38-126); Blood Urea Nitrogen 39 mg/dL (9-20); Calcium 8.8 mg/dL (8.4-10.2); Carbon Dioxide 26 mmol/L (22-32); Chloride 91 mmol/L (98-107); Estimated Glomerular Filt Rate > 60 mL/min (>60); Globulin 2.8 g/dL (1.7-4.1); Magnesium 1.1 mg/dL (1.6-2.3); Sodium 127 mmol/L (137-145); Total Protein 6.8 g/dL (6.3-8.2)
--- NOTE | 2025-07-25 14:01 | DI.CT.S_ITS ---
PROCEDURE: CT ABDOMEN PELVIS W CON INDICATIONS: cdiff, on oral vanco seen 07/14/25 still diarrhea TECHNIQUE: After the administration of intravenous contrast, axial sections acquired from the lung bases to the pubic symphysis. Coronal and sagittal reformats were performed. For radiation dose reduction, the following was used: automated exposure control, adjustment of mA and/or kV according to patient size. COMPARISON: [facility], CT, CT ABDOMEN PELVIS W CON, 07/14/2025, 9:08. FINDINGS: Image quality: Diagnostic. Lower Chest: Left basilar atelectasis is seen. Heart size is normal, no pericardial effusion. ABDOMEN: Liver: No solid mass. Hepatomegaly and hepatic steatosis is again seen. Gallbladder: No radiopaque gallstones or wall thickening. Biliary ducts: No biliary dilation. Pancreas: No ductal dilation. Spleen: Size is within normal limits. Adrenal Glands: No adrenal nodules. Kidneys and Ureters: Nonobstructing left renal calculi are again seen. Simple appearing bilateral renal cysts are also noted. No hydronephrosis. No solid mass. No complex renal cystic lesion which requires follow up. Stomach and Bowel: There is moderate to severe fecal stasis in the colon. Wall thickening and pericolonic fat stranding involving descending colon is seen on the current study concerning for colitis. No abscess collection. No extra luminal air to suggest perforation. Normal appendix. Peritoneum: No abnormal intraperitoneal fluid. No free air. Ventral Wall: No significant ventral hernia. Abdominal Nodes: No retroperitoneal or mesenteric adenopathy by size criteria. Vessels: Aorta and inferior vena cava are normal in size. PELVIS: Pelvic Organs: Unremarkable. Bladder: No bladder wall thickening, accounting for underdistention. Pelvic Nodes: No enlarged lymph nodes. Miscellaneous: No inguinal hernias are seen. Bones: No aggressive osseous abnormality. IMPRESSION: 1. Finding is suggestive of predominantly left-sided colitis on the current study. No abscess collection. No perforation. No peritoneal free fluid or free air. 2. Moderate constipation. Normal appendix. No other area of abnormal bowel wall thickening. 3. Other findings are unchanged from prior study. Dictated by: Juice Hankins M.D. on 07/25/2025 at 14:46 Approved by: Juice Hankisn M.D. on 07/25/2025 at 14:49
[2025-07-25 14:02] LABS: Potassium 5.5 mmol/L (3.4-5.1)
[2025-07-25] MEDS: CYCLOBENZAPRINE 10 MG TABLET PO ×2 (14:16→21:31)
[2025-07-25] MEDS: ONDANSETRON 4 MG/2 ML INJ IV (14:16)
[2025-07-25] MEDS: LACTATED RINGERS 2,190 ML 730 ML IV (14:17)
[2025-07-25] MEDS: MAGNESIUM SULFATE 2 GM/50 ML PIGGYBACK IV (14:17)
[2025-07-25 14:21] LABS: Glucose 678 mg/dL (70-99)
[2025-07-25 14:42] LABS: Anisocytosis 1+
--- NOTE | 2025-07-25 14:46 | ED.GENADULT ---
HPI - General Adult <Tika Ojeda PA-C - Last Filed: 07/25/25 16:30> General Chief complaint: Diabetic Problem Stated complaint: sent from PCP blood sugar over 600. Time Seen by Provider: 07/25/25 13:30 Source: patient Mode of arrival: Ambulatory History of Present Illness HPI narrative: Mr. George is a pleasant 55-year-old gentleman with a past medical history of cold agglutinin hemolyitc anemia, type 2 diabetes on metformin, LLE DVT on Eliquis, current C diff on oral vancomycin, asthma, hypertension, chronic pain on oxycodone who presents to the emergency department due to outpatient lab work with glucose greater than 600. He was discharged from [facility] last after being admitted for C diff colitis. Patient reports he was discharged home on oral vancomycin, he has been doing about the same with intermittent cramping abdominal pain, frequent brown/yellow loose stools every 6-8 hours. Reports subjective fevers on Wednesday but none today. He denies chest pain, shortness of breath, hematuria, dysuria, flank pain. Reports that he would not have come into the emergency department if he was not told to come in for elevated sugar. End of April he was stopped on Mounjaro due to all of his comorbidities, he is currently only taking metformin for his glucose, has been noticing his blood sugars have been higher however never above 600 like today. Reports some nausea with occasional vomiting which resolves with Zofran. He is here with his partner. Related Data Home Medications ?Medication ?Instructions ?Recorded ?Confirmed spironolactone 25 mg tablet 25 mg PO BID 12/28/23 07/19/25 furosemide 40 mg tablet See Rx Instructions .Route 06/10/24 07/19/25 .COMPLEX PRN Swelling beclomethasone dipropionate 80 See Rx Instructions .Route .COMPLEX 05/18/25 07/19/25 mcg/actuation HFA breath activated aerosol (Qvar RediHaler) tiotropium bromide 18 mcg capsule See Rx Instructions .Route .COMPLEX 05/18/25 07/19/25 with inhalation device (Spiriva with HandiHaler) dapagliflozin propanediol 10 mg 10 mg PO DAILY 06/14/25 07/19/25 tablet famotidine 20 mg tablet 20 mg PO BID 06/14/25 07/19/25 metformin 500 mg tablet See Rx Instructions .Route .COMPLEX 07/02/25 07/19/25 prednisone 10 mg tablet 10 mg PO DAILY 07/02/25 07/19/25 vancomycin 125 mg capsule 125 mg PO QID 07/19/25 07/19/25 Previous Rx's ?Medication ?Instructions ?Recorded epinephrine 0.3 mg/0.3 mL 0.3 mg (0.3 mL) IM SEE 07/17/19 injection, auto-injector (EpiPen INSTRUCTIONS #2 ea 2-Nura) albuterol sulfate 90 mcg/actuation See Rx Instructions .Route 01/31/25 aerosol inhaler .COMPLEX #8.5 grams ferrous gluconate 324 mg (37.5 mg 324 mg PO DAILY #90 tabs 01/31/25 iron) tablet finasteride 5 mg tablet 5 mg PO DAILY #90 tabs 01/31/25 losartan 100 mg tablet 100 mg PO DAILY #90 tabs 01/31/25 cyclobenzaprine 10 mg tablet 10 mg PO TID PRN muscle spasm #180 02/01/25 tabs gabapentin 600 mg tablet 1,200 mg (2 x 600 mg) PO TID #240 02/27/25 tabs lidocaine 5 % topical patch 1 patch topical DAILY #30 ea 02/27/25 (Lidoderm) amlodipine 10 mg tablet 10 mg PO DAILY #90 tabs 05/07/25 mometasone-formoterol HFA 200 See Rx Instructions .Route 05/07/25 mcg-5 mcg/actuation aerosol .COMPLEX #13 grams inhaler (Dulera) nicotine 14 mg/24 hr daily 1 patch transdermal DAILY #28 ea 05/16/25 transdermal patch trazodone 150 mg tablet 150 mg PO BEDTIME PRN insomnia #30 05/16/25 tabs apixaban 5 mg tablet (Eliquis) 5 mg PO BID #180 tabs 06/19/25 venlafaxine 75 mg tablet,extended See Rx Instructions .Route 06/27/25 release 24 hr .COMPLEX #90 tabs tirzepatide 10 mg/0.5 mL 10 mg (0.5 mL) SUBCUT QWEEK #2 mL 07/02/25 subcutaneous pen injector (Brunilda) levofloxacin 750 mg tablet 750 mg PO DAILY #7 tabs 07/03/25 buprenorphine 2 mg-naloxone 0.5 mg See Rx Instructions buccal 07/05/25 sublingual film (Suboxone) .COMPLEX #30 ea diazepam 2 mg tablet 4 mg (2 x 2 mg) PO BEDTIME PRN 07/20/25 sleep #60 tabs oxycodone-acetaminophen 10 mg-325 See Rx Instructions PO .COMPLEX 07/23/25 mg tablet (Percocet) PRN pain #120 tabs Allergies Allergy/AdvReac Type Severity Reaction Status Date / Time clindamycin Allergy Intermediate Verified 07/25/25 13:32 cephalexin (CEPHALEXIN) Allergy Mild FACIAL Verified 07/25/25 13:32 SWELLING terbinafine (TERBINAFINE) Allergy Unknown Unknown Verified 07/25/25 13:32 nut - unspecified Allergy Anaphylaxis Verified 07/25/25 13:32 benralizumab (From Fasenra) AdvReac Severe SOB Verified 07/25/25 13:32 Penicillins (PENICILLINS) AdvReac Severe Facial/mouth Verified 07/25/25 13:32 numbness, mouth/lip swelling Cephalosporins AdvReac Intermediate Vomiting Verified 07/25/25 13:32 (CEPHALOSPORINS) Beta-Blockers AdvReac Mild ASTHMA Verified 07/25/25 13:32 (Beta-Adrenergic Bloc doxycycline (DOXYCYCLINE) AdvReac Mild HIVES Verified 07/25/25 13:32 nadolol (NADOLOL) AdvReac Mild AGGREVATES Verified 07/25/25 13:32 ASTHMA semaglutide (From Ozempic) AdvReac Mild CONSTIPATIO Verified 07/25/25 13:32 N Sulfa (Sulfonamide AdvReac Mild VOMITING Verified 07/25/25 13:32 Antibiotics) (SULFA (SULFONAMIDE ANTIBIOTICS)) Review of Systems <Tika Ojeda PA-C - Last Filed: 07/25/25 16:30> Review of Systems ROS Unobtainable: All systems reviewed & are unremarkable except as noted in HPI and below Patient History <Tika Ojeda PA-C - Last Filed: 07/25/25 16:30> Medical History Cold agglutinin disease C. 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 Iron deficiency anemia Chronic pain syndrome Cervical stenosis of spinal canal Hypertension Hyperlipidemia Varicose vein of leg Myocarditis Surgical History No pertinent past surgical history Social History marital status: unmarried,single household members: significant other lives independently: Yes occupational status: disabled alcohol intake: never substance use type: does not use tobacco type: cigarettes alcohol intake frequency: other Exam <Tika Ojeda PA-C - Last Filed: 07/25/25 16:30> Narrative Exam Narrative: GENERAL: 55 year old patient appears stated age. Overweight patient, in no acute distress. HEAD: Atraumatic. Normocephalic. EYES: No scleral icterus. No injection or drainage. NECK: Trachea midline. Cervical ROM intact. CARDIOVASCULAR: Increased rate and regular rhythm. RESPIRATORY: ?Nonlabored respirations. ?Speaking in clear, full sentences. ?Clear to auscultation. GASTROINTESTINAL: Abdomen soft, non-tender, nondistended. BS present. BACK: No CVA tenderness. NEURO: AOx3. ?Clear speech. ?Moves all 4 extremities appropriately. SKIN: LLE with chronic skin darkening, recent cellulitis. Initial Vital Signs Initial Vital Signs: Vital Signs Temperature 98 F 07/25/25 13:32 Pulse Rate 105 H 07/25/25 13:32 Respiratory Rate 17 07/25/25 13:32 Blood Pressure 124/58 L 07/25/25 13:32 Pulse Oximetry 98 07/25/25 13:32 Oxygen Delivery Method Room Air 07/25/25 13:32 <Valeria Hunter DO - Last Filed: 07/25/25 16:39> Initial Vital Signs Initial Vital Signs: Vital Signs Temperature 98 F 07/25/25 13:32 Pulse Rate 105 H 07/25/25 13:32 Respiratory Rate 17 07/25/25 13:32 Blood Pressure 124/58 L 07/25/25 13:32 Pulse Oximetry 98 07/25/25 13:32 Oxygen Delivery Method Room Air 07/25/25 13:32 Course <Tika Ojeda PA-C - Last Filed: 07/25/25 16:30> Orders Ordered: ED Orders 07/25/25 13:35 CBC Auto Diff [Complete Blood Count AUTO DIFF] Stat CMP [Comprehensive Metabolic Panel] Stat Ketones (Beta-Hydroxybutyrate) Stat Magnesium Stat Procalcitonin Stat 07/25/25 13:37 VBG [Venous Blood Gas] STAT 07/25/25 13:48 Venous Blood Gas Routine 07/25/25 14:01 CT abdomen pelvis w con Stat 07/25/25 14:39 Blood Culture Stat 07/25/25 14:54 Lactate (Lactic Acid) Stat Lactated Ringer's (Lactated Ringers) 2,190 mls @ 730 mls/hr 30 ml/kg infuse over 3 hr (2190 ml) IV NOW ONE Stop: 07/25/25 17:02 Last Admin: 07/25/25 14:17 Dose: 730 mls/hr Documented By: JACKIE Discontinued Medications Cyclobenzaprine HCl (Cyclobenzaprine 10 Mg Tablet) 10 mg PO NOW ONE Stop: 07/25/25 14:07 Last Admin: 07/25/25 14:16 Dose: 10 mg Documented By: JACKIE Lactated Ringer's (Lactated Ringers) 500 mls @ 1,000 mls/hr IV BOLUS ONE Stop: 07/25/25 14:14 Last Admin: 07/25/25 14:12 Dose: Not Given Documented By: JACKIE Sodium Chloride (Normal Saline 0.9%) 2,190 mls @ 730 mls/hr 30 ml/kg infuse over 3 hr (2190 ml) IV NOW ONE Stop: 07/25/25 17:00 Last Admin: 07/25/25 14:07 Dose: Not Given Documented By: JACKIE Magnesium Sulfate (Magnesium Sulfate) 2 gm in 50 mls @ 150 mls/hr IV NOW ONE Stop: 07/25/25 14:22 Last Infusion: 07/25/25 15:27 Dose: Infused Documented By: JACKIE Co-signed By: RB Admin: 07/25/25 14:17 Dose: 150 mls/hr Documented By: JACKIE Co-signed By: ROMANA Insulin Human Regular (Insulin Regular 100 Unit/Ml 3 Ml Vial) 5 unit SUBCUT NOW ONE Stop: 07/25/25 16:02 Last Admin: 07/25/25 16:21 Dose: 5 unit Documented By: JACKIE Co-signed By: MADELIN Ondansetron HCl (Ondansetron 4 Mg/2 Ml Inj) 4 mg IV NOW ONE Stop: 07/25/25 14:03 Last Admin: 07/25/25 14:16 Dose: 4 mg Documented By: JACKIE Oxycodone/Acetaminophen (Oxycodone/Acetaminophen 5/325 Tablet) 2 tab PO NOW ONE Stop: 07/25/25 14:01 Last Admin: 07/25/25 14:16 Dose: 2 tab Documented By: JACKIE Vital Signs Vital signs: Vital Signs - 8 hr 07/25/25 13:32 07/25/25 15:00 07/25/25 16:00 Temperature 98 F Pulse Rate 105 H 101 H 96 H Respiratory Rate 17 18 Blood Pressure 124/58 L 140/72 113/86 Pulse Oximetry 98 95 96 Oxygen Delivery Method Room Air Room Air <Valeria Hunter DO - Last Filed: 07/25/25 16:39> Orders Ordered: ED Orders 07/25/25 13:35 CBC Auto Diff [Complete Blood Count AUTO DIFF] Stat CMP [Comprehensive Metabolic Panel] Stat Ketones (Beta-Hydroxybutyrate) Stat Magnesium Stat Procalcitonin Stat 07/25/25 13:37 VBG [Venous Blood Gas] STAT 07/25/25 13:48 Venous Blood Gas Routine 07/25/25 14:01 CT abdomen pelvis w con Stat 07/25/25 14:39 Blood Culture Stat 07/25/25 14:54 Lactate (Lactic Acid) Stat Lactated Ringer's (Lactated Ringers) 2,190 mls @ 730 mls/hr 30 ml/kg infuse over 3 hr (2190 ml) IV NOW ONE Stop: 07/25/25 17:02 Last Admin: 07/25/25 14:17 Dose: 730 mls/hr Documented By: JACKIE Discontinued Medications Cyclobenzaprine HCl (Cyclobenzaprine 10 Mg Tablet) 10 mg PO NOW ONE Stop: 07/25/25 14:07 Last Admin: 07/25/25 14:16 Dose: 10 mg Documented By: JACKIE Lactated Ringer's (Lactated Ringers) 500 mls @ 1,000 mls/hr IV BOLUS ONE Stop: 07/25/25 14:14 Last Admin: 07/25/25 14:12 Dose: Not Given Documented By: JACKIE Sodium Chloride (Normal Saline 0.9%) 2,190 mls @ 730 mls/hr 30 ml/kg infuse over 3 hr (2190 ml) IV NOW ONE Stop: 07/25/25 17:00 Last Admin: 07/25/25 14:07 Dose: Not Given Documented By: JACKIE Magnesium Sulfate (Magnesium Sulfate) 2 gm in 50 mls @ 150 mls/hr IV NOW ONE Stop: 07/25/25 14:22 Last Infusion: 07/25/25 15:27 Dose: Infused Documented By: JACKIE Co-signed By: BERTA Admin: 07/25/25 14:17 Dose: 150 mls/hr Documented By: JACKIE Co-signed By: ROMANA Insulin Human Regular (Insulin Regular 100 Unit/Ml 3 Ml Vial) 5 unit SUBCUT NOW ONE Stop: 07/25/25 16:02 Last Admin: 07/25/25 16:21 Dose: 5 unit Documented By: JACKIE Co-signed By: MADELIN Ondansetron HCl (Ondansetron 4 Mg/2 Ml Inj) 4 mg IV NOW ONE Stop: 07/25/25 14:03 Last Admin: 07/25/25 14:16 Dose: 4 mg Documented By: JACKIE Oxycodone/Acetaminophen (Oxycodone/Acetaminophen 5/325 Tablet) 2 tab PO NOW ONE Stop: 07/25/25 14:01 Last Admin: 07/25/25 14:16 Dose: 2 tab Documented By: JACKIE Vital Signs Vital signs: Vital Signs - 8 hr 07/25/25 13:32 07/25/25 15:00 07/25/25 16:00 Temperature 98 F Pulse Rate 105 H 101 H 96 H Respiratory Rate 17 18 Blood Pressure 124/58 L 140/72 113/86 Pulse Oximetry 98 95 96 Oxygen Delivery Method Room Air Room Air Medical Decision Making <Tika Ojeda PA-C - Last Filed: 07/25/25 16:30> Medical Records Medical records reviewed: Yes I reviewed the patient's medical records. Medical records narrative: Patient was last in the ER on 07/14/2025 and was transferred to [facility] for colitis/sepsis. Lab Data 07/25/25 13:35 07/25/25 13:35 Labs: Lab Results 07/25/25 07/25/25 07/25/25 Range/Units 13:35 13:48 14:54 WBC 15.0 H (4.5-11.0) X10^3/uL RBC 3.95 L (4.5-5.9) X10^6/uL Hgb 10.9 L (13.5-17.5) g/dL Hct 34.2 L (41-53) % MCV 86.4 (80-100) fL MCH 27.6 (26-34) PG MCHC 31.9 (30-36) % RDW 16.7 H (11.6-14.8) % Plt Count 499 H (150-400) X10^3/uL Neut % (Auto) 89.4 H (50-75) % Lymph % (Auto) 6.8 L (25-40) % [place] % (Auto) 2.7 L (3-14) % Eos % (Auto) 0.2 L (2-4) % Baso % (Auto) 0.9 (0-2) % Neut # (Auto) 46969 H (2079-1856) /uL Lymph # (Auto) 1000 L (2693-4024) /uL [place] # (Auto) 400 (0-900) /uL Eos # (Auto) 0 (0-450) /uL Baso # (Auto) 100 (0-100) /uL RBC Morphology See below Anisocytosis 1+ H VBG pH 7.42 (7.33-7.43) VBG pCO2 42.8 L (45-50) mmHg VBG pO2 46 H (35-45) mmHg VBG HCO3 28 (24-28) mmol/L VBG Total CO2 26 (24-29) mmol/L VBG O2 Saturation 82 H (70-75) % VBG Base Excess 2.6 (0-4) mmol/L FiO2 % 21.0 % % Sodium 127 L (137-145) mmol/L Potassium 5.5 H (3.4-5.1) mmol/L Chloride 91 L (98-107) mmol/L Carbon Dioxide 26 (22-32) mmol/L BUN 39 H (9-20) mg/dL Creatinine 0.83 (0.66-1.25) mg/dL Estimated GFR > 60 (>60) mL/min BUN/Creatinine Ratio 47.0 H (6-22) Glucose 678 H* (70-99) mg/dL POC Whole Bld Glucose (70-99) mg/dL Lactate 1.3 (0.7-2.1) mmol/L Calcium 8.8 (8.4-10.2) mg/dL Magnesium 1.1 L (1.6-2.3) mg/dL Total Bilirubin 0.2 (0.2-1.3) mg/dL AST 21 (17-59) IU/L ALT 18 (<50) IU/L Alkaline Phosphatase 192 H (38-126) U/L Total Protein 6.8 (6.3-8.2) g/dL Albumin 4.0 (3.5-5.0) g/dL Globulin 2.8 (1.7-4.1) g/dL Albumin/Globulin Ratio 1.4 (1.0-2.8) Procalcitonin 0.261 (<0.5) ng/mL Ketones 0.35 H (<0.27) mmol/L 07/25/25 Range/Units 16:00 WBC (4.5-11.0) X10^3/uL RBC (4.5-5.9) X10^6/uL Hgb (13.5-17.5) g/dL Hct (41-53) % MCV (80-100) fL MCH (26-34) PG MCHC (30-36) % RDW (11.6-14.8) % Plt Count (150-400) X10^3/uL Neut % (Auto) (50-75) % Lymph % (Auto) (25-40) % [place] % (Auto) (3-14) % Eos % (Auto) (2-4) % Baso % (Auto) (0-2) % Neut # (Auto) (1289-1915) /uL Lymph # (Auto) (3797-0467) /uL [place] # (Auto) (0-900) /uL Eos # (Auto) (0-450) /uL Baso # (Auto) (0-100) /uL RBC Morphology Anisocytosis VBG pH (7.33-7.43) VBG pCO2 (45-50) mmHg VBG pO2 (35-45) mmHg VBG HCO3 (24-28) mmol/L VBG Total CO2 (24-29) mmol/L VBG O2 Saturation (70-75) % VBG Base Excess (0-4) mmol/L FiO2 % % Sodium (137-145) mmol/L Potassium (3.4-5.1) mmol/L Chloride (98-107) mmol/L Carbon Dioxide (22-32) mmol/L BUN (9-20) mg/dL Creatinine (0.66-1.25) mg/dL Estimated GFR (>60) mL/min BUN/Creatinine Ratio (6-22) Glucose (70-99) mg/dL POC Whole Bld Glucose > 500 H* (70-99) mg/dL Lactate (0.7-2.1) mmol/L Calcium (8.4-10.2) mg/dL Magnesium (1.6-2.3) mg/dL Total Bilirubin (0.2-1.3) mg/dL AST (17-59) IU/L ALT (<50) IU/L Alkaline Phosphatase (38-126) U/L Total Protein (6.3-8.2) g/dL Albumin (3.5-5.0) g/dL Globulin (1.7-4.1) g/dL Albumin/Globulin Ratio (1.0-2.8) Procalcitonin (<0.5) ng/mL Ketones (<0.27) mmol/L Urine Dip Bedside Urine Glucose 1000 mg/dl Bedside Urine Bilirubin - Negative Bedside Urine Ketone - Negative Urine Specific [place] 1.005 Bedside Urine Occult Blood - Negative Bedside Urine pH 6.5 Bedside Urine Protein - Negative Bedside Urine Urobilinogen - Negative Bedside Urine Nitrite - Negative Bedside Urine Leukocytes - Negative Esterase Point of care testing: Urine Dip Bedside Urine Glucose 1000 mg/dl Bedside Urine Bilirubin - Negative Bedside Urine Ketone - Negative Urine Specific [place] 1.005 Bedside Urine Occult Blood - Negative Bedside Urine pH 6.5 Bedside Urine Protein - Negative Bedside Urine Urobilinogen - Negative Bedside Urine Nitrite - Negative Bedside Urine Leukocytes - Negative Esterase Imaging Data CT scan - abdomen/pelvis: Radiologist's Impression: PROCEDURE: CT ABDOMEN PELVIS W CON INDICATIONS: cdiff, on oral vanco seen 07/14/25 still diarrhea TECHNIQUE: After the administration of intravenous contrast, axial sections acquired from the lung bases to the pubic symphysis. Coronal and sagittal reformats were performed. For radiation dose reduction, the following was used: automated exposure control, adjustment of mA and/or kV according to patient size. COMPARISON: [facility], CT, CT ABDOMEN PELVIS W CON, 07/14/2025, 9:08. FINDINGS: Image quality: Diagnostic. Lower Chest: Left basilar atelectasis is seen. Heart size is normal, no pericardial effusion. ABDOMEN: Liver: No solid mass. Hepatomegaly and hepatic steatosis is again seen. Gallbladder: No radiopaque gallstones or wall thickening. Biliary ducts: No biliary dilation. Pancreas: No ductal dilation. Spleen: Size is within normal limits. Adrenal Glands: No adrenal nodules. Kidneys and Ureters: Nonobstructing left renal calculi are again seen. Simple appearing bilateral renal cysts are also noted. No hydronephrosis. No solid mass. No complex renal cystic lesion which requires follow up. Stomach and Bowel: There is moderate to severe fecal stasis in the colon. Wall thickening and pericolonic fat stranding involving descending colon is seen on the current study concerning for colitis. No abscess collection. No extra luminal air to suggest perforation. Normal appendix. Peritoneum: No abnormal intraperitoneal fluid. No free air. Ventral Wall: No significant ventral hernia. Abdominal Nodes: No retroperitoneal or mesenteric adenopathy by size criteria. Vessels: Aorta and inferior vena cava are normal in size. PELVIS: Pelvic Organs: Unremarkable. Bladder: No bladder wall thickening, accounting for underdistention. Pelvic Nodes: No enlarged lymph nodes. Miscellaneous: No inguinal hernias are seen. Bones: No aggressive osseous abnormality. IMPRESSION: 1. Finding is suggestive of predominantly left-sided colitis on the current study. No abscess collection. No perforation. No peritoneal free fluid or free air. 2. Moderate constipation. Normal appendix. No other area of abnormal bowel wall thickening. 3. Other findings are unchanged from prior study. Dictated by: Juice Hankins M.D. on 07/25/2025 at 14:46 Approved by: Juice Hankins M.D. on 07/25/2025 at 14:49 [facility] Narrative Medical decision making narrative: 55-year-old gentleman with a past medical history of cold agglutinin hemolyitc anemia, type 2 diabetes on metformin, LLE DVT on Eliquis, current C diff on oral vancomycin, asthma, hypertension, chronic pain on oxycodone who presents to the emergency department due to outpatient lab work with glucose greater than 600. Differential diagnosis includes but is not limited to hyperglycemia, DKA, HHS, electrolyte derangement, colitis, dehydration, etc. On exam the patient is in no acute distress, nontoxic appearing, initial blood pressure 124/58, heart rate 105, 17 RR, 98 F temperature, 98% on room air. Patient is here for outpatient labs with glucose greater than 600. He is currently being treated with oral vancomycin for C diff after being discharged from [facility] 6 days ago for colitis/sepsis. Patient reports that he has had persistent abdominal cramping and diarrhea since discharge, he feels he was doing better with Flagyl in the hospital. He denies chest pain, shortness of breath, dysuria or significant vomiting. We will treat with sepsis fluids, obtain blood cultures, lab work, CT abdomen pelvis, treat with home pain medicine and Flexeril as requested. Labs reveal pH 7.42, bicarb 28. Elevated WBC count 15.0 which are improved from 1 week ago. Hemoglobin 10.9. Sodium 127, potassium 5.5, BUN 39 creatinine 0.83. Glucose 678. Normal lactate 1.3, magnesium low 1.1 which was repleted. Slight elevation in alkaline phosphatase 192. Negative procalcitonin 0.261. Slight elevation ketones 0.35. CT reveals left-sided colitis, no abscess perforation or free air. Moderate constipation. Patient's colitis was previously on right/transverse colon. He has received 30 mL/kilogram LR, home oxycodone and Flexeril in addition to 2 g of IV magnesium. Repeat blood glucose is > 500. Case was discussed with Dr. Staples ED physician, we will discuss with the hospitalist as patient may require admission for persistent colitis, acute hyperglycemia in the setting of diarrhea, current treatment with vancomycin for C diff. 5 units subQ insulin ordered as well. I spoke with the hospitalist, Dr. Kerr, who graciously accepts the patient for admission to the hospital. Patient is aware and agreeable to admission at this time he is stable for transfer to the floor. <Valeria Hunter, DO - Last Filed: 07/25/25 16:39> Lab Data Labs: Lab Results 07/25/25 07/25/25 07/25/25 Range/Units 13:35 13:48 14:54 WBC 15.0 H (4.5-11.0) X10^3/uL RBC 3.95 L (4.5-5.9) X10^6/uL Hgb 10.9 L (13.5-17.5) g/dL Hct 34.2 L (41-53) % MCV 86.4 (80-100) fL MCH 27.6 (26-34) PG MCHC 31.9 (30-36) % RDW 16.7 H (11.6-14.8) % Plt Count 499 H (150-400) X10^3/uL Neut % (Auto) 89.4 H (50-75) % Lymph % (Auto) 6.8 L (25-40) % [place] % (Auto) 2.7 L (3-14) % Eos % (Auto) 0.2 L (2-4) % Baso % (Auto) 0.9 (0-2) % Neut # (Auto) 69411 H (3448-6879) /uL Lymph # (Auto) 1000 L (4913-3499) /uL [place] # (Auto) 400 (0-900) /uL Eos # (Auto) 0 (0-450) /uL Baso # (Auto) 100 (0-100) /uL RBC Morphology See below Anisocytosis 1+ H VBG pH 7.42 (7.33-7.43) VBG pCO2 42.8 L (45-50) mmHg VBG pO2 46 H (35-45) mmHg VBG HCO3 28 (24-28) mmol/L VBG Total CO2 26 (24-29) mmol/L VBG O2 Saturation 82 H (70-75) % VBG Base Excess 2.6 (0-4) mmol/L FiO2 % 21.0 % % Sodium 127 L (137-145) mmol/L Potassium 5.5 H (3.4-5.1) mmol/L Chloride 91 L (98-107) mmol/L Carbon Dioxide 26 (22-32) mmol/L BUN 39 H (9-20) mg/dL Creatinine 0.83 (0.66-1.25) mg/dL Estimated GFR > 60 (>60) mL/min BUN/Creatinine Ratio 47.0 H (6-22) Glucose 678 H* (70-99) mg/dL POC Whole Bld Glucose (70-99) mg/dL Lactate 1.3 (0.7-2.1) mmol/L Calcium 8.8 (8.4-10.2) mg/dL Magnesium 1.1 L (1.6-2.3) mg/dL Total Bilirubin 0.2 (0.2-1.3) mg/dL AST 21 (17-59) IU/L ALT 18 (<50) IU/L Alkaline Phosphatase 192 H (38-126) U/L Total Protein 6.8 (6.3-8.2) g/dL Albumin 4.0 (3.5-5.0) g/dL Globulin 2.8 (1.7-4.1) g/dL Albumin/Globulin Ratio 1.4 (1.0-2.8) Procalcitonin 0.261 (<0.5) ng/mL Ketones 0.35 H (<0.27) mmol/L 07/25/25 Range/Units 16:00 WBC (4.5-11.0) X10^3/uL RBC (4.5-5.9) X10^6/uL Hgb (13.5-17.5) g/dL Hct (41-53) % MCV (80-100) fL MCH (26-34) PG MCHC (30-36) % RDW (11.6-14.8) % Plt Count (150-400) X10^3/uL Neut % (Auto) (50-75) % Lymph % (Auto) (25-40) % [place] % (Auto) (3-14) % Eos % (Auto) (2-4) % Baso % (Auto) (0-2) % Neut # (Auto) (6194-6973) /uL Lymph # (Auto) (2768-1024) /uL [place] # (Auto) (0-900) /uL Eos # (Auto) (0-450) /uL Baso # (Auto) (0-100) /uL RBC Morphology Anisocytosis VBG pH (7.33-7.43) VBG pCO2 (45-50) mmHg VBG pO2 (35-45) mmHg VBG HCO3 (24-28) mmol/L VBG Total CO2 (24-29) mmol/L VBG O2 Saturation (70-75) % VBG Base Excess (0-4) mmol/L FiO2 % % Sodium (137-145) mmol/L Potassium (3.4-5.1) mmol/L Chloride (98-107) mmol/L Carbon Dioxide (22-32) mmol/L BUN (9-20) mg/dL Creatinine (0.66-1.25) mg/dL Estimated GFR (>60) mL/min BUN/Creatinine Ratio (6-22) Glucose (70-99) mg/dL POC Whole Bld Glucose > 500 H* (70-99) mg/dL Lactate (0.7-2.1) mmol/L Calcium (8.4-10.2) mg/dL Magnesium (1.6-2.3) mg/dL Total Bilirubin (0.2-1.3) mg/dL AST (17-59) IU/L ALT (<50) IU/L Alkaline Phosphatase (38-126) U/L Total Protein (6.3-8.2) g/dL Albumin (3.5-5.0) g/dL Globulin (1.7-4.1) g/dL Albumin/Globulin Ratio (1.0-2.8) Procalcitonin (<0.5) ng/mL Ketones (<0.27) mmol/L Urine Dip Bedside Urine Glucose 1000 mg/dl Bedside Urine Bilirubin - Negative Bedside Urine Ketone - Negative Urine Specific [place] 1.005 Bedside Urine Occult Blood - Negative Bedside Urine pH 6.5 Bedside Urine Protein - Negative Bedside Urine Urobilinogen - Negative Bedside Urine Nitrite - Negative Bedside Urine Leukocytes - Negative Esterase Point of care testing: Urine Dip Bedside Urine Glucose 1000 mg/dl Bedside Urine Bilirubin - Negative Bedside Urine Ketone - Negative Urine Specific [place] 1.005 Bedside Urine Occult Blood - Negative Bedside Urine pH 6.5 Bedside Urine Protein - Negative Bedside Urine Urobilinogen - Negative Bedside Urine Nitrite - Negative Bedside Urine Leukocytes - Negative Esterase Discharge Plan Departure Patient Disposition: Admitted As Inpatient Clinical Impression: Acute hyperglycemia, C. difficile colitis Diarrhea Qualifiers: Diarrhea type: infectious Qualified Code(s): A09 - Infectious gastroenteritis and colitis, unspecified Admit Date/Time: 07/25/25 16:20 Admit Provider: Tanner Kerr ED Sign-out <Valeria Hunter DO - Last Filed: 07/25/25 16:39> Cosign ED Attending Cosignature Attestation: I was immediately available in the department for consultation. Patient workup reviewed. Patient hyperglycemia, no DKA but minimal improvement after fluids and insulin. Persistent colitis with known C diff. Replaced magnesium. Patient had home pain medications. Plan for admission, Dr. Kerr accepts for inpatient.
[2025-07-25 14:52] LABS: Procalcitonin 0.261 ng/mL (<0.5)
[2025-07-25 14:59] LABS: Ketones (Beta-Hydroxybutyrate) 0.35 mmol/L (<0.27)
[2025-07-25 15:12] LABS: Lactate (Lactic Acid) 1.3 mmol/L (0.7-2.1)
[2025-07-25] MEDS: INSULIN REGULAR 100 UNIT/ML 3 ML VIAL SUBCUT (16:21)
--- NOTE | 2025-07-25 17:09 | PM.HP.1 ---
History of Present Illness History of Present Illness Date Patient Seen: 07/25/25 Time Patient Seen: 18:15 Chief complaint: sent from PCP blood sugar over 600. Narrative: The patient was a 55-year-old male who presents with hyperglycemia in context of recent multiple admissions and being treated actively for C diff toxin colitis. 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 He had a 2nd admission to [facility] for about 4 days for C diff toxin colitis. The patient remains on oral vancomycin in his having slow improvement of his stools but is still having intermittent diarrhea. He denies abdominal pain, or fevers. Also does have a sacral injury which relates he was 1st admission. He was being followed at the [facility] for this. The patient was found to have glucose of over 500 today and sent to the ER. He notes that he usually takes Mounjaro and metformin but has only been on metformin since his recent hospitalization. He also notes that he was receiving 26 units of Lantus in the hospital setting and was having hypoglycemia. He describes erratic glucose measurements which were either very high or low. He does not usually take insulin, and has not been taking it recently. He was had polyuria. It sounds as though maybe has not been measuring his glucose that much at home. No fevers, chills. He does have fatigue, and anorexia. No nausea, or vomiting. [facility] Medical History Cold agglutinin disease C. 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 Iron deficiency anemia Chronic pain syndrome Cervical stenosis of spinal canal Hypertension Hyperlipidemia Varicose vein of leg Myocarditis Surgical History No pertinent past surgical history Social History marital status: unmarried,single household members: significant other lives independently: Yes occupational status: disabled alcohol intake: never substance use type: does not use Meds Home Medications and Allergies Home Medications ?Medication ?Instructions ?Recorded ?Confirmed ?Type epinephrine 0.3 mg/0.3 mL 0.3 mg (0.3 mL) IM SEE 07/17/19 07/19/25 Rx injection, auto-injector (EpiPen INSTRUCTIONS #2 ea 2-Nura) spironolactone 25 mg tablet 25 mg PO BID 12/28/23 07/19/25 History furosemide 40 mg tablet See Rx Instructions .Route 06/10/24 07/19/25 History .COMPLEX PRN Swelling albuterol sulfate 90 mcg/actuation See Rx Instructions .Route 01/31/25 07/19/25 Rx aerosol inhaler .COMPLEX #8.5 grams ferrous gluconate 324 mg (37.5 mg 324 mg PO DAILY #90 tabs 01/31/25 07/19/25 Rx iron) tablet finasteride 5 mg tablet 5 mg PO DAILY #90 tabs 01/31/25 07/19/25 Rx losartan 100 mg tablet 100 mg PO DAILY #90 tabs 01/31/25 07/19/25 Rx cyclobenzaprine 10 mg tablet 10 mg PO TID PRN muscle spasm #180 02/01/25 07/19/25 Rx tabs gabapentin 600 mg tablet 1,200 mg (2 x 600 mg) PO TID #240 02/27/25 07/19/25 Rx tabs lidocaine 5 % topical patch 1 patch topical DAILY #30 ea 02/27/25 07/19/25 Rx (Lidoderm) amlodipine 10 mg tablet 10 mg PO DAILY #90 tabs 05/07/25 07/19/25 Rx mometasone-formoterol HFA 200 See Rx Instructions .Route 05/07/25 07/19/25 Rx mcg-5 mcg/actuation aerosol .COMPLEX #13 grams inhaler (Dulera) nicotine 14 mg/24 hr daily 1 patch transdermal DAILY #28 ea 05/16/25 07/24/25 Rx transdermal patch trazodone 150 mg tablet 150 mg PO BEDTIME PRN insomnia #30 05/16/25 07/24/25 Rx tabs beclomethasone dipropionate 80 See Rx Instructions .Route .COMPLEX 05/18/25 07/19/25 History mcg/actuation HFA breath activated aerosol (Qvar RediHaler) tiotropium bromide 18 mcg capsule See Rx Instructions .Route .COMPLEX 05/18/25 07/19/25 History with inhalation device (Spiriva with HandiHaler) dapagliflozin propanediol 10 mg 10 mg PO DAILY 06/14/25 07/19/25 History tablet famotidine 20 mg tablet 20 mg PO BID 06/14/25 07/19/25 History apixaban 5 mg tablet (Eliquis) 5 mg PO BID #180 tabs 06/19/25 07/19/25 Rx venlafaxine 75 mg tablet,extended See Rx Instructions .Route 06/27/25 07/24/25 Rx release 24 hr .COMPLEX #90 tabs metformin 500 mg tablet See Rx Instructions .Route .COMPLEX 07/02/25 07/19/25 History prednisone 10 mg tablet 10 mg PO DAILY 07/02/25 07/19/25 History tirzepatide 10 mg/0.5 mL 10 mg (0.5 mL) SUBCUT QWEEK #2 mL 07/02/25 07/19/25 Rx subcutaneous pen injector (Mounjaro) levofloxacin 750 mg tablet 750 mg PO DAILY #7 tabs 07/03/25 07/19/25 Rx buprenorphine 2 mg-naloxone 0.5 mg See Rx Instructions buccal 07/05/25 07/19/25 Rx sublingual film (Suboxone) .COMPLEX #30 ea vancomycin 125 mg capsule 125 mg PO QID 07/19/25 07/19/25 History diazepam 2 mg tablet 4 mg (2 x 2 mg) PO BEDTIME PRN 07/20/25 07/24/25 Rx sleep #60 tabs oxycodone-acetaminophen 10 mg-325 See Rx Instructions PO .COMPLEX 07/23/25 Rx mg tablet (Percocet) PRN pain #120 tabs Allergies Allergy/AdvReac Type Severity Reaction Status Date / Time clindamycin Allergy Intermediate Verified 07/25/25 13:32 cephalexin (CEPHALEXIN) Allergy Mild FACIAL Verified 07/25/25 13:32 SWELLING terbinafine (TERBINAFINE) Allergy Unknown Unknown Verified 07/25/25 13:32 nut - unspecified Allergy Anaphylaxis Verified 07/25/25 13:32 [facility] AdvReac Severe SOB Verified 07/25/25 13:32 Penicillins (PENICILLINS) AdvReac Severe Facial/mouth Verified 07/25/25 13:32 numbness, mouth/lip swelling Cephalosporins AdvReac Intermediate Vomiting Verified 07/25/25 13:32 (CEPHALOSPORINS) Beta-Blockers AdvReac Mild ASTHMA Verified 07/25/25 13:32 (Beta-Adrenergic Bloc doxycycline (DOXYCYCLINE) AdvReac Mild HIVES Verified 07/25/25 13:32 nadolol (NADOLOL) AdvReac Mild AGGREVATES Verified 07/25/25 13:32 ASTHMA semaglutide (From Ozempic) AdvReac Mild CONSTIPATIO Verified 07/25/25 13:32 N Sulfa (Sulfonamide AdvReac Mild VOMITING Verified 07/25/25 13:32 Antibiotics) (SULFA (SULFONAMIDE ANTIBIOTICS)) Review of Systems Review of Systems Narrative: All else reviewed and otherwise unremarkable except as noted in the history and physical. Exam Vital Signs (past 8 hours): - 07/25/25 13:32 07/25/25 15:00 07/25/25 16:00 Temperature 98 F Pulse Rate 105 H 101 H 96 H Respiratory Rate 17 18 Blood Pressure 124/58 L 140/72 113/86 Pulse Oximetry 98 95 96 Oxygen Delivery Method Room Air Room Air Oxygen Delivery Method Room Air Narrative Exam Narrative: NAD, alert and oriented, fluent speech, calm. Normocephalic skull, EOMI, anicteric sclera, symmetric pupils. Oropharynx unremarkable, no droop. Neck supple, midline trachea, no adenopathy. Lungs clear, normal rate and effort. Heart regular, no murmur gallop or rub. Abdomen is soft, non distended and non tender. Extremities: 1-2+ edema. Skin is free of rash or lesions. Joints are not swollen or deformed. Judgment appears to be normal. Objective Imaging CT scan - chest: Radiologist's impression: No evidence of pulmonary emboli, aortic dissection or aneurysm. Left lower lobe platelike atelectasis or scarring does have a slightly nodular appearance. Consider six-month follow-up CT scan - abdomen: Radiologist's impression: 1. Finding is suggestive of predominantly left-sided colitis on the current study. No abscess collection. No perforation. No peritoneal free fluid or free air. 2. Moderate constipation. Normal appendix. No other area of abnormal bowel wall thickening. 3. Other findings are unchanged from prior study. Labs 07/25/25 13:35 07/25/25 13:35 Labs: Laboratory Results - last 24 hr 07/25/25 07/25/25 07/25/25 13:35 13:48 14:54 WBC 15.0 H RBC 3.95 L Hgb 10.9 L Hct 34.2 L MCV 86.4 MCH 27.6 MCHC 31.9 RDW 16.7 H Plt Count 499 H Neut % (Auto) 89.4 H Lymph % (Auto) 6.8 L Saline % (Auto) 2.7 L Eos % (Auto) 0.2 L Baso % (Auto) 0.9 Neut # (Auto) 20037 H Lymph # (Auto) 1000 L Saline # (Auto) 400 Eos # (Auto) 0 Baso # (Auto) 100 RBC Morphology See below Anisocytosis 1+ H VBG pH 7.42 VBG pCO2 42.8 L VBG pO2 46 H VBG HCO3 28 VBG Total CO2 26 VBG O2 Saturation 82 H VBG Base Excess 2.6 FiO2 % 21.0 % Sodium 127 L Potassium 5.5 H Chloride 91 L Carbon Dioxide 26 BUN 39 H Creatinine 0.83 Estimated GFR > 60 BUN/Creatinine Ratio 47.0 H Glucose 678 H* POC Whole Bld Glucose Lactate 1.3 Calcium 8.8 Magnesium 1.1 L Total Bilirubin 0.2 AST 21 ALT 18 Alkaline Phosphatase 192 H Total Protein 6.8 Albumin 4.0 Globulin 2.8 Albumin/Globulin Ratio 1.4 Procalcitonin 0.261 Ketones 0.35 H 07/25/25 16:00 WBC RBC Hgb Hct MCV MCH MCHC RDW Plt Count Neut % (Auto) Lymph % (Auto) Saline % (Auto) Eos % (Auto) Baso % (Auto) Neut # (Auto) Lymph # (Auto) Saline # (Auto) Eos # (Auto) Baso # (Auto) RBC Morphology Anisocytosis VBG pH VBG pCO2 VBG pO2 VBG HCO3 VBG Total CO2 VBG O2 Saturation VBG Base Excess FiO2 % Sodium Potassium Chloride Carbon Dioxide BUN Creatinine Estimated GFR BUN/Creatinine Ratio Glucose POC Whole Bld Glucose > 500 H* Lactate Calcium Magnesium Total Bilirubin AST ALT Alkaline Phosphatase Total Protein Albumin Globulin Albumin/Globulin Ratio Procalcitonin Ketones Assessment & Plan Assessment & Plan narrative: 1. Hyperglycemia, active. 2. Volume depletion, active. 3. C diff toxin colitis, active. 4. Hypovolemic hyponatremia, active. 5. Hyperkalemia, active. 6. Cold agglutinin disease, stable. 7. Chronic pain syndrome, active. 8. EMA, stable. 9. OCD, stable. 10. Chronic pain syndrome, active. 11. Tobacco dependence and use, active. 12. Hypertension, stable. 13. Obesity class 2, stable. 14. Hypomagnesemia. PLAN: - He was reluctant to take much insulin at a time because of his previous episodes. We will start with Lantus 15 units now and IV fluids at 1:15 a.m.. Anticipate that these 2 measures we will slowly bring the glucose down towards 300 over the next 12 hours. We will likely then given other 15 units of Lantus at 12:00 p.m.. We will use a low dose sliding scale correctional insulin in the meantime. - We will monitor sodium and potassium. - We will continue oral vancomycin. - We will monitor white count and hemoglobin. - We will continue usual medications for anxiety and OCD. - We will hold blood pressure medications overnight. - Replace magnesium. Anticipate at least 2 midnights in the hospital, supports observation status. He is full resuscitation. Time-Based Coding :: 40 min spent with patient and on the chart (including review of chart, obtaining history, exam, reviewing outside data, placing orders, documenting exam and treatment plan, and counseling patient) on 07/25. Quality MIPS - Admit I confirm the patient?s Advance Care Plan is present, Code status is documented, Surrogate decision maker is in patient?s record [If Yes, STOP here]: Yes MIPS - Meds 'Current medications' to include all prescriptions, [id number] products, herbals, cannabis/cannabidiol products, and vitamin/mineral/dietary (nutritional) supplements. I have utilized all available resources to obtain, update, or review the patient?s current medications. [If Yes, STOP here]: Yes
[2025-07-25] MEDS: SODIUM CHLORIDE 0.9% 1,000 ML 150 ML IV (18:40)
[2025-07-25] MEDS: VANCOMYCIN 125 MG CAPSULE PO (18:40)
[2025-07-25] MEDS: INSULIN GLARGINE 100 UNIT/ML 3ML PEN 15 UNIT SUBCUT (18:42)
[2025-07-25] MEDS: INSULIN LISPRO 100 UNIT/ML 3ML VIAL SUBCUT (20:38)
[2025-07-25] MEDS: APIXABAN 5 MG TABLET PO (21:31)
[2025-07-25] MEDS: FAMOTIDINE 20 MG TABLET PO (21:31)
[2025-07-25] MEDS: GABAPENTIN 600 MG TABLET 1200 MG PO (21:32)
[2025-07-26] MEDS: VANCOMYCIN 125 MG CAPSULE PO ×3 (00:12→12:41)
[2025-07-26] MEDS: SODIUM CHLORIDE 0.9% 1,000 ML 150 ML IV (00:59)
[2025-07-26 04:00] VITALS: BP 99/57; PULSE 81; RESP 18; TEMP 35.9; O2SAT 95
[2025-07-26 05:48] LABS: Add Manual Diff / Slide Review NO; Hematocrit 31.0 % (41-53); Hemoglobin 10.4 g/dL (13.5-17.5); Lymphocytes Absolute Auto 2700 /uL (1100-4500); Mean Corpuscular HGB Conc 33.5 % (30-36); Mean Corpuscular Hemoglobin 28.5 PG (26-34); Mean Corpuscular Volume 85.1 fL (80-100); Platelet Count 423 X10^3/uL (150-400)
[2025-07-26 05:55] LABS: Hemoglobin A1C% w Est Avg Glu 8.3 % (4.0-6.0)
[2025-07-26 06:19] LABS: Blood Urea Nitrogen 30 mg/dL (9-20); Calcium 9.0 mg/dL (8.4-10.2); Carbon Dioxide 30 mmol/L (22-32); Chloride 96 mmol/L (98-107); Estimated Glomerular Filt Rate > 60 mL/min (>60); Glucose 324 mg/dL (70-99); HEMOLYSIS < 15 (0-50); Potassium 4.3 mmol/L (3.4-5.1); Sodium 134 mmol/L (137-145)
[2025-07-26 06:22] LABS: Magnesium 1.6 mg/dL (1.6-2.3)
[2025-07-26 07:00] VITALS: O2SAT 99
[2025-07-26 07:50] VITALS: BP 108/59; PULSE 83; RESP 17; TEMP 36.2; O2SAT 96
[2025-07-26] MEDS: INSULIN GLARGINE 100 UNIT/ML 3ML PEN 10 UNIT SUBCUT ×2 (08:07→14:18)
[2025-07-26] MEDS: INSULIN LISPRO 100 UNIT/ML 3ML VIAL SUBCUT ×2 (08:07→12:17)
--- NOTE | 2025-07-26 09:10 | CM.DANOTE ---
Initial DCP Assessment Note. Review EMR and PT Interview. Met with patient at bedside to discuss discharge needs.PT is alert x 4 sitting up in chair. No acute distress. Patient with partner. Uses walker at times. Chronic back problems. Care givers 4 day/wk. $ hours each visit. Payor: Jerry?? PCP: ? Summary & Plan:?55y/o male arrived to ED via POV c/o abd pain and high blood sugar. Admitted INPT. Dx. C. Diff and Hyperglycemia. Plan: IVF. PO ABX. Monitor and treat glucose. Discharge Planning/Care Management CM Discharge Assessment Start: 07/25/25 16:28 Freq: Status: Active Protocol: Document 07/26/25 09:07 (Rec: 07/26/25 09:10 [email or web address]) Discharge Planning Assessment Assigned Discharge Casandra Lei RN CM Agriculture Technician Provider Dr. Esme Edwards Advance Directives? Yes Advance Directives No on File History Provided By Patient,Family Member,Medical Record Prior Living House Arrangements Household Members significant other Type of Relies on Others transporation used prior to admit Independent with ADL No 's Is patient alert and Yes oriented? Needs Assistance Bathing,Home Chores / Shopping With Comment Care givers 4 x wk. 4 hr. each day. Patient/Family Home with Home Health Preference Comment TBD Comment TBD Discharge Plan Home with Home Health Transportation Partner Arrangement Referrals Initiated None needed Additional Comment Pt anticipates possible HH Review Status In Process Please Provide Date 07/26/25 Initial DC Assessment Was Performed Next Review Type Continued Stay Review
[2025-07-26] MEDS: GABAPENTIN 600 MG TABLET 1200 MG PO (10:26)
[2025-07-26] MEDS: FAMOTIDINE 20 MG TABLET PO (10:26)
[2025-07-26] MEDS: FINASTERIDE 5 MG TABLET PO (10:27)
[2025-07-26] MEDS: APIXABAN 5 MG TABLET PO (10:27)
[2025-07-26 11:00] VITALS: BP 124/60; PULSE 71; RESP 17; TEMP 36.2; O2SAT 99
--- NOTE | 2025-07-26 13:56 | P.DS_ITS ---
History of Present Illness History of Present Illness Chief complaint: sent from PCP blood sugar over 600. Narrative: The patient was a 55-year-old male who presents with hyperglycemia in context of recent multiple admissions and being treated actively for C diff toxin colitis. 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 He had a 2nd admission to [facility] for about 4 days for C diff toxin colitis. The patient remains on oral vancomycin in his having slow improvement of his stools but is still having intermittent diarrhea. He denies abdominal pain, or fevers. Also does have a sacral injury which relates he was 1st admission. He was being followed at the [facility] for this. The patient was found to have glucose of over 500 today and sent to the ER. He notes that he usually takes Mounjaro and metformin but has only been on metformin since his recent hospitalization. He also notes that he was receiving 26 units of Lantus in the hospital setting and was having hypoglycemia. He describes erratic glucose measurements which were either very high or low. He does not usually take insulin, and has not been taking it recently. He was had polyuria. It sounds as though maybe has not been measuring his glucose that much at home. No fevers, chills. He does have fatigue, and anorexia. No nausea, or vomiting. Discharge Providers Provider Date of admission: 07/25/25 16:20 Discharge Date: 07/26/25 Primary care physician: Ricardo Victoria MD Consults: None. Discharge provider: Tanner Kerr MD Summary Hospital Course Discharge Diagnosis: 1. Hyperglycemia, improved. 2. Volume depletion, improved. 3. C diff toxin colitis, active. 4. Hypovolemic hyponatremia, improved. 5. Hyperkalemia, improved. 6. Cold agglutinin disease, stable. 7. Chronic pain syndrome, active. 8. EMA, stable. 9. OCD, stable. 10. Chronic pain syndrome, active. 11. Tobacco dependence and use, active. 12. Hypertension, stable. 13. Obesity class 2, stable. 14. Hypomagnesemia. Improved. Hospital Course: He was admitted with hyperglycemia, and hypomagnesemia as well as hypovolemic hyponatremia. He was hydrated with normal saline and initially treated with glargine. Glargine doses were held in check due to his history of recurrent hypoglycemia with Lantus 26 units at an outside hospital. He did have a reasonable improvement of glucose from 600-300. He notes his plan is to continue metformin and restart glimepiride which he would taken in the past with good control of sugars. He will also be checking his sugars more often. With regard to diarrhea, this seems improved today. Other labs were stable. He was comfortable with discharge home, glimepiride was sent to the pharmacy at 4 mg a day with 1st dose right after discharge. He was given Lantus 10 units subQ prior to discharge to continue to treat his hyperglycemia while his oral medications are restarted. He was asked to see his primary within the next several days to have his laboratories rechecked and to keep tabs as glucose it was with his home Accu-Chek. Status at Discharge Cognitive/behavioral status at discharge: oriented Functional status at discharge: independent ambulation Overall status at discharge: patient is back to baseline Time Spent with Patient Time spent: Greater than 30 minutes Exam Vital Signs (past 8 hours): - 07/26/25 07:00 07/26/25 07:50 07/26/25 11:00 Temperature 97.2 F L 97.1 F L Pulse Rate 83 71 Respiratory Rate 17 17 Blood Pressure 108/59 L 124/60 Pulse Oximetry 99 96 99 Oxygen Delivery Method Room Air Oxygen Flow Rate 0 0 0 Oxygen Delivery Method Room Air Oxygen Flow Rate 0 Narrative Exam Narrative: NAD, alert and oriented. Fluent speech. Lungs are clear, normal rate and effort. Heart is regular, no murmur gallop or rub. Abdomen is soft, non distended. Extremities are with 1-2+ edema. Objective Imaging Multiple studies:: Radiologist's impression: CT scan - chest: Radiologist's impression: No evidence of pulmonary emboli, aortic dissection or aneurysm. Left lower lobe platelike atelectasis or scarring does have a slightly nodular appearance. Consider six-month follow-up CT scan - abdomen: Radiologist's impression: 1. Finding is suggestive of predominantly left-sided colitis on the current study. No abscess collection. No perforation. No peritoneal free fluid or free air. 2. Moderate constipation. Normal appendix. No other area of abnormal bowel wall thickening. 3. Other findings are unchanged from prior study. Labs 07/26/25 04:55 07/26/25 04:55 Labs: Laboratory Results - last 24 hr 07/25/25 07/25/25 07/25/25 13:35 14:54 16:00 WBC RBC Hgb Hct MCV MCH MCHC RDW Plt Count Neut % (Auto) Lymph % (Auto) [place] % (Auto) Eos % (Auto) Baso % (Auto) Neut # (Auto) Lymph # (Auto) [place] # (Auto) Eos # (Auto) Baso # (Auto) RBC Morphology See below Anisocytosis 1+ H Sodium 127 L Potassium 5.5 H Chloride 91 L Carbon Dioxide 26 BUN 39 H Creatinine 0.83 Estimated GFR > 60 BUN/Creatinine Ratio 47.0 H Glucose 678 H* POC Whole Bld Glucose > 500 H* Hemoglobin A1c Lactate 1.3 Calcium 8.8 Magnesium 1.1 L Total Bilirubin 0.2 AST 21 ALT 18 Alkaline Phosphatase 192 H Total Protein 6.8 Albumin 4.0 Globulin 2.8 Albumin/Globulin Ratio 1.4 Procalcitonin 0.261 Ketones 0.35 H 07/25/25 07/25/25 07/26/25 17:09 19:50 04:55 WBC 10.6 RBC 3.64 L Hgb 10.4 L Hct 31.0 L MCV 85.1 MCH 28.5 MCHC 33.5 RDW 16.8 H Plt Count 423 H Neut % (Auto) 64.6 D Lymph % (Auto) 25.4 [place] % (Auto) 6.8 Eos % (Auto) 1.3 L Baso % (Auto) 1.9 Neut # (Auto) 6800 Lymph # (Auto) 2700 [place] # (Auto) 700 Eos # (Auto) 100 Baso # (Auto) 200 H RBC Morphology Anisocytosis Sodium 134 L Potassium 4.3 D Chloride 96 L Carbon Dioxide 30 BUN 30 H Creatinine 0.82 Estimated GFR > 60 BUN/Creatinine Ratio 36.6 H Glucose 324 H D POC Whole Bld Glucose > 500 H* 353 H D Hemoglobin A1c 8.3 H Lactate Calcium 9.0 Magnesium 1.6 Total Bilirubin AST ALT Alkaline Phosphatase Total Protein Albumin Globulin Albumin/Globulin Ratio Procalcitonin Ketones 07/26/25 07/26/25 07:33 10:49 WBC RBC Hgb Hct MCV MCH MCHC RDW Plt Count Neut % (Auto) Lymph % (Auto) [place] % (Auto) Eos % (Auto) Baso % (Auto) Neut # (Auto) Lymph # (Auto) [place] # (Auto) Eos # (Auto) Baso # (Auto) RBC Morphology Anisocytosis Sodium Potassium Chloride Carbon Dioxide BUN Creatinine Estimated GFR BUN/Creatinine Ratio Glucose POC Whole Bld Glucose 328 H 341 H Hemoglobin A1c Lactate Calcium Magnesium Total Bilirubin AST ALT Alkaline Phosphatase Total Protein Albumin Globulin Albumin/Globulin Ratio Procalcitonin Ketones ON LICENSE OF [facility] Medical History Cold agglutinin disease C. 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 Hyperglycemia, improved. 2. Volume depletion, improved. 3. C diff toxin colitis, active. 4. Hypovolemic hyponatremia, improved. 5. Hyperkalemia, improved. 6. Hypomagnesemia. Plan of Treatment: Discharge home aggressive hydration or like several days. He will start glimepiride 4 mg daily starting this afternoon continue his metformin which is dosed 1500 mg in the morning 1000 afternoon. He will monitor his glucose with Accu-Cheks at home have close follow up with PCP. He will continue his vancomycin until his full course is finished. This is a 10 day course. Discharge Plan Discharge Plan Patient Disposition: Home Provider Discharge Comment: Stable for discharge home, we will start glimepiride with his metformin soon as he he was discharged from the hospital. This was not on formulary here. Discharge orders & Medications Prescriptions: New glimepiride 4 mg tablet 4 mg PO DAILY Qty: 30 0RF Continued trazodone 150 mg tablet 150 mg PO BEDTIME PRN (Reason: insomnia) Qty: 30 2RF nicotine 14 mg/24 hr patch 24 hour 1 patch transdermal DAILY Qty: 28 2RF Rx Instructions: remove one hour before bedtime venlafaxine 75 mg tablet extended release 24hr See Rx Instructions .ROUTE .COMPLEX Qty: 90 2RF Rx Instructions: Take one tablet by mouth every morning for one week, then increase to two tablets by mouth every morning for one week, then increase to three tablets by mouth every morning thereafter albuterol sulfate 90 mcg/actuation HFA aerosol inhaler See Rx Instructions .ROUTE .COMPLEX Qty: 8.5 5RF Dose Instruction: inhale 2 puffs by mouth every 6 hours if needed for shortness of breath or wheezing Rx Instructions: inhale 2 puffs by mouth every 6 hours if needed for shortness of breath or wheezing ferrous gluconate 324 mg (37.5 mg iron) tablet 324 mg PO DAILY Qty: 90 3RF finasteride 5 mg tablet 5 mg PO DAILY Qty: 90 1RF Rx Instructions: take 1 tablet by mouth once daily amlodipine 10 mg tablet 10 mg PO DAILY Qty: 90 1RF Rx Instructions: take 1 tablet by mouth once daily Dulera 200-5 mcg/actuation HFA aerosol inhaler See Rx Instructions .ROUTE .COMPLEX Qty: 13 6RF Dose Instruction: inhale 2 puffs by mouth and INTO THE LUNGS twice a day Rx Instructions: inhale 2 puffs by mouth and INTO THE LUNGS twice a day Mounjaro 10 mg/0.5 mL pen injector 10 mg SUBCUT QWEEK Qty: 2 0RF Rx Instructions: take for 4 weeks then switch to 12.5mg dosage buprenorphine-naloxone [Suboxone] 2-0.5 mg film See Rx Instructions buccal .COMPLEX Qty: 30 0RF Rx Instructions: place 1/2 strip/tab under side of tongue three times daily until you see provider. Patient under close supervision of PCP, specialist, and foster care case manager diazepam 2 mg tablet 4 mg PO BEDTIME PRN (Reason: sleep) Qty: 60 1RF epinephrine [EpiPen 2-Nura] 0.3 mg/0.3 mL auto-injector 0.3 mg IM SEE INSTRUCTIONS Qty: 2 5RF spironolactone 25 mg tablet 25 mg PO BID cyclobenzaprine 10 mg tablet 10 mg PO TID PRN (Reason: muscle spasm) Qty: 180 3RF Rx Instructions: take 1 tablet by mouth three times a day if needed for SPASM(S) gabapentin 600 mg tablet 1,200 mg PO TID Qty: 240 3RF lidocaine [Lidoderm] 5 % adhesive patch,medicated 1 patch topical DAILY Qty: 30 2RF Rx Instructions: leave on most painful area for up to 12 hrs vancomycin 125 mg capsule 125 mg PO QID famotidine 20 mg tablet 20 mg PO BID dapagliflozin propanediol 10 mg tablet 10 mg PO DAILY Eliquis 5 mg tablet 5 mg PO BID Qty: 180 0RF oxycodone-acetaminophen [Percocet] 10-325 mg tablet 4 tab PO Q6H PRN (Reason: pain) Rx Instructions: take 2 tablets by mouth every 6 hours if needed for pain losartan 100 mg tablet 50 mg PO DAILY naloxone 4 mg/actuation spray,non-aerosol intranasal furosemide 40 mg tablet See Rx Instructions .ROUTE .COMPLEX PRN (Reason: Swelling) Rx Instructions: 1-2 tabs as needed for swelling tiotropium bromide [Spiriva with HandiHaler] 18 mcg capsule, w/inhalation device See Rx Instructions .ROUTE .COMPLEX Rx Instructions: inhale THE contents of 1 capsule in THE HANDIHALER once daily x2 puffs am and x2 puffs hs Qvar RediHaler 80 mcg/actuation HFA aerosol breath activated See Rx Instructions .ROUTE .COMPLEX Rx Instructions: inhale 2 puff by mouth every 12 hours metformin 500 mg tablet See Rx Instructions .ROUTE .COMPLEX Patient Comments: three tablets in the a.m. Rx Instructions: take 2 tablets by mouth 1700 prednisone 10 mg tablet 10 mg PO DAILY Follow up/Referrals: Ricardo Victoria MD [Primary Care Provider, [facility]] Discharge Health Status Multidrug resistant organism: No MDRO Diet/Activity/Treatments Diet: Carb-consistent/Diabetic Visit Report/Discharge Packet Instructions: DI for Hyperglycemia -- Adult Stand Alone Forms: Patient Portal/API Discharge Data Primary Care Provider: Ricardo Victoria
[2025-07-26] MEDS: BUPRENORPHINE NALOXONE 1 EACH SL (14:18)
--- NOTE | 2025-07-26 14:59 | PC.NURSE ---
PIV and tele removed, pt tolerated well. VSWNL. All belongings in pharmacy and drawer returned to patient. All belongings with pt and pt partner. Provided discharge education on meds, follow up, symptoms worsening. Pt and spouse stated all questions answered. Pt escorted via WC by RUY Melgar down to [facility] to hand picker prescriptions and from there to POV.
== END 2025-07-26 15:00 | disposition home or self-care (01) ==
LOC: ED 15:10 → AC 16:30
PROVIDERS: Emergency Medicine; Admitting Provider Hospitalist; Emergency Provider Physician Assistant; Family Provider Family Medicine; PCP Family Medicine; Referring Provider Physician Assistant; Visit Provider Hospitalist
DX: E11.65 Type 2 diabetes mellitus with hyperglycemia (principal); A04.72 Enterocolitis due to Clostridium difficile, not specified as recurrent; E86.9 Volume depletion, unspecified; E87.1 Hypo-osmolality and hyponatremia; E86.1 Hypovolemia; E87.5 Hyperkalemia; D59.12 Cold autoimmune hemolytic anemia; G89.4 Chronic pain syndrome; F41.1 Generalized anxiety disorder; F42.9 Obsessive-compulsive disorder, unspecified; F17.200 Nicotine dependence, unspecified, uncomplicated; I10 Essential (primary) hypertension; E66.812 Obesity, class 2; E83.42 Hypomagnesemia; Z68.38 Body mass index [BMI] 38.0-38.9, adult; Z79.84 Long term (current) use of oral hypoglycemic drugs; Z79.85 Long-term (current) use of injectable non-insulin antidiabetic drugs; Z86.718 Personal history of other venous thrombosis and embolism; Z79.01 Long term (current) use of anticoagulants
CPT/HCPCS: 36415; 74177; 80048; 80053; 81003; 82009; 82805; 82962; 83036; 83605; 83735; 84145; 85025; 87040; 96361; 96365; 96372; 96375; 99284; G0378; A9270; J1171; J1815; J2405; J3475; J7030; J7120; Q9967

== ENCOUNTER → 2025-08-01 11:23 | Outpatient (CLI) | payer OTHER, SELFPAY ==
[2025-05-23 17:12] VITALS: PULSE 106; RESP 24; O2SAT 94
[2025-07-25 18:44] VITALS: BMI 38.0
--- OUTSIDE RECORDS SUMMARY | 2025-08-03 15:56 | XMS_ITS | Encounter Summary ---
Author Organization [facility] Address [address] [address] Care Team Providers Care Ornamental Iron Worker Apprentice Name Role Phone Unavailable Primary Care Provider Unavailabl e Encounter Details Date Type Department Care Team (Late st Contact Info) Description 10/21/2020 Scanned Document SCANNED ONLY Scanned, Document Social History Tobacco Use Types Packs/Day Years Used Date Smoking Tobacco: Every Day Cigarettes 1 38.9 Started: 09/18/1986 Smokeless Tobacco: Never Alcohol Use Standard Drinks/Week Comments Not Asked 0 (1 standard drink = 0.6 oz pur e alcohol) Sex and Gender Information Value Date Recorded Sex Assigned at Not on file Legal Sex Male 1:47 PM PDT Gender Identity Not on file Sexual Orientation Not on file documented as of this encounter Plan of Treatment Not on file documented as of this encounter Visit Diagnoses Not on filedocumented in this encounter
--- OUTSIDE RECORDS SUMMARY | 2025-08-03 15:56 | XMS_ITS | Encounter Summary ---
Author Organization [facility] Address [address] [address] Care Team Providers Care Corporate Auditor Name Role Phone Unavailable Primary Care Provider Unavailabl e Encounter Details Date Type Department Care Team (Late st Contact Info) Description 03/26/2020 Scanned Document SCANNED ONLY Scanned, Document Social History Tobacco Use Types Packs/Day Years Used Date Smoking Tobacco: Never Assessed Sex and Gender Information Value Date Recorded Sex Assigned at Not on file Legal Sex Male 1:47 PM PDT Gender Identity Not on file Sexual Orientation Not on file documented as of this encounter Plan of Treatment Not on file documented as of this encounter Visit Diagnoses Not on filedocumented in this encounter
--- OUTSIDE RECORDS SUMMARY | 2025-08-03 15:56 | XMS_ITS | Encounter Summary ---
Author Organization [facility] Address [address] [address] Care Team Providers Care Labor Standards Director Name Role Phone Unavailable Primary Care Provider Unavailabl e Encounter Details Date Type Department Care Team (Late st Contact Info) Description 12/27/2014 Scanned Document SCANNED ONLY Scanned, Document Social [...]
--- OUTSIDE RECORDS SUMMARY | 2025-08-03 15:56 | XMS_ITS | Encounter Summary ---
Author Organization [facility] Address [address] [place] [address] Care Team Providers Care Psychiatric Specialist Name Role Phone Ricardo Victoria MD Primary Care Provider [phone] Encounter Details Date Type Department Care Team (Late st Contact Info) Description 05/28/[address] [facility] Pathology HOV [address] [place] [address] Chidi Mo MD [address] [address] Social History Tobacco Use Types Packs/Day Years Used Date Smoking Tobacco: Every Day Cigarettes 0.5 20 Alcohol Use Standard Drinks/Week Comments No 0 (1 standard drink = 0.6 oz pur e alcohol) PHQ-2 Answer Date Recorded PHQ2 Total Score 1 11/26/2022 Sex and Gender Information Value Date Recorded Sex Assigned at Not on file Legal Sex Male 9:21 AM PDT Gender Identity Not on file Sexual Orientation Not on file documented as of this encounter Plan of Treatment Not on file documented as of this encounter Procedures Procedure Name Priority Date/Time Associated Diagnosis Comments EXTERNAL PATHOLOGY REVIEW Routine 05/24/2025 documented in this encounter Results * External Pathology Review (05/24/2025) Case Report Surgical Pathology Report Case: [id number] Authorizing Provider: Chidi Mo MD Collected: 05/24/2025 Ordering Location: [facility] Pathology HOV Received: 05/28/2025 07:03 AM Pathologist: Lobo Jose MD Specimen: Skin, biopsy, shave IF, Skin of right thigh 4:36 PM PDT [facility] Final Diagnosis A) Skin, right thigh, biopsy: - Negative direct immunofluorescence studies, see comment. COMMENT: Direct immunofluorescence studies are negative, arguing against an immunobullous disorder or vasculitis. 4:36 PM PDT [facility] at 1635 PDT Gross Description A. Skin, biopsy, shave IF. Received in DIF media. labeled, Bandar George; Skin of right thigh is a 0.5 cm pink soft tissue fragment entirely submitted for immunofluorescence studies. (MS) 4:36 PM PDT [facility] Immunofluorescence Report Slides Test Result A1-1 fs HE IF level 1 Adequate A1-2 IgG, frozen by IF Negative A1-3 IgA, frozen by IF Negative A1-4 IgM, frozen by IF Negative A1-5 C3, frozen by IF Negative A1-6 Fibrinogen, frozen by IF Negative All controls show appropriate reactivity. 4:36 PM PDT [facility] IHC, DANIA and IF Disclaimer Note: Some tests cited above may have been developed and their performance characteristics determined by the [facility]. They have not been cleared or approved by the U.S. Food and Drug Administration (FDA). However, the FDA has determined that such clearance or approval is not necessary. These tests are used for clinical purposes and should not be regarded as investigational or for research. The performing laboratories at [facility], [facility] or [facility] are certified under the Clinical Laboratory Improvement Amendments of 1988 (CLIA '88) as qualified to perform high complexity laboratory testing. 4:36 PM PDT [facility] Case Testing Locations Disclaimer The technical and/or professional components of this case may have been performed at any of the following laboratories. These records are maintained internally and more information is available upon request. [facility]: [address] [place] [address] [facility]: [address], [place], [address] [facility]: [address] [place] [address] 5 4:36 PM PDT [facility] Tissue HAIR-BEARING SKIN / Unknown 05/24/2025 05/28/2025 7:03 AM PDT us Chidi Mo MD LAB PATHOLOGY ORDERABLES Final Result [facility] [address] [facility] Room [place] [id number] [phone] documented in this encounter Visit Diagnoses Not on filedocumented in this encounter Additional Health Concerns Assessment Noted Time PHQ-9 Depression Total Score: 5 11/27/19 23 12:08 AM PDT documented as of this encounter Care Teams Psychiatric Specialist Relationship Specialty Start Date End Date Ricardo Victoria MD PCP - General Family Practice 07/27/22 documented as of this encounter
--- OUTSIDE RECORDS SUMMARY | 2025-08-03 15:56 | XMS_ITS | Encounter Summary ---
Author Organization [facility] Address [address] [place] [address] Care Team Providers Care Bareback Rider Name Role Phone Pcp, None Selected Primary Care Provider Unavail able Encounter Details Date Type Department Care Team (Late st Contact Info) Description 06/06/2024 Orders Only [facility] [address], [address] [address] Briana Browning MD [address] [place] [address] Social History Tobacco Use Types Packs/Day Years Used Date Smoking Tobacco: Every Day Smokeless Tobacco: Never Alcohol Use Standard Drinks/Week Comments Never 0 (1 standard drink = 0.6 oz pur e alcohol) AUDIT-C Answer Date Recorded Q1: How often do you have a drink containing alc ohol? Never 10/17/2020 Average Number of Drinks Not on file 021 Frequency of Binge Drinking Not on file 12/2020 Sex and Gender Information Value Date Recorded Sex Assigned at Not on file Legal Sex Male 4:38 PM PDT Gender Identity Not on file Sexual Orientation Not on file documented as of this encounter Functional Status documented as of this encounter Plan of Treatment Upcoming Encounters Date Type Department Care Team (Late st Contact Info) Description 10/12/2025 9:00 AM PST Office Visit [facility] [place] [address] [facility], [address] [address] Briana Browning MD [address] [place] [address] documented as of this encounter Visit Diagnoses Not on filedocumented in this encounter Care Teams Bareback Rider Relationship Specialty Start Date End Date Pcp, None Selected PCP - General 12/28/24 documented as of this encounter
--- OUTSIDE RECORDS SUMMARY | 2025-08-03 15:56 | XMS_ITS | Clinical Summary ---
Author Organization [facility] Address [facility] [address] Care Team Providers Care Oncology Rn Name Role Phone Unavailable Primary Care Provider Unavailabl e Allergies Active Allergy Reactions Criticality Noted Date Comments Doxycycline Rash Low 02/24/2017 Penicillins Anaphylaxis High 01/23/2014 Sulfa (Sulfonamide Antibiotics) Anaphylaxis,GI Upset High 02/24/2017 Medications beclomethasone dipropionate (QVAR REDIHALER) 80 mcg/actuation inhaler Inhale 2 puffs into the lungs Twice a day Active albuterol 90 mcg/actuation inhaler inhale 2 puffs by mouth every 6 hours if needed for shortness of breath or wheezing 1 Active albuterol sulfate 2.5 mg /3 mL (0.083 %) nebulizer solution inhale contents of 1 vial in nebulizer every 4 to 6 hours if needed UP TO FOUR TIMES A DAY 0 Active amLODIPine (NORVASC) 10 MG tablet Take 10 mg by mouth daily 0 Active oxyCODONE-acetami nophen (PERCOCET) 10-325 mg per tablet take 2 tablets by mouth every 4 hours if needed for pain 1 Active predniSONE (DELTASONE) 10 MG tablet Take 10 mg by mouth daily 0 Active SPIRIVA WITH HANDIHALER 18 mcg inhalation capsule inhale the contents of one capsule in the handihaler once daily 1 Active omeprazole (PRILOSEC) 40 MG capsule Take 40 mg by mouth every morning 0 Active DULERA 200-5 mcg/actuation oral inhaler 2 puffs Twice a day 1 Active metFORMIN (GLUCOPHAGE) 500 MG tablet take 2 tablets by mouth twice a day with meals 12/22/202 0 Active losartan (COZAAR) 50 MG tablet Take 50 mg by mouth daily 1 Active gabapentin (NEURONTIN) 300 MG capsule take 3 capsules by mouth three times a day 1 Active glimepiride (AMARYL) 4 MG tablet Take 8 mg by mouth Twice a day 0 Active furosemide (LASIX) 40 MG tablet take 1 to 2 tablets by mouth if needed for SWELLING 0 Active TRUEPLUS LANCETS 30 gauge misc daily 0 Active fentaNYL (DURAGESIC) 12 mcg/hr apply 1 patch topically every 72 hours -REMOVE EXISTING PATCH BEFORE REPLACING WITH NEW ONE 1 Active fluticasone propionate (FLONASE) 50 mcg/actuation nasal spray 2 sprays by Each Nare route daily 0 Active finasteride (PROSCAR) 5 mg tablet Take 5 mg by mouth daily 0 Active diazePAM (VALIUM) 5 MG tablet take 2 tablets by mouth at bedtime for 2 weeks then 1 tablet at bedtime 0 Active cyclobenzaprine (FLEXERIL) 10 MG tablet Take 10 mg by mouth 3 (three) times daily as needed 0 Active TRUE METRIX GLUCOSE TEST STRIP strip USE TO TEST BLOOD SUGAR DAILY 0 Active azelastine (ASTELIN) 137 mcg (0.1 %) nasal spray instill 1 to 2 sprays into each nostril twice a day if needed 0 Active benralizumab (FASENRA PEN) 30 mg/mL injection Inject 30 mg into the skin every 2 (two) months 4 Active nystatin (MYCOSTATIN) 100,000 unit/mL oral suspension Swish and spit 500,000 Units every 6 (six) hours while awake Active semaglutide (OZEMPIC) 0.25 mg or 0.5 mg(2 mg/1.5 mL) injection pen Inject 0.25 mg into the skin every 7 days Active Active Problems Problem Noted Date Diagnosed Date Chronic, continuous use of opioids 08/14/2024 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 No history of hospitalization but multiple ER visits from 2007-. Has morbid obesity. Smoking 1ppd. Regimen: Dulera, spiriva, Qvar, prednisone 10. Aero and food allergen skin testing negative 2014 at [facility]. Immunocaps equivocal to some nuts 2014 Assessment & Plan (10/11/2020 10:21 AM PST): Relevant Hx: Reports asthma started in 2007. No history of hospitalization but multiple ER visits from 2007-. Has morbid obesity. Smoking 1ppd. Regimen: Dulera, spiriva, Qvar, prednisone 10. Allergy to tree nuts 10/11/2020 Morbid obesity 01/23/2014 Immunizations Immunization Administration Dates Next Due Flu 06/01/2016,06/18/2015,06/23/2012 Influenza quad (PF) 05/23/2019, 8,06/01/2017,2013 Influenza quad cell culture (PF) MDCK (4 years +) 06/28/2020 Influenza trivalent with pre servative (6 months and up) 06/18/2013,05/23/2009 PneumoPPV 03/30/2016 Tdap 06/23/2012 Family History Medical History Relation Comments Asthma Father Asthma Mother Relation Status Comments Father Mother Social History Tobacco Use Types Packs/Day Years [...] on file Sexual Orientation Not on file Last Filed Vital Signs Vital Sign Reading Time Taken Comments Blood Pressure 148/82 08/14/2024 10:25 AM PST Pulse 86 08/14/2024 10:25 AM PST Temperature 36.5 C (97.7 F) 08/14/2024 10:25 AM PST Respiratory Rate 18 08/14/2024 10:25 AM PST Oxygen Saturation 99% 08/14/2024 10:25 AM PST Inhaled Oxygen Concentration - - Weight 138.3 kg (305 lb) 08/14/2024 10:25 AM PST Height 177.8 cm (5' 10) 10/08/2020 4:07 PM PST Body Mass Index 43.76 10/08/2020 4:07 PM PST Plan of Treatment Health Maintenance Due Date Last Done Comments CT Colonography 1970 Colonoscopy 1970 Colorectal Cancer Screening 1970 Disability Screening 1970 FIT-DNA (COLOGUARD) 1970 Hepatitis C Screening 1970 Sigmoidoscopy 1970 HIV Screening 1985 Lipid Panel (Cholesterol Screening) 1988 FIT (FOBT) 2015 Pneumococcal 50+ Years (2 of 2 - PCV) 03/30/2017 03/30/2016 Lung Cancer Screening 2020 RSV Vaccines (1 - Risk 50-74 years 1-dose series) 2020 Zoster (1 of 2) 2020 DTaP/Tdap/Td Vaccine (2 - Td or Tdap) 06/23/2022 06/23/2012 Drug, Alcohol, and Depressio n Screening 09/13/2024 SOGIE 09/13/2024 Covid-19 Vaccine (1 - 2024-2 6 season) 2025 Influenza Vaccine (#1) 2025 0, 05/23/2019, 06/30/2018, Additional history exists Insurance * Guarantor: Bandar George Account Type Relation to Patient Date of Phone Billing Address Personal/Family Self 1970 [address] [place] [address] [employer]
--- OUTSIDE RECORDS SUMMARY | 2025-08-03 15:56 | XMS_ITS | Encounter Summary ---
Author Organization [facility]erg[facility] with [facility] Address [address] [place] [address] Care Team Providers Care Head Of Cytogenetics Name Role Phone Pcp, None Selected Primary Care Provider Unavail able Encounter Details Date Type Department Care Team ([facility] Contact Info) Description 07/04/2024 Abstract [facility] Health Information Management [address] [place] [phone] [facility] Part Time, Provider, Social History Tobacco Use Types Packs/Day Years [...] Upcoming Encounters Date Type Department Care Team ([facility] Contact Info) Description 10/12/2025 9:00 AM PST Office Visit [facility] [place] [address] [facility] [place], [place] [phone] Briana Browning MD [address] [place] [address] documented as of this encounter Procedures Procedure Name Priority Date/Time Associated Diagnosis Comments HEMOGLOBIN A1C Routine 12/23/2023 documented in this encounter Results * Hemoglobin A1c (12/23/2023) External Hemoglobin A1c 6.5 % Comment:See 06/06/24 [facility] Lab Results Blood Venous blood / Unknown us Ordering Provider LAB BLOOD ORDERABLES Final Res ult documented in this encounter Visit Diagnoses Not on filedocumented in this encounter Care Teams Head Of Cytogenetics Relationship Specialty Start Date End Date Pcp, None Selected PCP - General 12/28/24 documented as of this encounter
--- OUTSIDE RECORDS SUMMARY | 2025-08-03 15:56 | XMS_ITS | Encounter Summary ---
Author Organization [facility] Address [address] [place] [address] Care Team Providers Care Kettle Fry Cook Operator Name Role Phone Pcp, None Selected Primary Care Provider Unavail able Encounter Details Date Type Department Care Team ([facility] Contact Info) Description 01/24/2025 Abstract [facility] Health Information Management [address] [place] [phone] [facility] Psychology Intern, Provider, Social History Tobacco Use Types Packs/Day [...] Upcoming Encounters Date Type Department Care Team ([facility] Contact Info) Description 10/12/2025 9:00 AM PST Office Visit [facility] [place] [address] [facility] [place], [place] [phone] Briana Browning MD [address] [place] [address] documented as of this encounter Procedures Procedure Name Priority Date/Time Associated Diagnosis Comments HEMOGLOBIN A1C Routine 12/27/2024 documented in this encounter Results * Hemoglobin A1c (12/27/2024) External Hemoglobin A1c 7.9 % Blood Venous blood / Unknown us Ordering Provider LAB BLOOD ORDERABLES Final Res ult documented in this encounter Visit Diagnoses Not on filedocumented in this encounter Care Teams Kettle Fry Cook Operator Relationship Specialty Start Date End Date Pcp, None Selected PCP - General 12/28/24 documented as of this encounter
--- OUTSIDE RECORDS SUMMARY | 2025-08-03 15:56 | XMS_ITS | Clinical Summary ---
Author Organization [facility] Address [address] [place] [address] Care Team Providers Care Water Taxi Captain Name Role Phone Pcp, None Selected Primary Care Provider Unavail able Allergies Active Allergy Reactions Criticality Noted Date Comments Doxycycline Rash Low 02/24/2017 Penicillin G 10/31/2009 Sulfa (Sulfonamide Antibiotics) GI intolerance 02/24/2017 Medications albuterol HFA (ProAir) 90 mcg/actuation inhaler every 4 (four) hours as needed 1 Active amLODIPine (NORVASC) 10 mg tablet Take 1 tablet (10 mg total) by mouth once daily 0 Active atorvastatin (LIPITOR) 80 mg tablet Take 1 tablet (80 mg total) by mouth nightly 0 Active Qvar RediHaler 80 mcg/actuation HFA aerosol breath activated inhale 1 puff by mouth every 12 hours 1 Active cyclobenzaprine (FLEXERIL) 10 mg tablet take 1 tablet by mouth three times a day if needed 0 Active diazePAM (VALIUM) 5 mg tablet 1 tablet (5 mg total) daily 0 Active EPINEPHrine (EPIPEN) 0.3 mg/0.3 mL injection syringe 1 Active fentaNYL (DURAGESIC) 12 mcg/hr q96h 1 Active furosemide (LASIX) 40 mg tablet take 1 to 2 tablets by mouth if needed for SWELLING 0 Active gabapentin (NEURONTIN) 300 mg capsule take 3 capsules by mouth three times a day 1 Active glimepiride (AMARYL) 4 mg tablet Take 1 tablet (4 mg total) by mouth 2 (two) times a day 0 Active TRUEplus Lancets 30 gauge misc 1 Active losartan (COZAAR) 50 mg tablet Take 2 tablets (100 mg total) by mouth once daily 1 Active metFORMIN (GLUCOPHAGE) 500 mg tablet take 2 tablets by mouth twice a day with meals 0 Active Dulera 200-5 mcg/actuation inhaler Inhale 2 puffs 2 (two) times a day 1 Active oxyCODONE (ROXICODONE) 20 mg tablet Take 1 tablet (20 mg total) by mouth once daily 1 Active oxyCODONE-aceta minophen (PERCOCET) 10-325 mg 1 Active Spiriva with HandiHaler 18 mcg inhale the contents of one capsule in the handihaler once daily 1 Active predniSONE (DELTASONE) 10 mg tablet Take 1 tablet (10 mg total) by mouth 0 Active omeprazole (PriLOSEC) 40 mg capsule Take 1 capsule (40 mg total) by mouth 0 Active azelastine (ASTELIN) 137 mcg (0.1 %) nasal spray instill 1 to 2 sprays into each nostril twice a day if needed 0 Active blood sugar diagnostic strip USE TO TEST BLOOD SUGAR DAILY 0 Active finasteride (PROSCAR) 5 mg tablet Take 1 tablet (5 mg total) by mouth 0 Active fluticasone propionate (FLONASE) 50 mcg/actuation nasal spray Administer 2 sprays into affected nostril(s) 0 Active liraglutide (VICTOZA) 0.6 mg/0.1 mL (18 mg/3 mL) injection Start with 0.6mg subcutaneous a day for 2 weeks, followed by 1.2mg until next appointment. 6 mL 3 1 Active Fasenra Pen 30 mg/mL auto-injector 4 Active spironolactone (ALDACTONE) 25 mg tabletIndicatio ns:Type 2 diabetes mellitus without complication, without long-term current use of insulin (CMS/HCC),Essen tial hypertension,Pr oteinuria, unspecified type Take 2 tablets (50 mg total) by mouth nightly 180 tablet 3 5 04/13/20 26 Active dapagliflozin propanediol (Farxiga) 10 mg tabletIndicatio ns:Essential hypertension,Pr oteinuria, unspecified type,Type 2 diabetes mellitus without complication, without long-term current use of insulin ([facility]) Take 10 mg by mouth daily 90 tablet 3 5 06/19/20 26 Active Active Problems No known active problems Encounters Date Type Department Care Team Description 07/17/2025 Telephone [facility] [address], [address] [place] [phone] Briana Browning MD Appointment 06/19/2025 Refill [facility] [address], [address] [phone] Briana Browning MD Essential hypertension; Proteinuria, unspecified type; Type 2 diabetes mellitus without complication, without long-term current use of insulin ([facility]) 06/19/2025 Telephone [facility] [address], [address] [phone] Briana Browning MD Med Refill from Last 3 Months Social History Tobacco Use Types Packs/Day Years [...] Sign Reading Time Taken Comments Blood Pressure 129/78 01/16/2025 8:25 AM PDT Pulse 93 01/16/2025 8:25 AM PDT Temperature 36.8 C (98.2 F) 10/16/2015 10:04 AM PST Respiratory Rate - - Oxygen Saturation 99% 01/16/2025 8:25 AM PDT Inhaled Oxygen Concentration - - Weight 148 kg (326 lb) 06/08/2023 2:32 PM PDT Height 177.8 cm (5' 10) 10/17/2020 3:41 PM PST Body Mass Index 46.78 10/17/2020 3:41 PM PST Plan of Treatment Upcoming Encounters Date Type Department Care Team (Late st Contact Info) Description 10/12/2025 9:00 AM PST Office Visit [facility] [address], [address] [place] [address] Briana Browning MD [address] [place] [address] Health Maintenance Due Date Last Done Comments Diabetic Eye Exam 1970 PSA Screening Discussion 1970 MMR Vaccines (1 of 1 - Standard series) 1971 Diabetic Foot Exam 1980 Depression Screening (PHQ-2) 1982 Hepatitis B Vaccines (1 of 3 - 19+ 3-dose series) 1989 Zoster Vaccines (1 of 2) 1989 Colorectal Cancer Screening (Colonoscopy) 2015 Colorectal Cancer Screening (FOBT) 2015 Colorectal Cancer Screening (Fecal DNA) 2015 Colorectal Cancer Screening Combined 2015 HM Pneumococcal Adult 50+ (2 of 2 - PCV) 03/30/2017 03/30/2016 RSV Patients Over 60 years OR qualifying ( Patients) (1 - Risk 50-74 years 1-dose series) 2020 DTaP,Tdap,and Td Vaccines (2 - Td or Tdap) 06/23/2022 06/23/2012 COVID-19 Vaccine ( season) 2025 07/19/2024, 07/07/2023, 07/04/2022, Additional history exists Influenza Vaccine (#1) 2025 , 05/23/2023, 05/20/2021, Additional history exists Hemoglobin A1C 11/24/2025 05/27/2025, 05/14, 12/27/2024, Additional history exists Diabetes Urine Protein Screening 05/24/2026 05/24/2025 HM Pneumococcal Combined Age 0-49 Discontinued 03/30/2016 HPV Vaccines Aged Out No longer eligi ble based on patient's age to complete this topic Hepatitis A Vaccines Aged Out No long er eligible based on patient's age to complete this topic IPV Vaccines Aged Out No longer eligi ble based on patient's age to complete this topic Procedures Procedure Name Priority Date/Time Associated Diagnosis Comments HEMOGLOBIN A1C Routine 12/27/2024 from Last 3 Months or Most Recently Relevant to Health Maintenance Insurance * Guarantor: Bandar George Account Type Relation to Patient Date of Phone Billing Address Personal/Family Self 1970 [address] [place] [address] [employer] Care Teams Water Taxi Captain Relationship Specialty Start Date End Date Pcp, None Selected PCP - General 12/28/24
--- OUTSIDE RECORDS SUMMARY | 2025-08-03 15:56 | XMS_ITS | Clinical Summary ---
Author Organization [facility] gt Address [address] [place] [address] Care Team Providers Care Baggage Porter Name Role Phone Ricardo Salgado MD Primary Care Provider [phone] Allergies Active Allergy Reactions Criticality Noted Date Comments Penicillins Anaphylaxis High 01/23/2014 Medications Oxycodone-Acetam inophen 10-325 MG Oral Tab 1-2 tab q 6 hrs Ac tive FentaNYL 12 MCG/HR Transdermal PATCH 72 HR None Entered Activ e Gabapentin 300 MG Oral Cap Take 1 capsule (300 mg) by mouth 3 times a day. Active Cyclobenzaprine HCl 10 MG Oral Tab 1 TABLET 3 TIMES daily prn Active Diazepam 5 MG Oral Tab 1 TABLET 2 TIMES DAILY Active PredniSONE 10 MG Oral Tab 1/2 tab alternating with 1 tab daily Active MetFORMIN HCl 500 MG Oral Tab Take 2 tablets (1,000 mg) by mouth 2 times a day with meals. Active AmLODIPine Besylate 10 MG Oral Tab 1 tab daily Active Albuterol Sulfate (PROAIR HFA IN) 90 mcg 2 puff BID Active Beclomethasone Dipropionate (QVAR IN) None Entered Active EPINEPHrine 0.3 MG/0.3ML auto-injector 1 Active finasteride 5 MG tablet Take 1 tablet (5 mg) by mouth daily. 1 Active furosemide 40 MG tablet take 1 to 2 tablets by mouth if needed for SWELLING 0 Active glimepiride 4 MG tablet Take 2 tablets (8 mg) by mouth 2 times a day. 1 Active lisinopril 2.5 MG tablet Take 1 tablet (2.5 mg) by mouth. 0 Active mometasone-formo terol (Dulera) 200-5 MCG/ACT inhaler Inhale 2 puffs by mouth. 1 Active tiotropium 18 MCG inhalation capsule inhale the contents of one capsule in the handihaler once daily 1 Active Qvar RediHaler 80 MCG/ACT inhaler Inhale 1 puff by mouth every 12 hours. 1 Active nystatin 058743 UNIT/ML mouth/throat suspension Swish and swallow 4 times a day. Active omeprazole [address] capsule Take 1 capsule (40 mg) by mouth. Active losartan 100 MG tablet Take 1 tablet (100 mg) by mouth daily. 3 Active Active Problems Problem Noted Date Diagnosed Date Insomnia 05/11/2023 Cervicalgia 01/23/2014 Morbid obesity 01/23/2014 Lumbago syndrome PTSD (post-traumatic stress disorder) Chronic, continuous use of opioids Encounters Date Type Department Care Team Description 05/28/2025 Lab Requisition [facility] Pathology [address] [place] [address] Chidi Mo MD from Last 3 Months Family History Medical History Relation Comments Cancer Brother Alcohol Abuse Father Alcohol/Drug Father COPD Father Cancer Father Hypertension Father Lipids/Cholesterol Father Migraine Headaches Father Post Traumatic Stress Disorder Father Thyroid Disease Father No Known Problems Maternal Aunt Cancer Maternal Grandfather Coronary Artery Disease Maternal Grandmother Diabetes Maternal Grandmother Heart (other) Maternal Grandmother Osteoporosis Maternal Grandmother No Known Problems Maternal Uncle Arthritis Mother Mental Illness Mother Thyroid Disease Mother No Known Problems Paternal Aunt Alcohol Abuse Paternal Grandfather No Known Problems Paternal Uncle Relation Status Comments Brother Father Alive Maternal Aunt Alive Maternal Grandfather Maternal Grandmother Maternal Uncle Mother Alive Paternal Aunt Alive Paternal Grandfather Paternal Grandmother Paternal Uncle Sister Alive Social History Tobacco Use Types Packs/Day Years Used Date Smoking Tobacco: Every Day Cigarettes 0.5 20 Tobacco Cessation:Ready to Q uit: Yes Alcohol Use Standard Drinks/Week Comments No 0 [...] Sign Reading Time Taken Comments Blood Pressure 150/83 06/04/2021 10:45 AM PDT Pulse 110 06/04/2021 10:45 AM PDT Temperature - - Respiratory Rate - - Oxygen Saturation 96% 06/04/2021 10:45 AM PDT Inhaled Oxygen Concentration - - Weight 156.9 kg (346 lb) 06/04/2021 10:45 AM PDT Height 177.8 cm (5' 10) 06/04/2021 10:45 AM PDT Body Mass Index 49.65 06/04/2021 10:45 AM PDT Plan of Treatment Health Maintenance Due Date Last Done Comments Hepatitis C Screening 1970 Prostate Cancer Screening Education 1970 Hepatitis B Vaccine (1 of 3 - 19+ 3-dose series) 1989 Lipid Disorders Screening 2005 CT Colonography 2015 Colonoscopy 2015 Colorectal Cancer Screening 2015 FIT-DNA 2015 FOBT/FIT 2015 Sigmoidoscopy 2015 Pneumococcal Vaccine: 50+ Years (2 of 2 - PCV) 03/30/2017 03/30/2016 Zoster Vaccine (1 of 2) 2020 DTaP, Tdap and Td Vaccines (2 - Td or Tdap) 06/23/2022 06/23/2012 Depression Screening (PHQ-2) 11/27/2023 11/26/2022 COVID-19 Vaccine ( season) 2025 07/07/2023, 07/04/2022, 01/16/2022, Additional history exists Influenza Vaccine (#1) 2025 , 05/23/2019, 06/30/2018, Additional history exists RSV Vaccine (1 - 1-dose 75+ series) 2045 HIV Screening Completed 05/31/2025 HPV Vaccine Aged Out No longer eligi ble based on patient's age to complete this topic Hepatitis A Vaccine Aged Out No longe r eligible based on patient's age to complete this topic Meningococcal B Vaccine Aged Out No l onger eligible based on patient's age to complete this topic Procedures Procedure Name Priority Date/Time Associated Diagnosis Comments PREMANAGE Routine 07/26/2025 5:05 PM PST PREMANAGE Routine 07/25/2025 3:44 PM PST PREMANAGE Routine 07/19/2025 12:29 AM PST PREMANAGE Routine 07/14/2025 5:44 PM PDT PREMANAGE Routine 07/03/2025 2:00 PM PDT PREMANAGE Routine 07/02/2025 12:13 AM PDT PREMANAGE Routine 06/19/2025 4:15 AM PDT PREMANAGE Routine 06/15/2025 3:55 AM PDT PREMANAGE Routine 06/12/2025 4:27 PM PDT PREMANAGE Routine 06/08/2025 6:33 PM PDT PREMANAGE Routine 06/05/2025 6:10 PM PDT EXTERNAL PATHOLOGY REVIEW Routine 05/24/2025 PREMANAGE Routine 05/20/2025 2:52 PM PDT PREMANAGE Routine 05/18/2025 1:23 PM PDT PREMANAGE Routine 05/15/2025 10:42 PM PDT from Last 3 Months Results * PREMANAGE (07/26/2025 5:05 PM PST) Only the most recent of14 resultswithin the time period is included. 07/26/2025 5:05 PM PST Narrative [facility] - 07/25/2025 6:31 PM PST Patient has visited an external emergency department or has been hospitalized outside of [facility] --MOST RECENT VISIT-- IP Admit:07/25/25 16:20 Discharge:07/26/25 15:00 Location:[facility] Attending Provider:Santy Encounter Type:Acute Care Major Class:Inpatient Chief Complaint:sent from PCP blood sugar over 600. Diagnosis: Type 2 diabetes mellitus with hyperglycemia ED/C VISIT TRACKING (3 MO.) Visit Date Location [facility] Dx/Complaint -------- ------- ---- 07/25/2025 13:24 [facility]. [place] Emergency sent from PCP blood sugar over 600. 07/14/2025 08:46 [facility]. [place] Emergency Blood clot LT Leg/vomiting/SOB 07/01/2025 21:15 [facility] Emergency Agglutinin dz, dizzy, fatigue 06/18/2025 19:26 [facility] Emergency left leg possible infection 06/14/2025 22:52 [facility] Emergency weakness , nausea 06/07/2025 20:58 [facility]. [place] Emergency dizzy, fever 05/18/2025 10:00 [facility]. [place] Emergency Left leg red and swollen 05/15/2025 16:23 [facility]. [place] Emergency [facility] gave clindamycin yesterday has fever today INPATIENT VISIT TRACKING (1 MO.) Visit Date Location [facility] Dx/Complaint -------- ------- ---- [facility] 1. Type 2 diabetes mellitus with hyperglycemia 07/14/2025 17:20 [facility]. [place] [facility] Agglutinin dz, dizzy, fatigue ED VISIT COUNT (12 MO.) Visits Location ------ --------- 13 [facility] 13 Total Note: Visits indicate total known visits. --CARE GUIDELINES-- (Below are the most recent care guidelines entered by a Medicine care provider in [facility]. If Medicine guidelines do not exist in [facility], the most recent care guideline entered by an external hospital care provider is displayed.) Guidelines Source: [facility] Guidelines Date: 09/05/2024 Care Recommendation: -Educate patient and family on appropriate use of Emergency Department -Encourage patient to utilize PCP prior to ED visit and for follow up with medical concerns -Consider request for ED SCREW EYE ASSEMBLER consult at next presentation to the ED. If ED SCREW EYE ASSEMBLER is not present please leave information so ED SCREW EYE ASSEMBLER can follow up with phone call. -Provide resources as requested. [facility] Security Events No recent Security Events currently on file --CARE PROVIDERS-- CARE PROVIDERS Name Phone Type Service Dates ---- ----- ---- Karmen Echeverria [phone] Senior Credit Analyst/V/[place]ol Landing Signal Officer Unknown - Current RICARDO SALGADO Unknown Family Medicine Unknown - Current Procedure Note EXTERNAL ATTENDING PHYSICIAN - 07/26/2025 Patient has visited an external emergency department or has beenhospitalized outside of [facility] --MOST RECENT VISIT-- IP Admit:07/25/25 16:20 Discharge:07/26/25 15:00 Location:[facility] Attending Provider:Santy Encounter Type:Acute Care Major Class:Inpatient Chief Complaint:sent from PCP blood sugar over 600. Diagnosis: Type 2 diabetes mellitus with hyperglycemia ED/UCC VISIT TRACKING (3 MO.) Visit Date Location [facility] TypeDx/Complaint -------- ------- 07/25/2025 13:24 [facility] [place] Emergency sent fromPCP blood sugar over 600. 07/14/2025 08:46 [facility] [place] Emergency Bloodclot LT Leg/vomiting/SOB 07/01/2025 21:15 [facility] EmergencyAgglutinin dz, dizzy, fatigue 06/18/2025 19:26 [facility] Emergency left legpossible infection 06/14/2025 22:52 [facility] Emergency weakness, nausea 06/07/2025 20:58 [facility] Emergency dizzy,fever 05/18/2025 10:00 [facility] Emergency Left legred and swollen 05/15/2025 16:23 [facility] Emergency WIC gaveclindamycin yesterday has fever today INPATIENT VISIT TRACKING (1 MO.) Visit Date Location [facility] TypeDx/Complaint -------- ------- 07/25/2025 16:20 [facility] AcuteCare 1. Type 2 diabetes mellitus with hyperglycemia 07/14/2025 17:20 [facility] [place] [facility], dizzy, fatigue ED VISIT COUNT (12 MO.) Visits Location ------ --------- [address] [place] [address] Total Note: Visits indicate total known visits. --CARE GUIDELINES-- (Below are the most recent care guidelines entered by a Medicine careprovider in [facility]. If Medicine guidelines do not exist in [facility], the mostrecent care guideline entered by an external hospital care provider isdisplayed.) Guidelines Source: [facility] Guidelines Date: 09/05/2024 Care Recommendation: -Educate patient and family on appropriate use of EmergencyDepartment -Encourage patient to utilize PCP prior to ED visit and for follow upwith medical concerns -Consider request for ED SCREW EYE ASSEMBLER consult at next presentation to the ED.If ED SCREW EYE ASSEMBLER is not present please leave information so ED SCREW EYE ASSEMBLER can follow up with phone call. -Provide resources as requested. [facility] Security Events No recent Security Events currently on file --CARE PROVIDERS-- CARE PROVIDERS Name Phone TypeService Dates ---- ----- Karmen Echeverria [phone] Senior Credit Analyst/Care CoordinatorUnknown - Current RICARDO SALGADO Family MedicineUnknown - Current us External Attending Physician OTHER Fin al Result [facility] * External Pathology Review (05/24/2025) Case Report Surgical Pathology Report Case: [id number] Authorizing Provider: Chidi Mo MD Collected: 05/24/2025 Ordering Location: [facility] Pathology HOV Received: 05/28/2025 07:03 AM Pathologist: Lobo Jose MD Specimen: Skin, biopsy, shave IF, Skin of right thigh 4:[address] [facility] Final Diagnosis A) Skin, right thigh, biopsy: - Negative direct immunofluorescence studies, see comment. COMMENT: Direct immunofluorescence studies are negative, arguing against an immunobullous disorder or vasculitis. 4:[address] [facility] at 1635 PDT Gross Description A. Skin, biopsy, shave IF. Received in DIF media. labeled, Bandar George; Skin of right thigh is a 0.5 cm pink soft tissue fragment entirely submitted for immunofluorescence studies. (MS) 4:[address] [facility] Immunofluorescence Report Slides Test Result A1-1 fs HE IF level 1 Adequate A1-2 IgG, frozen by IF Negative A1-3 IgA, frozen by IF Negative A1-4 IgM, frozen by IF Negative A1-5 C3, frozen by IF Negative A1-6 Fibrinogen, frozen by IF Negative All controls show appropriate reactivity. 4:[address] [facility] IHC, DANIA and IF Disclaimer Note: Some tests cited above may have been developed and their performance characteristics determined by the [facility]. They have not been cleared or approved by the U.S. Food and Drug Administration (FDA). However, the FDA has determined that such clearance or approval is not necessary. These tests are used for clinical purposes and should not be regarded as investigational or for research. The performing laboratories at [facility], [facility] or [facility] are certified under the Clinical Laboratory Improvement Amendments of 1988 (CLIA '88) as qualified to perform high complexity laboratory testing. 4:[address] [facility] Case Testing Locations Disclaimer The technical and/or professional components of this case may have been performed at any of the following laboratories. These records are maintained internally and more information is available upon request. [facility]: [address] [place] [address] [facility]: [address], [place], [address] [facility] [place]: [address] [place] [address] 5 4:[address] [facility] Tissue HAIR-BEARING SKIN / Unknown 05/24/2025 05/28/2025 7:03 AM PDT Chidi Mo MD LAB PATHOLOGY ORDERABLES Final Result [facility] [address] [facility] [address] [place] [address], [facility] [phone] from Last 3 Months Insurance * Guarantor: Bandar George Account Type Relation to Patient Date of Phone Billing Address Personal/Family Self 1970 [address] [place] [address] [facility] MEDICAID * Guarantor: Bandar George Account Type Relation to Patient Date of Phone Billing Address Pharmacy Self 1970 [address] [place] [address] * Guarantor: Bandar George Account Type Relation to Patient Date of Phone Billing Address [facility] Self 1970 [address] [facility] [address] [employer] Member Subscriber Plan / Payer (Ef fective 2019-Present) Name:Bandar George Member ID:[id number] Relation to Subscriber:Self Name:Bandar George Subscriber ID:[id number] Payer ID:[id number] (NAIC) Type:Medicaid Address: [address] [address] [employer] Care Teams Baggage Porter Relationship Specialty Start Date End Date Ricardo Salgado MD PCP - General Family Practice 07/27/22
== END ==
LOC: WC 11:23
PROVIDERS: PCP Family Medicine; Referring Provider Family Medicine; Visit Provider Surgery
DX: I87.2 Venous insufficiency (chronic) (peripheral) (principal)
CPT/HCPCS: 99212; 99213

== ENCOUNTER 2025-08-13 09:03 | Inpatient (IN) | payer OTHER, SELFPAY ==
[2025-05-23 17:12] VITALS: PULSE 106; RESP 24; O2SAT 94
[2025-07-25 18:44] VITALS: BMI 38.0
[2025-08-13] VITALS (21 sets, daily range): BP systolic 99–127; BP diastolic 55–68; PULSE 99–125; RESP 12–22; TEMP 36.8–37.1; O2SAT 91–100; BMI 35.2
--- NOTE | 2025-08-13 09:12 | EKG_ITS ---
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
--- NOTE | 2025-08-13 09:15 | DI.RAD.S_ITS ---
PROCEDURE: XR CHEST 1V INDICATIONS: Chest Pain TECHNIQUE: One view of the chest was acquired. COMPARISON: [facility], CR, XR CHEST 2V, 07/02/2025, 1:25. FINDINGS: Surgical changes and devices: None. Lungs and pleura: Lungs are clear. No pleural effusions or pneumothorax. Mediastinum: Mediastinal contours appear normal. Heart size is normal. Bones and chest wall: No suspicious bony lesions. Overlying soft tissues appear unremarkable. IMPRESSION: No acute cardiopulmonary abnormality is seen. Dictated by: Abebe Neff M.D. on 08/13/2025 at 9:50 Approved by: Abebe Neff M.D. on 08/13/2025 at 9:50
--- NOTE | 2025-08-13 09:27 | ED.CHESTPAIN ---
HPI - Chest Pain General Chief Complaint: Chest Pain Stated Complaint: Chest and stomach pain 3 days Time Seen by Provider: 08/13/25 09:11 Source: patient Mode of arrival: Ambulatory Limitations: no limitations History of Present Illness HPI narrative: Patient complains of left upper quadrant pain for the past 4 days. Has not had a bowel movement in 4 days. Patient has history of C diff. he is on Eliquis for blood clot in the left leg. Denies any black or bloody stools. He has had nausea. Patient was admitted [facility] for cold agglutinins and developed pneumonia and was placed on antibiotics. He went home and developed C diff and was readmitted to [facility]. He was discharged home. He was recently admitted here 2 weeks ago for hyperglycemia. Patient takes oxycodone at home for chronic pain. Related Data Home Medications ?Medication ?Instructions ?Recorded ?Confirmed spironolactone 25 mg tablet 25 mg PO BID 12/28/23 08/13/25 furosemide 40 mg tablet See Rx Instructions .Route 06/10/24 08/13/25 .COMPLEX PRN Swelling beclomethasone dipropionate 80 See Rx Instructions .Route .COMPLEX 05/18/25 08/13/25 mcg/actuation HFA breath activated aerosol (Qvar RediHaler) tiotropium bromide 18 mcg capsule See Rx Instructions .Route .COMPLEX 05/18/25 08/13/25 with inhalation device (Spiriva with HandiHaler) dapagliflozin propanediol 10 mg 10 mg PO DAILY 06/14/25 08/13/25 tablet famotidine 20 mg tablet 20 mg PO BID 06/14/25 08/13/25 metformin 500 mg tablet See Rx Instructions .Route .COMPLEX 07/02/25 08/13/25 prednisone 10 mg tablet 10 mg PO DAILY 07/02/25 08/13/25 losartan 100 mg tablet 50 mg PO DAILY 07/25/25 08/13/25 naloxone 4 mg/actuation nasal spray 1 spray intranasal 07/25/25 Previous Rx's ?Medication ?Instructions ?Recorded epinephrine 0.3 mg/0.3 mL 0.3 mg (0.3 mL) IM SEE 07/17/19 injection, auto-injector (EpiPen INSTRUCTIONS #2 ea 2-Nura) albuterol sulfate 90 mcg/actuation See Rx Instructions .Route 01/31/25 aerosol inhaler .COMPLEX #8.5 grams ferrous gluconate 324 mg (37.5 mg 324 mg PO DAILY #90 tabs 01/31/25 iron) tablet finasteride 5 mg tablet 5 mg PO DAILY #90 tabs 01/31/25 cyclobenzaprine 10 mg tablet 10 mg PO TID PRN muscle spasm #180 02/01/25 tabs gabapentin 600 mg tablet 1,200 mg (2 x 600 mg) PO TID #240 02/27/25 tabs amlodipine 10 mg tablet 10 mg PO DAILY #90 tabs 05/07/25 mometasone-formoterol HFA 200 See Rx Instructions .Route 05/07/25 mcg-5 mcg/actuation aerosol .COMPLEX #13 grams inhaler (Dulera) nicotine 14 mg/24 hr daily 1 patch transdermal DAILY #28 ea 05/16/25 transdermal patch trazodone 150 mg tablet 150 mg PO BEDTIME PRN insomnia #30 05/16/25 tabs apixaban 5 mg tablet (Eliquis) 5 mg PO BID #180 tabs 06/19/25 venlafaxine 75 mg tablet,extended See Rx Instructions .Route 06/27/25 release 24 hr .COMPLEX #90 tabs tirzepatide 10 mg/0.5 mL 10 mg (0.5 mL) SUBCUT QWEEK #2 mL 07/02/25 subcutaneous pen injector (Mounjaro) buprenorphine 2 mg-naloxone 0.5 mg See Rx Instructions buccal 07/05/25 sublingual film (Suboxone) .COMPLEX #30 ea diazepam 2 mg tablet 4 mg (2 x 2 mg) PO BEDTIME PRN 07/20/25 sleep #60 tabs glimepiride 4 mg tablet 4 mg PO DAILY #30 tabs 07/26/25 oxycodone-acetaminophen 10 mg-325 See Rx Instructions PO .COMPLEX 08/02/25 mg tablet (Percocet) PRN pain #180 tabs Allergies Allergy/AdvReac Type Severity Reaction Status Date / Time Penicillins (PENICILLINS) Allergy Severe Facial/mouth Verified 08/13/25 16:04 numbness, mouth/lip swelling clindamycin Allergy Intermediate Verified 08/13/25 09:12 cephalexin (CEPHALEXIN) Allergy Mild FACIAL Verified 08/13/25 09:12 SWELLING terbinafine (TERBINAFINE) Allergy Unknown Unknown Verified 08/13/25 09:12 nut - unspecified Allergy Anaphylaxis Verified 08/13/25 09:12 benralizumab (From Fasenra) AdvReac Severe SOB Verified 08/13/25 09:12 Cephalosporins AdvReac Intermediate Vomiting Verified 08/13/25 09:12 (CEPHALOSPORINS) Beta-Blockers AdvReac Mild ASTHMA Verified 08/13/25 09:12 (Beta-Adrenergic Bloc nadolol (NADOLOL) AdvReac Mild AGGREVATES Verified 08/13/25 09:12 ASTHMA semaglutide (From Ozempic) AdvReac Mild CONSTIPATIO Verified 08/13/25 09:12 N Sulfa (Sulfonamide AdvReac Mild VOMITING Verified 08/13/25 09:12 Antibiotics) (SULFA (SULFONAMIDE ANTIBIOTICS)) Review of Systems Review of Systems Narrative: GENERAL: Negative chills, fatigue, malaise, fever, sweats. HEENT: Negative sinus pain, ear pain, sore throat RESPIRATORY: Negative dyspnea, cough CARDIOVASCULAR: Negative chest pain, palpitations GASTROINTESTINAL: Negative vomiting, positive nausea, abdominal pain : Negative dysuria, frequency, hematuria MUSCULOSKELETAL: Negative muscle or bony pain SKIN: Negative rash, skin lesions NEUROLOGIC: Negative weakness, numbness ROS Unobtainable: All systems reviewed & are unremarkable except as noted in HPI and below Patient History Medical History Cold agglutinin disease C. 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 EYES: Pupils equal round ENT: Mucous membranes moist. NECK: Trachea midline. CARDIOVASCULAR: Regular rate and rhythm RESPIRATORY: Clear to auscultation. Breath sounds equal bilaterally. No wheezes, rales, or rhonchi. GASTROINTESTINAL: Abdomen soft, reproducible left upper quadrant tenderness no peritoneal signs no guarding or rebound. Bowel sounds are present. BACK: No flank tenderness. EXTREMITIES: No gross deformities. NEURO: AOx4. Clear speech SKIN: Warm and dry PSYCH: Not anxious, is cooperative Initial Vital Signs Initial Vital Signs: Vital Signs Temperature 98.7 F 08/13/25 09:04 Pulse Rate 118 H 08/13/25 09:04 Respiratory Rate 17 08/13/25 09:04 Blood Pressure 127/58 L 08/13/25 09:04 Pulse Oximetry 98 08/13/25 09:04 Oxygen Delivery Method Room Air 08/13/25 09:04 Course Orders Ordered: Acetaminophen (Acetaminophen 325 Mg Tablet) 650 mg PO Q6H PRN PRN Reason: Fever/Mild Pain (1-3) Hydrocodone Bitart/Acetaminophen (Hydrocodone/Acet 5/325 Tablet) 1 tab PO Q4H PRN PRN Reason: Pain, Moderate (4-6) Albuterol (Albuterol 2.5 Mg/3 Ml Neb (Adult)) 2.5 mg INH Q2H PRN PRN Reason: Shortness Of Breath Albuterol/Ipratropium (Albuterol/Ipratropium 3 Ml Ampul) 3 ml INH [id number] [facility] Last Admin: 08/13/25 23:01 Dose: 3 ml Documented By: Admin: 08/13/25 18:55 Dose: 3 ml Documented By: FATOU Amlodipine Besylate (Amlodipine 5 Mg Tablet) 10 mg PO DAILY [facility] Last Admin: 08/13/25 15:52 Dose: 10 mg Documented By: KARIS Apixaban (Apixaban 5 Mg Tablet) 5 mg PO BID [facility] Last Admin: 08/13/25 21:53 Dose: 5 mg Documented By: ALBERTO Budesonide (Budesonide 0.5 Mg/2 Ml Neb) 0.5 mg INH RTBID [facility] Last Admin: 08/13/25 18:55 Dose: 0.5 mg Documented By: FATOU Cyclobenzaprine HCl (Cyclobenzaprine 10 Mg Tablet) 10 mg PO TID PRN PRN Reason: Muscle Spasm Last Admin: 08/13/25 15:52 Dose: 10 mg Documented By: KARIS Diazepam (Diazepam 2 Mg Tablet) 4 mg PO BEDTIME PRN PRN Reason: Sleep Last Admin: 08/13/25 22:15 Dose: 4 mg Documented By: AMH Famotidine (Famotidine 20 Mg Tablet) 20 mg PO BID [facility] Last Admin: 08/13/25 21:53 Dose: 20 mg Documented By: AMH Ferrous Sulfate (Ferrous Sulfate 325 Mg Tablet) 325 mg PO DAILY [facility] Finasteride (Finasteride 5 Mg Tablet) 5 mg PO DAILY [facility] Gabapentin (Gabapentin 600 Mg Tablet) 1,200 mg PO TID [facility] Last Admin: 08/13/25 21:53 Dose: 1,200 mg Documented By: Admin: 08/13/25 15:52 Dose: 1,200 mg Documented By: MM Sodium Chloride (Normal Saline 0.9%) 1,000 mls @ 75 mls/hr IV CONT [facility] Last Admin: 08/14/25 07:04 Dose: 75 mls/hr Documented By: Infusion: 08/14/25 07:04 Dose: Infused Documented By: Admin: 08/13/25 15:51 Dose: 75 mls/hr Documented By: MM Doxycycline Hyclate 100 mg/ (Sodium Chloride) 100 mls @ 100 mls/hr IV Q12H [facility] Last Infusion: 08/14/25 04:25 Dose: Infused Documented By: Admin: 08/14/25 03:08 Dose: 100 mls/hr Documented By: Infusion: 08/13/25 17:28 Dose: Infused Documented By: Admin: 08/13/25 16:06 Dose: 100 mls/hr Documented By: MM Metronidazole (Flagyl) 500 mg in 100 mls @ 100 mls/hr IV Q8H [facility] Last Infusion: 08/14/25 06:15 Dose: Infused Documented By: Admin: 08/14/25 05:17 Dose: 100 mls/hr Documented By: Infusion: 08/13/25 23:06 Dose: Infused Documented By: Admin: 08/13/25 21:52 Dose: 100 mls/hr Documented By: AM[facility] Insulin Human Lispro (Insulin Lispro 100 Unit/Ml 3ml Vial) 0 unit SUBCUT ACHS [facility]; Protocol Last Admin: 08/13/25 21:54 Dose: Not Given Documented By: AM[facility] Lidocaine (Lidocaine 5% Patch) 1 each TOP DAILY [facility] Losartan Potassium (Losartan 50 Mg Tablet) 50 mg PO DAILY [facility] Metformin HCl (Metformin 500 Mg Tablet) 1,000 mg PO 1700 [facility] Last Admin: 08/13/25 16:53 Dose: 1,000 mg Documented By: MM Naloxone HCl (Naloxone 0.4 Mg/Ml Vial) 0.2 mg IV Q2MIN PRN PRN Reason: Opiate Reversal Nicotine (Nicotine 14 Patch) 14 mg TOP DAILY [facility] Nf - Buprenorphine- Naloxone (Suboxone) 2-0.5 Mg Film 0.5 mg SL TID [facility] Last Admin: 08/13/25 21:54 Dose: Not Given Documented By: AMH Ondansetron HCl (Ondansetron 4 Mg/2 Ml Inj) 4 mg IV Q6HR PRN PRN Reason: Nausea And Vomiting Last Admin: 08/13/25 23:51 Dose: 4 mg Documented By: ALBERTO Oxycodone HCl (Oxycodone Ir 10 Mg Tablet) 10 mg PO Q4H PRN PRN Reason: pain Oxycodone/Acetaminophen (Oxycodone/Acetaminophen 5/325 Tablet) 2 tab PO Q4H PRN PRN Reason: pain Last Admin: 08/14/25 06:20 Dose: 2 tab Documented By: Admin: 08/13/25 22:14 Dose: 2 tab Documented By: Admin: 08/13/25 16:53 Dose: 2 tab Documented By: KARIS Prednisone (Prednisone 20 Mg Tablet) 10 mg PO DAILY [facility] Spironolactone (Spironolactone 25 Mg Tablet) 25 mg PO BID [facility] Last Admin: 08/13/25 21:53 Dose: 25 mg Documented By: ALBERTO Trazodone HCl (Trazodone 50 Mg Tablet) 150 mg PO BEDTIME PRN PRN Reason: Insomnia Last Admin: 08/13/25 15:52 Dose: 150 mg Documented By: MM Vancomycin HCl (Vancomycin 125 Mg Capsule) 125 mg PO QID [facility] Last Admin: 08/13/25 21:53 Dose: 125 mg Documented By: Admin: 08/13/25 16:53 Dose: 125 mg Documented By: MM Venlafaxine HCl (Venlafaxine Er 75 Mg Cap) 75 mg PO DAILY [facility] Discontinued Medications Albuterol (Albuterol 2.5 Mg/3 Ml Neb (Adult)) 2.5 mg INH Q6HRWA [facility] Last Admin: 08/14/25 03:21 Dose: Not Given Documented By: AMH Albuterol (Albuterol 2.5 Mg/3 Ml Neb (Adult)) 2.5 mg INH Q4HRWA BC Sodium Chloride (Normal Saline 0.9%) 1,000 mls @ 1,000 mls/hr IV BOLUS ONE Stop: 08/13/25 10:37 Last Infusion: 08/13/25 12:00 Dose: Infused Documented By: Admin: 08/13/25 10:08 Dose: 1,000 mls/hr Documented By: RACHEL Magnesium Sulfate (Magnesium Sulfate) 2 gm in 50 mls @ 25 mls/hr IV NOW ONE Stop: 08/13/25 12:36 Last Infusion: 08/13/25 13:51 Dose: Infused Documented By: VALDO Co-signed By: ELEN Admin: 08/13/25 11:55 Dose: 25 mls/hr Documented By: RACHEL Co-signed By: TONI Metronidazole (Flagyl) 500 mg in 100 mls @ 100 mls/hr IV NOW ONE Stop: 08/13/25 14:00 Last Infusion: 08/13/25 15:45 Dose: Infused Documented By: Admin: 08/13/25 13:59 Dose: 100 mls/hr Documented By: VALDO Ipratropium [place] (Ipratropium 0.5 Mg/2.5 Ml Neb) 0.5 mg INH Q4HRWA BC Morphine Sulfate (Morphine 4 Mg/Ml Inj) 4 mg IV NOW ONE Stop: 08/13/25 09:39 Last Admin: 08/13/25 10:09 Dose: 4 mg Documented By: RACHEL Ondansetron HCl (Ondansetron 4 Mg/2 Ml Inj) 4 mg IV NOW ONE Stop: 08/13/25 09:39 Last Admin: 08/13/25 10:09 Dose: 4 mg Documented By: RACHEL Pantoprazole Sodium (Pantoprazole 40 Mg Vial) 40 mg IV NOW ONE Stop: 08/13/25 09:42 Last Admin: 08/13/25 10:09 Dose: 40 mg Documented By: RACHEL Vital Signs Vital signs: Vital Signs - 8 hr 08/13/25 09:04 08/13/25 09:09 08/13/25 09:30 Temperature 98.7 F Pulse Rate 118 H 119 H 111 H Respiratory Rate 17 17 Blood Pressure 127/58 L Pulse Oximetry 98 92 92 Oxygen Delivery Method Room Air 08/13/25 09:35 12/01/25 09:35 08/13/25 10:16 Temperature Pulse Rate 114 H 108 H Respiratory Rate 20 Blood Pressure 124/68 Pulse Oximetry 96 Oxygen Delivery Method Room Air 08/13/25 10:17 08/13/25 10:17 08/13/25 10:30 Temperature Pulse Rate 108 H 104 H Respiratory Rate 22 16 Blood Pressure 101/60 Pulse Oximetry 93 Oxygen Delivery Method 08/13/25 10:30 08/13/25 11:08 08/13/25 11:09 Temperature Pulse Rate 108 H Respiratory Rate Blood Pressure 102/57 L 116/61 Pulse Oximetry 93 Oxygen Delivery Method Room Air 08/13/25 11:09 08/13/25 11:30 08/13/25 11:30 Temperature Pulse Rate 107 H 109 H Respiratory Rate 15 12 Blood Pressure 112/55 L Pulse Oximetry 93 93 Oxygen Delivery Method 08/13/25 12:00 08/13/25 12:00 Temperature Pulse Rate 101 H Respiratory Rate 14 Blood Pressure 111/64 Pulse Oximetry 93 Oxygen Delivery Method MDM - Chest Pain Lab Data 08/13/25 09:30 08/13/25 09:30 Labs: Lab Results 08/13/25 08/13/25 08/13/25 Range/Units 09:30 09:35 10:15 WBC 13.2 H (4.5-11.0) X10^3/uL RBC 4.28 L (4.5-5.9) X10^6/uL Hgb 11.9 L (13.5-17.5) g/dL Hct 36.3 L (41-53) % MCV 84.8 (80-100) fL MCH 27.7 (26-34) PG MCHC 32.7 (30-36) % RDW 15.7 H (11.6-14.8) % Plt Count 244 (150-400) X10^3/uL Neut % (Auto) 80.1 H (50-75) % Lymph % (Auto) 8.6 L (25-40) % Bland % (Auto) 10.0 (3-14) % Eos % (Auto) 0.9 L (2-4) % Baso % (Auto) 0.4 (0-2) % Neut # (Auto) 36349 H (3982-7500) /uL Lymph # (Auto) 1100 (5880-0331) /uL Bland # (Auto) 1300 H (0-900) /uL Eos # (Auto) 100 (0-450) /uL Baso # (Auto) 100 (0-100) /uL PT 16.2 H (9.4-12.5) SECONDS INR 1.4 H (0.9-1.3) APTT 33 (25.1-36.5) SECONDS Sodium 130 L (137-145) mmol/L Potassium 4.2 (3.4-5.1) mmol/L Chloride 94 L (98-107) mmol/L Carbon Dioxide 25 (22-32) mmol/L BUN 44 H (9-20) mg/dL Creatinine 1.16 (0.66-1.25) mg/dL Estimated GFR > 60 (>60) mL/min BUN/Creatinine Ratio 37.9 H (6-22) Glucose 208 H (70-99) mg/dL Lactate (0.7-2.1) mmol/L Calcium 7.8 L (8.4-10.2) mg/dL Magnesium 0.4 L* (1.6-2.3) mg/dL Total Bilirubin 0.5 (0.2-1.3) mg/dL AST 31 (17-59) IU/L ALT 24 (<50) IU/L Alkaline Phosphatase 143 H (38-126) U/L Total Creatine Kinase < 20 L (55-170) U/L Troponin I 0.105 H (0.01-0.034) ng/mL NT-Pro-B Natriuret Pep 281 H (<125) pg/mL Total Protein 7.0 (6.3-8.2) g/dL Albumin 4.1 (3.5-5.0) g/dL Globulin 2.9 (1.7-4.1) g/dL Albumin/Globulin Ratio 1.4 (1.0-2.8) Lipase 14 L (23-300) U/L Procalcitonin 0.757 H (<0.5) ng/mL Ur Bilirubin Confirm Negative (Negative) Chlamy pneumoniae PCR (Not Detect) Adenovirus (PCR) (Not Detect) B. pertussis DNA (PCR) (Not Detect) B.parapertussis DNA PCR (Not Detecte) Coronavirus OC43 (PCR) (Not Detect) Coronavirus HKU1 (PCR) (Not Detect) Coronavirus 229E (PCR) (Not Detect) SARS-CoV-2 (PCR) (Not Detecte) Coronavirus NL63 (PCR) (Not Detect) Human Metapneumovir PCR (Not Detect) Influenza Type A (PCR) (Not Detect) Influenza Type B (PCR) (Not Detect) M. pneumoniae (PCR) (Not Detect) Parainfluenza 1 (PCR) (Not Detect) Parainfluenza 2 (PCR) (Not Detect) Parainfluenza 3 (PCR) (Not Detect) Parainfluenza 4 (PCR) (Not Detect) RSV (PCR) (Not Detect) Entero/Rhino (PCR) (Not Detect) 08/13/25 08/13/25 08/13/25 Range/Units 12:00 12:15 12:17 WBC (4.5-11.0) X10^3/uL RBC (4.5-5.9) X10^6/uL Hgb (13.5-17.5) g/dL Hct (41-53) % MCV (80-100) fL MCH (26-34) PG MCHC (30-36) % RDW (11.6-14.8) % Plt Count (150-400) X10^3/uL Neut % (Auto) (50-75) % Lymph % (Auto) (25-40) % Bland % (Auto) (3-14) % Eos % (Auto) (2-4) % Baso % (Auto) (0-2) % Neut # (Auto) (3276-9160) /uL Lymph # (Auto) (6100-3876) /uL Bland # (Auto) (0-900) /uL Eos # (Auto) (0-450) /uL Baso # (Auto) (0-100) /uL PT (9.4-12.5) SECONDS INR (0.9-1.3) APTT (25.1-36.5) SECONDS Sodium (137-145) mmol/L Potassium (3.4-5.1) mmol/L Chloride (98-107) mmol/L Carbon Dioxide (22-32) mmol/L BUN (9-20) mg/dL Creatinine (0.66-1.25) mg/dL Estimated GFR (>60) mL/min BUN/Creatinine Ratio (6-22) Glucose (70-99) mg/dL Lactate 0.7 (0.7-2.1) mmol/L Calcium (8.4-10.2) mg/dL Magnesium (1.6-2.3) mg/dL Total Bilirubin (0.2-1.3) mg/dL AST (17-59) IU/L ALT (<50) IU/L Alkaline Phosphatase (38-126) U/L Total Creatine Kinase < 20 L (55-170) U/L Troponin I 0.088 H (0.01-0.034) ng/mL NT-Pro-B Natriuret Pep (<125) pg/mL Total Protein (6.3-8.2) g/dL Albumin (3.5-5.0) g/dL Globulin (1.7-4.1) g/dL Albumin/Globulin Ratio (1.0-2.8) Lipase (23-300) U/L Procalcitonin (<0.5) ng/mL Ur Bilirubin Confirm (Negative) Chlamy pneumoniae PCR Not detected (Not Detect) Adenovirus (PCR) Not detected (Not Detect) B. pertussis DNA (PCR) Not detected (Not Detect) B.parapertussis DNA PCR Not detected (Not Detecte) Coronavirus OC43 (PCR) Not detected (Not Detect) Coronavirus HKU1 (PCR) Not detected (Not Detect) Coronavirus 229E (PCR) Not detected (Not Detect) SARS-CoV-2 (PCR) Not detected (Not Detecte) Coronavirus NL63 (PCR) Not detected (Not Detect) Human Metapneumovir PCR Not detected (Not Detect) Influenza Type A (PCR) Not detected (Not Detect) Influenza Type B (PCR) Not detected (Not Detect) M. pneumoniae (PCR) Not detected (Not Detect) Parainfluenza 1 (PCR) Not detected (Not Detect) Parainfluenza 2 (PCR) Not detected (Not Detect) Parainfluenza 3 (PCR) Not detected (Not Detect) Parainfluenza 4 (PCR) Not detected (Not Detect) RSV (PCR) Not detected (Not Detect) Entero/Rhino (PCR) Not detected (Not Detect) Urine Dip Bedside Urine Glucose Negative Bedside Urine Bilirubin + 1 Bedside Urine Ketone - Negative Urine Specific [place] 1.005 Bedside Urine Occult Blood - Negative Bedside Urine pH 6.0 Bedside Urine Protein +/- 15 Bedside Urine Urobilinogen - Negative Bedside Urine Nitrite - Negative Bedside Urine Leukocytes - Negative Esterase Imaging Data CT scan - abdomen/pelvis: Radiologist's Impression: [address] [address] [address] Scan Report Signed Patient: Bandar George MR#: [id number] : 1970 Acct:[id number] Age/Sex: 55 / M Date of Service: 08/13/25 Loc: ED Accession Number: [id number] Procedure: CT abdomen pelvis w con Ordering Provider: Aldo Lee MD PROCEDURE: CT ABDOMEN PELVIS W CON INDICATIONS: Left upper quadrant pain TECHNIQUE: After the administration of intravenous contrast, axial sections acquired from the lung bases to the pubic symphysis. Coronal and sagittal reformats were performed. For radiation dose reduction, the following was used: automated exposure control, adjustment of mA and/or kV according to patient size. COMPARISON: [facility], CT, CT ABDOMEN PELVIS W CON, 07/25/2025, 14:11. FINDINGS: Image quality: Diagnostic. Lower Chest: Small focal left basilar wedge-shaped infiltrate. Possible focal filling defect in the distal right lower lobe pulmonary artery. This may represent artifact. ABDOMEN: Liver: No solid mass. Question cirrhotic change with enlargement of the left lobe of the liver. Gallbladder: No radiopaque gallstones or wall thickening. Biliary ducts: No biliary dilation. Pancreas: No ductal dilation. Spleen: Size is within normal limits. Adrenal Glands: No adrenal nodules. Kidneys and Ureters: No hydronephrosis. No solid mass. No complex renal cystic lesion which requires follow up. Stomach and Bowel: Moderately large fecal load. Question mild colitis involving the cecum through sigmoid with mild wall thickening and mild inflammatory change in the adjacent fat. Peritoneum: Trace ascites. No free air. Ventral Wall: No significant ventral hernia. Abdominal Nodes: No retroperitoneal or mesenteric adenopathy by size criteria. Vessels: Aorta and inferior vena cava are normal in size. PELVIS: Pelvic Organs: Unremarkable. Bladder: No bladder wall thickening, accounting for underdistention. Pelvic Nodes: No enlarged lymph nodes. Miscellaneous: No inguinal hernias are seen. Bones: No aggressive osseous abnormality. Short pedicles, central posterior disc protrusion and facet and ligament hypertrophy at L4-L5 results in severe canal stenosis at this level. Disc protrusion at L3-L4 and short pedicles results in moderate canal stenosis. IMPRESSION: 1. Possible pulmonary embolus in the right lower lobe pulmonary artery, not definite. 2. Wedge-shaped focal left basilar infiltrate, potentially representing pneumonia versus pulmonary infarct. 3. Mild diffuse colitis. This would involve the cecum through the sigmoid. 4. Question cirrhosis. 5. Trace ascites. 6. Moderate canal stenosis at L3-L4, severe canal stenosis at L4-L5. Comment: Recommend CT angiogram of the chest to rule out acute pulmonary emboli. Dictated by: Abebe Neff M.D. on 08/13/2025 at 9:58 Approved by: Abebe Neff M.D. on 08/13/2025 at 10:05 CT scan - chest: Radiologist's Impression: [place] [address] CT Scan Report Signed Patient: Bandar George MR#: [id number] : 1970 Acct:[id number] Age/Sex: 55 / M Date of Service: 08/13/25 Loc: ED Accession Number: [id number] Procedure: CT angio chest PE protocol Ordering Provider: Aldo Lee MD PROCEDURE: CT ANGIO CHEST PE PROTOCOL INDICATIONS: Left side pain TECHNIQUE: After the administration of intravenous contrast, 2 mm thick sections acquired from the pulmonary apices to the posterior costophrenic angles. 3-dimensional maximum intensity projection (MIP) coronal and sagittal reformats were then acquired through the thorax. For radiation dose reduction, the following was used: automated exposure control, adjustment of mA and/or kV according to patient size. COMPARISON: [facility], CT, CT ABDOMEN PELVIS W CON, 08/13/2025, 9:48. [facility], CT, CT ANGIO CHEST PE PROTOCOL, 07/14/2025, 9:08. FINDINGS: Image quality: Diagnostic. Pulmonary arteries: Pulmonary arteries are normal in size, and demonstrate no intraluminal filling defects to suggest central pulmonary embolism. Lower Neck: No enlarged lymph nodes. Thyroid: No thyroid nodules which require sonographic follow up, per consensus guidelines. Axillae: No enlarged lymph nodes. Chest Wall: Unremarkable. Bones: Healing posterior left 10th rib fracture.. Lungs and Pleura: No pneumothorax or pleural effusions. Focal wedge-shaped pneumonia, posterior lateral basal segment, left lower lobe. Calcified granuloma, right lung. Heart: Heart size is normal. No pericardial effusion. Thoracic Vessels: No aortic aneurysm. Mediastinum and Lulu: No enlarged lymph nodes. Shotty left superior mediastinal and prevascular adenopathy without pathologically enlarged lymph nodes. Shotty subcarinal lymph nodes and calcified subcarinal lymph node. Esophagus: No wall thickening. No hiatal hernia. Upper Abdomen: Visualized upper abdomen solid organs and bowel loops appear normal. IMPRESSION: 1. No acute pulmonary emboli. 2. Focal wedge-shaped pneumonia, left lower lobe. 3. Chronic granulomatous disease. Comment: Progress films are recommended until clear. Dictated by: Abebe Neff M.D. on 08/13/2025 at 11:15 Approved by: Abebe Neff M.D. on 08/13/2025 at 11:20 MDM Narrative Medical decision making narrative: Patient complains of left upper quadrant pain for the past 4 days. Has not had a bowel movement in 4 days. Patient has history of C diff. he is on Eliquis for blood clot in the left leg. Denies any black or bloody stools. He has had nausea. Patient was admitted [facility] for cold agglutinins and developed pneumonia and was placed on antibiotics. He went home and developed C diff and was readmitted to [facility]. He was discharged home. He was recently admitted here 2 weeks ago for hyperglycemia. Patient takes oxycodone at home for chronic pain MDM After history and exam, CBC CMP EKG CT abdomen pelvis morphine Zofran normal saline troponin PT INR PTT CT abdomen pelvis Differential considered: Includes but not limited to gastritis acid reflux STEMI bowel obstruction colitis C diff constipation Medical records reviewed: Admission here July 25, 2025 Lab Test results independently reviewed as above. Pertinent findings: WBC 13.2 hemoglobin 11.9 hematocrit 36 platelets 244 INR 1.4 sodium 130 potassium 4.2 magnesium 0.4 troponin 0.105 BNP 281, repeat troponin 0.08 Independently reviewed EKG sinus tachycardia rate 113 Imaging studies independently reviewed: CT abdomen pelvis possible pulmonary embolism, diffuse colitis. Possible left base infiltrate, CT chest no pulmonary embolism Consultations: 12:23 p.m., spoke with Cardiology, dr rivera, he will follow in consult. No heparin at this time. Waiting for 2nd troponin. Need to treat underlying medical problems colitis and pneumonia and hypomagnesemia 1:03 p.m.. I spoke with hospitalist, reviewed troponin magnesium results and my discussion with Cardiology. Reviewed with him patient's recent pneumonia and C diff admissions to [facility] and [facility]. Dr lakhani, start Flagyl here. He will pick another antibiotic for patient as patient is allergic to Keflex and penicillin. Re-evaluations: 12:30 p.m.. Updated patient results. He states he was at [facility] for 1 admission and [place] at another admission. He does agree and in need of admission for low magnesium and treatment pneumonia. Elevated troponin needs to be follow up by cardiology services here. Discussion: IV contrast used for CT imaging. Appropriate for admission for pneumonia low magnesium and elevated troponin. Patient agrees and understands. No heparin, troponins trending downward Diagnosis: Pneumonia elevated troponin hypo magnesium Discharge Plan Departure Patient Disposition: Admitted As Inpatient Clinical Impression: Colitis, Hypomagnesemia, Elevated troponin Pneumonia Qualifiers: Pneumonia type: due to unspecified organism Laterality: left Lung location: lower lobe of lung Qualified Code(s): J18.9 - Pneumonia, unspecified organism Admit Date/Time: 08/13/25 13:03 Admit Provider: Nicolás Lakhani
--- NOTE | 2025-08-13 09:41 | DI.CT.S_ITS ---
PROCEDURE: CT ABDOMEN PELVIS W CON INDICATIONS: Left upper quadrant pain TECHNIQUE: After the administration of intravenous contrast, axial sections acquired from the lung bases to the pubic symphysis. Coronal and sagittal reformats were performed. For radiation dose reduction, the following was used: automated exposure control, adjustment of mA and/or kV according to patient size. COMPARISON: [facility], CT, CT ABDOMEN PELVIS W CON, 07/25/2025, 14:11. FINDINGS: Image quality: Diagnostic. Lower Chest: Small focal left basilar wedge-shaped infiltrate. Possible focal filling defect in the distal right lower lobe pulmonary artery. This may represent artifact. ABDOMEN: Liver: No solid mass. Question cirrhotic change with enlargement of the left lobe of the liver. Gallbladder: No radiopaque gallstones or wall thickening. Biliary ducts: No biliary dilation. Pancreas: No ductal dilation. Spleen: Size is within normal limits. Adrenal Glands: No adrenal nodules. Kidneys and Ureters: No hydronephrosis. No solid mass. No complex renal cystic lesion which requires follow up. Stomach and Bowel: Moderately large fecal load. Question mild colitis involving the cecum through sigmoid with mild wall thickening and mild inflammatory change in the adjacent fat. Peritoneum: Trace ascites. No free air. Ventral Wall: No significant ventral hernia. Abdominal Nodes: No retroperitoneal or mesenteric adenopathy by size criteria. Vessels: Aorta and inferior vena cava are normal in size. PELVIS: Pelvic Organs: Unremarkable. Bladder: No bladder wall thickening, accounting for underdistention. Pelvic Nodes: No enlarged lymph nodes. Miscellaneous: No inguinal hernias are seen. Bones: No aggressive osseous abnormality. Short pedicles, central posterior disc protrusion and facet and ligament hypertrophy at L4-L5 results in severe canal stenosis at this level. Disc protrusion at L3-L4 and short pedicles results in moderate canal stenosis. IMPRESSION: 1. Possible pulmonary embolus in the right lower lobe pulmonary artery, not definite. 2. Wedge-shaped focal left basilar infiltrate, potentially representing pneumonia versus pulmonary infarct. 3. Mild diffuse colitis. This would involve the cecum through the sigmoid. 4. Question cirrhosis. 5. Trace ascites. 6. Moderate canal stenosis at L3-L4, severe canal stenosis at L4-L5. Comment: Recommend CT angiogram of the chest to rule out acute pulmonary emboli. Dictated by: Abebe Neff M.D. on 08/13/2025 at 9:58 Approved by: Abebe Neff M.D. on 08/13/2025 at 10:05
[2025-08-13 09:43] LABS: Add Manual Diff / Slide Review NO; Hematocrit 36.3 % (41-53); Hemoglobin 11.9 g/dL (13.5-17.5); Lymphocytes Absolute Auto 1100 /uL (1100-4500); Mean Corpuscular HGB Conc 32.7 % (30-36); Mean Corpuscular Hemoglobin 27.7 PG (26-34); Mean Corpuscular Volume 84.8 fL (80-100); Platelet Count 244 X10^3/uL (150-400)
[2025-08-13 09:50] LABS: INR 1.4 (0.9-1.3); Prothrombin Time 16.2 SECONDS (9.4-12.5)
[2025-08-13 09:52] LABS: PTT Partial Thromboplastin Tim 33 SECONDS (25.1-36.5)
[2025-08-13 09:55] LABS: Alanine Aminotransferase 24 IU/L (<50); Albumin 4.1 g/dL (3.5-5.0); Albumin Globulin Ratio 1.4 (1.0-2.8); Alkaline Phosphatase 143 U/L (38-126); Blood Urea Nitrogen 44 mg/dL (9-20); Calcium 7.8 mg/dL (8.4-10.2); Carbon Dioxide 25 mmol/L (22-32); Chloride 94 mmol/L (98-107); Creatine Kinase < 20 U/L (55-170); Estimated Glomerular Filt Rate > 60 mL/min (>60); Globulin 2.9 g/dL (1.7-4.1); Glucose 208 mg/dL (70-99); HEMOLYSIS < 15 (0-50); Lipase 14 U/L (23-300); Potassium 4.2 mmol/L (3.4-5.1); Sodium 130 mmol/L (137-145); Total Protein 7.0 g/dL (6.3-8.2)
[2025-08-13 09:57] LABS: Magnesium 0.4 mg/dL (1.6-2.3)
[2025-08-13 10:07] LABS: NT-proBNP (BNP-Adult 18+) 281 pg/mL (<125); Troponin I 0.105 ng/mL (0.01-0.034)
[2025-08-13] MEDS: SODIUM CHLORIDE 0.9% 1,000 ML 1000 ML IV (10:08)
[2025-08-13] MEDS: ONDANSETRON 4 MG/2 ML INJ IV ×2 (10:09→23:51)
[2025-08-13] MEDS: MORPHINE 4 MG/ML INJ IV (10:09)
[2025-08-13] MEDS: PANTOPRAZOLE 40 MG VIAL IV (10:09)
[2025-08-13 10:32] LABS: Ictotest Urine Negative (Negative)
--- NOTE | 2025-08-13 10:52 | DI.CT.S_ITS ---
PROCEDURE: CT ANGIO CHEST PE PROTOCOL INDICATIONS: Left side pain TECHNIQUE: After the administration of intravenous contrast, 2 mm thick sections acquired from the pulmonary apices to the posterior costophrenic angles. 3-dimensional maximum intensity projection (MIP) coronal and sagittal reformats were then acquired through the thorax. For radiation dose reduction, the following was used: automated exposure control, adjustment of mA and/or kV according to patient size. COMPARISON: [facility], CT, CT ABDOMEN PELVIS W CON, 08/13/2025, 9:48. [facility], CT, CT ANGIO CHEST PE PROTOCOL, 07/14/2025, 9:08. FINDINGS: Image quality: Diagnostic. Pulmonary arteries: Pulmonary arteries are normal in size, and demonstrate no intraluminal filling defects to suggest central pulmonary embolism. Lower Neck: No enlarged lymph nodes. Thyroid: No thyroid nodules which require sonographic follow up, per consensus guidelines. Axillae: No enlarged lymph nodes. Chest Wall: Unremarkable. Bones: Healing posterior left 10th rib fracture.. Lungs and Pleura: No pneumothorax or pleural effusions. Focal wedge-shaped pneumonia, posterior lateral basal segment, left lower lobe. Calcified granuloma, right lung. Heart: Heart size is normal. No pericardial effusion. Thoracic Vessels: No aortic aneurysm. Mediastinum and Lulu: No enlarged lymph nodes. Shotty left superior mediastinal and prevascular adenopathy without pathologically enlarged lymph nodes. Shotty subcarinal lymph nodes and calcified subcarinal lymph node. Esophagus: No wall thickening. No hiatal hernia. Upper Abdomen: Visualized upper abdomen solid organs and bowel loops appear normal. IMPRESSION: 1. No acute pulmonary emboli. 2. Focal wedge-shaped pneumonia, left lower lobe. 3. Chronic granulomatous disease. Comment: Progress films are recommended until clear. Dictated by: Abebe Neff M.D. on 08/13/2025 at 11:15 Approved by: Abebe Neff M.D. on 08/13/2025 at 11:20
[2025-08-13] MEDS: MAGNESIUM SULFATE 2 GM/50 ML PIGGYBACK IV (11:55)
--- NOTE | 2025-08-13 12:12 | PC.NURSE ---
Mag started late due to patient in restroom and imaging.
[2025-08-13 12:19] LABS: Creatine Kinase < 20 U/L (55-170)
[2025-08-13 12:30] LABS: Procalcitonin 0.757 ng/mL (<0.5)
[2025-08-13 12:31] LABS: Troponin I 0.088 ng/mL (0.01-0.034)
[2025-08-13 12:37] LABS: Lactate (Lactic Acid) 0.7 mmol/L (0.7-2.1)
[2025-08-13 13:12] LABS: Coronavirus NL 63 Not Detected (Not Detect); SARS- CoV-2 Not Detected (Not Detecte)
--- NOTE | 2025-08-13 13:16 | CM.DANOTE ---
DCP Assessment Note: Pt is a 55yo male, resident of [place], is admitted for Pneumonia, elevated troponin, hypomagnesium. Pt lives in a house with his partner, Silvestre. Pt's Primary Care Provider is Dr. Ricardo Victoria and insurance is [employer]. Reviewed chart and discussed with multidisciplinary team pt's medical status and initial discharge needs. Per ED provider, pt to be admitted for IV abx and cardiac monitoring. Per EMR, patient was admitted on 07/25/25-07/26/25 for hyperglycemia and was discharged home. DCP met w/patient at bedside; introduced self and role. Patient was found in bed, alert and oriented, cooperative with assessment. Pt confirmed living situation and good support in partner. Pt expressed preference in discharge home when cleared. Patient denies a history of Home health or SNF Rehab. Has Caregivers from [facility] who are scheduled to come to home 4x/week for 4hours/day. Patient states he has not had caregivers in home for past 4 weeks due to active Enteric precautions (CDiff+). Pt agreeable to home health if it will allow his rehabilitation to continue at home. Patient has a history of [facility] but care plan has been completed/discharged. Plan: Anticipating discharge home with partner to transport when medically cleared. CM team will follow closely for coordination of discharge plans. SANGEETA Victor Discharge Planning/Care Management CM Discharge Assessment Start: 08/13/25 13:14 Freq: Status: Active Protocol: Document 08/13/25 13:14 MW (Rec: 08/13/25 13:16 MW [id number]) Discharge Planning Assessment Assigned Discharge OLIVER [employer] Provider Dr. Ricardo Victoria Insurance [employer] DPOA/Assigned Don, Partner Designee Name Contact Information [phone] Advance Directives? Yes Advance Directives No on File History Provided By Patient,Family Member,Medical Record Has Patient been Yes admitted in last 30 days? Comment Admitted on 07/25/25 - 07/26/25, discharged home. Prior Living House Arrangements Household Members significant other Type of Relies on Others transporation used prior to admit Independent with ADL Yes 's Is patient alert and Yes oriented? DME Already Rented / FWW / Walker Owned Patient/Family Home with Home Health Preference Comment TBD Discharge Plan Home with Home Health Transportation Partner Arrangement Referrals Initiated None needed Additional Comment Pt anticipates possible HH Review Status In Process Please Provide Date 08/13/25 Initial DC Assessment Was Performed Next Review Type Continued Stay Review
[2025-08-13] MEDS: metroNIDAZOLE 500 MG/100 ML PIGGYBACK 100 MG IV ×2 (13:59→21:52)
--- NOTE | 2025-08-13 14:34 | PC.NURSE ---
updated pt on assigned room to acute care unit, documented urine out, pt uses urinal in room independently, report given to acute care nurse
[2025-08-13] MEDS: SODIUM CHLORIDE 0.9% 1,000 ML 75 ML IV (15:51)
[2025-08-13] MEDS: CYCLOBENZAPRINE 10 MG TABLET PO (15:52)
[2025-08-13] MEDS: GABAPENTIN 600 MG TABLET 1200 MG PO ×2 (15:52→21:53)
--- NOTE | 2025-08-13 16:03 | P.HP_ITS ---
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 Patient began having chest pain that he said felt like pneumonia came to the emergency room for evaluation. Findings in the emergency room significant for a right lower lobe pneumonia as well as residual mild colitis. Patient was started on doxycycline and metronidazole for the pneumonia as well as additional coverage for C diff colitis. 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 Recent pulmonary embolus * On Eliquis History of myocarditis * No signs of complications Chronic pain syndrome * Continue medications DVT prophylaxis: * Covered with Eliquis Code status: * Full code blue Disposition: * Inpatient likely 2-3 days Time based billing: * 55 minutes were involved in the evaluation of this patient including [id number] evaluation physical examination review of extensive medical records review of objective laboratory and imaging findings including direct visualization of imaging and discussion with ER provider and care team on the floor [facility] Medical History Cold agglutinin disease C. 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 Iron deficiency anemia Chronic pain syndrome Cervical stenosis of spinal canal Hypertension Hyperlipidemia Varicose vein of leg Myocarditis Surgical History No pertinent past surgical history Social History marital status: unmarried,single household members: significant other lives independently: Yes occupational status: disabled alcohol intake: never substance use type: does not use Meds Home Medications and Allergies Home Medications ?Medication ?Instructions ?Recorded ?Confirmed ?Type epinephrine 0.3 mg/0.3 mL 0.3 mg (0.3 mL) IM SEE 07/1708/13/25 Rx injection, auto-injector (EpiPen INSTRUCTIONS #2 ea 2-Nura) spironolactone 25 mg tablet 25 mg PO BID 12/28/2310/07 History furosemide 40 mg tablet See Rx Instructions .Route 0 06/10/24 08/13/25 History .COMPLEX PRN Swelling albuterol sulfate 90 mcg/actuation See Rx Instructions .Route 01/31/25 08/13/25 Rx aerosol inhaler .COMPLEX #8.5 grams ferrous gluconate 324 mg (37.5 mg 324 mg PO DAILY #90 tabs 01/31/25 08/13/25 Rx iron) tablet finasteride 5 mg tablet 5 mg PO DAILY #90 tabs 01/3108/13/25 Rx cyclobenzaprine 10 mg tablet 10 mg PO TID PRN muscle s pasm #180 02/01/25 08/13/25 Rx tabs gabapentin 600 mg tablet 1,200 mg (2 x 600 mg) PO TID #240 02/27/25 08/13/25 Rx tabs amlodipine 10 mg tablet 10 mg PO DAILY #90 tabs 04/1408/13/25 Rx mometasone-formoterol HFA 200 See Rx Instructions .Rou te 05/07/25 08/13/25 Rx mcg-5 mcg/actuation aerosol .COMPLEX #13 grams inhaler (Dulera) nicotine 14 mg/24 hr daily 1 patch transdermal DAILY # 28 ea 05/16/25 08/13/25 Rx transdermal patch trazodone 150 mg tablet 150 mg PO BEDTIME PRN insomn ia #30 05/16/25 08/13/25 Rx tabs beclomethasone dipropionate 80 See Rx Instructions .Ro [place] .COMPLEX 05/18/25 08/13/25 History mcg/actuation HFA breath activated aerosol (Qvar RediHaler) tiotropium bromide 18 mcg capsule See Rx Instructions .Route .COMPLEX 05/18/25 08/13/25 History with inhalation device (Spiriva with HandiHaler) dapagliflozin propanediol 10 mg 10 mg PO DAILY 5 08/13/25 History tablet famotidine 20 mg tablet 20 mg PO BID 06/14/25 History apixaban 5 mg tablet (Eliquis) 5 mg PO BID #180 tabs 1 08/13/25 Rx venlafaxine 75 mg tablet,extended See Rx Instructions .Route 06/27/25 08/13/25 Rx release 24 hr .COMPLEX #90 tabs metformin 500 mg tablet See Rx Instructions .Route . COMPLEX 07/02/25 08/13/25 History prednisone 10 mg tablet 10 mg PO DAILY 07/02/2510/07 History tirzepatide 10 mg/0.5 mL 10 mg (0.5 mL) SUBCUT QWEEK #2 mL 07/02/25 08/13/25 Rx subcutaneous pen injector (Mounjaro) buprenorphine 2 mg-naloxone 0.5 mg See Rx Instructions buccal 07/05/25 08/13/25 Rx sublingual film (Suboxone) .COMPLEX #30 ea diazepam 2 mg tablet 4 mg (2 x 2 mg) PO BEDTIME P RN 07/20/25 08/13/25 Rx sleep #60 tabs losartan 100 mg tablet 50 mg PO DAILY 07/25/2510/07 History naloxone 4 mg/actuation nasal spray 1 spray intranasal 07/25/25 History glimepiride 4 mg tablet 4 mg PO DAILY #30 tabs 07/2608/13/25 Rx oxycodone-acetaminophen 10 mg-325 See Rx Instructions PO .COMPLEX 08/02/25 08/13/25 Rx mg tablet (Percocet) PRN pain #180 tabs Allergies Allergy/AdvReac Type Severity Reaction Status Date / Time Penicillins (PENICILLINS) Allergy Severe Facial/mouth Verified 08/13/25 16:04 numbness, mouth/lip swelling clindamycin Allergy Intermediate Verified 08/13/25 09:12 cephalexin (CEPHALEXIN) Allergy Mild FACIAL Verified 08/13/25 09:12 SWELLING terbinafine (TERBINAFINE) Allergy Unknown Unknown Verified 08/13/25 09:12 nut - unspecified Allergy Anaphylaxis Verified 08/13/25 09:12 benralizumab (From Fasenra) AdvReac Severe SOB Verified 08/13/25 09:12 Cephalosporins AdvReac Intermediate Vomiting Verified 08/13/25 09:12 (CEPHALOSPORINS) Beta-Blockers AdvReac Mild ASTHMA Verified 08/13/25 09:12 (Beta-Adrenergic Bloc nadolol (NADOLOL) AdvReac Mild AGGREVATES Verified 08/13/25 09:12 ASTHMA semaglutide (From Ozempic) AdvReac Mild CONSTIPATIO Verified 08/13/25 09:12 N Sulfa (Sulfonamide AdvReac Mild VOMITING Verified 08/13/25 09:12 Antibiotics) (SULFA (SULFONAMIDE ANTIBIOTICS)) Exam Vital Signs (past 8 hours): - 08/13/25 09:04 08/13/25 09:09 08/13/25 09:30 Temperature 98.7 F Pulse Rate 118 H 119 H 111 H Respiratory Rate 17 17 Blood Pressure 127/58 L Pulse Oximetry 98 92 92 Oxygen Delivery Method Room Air 08/13/25 09:35 08/13/25 09:35 08/13/25 10:16 Temperature Pulse Rate 114 H 108 H Respiratory Rate 20 Blood Pressure 124/68 Pulse Oximetry 96 Oxygen Delivery Method Room Air 08/13/25 10:17 08/13/25 10:17 08/13/25 10:30 Temperature Pulse Rate 108 H 104 H Respiratory Rate 22 16 Blood Pressure 101/60 Pulse Oximetry 93 Oxygen Delivery Method 08/13/25 10:30 08/13/25 11:08 08/13/25 11:09 Temperature Pulse Rate 108 H Respiratory Rate Blood Pressure 102/57 L 116/61 Pulse Oximetry 93 Oxygen Delivery Method Room Air 08/13/25 11:09 08/13/25 11:30 08/13/25 11:30 Temperature Pulse Rate 107 H 109 H Respiratory Rate 15 12 Blood Pressure 112/55 L Pulse Oximetry 93 93 Oxygen Delivery Method 08/13/25 12:00 08/13/25 12:00 08/13/25 12:30 Temperature Pulse Rate 101 H Respiratory Rate 14 Blood Pressure 111/64 103/56 L Pulse Oximetry 93 Oxygen Delivery Method 08/13/25 12:30 08/13/25 13:00 08/13/25 13:00 Temperature Pulse Rate 109 H 113 H Respiratory Rate 18 22 Blood Pressure 99/62 Pulse Oximetry 92 93 Oxygen Delivery Method 08/13/25 13:30 08/13/25 13:30 08/13/25 14:00 Temperature Pulse Rate 99 H Respiratory Rate 16 Blood Pressure 109/61 108/66 Pulse Oximetry 91 Oxygen Delivery Method 08/13/25 14:00 08/13/25 14:30 08/13/25 14:30 Temperature Pulse Rate 107 H 99 H Respiratory Rate 20 16 Blood Pressure 99/55 L Pulse Oximetry 94 95 Oxygen Delivery Method Oxygen Delivery Method Room Air Objective Labs 08/13/25 09:30 08/13/25 09:30 Labs: Laboratory Results - last 24 hr 08/13/25 08/13/25 08/13/25 09:30 09:35 10:15 WBC 13.2 H RBC 4.28 L Hgb 11.9 L Hct 36.3 L MCV 84.8 MCH 27.7 MCHC 32.7 RDW 15.7 H Plt Count 244 Neut % (Auto) 80.1 H Lymph % (Auto) 8.6 L [place] % (Auto) 10.0 Eos % (Auto) 0.9 L Baso % (Auto) 0.4 Neut # (Auto) 49921 H Lymph # (Auto) 1100 [place] # (Auto) 1300 H Eos # (Auto) 100 Baso # (Auto) 100 PT 16.2 H INR 1.4 H APTT 33 Sodium 130 L Potassium 4.2 Chloride 94 L Carbon Dioxide 25 BUN 44 H Creatinine 1.16 Estimated GFR > 60 BUN/Creatinine Ratio 37.9 H Glucose 208 H Lactate Calcium 7.8 L Magnesium 0.4 L* Total Bilirubin 0.5 AST 31 ALT 24 Alkaline Phosphatase 143 H Total Creatine Kinase < 20 L Troponin I 0.105 H NT-Pro-B Natriuret Pep 281 H Total Protein 7.0 Albumin 4.1 Globulin 2.9 Albumin/Globulin Ratio 1.4 Lipase 14 L Procalcitonin 0.757 H Ur Bilirubin Confirm Negative Chlamy pneumoniae PCR Adenovirus (PCR) B. pertussis DNA (PCR) B.parapertussis DNA PCR Coronavirus OC43 (PCR) Coronavirus HKU1 (PCR) Coronavirus 229E (PCR) SARS-CoV-2 (PCR) Coronavirus NL63 (PCR) Human Metapneumovir PCR Influenza Type A (PCR) Influenza Type B (PCR) M. pneumoniae (PCR) Parainfluenza 1 (PCR) Parainfluenza 2 (PCR) Parainfluenza 3 (PCR) Parainfluenza 4 (PCR) RSV (PCR) Entero/Rhino (PCR) 08/13/25 08/13/25 08/13/25 12:00 12:15 12:17 WBC RBC Hgb Hct MCV MCH MCHC RDW Plt Count Neut % (Auto) Lymph % (Auto) [place] % (Auto) Eos % (Auto) Baso % (Auto) Neut # (Auto) Lymph # (Auto) [place] # (Auto) Eos # (Auto) Baso # (Auto) PT INR APTT Sodium Potassium Chloride Carbon Dioxide BUN Creatinine Estimated GFR BUN/Creatinine Ratio Glucose Lactate 0.7 Calcium Magnesium Total Bilirubin AST ALT Alkaline Phosphatase Total Creatine Kinase < 20 L Troponin I 0.088 H NT-Pro-B Natriuret Pep Total Protein Albumin Globulin Albumin/Globulin Ratio Lipase Procalcitonin Ur Bilirubin Confirm Chlamy pneumoniae PCR Not detected Adenovirus (PCR) Not detected B. pertussis DNA (PCR) Not detected B.parapertussis DNA PCR Not detected Coronavirus OC43 (PCR) Not detected Coronavirus HKU1 (PCR) Not detected Coronavirus 229E (PCR) Not detected SARS-CoV-2 (PCR) Not detected Coronavirus NL63 (PCR) Not detected Human Metapneumovir PCR Not detected Influenza Type A (PCR) Not detected Influenza Type B (PCR) Not detected M. pneumoniae (PCR) Not detected Parainfluenza 1 (PCR) Not detected Parainfluenza 2 (PCR) Not detected Parainfluenza 3 (PCR) Not detected Parainfluenza 4 (PCR) Not detected RSV (PCR) Not detected Entero/Rhino (PCR) Not detected Assessment & Plan Time-Based Coding :: [TOTAL MINUTES] spent with patient and on the chart (including review of chart, obtaining history, exam, reviewing outside data, placing orders, documenting exam and treatment plan, and counseling patient) on [DATE]. Quality VTE Deep Vein Thrombosis/Pulmonary Embolism Present on Admission: No
[2025-08-13] MEDS: DOXYCYCLINE 100 MG in SODIUM CHLORIDE 0.9% 100 ML IV (16:06)
[2025-08-13] MEDS: VANCOMYCIN 125 MG CAPSULE PO ×2 (16:53→21:53)
[2025-08-13] MEDS: ALBUTEROL/IPRATROPIUM 3 ML AMPUL INH ×2 (18:55→23:01)
[2025-08-13] MEDS: BUDESONIDE 0.5 MG/2 ML NEB INH (18:55)
[2025-08-13] MEDS: FAMOTIDINE 20 MG TABLET PO (21:53)
[2025-08-13] MEDS: SPIRONOLACTONE 25 MG TABLET PO (21:53)
[2025-08-13] MEDS: APIXABAN 5 MG TABLET PO (21:53)
--- NOTE | 2025-08-14 02:50 | PC.NURSE ---
Patient is alert and oriented. Breath sounds CTA with RA sat of 92%; denies any SOB. HRR but tachy at 125 bpm. Complained of nausea so Dr. Belle contacted and order received for IV Zofran which he was given and had no further complaints as of this time. BT hypoactive but is passing gas. Has not, however, had a BM since 08/08. No bowel meds are ordered so provided with prune juice. Is voiding per urinal and denied any dysuria. Has been independent with mobility in the room. Pressure area on inner right thigh is intact but very reddened so encouraged him to change positions frequently but declines to lie in bed at night. Left LE is erythematous, swollen and warm to touch. Has firm nodules medially around knee and inner thigh. Complains of chronic neck pain and was medicated with Percocet. Refusing SCD's so reminded to ankle wave. Fall risk score is moderate. Currently on enteric precautions until able to reassess if still c-diff positive.
[2025-08-14] MEDS: DOXYCYCLINE 100 MG in SODIUM CHLORIDE 0.9% 100 ML IV (03:08)
[2025-08-14] MEDS: metroNIDAZOLE 500 MG/100 ML PIGGYBACK 100 MG IV (05:17)
[2025-08-14] MEDS: SODIUM CHLORIDE 0.9% 1,000 ML 75 ML IV (07:04)
[2025-08-14 08:00] VITALS: BP 103/58; PULSE 102; RESP 17; TEMP 36.9; O2SAT 95
[2025-08-14] MEDS: NICOTINE 14 PATCH 14 MG TOP (08:19)
[2025-08-14] MEDS: APIXABAN 5 MG TABLET PO (08:20)
[2025-08-14] MEDS: FINASTERIDE 5 MG TABLET PO (08:20)
[2025-08-14] MEDS: SPIRONOLACTONE 25 MG TABLET PO (08:20)
[2025-08-14] MEDS: VENLAFAXINE ER 75 MG CAP PO (08:20)
[2025-08-14] MEDS: FAMOTIDINE 20 MG TABLET PO (08:20)
[2025-08-14] MEDS: GABAPENTIN 600 MG TABLET 1200 MG PO (08:20)
[2025-08-14] MEDS: FERROUS SULFATE 325 MG TABLET PO (08:21)
[2025-08-14] MEDS: VANCOMYCIN 125 MG CAPSULE PO ×2 (08:21→12:24)
[2025-08-14 08:27] LABS: Add Manual Diff / Slide Review NO; Hematocrit 33.1 % (41-53); Hemoglobin 10.8 g/dL (13.5-17.5); Lymphocytes Absolute Auto 1600 /uL (1100-4500); Mean Corpuscular HGB Conc 32.5 % (30-36); Mean Corpuscular Hemoglobin 27.5 PG (26-34); Mean Corpuscular Volume 84.4 fL (80-100); Platelet Count 227 X10^3/uL (150-400)
[2025-08-14] MEDS: INSULIN LISPRO 100 UNIT/ML 3ML VIAL SUBCUT ×2 (08:29→12:25)
[2025-08-14 08:45] VITALS: PULSE 108; RESP 16; O2SAT 95
[2025-08-14] MEDS: ALBUTEROL/IPRATROPIUM 3 ML AMPUL INH (08:48)
[2025-08-14] MEDS: BUDESONIDE 0.5 MG/2 ML NEB INH (08:48)
[2025-08-14 09:02] LABS: Alanine Aminotransferase 16 IU/L (<50); Albumin 3.2 g/dL (3.5-5.0); Albumin Globulin Ratio 1.3 (1.0-2.8); Alkaline Phosphatase 118 U/L (38-126); Blood Urea Nitrogen 31 mg/dL (9-20); Calcium 7.9 mg/dL (8.4-10.2); Carbon Dioxide 25 mmol/L (22-32); Chloride 100 mmol/L (98-107); Estimated Glomerular Filt Rate > 60 mL/min (>60); Globulin 2.4 g/dL (1.7-4.1); Glucose 141 mg/dL (70-99); HEMOLYSIS < 15 (0-50); Potassium 4.0 mmol/L (3.4-5.1); Sodium 133 mmol/L (137-145); Total Protein 5.6 g/dL (6.3-8.2)
[2025-08-14 11:38] LABS: Clostridium difficile toxin AB Detected (Not Detect); Enteroaggregative E.coli Not Detected (Not Detect); Enteropathogenic E.coli Not Detected (Not Detect); Enterotoxigenic E.coli It/st Not Detected (Not Detect); Plesiomonsa shigelloides Not Detected (Not Detect); Shiga-like toxin-prod E.coli Not Detected (Not Detect)
[2025-08-14] MEDS: INFLUENZA VACCINE 0.5 ML SYRINGE IM (11:57)
--- NOTE | 2025-08-14 12:13 | P.DS_ITS ---
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 Patient began having chest pain that he said felt like pneumonia came to the emergency room for evaluation. Findings in the emergency room significant for a right lower lobe pneumonia as well as residual mild colitis. Patient was started on doxycycline and metronidazole for the pneumonia as well as additional coverage for C diff colitis. 08/14: Patient feels much better asking to go home. Patient discharged on the same medications as he was before except the Mounjaro has been discontinued and in addition 5 days of doxycycline 100 mg twice a day and 10 days of metronidazole 50 mg q.i.d. Review of systems: Palpitations syncope No urinary symptom No loss of consciousness Physical exam: HEENT unremarkable Lungs with few basilar crackles right Abdomen is distended but nontender Right lower extremity no edema Left covered and compression bandage Assessment and plan: Right lower lobe pneumonia * Multiple medication allergies so antibiotic shortness we will be doxycycline and metronidazole Clostridium difficile colitis: * Continue vancomycin * p.o. 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 [facility] Recent pulmonary embolus * On Eliquis History of myocarditis * No signs of complications Chronic pain syndrome * Continue medications DVT prophylaxis: * Covered with Eliquis Code status: * Full code blue Disposition: * patient improved much quicker than anticipated * discharge to home Time based billing: * 35 minutes were involved in the evaluation of this patient including [id number] evaluation physical examination review of extensive medical records review of objective laboratory and imaging findings including direct visualization of imaging and discussion with ER provider and care team on the floor Discharge Providers Provider Date of admission: 08/13/25 13:03 Discharge Date: 08/14/25 Primary care physician: Ricardo Victoria MD Discharge provider: Nicolás Rodriguez MD Exam Vital Signs (past 8 hours): - 08/14/25 08:00 08/14/25 08:45 Temperature 98.5 F Pulse Rate 102 H 108 H Respiratory Rate 17 16 Blood Pressure 103/58 L Pulse Oximetry 95 95 Oxygen Delivery Method Room Air Oxygen Flow Rate 0 95 Fraction of Inspired Oxygen 21 SaO2/FiO2 Ratio 461 Oxygen Delivery Method Room Air Oxygen Flow Rate 95 Objective Labs 08/14/25 08:18 08/14/25 08:18 Labs: Laboratory Results - last 24 hr 08/13/25 08/13/25 08/13/25 09:35 12:00 12:15 WBC RBC Hgb Hct MCV MCH MCHC RDW Plt Count Neut % (Auto) Lymph % (Auto) Barbour % (Auto) Eos % (Auto) Baso % (Auto) Neut # (Auto) Lymph # (Auto) Barbour # (Auto) Eos # (Auto) Baso # (Auto) Sodium Potassium Chloride Carbon Dioxide BUN Creatinine Estimated GFR BUN/Creatinine Ratio Glucose POC Whole Bld Glucose Lactate 0.7 Calcium Total Bilirubin AST ALT Alkaline Phosphatase Total Creatine Kinase < 20 L Troponin I 0.088 H Total Protein Albumin Globulin Albumin/Globulin Ratio Procalcitonin 0.757 H Chlamy pneumoniae PCR Adenovirus (PCR) B. pertussis DNA (PCR) B.parapertussis DNA PCR Coronavirus OC43 (PCR) Coronavirus HKU1 (PCR) Coronavirus 229E (PCR) SARS-CoV-2 (PCR) Coronavirus NL63 (PCR) Human Metapneumovir PCR Influenza Type A (PCR) Influenza Type B (PCR) M. pneumoniae (PCR) Parainfluenza 1 (PCR) Parainfluenza 2 (PCR) Parainfluenza 3 (PCR) Parainfluenza 4 (PCR) RSV (PCR) Entero/Rhino (PCR) 08/13/25 08/13/25 08/13/25 12:17 16:32 21:47 WBC RBC Hgb Hct MCV MCH MCHC RDW Plt Count Neut % (Auto) Lymph % (Auto) Barbour % (Auto) Eos % (Auto) Baso % (Auto) Neut # (Auto) Lymph # (Auto) Barbour # (Auto) Eos # (Auto) Baso # (Auto) Sodium Potassium Chloride Carbon Dioxide BUN Creatinine Estimated GFR BUN/Creatinine Ratio Glucose POC Whole Bld Glucose 186 H 142 H Lactate Calcium Total Bilirubin AST ALT Alkaline Phosphatase Total Creatine Kinase Troponin I Total Protein Albumin Globulin Albumin/Globulin Ratio Procalcitonin Chlamy pneumoniae PCR Not detected Adenovirus (PCR) Not detected B. pertussis DNA (PCR) Not detected B.parapertussis DNA PCR Not detected Coronavirus OC43 (PCR) Not detected Coronavirus HKU1 (PCR) Not detected Coronavirus 229E (PCR) Not detected SARS-CoV-2 (PCR) Not detected Coronavirus NL63 (PCR) Not detected Human Metapneumovir PCR Not detected Influenza Type A (PCR) Not detected Influenza Type B (PCR) Not detected M. pneumoniae (PCR) Not detected Parainfluenza 1 (PCR) Not detected Parainfluenza 2 (PCR) Not detected Parainfluenza 3 (PCR) Not detected Parainfluenza 4 (PCR) Not detected RSV (PCR) Not detected Entero/Rhino (PCR) Not detected 08/14/25 08/14/25 07:57 08:18 WBC 18.0 H RBC 3.92 L Hgb 10.8 L Hct 33.1 L MCV 84.4 MCH 27.5 MCHC 32.5 RDW 16.3 H Plt Count 227 Neut % (Auto) 76.0 H Lymph % (Auto) 8.9 L Barbour % (Auto) 13.9 Eos % (Auto) 0.9 L Baso % (Auto) 0.3 Neut # (Auto) 18468 H Lymph # (Auto) 1600 Barbour # (Auto) 2500 H Eos # (Auto) 200 Baso # (Auto) 0 Sodium 133 L Potassium 4.0 Chloride 100 Carbon Dioxide 25 BUN 31 H Creatinine 1.03 Estimated GFR > 60 BUN/Creatinine Ratio 30.1 H Glucose 141 H POC Whole Bld Glucose 141 H Lactate Calcium 7.9 L Total Bilirubin 0.2 AST 14 L ALT 16 Alkaline Phosphatase 118 Total Creatine Kinase Troponin I Total Protein 5.6 L Albumin 3.2 L Globulin 2.4 Albumin/Globulin Ratio 1.3 Procalcitonin Chlamy pneumoniae PCR Adenovirus (PCR) B. pertussis DNA (PCR) B.parapertussis DNA PCR Coronavirus OC43 (PCR) Coronavirus HKU1 (PCR) Coronavirus 229E (PCR) SARS-CoV-2 (PCR) Coronavirus NL63 (PCR) Human Metapneumovir PCR Influenza Type A (PCR) Influenza Type B (PCR) M. pneumoniae (PCR) Parainfluenza 1 (PCR) Parainfluenza 2 (PCR) Parainfluenza 3 (PCR) Parainfluenza 4 (PCR) RSV (PCR) Entero/Rhino (PCR) [facility] Medical History Cold agglutinin disease C. 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 Iron deficiency anemia Chronic pain syndrome Cervical stenosis of spinal canal Hypertension Hyperlipidemia Varicose vein of leg Myocarditis Surgical History No pertinent past surgical history Social History marital status: unmarried,single household members: significant other lives independently: Yes occupational status: disabled alcohol intake: never substance use type: does not use Discharge Plan Discharge Plan Patient Disposition: Home Discharge orders & Medications Prescriptions: New metronidazole 500 mg tablet 500 mg PO QID Qty: 40 0RF doxycycline hyclate 100 mg capsule 100 mg PO BID Qty: 10 0RF Continued trazodone 150 mg tablet 150 mg PO BEDTIME PRN (Reason: insomnia) Qty: 30 2RF nicotine 14 mg/24 hr patch 24 hour 1 patch transdermal DAILY Qty: 28 2RF Rx Instructions: remove one hour before bedtime venlafaxine 75 mg tablet extended release 24hr See Rx Instructions .ROUTE .COMPLEX Qty: 90 2RF Rx Instructions: Take one tablet by mouth every morning for one week, then increase to two tablets by mouth every morning for one week, then increase to three tablets by mouth every morning thereafter albuterol sulfate 90 mcg/actuation HFA aerosol inhaler See Rx Instructions .ROUTE .COMPLEX Qty: 8.5 5RF Dose Instruction: inhale 2 puffs by mouth every 6 hours if needed for shortness of breath or wheezing Rx Instructions: inhale 2 puffs by mouth every 6 hours if needed for shortness of breath or wheezing ferrous gluconate 324 mg (37.5 mg iron) tablet 324 mg PO DAILY Qty: 90 3RF finasteride 5 mg tablet 5 mg PO DAILY Qty: 90 1RF Rx Instructions: take 1 tablet by mouth once daily amlodipine 10 mg tablet 10 mg PO DAILY Qty: 90 1RF Rx Instructions: take 1 tablet by mouth once daily Dulera 200-5 mcg/actuation HFA aerosol inhaler See Rx Instructions .ROUTE .COMPLEX Qty: 13 6RF Dose Instruction: inhale 2 puffs by mouth and INTO THE LUNGS twice a day Rx Instructions: inhale 2 puffs by mouth and INTO THE LUNGS twice a day buprenorphine-naloxone [Suboxone] 2-0.5 mg film See Rx Instructions buccal .COMPLEX Qty: 30 0RF Rx Instructions: place 1/2 strip/tab under side of tongue three times daily until you see provider. Patient under close supervision of PCP, specialist, and bottle caser diazepam 2 mg tablet 4 mg PO BEDTIME PRN (Reason: sleep) Qty: 60 1RF oxycodone-acetaminophen [Percocet] 10-325 mg tablet See Rx Instructions PO .COMPLEX PRN (Reason: pain) Qty: 180 0RF Rx Instructions: take 2 tablets by mouth every 4 hours if needed for pain. epinephrine [EpiPen 2-Nura] 0.3 mg/0.3 mL auto-injector 0.3 mg IM SEE INSTRUCTIONS Qty: 2 5RF spironolactone 25 mg tablet 25 mg PO BID cyclobenzaprine 10 mg tablet 10 mg PO TID PRN (Reason: muscle spasm) Qty: 180 3RF Rx Instructions: take 1 tablet by mouth three times a day if needed for SPASM(S) gabapentin 600 mg tablet 1,200 mg PO TID Qty: 240 3RF famotidine 20 mg tablet 20 mg PO BID dapagliflozin propanediol 10 mg tablet 10 mg PO DAILY Eliquis 5 mg tablet 5 mg PO BID Qty: 180 0RF losartan 100 mg tablet 50 mg PO DAILY naloxone 4 mg/actuation spray,non-aerosol 1 spray intranasal glimepiride 4 mg tablet 4 mg PO DAILY Qty: 30 0RF furosemide 40 mg tablet See Rx Instructions .ROUTE .COMPLEX PRN (Reason: Swelling) Rx Instructions: 1-2 tabs as needed for swelling tiotropium bromide [Spiriva with HandiHaler] 18 mcg capsule, w/inhalation device See Rx Instructions .ROUTE .COMPLEX Rx Instructions: inhale THE contents of 1 capsule in THE HANDIHALER once daily x2 puffs am and x2 puffs hs Qvar RediHaler 80 mcg/actuation HFA aerosol breath activated See Rx Instructions .ROUTE .COMPLEX Rx Instructions: inhale 2 puff by mouth every 12 hours metformin 500 mg tablet See Rx Instructions .ROUTE .COMPLEX Patient Comments: three tablets in the a.m. Rx Instructions: take 2 tablets by mouth 1700 prednisone 10 mg tablet 10 mg PO DAILY Discontinued Mounjaro 10 mg/0.5 mL pen injector 10 mg SUBCUT QWEEK Qty: 2 0RF Rx Instructions: take for 4 weeks then switch to 12.5mg dosage Follow up/Referrals: Ricardo Victoria MD [Primary Care Provider, Family Practice] Visit Report/Discharge Packet Stand Alone Forms: Patient Portal/API, Stroke Signs & Symptoms Discharge Data Primary Care Provider: Ricardo Victoria Quality VTE Deep Vein Thrombosis/Pulmonary Embolism Present on Admission: No
--- NOTE | 2025-08-14 13:00 | CM.DPNOTE ---
DCP Continued: Reviewed EMR and team rounds for pt?s medical status. Per hospitalist, pt made significant progress and will dc home. [employer]S ATTORNEY entered room, discussed dc plans with pt. Pt feels comfortable with discharge with partner, declined any other dc needs. Pt to coordinate having caregivers return to home if cleared of C-Diff. Plan: Anticipating discharge home with partner to transport on 08/14. No CM needs identified. CM Team will continue to follow for coordination of discharge plans. SANGEETA Victor
--- NOTE | 2025-08-14 13:10 | PC.NURSE ---
Pt is dressed and ready for discharge home with Partner. IV has been removed. Went over d/c instructions with Pt-discussed d/c meds, time of last dose, reviewed stroke education, encouraged Pt to drink plenty of fluids to prevent constipation or dehydration. Reminded Pt to take his full course of abx as prescribed. Pt denied further questions and was taken out via w/c by [employer] to POV with all belongings.
== END 2025-08-14 13:14 | disposition home or self-care (01) | DRG 139 ==
LOC: ED 12:25 → AC 13:03
PROVIDERS: Admitting Provider Internal Medicine; Emergency Provider Emergency Medicine; PCP Family Medicine; Visit Provider Internal Medicine
DX: J18.9 Pneumonia, unspecified organism (principal); A04.72 Enterocolitis due to Clostridium difficile, not specified as recurrent; E11.9 Type 2 diabetes mellitus without complications; D59.12 Cold autoimmune hemolytic anemia; G89.4 Chronic pain syndrome; G47.00 Insomnia, unspecified; F41.1 Generalized anxiety disorder; I10 Essential (primary) hypertension; E78.5 Hyperlipidemia, unspecified; Z79.84 Long term (current) use of oral hypoglycemic drugs; Z86.79 Personal history of other diseases of the circulatory system; Z86.711 Personal history of pulmonary embolism; Z79.01 Long term (current) use of anticoagulants; Z79.52 Long term (current) use of systemic steroids; Z87.891 Personal history of nicotine dependence
CPT/HCPCS: 36415; 71045; 71275; 74177; 80053; 81003; 82550; 82962; 83605; 83690; 83735; 83880; 84145; 84484; 85025; 85610; 85730; 87040; 87324; 87507; 87633; 90471; 90656; 93005; 94640; 96365; 96366; 96367; 96375; 99284; A9270; J1815; J2272; J2405; J2470; J3475; J7030; J7050; Q2038; Q9967

== ENCOUNTER 2025-08-20 10:37 | Emergency (ER) | payer OTHER, SELFPAY ==
[2025-05-23 17:12] VITALS: PULSE 106; RESP 24; O2SAT 94
[2025-08-13 15:19] VITALS: BMI 35.2
[2025-08-20 10:47] VITALS: BP 124/62; PULSE 110; RESP 22; TEMP 36.6; O2SAT 98; BMI 35.9
--- NOTE | 2025-08-20 11:08 | EKG_ITS ---
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
--- NOTE | 2025-08-20 11:17 | ED_ITS ---
HPI - Nausea/Vomiting/Diarrhea General Chief complaint: Nausea/Vomiting/Diarrhea Stated complaint: Chest pain, intestinal pain 6 days Time Seen by Provider: 08/20/25 11:08 Source: patient Mode of arrival: Wheelchair History of Present Illness HPI Narrative: Patient is still on Flagyl. Not on doxycycline anymore. Patient discharge here 6 days ago for pneumonia and colitis. 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 Patient was seen at [facility] recently for complicated pneumonia. Was discharged home and developed C diff and was admitted to [facility]. I saw patient here 7 days ago and admitted for pneumonia and colitis. Patient was discharged home on Flagyl and doxycycline. Patient continues to have watery diarrhea. Has left upper quadrant/chest pain. Left-sided chest pain at the base. Patient had pneumonia seen on CT angiogram chest 7 days ago. Patient in no distress. Related Data Home Medications ?Medication ?Instructions ?Recorded ?Confirmed spironolactone 25 mg tablet 25 mg PO BID 12/28/2310/07 furosemide 40 mg tablet See Rx Instructions .Route 0 06/10/24 08/13/25 .COMPLEX PRN Swelling beclomethasone dipropionate 80 See Rx Instructions .Ro radha .COMPLEX 05/18/25 08/13/25 mcg/actuation HFA breath activated aerosol (Qvar RediHaler) tiotropium bromide 18 mcg capsule See Rx Instructions .Route .COMPLEX 05/18/25 08/13/25 with inhalation device (Spiriva with HandiHaler) dapagliflozin propanediol 10 mg 10 mg PO DAILY 5 08/13/25 tablet famotidine 20 mg tablet 20 mg PO BID 06/14/25 metformin 500 mg tablet See Rx Instructions .Route . COMPLEX 07/02/25 08/13/25 prednisone 10 mg tablet 10 mg PO DAILY 07/02/2510/07 losartan 100 mg tablet 50 mg PO DAILY 07/25/2510/07 naloxone 4 mg/actuation nasal spray 1 spray intranasal 07/25/25 Previous Rx's ?Medication ?Instructions ?Recorded epinephrine 0.3 mg/0.3 mL 0.3 mg (0.3 mL) IM SEE 07/17 injection, auto-injector (EpiPen INSTRUCTIONS #2 ea 2-Nura) albuterol sulfate 90 mcg/actuation See Rx Instructions .Route 01/31/25 aerosol inhaler .COMPLEX #8.5 grams ferrous gluconate 324 mg (37.5 mg 324 mg PO DAILY #90 tabs 01/31/25 iron) tablet finasteride 5 mg tablet 5 mg PO DAILY #90 tabs 01/31 cyclobenzaprine 10 mg tablet 10 mg PO TID PRN muscle s pasm #180 02/01/25 tabs gabapentin 600 mg tablet 1,200 mg (2 x 600 mg) PO TID #240 02/27/25 tabs amlodipine 10 mg tablet 10 mg PO DAILY #90 tabs 04/14 02/04 mometasone-formoterol HFA 200 See Rx Instructions .Rou te 05/07/25 mcg-5 mcg/actuation aerosol .COMPLEX #13 grams inhaler (Dulera) nicotine 14 mg/24 hr daily 1 patch transdermal DAILY # 28 ea 05/16/25 transdermal patch trazodone 150 mg tablet 150 mg PO BEDTIME PRN insomn ia #30 05/16/25 tabs apixaban 5 mg tablet (Eliquis) 5 mg PO BID #180 tabs 1 venlafaxine 75 mg tablet,extended See Rx Instructions .Route 06/27/25 release 24 hr .COMPLEX #90 tabs buprenorphine 2 mg-naloxone 0.5 mg See Rx Instructions buccal 07/05/25 sublingual film (Suboxone) .COMPLEX #30 ea diazepam 2 mg tablet 4 mg (2 x 2 mg) PO BEDTIME P RN 07/20/25 sleep #60 tabs glimepiride 4 mg tablet 4 mg PO DAILY #30 tabs 07/26 oxycodone-acetaminophen 10 mg-325 See Rx Instructions PO .COMPLEX 08/02/25 mg tablet (Percocet) PRN pain #180 tabs doxycycline hyclate 100 mg capsule 100 mg PO BID #10 c aps 08/14/25 metronidazole 500 mg tablet 500 mg PO QID #40 tabs 11/07 ondansetron 4 mg disintegrating 4 mg PO Q6H PRN nausea and 08/20/25 tablet vomiting #20 tabs Allergies Allergy/AdvReac Type Severity Reaction Status Date / Time Penicillins (PENICILLINS) Allergy Severe Facial/mouth Verified 08/20/25 10:51 numbness, mouth/lip swelling clindamycin Allergy Intermediate Verified 08/20/25 10:51 cephalexin (CEPHALEXIN) Allergy Mild FACIAL Verified 08/20/25 10:51 SWELLING terbinafine (TERBINAFINE) Allergy Unknown Unknown Verified 08/20/25 10:51 nut - unspecified Allergy Anaphylaxis Verified 08/20/25 10:51 benralizumab (From Fasenra) AdvReac Severe SOB Verified 08/20/25 10:51 Cephalosporins AdvReac Intermediate Vomiting Verified 08/20/25 10:51 (CEPHALOSPORINS) Beta-Blockers AdvReac Mild ASTHMA Verified 08/20/25 10:51 (Beta-Adrenergic Bloc nadolol (NADOLOL) AdvReac Mild AGGREVATES Verified 08/20/25 10:51 ASTHMA semaglutide (From Ozempic) AdvReac Mild CONSTIPATIO Verified 08/20/25 10:51 N Sulfa (Sulfonamide AdvReac Mild VOMITING Verified 08/20/25 10:51 Antibiotics) (SULFA (SULFONAMIDE ANTIBIOTICS)) Review of Systems Review of Systems Narrative: GENERAL: Negative chills, fatigue, malaise, fever, sweats. HEENT: Negative sinus pain, ear pain, sore throat RESPIRATORY: Negative dyspnea, cough CARDIOVASCULAR: Negative chest pain, palpitations GASTROINTESTINAL: Negative vomiting, nausea, positive diarrhea and abdominal pain : Negative dysuria, frequency, hematuria MUSCULOSKELETAL: Negative muscle or bony pain SKIN: Negative rash, skin lesions NEUROLOGIC: Negative weakness, numbness ROS Unobtainable: All systems reviewed & are unremarkable except as noted in HPI and below Patient History Medical History Cold agglutinin disease C. 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 EYES: Pupils equal round ENT: Mucous membranes moist. NECK: Trachea midline. CARDIOVASCULAR: Regular rate and rhythm RESPIRATORY: Clear to auscultation. Breath sounds equal bilaterally. No wheezes, rales, or rhonchi. GASTROINTESTINAL: Abdomen soft, reproducible right lower quadrant tenderness as well as left upper quadrant tenderness., bowel sounds are present. No peritoneal signs guarding or rebound. BACK: No flank tenderness. EXTREMITIES: No gross deformities. NEURO: AOx4. Clear speech SKIN: Warm and dry PSYCH: Not anxious, is cooperative Initial Vital Signs Initial Vital Signs: Vital Signs Temperature 98 F 08/20/25 10:47 Pulse Rate 110 H 08/20/25 10:47 Respiratory Rate 22 08/20/25 10:47 Blood Pressure 124/62 08/20/25 10:47 Pulse Oximetry 98 08/20/25 10:47 Oxygen Delivery Method Room Air 08/20/25 10:47 Course Orders Ordered: Discontinued Medications Sodium Chloride (Normal Saline 0.9%) 1,000 mls @ 1,000 mls/hr IV BOLUS ONE Stop: 08/20/25 12:26 Last Infusion: 08/20/25 13:07 Dose: Infused Documented By: Admin: 08/20/25 11:33 Dose: 1,000 mls/hr Documented By: BERTA Calcium Gluconate 9.3 meq/ (Sodium Chloride) 70 mls @ 140 mls/hr IV NOW ONE Stop: 08/20/25 12:10 Last Infusion: 08/20/25 13:07 Dose: Infused Documented By: Admin: 08/20/25 12:15 Dose: 140 mls/hr Documented By: JACKIE Ondansetron HCl (Ondansetron 4 Mg/2 Ml Inj) 4 mg IV NOW PRN PRN Reason: Nausea And Vomiting Last Admin: 08/20/25 11:55 Dose: 4 mg Documented By: JACKIE Ondansetron HCl (Ondansetron 4 Mg Odt) 4 mg PO NOW PRN PRN Reason: Nausea And Vomiting Vital Signs Vital signs: Vital Signs - 8 hr 08/20/25 10:47 08/20/25 15:10 Temperature 98 F Pulse Rate 110 H 101 H Respiratory Rate 22 22 Blood Pressure 124/62 129/58 L Pulse Oximetry 98 95 Oxygen Delivery Method Room Air Room Air MDM - Nausea/Vomiting/Diarrhea Lab Data 08/20/25 11:15 12 14:47 Labs: Lab Results 08/20/25 08/20/25 Range/Units 11:15 14:47 WBC 19.7 H (4.5-11.0) X10^3/uL RBC 4.14 L (4.5-5.9) X10^6/uL Hgb 11.6 L (13.5-17.5) g/dL Hct 35.0 L (41-53) % MCV 84.3 (80-100) fL MCH 28.0 (26-34) PG MCHC 33.2 (30-36) % RDW 16.4 H (11.6-14.8) % Plt Count 265 (150-400) X10^3/uL Neut % (Auto) Not Reportable Lymph % (Auto) Not Reportable [place] % (Auto) Not Reportable Eos % (Auto) Not Reportable Baso % (Auto) Not Reportable Lymph # (Auto) Not Reportable [place] # (Auto) Not Reportable Baso # (Auto) Not Reportable Total Counted 100 Seg Neutrophils % 88.0 H (38-70) % Band Neutrophils % 2.0 L (3-7) % Lymphocytes % (Manual) 6.0 L (25-45) % Monocytes % (Manual) 4.0 (2-11) % Neutrophils # (Manual) 46564 H (5711-2743) /uL RBC Morphology Normal morphology Sodium 132 L 134 L (137-145) mmol/L Potassium 4.2 4.0 (3.4-5.1) mmol/L Chloride 98 101 (98-107) mmol/L Carbon Dioxide 22 24 (22-32) mmol/L BUN 34 H 29 H (9-20) mg/dL Creatinine 0.93 0.84 (0.66-1.25) mg/dL Estimated GFR > 60 > 60 (>60) mL/min BUN/Creatinine Ratio 36.6 H 34.5 H (6-22) Glucose 301 H D 201 H D (70-99) mg/dL Calcium 6.3 L* 6.6 L (8.4-10.2) mg/dL Total Bilirubin 0.3 0.2 (0.2-1.3) mg/dL AST 26 20 (17-59) IU/L ALT 17 16 (<50) IU/L Alkaline Phosphatase 73 77 (38-126) U/L Total Protein 6.3 6.0 L (6.3-8.2) g/dL Albumin 3.6 3.4 L (3.5-5.0) g/dL Globulin 2.7 2.6 (1.7-4.1) g/dL Albumin/Globulin Ratio 1.3 1.3 (1.0-2.8) Lipase 35 D (23-300) U/L Imaging Data CT chest abdomen pelvis: Radiologist's Impression: [address] [address] [address] Scan Report Signed Patient: Bandar George MR#: [id number] : 1970 Acct:[id number] Age/Sex: 55 / M Date of Service: 08/20/25 Loc: ED Accession Number: [id number] Procedure: CT chest abd pel wo con Ordering Provider: Aldo Lee MD PROCEDURE: CT CHEST ABD PEL WO CON INDICATIONS: Left chest pain right lower quadrant pain TECHNIQUE: After the administration of oral contrast, 5 mm thick sections acquired from the lung apices to the symphysis pubis. 5 mm thick coronal and sagittal reformats acquired, with additional 7 mm coronal MIP reformats through the lungs. For radiation dose reduction, the following was used: automated exposure control, adjustment of mA and/or kV according to patient size. COMPARISON: [facility], CT, CT ANGIO CHEST PE PROTOCOL, 08/13/2025, 11:00. [facility], CT, CT ABDOMEN PELVIS W CON, 08/13/2025, 9:48. FINDINGS: Image quality: Diagnostic Lungs and pleura: Mild diffuse bronchial wall thickening and mosaic attenuation. Prior consolidation in the left lower lobe is decreased. More focal probable thick atelectasis is seen at the left costophrenic angle. Mild emphysema at the lung apices. No pleural effusions. Mediastinum, heart, and esophagus: Granulomatous calcified lymph nodes are present as before. No enlarged noncalcified lymph nodes by size criteria. Prominent mediastinal lymph nodes are again seen, particularly in the pre-vascular region in AP window, nonspecific and possibly reactive. Prominent mediastinal vasculature also again seen. Unremarkable CT appearance of the esophagus. Mild cardiomegaly. Suspect coronary calcifications and aortic annulus calcifications. Borderline ectatic ascending aorta measuring 3.9 cm Chest wall and thyroid: Unremarkable Liver: No contour deforming mass. Left lobe hypertrophy is seen suggestive of chronic liver disease. Borderline hepatomegaly. Gallbladder and biliary system: Unremarkable, nondilated Pancreas: Gnsj-ih-nbdjponh parenchymal atrophy. No ductal dilation Spleen: Nonenlarged Adrenals: No discrete nodules Kidneys: Lobulated contour of the kidney, poorly assessed on this study without IV contrast. Possible cysts are present. Vessels and lymph nodes: Mild aortoiliac atherosclerotic calcifications. No lymphadenopathy by size criteria. Prominent inguinal lymph nodes again seen, nonspecific, possibly reactive. Adjacent prominent vasculature also seen. Bowel and peritoneum: No bowel obstruction. No drainable abscess or ascites. There is increased colonic fecal loading. Mild edematous fat stranding is seen surrounding the mid and proximal colon. Mild wall thickening also seen in the distal colon and rectum. Trace pelvic free fluid. Body wall: Unremarkable Pelvis: Mild bladder wall thickening, nonspecific. Prostate bed is unremarkable on limited non-contrast CT evaluation Bones: No aggressive appearing osseous abnormality. IMPRESSION: Left lower lobe region of pneumonia is resolved. Mild persistent diffuse bronchial wall thickening and parenchymal mosaic attenuation, which likely represent bronchitis and bronchiolitis. Focal probable segmental atelectasis/scarring again seen at the left costophrenic angle. Coronary calcifications. Cardiomegaly. Ectatic ascending aorta. Mild findings of colitis, similar to slightly decreased from prior. No bowel obstruction. Trace pelvic free fluid, nonspecific. Mild bladder wall thickening, correlate urinalysis. Many other incidental findings above on this noncontrast imaging. Dictated by: Hernán Kerr M.D. on 08/20/2025 at 11:54 Approved by: Hernán Kerr M.D. on 08/20/2025 at 12:03 [facility] Narrative Medical decision making narrative: Patient is still on Flagyl. Not on doxycycline anymore. Patient discharge here 6 days ago for pneumonia and colitis. 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 Patient was seen at [facility] recently for complicated pneumonia. Was discharged home and developed C diff and was admitted to [facility]. I saw patient here 7 days ago and admitted for pneumonia and colitis. Patient was discharged home on Flagyl and doxycycline. Patient continues to have watery diarrhea. Has left upper quadrant/chest pain. Left-sided chest pain at the base. Patient had pneumonia seen on CT angiogram chest 7 days ago. Patient in no distress. MDM After history and exam, CBC CMP lipase lactic acid procalcitonin CT chest abdomen pelvis normal saline respiratory panel GI panel EKG troponin normal saline Differential considered: Includes but not limited to recurrent colitis, pneumonia dehydration Medical records reviewed: Discharge summary from this hospital August 14, 2025 Lab Test results independently reviewed as above. Pertinent findings: WBC 19.7 hemoglobin 11.6 neutrophils 88 bands 2 sodium 132 potassium 4.2 calcium 6.3 Independently reviewed EKG sinus tachycardia rate [address]-elevation or depression Imaging studies independently reviewed: CT abdomen pelvis and chest, resolved pneumonia. Improved colitis. Consultations: None indicated at this time Re-evaluations: 2:39 p.m.. Reviewed results with patient. Patient states he feels much better. Does not want to be admitted or transferred. 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 He does not want to be admitted or transferred. He does agree for repeat calcium levels and prescription for Zofran and discharged home. 3:28 p.m.. Patient does not want anymore IV calcium. He desires discharge home. Repeat calcium 6.6. He states he will take calcium supplements at home. He desires discharge home. Discussion: Appropriate for discharge home. Exam is reassuring. Return precautions reviewed patient. Patient has a baseline leukocytosis. Feeling much better no fever here. Return precautions reviewed. He desires discharge home. Diagnosis: Colitis Discharge Plan Departure Patient Disposition: Home Clinical Impression: Colitis Abdominal pain Qualifiers: Abdominal location: unspecified location Qualified Code(s): R10.9 - Unspecified abdominal pain Instructions: DI for Abdominal Pain-Adult, DI for Colitis Activity Restrictions/Additional Instructions: I am glad you are feeling better. Please see your family doctor within a week for re-evaluation. Prescription for nausea medication has been sent to your pharmacy to strip picker and continue tonight. Return if worse if any questions or concerns. Prescriptions: New ondansetron 4 mg tablet,disintegrating 4 mg PO Q6H PRN (Reason: nausea and vomiting) Qty: 20 0RF No Action trazodone 150 mg tablet 150 mg PO BEDTIME PRN (Reason: insomnia) Qty: 30 2RF nicotine 14 mg/24 hr patch 24 hour 1 patch transdermal DAILY Qty: 28 2RF Rx Instructions: remove one hour before bedtime venlafaxine 75 mg tablet extended release 24hr See Rx Instructions .ROUTE .COMPLEX Qty: 90 2RF Rx Instructions: Take one tablet by mouth every morning for one week, then increase to two tablets by mouth every morning for one week, then increase to three tablets by mouth every morning thereafter albuterol sulfate 90 mcg/actuation HFA aerosol inhaler See Rx Instructions .ROUTE .COMPLEX Qty: 8.5 5RF Dose Instruction: inhale 2 puffs by mouth every 6 hours if needed for shortness of breath or wheezing Rx Instructions: inhale 2 puffs by mouth every 6 hours if needed for shortness of breath or wheezing ferrous gluconate 324 mg (37.5 mg iron) tablet 324 mg PO DAILY Qty: 90 3RF finasteride 5 mg tablet 5 mg PO DAILY Qty: 90 1RF Rx Instructions: take 1 tablet by mouth once daily amlodipine 10 mg tablet 10 mg PO DAILY Qty: 90 1RF Rx Instructions: take 1 tablet by mouth once daily Dulera 200-5 mcg/actuation HFA aerosol inhaler See Rx Instructions .ROUTE .COMPLEX Qty: 13 6RF Dose Instruction: inhale 2 puffs by mouth and INTO THE LUNGS twice a day Rx Instructions: inhale 2 puffs by mouth and INTO THE LUNGS twice a day buprenorphine-naloxone [Suboxone] 2-0.5 mg film See Rx Instructions buccal .COMPLEX Qty: 30 0RF Rx Instructions: place 1/2 strip/tab under side of tongue three times daily until you see provider. Patient under close supervision of PCP, specialist, and telephonic case manager diazepam 2 mg tablet 4 mg PO BEDTIME PRN (Reason: sleep) Qty: 60 1RF oxycodone-acetaminophen [Percocet] 10-325 mg tablet See Rx Instructions PO .COMPLEX PRN (Reason: pain) Qty: 180 0RF Rx Instructions: take 2 tablets by mouth every 4 hours if needed for pain. epinephrine [EpiPen 2-Nura] 0.3 mg/0.3 mL auto-injector 0.3 mg IM SEE INSTRUCTIONS Qty: 2 5RF spironolactone 25 mg tablet 25 mg PO BID cyclobenzaprine 10 mg tablet 10 mg PO TID PRN (Reason: muscle spasm) Qty: 180 3RF Rx Instructions: take 1 tablet by mouth three times a day if needed for SPASM(S) gabapentin 600 mg tablet 1,200 mg PO TID Qty: 240 3RF famotidine 20 mg tablet 20 mg PO BID dapagliflozin propanediol 10 mg tablet 10 mg PO DAILY Eliquis 5 mg tablet 5 mg PO BID Qty: 180 0RF losartan 100 mg tablet 50 mg PO DAILY naloxone 4 mg/actuation spray,non-aerosol 1 spray intranasal glimepiride 4 mg tablet 4 mg PO DAILY Qty: 30 0RF metronidazole 500 mg tablet 500 mg PO QID Qty: 40 0RF doxycycline hyclate 100 mg capsule 100 mg PO BID Qty: 10 0RF furosemide 40 mg tablet See Rx Instructions .ROUTE .COMPLEX PRN (Reason: Swelling) Rx Instructions: 1-2 tabs as needed for swelling tiotropium bromide [Spiriva with HandiHaler] 18 mcg capsule, w/inhalation device See Rx Instructions .ROUTE .COMPLEX Rx Instructions: inhale THE contents of 1 capsule in THE HANDIHALER once daily x2 puffs am and x2 puffs hs Qvar RediHaler 80 mcg/actuation HFA aerosol breath activated See Rx Instructions .ROUTE .COMPLEX Rx Instructions: inhale 2 puff by mouth every 12 hours metformin 500 mg tablet See Rx Instructions .ROUTE .COMPLEX Patient Comments: three tablets in the a.m. Rx Instructions: take 2 tablets by mouth 1700 prednisone 10 mg tablet 10 mg PO DAILY Referrals: Ricardo Victoria MD [Primary Care Provider, Family Practice] Stand Alone Forms: Patient Portal/API
[2025-08-20 11:26] LABS: Add Manual Diff / Slide Review YES; Hematocrit 35.0 % (41-53); Hemoglobin 11.6 g/dL (13.5-17.5); Mean Corpuscular HGB Conc 33.2 % (30-36); Mean Corpuscular Hemoglobin 28.0 PG (26-34); Mean Corpuscular Volume 84.3 fL (80-100); Platelet Count 265 X10^3/uL (150-400)
--- NOTE | 2025-08-20 11:27 | DI.CT.S_ITS ---
PROCEDURE: CT CHEST ABD PEL WO CON INDICATIONS: Left chest pain right lower quadrant pain TECHNIQUE: After the administration of oral contrast, 5 mm thick sections acquired from the lung apices to the symphysis pubis. 5 mm thick coronal and sagittal reformats acquired, with additional 7 mm coronal MIP reformats through the lungs. For radiation dose reduction, the following was used: automated exposure control, adjustment of mA and/or kV according to patient size. COMPARISON: [facility], CT, CT ANGIO CHEST PE PROTOCOL, 08/13/2025, 11:00. [facility], CT, CT ABDOMEN PELVIS W CON, 08/13/2025, 9:48. FINDINGS: Image quality: Diagnostic Lungs and pleura: Mild diffuse bronchial wall thickening and mosaic attenuation. Prior consolidation in the left lower lobe is decreased. More focal probable thick atelectasis is seen at the left costophrenic angle. Mild emphysema at the lung apices. No pleural effusions. Mediastinum, heart, and esophagus: Granulomatous calcified lymph nodes are present as before. No enlarged noncalcified lymph nodes by size criteria. Prominent mediastinal lymph nodes are again seen, particularly in the pre-vascular region in AP window, nonspecific and possibly reactive. Prominent mediastinal vasculature also again seen. Unremarkable CT appearance of the esophagus. Mild cardiomegaly. Suspect coronary calcifications and aortic annulus calcifications. Borderline ectatic ascending aorta measuring 3.9 cm Chest wall and thyroid: Unremarkable Liver: No contour deforming mass. Left lobe hypertrophy is seen suggestive of chronic liver disease. Borderline hepatomegaly. Gallbladder and biliary system: Unremarkable, nondilated Pancreas: Nwnc-so-tsprwble parenchymal atrophy. No ductal dilation Spleen: Nonenlarged Adrenals: No discrete nodules Kidneys: Lobulated contour of the kidney, poorly assessed on this study without IV contrast. Possible cysts are present. Vessels and lymph nodes: Mild aortoiliac atherosclerotic calcifications. No lymphadenopathy by size criteria. Prominent inguinal lymph nodes again seen, nonspecific, possibly reactive. Adjacent prominent vasculature also seen. Bowel and peritoneum: No bowel obstruction. No drainable abscess or ascites. There is increased colonic fecal loading. Mild edematous fat stranding is seen surrounding the mid and proximal colon. Mild wall thickening also seen in the distal colon and rectum. Trace pelvic free fluid. Body wall: Unremarkable Pelvis: Mild bladder wall thickening, nonspecific. Prostate bed is unremarkable on limited non-contrast CT evaluation Bones: No aggressive appearing osseous abnormality. IMPRESSION: Left lower lobe region of pneumonia is resolved. Mild persistent diffuse bronchial wall thickening and parenchymal mosaic attenuation, which likely represent bronchitis and bronchiolitis. Focal probable segmental atelectasis/scarring again seen at the left costophrenic angle. Coronary calcifications. Cardiomegaly. Ectatic ascending aorta. Mild findings of colitis, similar to slightly decreased from prior. No bowel obstruction. Trace pelvic free fluid, nonspecific. Mild bladder wall thickening, correlate urinalysis. Many other incidental findings above on this noncontrast imaging. Dictated by: Hernán Kerr M.D. on 08/20/2025 at 11:54 Approved by: Hernán Kerr M.D. on 08/20/2025 at 12:03
[2025-08-20] MEDS: SODIUM CHLORIDE 0.9% 1,000 ML 1000 ML IV (11:33)
[2025-08-20 11:36] LABS: Band Neutrophils Percent 2.0 % (3-7); Lymphocytes Percent Manual 6.0 % (25-45); Monocytes Percent Manual 4.0 % (2-11); Neutrophils Absolute Manual 17730 /uL (3000-5900); RBC Morphology Normal Morphology; Segmented Neutrophils Percent 88.0 % (38-70); Total Cells Counted 100
[2025-08-20 11:37] LABS: Alanine Aminotransferase 17 IU/L (<50); Albumin 3.6 g/dL (3.5-5.0); Albumin Globulin Ratio 1.3 (1.0-2.8); Alkaline Phosphatase 73 U/L (38-126); Blood Urea Nitrogen 34 mg/dL (9-20); Carbon Dioxide 22 mmol/L (22-32); Chloride 98 mmol/L (98-107); Estimated Glomerular Filt Rate > 60 mL/min (>60); Globulin 2.7 g/dL (1.7-4.1); Glucose 301 mg/dL (70-99); HEMOLYSIS 40 (0-50); Lipase 35 U/L (23-300); Potassium 4.2 mmol/L (3.4-5.1); Sodium 132 mmol/L (137-145); Total Protein 6.3 g/dL (6.3-8.2)
[2025-08-20 11:41] LABS: Calcium 6.3 mg/dL (8.4-10.2)
[2025-08-20] MEDS: ONDANSETRON 4 MG/2 ML INJ IV (11:55)
[2025-08-20] MEDS: CALCIUM GLUCONATE 9.3 MEQ in SODIUM CHLORIDE 0.9% 50 ML 140 MEQ IV (12:15)
[2025-08-20 15:10] VITALS: BP 129/58; PULSE 101; RESP 22; O2SAT 95
[2025-08-20 15:22] LABS: Alanine Aminotransferase 16 IU/L (<50); Albumin 3.4 g/dL (3.5-5.0); Albumin Globulin Ratio 1.3 (1.0-2.8); Alkaline Phosphatase 77 U/L (38-126); Blood Urea Nitrogen 29 mg/dL (9-20); Calcium 6.6 mg/dL (8.4-10.2); Carbon Dioxide 24 mmol/L (22-32); Chloride 101 mmol/L (98-107); Estimated Glomerular Filt Rate > 60 mL/min (>60); Globulin 2.6 g/dL (1.7-4.1); Glucose 201 mg/dL (70-99); HEMOLYSIS < 15 (0-50); Potassium 4.0 mmol/L (3.4-5.1); Sodium 134 mmol/L (137-145); Total Protein 6.0 g/dL (6.3-8.2)
[2025-08-20 15:30] VITALS: BP 119/63; PULSE 100; RESP 20; O2SAT 96
== END 2025-08-20 15:52 | disposition home or self-care (01) ==
PROVIDERS: Emergency Provider Emergency Medicine; PCP Family Medicine
DX: K52.9 Noninfective gastroenteritis and colitis, unspecified (principal); R07.9 Chest pain, unspecified; R00.0 Tachycardia, unspecified; D58.9 Hereditary hemolytic anemia, unspecified; Z87.01 Personal history of pneumonia (recurrent); Z86.19 Personal history of other infectious and parasitic diseases
CPT/HCPCS: 36415; 71250; 74176; 80053; 83690; 85007; 85025; 93005; 93010; 96361; 96365; 96375; 99284; J0612; J2405; J7030

== ENCOUNTER → 2025-08-24 14:01 | Outpatient (CLI) | payer OTHER, SELFPAY ==
[2025-05-23 17:12] VITALS: PULSE 106; RESP 24; O2SAT 94
[2025-08-13 15:19] VITALS: BMI 35.2
[2025-08-24 14:21] LABS: Add Manual Diff / Slide Review NO; Hematocrit 33.3 % (41-53); Hemoglobin 11.0 g/dL (13.5-17.5); Lymphocytes Absolute Auto 700 /uL (1100-4500); Mean Corpuscular HGB Conc 33.0 % (30-36); Mean Corpuscular Hemoglobin 27.7 PG (26-34); Mean Corpuscular Volume 84.1 fL (80-100); Platelet Count 338 X10^3/uL (150-400)
[2025-08-24 14:36] LABS: Alanine Aminotransferase 18 IU/L (<50); Albumin 3.9 g/dL (3.5-5.0); Albumin Globulin Ratio 1.6 (1.0-2.8); Alkaline Phosphatase 61 U/L (38-126); Blood Urea Nitrogen 32 mg/dL (9-20); Carbon Dioxide 25 mmol/L (22-32); Chloride 97 mmol/L (98-107); Estimated Glomerular Filt Rate > 60 mL/min (>60); Globulin 2.5 g/dL (1.7-4.1); Glucose 267 mg/dL (70-99); HEMOLYSIS < 15 (0-50); Potassium 4.7 mmol/L (3.4-5.1); Sodium 135 mmol/L (137-145); Total Protein 6.4 g/dL (6.3-8.2)
[2025-08-24 14:42] LABS: Calcium 6.0 mg/dL (8.4-10.2)
== END ==
PROVIDERS: PCP Family Medicine; Referring Provider Family Medicine; Visit Provider Family Medicine
DX: A04.72 Enterocolitis due to Clostridium difficile, not specified as recurrent (principal); E83.51 Hypocalcemia; E11.9 Type 2 diabetes mellitus without complications
CPT/HCPCS: 36415; 80053; 85025

== ENCOUNTER 2025-08-24 16:32 | Observation (INO) | payer OTHER, SELFPAY ==
[2025-05-23 17:12] VITALS: PULSE 106; RESP 24; O2SAT 94
[2025-08-13 15:19] VITALS: BMI 35.2
[2025-08-24] VITALS (23 sets, daily range): BP systolic 89–126; BP diastolic 55–78; PULSE 86–166; RESP 13–61; TEMP 37.4; O2SAT 93–98; BMI 34.2
--- NOTE | 2025-08-24 17:03 | EKG_ITS ---
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
--- NOTE | 2025-08-24 18:22 | ED.RECABL ---
HPI - Recheck/Abnormal Lab/Rx General Chief Complaint: Recheck/Abnormal Lab/Rx Stated Complaint: Something wrong w/ bloodwork; Sent from Phys Time Seen by Provider: 08/24/25 17:40 Source: patient Mode of arrival: Wheelchair History of Present Illness HPI narrative: 55-year-old male patient with a history of type 2 diabetes/nephropathy, hypertension, cold agglutinin hemolytic anemia with transfusions, morbid obesity, asthma/COPD/tobacco smoking and anxiety/depression/OCD who presents with cramping in the hands, feet and neck with confusion worsening since yesterday. Feels like his tongue is swollen. He had lab work done today and was sent in for having a calcium level of 6.0. Albumin is slightly low at 3.4. Patient has had loose bowel movements most days and has been on medication for C diff colitis for 5 weeks. He said he had 5 loose stools this morning but none since then. He is constantly nauseated but no vomiting. Along with the cramps in his hands and feet he has some cramps in the neck and some tingling in his lips. He has been followed for his calcium over the last week. On 08/20/2025 it was 6.3 and then later in the day 6.6. Related Data Home Medications ?Medication ?Instructions ?Recorded ?Confirmed spironolactone 25 mg tablet 25 mg PO BID 12/28/23 08/23/25 furosemide 40 mg tablet See Rx Instructions .Route 06/10/24 08/23/25 .COMPLEX PRN Swelling tiotropium bromide 18 mcg capsule See Rx Instructions .Route .COMPLEX 05/18/25 08/23/25 with inhalation device (Spiriva with HandiHaler) dapagliflozin propanediol 10 mg 10 mg PO DAILY 06/14/25 08/23/25 tablet famotidine 20 mg tablet 20 mg PO BID 06/14/25 08/23/25 metformin 500 mg tablet See Rx Instructions .Route .COMPLEX 07/02/25 08/23/25 prednisone 10 mg tablet 10 mg PO DAILY 07/02/25 08/23/25 losartan 100 mg tablet 50 mg PO DAILY 07/25/25 08/23/25 naloxone 4 mg/actuation nasal spray 1 spray intranasal 07/25/25 08/23/25 Previous Rx's ?Medication ?Instructions ?Recorded epinephrine 0.3 mg/0.3 mL 0.3 mg (0.3 mL) IM SEE 07/17/19 injection, auto-injector (EpiPen INSTRUCTIONS #2 ea 2-Nura) albuterol sulfate 90 mcg/actuation See Rx Instructions .Route 01/31/25 aerosol inhaler .COMPLEX #8.5 grams ferrous gluconate 324 mg (37.5 mg 324 mg PO DAILY #90 tabs 01/31/25 iron) tablet finasteride 5 mg tablet 5 mg PO DAILY #90 tabs 01/31/25 cyclobenzaprine 10 mg tablet 10 mg PO TID PRN muscle spasm #180 02/01/25 tabs gabapentin 600 mg tablet 1,200 mg (2 x 600 mg) PO TID #240 02/27/25 tabs amlodipine 10 mg tablet 10 mg PO DAILY #90 tabs 05/07/25 mometasone-formoterol HFA 200 See Rx Instructions .Route 05/07/25 mcg-5 mcg/actuation aerosol .COMPLEX #13 grams inhaler (Dulera) nicotine 14 mg/24 hr daily 1 patch transdermal DAILY #28 ea 05/16/25 transdermal patch trazodone 150 mg tablet 150 mg PO BEDTIME PRN insomnia #30 05/16/25 tabs apixaban 5 mg tablet (Eliquis) 5 mg PO BID #180 tabs 06/19/25 venlafaxine 75 mg tablet,extended See Rx Instructions .Route 06/27/25 release 24 hr .COMPLEX #90 tabs buprenorphine 2 mg-naloxone 0.5 mg See Rx Instructions buccal 07/05/25 sublingual film (Suboxone) .COMPLEX #30 ea diazepam 2 mg tablet 4 mg (2 x 2 mg) PO BEDTIME PRN 07/20/25 sleep #60 tabs doxycycline hyclate 100 mg capsule 100 mg PO BID #10 caps 08/14/25 metronidazole 500 mg tablet 500 mg PO QID #40 tabs 08/14/25 ondansetron 4 mg disintegrating 4 mg PO Q6H PRN nausea and 08/21/25 tablet vomiting #30 tabs oxycodone-acetaminophen 10 mg-325 See Rx Instructions PO .COMPLEX 08/21/25 mg tablet (Percocet) PRN pain #180 tabs beclomethasone dipropionate 80 1 inh inhalation Q12H #10.6 grams 08/22/25 mcg/actuation HFA breath activated aerosol (Qvar RediHaler) glimepiride 4 mg tablet 8 mg (2 x 4 mg) PO BID #240 tabs 08/23/25 Allergies Allergy/AdvReac Type Severity Reaction Status Date / Time Penicillins (PENICILLINS) Allergy Severe Facial/mouth Verified 08/23/25 10:32 numbness, mouth/lip swelling clindamycin Allergy Intermediate Verified 08/23/25 10:32 cephalexin (CEPHALEXIN) Allergy Mild FACIAL Verified 08/23/25 10:32 SWELLING terbinafine (TERBINAFINE) Allergy Unknown Unknown Verified 08/23/25 10:32 nut - unspecified Allergy Anaphylaxis Verified 08/23/25 10:32 benralizumab (From Fasenra) AdvReac Severe SOB Verified 08/23/25 10:32 Cephalosporins AdvReac Intermediate Vomiting Verified 08/23/25 10:32 (CEPHALOSPORINS) Beta-Blockers AdvReac Mild ASTHMA Verified 08/23/25 10:32 (Beta-Adrenergic Bloc nadolol (NADOLOL) AdvReac Mild AGGREVATES Verified 08/23/25 10:32 ASTHMA semaglutide (From Ozempic) AdvReac Mild CONSTIPATIO Verified 08/23/25 10:32 N Sulfa (Sulfonamide AdvReac Mild VOMITING Verified 08/23/25 10:32 Antibiotics) (SULFA (SULFONAMIDE ANTIBIOTICS)) Patient History Medical History (Updated 08/24/25 @ 22:29 by Hung Melton MD) Cold agglutinin disease Tobacco use disorder EMA (generalized anxiety disorder) OCD (obsessive compulsive disorder) Iron deficiency anemia Chronic pain syndrome Cervical stenosis of spinal canal Hypertension Hyperlipidemia Myocarditis Surgical History No pertinent past surgical history Social History marital status: unmarried,single household members: significant other lives independently: Yes occupational status: disabled alcohol intake: never substance use type: does not use tobacco type: cigarettes alcohol intake frequency: other Exam Initial Vital Signs Initial Vital Signs: Vital Signs Temperature 99.3 F 08/24/25 16:42 Pulse Rate 114 H 08/24/25 16:42 Respiratory Rate 18 08/24/25 16:42 Blood Pressure 126/61 08/24/25 16:42 Pulse Oximetry 97 08/24/25 16:42 Oxygen Delivery Method Room Air 08/24/25 16:42 Course Orders Ordered: ED Orders 08/24/25 17:03 EKG-12 Lead Routine 08/24/25 18:29 EKG-12 Lead Stat 08/24/25 19:15 Complete Blood Count AUTO DIFF Stat Comprehensive Metabolic Panel Stat Lactate (Lactic Acid) Stat Procalcitonin Stat Troponin & CK Cardiac Panel Stat 08/24/25 21:10 BMP [Basic Metabolic Panel] Stat Urinalysis and Microscopic Stat Urine Drug Screen, Rapid Stat 08/24/25 22:00 EKG-12 Lead Stat 08/25/25 06:00 Complete Blood Count AUTO DIFF DAILY Comprehensive Metabolic Panel DAILY Acetaminophen (Acetaminophen 325 Mg Tablet) 650 mg PO Q6H PRN PRN Reason: Fever/Mild Pain (1-3) Sodium Chloride (Normal Saline 0.9%) 1,000 mls @ 1,000 mls/hr IV BOLUS ONE Stop: 08/24/25 22:36 Last Admin: 08/24/25 21:38 Dose: 1,000 mls/hr Documented By: TONI Calcium Gluconate 9.3 meq/ (Sodium Chloride) 70 mls @ 70 mls/hr IV NOW ONE Stop: 08/24/25 23:19 Metoprolol Tartrate (Metoprolol Tartrate 5 Mg/5 Ml Inj) 5 mg IV Q6H PRN PRN Reason: HR > 120 sustained Naloxone HCl (Naloxone 0.4 Mg/Ml Vial) 0.2 mg IV Q2MIN PRN PRN Reason: Opiate Reversal Ondansetron HCl (Ondansetron 4 Mg/2 Ml Inj) 4 mg IV Q8HR PRN PRN Reason: Nausea And Vomiting Discontinued Medications Diltiazem HCl (Diltiazem 25 Mg/5 Ml Sdv) 25 mg IV NOW ONE Stop: 08/24/25 20:48 Last Admin: 08/24/25 21:24 Dose: 25 mg Documented By: TONI Calcium Gluconate 9.3 meq/ (Sodium Chloride) 70 mls @ 140 mls/hr IV NOW ONE Stop: 08/24/25 19:03 Last Infusion: 08/24/25 21:09 Dose: Infused Documented By: Admin: 08/24/25 19:37 Dose: 140 mls/hr Documented By: TONI Sodium Chloride (Normal Saline 0.9%) 1,000 mls @ 1,000 mls/hr IV BOLUS ONE Stop: 08/24/25 19:33 Last Infusion: 08/24/25 21:09 Dose: Infused Documented By: Admin: 08/24/25 19:37 Dose: 1,000 mls/hr Documented By: TONI Vital Signs Vital signs: Vital Signs - 8 hr 08/24/25 16:42 08/24/25 18:55 08/24/25 19:00 Temperature 99.3 F Pulse Rate 114 H 100 H 101 H Respiratory Rate 18 Blood Pressure 126/61 Pulse Oximetry 97 94 94 Oxygen Delivery Method Room Air 08/24/25 19:00 08/24/25 19:30 08/24/25 19:30 Temperature Pulse Rate 90 Respiratory Rate Blood Pressure 125/67 109/68 Pulse Oximetry 95 Oxygen Delivery Method 08/24/25 20:00 08/24/25 20:00 08/24/25 20:30 Temperature Pulse Rate 86 Respiratory Rate Blood Pressure 105/78 102/59 L Pulse Oximetry Oxygen Delivery Method 08/24/25 20:30 08/24/25 21:00 08/24/25 21:00 Temperature Pulse Rate 159 H 166 H Respiratory Rate Blood Pressure 107/60 Pulse Oximetry 94 94 Oxygen Delivery Method 08/24/25 21:24 08/24/25 21:30 08/24/25 21:30 Temperature Pulse Rate 160 H 156 H Respiratory Rate 14 Blood Pressure 107/60 98/58 L Pulse Oximetry 96 Oxygen Delivery Method 08/24/25 21:35 08/24/25 21:35 08/24/25 21:40 Temperature Pulse Rate 155 H 101 H Respiratory Rate 14 13 Blood Pressure 89/55 L Pulse Oximetry 93 95 Oxygen Delivery Method 08/24/25 21:40 08/24/25 21:45 08/24/25 21:45 Temperature Pulse Rate 98 H Respiratory Rate 14 Blood Pressure 103/57 L 100/55 L Pulse Oximetry 93 Oxygen Delivery Method 08/24/25 21:50 08/24/25 21:50 08/24/25 22:00 Temperature Pulse Rate 100 H 100 H Respiratory Rate 13 15 Blood Pressure 99/55 L Pulse Oximetry 93 93 Oxygen Delivery Method 08/24/25 22:00 Temperature Pulse Rate Respiratory Rate Blood Pressure 101/55 L Pulse Oximetry Oxygen Delivery Method MDM - Recheck/Abnormal Lab/Rx Lab Data Attestation: I reviewed the patient's lab results. Lab results narrative: Hypocalcemia at 6.0. Albumin 3.4 08/24/25 19:15 08/24/25 21:10 Labs: Lab Results 08/24/25 08/24/25 08/24/25 Range/Units 19:15 21:10 21:10 WBC 10.7 (4.5-11.0) X10^3/uL RBC 3.77 L (4.5-5.9) X10^6/uL Hgb 10.6 L (13.5-17.5) g/dL Hct 31.6 L (41-53) % MCV 83.7 (80-100) fL MCH 28.1 (26-34) PG MCHC 33.6 (30-36) % RDW 16.1 H (11.6-14.8) % Plt Count 332 (150-400) X10^3/uL Neut % (Auto) Not Reportable Lymph % (Auto) Not Reportable Yell % (Auto) Not Reportable Eos % (Auto) Not Reportable Baso % (Auto) Not Reportable Lymph # (Auto) Not Reportable Yell # (Auto) Not Reportable Baso # (Auto) Not Reportable Total Counted 100 Seg Neutrophils % 78.0 H (38-70) % Band Neutrophils % 3.0 (3-7) % Lymphocytes % (Manual) 13.0 L (25-45) % Monocytes % (Manual) 2.0 (2-11) % Eosinophils % (Manual) 2.0 (2-4) % Basophils % (Manual) 2.0 H (0-1) % Neutrophils # (Manual) 8667 H (7403-6917) /uL RBC Morphology Normal morphology Sodium 134 L 136 L (137-145) mmol/L Potassium 3.8 3.7 (3.4-5.1) mmol/L Chloride 97 L 99 (98-107) mmol/L Carbon Dioxide 24 23 (22-32) mmol/L BUN 32 H 31 H (9-20) mg/dL Creatinine 0.97 0.96 (0.66-1.25) mg/dL Estimated GFR > 60 > 60 (>60) mL/min BUN/Creatinine Ratio 33.0 H 32.3 H (6-22) Glucose 104 H D 83 (70-99) mg/dL Lactate 2.3 H 0.9 (0.7-2.1) mmol/L Calcium 5.8 L* 6.3 L* (8.4-10.2) mg/dL Total Bilirubin 0.3 (0.2-1.3) mg/dL AST 21 (17-59) IU/L ALT 20 (<50) IU/L Alkaline Phosphatase 55 (38-126) U/L Total Creatine Kinase 75 (55-170) U/L Troponin I < 0.012 (0.01-0.034) ng/mL Total Protein 6.8 (6.3-8.2) g/dL Albumin 4.0 (3.5-5.0) g/dL Globulin 2.8 (1.7-4.1) g/dL Albumin/Globulin Ratio 1.4 (1.0-2.8) Procalcitonin 0.287 (<0.5) ng/mL Urine Color Yellow Urine Appearance Clear Urine pH 6.0 Normal (4.5-8.0) Ur Specific [place] 1.010 (1.000-1.035) Urine Protein Negative (Negative) Urine Glucose (UA) 1+ H (Negative) g/dL Urine Ketones Negative (NEGATIVE) Urine Occult Blood Negative (Negative) Urine Nitrate Negative (Negative) Urine Bilirubin Negative (NEGATIVE) Urine Urobilinogen 0.2 (0.2) E.U./dL Ur Leukocyte Esterase Negative (NEGATIVE) Urine RBC None seen (0-5/HPF) Urine WBC None seen (0-5/HPF) Ur Squamous Epith Cells None seen (0-5/HPF) Urine Bacteria None seen (None) Ur Culture Indicated? Cult not indicated Vol Urine Centrifuged 10ml (spun) U Opiates 300ng/mL cut Negative (Negative) Ur Oxycodone Screen Positive H (Negative) Urine Methadone Screen Negative (Negative) Ur Barbiturates Screen Negative (Negative) U Tricyclic Antidepress Positive H (Negative) Ur Phencyclidine Scrn Negative (Negative) Ur Amphetamines Screen Negative (Negative) U Methamphetamines Scrn Negative (Negative) Ur MDMA Scrn (Ecstasy) Negative (Negative) U Benzodiazepines Scrn Positive H (Negative) Urine Cocaine Screen Negative (Negative) U Marijuana (THC) Screen Negative (Negative) Urine Specific [place] Normal (Normal) Ur Creatinine Normal (Normal) ECG Data Attestation: I personally reviewed and interpreted this ECG as follows: (Sinus tachycardia at 107 with supraventricular complexes occasionally. Poor R-wave progression. Otherwise no ischemic changes. Rate 107) MDM Narrative Medical decision making narrative: Patient presents with symptomatic severe hypocalcemia and I have ordered calcium gluconate. 20:45 Patient was tachycardic in the 160s and a repeat EKG reveals atrial flutter. He has never had atrial flutter or atrial fibrillation. I am giving him diltiazem, 25 milligrams. Atrial flutter resolved with diltiazem he is now in sinus rhythm at 98. His pressure was low for a short amount of time with a systolic of 89 but that improved with IV fluids. 22;15 I discussed the patient's care with Dr. Smith, hospitalist who agrees to admit him for hypocalcemia and atrial flutter. Patient has multiple chronic health problems and now has hypocalcemia with near normal albumin. He will be admitted for calcium replenishment. He also had a run of atrial flutter which responded to diltiazem and is now in normal sinus rhythm. Dr. Smith is aware of this and will monitor him on telemetry. Discharge Plan Departure Patient Disposition: Admitted as Observation Clinical Impression: Hypocalcemia, Atrial flutter Admit Date/Time: 08/24/25 22:22 Admit Provider: Francisco Smith
--- NOTE | 2025-08-24 18:29 | EKG_ITS ---
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
[2025-08-24 19:31] LABS: Hematocrit 31.6 % (41-53); Hemoglobin 10.6 g/dL (13.5-17.5); Mean Corpuscular HGB Conc 33.6 % (30-36); Mean Corpuscular Hemoglobin 28.1 PG (26-34); Mean Corpuscular Volume 83.7 fL (80-100); Platelet Count 332 X10^3/uL (150-400)
[2025-08-24] MEDS: CALCIUM GLUCONATE 9.3 MEQ in SODIUM CHLORIDE 0.9% 50 ML 140 MEQ IV (19:37)
[2025-08-24] MEDS: SODIUM CHLORIDE 0.9% 1,000 ML 1000 ML IV ×2 (19:37→21:38)
[2025-08-24 19:38] LABS: Alanine Aminotransferase 20 IU/L (<50); Albumin 4.0 g/dL (3.5-5.0); Albumin Globulin Ratio 1.4 (1.0-2.8); Alkaline Phosphatase 55 U/L (38-126); Blood Urea Nitrogen 32 mg/dL (9-20); Carbon Dioxide 24 mmol/L (22-32); Chloride 97 mmol/L (98-107); Creatine Kinase 75 U/L (55-170); Estimated Glomerular Filt Rate > 60 mL/min (>60); Globulin 2.8 g/dL (1.7-4.1); Glucose 104 mg/dL (70-99); HEMOLYSIS < 15 (0-50); Lactate (Lactic Acid) 2.3 mmol/L (0.7-2.1); Potassium 3.8 mmol/L (3.4-5.1); Sodium 134 mmol/L (137-145); Total Protein 6.8 g/dL (6.3-8.2)
[2025-08-24 19:41] LABS: Calcium 5.8 mg/dL (8.4-10.2)
[2025-08-24 19:42] LABS: Add Manual Diff / Slide Review YES
[2025-08-24 19:49] LABS: Troponin I < 0.012 ng/mL (0.01-0.034)
[2025-08-24 19:50] LABS: Band Neutrophils Percent 3.0 % (3-7); Basophils Percent Manual 2.0 % (0-1); Eosinophils Percent Manual 2.0 % (2-4); Lymphocytes Percent Manual 13.0 % (25-45); Monocytes Percent Manual 2.0 % (2-11); Neutrophils Absolute Manual 8667 /uL (3000-5900); RBC Morphology Normal Morphology; Segmented Neutrophils Percent 78.0 % (38-70); Total Cells Counted 100
[2025-08-24 19:54] LABS: Procalcitonin 0.287 ng/mL (<0.5)
[2025-08-24 20:57] LABS: Reflexed Lactate in 2 Hours Y
[2025-08-24 21:22] LABS: Appearance Urine UA CLEAR; Bilirubin Urine UA NEGATIVE (NEGATIVE); Color Urine UA YELLOW; Glucose Urine UA 1+ g/dL (Negative); Ketones Urine UA NEGATIVE (NEGATIVE); Leukocyte Esterase Urine UA NEGATIVE (NEGATIVE); Nitrite Urine UA NEGATIVE (Negative); Occult Blood Urine UA NEGATIVE (Negative); Protein Urine UA NEGATIVE (Negative); Specific Gravity Urine UA 1.010 (1.000-1.035); Urobilinogen Urine UA 0.2 E.U./dL (0.2); pH Urine UA 6.0 (4.5-8.0)
[2025-08-24 21:27] LABS: UR Morphine/Opiate cutoff 300 Negative (Negative); Ur Specific Gravity Normal (Normal); Urine Methamphetamines Negative (Negative); Urine Tetrahydrocannabinol Negative (Negative)
[2025-08-24 21:28] LABS: Urine MDMA Negative (Negative); Urine Tricyclic Antidepressant Positive (Negative)
[2025-08-24 21:32] LABS: Lactate 2HR (Lactic Acid Rflx) 0.9 mmol/L (0.7-2.1)
[2025-08-24 21:33] LABS: Blood Urea Nitrogen 31 mg/dL (9-20); Carbon Dioxide 23 mmol/L (22-32); Chloride 99 mmol/L (98-107); Estimated Glomerular Filt Rate > 60 mL/min (>60); Glucose 83 mg/dL (70-99); HEMOLYSIS < 15 (0-50); Potassium 3.7 mmol/L (3.4-5.1); Sodium 136 mmol/L (137-145)
[2025-08-24 21:34] LABS: Culture Indicated Urine Cult Not Indicated
[2025-08-24 21:37] LABS: Calcium 6.3 mg/dL (8.4-10.2)
--- NOTE | 2025-08-24 22:04 | EKG_ITS ---
[address] [address] [address], [place] [address] Test Date: 2025-08-24 Pat Name: Bandar George Department: Room: Gender: Male Invoice Checker: ANURADHA : 1970 Requested By: Order Number: [id number] Reading MD: Dereck Kwan MD Measurements Intervals [place] Rate: 100 P: 64 [place]: 202 QRS: 14 QRSD: 88 T: 53 QT: 364 QTc: 469 Interpretive Statements Normal sinus rhythm Electronically Signed On 08-25-2025 10:18:20 PST by Dereck Kwan MD
[2025-08-24] MEDS: ONDANSETRON 4 MG/2 ML INJ IV (22:47)
[2025-08-24] MEDS: CALCIUM GLUCONATE 9.3 MEQ in SODIUM CHLORIDE 0.9% 100 ML 120 MEQ IV (23:14)
[2025-08-25] VITALS (35 sets, daily range): BP systolic 99–126; BP diastolic 55–72; PULSE 81–106; RESP 12–51; TEMP 36.6; O2SAT 90–99; BMI 34.2
[2025-08-25] MEDS: CYCLOBENZAPRINE 10 MG TABLET PO ×2 (01:54→19:28)
[2025-08-25 04:11] LABS: Add Manual Diff / Slide Review NO; Hematocrit 32.5 % (41-53); Hemoglobin 10.8 g/dL (13.5-17.5); Lymphocytes Absolute Auto 1900 /uL (1100-4500); Mean Corpuscular HGB Conc 33.1 % (30-36); Mean Corpuscular Hemoglobin 27.7 PG (26-34); Mean Corpuscular Volume 83.8 fL (80-100); Platelet Count 328 X10^3/uL (150-400)
[2025-08-25 04:24] LABS: Alanine Aminotransferase 15 IU/L (<50); Albumin 3.6 g/dL (3.5-5.0); Albumin Globulin Ratio 1.4 (1.0-2.8); Alkaline Phosphatase 64 U/L (38-126); Blood Urea Nitrogen 28 mg/dL (9-20); Carbon Dioxide 24 mmol/L (22-32); Chloride 102 mmol/L (98-107); Estimated Glomerular Filt Rate > 60 mL/min (>60); Globulin 2.6 g/dL (1.7-4.1); Glucose 180 mg/dL (70-99); HEMOLYSIS < 15 (0-50); Potassium 3.5 mmol/L (3.4-5.1); Sodium 138 mmol/L (137-145); Total Protein 6.2 g/dL (6.3-8.2)
[2025-08-25 04:29] LABS: Calcium 6.3 mg/dL (8.4-10.2)
--- NOTE | 2025-08-25 06:22 | PM.HP.1 ---
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 Per the patient's report the patient started to have increased cramping in his hands and feet with some confusion yesterday. The patient had lab work done today and was sent into our ER due to level of calcium 6.0. The albumin at that time was 3.4. Recently the patient had C. difficile related diarrhea and was treated for 5 weeks. The patient states that he still has some loose stools that is normal morning but overall improving. The patient also was nausea but denies any vomiting. Otherwise the patient denies any fever, chills, abdominal pain, chest pain, dysuria, coughing or syncope. In the emergency room, the patient was hemodynamically stable. Calcium was repeated and was 5.8. Calcium gluconate 2 g was given and repeat was 6.3. Lactate was 2.3 but repeat was 0.9 with IV fluid. Patient also was in the A-flutter with RVR. Heart rate was in the 1-1 60. IV diltiazem push was given and patient converted back to normal sinus rhythm. Due to ongoing hypocalcemia ER physician requested admission for replacement. [facility] Medical History (Updated 08/24/25 @ 22:29 by Hung Melton MD) Cold agglutinin disease Tobacco use disorder EMA (generalized anxiety disorder) OCD (obsessive compulsive disorder) Iron deficiency anemia Chronic pain syndrome Cervical stenosis of spinal canal Hypertension Hyperlipidemia Myocarditis Surgical History No pertinent past surgical history Social History marital status: unmarried,single household members: significant other lives independently: Yes occupational status: disabled alcohol intake: never substance use type: does not use Meds Home Medications and Allergies Home Medications ?Medication ?Instructions ?Recorded ?Confirmed ?Type epinephrine 0.3 mg/0.3 mL 0.3 mg (0.3 mL) IM SEE 07/17/19 08/24/25 Rx injection, auto-injector (EpiPen INSTRUCTIONS #2 ea 2-Nura) spironolactone 25 mg tablet 25 mg PO BID 12/28/23 08/24/25 History furosemide 40 mg tablet See Rx Instructions .Route 06/10/24 08/24/25 History .COMPLEX PRN Swelling albuterol sulfate 90 mcg/actuation See Rx Instructions .Route 01/31/25 08/24/25 Rx aerosol inhaler .COMPLEX #8.5 grams ferrous gluconate 324 mg (37.5 mg 324 mg PO DAILY #90 tabs 01/31/25 08/24/25 Rx iron) tablet finasteride 5 mg tablet 5 mg PO DAILY #90 tabs 01/31/25 08/24/25 Rx cyclobenzaprine 10 mg tablet 10 mg PO TID PRN muscle spasm #180 02/01/25 08/24/25 Rx tabs gabapentin 600 mg tablet 1,200 mg (2 x 600 mg) PO TID #240 02/27/25 08/24/25 Rx tabs amlodipine 10 mg tablet 10 mg PO DAILY #90 tabs 05/07/25 08/24/25 Rx Held on 08/24/25. Instructions: Provider's Order mometasone-formoterol HFA 200 See Rx Instructions .Route 05/07/25 08/24/25 Rx mcg-5 mcg/actuation aerosol .COMPLEX #13 grams inhaler (Dulera) nicotine 14 mg/24 hr daily 1 patch transdermal DAILY #28 ea 05/16/25 08/24/25 Rx transdermal patch trazodone 150 mg tablet 150 mg PO BEDTIME PRN insomnia #30 05/16/25 08/24/25 Rx tabs tiotropium bromide 18 mcg capsule See Rx Instructions .Route .COMPLEX 05/18/25 08/24/25 History with inhalation device (Spiriva with HandiHaler) dapagliflozin propanediol 10 mg 10 mg PO DAILY 06/14/25 08/24/25 History tablet famotidine 20 mg tablet 20 mg PO BID 06/14/25 08/24/25 History apixaban 5 mg tablet (Eliquis) 5 mg PO BID #180 tabs 06/19/25 08/24/25 Rx metformin 500 mg tablet See Rx Instructions .Route .COMPLEX 07/02/25 08/24/25 History prednisone 10 mg tablet 10 mg PO DAILY 07/02/25 08/24/25 History buprenorphine 2 mg-naloxone 0.5 mg See Rx Instructions buccal 07/05/25 08/24/25 Rx sublingual film (Suboxone) .COMPLEX #30 ea diazepam 2 mg tablet 4 mg (2 x 2 mg) PO BEDTIME PRN 07/20/25 08/24/25 Rx sleep #60 tabs losartan 100 mg tablet 50 mg PO DAILY 07/25/25 08/24/25 History Held on 08/24/25. Instructions: Provider's Order naloxone 4 mg/actuation nasal spray 1 spray intranasal .Once 07/25/25 08/24/25 History ondansetron 4 mg disintegrating 4 mg PO Q6H PRN nausea and 08/21/25 08/24/25 Rx tablet vomiting #30 tabs oxycodone-acetaminophen 10 mg-325 See Rx Instructions PO .COMPLEX 08/21/25 08/24/25 Rx mg tablet (Percocet) PRN pain #180 tabs beclomethasone dipropionate 80 1 inh inhalation Q12H #10.6 grams 08/22/25 08/24/25 Rx mcg/actuation HFA breath activated aerosol (Qvar RediHaler) glimepiride 4 mg tablet 8 mg (2 x 4 mg) PO BID #240 tabs 08/23/25 08/24/25 Rx Allergies Allergy/AdvReac Type Severity Reaction Status Date / Time Penicillins (PENICILLINS) Allergy Severe Facial/mouth Verified 08/23/25 10:32 numbness, mouth/lip swelling clindamycin Allergy Intermediate Verified 08/23/25 10:32 cephalexin (CEPHALEXIN) Allergy Mild FACIAL Verified 08/23/25 10:32 SWELLING terbinafine (TERBINAFINE) Allergy Unknown Unknown Verified 08/23/25 10:32 nut - unspecified Allergy Anaphylaxis Verified 08/23/25 10:32 benralizumab (From Fasenra) AdvReac Severe SOB Verified 08/23/25 10:32 Cephalosporins AdvReac Intermediate Vomiting Verified 08/23/25 10:32 (CEPHALOSPORINS) Beta-Blockers AdvReac Mild ASTHMA Verified 08/23/25 10:32 (Beta-Adrenergic Bloc nadolol (NADOLOL) AdvReac Mild AGGREVATES Verified 08/23/25 10:32 ASTHMA semaglutide (From Ozempic) AdvReac Mild CONSTIPATIO Verified 08/23/25 10:32 N Sulfa (Sulfonamide AdvReac Mild VOMITING Verified 08/23/25 10:32 Antibiotics) (SULFA (SULFONAMIDE ANTIBIOTICS)) Review of Systems Review of Systems ROS: Yes All systems reviewed with the patient and are negative except as otherwise documented Exam Vital Signs (past 8 hours): - 08/24/25 22:30 08/24/25 22:30 08/24/25 22:40 Pulse Rate 103 H 110 H Respiratory Rate 38 H 39 H Blood Pressure 107/65 Pulse Oximetry 94 97 Oxygen Delivery Method 08/24/25 22:40 08/24/25 22:50 08/24/25 22:50 Pulse Rate 104 H Respiratory Rate 24 Blood Pressure 103/56 L 109/57 L Pulse Oximetry Oxygen Delivery Method 08/24/25 23:00 08/24/25 23:00 08/24/25 23:10 Pulse Rate 101 H Respiratory Rate 37 H Blood Pressure 101/60 103/58 L Pulse Oximetry Oxygen Delivery Method 08/24/25 23:10 08/24/25 23:30 08/24/25 23:30 Pulse Rate 104 H 106 H Respiratory Rate 36 H 61 H Blood Pressure 98/61 Pulse Oximetry 97 98 Oxygen Delivery Method Room Air Room Air 08/24/25 23:40 08/24/25 23:40 08/25/25 00:00 Pulse Rate 102 H Respiratory Rate 18 Blood Pressure 102/57 L 103/57 L Pulse Oximetry 97 Oxygen Delivery Method Room Air 08/25/25 00:00 08/25/25 00:10 08/25/25 00:10 Pulse Rate 102 H 106 H Respiratory Rate 30 H 23 Blood Pressure 105/64 Pulse Oximetry 94 92 Oxygen Delivery Method Room Air Room Air 08/25/25 00:20 08/25/25 00:20 08/25/25 00:30 Pulse Rate 105 H 103 H Respiratory Rate 36 H 38 H Blood Pressure 104/69 Pulse Oximetry 94 94 Oxygen Delivery Method Room Air Room Air 08/25/25 00:30 08/25/25 00:40 08/25/25 00:40 Pulse Rate 99 H Respiratory Rate 18 Blood Pressure 99/55 L 108/60 Pulse Oximetry 96 Oxygen Delivery Method Room Air 08/25/25 00:50 08/25/25 00:50 08/25/25 01:00 Pulse Rate 97 H Respiratory Rate 20 Blood Pressure 106/60 111/62 Pulse Oximetry 96 Oxygen Delivery Method Room Air 08/25/25 01:00 08/25/25 01:10 08/25/25 01:10 Pulse Rate 98 H 94 H Respiratory Rate 18 17 Blood Pressure 111/62 Pulse Oximetry 94 95 Oxygen Delivery Method Room Air Room Air 08/25/25 01:56 08/25/25 01:58 08/25/25 01:58 Pulse Rate 101 H 98 H Respiratory Rate 51 H 16 Blood Pressure 122/65 Pulse Oximetry 94 95 Oxygen Delivery Method Room Air Room Air 08/25/25 02:00 08/25/25 06:00 Pulse Rate 101 H 90 Respiratory Rate 15 15 Blood Pressure 104/58 L Pulse Oximetry 95 90 L Oxygen Delivery Method Room Air Room Air Oxygen Delivery Method Room Air Narrative Exam Narrative: Physical Exam: GENERAL: The patient is not in any acute distressed. Awake and alert. HEENT: Nonicteric sclerae, PERRLA, EOMI. Oropharynx clear. Moist mucous membranes. Conjunctivae appear well perfused. HEART: slightly tachy but now with regular rhythm without murmurs. No lower extremities edema. LUNGS: Clear to auscultation bilaterally. No wheezing, crackles or rhonchi ABDOMEN: Soft, positive bowel sounds, nontender. SKIN: No rash, no excessive bruising, petechiae, or purpura. NEUROLOGIC: AxO x 3. Cranial nerves II-XII intact without motor/sensory deficit. Objective Labs 08/25/25 03:25 08/25/25 03:25 Labs: Laboratory Results - last 24 hr 08/24/25 08/24/25 08/24/25 19:15 21:10 21:10 WBC 10.7 RBC 3.77 L Hgb 10.6 L Hct 31.6 L MCV 83.7 MCH 28.1 MCHC 33.6 RDW 16.1 H Plt Count 332 Neut % (Auto) Not Reportable Lymph % (Auto) Not Reportable Lares % (Auto) Not Reportable Eos % (Auto) Not Reportable Baso % (Auto) Not Reportable Neut # (Auto) Lymph # (Auto) Not Reportable Lares # (Auto) Not Reportable Eos # (Auto) Baso # (Auto) Not Reportable Total Counted 100 Seg Neutrophils % 78.0 H Band Neutrophils % 3.0 Lymphocytes % (Manual) 13.0 L Monocytes % (Manual) 2.0 Eosinophils % (Manual) 2.0 Basophils % (Manual) 2.0 H Neutrophils # (Manual) 8667 H RBC Morphology Normal morphology Sodium 134 L 136 L Potassium 3.8 3.7 Chloride 97 L 99 Carbon Dioxide 24 23 BUN 32 H 31 H Creatinine 0.97 0.96 Estimated GFR > 60 > 60 BUN/Creatinine Ratio 33.0 H 32.3 H Glucose 104 H D 83 Lactate 2.3 H 0.9 Calcium 5.8 L* 6.3 L* Total Bilirubin 0.3 AST 21 ALT 20 Alkaline Phosphatase 55 Total Creatine Kinase 75 Troponin I < 0.012 Total Protein 6.8 Albumin 4.0 Globulin 2.8 Albumin/Globulin Ratio 1.4 Procalcitonin 0.287 Urine Color Yellow Urine Appearance Clear Urine pH 6.0 Normal Ur Specific Bogart 1.010 Urine Protein Negative Urine Glucose (UA) 1+ H Urine Ketones Negative Urine Occult Blood Negative Urine Nitrate Negative Urine Bilirubin Negative Urine Urobilinogen 0.2 Ur Leukocyte Esterase Negative Urine RBC None seen Urine WBC None seen Ur Squamous Epith Cells None seen Urine Bacteria None seen Ur Culture Indicated? Cult not indicated Vol Urine Centrifuged 10ml (spun) U Opiates 300ng/mL cut Negative Ur Oxycodone Screen Positive H Urine Methadone Screen Negative Ur Barbiturates Screen Negative U Tricyclic Antidepress Positive H Ur Phencyclidine Scrn Negative Ur Amphetamines Screen Negative U Methamphetamines Scrn Negative Ur MDMA Scrn (Ecstasy) Negative U Benzodiazepines Scrn Positive H Urine Cocaine Screen Negative U Marijuana (THC) Screen Negative Urine Specific Bogart Normal Ur Creatinine Normal 08/25/25 03:25 WBC 10.1 RBC 3.88 L Hgb 10.8 L Hct 32.5 L MCV 83.8 MCH 27.7 MCHC 33.1 RDW 16.6 H Plt Count 328 Neut % (Auto) 70.3 Lymph % (Auto) 18.8 L Lares % (Auto) 9.4 Eos % (Auto) 1.0 L Baso % (Auto) 0.5 Neut # (Auto) 7100 H Lymph # (Auto) 1900 Lares # (Auto) 1000 H Eos # (Auto) 100 Baso # (Auto) 0 Total Counted Seg Neutrophils % Band Neutrophils % Lymphocytes % (Manual) Monocytes % (Manual) Eosinophils % (Manual) Basophils % (Manual) Neutrophils # (Manual) RBC Morphology Sodium 138 Potassium 3.5 Chloride 102 Carbon Dioxide 24 BUN 28 H Creatinine 0.86 Estimated GFR > 60 BUN/Creatinine Ratio 32.6 H Glucose 180 H Lactate Calcium 6.3 L* Total Bilirubin < 0.1 L AST 19 ALT 15 Alkaline Phosphatase 64 Total Creatine Kinase Troponin I Total Protein 6.2 L Albumin 3.6 Globulin 2.6 Albumin/Globulin Ratio 1.4 Procalcitonin Urine Color Urine Appearance Urine pH Ur Specific Bogart Urine Protein Urine Glucose (UA) Urine Ketones Urine Occult Blood Urine Nitrate Urine Bilirubin Urine Urobilinogen Ur Leukocyte Esterase Urine RBC Urine WBC Ur Squamous Epith Cells Urine Bacteria Ur Culture Indicated? Vol Urine Centrifuged U Opiates 300ng/mL cut Ur Oxycodone Screen Urine Methadone Screen Ur Barbiturates Screen U Tricyclic Antidepress Ur Phencyclidine Scrn Ur Amphetamines Screen U Methamphetamines Scrn Ur MDMA Scrn (Ecstasy) U Benzodiazepines Scrn Urine Cocaine Screen U Marijuana (THC) Screen Urine Specific Bogart Ur Creatinine Assessment & Plan Assessment & Plan narrative: Severe hypocalcemia. Admit the patient to medical telemetry as observation. Continue IV calcium gluconate and monitor calcium closely. Pending ionized calcium. New onset of atrial flutter with RVR. RVR resolved with IV diltiazem push in the ER. Will continue as needed metoprolol IV if needed. Echocardiogram ordered. Patient was started on Eliquis which we will continue for now. Hypertension. Monitor blood pressure resume home medication accordingly. Diabetes. Monitor glucose with subcu insulin. COPD/asthma. No sign of exacerbation. Resume home inhalers. DVT prophylaxis Eliquis. CODE STATUS full code. Disposition likely home in 1 to 2 days - As the provider of this telehealth evaluation, requested by the patient's evaluating physician, I attest that I introduced myself to the patient, provided my credentials and determined that telemedicine via a real-time, 2 way interactive audio and video platform is an appropriate and effective means of providing this service. - I reviewed the patient's chart and had a discussion with the member of the patient's treatment team. - The patient and I mutually agreed with continuation of this evaluation via telemedicine. The patient consented for the telemedicine evaluation. - This virtual encounter was taken place from [place] by Dr. Francisco Smith. The patient was evaluated at [facility]. The encounter was approximately 35 minutes. The nurse was present during the entire time of the encounter and was able assists with the stethoscope to listen to the patients. Time-Based Coding :: [TOTAL MINUTES] spent with patient and on the chart (including review of chart, obtaining history, exam, reviewing outside data, placing orders, documenting exam and treatment plan, and counseling patient) on [DATE].
--- NOTE | 2025-08-25 08:50 | PC.NURSE ---
Patient up to the bathroom, walked 100 ft without assistance and back to bed as well. Patient requests Can I go home today? Hospitalist contacted at this time, awaiting call back.
[2025-08-25] MEDS: FAMOTIDINE 20 MG TABLET PO ×2 (09:11→21:45)
[2025-08-25] MEDS: POTASSIUM CHLORIDE 20 MEQ TAB 40 MEQ PO (09:11)
[2025-08-25] MEDS: APIXABAN 5 MG TABLET PO ×2 (09:16→21:45)
[2025-08-25] MEDS: FINASTERIDE 5 MG TABLET PO (09:19)
[2025-08-25] MEDS: GABAPENTIN 600 MG TABLET 1200 MG PO ×3 (09:19→21:45)
[2025-08-25] MEDS: FERROUS SULFATE 325 MG TABLET PO (09:20)
[2025-08-25] MEDS: SPIRONOLACTONE 25 MG TABLET PO ×2 (09:20→21:45)
[2025-08-25] MEDS: ONDANSETRON 4 MG ODT PO (09:50)
--- NOTE | 2025-08-25 10:42 | PC.NURSE ---
pt would like to go home. He feels well and is going stir crazy.
[2025-08-25 11:25] LABS: Alanine Aminotransferase 13 IU/L (<50); Albumin 3.0 g/dL (3.5-5.0); Albumin Globulin Ratio 1.2 (1.0-2.8); Alkaline Phosphatase 49 U/L (38-126); Blood Urea Nitrogen 21 mg/dL (9-20); Carbon Dioxide 17 mmol/L (22-32); Chloride 109 mmol/L (98-107); Estimated Glomerular Filt Rate > 60 mL/min (>60); Globulin 2.5 g/dL (1.7-4.1); Glucose 171 mg/dL (70-99); Potassium 3.6 mmol/L (3.4-5.1); Sodium 137 mmol/L (137-145); Total Protein 5.5 g/dL (6.3-8.2)
[2025-08-25 11:28] LABS: HEMOLYSIS 79 (0-50)
[2025-08-25 11:29] LABS: Calcium 5.0 mg/dL (8.4-10.2)
[2025-08-25] MEDS: CALCIUM GLUCONATE 9.3 MEQ in SODIUM CHLORIDE 0.9% 50 ML 140 MEQ IV (12:10)
[2025-08-25 13:38] LABS: Blood Urea Nitrogen 23 mg/dL (9-20); Carbon Dioxide 22 mmol/L (22-32); Chloride 101 mmol/L (98-107); Estimated Glomerular Filt Rate > 60 mL/min (>60); Glucose 279 mg/dL (70-99); HEMOLYSIS 26 (0-50); Potassium 4.1 mmol/L (3.4-5.1); Sodium 134 mmol/L (137-145)
[2025-08-25 13:40] LABS: Calcium 6.4 mg/dL (8.4-10.2)
[2025-08-25] MEDS: CALCIUM CARBONATE 500 MG TAB 1000 MG PO ×3 (14:00→21:45)
[2025-08-25] MEDS: ALBUTEROL/IPRATROPIUM 3 ML AMPUL INH ×3 (14:14→23:26)
[2025-08-25 14:24] LABS: Vitamin D 25 Hydroxy (D3) 17.4 ng/mL (30.0-100.0)
--- NOTE | 2025-08-25 14:59 | CM.DANOTE ---
DCP Assessment Note: Pt is a 55yo male, resident of [place], is admitted for hypocalcemia and new onset of Afib with RvR. Pt lives in a house with his partner, Silvestre. Pt's Primary Care Provider is Dr. Ricardo Victoria and insurance is [employer]. Reviewed chart and discussed with multidisciplinary team pt's medical status and initial discharge needs. Per ED provider, pt to be admitted for cardiac monitoring and IV calcium. Per EMR, patient was admitted most recently on 08/13-08/18 for pneumonia and elevated troponin, was discharged home. DCP met w/patient at bedside; introduced self and role. Patient was found in bed, alert and oriented, cooperative with assessment. Pt confirmed living situation and good support in partner. Pt expressed preference in discharge home when cleared. Patient denies a history of Home health or SNF Rehab. Has Caregivers from [facility] who are scheduled to come to home 4x/week for 4hours/day; they have not restarted caregiving hours due to pt's recent admissions and C-Diff precautions. Patient confirms they are on hold and he has been working with his [facility] Insurance Processing Clerk, Karmen. Plan: Anticipating discharge home with partner to transport when medically cleared. CM team will follow closely for coordination of discharge plans. Cally Montaño [facility] Discharge Planning/Care Management CM Discharge Assessment Start: 08/25/25 09:58 Freq: Status: Active Protocol: Document 08/25/25 14:21 MW (Rec: 08/25/25 14:56 MW [id number]) Discharge Planning Assessment Assigned Discharge [facility] [place] [employer] Production Provider Dr. Ricardo Victoria Insurance Jerry DPOA/Assigned Don, Partner Designee Name Contact Information [phone] Advance Directives? Yes Advance Directives No on File History Provided By Patient,Family Member,Medical Record Has Patient been Yes admitted in last 30 days? Comment Recent admission: 08/13-08/18. Prior Living House Arrangements Household Members significant other Type of Relies on Others transporation used prior to admit Independent with ADL No 's Is patient alert and Yes oriented? Needs Assistance Bathing,Grooming,Meal Prep,Managing Medications,Home With Chores / Shopping Caregiver for No Another DME Already Rented / FWW / Walker Owned Patient/Family Home with Home Health Preference Discharge Plan Home with Home Health Transportation Partner Arrangement Referrals Initiated None needed Whiteboard Updated Yes in Patient Room with name and ext. # of Pastry Decorator Review Status In Process Please Provide Date 08/25/25 Initial DC Assessment Was Performed Next Review Type Continued Stay Review
--- NOTE | 2025-08-25 15:33 | P.PN_ITS ---
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 He notes he has continued to have diarrhea and has not yet had formed stool. In the emergency department, his rapid ventricular response resolved with IV diltiazem. He was initiated on Eliquis. He converted to a normal sinus rhythm last evening. He was asked him to discharge home earlier today. He states he has continued to have significant cramping in his hands, feet, and back and myoclonus. He is however struggling with anxiety and being in the emergency department in a window list room. He also notes he has been concerned about possible day of having MS. In aunts and cousins had is worried that some symptoms he has had in the recent past could be reflective of that. He specifically notes he has had some slurred speech. He thinks it has only been occurring since his C diff. His partner who is present thinks it may have been present a bit longer but is now more pronounced. He also has had some unsteadiness which again seems worse since C diff. Exam Vital Signs (past 8 hours): - 08/25/25 08:00 08/25/25 08:30 08/25/25 09:00 Pulse Rate 106 H 96 H 90 Respiratory Rate 15 Blood Pressure Pulse Oximetry Oxygen Delivery Method Oxygen Flow Rate Fraction of Inspired Oxygen 08/25/25 09:09 08/25/25 09:09 08/25/25 09:30 Pulse Rate 93 H 99 H Respiratory Rate 33 H 30 H Blood Pressure 120/59 L Pulse Oximetry Oxygen Delivery Method Oxygen Flow Rate Fraction of Inspired Oxygen 08/25/25 10:00 08/25/25 10:30 08/25/25 11:00 Pulse Rate 92 H 92 H 92 H Respiratory Rate 20 16 Blood Pressure Pulse Oximetry Oxygen Delivery Method Oxygen Flow Rate Fraction of Inspired Oxygen 08/25/25 11:30 08/25/25 12:17 08/25/25 12:18 Pulse Rate 100 H 99 H 99 H Respiratory Rate Blood Pressure Pulse Oximetry 98 98 Oxygen Delivery Method Oxygen Flow Rate Fraction of Inspired Oxygen 08/25/25 12:18 08/25/25 12:30 08/25/25 13:00 Pulse Rate 97 H 101 H Respiratory Rate Blood Pressure 126/72 Pulse Oximetry 98 95 Oxygen Delivery Method Room Air Oxygen Flow Rate Fraction of Inspired Oxygen 08/25/25 13:30 08/25/25 14:17 08/25/25 14:21 Pulse Rate 93 H 91 H Respiratory Rate 18 Blood Pressure Pulse Oximetry 93 99 96 Oxygen Delivery Method Room Air Oxygen Flow Rate 0 Fraction of Inspired Oxygen 21 Fraction of Inspired Oxygen 21 SaO2/FiO2 Ratio 457 Oxygen Delivery Method Room Air Oxygen Flow Rate 0 Narrative Exam Narrative: GEN: Middle-aged male, mildly anxious Alert and oriented x 3, NAD HEENT:NC, Face symmetric CHEST: Respiratory excursions symmetric, CTAB CV: RRR, no M/R/G ABD: Soft, NT/ND, BT present in all 4 quadrants, no organomegaly or masses EXTR: warm, well perfused, no C/C/nonpitting bilateral lower extremity edema with prominent varicosities SKIN: warm and dry, no rash NEURO: Alert and oriented x 3, nonfocal, his frequent myoclonic jerking Objective Labs 08/25/25 03:25 08/25/25 13:15 Labs: Laboratory Results - last 24 hr 08/24/25 08/24/25 08/24/25 19:15 21:10 21:10 WBC 10.7 RBC 3.77 L Hgb 10.6 L Hct 31.6 L MCV 83.7 MCH 28.1 MCHC 33.6 RDW 16.1 H Plt Count 332 Neut % (Auto) Not Reportable Lymph % (Auto) Not Reportable [place] % (Auto) Not Reportable Eos % (Auto) Not Reportable Baso % (Auto) Not Reportable Neut # (Auto) Lymph # (Auto) Not Reportable [place] # (Auto) Not Reportable Eos # (Auto) Baso # (Auto) Not Reportable Total Counted 100 Seg Neutrophils % 78.0 H Band Neutrophils % 3.0 Lymphocytes % (Manual) 13.0 L Monocytes % (Manual) 2.0 Eosinophils % (Manual) 2.0 Basophils % (Manual) 2.0 H Neutrophils # (Manual) 8667 H RBC Morphology Normal morphology Sodium 134 L 136 L Potassium 3.8 3.7 Chloride 97 L 99 Carbon Dioxide 24 23 BUN 32 H 31 H Creatinine 0.97 0.96 Estimated GFR > 60 > 60 BUN/Creatinine Ratio 33.0 H 32.3 H Glucose 104 H D 83 POC Whole Bld Glucose Lactate 2.3 H 0.9 Calcium 5.8 L* 6.3 L* Total Bilirubin 0.3 AST 21 ALT 20 Alkaline Phosphatase 55 Total Creatine Kinase 75 Troponin I < 0.012 Total Protein 6.8 Albumin 4.0 Globulin 2.8 Albumin/Globulin Ratio 1.4 25-OH Vitamin D Total Procalcitonin 0.287 Urine Color Yellow Urine Appearance Clear Urine pH 6.0 Normal Ur Specific [place] 1.010 Urine Protein Negative Urine Glucose (UA) 1+ H Urine Ketones Negative Urine Occult Blood Negative Urine Nitrate Negative Urine Bilirubin Negative Urine Urobilinogen 0.2 Ur Leukocyte Esterase Negative Urine RBC None seen Urine WBC None seen Ur Squamous Epith Cells None seen Urine Bacteria None seen Ur Culture Indicated? Cult not indicated Vol Urine Centrifuged 10ml (spun) U Opiates 300ng/mL cut Negative Ur Oxycodone Screen Positive H Urine Methadone Screen Negative Ur Barbiturates Screen Negative U Tricyclic Antidepress Positive H Ur Phencyclidine Scrn Negative Ur Amphetamines Screen Negative U Methamphetamines Scrn Negative Ur MDMA Scrn (Ecstasy) Negative U Benzodiazepines Scrn Positive H Urine Cocaine Screen Negative U Marijuana (THC) Screen Negative Urine Specific [place] Normal Ur Creatinine Normal 08/25/25 08/25/25 08/25/25 03:25 07:52 10:50 WBC 10.1 RBC 3.88 L Hgb 10.8 L Hct 32.5 L MCV 83.8 MCH 27.7 MCHC 33.1 RDW 16.6 H Plt Count 328 Neut % (Auto) 70.3 Lymph % (Auto) 18.8 L [place] % (Auto) 9.4 Eos % (Auto) 1.0 L Baso % (Auto) 0.5 Neut # (Auto) 7100 H Lymph # (Auto) 1900 [place]ie # (Auto) 1000 H Eos # (Auto) 100 Baso # (Auto) 0 Total Counted Seg Neutrophils % Band Neutrophils % Lymphocytes % (Manual) Monocytes % (Manual) Eosinophils % (Manual) Basophils % (Manual) Neutrophils # (Manual) RBC Morphology Sodium 138 137 Potassium 3.5 3.6 Chloride 102 109 H Carbon Dioxide 24 17 L BUN 28 H 21 H Creatinine 0.86 0.61 L Estimated GFR > 60 > 60 BUN/Creatinine Ratio 32.6 H 34.4 H Glucose 180 H 171 H POC Whole Bld Glucose 141 H Lactate Calcium 6.3 L* 5.0 L* Total Bilirubin < 0.1 L 0.4 AST 19 32 ALT 15 13 Alkaline Phosphatase 64 49 Total Creatine Kinase Troponin I Total Protein 6.2 L 5.5 L Albumin 3.6 3.0 L Globulin 2.6 2.5 Albumin/Globulin Ratio 1.4 1.2 25-OH Vitamin D Total Procalcitonin Urine Color Urine Appearance Urine pH Ur Specific [place] Urine Protein Urine Glucose (UA) Urine Ketones Urine Occult Blood Urine Nitrate Urine Bilirubin Urine Urobilinogen Ur Leukocyte Esterase Urine RBC Urine WBC Ur Squamous Epith Cells Urine Bacteria Ur Culture Indicated? Vol Urine Centrifuged U Opiates 300ng/mL cut Ur Oxycodone Screen Urine Methadone Screen Ur Barbiturates Screen U Tricyclic Antidepress Ur Phencyclidine Scrn Ur Amphetamines Screen U Methamphetamines Scrn Ur MDMA Scrn (Ecstasy) U Benzodiazepines Scrn Urine Cocaine Screen U Marijuana (THC) Screen Urine Specific [place] Ur Creatinine 08/25/25 13:15 WBC RBC Hgb Hct MCV MCH MCHC RDW Plt Count Neut % (Auto) Lymph % (Auto) [place] % (Auto) Eos % (Auto) Baso % (Auto) Neut # (Auto) Lymph # (Auto) [place] # (Auto) Eos # (Auto) Baso # (Auto) Total Counted Seg Neutrophils % Band Neutrophils % Lymphocytes % (Manual) Monocytes % (Manual) Eosinophils % (Manual) Basophils % (Manual) Neutrophils # (Manual) RBC Morphology Sodium 134 L Potassium 4.1 Chloride 101 Carbon Dioxide 22 BUN 23 H Creatinine 0.74 Estimated GFR > 60 BUN/Creatinine Ratio 31.1 H Glucose 279 H D POC Whole Bld Glucose Lactate Calcium 6.4 L* Total Bilirubin AST ALT Alkaline Phosphatase Total Creatine Kinase Troponin I Total Protein Albumin Globulin Albumin/Globulin Ratio 25-OH Vitamin D Total 17.4 L Procalcitonin Urine Color Urine Appearance Urine pH Ur Specific [place] Urine Protein Urine Glucose (UA) Urine Ketones Urine Occult Blood Urine Nitrate Urine Bilirubin Urine Urobilinogen Ur Leukocyte Esterase Urine RBC Urine WBC Ur Squamous Epith Cells Urine Bacteria Ur Culture Indicated? Vol Urine Centrifuged U Opiates 300ng/mL cut Ur Oxycodone Screen Urine Methadone Screen Ur Barbiturates Screen U Tricyclic Antidepress Ur Phencyclidine Scrn Ur Amphetamines Screen U Methamphetamines Scrn Ur MDMA Scrn (Ecstasy) U Benzodiazepines Scrn Urine Cocaine Screen U Marijuana (THC) Screen Urine Specific [place] Ur Creatinine [facility] Medical History (Updated 08/24/25 @ 22:29 by Hung Melton MD) Cold agglutinin disease Tobacco use disorder EMA (generalized anxiety disorder) OCD (obsessive compulsive disorder) Iron deficiency anemia Chronic pain syndrome Cervical stenosis of spinal canal Hypertension Hyperlipidemia Myocarditis Surgical History No pertinent past surgical history Social History marital status: unmarried,single household members: significant other lives independently: Yes occupational status: disabled alcohol intake: never substance use type: does not use Assessment & Plan Assessment & Plan narrative: 1. Severe hypocalcemia Likely secondary to GI losses and decreased oral intake. Will add oral calcium carbonate a 1000 mg 4 times daily and continue to replete IV. His corrected calcium is 5.8. Will repeat a calcium level at 5:00 p.m. today. Advised that it would be unsafe for him to discharge home at this time his current calcium level. He expresses understanding and agrees to stay. I will also check a vitamin-D level. 2. Paroxysmal atrial flutter with RVR He is now back in sinus rhythm. Suspect his significant electrolyte derangement is responsible for the arrhythmia. His CHADS2 Vasc score is 2. Is a candidate for anticoagulation. Continue Eliquis. Await echocardiogram. 3. Diabetes mellitus type 2 Blood sugars this morning were 141. On lab since that time they have ranged from 171-279. Will place on a controlled carb diet and fingersticks and sliding scale. 4. COPD/asthma No evidence of exacerbation. Continue Dulera and Spiriva. 5. Anxiety He is having significant anxiety related to his recent medical issues. Will add lorazepam as needed 6. Concern for slurred speech/imbalance/neurologic abnormality Advised that he certainly could have some challenges with speech slurring secondary to the tongue being largest muscle in the body as well as some weakness to the tongue muscle related to his severe hypocalcemia. Advised that I would wait for pursuing an MS workup until his electrolyte derangements have normalized and if his symptoms persist he could then look at having a neurologic evaluation. Code status Full Prophylaxis Eliquis Disposition Home once calcium has corrected to a safer level Time-Based Coding :: [TOTAL MINUTES] spent with patient and on the chart (including review of chart, obtaining history, exam, reviewing outside data, placing orders, documenting exam and treatment plan, and counseling patient) on [DATE].
[2025-08-25] MEDS: INSULIN LISPRO 100 UNIT/ML 3ML VIAL SUBCUT (16:58)
[2025-08-25] MEDS: BUDESONIDE 0.5 MG/2 ML NEB INH (20:19)
[2025-08-25 21:50] LABS: Blood Urea Nitrogen 25 mg/dL (9-20); Calcium 6.8 mg/dL (8.4-10.2); Carbon Dioxide 24 mmol/L (22-32); Chloride 100 mmol/L (98-107); Estimated Glomerular Filt Rate > 60 mL/min (>60); Glucose 162 mg/dL (70-99); HEMOLYSIS < 15 (0-50); Potassium 3.9 mmol/L (3.4-5.1); Sodium 134 mmol/L (137-145)
[2025-08-25] MEDS: CALCIUM GLUCONATE 9.3 MEQ in SODIUM CHLORIDE 0.9% 100 ML 120 MEQ IV (22:44)
[2025-08-26] VITALS: BP 107/53; PULSE 108; RESP 20; TEMP 36.7; O2SAT 97
[2025-08-26 04:00] VITALS: BP 105/52; PULSE 94; RESP 16; TEMP 36.9; O2SAT 94
[2025-08-26 06:05] LABS: Add Manual Diff / Slide Review NO; Hematocrit 30.3 % (41-53); Hemoglobin 10.2 g/dL (13.5-17.5); Lymphocytes Absolute Auto 1700 /uL (1100-4500); Mean Corpuscular HGB Conc 33.6 % (30-36); Mean Corpuscular Hemoglobin 28.3 PG (26-34); Mean Corpuscular Volume 84.2 fL (80-100); Platelet Count 328 X10^3/uL (150-400)
[2025-08-26 06:18] LABS: Blood Urea Nitrogen 19 mg/dL (9-20); Calcium 7.0 mg/dL (8.4-10.2); Carbon Dioxide 25 mmol/L (22-32); Chloride 101 mmol/L (98-107); Estimated Glomerular Filt Rate > 60 mL/min (>60); Glucose 193 mg/dL (70-99); HEMOLYSIS < 15 (0-50); Potassium 3.4 mmol/L (3.4-5.1); Sodium 136 mmol/L (137-145)
[2025-08-26 08:00] VITALS: BP 120/66; PULSE 88; RESP 16; TEMP 36.8; O2SAT 97
[2025-08-26 08:00] LABS: Albumin 3.6 g/dL (3.5-5.0)
[2025-08-26 08:27] VITALS: PULSE 86; RESP 16; O2SAT 100
[2025-08-26] MEDS: BUDESONIDE 0.5 MG/2 ML NEB INH (08:27)
[2025-08-26] MEDS: ALBUTEROL/IPRATROPIUM 3 ML AMPUL INH ×2 (08:27→10:43)
[2025-08-26] MEDS: CALCIUM CARBONATE 500 MG TAB 1000 MG PO (08:38)
[2025-08-26] MEDS: CALCIUM GLUCONATE 9.3 MEQ in SODIUM CHLORIDE 0.9% 50 ML 140 MEQ IV (08:38)
[2025-08-26] MEDS: FINASTERIDE 5 MG TABLET PO (08:39)
[2025-08-26] MEDS: APIXABAN 5 MG TABLET PO (08:39)
[2025-08-26] MEDS: POTASSIUM CHLORIDE 20 MEQ TAB 40 MEQ PO (08:40)
[2025-08-26] MEDS: GABAPENTIN 600 MG TABLET 1200 MG PO (08:40)
[2025-08-26] MEDS: FERROUS SULFATE 325 MG TABLET PO (08:40)
[2025-08-26] MEDS: FAMOTIDINE 20 MG TABLET PO (08:40)
[2025-08-26] MEDS: CYCLOBENZAPRINE 10 MG TABLET PO (08:40)
[2025-08-26] MEDS: SPIRONOLACTONE 25 MG TABLET PO (09:03)
--- NOTE | 2025-08-26 09:42 | PM.DS.1 ---
History of Present Illness History of Present Illness Chief complaint: Something wrong w/ bloodwork; Sent from [facility] Narrative: Per H&P: 55-year-old male with past medical history of COPD/asthma not oxygen dependent, morbid obesity, who agglutinin hemolytic anemia with prior transfusion, hypertension, diabetes with neuropathy and anxiety depression presents with cramping of the hands and feet. Per the patient's report the patient started to have increased cramping in his hands and feet with some confusion yesterday. The patient had lab work done today and was sent into our ER due to level of calcium 6.0. The albumin at that time was 3.4. Recently the patient had C. difficile related diarrhea and was treated for 5 weeks. The patient states that he still has some loose stools that is normal morning but overall improving. The patient also was nausea but denies any vomiting. Otherwise the patient denies any fever, chills, abdominal pain, chest pain, dysuria, coughing or syncope. In the emergency room, the patient was hemodynamically stable. Calcium was repeated and was 5.8. Calcium gluconate 2 g was given and repeat was 6.3. Lactate was 2.3 but repeat was 0.9 with IV fluid. Patient also was in the A-flutter with RVR. Heart rate was in the 1-1 60. IV diltiazem push was given and patient converted back to normal sinus rhythm. Due to ongoing hypocalcemia ER physician requested admission for replacement. Discharge Providers Provider Date of admission: 08/24/25 22:22 Discharge Date: 08/26/25 Primary care physician: Ricardo Victoria MD Discharge provider: Preeti Alonso MD Summary Hospital Course Discharge Diagnosis: 1. Severe hypocalcemia, improving 2. Vitamin-D deficiency 3. Paroxysmal atrial flutter 4. Diabetes mellitus type 2 5. COPD/asthma without exacerbation 6. Anxiety 7. Concern for slurred speech/imbalance/neurologic abnormality Hospital Course: Patient was admitted with severe hypocalcemia and new diagnosis of vitamin-D deficiency as well as paroxysmal atrial flutter after recent bout of severe C diff colitis. He was treated for 5 weeks. During that time he had decreased oral intake and profuse diarrhea. On admission, his calcium level was 6.0 and reached a robyn of 5.0. With aggressive repletion it was up to 7.0 at the time of discharge. Corrected it was 7.8. Vitamin-D level was done and was found to be low at 17.4. He did have significant muscular cramping and myoclonus. He was also found to have atrial flutter, likely triggered by his electrolyte derangements. He was admitted for further treatment care. His atrial flutter resolved quickly after he was rate controlled. He received multiple public relations writer's of IV calcium gluconate and subsequently oral calcium carbonate. His chads 2 Vasc score was 3, and it was recommended he be maintained on Eliquis at discharge. He agreed. He is discharged in stable condition. Status at Discharge Cognitive/behavioral status at discharge: at baseline, oriented Functional status at discharge: independent ambulation Overall status at discharge: patient is progressing back to baseline Time Spent with Patient Time spent: Greater than 30 minutes Exam Vital Signs (past 8 hours): - 08/26/25 04:00 08/26/25 08:00 08/26/25 08:27 Temperature 98.5 F 98.2 F Pulse Rate 94 H 88 86 Respiratory Rate 16 16 16 Blood Pressure 105/52 L 120/66 Pulse Oximetry 94 97 100 Oxygen Delivery Method Room Air Oxygen Flow Rate 0 0 Fraction of Inspired Oxygen 21 SaO2/FiO2 Ratio 457 Oxygen Delivery Method Room Air Oxygen Flow Rate 0 Narrative Exam Narrative: GEN: Middle-aged male, very pleasant, Alert and oriented x 3, NAD HEENT:NC, Face symmetric CHEST: Respiratory excursions symmetric, CTAB CV: RRR, no M/R/G ABD: Soft, NT/ND, BT present in all 4 quadrants, body habitus limits exam EXTR: warm, well perfused, no C/C/nonpitting bilateral lower extremity edema with prominent varicosities left lower extremity with moderate erythema (patient's baseline) SKIN: warm and dry, no rash NEURO: Alert and oriented x 3, nonfocal, myoclonus has resolved, he does have tremors of his hands (he has just received a nebulizer not too long ago and reports this is a common response) Objective Labs 08/26/25 04:22 08/26/25 04:22 Labs: Laboratory Results - last 24 hr 08/25/25 08/25/25 08/25/25 10:50 13:15 16:37 WBC RBC Hgb Hct MCV MCH MCHC RDW Plt Count Neut % (Auto) Lymph % (Auto) [place] % (Auto) Eos % (Auto) Baso % (Auto) Neut # (Auto) Lymph # (Auto) [place] # (Auto) Eos # (Auto) Baso # (Auto) Sodium 137 134 L Potassium 3.6 4.1 Chloride 109 H 101 Carbon Dioxide 17 L 22 BUN 21 H 23 H Creatinine 0.61 L 0.74 Estimated GFR > 60 > 60 BUN/Creatinine Ratio 34.4 H 31.1 H Glucose 171 H 279 H D POC Whole Bld Glucose 275 H D Calcium 5.0 L* 6.4 L* Total Bilirubin 0.4 AST 32 ALT 13 Alkaline Phosphatase 49 Total Protein 5.5 L Albumin 3.0 L Globulin 2.5 Albumin/Globulin Ratio 1.2 25-OH Vitamin D Total 17.4 L 08/25/25 08/25/25 08/26/25 20:31 21:07 04:22 WBC 7.7 RBC 3.60 L Hgb 10.2 L Hct 30.3 L MCV 84.2 MCH 28.3 MCHC 33.6 RDW 15.8 H Plt Count 328 Neut % (Auto) 67.2 Lymph % (Auto) 22.1 L [place] % (Auto) 9.4 Eos % (Auto) 0.9 L Baso % (Auto) 0.4 Neut # (Auto) 5200 Lymph # (Auto) 1700 [place] # (Auto) 700 Eos # (Auto) 100 Baso # (Auto) 0 Sodium 134 L 136 L Potassium 3.9 3.4 Chloride 100 101 Carbon Dioxide 24 25 BUN 25 H 19 Creatinine 0.80 0.70 Estimated GFR > 60 > 60 BUN/Creatinine Ratio 31.3 H 27.1 H Glucose 162 H D 193 H POC Whole Bld Glucose 177 H Calcium 6.8 L 7.0 L Total Bilirubin AST ALT Alkaline Phosphatase Total Protein Albumin 3.6 Globulin Albumin/Globulin Ratio 25-OH Vitamin D Total 08/26/25 07:58 WBC RBC Hgb Hct MCV MCH MCHC RDW Plt Count Neut % (Auto) Lymph % (Auto) [place] % (Auto) Eos % (Auto) Baso % (Auto) Neut # (Auto) Lymph # (Auto) [place] # (Auto) Eos # (Auto) Baso # (Auto) Sodium Potassium Chloride Carbon Dioxide BUN Creatinine Estimated GFR BUN/Creatinine Ratio Glucose POC Whole Bld Glucose 143 H Calcium Total Bilirubin AST ALT Alkaline Phosphatase Total Protein Albumin Globulin Albumin/Globulin Ratio 25-OH Vitamin D Total [facility] Medical History (Updated 08/24/25 @ 22:29 by Hung Melton MD) Cold agglutinin disease Tobacco use disorder EMA (generalized anxiety disorder) OCD (obsessive compulsive disorder) Iron deficiency anemia Chronic pain syndrome Cervical stenosis of spinal canal Hypertension Hyperlipidemia Myocarditis Surgical History No pertinent past surgical history Social History marital status: unmarried,single household members: significant other lives independently: Yes occupational status: disabled Smoking Status: Former smoker alcohol intake: never substance use type: does not use Discharge Plan Discharge Plan Patient Disposition: Home Provider Discharge Comment: You were admitted with new onset of atrial flutter. This is a heart rhythm that does increase your risk for stroke. You were initiated on Eliquis. You will continue that indefinitely to reduce stroke risk. Please monitor your stool for occult bleeding. If you see black or tarry stool, that is potential indication of bleeding; If have vomiting and it appears to look like coffee grounds, that is evidence of bleeding. Additionally, if you have uncontrolled nosebleed or cuts, that do not resolve with direct pressure, please present to the emergency department. If you have recurrent atrial flutter, you should have an echocardiogram to check your heart. One was not done during this hospital stay as it was felt the arrhythmia was due to your electrolyte abnormalities. Additionally, you had very low calcium levels, likely secondary to poor nutrition over the last 5 weeks while you have had C diff. Additionally you were found to be vitamin-D deficient. Your low calcium levels likely contributed to your muscle twitching and cramping. This is much improved today. I have recommend you continue oral Tums twice a day for the next week or 2. You should then have follow-up blood work done by Dr. Victoria. You should not continue taking Tums indefinitely without a recheck as this would put you at risk for kidney stones. Additionally, you were found to have vitamin-D deficiency. As we discussed, you should take oral vitamin-D 2238-0856 units daily. You did bring up concerns about lungs standing neurologic difficulties and your worry that you could have an underlying neurologic issue such as MS. If you continue to feel as though you have difficulties with speech and balance issues, would recommend you seek a referral to neurology for further evaluation. Dr. Victoria can help you with this. Return to the ED: Increased shortness of breath/chest pain. Inability to hold down food/fluids/medications. Fevers/chills. Discharge orders & Medications Prescriptions: New Eliquis 5 mg Tablet 5 mg PO BID Qty: 60 0RF Continued trazodone 150 mg tablet 150 mg PO BEDTIME PRN (Reason: insomnia) Qty: 30 2RF nicotine 14 mg/24 hr patch 24 hour 1 patch transdermal DAILY Qty: 28 2RF Rx Instructions: remove one hour before bedtime albuterol sulfate 90 mcg/actuation HFA aerosol inhaler See Rx Instructions .ROUTE .COMPLEX Qty: 8.5 5RF Dose Instruction: inhale 2 puffs by mouth every 6 hours if needed for shortness of breath or wheezing Rx Instructions: inhale 2 puffs by mouth every 6 hours if needed for shortness of breath or wheezing ferrous gluconate 324 mg (37.5 mg iron) tablet 324 mg PO DAILY Qty: 90 3RF finasteride 5 mg tablet 5 mg PO DAILY Qty: 90 1RF Rx Instructions: take 1 tablet by mouth once daily Dulera 200-5 mcg/actuation HFA aerosol inhaler See Rx Instructions .ROUTE .COMPLEX Qty: 13 6RF Dose Instruction: inhale 2 puffs by mouth and INTO THE LUNGS twice a day Rx Instructions: inhale 2 puffs by mouth and INTO THE LUNGS twice a day buprenorphine-naloxone [Suboxone] 2-0.5 mg film See Rx Instructions buccal .COMPLEX Qty: 30 0RF Rx Instructions: place 1/2 strip/tab under side of tongue three times daily until you see provider. Patient under close supervision of PCP, specialist, and rifle case repairer diazepam 2 mg tablet 4 mg PO BEDTIME PRN (Reason: sleep) Qty: 60 1RF ondansetron 4 mg tablet,disintegrating 4 mg PO Q6H PRN (Reason: nausea and vomiting) Qty: 30 0RF oxycodone-acetaminophen [Percocet] 10-325 mg tablet See Rx Instructions PO .COMPLEX PRN (Reason: pain) Qty: 180 0RF Rx Instructions: take 2 tablets by mouth every 4 hours if needed for pain. Qvar RediHaler 80 mcg/actuation HFA aerosol breath activated 1 inh inhalation Q12H Qty: 10.6 2RF epinephrine [EpiPen 2-Nura] 0.3 mg/0.3 mL auto-injector 0.3 mg IM SEE INSTRUCTIONS Qty: 2 5RF spironolactone 25 mg tablet 25 mg PO BID gabapentin 600 mg tablet 1,200 mg PO TID Qty: 240 3RF famotidine 20 mg tablet 20 mg PO BID dapagliflozin propanediol 10 mg tablet 10 mg PO DAILY glimepiride 4 mg tablet 8 mg PO BID Qty: 240 0RF naloxone 4 mg/actuation spray,non-aerosol 1 spray intranasal .Once furosemide 40 mg tablet See Rx Instructions .ROUTE .COMPLEX PRN (Reason: Swelling) Rx Instructions: 1-2 tabs as needed for swelling tiotropium bromide [Spiriva with HandiHaler] 18 mcg capsule, w/inhalation device See Rx Instructions .ROUTE .COMPLEX Rx Instructions: inhale THE contents of 1 capsule in THE HANDIHALER once daily x2 puffs am and x2 puffs hs metformin 500 mg tablet See Rx Instructions .ROUTE .COMPLEX Patient Comments: three tablets in the a.m. Rx Instructions: take 2 tablets by mouth 1700 prednisone 10 mg tablet 10 mg PO DAILY Discontinued amlodipine 10 mg tablet 10 mg PO DAILY Qty: 90 1RF Rx Instructions: take 1 tablet by mouth once daily cyclobenzaprine 10 mg tablet 10 mg PO TID PRN (Reason: muscle spasm) Qty: 180 3RF Rx Instructions: take 1 tablet by mouth three times a day if needed for SPASM(S) Eliquis 5 mg tablet 5 mg PO BID Qty: 180 0RF losartan 100 mg tablet 50 mg PO DAILY Follow up/Referrals: Ricardo Victoria MD [Primary Care Provider, Family Practice] Diet/Activity/Treatments Diet: Diet as Tolerated and Regular Activity: As tolerated Oxygen: N/A Visit Report/Discharge Packet Instructions: Vitamin D Deficiency, DI for Atrial Flutter, DI for Hypocalcemia Stand Alone Forms: Patient Portal/API, Stroke Signs & Symptoms Discharge Data Primary Care Provider: Ricardo Victoria Quality VTE Deep Vein Thrombosis/Pulmonary Embolism Present on Admission: No
[2025-08-26 10:43] VITALS: PULSE 97; RESP 16; O2SAT 100
--- NOTE | 2025-08-26 12:41 | PC.NURSE ---
Pt discharged home at 1230, escorted off floor in wheelchair accompanied by hospital staff. IV removed, discharge teaching completed including new medications, worsening symptoms and follow up appointment. Patient left the room with all belongings.
[2025-08-27 20:35] LABS: Parathyroid Hormone, Intact 26 pg/mL (15-65)
== END 2025-08-26 12:42 | disposition home or self-care (01) ==
LOC: ED 17:40 → AC 22:29
PROVIDERS: Family Medicine; Admitting Provider Internal Medicine; Emergency Provider Emergency Medicine; PCP Family Medicine; Referring Provider Emergency Medicine; Visit Provider Internal Medicine
DX: E83.51 Hypocalcemia (principal); I48.91 Unspecified atrial fibrillation; E11.21 Type 2 diabetes mellitus with diabetic nephropathy; I10 Essential (primary) hypertension; D58.9 Hereditary hemolytic anemia, unspecified; E66.01 Morbid (severe) obesity due to excess calories; J44.9 Chronic obstructive pulmonary disease, unspecified; J45.909 Unspecified asthma, uncomplicated; F17.210 Nicotine dependence, cigarettes, uncomplicated; F41.9 Anxiety disorder, unspecified; F32.A Depression, unspecified; F42.9 Obsessive-compulsive disorder, unspecified; Z79.84 Long term (current) use of oral hypoglycemic drugs; R19.7 Diarrhea, unspecified; I48.92 Unspecified atrial flutter
CPT/HCPCS: 36415; 80048; 80053; 80305; 81001; 82040; 82306; 82310; 82330; 82550; 82962; 83605; 83970; 84145; 84484; 85007; 85025; 93005; 94640; 96365; 96366; 96375; 96376; 99284; G0378; A9270; J0612; J1171; J1815; J2405; J7030; J7050

== ENCOUNTER 2025-08-27 09:34 | Emergency (ER) | payer OTHER, SELFPAY ==
[2025-05-23 17:12] VITALS: PULSE 106; RESP 24; O2SAT 94
[2025-08-25 16:48] VITALS: BMI 34.2
[2025-08-27] VITALS (14 sets, daily range): BP systolic 103–125; BP diastolic 60–80; PULSE 83–107; RESP 14–22; TEMP 36.6; O2SAT 93–99; BMI 34.2
--- NOTE | 2025-08-27 09:53 | PC.NURSE ---
Patient placed in contact enteric precautions.
--- NOTE | 2025-08-27 10:03 | ED.EXTPRO ---
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 Patient notes he was recently hospitalized discharged yesterday at [phone] for hypocalcemia in atrial flutter patient notes he has been having diarrhea they attempted to test him on his last day here but was too formed you states it has been more liquidy. Has been complaint today is muscle spasms which he relates to likely having low calcium. Patient states he was discharged yesterday was improved but overnight started having increasing muscle spasm his back, extremities and neck. He notes when his blood pressure cuff went off his arm starts to spasm and he started having when he had describes as difficulty twitching and spasm of his hands. Patient states this started recently when he was diagnosed with C diff his physician told him that has levels has been low before but significantly dropped after having copious diarrhea in his vitamin-D and magnesium levels were all low. Patient denies any fevers. No chest pain or shortness of breath. No nausea or vomiting. He notes he had an episode of diarrhea today but states he has not been having consistent diarrhea. He has did state it has a little bit foul odor. He does not think that his C diff his back but does have some concern. Denies any new urinary symptoms. Patient states he is on medications for pain, muscle relaxer, neuropathy, inhaler for COPD, states he does not take anything for blood pressure but does take Eliquis for prior blood clot in his leg followed by atrial fibrillation. Patient has multiple medication allergies. Former smoker, occasional alcohol, no recreational drugs. Dr. Victoria is his primary care physician. Related Data Home Medications ?Medication ?Instructions ?Recorded ?Confirmed spironolactone 25 mg tablet 25 mg PO BID 12/28/23 08/24/25 furosemide 40 mg tablet See Rx Instructions .Route 06/10/24 08/24/25 .COMPLEX PRN Swelling tiotropium bromide 18 mcg capsule See Rx Instructions .Route .COMPLEX 05/18/25 08/24/25 with inhalation device (Spiriva with HandiHaler) dapagliflozin propanediol 10 mg 10 mg PO DAILY 06/14/25 08/24/25 tablet famotidine 20 mg tablet 20 mg PO BID 06/14/25 08/24/25 metformin 500 mg tablet See Rx Instructions .Route .COMPLEX 07/02/25 08/24/25 prednisone 10 mg tablet 10 mg PO DAILY 07/02/25 08/24/25 naloxone 4 mg/actuation nasal spray 1 spray intranasal .Once 07/25/25 08/24/25 Previous Rx's ?Medication ?Instructions ?Recorded epinephrine 0.3 mg/0.3 mL 0.3 mg (0.3 mL) IM SEE 07/17/19 injection, auto-injector (EpiPen INSTRUCTIONS #2 ea 2-Nura) albuterol sulfate 90 mcg/actuation See Rx Instructions .Route 01/31/25 aerosol inhaler .COMPLEX #8.5 grams ferrous gluconate 324 mg (37.5 mg 324 mg PO DAILY #90 tabs 01/31/25 iron) tablet finasteride 5 mg tablet 5 mg PO DAILY #90 tabs 01/31/25 gabapentin 600 mg tablet 1,200 mg (2 x 600 mg) PO TID #240 02/27/25 tabs mometasone-formoterol HFA 200 See Rx Instructions .Route 05/07/25 mcg-5 mcg/actuation aerosol .COMPLEX #13 grams inhaler (Dulera) nicotine 14 mg/24 hr daily 1 patch transdermal DAILY #28 ea 05/16/25 transdermal patch trazodone 150 mg tablet 150 mg PO BEDTIME PRN insomnia #30 05/16/25 tabs buprenorphine 2 mg-naloxone 0.5 mg See Rx Instructions buccal 07/05/25 sublingual film (Suboxone) .COMPLEX #30 ea diazepam 2 mg tablet 4 mg (2 x 2 mg) PO BEDTIME PRN 07/20/25 sleep #60 tabs ondansetron 4 mg disintegrating 4 mg PO Q6H PRN nausea and 08/21/25 tablet vomiting #30 tabs oxycodone-acetaminophen 10 mg-325 See Rx Instructions PO .COMPLEX 08/21/25 mg tablet (Percocet) PRN pain #180 tabs beclomethasone dipropionate 80 1 inh inhalation Q12H #10.6 grams 08/22/25 mcg/actuation HFA breath activated aerosol (Qvar RediHaler) glimepiride 4 mg tablet 8 mg (2 x 4 mg) PO BID #240 tabs 08/23/25 apixaban 5 mg tablet (Eliquis) 5 mg PO BID #60 tabs 08/26/25 magnesium oxide 400 mg PO DAILY #30 caps 08/27/25 Allergies Allergy/AdvReac Type Severity Reaction Status Date / Time Penicillins (PENICILLINS) Allergy Severe Facial/mouth Verified 08/27/25 09:50 numbness, mouth/lip swelling clindamycin Allergy Intermediate Verified 08/27/25 09:50 cephalexin (CEPHALEXIN) Allergy Mild FACIAL Verified 08/27/25 09:50 SWELLING terbinafine (TERBINAFINE) Allergy Unknown Unknown Verified 08/27/25 09:50 nut - unspecified Allergy Anaphylaxis Verified 08/27/25 09:50 benralizumab (From Fasenra) AdvReac Severe SOB Verified 08/27/25 09:50 Cephalosporins AdvReac Intermediate Vomiting Verified 08/27/25 09:50 (CEPHALOSPORINS) Beta-Blockers AdvReac Mild ASTHMA Verified 08/27/25 09:50 (Beta-Adrenergic Bloc nadolol (NADOLOL) AdvReac Mild AGGREVATES Verified 08/27/25 09:50 ASTHMA semaglutide (From Ozempic) AdvReac Mild CONSTIPATIO Verified 08/27/25 09:50 N Sulfa (Sulfonamide AdvReac Mild VOMITING Verified 08/27/25 09:50 Antibiotics) (SULFA (SULFONAMIDE ANTIBIOTICS)) Review of Systems Review of Systems ROS Unobtainable: All systems reviewed & are unremarkable except as noted in HPI and below Patient History Medical History Cold agglutinin disease Tobacco use disorder EMA (generalized anxiety disorder) OCD (obsessive compulsive disorder) Iron deficiency anemia Chronic pain syndrome Cervical stenosis of spinal canal Hypertension Hyperlipidemia Myocarditis Surgical History No pertinent past surgical history Social History marital status: unmarried,single household members: significant other lives independently: Yes occupational status: disabled alcohol intake: never substance use type: does not use tobacco type: cigarettes alcohol intake frequency: other Exam Narrative Exam Narrative: GENERAL: Alert and oriented x three, male in mild distress HEENT: Head normocephalic, atraumatic, EOMI, pupils reactive, face symmetric, moist mucous membranes NECK: Supple, full range of motion CARDIOVASCULAR: Regular rate and rhythm without murmurs, rubs or gallops. No JVD. RESPIRATORY: Breath sounds equal bilaterally, no wheezes rales or rhonchi. No tachypnea or accessory muscle use ABDOMEN: Soft, nontender. Normoactive bowel sounds all 4 quadrants. No guarding or rebound, rigidity, no mass : No CVA tenderness EXTREMITIES: Normal range of motion, no clubbing or edema. Neurovascularly intact NEUROLOGICAL: Cranial nerves II through XII grossly intact. Moving all extremities, patient does have some occasional twitching of the extremities and muscle spasm. SKIN: Warm, dry, no petechiae, no rashes or lesions. Initial Vital Signs Initial Vital Signs: Vital Signs Pulse Rate 107 H 08/27/25 09:46 Pulse Oximetry 95 08/27/25 09:46 Course Orders Ordered: ED Orders 08/27/25 10:05 EKG-12 Lead Stat 08/27/25 10:20 CBC Auto Diff [Complete Blood Count AUTO DIFF] Stat CMP [Comprehensive Metabolic Panel] Stat MAG [Magnesium] Stat Procalcitonin Stat 08/27/25 11:30 Chest [XR chest 1V] Stat 08/27/25 11:59 CT abdomen pelvis w con Stat 08/27/25 12:50 Blood Culture Stat 08/27/25 13:00 Lactate (Lactic Acid) Stat Discontinued Medications Calcium Carbonate (Calcium Carbonate 500 Mg Tab) 1,000 mg PO NOW ONE Stop: 08/27/25 13:29 Last Admin: 08/27/25 13:36 Dose: 1,000 mg Documented By: ROMANA Sodium Chloride (Normal Saline 0.9%) 1,000 mls @ 1,000 mls/hr IV BOLUS ONE Stop: 08/27/25 12:28 Last Infusion: 08/27/25 14:09 Dose: Infused Documented By: Admin: 08/27/25 12:31 Dose: 1,000 mls/hr Documented By: STELLA Calcium Gluconate 9.3 meq/ (Sodium Chloride) 70 mls @ 140 mls/hr IV NOW ONE Stop: 08/27/25 12:01 Last Infusion: 08/27/25 13:36 Dose: Infused Documented By: Admin: 08/27/25 12:32 Dose: 140 mls/hr Documented By: STELLA Magnesium Sulfate (Magnesium Sulfate) 4 gm in 100 mls @ 100 mls/hr IV NOW ONE Stop: 08/27/25 12:44 Last Admin: 08/27/25 13:32 Dose: 100 mls/hr Documented By: ROMANA Co-signed By: JADA Ondansetron HCl (Ondansetron 4 Mg/2 Ml Inj) 4 mg IV NOW ONE Stop: 08/27/25 13:26 Last Admin: 08/27/25 13:33 Dose: 4 mg Documented By: ROMANA Ondansetron HCl (Ondansetron 4 Mg/2 Ml Inj) 4 mg IV NOW ONE Stop: 08/27/25 13:29 Vital Signs Vital signs: Vital Signs - 8 hr 08/27/25 09:46 08/27/25 09:49 08/27/25 10:00 Temperature 98 F Pulse Rate 107 H 102 H 96 H Respiratory Rate 17 Blood Pressure 119/60 Pulse Oximetry 95 98 95 Oxygen Delivery Method Room Air 08/27/25 10:05 08/27/25 10:05 08/27/25 10:50 Temperature Pulse Rate 100 H 100 H Respiratory Rate 16 Blood Pressure 125/60 Pulse Oximetry 98 98 Oxygen Delivery Method 08/27/25 11:00 08/27/25 11:30 08/27/25 12:00 Temperature Pulse Rate 104 H 106 H 91 H Respiratory Rate Blood Pressure Pulse Oximetry 98 94 94 Oxygen Delivery Method 08/27/25 12:30 08/27/25 12:45 08/27/25 12:45 Temperature Pulse Rate 94 H 90 Respiratory Rate 16 Blood Pressure 121/62 Pulse Oximetry 95 99 Oxygen Delivery Method 08/27/25 13:00 08/27/25 13:00 08/27/25 13:30 Temperature Pulse Rate 86 Respiratory Rate 22 Blood Pressure 103/61 106/80 Pulse Oximetry 95 Oxygen Delivery Method 08/27/25 13:30 08/27/25 14:00 08/27/25 14:00 Temperature Pulse Rate 88 83 Respiratory Rate 20 15 Blood Pressure 116/64 Pulse Oximetry 96 93 Oxygen Delivery Method 08/27/25 14:30 08/27/25 14:30 Temperature Pulse Rate 83 Respiratory Rate 14 Blood Pressure 119/62 Pulse Oximetry 95 Oxygen Delivery Method MDM - Extremity (Nontraumatic) Lab Data 08/27/25 10:20 08/27/25 10:20 Labs: Lab Results 08/27/25 08/27/25 Range/Units 10:20 13:00 WBC 17.6 H D (4.5-11.0) X10^3/uL RBC 3.87 L (4.5-5.9) X10^6/uL Hgb 10.5 L (13.5-17.5) g/dL Hct 32.7 L (41-53) % MCV 84.5 (80-100) fL MCH 27.2 (26-34) PG MCHC 32.2 (30-36) % RDW 16.3 H (11.6-14.8) % Plt Count 379 (150-400) X10^3/uL Neut % (Auto) 87.1 H (50-75) % Lymph % (Auto) 5.8 L (25-40) % [place] % (Auto) 6.1 (3-14) % Eos % (Auto) 0.6 L (2-4) % Baso % (Auto) 0.4 (0-2) % Neut # (Auto) 77967 H (4816-7861) /uL Lymph # (Auto) 1000 L (6607-5709) /uL [place] # (Auto) 1100 H (0-900) /uL Eos # (Auto) 100 (0-450) /uL Baso # (Auto) 100 (0-100) /uL Sodium 135 L (137-145) mmol/L Potassium 4.5 (3.4-5.1) mmol/L Chloride 98 (98-107) mmol/L Carbon Dioxide 28 (22-32) mmol/L BUN 31 H (9-20) mg/dL Creatinine 0.81 (0.66-1.25) mg/dL Estimated GFR > 60 (>60) mL/min BUN/Creatinine Ratio 38.3 H (6-22) Glucose 212 H (70-99) mg/dL Lactate 0.6 L (0.7-2.1) mmol/L Calcium 8.2 L (8.4-10.2) mg/dL Magnesium 0.5 L* (1.6-2.3) mg/dL Total Bilirubin 0.3 (0.2-1.3) mg/dL AST 26 (17-59) IU/L ALT 23 (<50) IU/L Alkaline Phosphatase 72 (38-126) U/L Total Protein 6.9 (6.3-8.2) g/dL Albumin 4.0 (3.5-5.0) g/dL Globulin 2.9 (1.7-4.1) g/dL Albumin/Globulin Ratio 1.4 (1.0-2.8) Procalcitonin 0.145 (<0.5) ng/mL Urine Dip Bedside Urine Glucose Negative Bedside Urine Bilirubin - Negative Bedside Urine Ketone - Negative Urine Specific [place] 1.005 Bedside Urine Occult Blood - Negative Bedside Urine pH 6.5 Bedside Urine Protein - Negative Bedside Urine Urobilinogen - Negative Bedside Urine Nitrite - Negative Bedside Urine Leukocytes - Negative Esterase MDM Narrative Medical decision making narrative: Labs show white count of 17.6 hemoglobin of 10.5 platelets are 379. Chemistries show a magnesium at 0.5, calcium is 8.2 improved from his most recent, glucose is 212 BUN 31 sodium is 135 otherwise normal electrolytes and creatinine. Lactate is 0.6, procalcitonin 0.14, blood cultures are pending. Point of care urine is negative Patient does have a PTH and ionized calcium pending. EKG, sinus rhythm premature atrial complexes rate of 95 [place] 176 QRS 84 QTC of 419, no acute ST depression, patient has some J-point elevation V2 V1, prior EKG shows sinus rhythm rate of 100 on 08/24/2025. Chest x-ray shows no acute cardiopulmonary abnormality. CT abdomen pelvis shows large stool burden, correlate for constipation otherwise no significant colonic abnormalities. Mild urinary bladder wall thickening similar to prior correlate has been some urinalysis. Patient has a IV magnesium, IV calcium gluconate, Zofran and fluids. Spoke with the hospitalist about admission free current electrolyte abnormalities calcium has not improved but magnesium is critically low. Spoke with Dr. Kerr, hospitalist we would recommend 4 g of magnesium, 2 g of calcium, fluids and asked add a chest x-ray on this patient does have little bit of a white count. Discussed patient has not been having a lot of other infectious symptoms. Discussed with the patient he feels that he is improving during his stay here we reviewed his findings did have some additional workup with the imaging as his white count was elevated from prior visit but no clear source has been found in his workup thus far. Patient would prefer to return home. Discharge Plan Departure Patient Disposition: Home Clinical Impression: Hypomagnesemia, Hypocalcemia, Muscle spasm Instructions: DI for Hypocalcemia Activity Restrictions/Additional Instructions: Follow up for recheck in the next few days. I would recommend having your labs rechecked with your physician in the next 2-3 days also. Your Calcium was trending upwards but your magnesium level was quite low. Continue with the recommendations from your physicians on discharge but I would recommend adding magnesium oxide 400 mg daily. Prescription was sent to [facility]. Please return if you are having any other recurrent muscle spasms, fevers, new chest pain or shortness of breath, any persistent vomiting, any persistent diarrhea, black or bloody stools, new urinary symptoms or other new or concerning changes. Prescriptions: New magnesium oxide 400 mg magnesium capsule 400 mg PO DAILY Qty: 30 0RF No Action trazodone 150 mg tablet 150 mg PO BEDTIME PRN (Reason: insomnia) Qty: 30 2RF nicotine 14 mg/24 hr patch 24 hour 1 patch transdermal DAILY Qty: 28 2RF Rx Instructions: remove one hour before bedtime albuterol sulfate 90 mcg/actuation HFA aerosol inhaler See Rx Instructions .ROUTE .COMPLEX Qty: 8.5 5RF Dose Instruction: inhale 2 puffs by mouth every 6 hours if needed for shortness of breath or wheezing Rx Instructions: inhale 2 puffs by mouth every 6 hours if needed for shortness of breath or wheezing ferrous gluconate 324 mg (37.5 mg iron) tablet 324 mg PO DAILY Qty: 90 3RF finasteride 5 mg tablet 5 mg PO DAILY Qty: 90 1RF Rx Instructions: take 1 tablet by mouth once daily Dulera 200-5 mcg/actuation HFA aerosol inhaler See Rx Instructions .ROUTE .COMPLEX Qty: 13 6RF Dose Instruction: inhale 2 puffs by mouth and INTO THE LUNGS twice a day Rx Instructions: inhale 2 puffs by mouth and INTO THE LUNGS twice a day buprenorphine-naloxone [Suboxone] 2-0.5 mg film See Rx Instructions buccal .COMPLEX Qty: 30 0RF Rx Instructions: place 1/2 strip/tab under side of tongue three times daily until you see provider. Patient under close supervision of PCP, specialist, and case therapist diazepam 2 mg tablet 4 mg PO BEDTIME PRN (Reason: sleep) Qty: 60 1RF ondansetron 4 mg tablet,disintegrating 4 mg PO Q6H PRN (Reason: nausea and vomiting) Qty: 30 0RF oxycodone-acetaminophen [Percocet] 10-325 mg tablet See Rx Instructions PO .COMPLEX PRN (Reason: pain) Qty: 180 0RF Rx Instructions: take 2 tablets by mouth every 4 hours if needed for pain. Qvar RediHaler 80 mcg/actuation HFA aerosol breath activated 1 inh inhalation Q12H Qty: 10.6 2RF epinephrine [EpiPen 2-Nura] 0.3 mg/0.3 mL auto-injector 0.3 mg IM SEE INSTRUCTIONS Qty: 2 5RF spironolactone 25 mg tablet 25 mg PO BID gabapentin 600 mg tablet 1,200 mg PO TID Qty: 240 3RF famotidine 20 mg tablet 20 mg PO BID dapagliflozin propanediol 10 mg tablet 10 mg PO DAILY glimepiride 4 mg tablet 8 mg PO BID Qty: 240 0RF naloxone 4 mg/actuation spray,non-aerosol 1 spray intranasal .Once Eliquis 5 mg Tablet 5 mg PO BID Qty: 60 0RF furosemide 40 mg tablet See Rx Instructions .ROUTE .COMPLEX PRN (Reason: Swelling) Rx Instructions: 1-2 tabs as needed for swelling tiotropium bromide [Spiriva with HandiHaler] 18 mcg capsule, w/inhalation device See Rx Instructions .ROUTE .COMPLEX Rx Instructions: inhale THE contents of 1 capsule in THE HANDIHALER once daily x2 puffs am and x2 puffs hs metformin 500 mg tablet See Rx Instructions .ROUTE .COMPLEX Patient Comments: three tablets in the a.m. Rx Instructions: take 2 tablets by mouth 1700 prednisone 10 mg tablet 10 mg PO DAILY Referrals: Ricardo Victoria MD [Primary Care Provider, Family Practice] Stand Alone Forms: Patient Portal/API
--- NOTE | 2025-08-27 10:05 | EKG_ITS ---
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
[2025-08-27 11:02] LABS: Add Manual Diff / Slide Review NO; Hematocrit 32.7 % (41-53); Hemoglobin 10.5 g/dL (13.5-17.5); Lymphocytes Absolute Auto 1000 /uL (1100-4500); Mean Corpuscular HGB Conc 32.2 % (30-36); Mean Corpuscular Hemoglobin 27.2 PG (26-34); Mean Corpuscular Volume 84.5 fL (80-100); Platelet Count 379 X10^3/uL (150-400)
[2025-08-27 11:14] LABS: Alanine Aminotransferase 23 IU/L (<50); Albumin 4.0 g/dL (3.5-5.0); Albumin Globulin Ratio 1.4 (1.0-2.8); Alkaline Phosphatase 72 U/L (38-126); Blood Urea Nitrogen 31 mg/dL (9-20); Calcium 8.2 mg/dL (8.4-10.2); Carbon Dioxide 28 mmol/L (22-32); Chloride 98 mmol/L (98-107); Estimated Glomerular Filt Rate > 60 mL/min (>60); Globulin 2.9 g/dL (1.7-4.1); Glucose 212 mg/dL (70-99); HEMOLYSIS 16 (0-50); Potassium 4.5 mmol/L (3.4-5.1); Sodium 135 mmol/L (137-145); Total Protein 6.9 g/dL (6.3-8.2)
[2025-08-27 11:20] LABS: Magnesium 0.5 mg/dL (1.6-2.3)
--- NOTE | 2025-08-27 11:30 | DI.RAD.S_ITS ---
PROCEDURE: XR CHEST 1V INDICATIONS: elevated TECHNIQUE: One view of the chest was acquired. COMPARISON: [facility], CR, XR CHEST 1V, 08/13/2025, 9:30. [facility], CR, XR CHEST 2V, 07/02/2025, 1:25. FINDINGS: Surgical changes and devices: None. Lungs and pleura: Lungs are clear. No pleural effusions or pneumothorax. Mediastinum: Mediastinal contours appear normal. Heart size is normal. Bones and chest wall: No suspicious bony lesions. Overlying soft tissues appear unremarkable. IMPRESSION: No acute cardiopulmonary abnormality is seen. Dictated by: Shlomo Coleman M.D. on 08/27/2025 at 12:21 Approved by: Shlomo Coleman M.D. on 08/27/2025 at 12:22
--- NOTE | 2025-08-27 11:59 | DI.CT.S_ITS ---
PROCEDURE: CT ABDOMEN PELVIS W CON INDICATIONS: recent CDiff, rising wbc. Occasional diarrhea TECHNIQUE: After the administration of intravenous contrast, axial sections acquired from the lung bases to the pubic symphysis. Coronal and sagittal reformats were performed. For radiation dose reduction, the following was used: automated exposure control, adjustment of mA and/or kV according to patient size. COMPARISON: [facility], CT, CT CHEST ABD PEL WO CON, 08/20/2025, 11:35. [facility], CT, CT ABDOMEN PELVIS W CON, 08/13/2025, 9:48. FINDINGS: Image quality: Diagnostic. Lower Chest: No significant findings. ABDOMEN: Liver: No solid mass. Gallbladder: No radiopaque gallstones or wall thickening. Biliary ducts: No biliary dilation. Pancreas: No ductal dilation. Spleen: Size is within normal limits. Adrenal Glands: No adrenal nodules. Kidneys and Ureters: No hydronephrosis. No solid mass. No complex renal cystic lesion which requires follow up. Stomach and Bowel: Normal colonic caliber, without significant wall thickening. Large stool burden. Normal appendix. Peritoneum: No abnormal intraperitoneal fluid. No free air. Ventral Wall: No significant ventral hernia. Abdominal Nodes: No retroperitoneal or mesenteric adenopathy by size criteria. Vessels: Aorta and inferior vena cava are normal in size. PELVIS: Pelvic Organs: Unremarkable. Bladder: Mild diffuse wall thickening. Pelvic Nodes: No enlarged lymph nodes. Miscellaneous: No inguinal hernias are seen. Bones: No aggressive osseous abnormality. Degenerative changes of the spine IMPRESSION: 1. Large stool burden, correlate for constipation. Otherwise no significant colonic abnormalities appreciated. 2. Mild urinary bladder wall thickening is similar to prior, correlate with symptoms and urinalysis. 3. Please see above for additional findings. Dictated by: Shlomo Coleman M.D. on 08/27/2025 at 12:24 Approved by: Shlomo Coleman M.D. on 08/27/2025 at 12:29
[2025-08-27] MEDS: SODIUM CHLORIDE 0.9% 1,000 ML 1000 ML IV (12:31)
[2025-08-27] MEDS: CALCIUM GLUCONATE 9.3 MEQ in SODIUM CHLORIDE 0.9% 50 ML 140 MEQ IV (12:32)
[2025-08-27 13:20] LABS: Lactate (Lactic Acid) 0.6 mmol/L (0.7-2.1)
[2025-08-27] MEDS: MAGNESIUM SULFATE 4 GM/100 ML PIGGYBACK IV (13:32)
[2025-08-27] MEDS: ONDANSETRON 4 MG/2 ML INJ IV (13:33)
[2025-08-27] MEDS: CALCIUM CARBONATE 500 MG TAB 1000 MG PO (13:36)
[2025-08-27 14:27] LABS: Procalcitonin 0.145 ng/mL (<0.5)
== END 2025-08-27 16:31 | disposition home or self-care (01) ==
PROVIDERS: Emergency Provider Emergency Medicine; PCP Family Medicine
DX: E83.51 Hypocalcemia (principal); M62.838 Other muscle spasm; E83.42 Hypomagnesemia; I49.1 Atrial premature depolarization; I48.91 Unspecified atrial fibrillation; Z79.01 Long term (current) use of anticoagulants
CPT/HCPCS: 36415; 71045; 74177; 80053; 81003; 83605; 83735; 84145; 85025; 87040; 93005; 96365; 96366; 96367; 96375; 99284; J0612; J2405; J3475; J7030; Q9967

== ENCOUNTER → 2025-08-29 10:41 | Outpatient (CLI) | payer OTHER, SELFPAY ==
[2025-05-23 17:12] VITALS: PULSE 106; RESP 24; O2SAT 94
[2025-08-25 16:48] VITALS: BMI 34.2
[2025-08-29 13:13] LABS: Alanine Aminotransferase 20 IU/L (<50); Albumin 4.2 g/dL (3.5-5.0); Albumin Globulin Ratio 1.6 (1.0-2.8); Alkaline Phosphatase 84 U/L (38-126); Blood Urea Nitrogen 26 mg/dL (9-20); Calcium 8.9 mg/dL (8.4-10.2); Carbon Dioxide 28 mmol/L (22-32); Chloride 96 mmol/L (98-107); Estimated Glomerular Filt Rate > 60 mL/min (>60); Globulin 2.6 g/dL (1.7-4.1); Glucose 193 mg/dL (70-99); HEMOLYSIS < 15 (0-50); Magnesium 1.2 mg/dL (1.6-2.3); Potassium 5.0 mmol/L (3.4-5.1); Sodium 134 mmol/L (137-145); Total Protein 6.8 g/dL (6.3-8.2)
[2025-08-30 12:36] LABS: Calcium 9.1 mg/dL (8.7-10.2); Parathyroid Hormone, Intact 61 pg/mL (15-65)
== END ==
PROVIDERS: PCP Family Medicine; Referring Provider Family Medicine; Visit Provider Family Medicine
DX: E83.51 Hypocalcemia (principal); E83.42 Hypomagnesemia
CPT/HCPCS: 36415; 80053; 82310; 83735; 83970

== ENCOUNTER 2025-09-02 09:35 | Emergency (ER) | payer OTHER, SELFPAY ==
[2025-05-23 17:12] VITALS: PULSE 106; RESP 24; O2SAT 94
[2025-08-25 16:48] VITALS: BMI 34.2
[2025-09-02] VITALS (22 sets, daily range): BP systolic 91–123; BP diastolic 50–72; PULSE 91–125; RESP 12–42; TEMP 36.9; O2SAT 89–96; BMI 35.2
--- OUTSIDE RECORDS SUMMARY | 2025-09-02 09:37 | XMS_ITS | Encounter Summary ---
Author Organization [facility] Address [address] [address] Care Team Providers Care Registered Client Associate Name Role Phone Unavailable Primary Care Provider [...]
--- NOTE | 2025-09-02 09:48 | ED.GENADULT ---
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 Patient also reports recent history of C diff diarrhea has since resolved as of this past . He denies any loss of consciousness, headache, chest pain, shortness breath, cough, sore throat, nausea, vomiting, back pain, abdominal pain, rectal bleeding. Other than what is stated 14 point review system is negative. Related Data Home Medications ?Medication ?Instructions ?Recorded ?Confirmed spironolactone 25 mg tablet 25 mg PO BID 12/28/23 08/31/25 furosemide 40 mg tablet See Rx Instructions .Route 06/10/24 08/31/25 .COMPLEX PRN Swelling tiotropium bromide 18 mcg capsule See Rx Instructions .Route .COMPLEX 05/18/25 08/31/25 with inhalation device (Spiriva with HandiHaler) dapagliflozin propanediol 10 mg 10 mg PO DAILY 06/14/25 08/31/25 tablet famotidine 20 mg tablet 20 mg PO BID 06/14/25 08/31/25 metformin 500 mg tablet See Rx Instructions .Route .COMPLEX 07/02/25 08/31/25 prednisone 10 mg tablet 10 mg PO DAILY 07/02/25 08/31/25 naloxone 4 mg/actuation nasal spray 1 spray intranasal .Once 07/25/25 08/31/25 Previous Rx's ?Medication ?Instructions ?Recorded epinephrine 0.3 mg/0.3 mL 0.3 mg (0.3 mL) IM SEE 07/17/19 injection, auto-injector (EpiPen INSTRUCTIONS #2 ea 2-Nura) albuterol sulfate 90 mcg/actuation See Rx Instructions .Route 01/31/25 aerosol inhaler .COMPLEX #8.5 grams ferrous gluconate 324 mg (37.5 mg 324 mg PO DAILY #90 tabs 01/31/25 iron) tablet finasteride 5 mg tablet 5 mg PO DAILY #90 tabs 01/31/25 gabapentin 600 mg tablet 1,200 mg (2 x 600 mg) PO TID #240 02/27/25 tabs mometasone-formoterol HFA 200 See Rx Instructions .Route 05/07/25 mcg-5 mcg/actuation aerosol .COMPLEX #13 grams inhaler (Dulera) nicotine 14 mg/24 hr daily 1 patch transdermal DAILY #28 ea 05/16/25 transdermal patch trazodone 150 mg tablet 150 mg PO BEDTIME PRN insomnia #30 05/16/25 tabs buprenorphine 2 mg-naloxone 0.5 mg See Rx Instructions buccal 07/05/25 sublingual film (Suboxone) .COMPLEX #30 ea diazepam 2 mg tablet 4 mg (2 x 2 mg) PO BEDTIME PRN 07/20/25 sleep #60 tabs ondansetron 4 mg disintegrating 4 mg PO Q6H PRN nausea and 08/21/25 tablet vomiting #30 tabs beclomethasone dipropionate 80 1 inh inhalation Q12H #10.6 grams 08/22/25 mcg/actuation HFA breath activated aerosol (Qvar RediHaler) glimepiride 4 mg tablet 8 mg (2 x 4 mg) PO BID #240 tabs 08/23/25 apixaban 5 mg tablet (Eliquis) 5 mg PO BID #60 tabs 08/26/25 magnesium oxide 800 mg (2 x 400 mg magnesium) PO 08/31/25 DAILY #60 caps oxycodone-acetaminophen 10 mg-325 See Rx Instructions PO .COMPLEX 08/31/25 mg tablet (Percocet) PRN pain #180 tabs Allergies Allergy/AdvReac Type Severity Reaction Status Date / Time Penicillins (PENICILLINS) Allergy Severe Facial/mouth Verified 09/02/25 09:47 numbness, mouth/lip swelling clindamycin Allergy Intermediate Verified 09/02/25 09:47 cephalexin (CEPHALEXIN) Allergy Mild FACIAL Verified 09/02/25 09:47 SWELLING terbinafine (TERBINAFINE) Allergy Unknown Unknown Verified 09/02/25 09:47 nut - unspecified Allergy Anaphylaxis Verified 09/02/25 09:47 benralizumab (From [facility]) AdvReac Severe SOB Verified 09/02/25 09:47 Cephalosporins AdvReac Intermediate Vomiting Verified 09/02/25 09:47 (CEPHALOSPORINS) Beta-Blockers AdvReac Mild ASTHMA Verified 09/02/25 09:47 (Beta-Adrenergic Bloc nadolol (NADOLOL) AdvReac Mild AGGREVATES Verified 09/02/25 09:47 ASTHMA semaglutide (From Ozempic) AdvReac Mild CONSTIPATIO Verified 09/02/25 09:47 N Sulfa (Sulfonamide AdvReac Mild VOMITING Verified 09/02/25 09:47 Antibiotics) (SULFA (SULFONAMIDE ANTIBIOTICS)) Review of Systems Review of Systems ROS Unobtainable: All systems reviewed & are unremarkable except as noted in HPI and below Patient History Medical History Cold agglutinin disease Tobacco use disorder EMA (generalized anxiety disorder) OCD (obsessive compulsive disorder) Iron deficiency anemia Chronic pain syndrome Cervical stenosis of spinal canal Hypertension Hyperlipidemia Myocarditis Surgical History No pertinent past surgical history Social History marital status: unmarried,single household members: significant other lives independently: Yes occupational status: disabled alcohol intake: never substance use type: does not use tobacco type: cigarettes alcohol intake frequency: other Exam Narrative Exam Narrative: GENERAL: [55] year old patient appears stated age. Well-developed patient, in mild distress. HEAD: Atraumatic. Normocephalic. EYES: Pupils equal round and reactive. Extraocular motions intact. No scleral icterus. No injection or drainage. ENT: Nose without bleeding, purulent drainage. Throat without erythema, tonsillar hypertrophy or exudate. Airway patent. NECK: Trachea midline. Non tender CARDIOVASCULAR: Tachycardic but Regular rate and rhythm without murmurs, gallops, or rubs. RESPIRATORY: Clear to auscultation. Breath sounds equal bilaterally. No wheezes, rales, or rhonchi. GASTROINTESTINAL: Abdomen soft, non-tender, nondistended. EXTREMITIES: No edema or joint tenderness. BACK: Nontender without deformity or crepitance. No flank tenderness. NEURO: AOx3. SKIN: No rash or erythema of visible areas Initial Vital Signs Initial Vital Signs: Vital Signs Temperature 98.4 F 09/02/25 09:39 Pulse Rate 125 H 09/02/25 09:39 Respiratory Rate 16 09/02/25 09:39 Blood Pressure 115/71 09/02/25 09:39 Pulse Oximetry 96 09/02/25 09:39 Oxygen Delivery Method Room Air 09/02/25 09:39 Course Orders Ordered: ED Orders 09/02/25 09:51 XR chest 1V Stat EKG-12 Lead Stat 09/02/25 09:55 Complete Blood Count AUTO DIFF Stat Comprehensive Metabolic Panel Stat Lipase Stat Magnesium Stat NT-proBNP (BNP-Adult 18+) Stat TSH [Thyroid Stimulating Hormone] Stat Troponin I Stat Discontinued Medications Hydromorphone HCl (Hydromorphone 1 Mg/Ml Syringe) 1 mg IV NOW ONE Stop: 09/02/25 10:50 Last Admin: 09/02/25 11:42 Dose: 1 mg Documented By: TONI Lactated Ringer's (Lactated Ringers) 1,000 mls @ 1,000 mls/hr IV BOLUS ONE Stop: 09/02/25 10:50 Last Infusion: 09/02/25 12:10 Dose: Infused Documented By: Admin: 09/02/25 10:24 Dose: 1,000 mls/hr Documented By: ELEN Magnesium Sulfate (Magnesium Sulfate) 2 gm in 50 mls @ 25 mls/hr IV NOW ONE Stop: 09/02/25 12:49 Last Infusion: 09/02/25 13:44 Dose: Infused Documented By: ELEN Co-signed By: TONI Admin: 09/02/25 11:41 Dose: 25 mls/hr Documented By: TONI Co-signed By: STELLA Vital Signs Vital signs: Vital Signs - 8 hr 09/02/25 09:39 09/02/25 09:58 09/02/25 10:00 Temperature 98.4 F Pulse Rate 125 H 111 H Respiratory Rate 16 13 Blood Pressure 115/71 98/57 L Pulse Oximetry 96 94 Oxygen Delivery Method Room Air Oxygen Flow Rate 09/02/25 10:00 09/02/25 10:30 09/02/25 10:30 Temperature Pulse Rate 111 H 101 H Respiratory Rate 16 13 Blood Pressure 95/51 L Pulse Oximetry 94 89 L Oxygen Delivery Method Room Air Oxygen Flow Rate 09/02/25 11:00 09/02/25 11:00 09/02/25 11:30 Temperature Pulse Rate 99 H 100 H Respiratory Rate 13 14 Blood Pressure 99/52 L Pulse Oximetry 90 L 93 Oxygen Delivery Method Nasal Cannula Oxygen Flow Rate 1 09/02/25 11:30 09/02/25 12:00 09/02/25 12:00 Temperature Pulse Rate 97 H Respiratory Rate 13 Blood Pressure 99/55 L 106/58 L Pulse Oximetry 92 Oxygen Delivery Method Oxygen Flow Rate 09/02/25 12:15 09/02/25 12:15 09/02/25 12:30 Temperature Pulse Rate 95 H 96 H Respiratory Rate 14 14 Blood Pressure 108/59 L Pulse Oximetry 94 92 Oxygen Delivery Method Oxygen Flow Rate 09/02/25 12:30 09/02/25 12:45 09/02/25 12:45 Temperature Pulse Rate 97 H Respiratory Rate 12 Blood Pressure 106/58 L 104/57 L Pulse Oximetry 94 Oxygen Delivery Method Oxygen Flow Rate 09/02/25 13:00 09/02/25 13:00 09/02/25 13:15 Temperature Pulse Rate 96 H Respiratory Rate 13 Blood Pressure 92/50 L 105/56 L Pulse Oximetry 93 Oxygen Delivery Method Oxygen Flow Rate 09/02/25 13:15 09/02/25 13:30 09/02/25 13:31 Temperature Pulse Rate 96 H 99 H Respiratory Rate 14 36 H Blood Pressure 107/72 Pulse Oximetry 94 96 Oxygen Delivery Method Oxygen Flow Rate 09/02/25 13:31 09/02/25 13:45 09/02/25 13:45 Temperature Pulse Rate 101 H 92 H Respiratory Rate 34 H 13 Blood Pressure 99/55 L Pulse Oximetry 95 93 Oxygen Delivery Method Oxygen Flow Rate 09/02/25 14:00 09/02/25 14:00 Temperature Pulse Rate 91 H Respiratory Rate 13 Blood Pressure 100/54 L Pulse Oximetry 93 Oxygen Delivery Method Oxygen Flow Rate Medical Decision Making Lab Data 09/02/25 09:55 09/02/25 09:55 Labs: Lab Results 09/02/25 Range/Units 09:55 WBC 17.5 H (4.5-11.0) X10^3/uL RBC 4.00 L (4.5-5.9) X10^6/uL Hgb 11.0 L (13.5-17.5) g/dL Hct 34.0 L (41-53) % MCV 84.9 (80-100) fL MCH 27.5 (26-34) PG MCHC 32.3 (30-36) % RDW 15.8 H (11.6-14.8) % Plt Count 376 (150-400) X10^3/uL Neut % (Auto) 80.2 H (50-75) % Lymph % (Auto) 7.3 L (25-40) % [place] % (Auto) 11.4 (3-14) % Eos % (Auto) 0.6 L (2-4) % Baso % (Auto) 0.5 (0-2) % Neut # (Auto) 67910 H (5069-2776) /uL Lymph # (Auto) 1300 (5774-0724) /uL [place] # (Auto) 2000 H (0-900) /uL Eos # (Auto) 100 (0-450) /uL Baso # (Auto) 100 (0-100) /uL Sodium 133 L (137-145) mmol/L Potassium 4.7 (3.4-5.1) mmol/L Chloride 94 L (98-107) mmol/L Carbon Dioxide 28 (22-32) mmol/L BUN 40 H (9-20) mg/dL Creatinine 1.08 (0.66-1.25) mg/dL Estimated GFR > 60 (>60) mL/min BUN/Creatinine Ratio 37.0 H (6-22) Glucose 283 H (70-99) mg/dL Calcium 9.1 (8.4-10.2) mg/dL Magnesium 1.2 L (1.6-2.3) mg/dL Total Bilirubin 0.3 (0.2-1.3) mg/dL AST 18 (17-59) IU/L ALT 19 (<50) IU/L Alkaline Phosphatase 79 (38-126) U/L Troponin I < 0.012 (0.01-0.034) ng/mL NT-Pro-B Natriuret Pep 209 H (<125) pg/mL Total Protein 7.4 (6.3-8.2) g/dL Albumin 4.3 (3.5-5.0) g/dL Globulin 3.1 (1.7-4.1) g/dL Albumin/Globulin Ratio 1.4 (1.0-2.8) Lipase 23 (23-300) U/L TSH 1.20 (0.47-4.68) uIU/mL Urine Dip Bedside Urine Glucose 1000 mg/dl Bedside Urine Bilirubin - Negative Bedside Urine Ketone - Negative Urine Specific [place] 1.005 Bedside Urine Occult Blood - Negative Bedside Urine pH 7 Bedside Urine Protein - Negative Bedside Urine Urobilinogen - Negative Bedside Urine Nitrite - Negative Bedside Urine Leukocytes - Negative Esterase Point of care testing: Urine Dip Bedside Urine Glucose 1000 mg/dl Bedside Urine Bilirubin - Negative Bedside Urine Ketone - Negative Urine Specific [place] 1.005 Bedside Urine Occult Blood - Negative Bedside Urine pH 7 Bedside Urine Protein - Negative Bedside Urine Urobilinogen - Negative Bedside Urine Nitrite - Negative Bedside Urine Leukocytes - Negative Esterase Imaging Data Chest x-ray: Radiologist's Impression: [address] [address] XRay Report Signed Patient: Bandar George MR#: [id number] : 1970 Acct:[id number] Age/Sex: 55 / M Date of Service: 09/02/25 Loc: ED Accession Number: [id number] Procedure: XR chest 1V Ordering Provider: Dereck Renee D.O. PROCEDURE: XR CHEST 1V INDICATIONS: tachy TECHNIQUE: One view of the chest was acquired. COMPARISON: [facility], CR, XR CHEST 1V, 08/27/2025, 11:32. [facility], CR, XR CHEST 1V, 08/13/2025, 9:30. FINDINGS: Surgical changes and devices: None. Lungs and pleura: Lungs are clear. No pleural effusions or pneumothorax. Mediastinum: Mediastinal contours appear normal. Heart size is normal. Bones and chest wall: No suspicious bony lesions. Overlying soft tissues appear unremarkable. IMPRESSION: No acute cardiopulmonary abnormality is seen. Dictated by: Mehul Contreras M.D. on 09/02/2025 at 10:19 Approved by: Mehul Contreras M.D. on 09/02/2025 at 10:19 ECG Data Interpretation: Sinus Tach HR 108 NC 174 QRS [address]-t wave change Change from 08/27/25 MDM Narrative Medical decision making narrative: All lab work, vital signs, nurse triage note, medication list, previous ER visits, and all imaging studies reviewed. Chest x-ray showed no acute process. CT abdomen and pelvis from 08 27 showed large stool burden and mild urinary bladder wall thickening. WBC 17 0.5 from 17.6 on the previous ER visit hemoglobin stable at 11 platelet 376. Sodium 133 potassium 4.7 chloride 94 CO2 28 BUN 40 creatinine 1.08 glucose 283 calcium 9.1 he has a 1.2 LFTs normal troponin normal BNP 209. Urine showed no acute process Patient given Mag rider here 2 g IV x1. Differential diagnosis dehydration electrolyte derangement sepsis pneumonia UTI. Discharge Plan Departure Patient Disposition: Home Clinical Impression: Chronic low back pain, Hypomagnesemia Instructions: DI for Hypomagnesemia Activity Restrictions/Additional Instructions: Return with new or worsening symptoms. Follow up PCP this week for recheck. Keep hydrated. Prescriptions: No Action trazodone 150 mg tablet 150 mg PO BEDTIME PRN (Reason: insomnia) Qty: 30 2RF nicotine 14 mg/24 hr patch 24 hour 1 patch transdermal DAILY Qty: 28 2RF Rx Instructions: remove one hour before bedtime albuterol sulfate 90 mcg/actuation HFA aerosol inhaler See Rx Instructions .ROUTE .COMPLEX Qty: 8.5 5RF Dose Instruction: inhale 2 puffs by mouth every 6 hours if needed for shortness of breath or wheezing Rx Instructions: inhale 2 puffs by mouth every 6 hours if needed for shortness of breath or wheezing ferrous gluconate 324 mg (37.5 mg iron) tablet 324 mg PO DAILY Qty: 90 3RF finasteride 5 mg tablet 5 mg PO DAILY Qty: 90 1RF Rx Instructions: take 1 tablet by mouth once daily Dulera 200-5 mcg/actuation HFA aerosol inhaler See Rx Instructions .ROUTE .COMPLEX Qty: 13 6RF Dose Instruction: inhale 2 puffs by mouth and INTO THE LUNGS twice a day Rx Instructions: inhale 2 puffs by mouth and INTO THE LUNGS twice a day buprenorphine-naloxone [Suboxone] 2-0.5 mg film See Rx Instructions buccal .COMPLEX Qty: 30 0RF Rx Instructions: place 1/2 strip/tab under side of tongue three times daily until you see provider. Patient under close supervision of PCP, specialist, and assistant case manager diazepam 2 mg tablet 4 mg PO BEDTIME PRN (Reason: sleep) Qty: 60 1RF ondansetron 4 mg tablet,disintegrating 4 mg PO Q6H PRN (Reason: nausea and vomiting) Qty: 30 0RF Qvar RediHaler 80 mcg/actuation HFA aerosol breath activated 1 inh inhalation Q12H Qty: 10.6 2RF epinephrine [EpiPen 2-Nura] 0.3 mg/0.3 mL auto-injector 0.3 mg IM SEE INSTRUCTIONS Qty: 2 5RF spironolactone 25 mg tablet 25 mg PO BID gabapentin 600 mg tablet 1,200 mg PO TID Qty: 240 3RF famotidine 20 mg tablet 20 mg PO BID dapagliflozin propanediol 10 mg tablet 10 mg PO DAILY glimepiride 4 mg tablet 8 mg PO BID Qty: 240 0RF magnesium oxide 400 mg magnesium capsule 800 mg PO DAILY Qty: 60 1RF oxycodone-acetaminophen [Percocet] 10-325 mg tablet See Rx Instructions PO .COMPLEX PRN (Reason: pain) Qty: 180 0RF Rx Instructions: take 2 tablets by mouth every 4 hours if needed for pain. naloxone 4 mg/actuation spray,non-aerosol 1 spray intranasal .Once Eliquis 5 mg Tablet 5 mg PO BID Qty: 60 0RF furosemide 40 mg tablet See Rx Instructions .ROUTE .COMPLEX PRN (Reason: Swelling) Rx Instructions: 1-2 tabs as needed for swelling tiotropium bromide [Spiriva with HandiHaler] 18 mcg capsule, w/inhalation device See Rx Instructions .ROUTE .COMPLEX Rx Instructions: inhale THE contents of 1 capsule in THE HANDIHALER once daily x2 puffs am and x2 puffs hs metformin 500 mg tablet See Rx Instructions .ROUTE .COMPLEX Patient Comments: three tablets in the a.m. Rx Instructions: take 2 tablets by mouth 1700 prednisone 10 mg tablet 10 mg PO DAILY Referrals: Ricardo Victoria MD [Primary Care Provider, Family Practice] Stand Alone Forms: Patient Portal/API
--- NOTE | 2025-09-02 09:51 | EKG_ITS ---
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
--- NOTE | 2025-09-02 09:51 | DI.RAD.S_ITS ---
PROCEDURE: XR CHEST 1V INDICATIONS: tachy TECHNIQUE: One view of the chest was acquired. COMPARISON: [facility], CR, XR CHEST 1V, 08/27/2025, 11:32. [facility], CR, XR CHEST 1V, 08/13/2025, 9:30. FINDINGS: Surgical changes and devices: None. Lungs and pleura: Lungs are clear. No pleural effusions or pneumothorax. Mediastinum: Mediastinal contours appear normal. Heart size is normal. Bones and chest wall: No suspicious bony lesions. Overlying soft tissues appear unremarkable. IMPRESSION: No acute cardiopulmonary abnormality is seen. Dictated by: Mehul Contreras M.D. on 09/02/2025 at 10:19 Approved by: Mehul Contreras M.D. on 09/02/2025 at 10:19
[2025-09-02 10:05] LABS: Add Manual Diff / Slide Review NO; Hematocrit 34.0 % (41-53); Hemoglobin 11.0 g/dL (13.5-17.5); Lymphocytes Absolute Auto 1300 /uL (1100-4500); Mean Corpuscular HGB Conc 32.3 % (30-36); Mean Corpuscular Hemoglobin 27.5 PG (26-34); Mean Corpuscular Volume 84.9 fL (80-100); Platelet Count 376 X10^3/uL (150-400)
[2025-09-02 10:17] LABS: Alanine Aminotransferase 19 IU/L (<50); Albumin 4.3 g/dL (3.5-5.0); Albumin Globulin Ratio 1.4 (1.0-2.8); Alkaline Phosphatase 79 U/L (38-126); Blood Urea Nitrogen 40 mg/dL (9-20); Calcium 9.1 mg/dL (8.4-10.2); Carbon Dioxide 28 mmol/L (22-32); Chloride 94 mmol/L (98-107); Estimated Glomerular Filt Rate > 60 mL/min (>60); Globulin 3.1 g/dL (1.7-4.1); Glucose 283 mg/dL (70-99); HEMOLYSIS < 15 (0-50); Lipase 23 U/L (23-300); Magnesium 1.2 mg/dL (1.6-2.3); Potassium 4.7 mmol/L (3.4-5.1); Sodium 133 mmol/L (137-145); Total Protein 7.4 g/dL (6.3-8.2)
[2025-09-02] MEDS: LACTATED RINGERS 1,000 ML 1000 ML IV (10:24)
[2025-09-02 10:28] LABS: NT-proBNP (BNP-Adult 18+) 209 pg/mL (<125); Troponin I < 0.012 ng/mL (0.01-0.034)
[2025-09-02 11:05] LABS: Thyroid Stimulating Hormone 1.20 uIU/mL (0.47-4.68)
--- NOTE | 2025-09-02 11:21 | PC.NURSE ---
pt sleeping in room. O2 sat dropped to 86% on room air while asleep. Placed on 1L NC and sats improved to 95%
[2025-09-02] MEDS: MAGNESIUM SULFATE 2 GM/50 ML PIGGYBACK IV (11:41)
== END 2025-09-02 15:15 | disposition home or self-care (01) ==
PROVIDERS: Emergency Provider Family Medicine; PCP Family Medicine
DX: M62.830 Muscle spasm of back (principal); E83.42 Hypomagnesemia; F41.9 Anxiety disorder, unspecified; E66.01 Morbid (severe) obesity due to excess calories; I10 Essential (primary) hypertension; E11.40 Type 2 diabetes mellitus with diabetic neuropathy, unspecified
CPT/HCPCS: 36415; 71045; 80053; 81003; 83690; 83735; 83880; 84443; 84484; 85025; 93005; 96365; 96366; 96375; 99284; J1171; J3475; J7120

== ENCOUNTER 2025-09-07 23:44 | Emergency (ER) | payer OTHER, SELFPAY ==
[2025-05-23 17:12] VITALS: PULSE 106; RESP 24; O2SAT 94
[2025-08-25 16:48] VITALS: BMI 34.2
[2025-09-07 23:54] VITALS: BP 118/74; PULSE 129; RESP 18; O2SAT 95; BMI 52.2
[2025-09-08] VITALS (20 sets, daily range): BP systolic 86–146; BP diastolic 55–95; PULSE 116–129; RESP 11–29; TEMP 37.1; O2SAT 89–95
--- OUTSIDE RECORDS SUMMARY | 2025-09-08 | XMS_ITS | Encounter Summary ---
Author Organization [facility] Address [address] [address] Care Team Providers Care Clean Room Operator Name Role Phone Unavailable Primary Care Provider [...]
[2025-09-08 00:31] LABS: Hematocrit 39.7 % (41-53); Hemoglobin 12.7 g/dL (13.5-17.5); Mean Corpuscular HGB Conc 32.0 % (30-36); Mean Corpuscular Hemoglobin 26.8 PG (26-34); Mean Corpuscular Volume 83.6 fL (80-100); Platelet Count 383 X10^3/uL (150-400)
[2025-09-08 00:34] LABS: Add Manual Diff / Slide Review YES
--- NOTE | 2025-09-08 00:50 | PC.NURSE ---
Dr Bloom notified of pt's change in status d/t elevated WBC 27 and continued decreasing SBP, sepsis protocol started
[2025-09-08 00:51] LABS: Band Neutrophils Percent 14.0 % (3-7); Lymphocytes Percent Manual 3.0 % (25-45); Monocytes Percent Manual 10.0 % (2-11); Neutrophils Absolute Manual 23490 /uL (3000-5900); Segmented Neutrophils Percent 73.0 % (38-70); Total Cells Counted 100
[2025-09-08 00:52] LABS: Anisocytosis 1+; Macrocytosis 1+; Toxic Granulation Present
--- NOTE | 2025-09-08 00:58 | ED.GENADULT ---
HPI - General Adult General Chief complaint: Abdominal Pain Stated complaint: abd pain Time Seen by Provider: 09/08/25 00:06 Source: patient and EMS Mode of arrival: EMS History of Present Illness HPI narrative: 55-year-old gentleman with recent recurrent episodes of C diff presents, diabetic with sugars elevated, asthma, proir DVT on current apixaban, paroxysmal afib with left-sided abdominal pain for 24 hrs, increasing pain and fever. Vomiting yesterday. Last diarrheal stool today with 3 episodes of fecal incontinence. Related Data Home Medications ?Medication ?Instructions ?Recorded ?Confirmed spironolactone 25 mg tablet 25 mg PO BID 12/28/23 08/31/25 furosemide 40 mg tablet See Rx Instructions .Route 06/10/24 08/31/25 .COMPLEX PRN Swelling tiotropium bromide 18 mcg capsule See Rx Instructions .Route .COMPLEX 05/18/25 08/31/25 with inhalation device (Spiriva with HandiHaler) dapagliflozin propanediol 10 mg 10 mg PO DAILY 06/14/25 08/31/25 tablet famotidine 20 mg tablet 20 mg PO BID 06/14/25 08/31/25 metformin 500 mg tablet See Rx Instructions .Route .COMPLEX 07/02/25 08/31/25 prednisone 10 mg tablet 10 mg PO DAILY 07/02/25 08/31/25 naloxone 4 mg/actuation nasal spray 1 spray intranasal .Once 07/25/25 08/31/25 Previous Rx's ?Medication ?Instructions ?Recorded epinephrine 0.3 mg/0.3 mL 0.3 mg (0.3 mL) IM SEE 07/17/19 injection, auto-injector (EpiPen INSTRUCTIONS #2 ea 2-Nura) albuterol sulfate 90 mcg/actuation See Rx Instructions .Route 01/31/25 aerosol inhaler .COMPLEX #8.5 grams ferrous gluconate 324 mg (37.5 mg 324 mg PO DAILY #90 tabs 01/31/25 iron) tablet finasteride 5 mg tablet 5 mg PO DAILY #90 tabs 01/31/25 gabapentin 600 mg tablet 1,200 mg (2 x 600 mg) PO TID #240 02/27/25 tabs mometasone-formoterol HFA 200 See Rx Instructions .Route 05/07/25 mcg-5 mcg/actuation aerosol .COMPLEX #13 grams inhaler (Dulera) nicotine 14 mg/24 hr daily 1 patch transdermal DAILY #28 ea 05/16/25 transdermal patch trazodone 150 mg tablet 150 mg PO BEDTIME PRN insomnia #30 05/16/25 tabs buprenorphine 2 mg-naloxone 0.5 mg See Rx Instructions buccal 07/05/25 sublingual film (Suboxone) .COMPLEX #30 ea diazepam 2 mg tablet 4 mg (2 x 2 mg) PO BEDTIME PRN 07/20/25 sleep #60 tabs ondansetron 4 mg disintegrating 4 mg PO Q6H PRN nausea and 08/21/25 tablet vomiting #30 tabs beclomethasone dipropionate 80 1 inh inhalation Q12H #10.6 grams 08/22/25 mcg/actuation HFA breath activated aerosol (Qvar RediHaler) glimepiride 4 mg tablet 8 mg (2 x 4 mg) PO BID #240 tabs 08/23/25 apixaban 5 mg tablet (Eliquis) 5 mg PO BID #60 tabs 08/26/25 magnesium oxide 800 mg (2 x 400 mg magnesium) PO 08/31/25 DAILY #60 caps oxycodone-acetaminophen 10 mg-325 See Rx Instructions PO .COMPLEX 08/31/25 mg tablet (Percocet) PRN pain #180 tabs Allergies Allergy/AdvReac Type Severity Reaction Status Date / Time Penicillins (PENICILLINS) Allergy Severe Facial/mouth Verified 09/02/25 09:47 numbness, mouth/lip swelling clindamycin Allergy Intermediate Verified 09/02/25 09:47 cephalexin (CEPHALEXIN) Allergy Mild FACIAL Verified 09/02/25 09:47 SWELLING terbinafine (TERBINAFINE) Allergy Unknown Unknown Verified 09/02/25 09:47 nut - unspecified Allergy Anaphylaxis Verified 09/02/25 09:47 benralizumab (From Fasenra) AdvReac Severe SOB Verified 09/02/25 09:47 Cephalosporins AdvReac Intermediate Vomiting Verified 09/02/25 09:47 (CEPHALOSPORINS) Beta-Blockers AdvReac Mild ASTHMA Verified 09/02/25 09:47 (Beta-Adrenergic Bloc nadolol (NADOLOL) AdvReac Mild AGGREVATES Verified 09/02/25 09:47 ASTHMA semaglutide (From Ozempic) AdvReac Mild CONSTIPATIO Verified 09/02/25 09:47 N Sulfa (Sulfonamide AdvReac Mild VOMITING Verified 09/02/25 09:47 Antibiotics) (SULFA (SULFONAMIDE ANTIBIOTICS)) Review of Systems Review of Systems Narrative: Pertinent positive and negative findings as per HPI Patient History Medical History Cold agglutinin disease Tobacco use disorder EMA (generalized anxiety disorder) OCD (obsessive compulsive disorder) Iron deficiency anemia Chronic pain syndrome Cervical stenosis of spinal canal Hypertension Hyperlipidemia Myocarditis Surgical History No pertinent past surgical history Social History marital status: unmarried,single household members: significant other lives independently: Yes occupational status: disabled alcohol intake: never substance use type: does not use tobacco type: cigarettes alcohol intake frequency: other Exam Initial Vital Signs Initial Vital Signs: Vital Signs Pulse Rate 129 H 09/07/25 23:54 Respiratory Rate 18 09/07/25 23:54 Blood Pressure 118/74 09/07/25 23:54 Pulse Oximetry 95 09/07/25 23:54 Oxygen Delivery Method Room Air 09/07/25 23:54 General: Appears to feel unwell but in no acute distress. Able to give a complete and coherent history. Well-nourished well-developed HEENT: Moist mucous membranes, normal sclera with reactive pupils, Respiratory: Lungs are clear to auscultation, no wheezing no rales no rhonchi. Full and symmetrical air movement Cardiac: Regular rate and rhythm no murmurs no bruits Abdomen: Soft, significant tenderness along the left side with guarding. No flank pain Skin: Pale, no rashes Neurologic: Grossly neurologically intact with no obvious asymmetries or abnormalities Extremities: No trauma, well perfused Psych: Cooperative, appropriate insight and affect Course Orders Ordered: ED Orders 09/08/25 00:02 EKG-12 Lead Stat 09/08/25 00:15 Complete Blood Count AUTO DIFF Stat 09/08/25 01:03 CT abdomen pelvis w con Stat 09/08/25 01:10 Comprehensive Metabolic Panel Stat Lactate (Lactic Acid) Stat Lipase Stat Magnesium Stat 09/08/25 01:14 Blood Culture Stat 09/08/25 03:25 GI Panel (Film Array) Stat 09/08/25 05:26 Urinalysis and Microscopic Stat Hydromorphone HCl (Hydromorphone 1 Mg/Ml Syringe) 1 mg IV Q15MIN PRN PRN Reason: Pain, Ondansetron HCl (Ondansetron 4 Mg/2 Ml Inj) 4 mg IV NOW PRN PRN Reason: Nausea And Vomiting Ondansetron HCl (Ondansetron 4 Mg Odt) 4 mg PO NOW PRN PRN Reason: Nausea And Vomiting Discontinued Medications Fidaxomicin (Fidaxomicin 200 Mg Tablet) 200 mg PO NOW ONE Stop: 09/08/25 03:42 Last Admin: 09/08/25 04:29 Dose: 200 mg Documented By: OTTONIEL Hydromorphone HCl (Hydromorphone Hcl 0.5 Mg/0.5 Ml Syringe) 0.5 mg IV NOW ONE Stop: 09/08/25 01:03 Last Admin: 09/08/25 01:36 Dose: 0.5 mg Documented By: OTTONIEL Hydromorphone HCl (Hydromorphone Hcl 0.5 Mg/0.5 Ml Syringe) 1 mg IV Q15MIN PRN PRN Reason: Pain, Last Admin: 09/08/25 05:30 Dose: 1 mg Documented By: Admin: 09/08/25 04:30 Dose: 1 mg Documented By: Admin: 09/08/25 03:02 Dose: 1 mg Documented By: OTTONIEL Sodium Chloride (Normal Saline 0.9%) 4,953.24 mls @ 3,302.16 mls/hr 30 ml/kg infuse over 90 min (4953.24 ml) IV NOW ONE Stop: 09/08/25 02:29 Last Infusion: 09/08/25 04:00 Dose: Infused Documented By: Admin: 09/08/25 01:35 Dose: 3,302.16 mls/hr Documented By: OTTONIEL Piperacillin Sod/Tazobactam (Sod 4.5 gm/ Sodium Chloride) 100 mls @ 200 mls/hr IV STAT ONE Stop: 09/08/25 01:01 Last Admin: 09/08/25 01:26 Dose: Not Given Documented By: OTTONIEL Cefepime HCl 2 gm/ Sodium (Chloride) 100 mls @ 200 mls/hr IV STAT ONE Stop: 09/08/25 01:12 Last Infusion: 09/08/25 02:33 Dose: Infused Documented By: Admin: 09/08/25 01:36 Dose: 200 mls/hr Documented By: OTTONIEL Calcium Gluconate 9.3 meq/ (Sodium Chloride) 70 mls @ 140 mls/hr IV NOW ONE Stop: 09/08/25 03:08 Last Infusion: 09/08/25 03:45 Dose: Infused Documented By: Admin: 09/08/25 03:02 Dose: 140 mls/hr Documented By: OTTONIEL Insulin Human Regular (Insulin Regular 100 Unit/Ml 3 Ml Vial) 10 unit IV NOW ONE Stop: 09/08/25 02:40 Last Admin: 09/08/25 03:17 Dose: 10 unit Documented By: OTTONIEL Co-signed By: JOJO Sodium Zirconium Cyclosilicate (Sodium Zirconium Cyclosilicate 10 Gm Powd.Pack) 10 gm PO NOW ONE Stop: 09/08/25 02:40 Last Admin: 09/08/25 03:04 Dose: 10 gm Documented By: OTTONIEL Vital Signs Vital signs: Vital Signs - 8 hr 09/07/25 23:54 09/08/25 00:11 09/08/25 00:13 Temperature 98.7 F Pulse Rate 129 H 129 H Respiratory Rate 18 Blood Pressure 118/74 Pulse Oximetry 95 94 Oxygen Delivery Method Room Air 09/08/25 00:30 09/08/25 00:30 09/08/25 01:00 Temperature Pulse Rate 126 H Respiratory Rate Blood Pressure 86/57 L 96/64 Pulse Oximetry 93 Oxygen Delivery Method 09/08/25 01:00 09/08/25 01:35 09/08/25 01:43 Temperature Pulse Rate 124 H 122 H 122 H Respiratory Rate 12 Blood Pressure Pulse Oximetry 92 92 89 L Oxygen Delivery Method 09/08/25 01:43 09/08/25 02:00 09/08/25 02:00 Temperature Pulse Rate 122 H Respiratory Rate 12 Blood Pressure 98/57 L 104/67 Pulse Oximetry 93 Oxygen Delivery Method 09/08/25 02:30 09/08/25 03:00 09/08/25 03:30 Temperature Pulse Rate 117 H 119 H 123 H Respiratory Rate 23 16 Blood Pressure Pulse Oximetry Oxygen Delivery Method 09/08/25 04:00 09/08/25 04:30 09/08/25 04:58 Temperature Pulse Rate 126 H 121 H 120 H Respiratory Rate 14 14 29 H Blood Pressure Pulse Oximetry 95 Oxygen Delivery Method 09/08/25 04:58 09/08/25 05:00 09/08/25 05:00 Temperature Pulse Rate 118 H Respiratory Rate 19 Blood Pressure 105/58 L 112/63 Pulse Oximetry 95 Oxygen Delivery Method Medical Decision Making Lab Data 09/08/25 00:15 09/08/25 01:10 Labs: Lab Results 09/08/25 09/08/25 09/08/25 Range/Units 00:15 01:10 03:25 WBC 27.0 H (4.5-11.0) X10^3/uL RBC 4.75 (4.5-5.9) X10^6/uL Hgb 12.7 L (13.5-17.5) g/dL Hct 39.7 L (41-53) % MCV 83.6 (80-100) fL MCH 26.8 (26-34) PG MCHC 32.0 (30-36) % RDW 16.2 H (11.6-14.8) % Plt Count 383 (150-400) X10^3/uL Neut % (Auto) Not Reportable Lymph % (Auto) Not Reportable [place] % (Auto) Not Reportable Eos % (Auto) Not Reportable Baso % (Auto) Not Reportable Lymph # (Auto) Not Reportable [place] # (Auto) Not Reportable Baso # (Auto) Not Reportable Total Counted 100 Seg Neutrophils % 73.0 H (38-70) % Band Neutrophils % 14.0 H (3-7) % Lymphocytes % (Manual) 3.0 L (25-45) % Monocytes % (Manual) 10.0 (2-11) % Neutrophils # (Manual) 32393 H (4463-7898) /uL Toxic Granulation Present H Platelet Estimate Adequate on smear RBC Morphology See below Anisocytosis 1+ H Macrocytosis 1+ H Sodium 123 L D (137-145) mmol/L Potassium 6.5 H* D (3.4-5.1) mmol/L Chloride 91 L (98-107) mmol/L Carbon Dioxide 21 L (22-32) mmol/L BUN 91 H (9-20) mg/dL Creatinine 2.88 H (0.66-1.25) mg/dL Estimated GFR 25 L (>60) mL/min BUN/Creatinine Ratio 31.6 H (6-22) Glucose 241 H (70-99) mg/dL POC Whole Bld Glucose (70-99) mg/dL Lactate 1.5 (0.7-2.1) mmol/L Calcium 8.0 L (8.4-10.2) mg/dL Magnesium 1.8 (1.6-2.3) mg/dL Total Bilirubin 0.6 (0.2-1.3) mg/dL AST 29 (17-59) IU/L ALT 15 (<50) IU/L Alkaline Phosphatase 116 (38-126) U/L Total Protein 6.5 (6.3-8.2) g/dL Albumin 3.5 (3.5-5.0) g/dL Globulin 3.0 (1.7-4.1) g/dL Albumin/Globulin Ratio 1.2 (1.0-2.8) Lipase 13 L (23-300) U/L Urine Color Urine Appearance Urine pH (4.5-8.0) Ur Specific [place] (1.000-1.035) Urine Protein (Negative) Urine Glucose (UA) (Negative) g/dL Urine Ketones (NEGATIVE) Urine Occult Blood (Negative) Urine Nitrate (Negative) Urine Bilirubin (NEGATIVE) Urine Urobilinogen (0.2) E.U./dL Ur Leukocyte Esterase (NEGATIVE) Urine RBC (0-5/HPF) Urine WBC (0-5/HPF) Ur Squamous Epith Cells (0-5/HPF) Amorphous Sediment Urine Bacteria (None) Granular Casts (None) Ur Culture Indicated? Vol Urine Centrifuged Stl C. cayetanensis PCR Not detected (Not Detect) Stool Rotavirus (PCR) Not detected (Not Detect) Stool Adenovirus (PCR) Not detected (Not Detect) Stool Astrovirus (PCR) Not detected (Not Detect) Stool Cryptosporidium PCR Not detected (Not Detect) Stl E.coli Shiga Tox PCR Not detected (Not Detect) St Sh/Enteroin Ecoli PCR Not detected (Not Detect) Stl Enterotoxigenic E PCR Not detected (Not Detect) Stool EPEC (PCR) Not detected (Not Detect) Stl E. histolytica PCR Not detected (Not Detect) Stool Giardia Lamblia PCR Not detected (Not Detect) Stool Sapovirus (PCR) Not detected (Not Detect) Stl P. shigelloides PCR Not detected (Not Detect) St Y.enterocolitica PCR Not detected (Not Detect) Stool Vibrio (PCR) Not detected (Not Detect) Stl Vibrio cholerae PCR Not detected (Not Detect) Stl Enteroaggr Ecoli PCR Not detected (Not Detect) Stl Norovirus GI/GII PCR Detected (Not Detect) Campylobacter (PCR) Not detected (Not Detect) C. difficile Tox (PCR) Detected H (Not Detect) Salmonella (PCR) Not detected (Not Detect) 09/08/25 09/08/25 09/08/25 Range/Units 04:24 05:26 05:43 WBC (4.5-11.0) X10^3/uL RBC (4.5-5.9) X10^6/uL Hgb (13.5-17.5) g/dL Hct (41-53) % MCV (80-100) fL MCH (26-34) PG MCHC (30-36) % RDW (11.6-14.8) % Plt Count (150-400) X10^3/uL Neut % (Auto) Lymph % (Auto) [place] % (Auto) Eos % (Auto) Baso % (Auto) Lymph # (Auto) [place] # (Auto) Baso # (Auto) Total Counted Seg Neutrophils % (38-70) % Band Neutrophils % (3-7) % Lymphocytes % (Manual) (25-45) % Monocytes % (Manual) (2-11) % Neutrophils # (Manual) (6337-4903) /uL Toxic Granulation Platelet Estimate RBC Morphology Anisocytosis Macrocytosis Sodium (137-145) mmol/L Potassium (3.4-5.1) mmol/L Chloride (98-107) mmol/L Carbon Dioxide (22-32) mmol/L BUN (9-20) mg/dL Creatinine (0.66-1.25) mg/dL Estimated GFR (>60) mL/min BUN/Creatinine Ratio (6-22) Glucose (70-99) mg/dL POC Whole Bld Glucose 151 H 187 H (70-99) mg/dL Lactate (0.7-2.1) mmol/L Calcium (8.4-10.2) mg/dL Magnesium (1.6-2.3) mg/dL Total Bilirubin (0.2-1.3) mg/dL AST (17-59) IU/L ALT (<50) IU/L Alkaline Phosphatase (38-126) U/L Total Protein (6.3-8.2) g/dL Albumin (3.5-5.0) g/dL Globulin (1.7-4.1) g/dL Albumin/Globulin Ratio (1.0-2.8) Lipase (23-300) U/L Urine Color Yellow Urine Appearance Sl cloudy Urine pH 5.5 (4.5-8.0) Ur Specific [place] 1.010 (1.000-1.035) Urine Protein 1+ H (Negative) Urine Glucose (UA) 1+ H (Negative) g/dL Urine Ketones Negative (NEGATIVE) Urine Occult Blood Negative (Negative) Urine Nitrate Negative (Negative) Urine Bilirubin Negative (NEGATIVE) Urine Urobilinogen 0.2 (0.2) E.U./dL Ur Leukocyte Esterase Negative (NEGATIVE) Urine RBC None seen (0-5/HPF) Urine WBC None seen (0-5/HPF) Ur Squamous Epith Cells 1-5 /hpf (0-5/HPF) Amorphous Sediment 1+ Urine Bacteria None seen (None) Granular Casts 0-1/lpf (None) Ur Culture Indicated? Cult not indicated Vol Urine Centrifuged 10ml (spun) Stl C. cayetanensis PCR (Not Detect) Stool Rotavirus (PCR) (Not Detect) Stool Adenovirus (PCR) (Not Detect) Stool Astrovirus (PCR) (Not Detect) Stool Cryptosporidium PCR (Not Detect) Stl E.coli Shiga Tox PCR (Not Detect) St Sh/Enteroin Ecoli PCR (Not Detect) Stl Enterotoxigenic E PCR (Not Detect) Stool EPEC (PCR) (Not Detect) Stl E. histolytica PCR (Not Detect) Stool Giardia Lamblia PCR (Not Detect) Stool Sapovirus (PCR) (Not Detect) Stl P. shigelloides PCR (Not Detect) St Y.enterocolitica PCR (Not Detect) Stool Vibrio (PCR) (Not Detect) Stl Vibrio cholerae PCR (Not Detect) Stl Enteroaggr Ecoli PCR (Not Detect) Stl Norovirus GI/GII PCR (Not Detect) Campylobacter (PCR) (Not Detect) C. difficile Tox (PCR) (Not Detect) Salmonella (PCR) (Not Detect) Point of Care Testing Glucose POC 187 Point of care testing: Point of Care Testing Glucose POC [address] scan - abdomen/pelvis: Radiologist's Impression: PROCEDURE: CT ABDOMEN PELVIS W CON INDICATIONS: abdominal pain TECHNIQUE: After the administration of intravenous contrast, axial sections acquired from the lung bases to the pubic symphysis. Coronal and sagittal reformats were performed. For radiation dose reduction, the following was used: automated exposure control, adjustment of mA and/or kV according to patient size. COMPARISON: [facility], CT, CT ABDOMEN PELVIS W CON, 08/27/2025, 12:02. FINDINGS: Image quality: Diagnostic Lower chest: Scattered atelectasis. Mild lower lung septal thickening. Mild cardiomegaly. Trace pericardial effusion. Scattered granulomatous calcifications in the mediastinum and hilum. Liver: Relative left lobe hypertrophy. This can be seen with early chronic liver disease. Mild hepatomegaly Gallbladder and biliary system: Distended, no radiopaque gallstones are seen. No high-grade inflammatory changes by CT. CBD is within normal limits, overall 5 mm Pancreas: Xadb-we-mrywuocw parenchymal atrophy. No ductal dilation. Spleen: Nonenlarged Adrenals: No discrete nodules Kidneys: No solid renal mass. No hydronephrosis. Left lower pole and right mid region cysts are seen. Vessels and lymph nodes: The main portal vein is patent. No abdominal aortic aneurysm. Mild aortoiliac atherosclerotic calcifications. No enlarged lymph nodes by size criteria. Bowel and peritoneum: Iqja-kx-krfdqyhh proximal gastric wall thickening. Nondilated appendix. Small volume pelvic free fluid. Ectatic loops of proximal small bowel are seen, without discrete transition point. Moderate to severe diffuse colonic edema and wall thickening. Body wall: Mild diffuse anasarca. Pelvis: Mild scattered bladder wall thickening. Heterogeneous prostate not well assessed on this study. Bones: There are degenerative osseous changes. No aggressive appearing osseous abnormality. IMPRESSION: Moderate to severe dubose proctocolitis Ectatic loops of proximal small bowel also seen, without definite transition point. Possibly enteritis and/or ileus Ohly-xv-qvvpogsf wall thickening seen in the stomach, possibly gastritis. Consider endoscopy correlation for the above findings if clinically needed. Distended gallbladder. Correlate with any right upper quadrant symptoms. Mild bladder wall thickening, correlate urinalysis. Multiple other incidental and likely nonacute findings above. Dictated by: Hernán Kerr M.D. on 09/08/2025 at 1:44 MDM Narrative Medical decision making narrative: CC: Abdominal pain Complicating co-morbidities: Recurrent episodes of Clostridium difficile, most recent test is still positive he has had episodes of diarrhea today Data collected from: patient Medical records reviewed: Primary care note from August 31 is reviewed at that point noted that C diff seemed to be improving and Gastroenterology consult was coming shortly Apparently he cold agglutinin disease followed by Oncology, chronic narcotics for pain medication episodes of atrial flutter were noted Differential considered: Bowel perforation, toxic megacolon, worsening Clostridium difficile disease, abscess, bowel obstruction Exam documented above, pertinent findings include: Tachycardic, hypotensive entire left side of his abdomen is significantly tender with guarding. No skin changes. Peripherally still well perfused on initial exam Lab Test results independently reviewed as above. Pertinent findings: CBC shows leukocytosis at 27 with elevated white blood cell count noted on August 27 and as well. He has 13% bands, toxic granulation is noted Chemistries show acute kidney injury at 2.88. Critical potassium at 6.5 Hyponatremia at 1:23 a.m., calcium low at 8 Liver studies are normal Lactic acid is not elevated Independently reviewed EKG: Sinus tachycardia at a rate of 122, no acute ischemic changes, P waves are slightly peaked. QRS is not significantly widened Imaging studies independently reviewed: CT scan of the abdomen shows Moderate to severe dubose proctocolitis Ectatic loops of proximal small bowel also seen, without definite transition point. Possibly enteritis and/or ileus Ankb-vg-cwpdyuhw wall thickening seen in the stomach, possibly gastritis. Treatments: Fluids at 30 per kilos been initiated, cefepime started Will be given insulin and calcium him for his acute hyperkalemia and incidental treatment for his hypocalcemia oral fidoxamin for his presumed c diff Re-evaluations: 1258am white count returns significantly elevated, blood pressure is falling, patient is re-evaluated, concern for severe sepsis at this time. Thirty per kilos fluid bolus is initiated, antibiotics with concern for GI source started, advanced imaging ordered 245am after 2-1/2 L of fluid for fusion is re-evaluated. Color is significantly improved. Heart rate is coming down blood pressure is coming up. He is still having significant abdominal pain. He is updated on findings and plans for transfer Discussion: 55-year-old gentleman who presents with abdominal pain, was tachycardic on arrival blood pressure was appropriate he was afebrile. Orders were initiated, when CBC returned significantly elevated and blood pressure was falling with heart rate increasing sepsis was diagnosed, time was 12:58am That point blood cultures were added and antibiotics were initiated Diagnosis at this point is pancolitis with concern for worsening recurrent diverticulitis, developing sepsis, acute kidney injury, multiple electrolyte abnormalities with hyperkalemia hyponatremia, hypocalcemia potential for significant worsening and with no capacity for any type of specialty consultation at [place] will need transfer 345am Discussed with Dr Zimmerman, hospitalist with [facility]. [facility] is the closest available hospital with bed capacity. Patient will be transferred for definitive treatment 630am patient is showing positive for norovirus as well as Clostridium difficile Blood cultures are positive at about 6 hours with Gram-positive cocci Discharge Plan Departure Patient Disposition: [facility] Clinical Impression: Severe sepsis, Pancolitis, Clostridium difficile colitis, Acute hyperkalemia, Acute kidney injury, Acute hyponatremia, Hypocalcemia Prescriptions: No Action trazodone 150 mg tablet 150 mg PO BEDTIME PRN (Reason: insomnia) Qty: 30 2RF nicotine 14 mg/24 hr patch 24 hour 1 patch transdermal DAILY Qty: 28 2RF Rx Instructions: remove one hour before bedtime albuterol sulfate 90 mcg/actuation HFA aerosol inhaler See Rx Instructions .ROUTE .COMPLEX Qty: 8.5 5RF Dose Instruction: inhale 2 puffs by mouth every 6 hours if needed for shortness of breath or wheezing Rx Instructions: inhale 2 puffs by mouth every 6 hours if needed for shortness of breath or wheezing ferrous gluconate 324 mg (37.5 mg iron) tablet 324 mg PO DAILY Qty: 90 3RF finasteride 5 mg tablet 5 mg PO DAILY Qty: 90 1RF Rx Instructions: take 1 tablet by mouth once daily Dulera 200-5 mcg/actuation HFA aerosol inhaler See Rx Instructions .ROUTE .COMPLEX Qty: 13 6RF Dose Instruction: inhale 2 puffs by mouth and INTO THE LUNGS twice a day Rx Instructions: inhale 2 puffs by mouth and INTO THE LUNGS twice a day buprenorphine-naloxone [Suboxone] 2-0.5 mg film See Rx Instructions buccal .COMPLEX Qty: 30 0RF Rx Instructions: place 1/2 strip/tab under side of tongue three times daily until you see provider. Patient under close supervision of PCP, specialist, and piano case maker diazepam 2 mg tablet 4 mg PO BEDTIME PRN (Reason: sleep) Qty: 60 1RF ondansetron 4 mg tablet,disintegrating 4 mg PO Q6H PRN (Reason: nausea and vomiting) Qty: 30 0RF Qvar RediHaler 80 mcg/actuation HFA aerosol breath activated 1 inh inhalation Q12H Qty: 10.6 2RF epinephrine [EpiPen 2-Nura] 0.3 mg/0.3 mL auto-injector 0.3 mg IM SEE INSTRUCTIONS Qty: 2 5RF spironolactone 25 mg tablet 25 mg PO BID gabapentin 600 mg tablet 1,200 mg PO TID Qty: 240 3RF famotidine 20 mg tablet 20 mg PO BID dapagliflozin propanediol 10 mg tablet 10 mg PO DAILY glimepiride 4 mg tablet 8 mg PO BID Qty: 240 0RF magnesium oxide 400 mg magnesium capsule 800 mg PO DAILY Qty: 60 1RF oxycodone-acetaminophen [Percocet] 10-325 mg tablet See Rx Instructions PO .COMPLEX PRN (Reason: pain) Qty: 180 0RF Rx Instructions: take 2 tablets by mouth every 4 hours if needed for pain. naloxone 4 mg/actuation spray,non-aerosol 1 spray intranasal .Once Eliquis 5 mg Tablet 5 mg PO BID Qty: 60 0RF furosemide 40 mg tablet See Rx Instructions .ROUTE .COMPLEX PRN (Reason: Swelling) Rx Instructions: 1-2 tabs as needed for swelling tiotropium bromide [Spiriva with HandiHaler] 18 mcg capsule, w/inhalation device See Rx Instructions .ROUTE .COMPLEX Rx Instructions: inhale THE contents of 1 capsule in THE HANDIHALER once daily x2 puffs am and x2 puffs hs metformin 500 mg tablet See Rx Instructions .ROUTE .COMPLEX Patient Comments: three tablets in the a.m. Rx Instructions: take 2 tablets by mouth 1700 prednisone 10 mg tablet 10 mg PO DAILY Referrals: Ricardo Victoria MD [Primary Care Provider, [facility]] Sepsis Evaluation (ED) Level 1 - Infection Sepsis Infection Criteria Present: Suspected New Infection Level 2 - SIRS Sepsis SIRS Criteria Present: WBC < 4k or > 12k or Bands > 10% and Pulse > 90 bpm Level 3 - Organ Dysfunction Sepsis Organ Dysfunction Criteria Present: SBP < 90 or MAP < 65 mmHg Response It is my opinion that this patient have a likely infectious etiology for meeting sepsis criteria: Does Antibiotics initiated within 1 hr of Sepis dx: Yes Tissue Perfusion Reassessed within 6 hrs of infusion start time: Yes Date of Tissue Perfusion Reassessment completed: 09/08/25 Time Tissue Perfusion Reassessment completed: 02:45
--- NOTE | 2025-09-08 01:03 | DI.CT.S_ITS ---
PROCEDURE: CT ABDOMEN PELVIS W CON INDICATIONS: abdominal pain TECHNIQUE: After the administration of intravenous contrast, axial sections acquired from the lung bases to the pubic symphysis. Coronal and sagittal reformats were performed. For radiation dose reduction, the following was used: automated exposure control, adjustment of mA and/or kV according to patient size. COMPARISON: [facility], CT, CT ABDOMEN PELVIS W CON, 08/27/2025, 12:02. FINDINGS: Image quality: Diagnostic Lower chest: Scattered atelectasis. Mild lower lung septal thickening. Mild cardiomegaly. Trace pericardial effusion. Scattered granulomatous calcifications in the mediastinum and hilum. Liver: Relative left lobe hypertrophy. This can be seen with early chronic liver disease. Mild hepatomegaly Gallbladder and biliary system: Distended, no radiopaque gallstones are seen. No high-grade inflammatory changes by CT. CBD is within normal limits, overall 5 mm Pancreas: [id number] parenchymal atrophy. No ductal dilation. Spleen: Nonenlarged Adrenals: No discrete nodules Kidneys: No solid renal mass. No hydronephrosis. Left lower pole and right mid region cysts are seen. Vessels and lymph nodes: The main portal vein is patent. No abdominal aortic aneurysm. Mild aortoiliac atherosclerotic calcifications. No enlarged lymph nodes by size criteria. Bowel and peritoneum: Zzvt-ey-jyurjpvc proximal gastric wall thickening. Nondilated appendix. Small volume pelvic free fluid. Ectatic loops of proximal small bowel are seen, without discrete transition point. Moderate to severe diffuse colonic edema and wall thickening. Body wall: Mild diffuse anasarca. Pelvis: Mild scattered bladder wall thickening. Heterogeneous prostate not well assessed on this study. Bones: There are degenerative osseous changes. No aggressive appearing osseous abnormality. IMPRESSION: Moderate to severe dubose proctocolitis Ectatic loops of proximal small bowel also seen, without definite transition point. Possibly enteritis and/or ileus Vlfh-jv-wrcvlhop wall thickening seen in the stomach, possibly gastritis. Consider endoscopy correlation for the above findings if clinically needed. Distended gallbladder. Correlate with any right upper quadrant symptoms. Mild bladder wall thickening, correlate urinalysis. Multiple other incidental and likely nonacute findings above. Dictated by: Hernán Kerr M.D. on 09/08/2025 at 1:44 Approved by: Hernán Kerr M.D. on 09/08/2025 at 1:51
[2025-09-08 01:36] LABS: Lactate (Lactic Acid) 1.5 mmol/L (0.7-2.1); Magnesium 1.8 mg/dL (1.6-2.3)
[2025-09-08] MEDS: CEFEPIME 2 GM in SODIUM CHLORIDE 0.9% 100 ML IV (01:36)
--- NOTE | 2025-09-08 01:38 | EKG_ITS ---
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
[2025-09-08 01:42] LABS: Alanine Aminotransferase 15 IU/L (<50); Albumin 3.5 g/dL (3.5-5.0); Albumin Globulin Ratio 1.2 (1.0-2.8); Alkaline Phosphatase 116 U/L (38-126); Blood Urea Nitrogen 91 mg/dL (9-20); Calcium 8.0 mg/dL (8.4-10.2); Carbon Dioxide 21 mmol/L (22-32); Chloride 91 mmol/L (98-107); Globulin 3.0 g/dL (1.7-4.1); Glucose 241 mg/dL (70-99); HEMOLYSIS < 15 (0-50); Lipase 13 U/L (23-300); Sodium 123 mmol/L (137-145); Total Protein 6.5 g/dL (6.3-8.2)
[2025-09-08 01:48] LABS: Estimated Glomerular Filt Rate 25 mL/min (>60)
[2025-09-08 01:53] LABS: Potassium 6.5 mmol/L (3.4-5.1)
[2025-09-08] MEDS: CALCIUM GLUCONATE 9.3 MEQ in SODIUM CHLORIDE 0.9% 50 ML 140 MEQ IV (03:02)
[2025-09-08] MEDS: SODIUM ZIRCONIUM CYCLOSILICATE 10 GM POWD.PACK PO (03:04)
[2025-09-08] MEDS: INSULIN REGULAR 100 UNIT/ML 3 ML VIAL 10 UNIT IV (03:17)
[2025-09-08] MEDS: FIDAXOMICIN 200 MG TABLET PO (04:29)
[2025-09-08 04:58] LABS: Clostridium difficile toxin AB Detected (Not Detect); Enteroaggregative E.coli Not Detected (Not Detect); Enteropathogenic E.coli Not Detected (Not Detect); Enterotoxigenic E.coli It/st Not Detected (Not Detect); Plesiomonsa shigelloides Not Detected (Not Detect); Shiga-like toxin-prod E.coli Not Detected (Not Detect)
[2025-09-08 05:36] LABS: Appearance Urine UA SL CLOUDY; Bilirubin Urine UA NEGATIVE (NEGATIVE); Color Urine UA YELLOW; Glucose Urine UA 1+ g/dL (Negative); Ketones Urine UA NEGATIVE (NEGATIVE); Leukocyte Esterase Urine UA NEGATIVE (NEGATIVE); Nitrite Urine UA NEGATIVE (Negative); Occult Blood Urine UA NEGATIVE (Negative); Protein Urine UA 1+ (Negative); Specific Gravity Urine UA 1.010 (1.000-1.035); Urobilinogen Urine UA 0.2 E.U./dL (0.2); pH Urine UA 5.5 (4.5-8.0)
[2025-09-08 05:56] LABS: Culture Indicated Urine Cult Not Indicated
[2025-09-08 06:58] LABS: Acinetobacter calcoa-baumannii Not Detected (Not Detect); Bacteroides fragilis Not Detected (Not Detect); Candida auris Not Detected (Not Detect); Candida glabrata Not Detected (Not Detect); Cryptococcus neoformans/gatti Not Detected (Not Detect); Enterobacterales Not Detected (Not Detect); Enterococcus faecalis Not Detected (Not Detect); Enterococcus faecium Not Detected (Not Detect); Klebsiella aerogenes Not Detected (Not Detect); Proteus species Not Detected (Not Detect); Serratia marcescens Not Detected (Not Detect); Staphylococcus epidermidis Not Detected (Not Detect); Staphylococcus lugdunensis Not Detected (Not Detect); Staphylococcus species Not Detected (Not Detect); Stenotrophomonas maltophilia Not Detected (Not Detect); Streptococcus agalactiae (Gr B Not Detected (Not Detect); Streptococcus pneumonia Not Detected (Not Detect); Streptococcus pyogenes (Gr A) Not Detected (Not Detect); Streptococcus species Not Detected (Not Detect)
[2025-09-08] MEDS: SODIUM CHLORIDE 0.9% 1,000 ML 150 ML IV (07:33)
--- NOTE | 2025-09-08 07:36 | PC.NURSE ---
report given to CCT RN, and crew
[2025-09-09 11:36] LABS: C difficie Toxins A and B, EIA Positive (Negative)
== END 2025-09-08 07:55 | disposition short-term general hospital (02) ==
PROVIDERS: Emergency Provider Emergency Medicine; PCP Family Medicine
DX: A41.9 Sepsis, unspecified organism (principal); A04.72 Enterocolitis due to Clostridium difficile, not specified as recurrent; K52.9 Noninfective gastroenteritis and colitis, unspecified; E87.1 Hypo-osmolality and hyponatremia; N17.9 Acute kidney failure, unspecified; E87.5 Hyperkalemia; E83.51 Hypocalcemia; R11.10 Vomiting, unspecified; R50.9 Fever, unspecified; I10 Essential (primary) hypertension
CPT/HCPCS: 74177; 80053; 81001; 82962; 83605; 83690; 83735; 85007; 85025; 87040; 87154; 87324; 87507; 93005; 96361; 96365; 96367; 96372; 96375; 96376; 99284; J0612; J0692; J1171; J7030; J7050; Q9967